=== PATIENT | male | born 1970 | race Caucasian/White ===

== ENCOUNTER 2022-03-16 09:05 | Emergency (ER) | payer SELFPAY ==
--- OUTSIDE RECORDS SUMMARY | 2022-03-16 09:44 | XMS REPORT | Continuity of Care Document ---
:1970 Author Organization [facility] t Address [address] [place] [address] Care Team Providers Name Role Phone Sharpless Primary Care Physician ROYCE GILMORE Attending Clinician Unavailable YOHAN FULLER Attending Clinician Unavailable KEYUR LORENZO Attending Clinician Unavailable JOSEPH LOVELACE Attending Clinician Unavailable Elda Burns DO Attending Clinician 9, [facility] Infusion Chair Attending Clinician Unavailable Joseph Lovelace MD Attending Clinician Bushra Iraheta RN Attending Clinician Rohith Luna LMSW Attending Clinician Unavailable Estefanía Alberts Attending Clinician Doctor Unassigned, [facility] Attending Clinician Unavailable [facility] Attending Clinician Unavailable Gino Garcia Attending Clinician Radha Goldberg Attending Clinician Unavailable Jania Bender LMSW Attending Clinician GINO PENDLETON Attending Clinician Unavailable Aleisha Cook LVN Attending Clinician GAIL HOOKER Attending Clinician Unavailable Janna Cruz DO Attending Clinician Gail Hooker DO Attending Clinician Rick Milton DO Attending Clinician DOMINGO DRISCOLL Attending Clinician Unavailable Morgan GUAMAN, Donna Shrestha Attending Clinician Issac GUAMAN, Hao Attending Clinician Lucia GUAMAN, Kyle Moore Attending Clinician Yamila GUAMAN, Domingo Michel Attending Clinician Steven GUAMAN, Samuel Attending Clinician Odalis GUAMAN, Negin Attending Clinician Alecia GUAMAN, Job Attending Clinician Lanny GUAMAN, Karli Attending Clinician Vish GUAMAN, Keyur Mcnally Attending Clinician Yifan GUAMAN, Nirav Attending Clinician Hannah Manjarrez Attending Clinician LASHAE DURON Attending Clinician Unavailable SAHARA WOOD Attending Clinician Unavailable Ulises Ambrose DO Attending Clinician Rene GUAMAN, Wade Attending Clinician Lul Cisneros DO Attending Clinician Sahara Wood MD Attending Clinician Victor Manuel Hansen MD Attending Clinician Anya GUAMAN, Isma Gunter Attending Clinician RIAN TILLMAN.H. Attending Clinician Unavailable Lashae Holland Attending Clinician Lab, Ang - Db Attending Clinician Unavailable YOHAN BLANCO Attending Clinician Unavailable Kelly Alexander RN Attending Clinician Unavailable KRISTA GARDNER Attending Clinician Unavailable Bonnie GUAMAN, Pavel Baron Attending Clinician Deirdre GUAMAN, Royce Attending Clinician Pavel GUAMAN, Krista Gutierrez Attending Clinician [phone] Chinyere Leon MD Attending Clinician Shreya Aguilar DO Attending Clinician Evonen DO, Lj Attending Clinician Grant GUAMAN, Marge Jones Attending Clinician Luis F GUAMAN, Sathish Attending Clinician Paul GUAMAN, Cheo Jones Attending Clinician Dwayne GUAMAN, Gloria Attending Clinician Cindy Cantu CRNA Attending Clinician [phone] Nino GUAMAN, Patricio Arrington Attending Clinician Naeem Puente Attending Clinician Unavailable Yohan Fuller MD Attending Clinician [phone] Rachel Ji MD Attending Clinician Itzel GUAMAN, Kelsey Attending Clinician Royce Hernández MD Attending Clinician Only, Adc Test Attending Clinician Unavailable ROYCE HERNÁNDEZ Attending Clinician Unavailable Ulices GUAMAN, Niels Lee Attending Clinician Yohan Tee MD Attending Clinician RADHA REEVES Attending Clinician Unavailable Radha Reeves MD Attending Clinician Layne GUAMAN, Rian K.H. Attending Clinician Care, Ang Primary Attending Clinician Unavailable HANNAH ROMERO Attending Clinician Unavailable Anaya Saldivar Attending Clinician Anthony Patel MD Attending Clinician NIRAV GIBSON Attending Clinician Unavailable MARILEE ALLEN Attending Clinician Unavailable DOMINGO RINCON Attending Clinician Unavailable Maral Lopez DO Attending Clinician NAEL MARAL Attending Clinician Unavailable Irasema GUAMAN, Domingo Attending Clinician Shamir Bernal MD Attending Clinician SHAMIR BERNAL Attending Clinician Unavailable Lorenzo LEONARDO, Noe Attending Clinician Unavailable Steph Mancera Attending Clinician Unavailable Visit, Adc Nurse Attending Clinician Unavailable Adilia Chow Attending Clinician RAHUL RODRIGUEZ Attending Clinician Unavailable SHIRA COFFEY Attending Clinician Unavailable CHEO MILLER Admitting Clinician Unavailable YOHAN FULLER Admitting Clinician Unavailable RICK MILTON Admitting Clinician Unavailable Rick Milton DO Admitting Clinician DOMINGO DRISCOLL Admitting Clinician Unavailable Domingo Driscoll MD Admitting Clinician LUL CISNEROS Admitting Clinician Unavailable Victor Manuel Hansen MD Admitting Clinician PAVEL NICOLE Admitting Clinician Unavailable Pavel Nicole MD Admitting Clinician Cheo Miller MD Admitting Clinician Yohan Fuller MD Admitting Clinician [phone] YOHAN TEE Admitting Clinician Unavailable Yohan Tee MD Admitting Clinician Anthony Patel MD Admitting Clinician SHAMIR BERNAL Admitting Clinician Unavailable SHIRA COFEFY Admitting Clinician Unavailable Payers Payer Name Policy Type Policy Number Effective Date Expiration Date Albertina montano [facility] CASEBOOK [id number] 2021 2021 00:00:00 00:00:00 [place] [employer] [id number] 2017 C 00:00:00 [place] PRIMARY [id number] 2018 CARE 00:00:00 MEDICAID SSI PENDING 2021 PENDING 00:00:00 Problems Condition Condition Condition Status Onset Resolution Last Treating Co mments Source Name Details Category Date Date Treatment Clinician Date Overlappin Overlappin Disease Active 2021-03 U nivers g g 2-04 [place] malignant [place] ne[place] Med[place] of colon of colon Branch Hyperkalem Hyperkalem Disease Active 2021-03 U [place] ia ia 0-27 ity of 00:00: [place] 00 Medical Branch E46 E46 Disease Active 2021-03 Univers Unspecifie Unspecifie 0-01 it y of d severe d severe 00:00: [place] protein-ca protein-ca 00 Me dical edwina bland Branch malnutriti malnutriti on on Acute GI Acute GI Disease Active Unive rs bleeding bleeding 9-30 ity of 00:00: [place] 00 Medical Branch Anemia, Anemia, Disease Active Univers unspecifie unspecifie 8-03 it y of d type d type 00:00: [place] 00 Medical Branch Obesity Obesity Disease Active Univers (BMI (BMI 2-28 ity of 30-39.9) 30-39.9) 00:00: [place] 00 Medical Branch GIB GIB Disease Active Univers (gastroint (gastroint 2-28 it y of estinal estinal 00:00: [place] bleeding) bleeding) 00 Medi nani Branch Gastrointe Gastrointe Disease Active Overview : Univers stinal stinal 2-15 Formattin ity of hemorrhage hemorrhage 00:00: g of this [place] , , 00 note Medical unspecifie unspecifie might be Branch d d different gastrointe gastrointe from the stinal stinal original. hemorrhage hemorrhage Added type type automatic ally from request for surgery [id number] Hydronephr Hydronephr Disease Active 2020-03 U [place] osis of osis of 1-07 ity of left left 00:00: [place] kidney kidney 00 Medical Branch Non-functi Non-functi Disease Active Overview : Univers oning oning 11-03 Formattin ity of kidney kidney 00:00: g of this [place] 00 note Medical might be Branch different from the original. Added automatic ally from request for surgery [id number] UPJ UPJ Disease Active Overview: Univer s (ureterope (ureterope 11-03 Formattin ity of lvic lvic 00:00: g of this [place] junction) junction) 00 note Medi nani obstructio obstructio might be Branch n n different from the original. Added automatic ally from request for surgery [id number] Ureteral Ureteral Disease Active Overview: Un cecelia stricture stricture 11-03 Formattin i ty of 00:00: g of this note Medical might be Branch different from the original. Added automatic ally from request for surgery [id number] Renal Renal Disease Active Overview: Univer s stone stone 11-03 Formattin ity of 00:00: g of this note Medical might be Branch different from the original. Added automatic ally from request for surgery [id number] Calculus Calculus Disease Active Overview: Un cecelia of kidney of kidney 4-15 Formattin i ty of 00:00: g of this note Medical might be Branch different from the original. Added automatic ally from request for surgery [id number] Non-STEMI Non-STEMI Disease Active Uni vers (non-ST (non-ST 3-27 ity of elevated elevated 00:00: [place] myocardial myocardial 00 Me dical infarction infarction Br anch ) ) Coronary Coronary Disease Active Unive rs artery artery 3-27 ity of disease disease 00:00: [place] involving involving 00 [facility] [place] Branch coronary coronary artery of artery of [place] heart heart Iron Iron Disease Active Univers deficiency deficiency 3-27 it y of anemia anemia 00:00: [place] 00 Medical Branch SHASHI (acute SHASHI (acute Disease Active U nivers kidney kidney 3-27 ity of injury) injury) 00:00: [place] 00 Medical Branch 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 1-17 [facility] athy athy 00:00: Medical 00 Center Chronic Chronic Disease Active [facility] systolic systolic 00:00: Medica l and and 00 Center diastolic diastolic CHF CHF (congestiv (congestiv e heart e heart failure) failure) DM2 DM2 Disease Active [facility] (diabetes (diabetes 1-16 [facility] mellitus, mellitus, 00:00: [facility] type 2) type 2) 00 Center Anemia Anemia Disease Active [facility] 00:[facility]: Medical 00 Center Hyperlipid Hyperlipid Disease Active [facility] em[facility] emia 1[facility]16 [facility] 00:[facility]: Medical 00 Center Ex-smoker Ex-smoker Disease Active [facility] 00:00: Medical 00 [place] Acute Acute Disease Active 2017- [facility] ischemic ischemic 1-15 [facility] stroke stroke 00:00: Medical [place] Essential Essential Disease Active 2017- [facility] hypertensi hypertensi 1-15 [facility] k[facility] on on 00:00: Medical 00 [place] Allergies, Adverse Reactions, Alerts Allergy Allergy Status Severity Reaction(s) Onset Inactive Treating Comm ents Source Name Type Date Date Clinician NO KNOWN Drug Active Univers ALLERGIE Class ity of S [facility] NO KNOWN Allergy Active [facility] Social History Social Habit Start Date Stop Date Quantity Comments Source History of tobacco Passive smoker Un iversity of use [place] [facility] History SDCA University o f Alcohol Comment [place] Med ical [facility] Exposure to 2022-03-03 2022-03-13 Not sure University SARS-CoV-2 (event) 00:00:00 14:22:00 [facility] Branch Alcohol intake 2022-01-12 2022-01-12 Current University of 00:00:00 00:00:00 non-drinker of [facility] alcohol Branch (finding) History SDOH 2022-01-02 2022-01-02 1 University o f Financial 00:00:00 00:00:00 [place] [facility] History SDOH Food 2022-01-02 2022-01-02 1 Univers ity of Worry 00:00:00 00:00:00 [place] [facility] History SDOH Food 2022-01-02 2022-01-02 1 Univers ity of Scarcity 00:00:00 00:00:00 [place] [facility] History SDOH 2022-01-02 2022-01-02 1 University o f Transport Med 00:00:00 00:00:00 [place] Medic al Branch History SDOH 2022-01-02 2022-01-02 1 University o f Transport Non-Med 00:00:00 00:00:00 [place] M edical Branch History SDOH 2021-10-25 2021-10-25 1 University o f Alcohol Frequency 00:00:00 00:00:00 [place] M edical Branch History SDOH 2021-10-25 2021-10-25 0 University o f Alcohol Std Drinks 00:00:00 00:00:00 [place] [facility] History SDOH 2021-10-25 2021-10-25 1 University o f Alcohol Binge 00:00:00 00:00:00 [place] Medic al Branch Education 2020-11-12 2020-11-12 16 [facility] 00:00:00 00:00:00 [facility] Cigarettes smoked 2017-03-21 2017-03-[address] [facility] current (pack per 00:00:00 00:00:00 [facility] Center day) - Reported Cigarette 2017-03-21 2017-03-[address] [facility] pack-years 00:00:00 00:00:00 [facility] Tobacco use and 2017-03-21 2017-03-[address] [facility] [address] [facility] k[facility] exposure 00:00:00 00:00:00 [facility] Tobacco Comment 2017-03-21 2017-03-21 1 pack per day, [facility] 00:00:00 00:00:00 stopped 1 year Medical Ce nter ago Sex Assigned At [address] [facility] kes 00:00:00 00:00:00 [facility] Smoking Status Start Date Stop Date Source Ex-smoker 2021-12-29 00:00:00 2021-12-29 00:00:00 Universi ty [facility] Medications Ordered Filled Start Stop Current Ordering Indication Dosage Frequency Signature Comments Components Source Medication Medication Date Date Medication? Clinician (SIG) Name Name fluorouraci 2022- Yes [id number] 2400mg/ 4,440 mg Univers L (ADRUCIL) 03-14 m2 (2,400 ity o f 4,440 mg in 22:30: 20:29 mg/m2 [place] NaCl 0.9% 00 :00 ?1.85 m2 Medica l (NS) 241 mL Treatment Bra [facility] infusion Plan BSA pump (for from home use) Recorded weight), Continuous IV Infusion, OVER 46 HOURS, First dose on Sun03/14/22 at 1630, For 1 dose fluorouraci 2022- No [id number] 400mg/m 740 mg Univers L (ADRUCIL) 03-14 2 (400 mg/m2 i ty of 740 mg in 22:15: 21:25 ?1.85 m2 [place] as NaCl 0.9% 00 :00 Treatment Medic al (NS) 100 mL Plan BSA Bran ch infusion from Recorded weight), IV Infusion, ONCE, Administer over 15 Minutes, On Sun03/14/22 at 1615, For 1 dose
Do not refrigerat e.
leucovorin 2022- No [id number] 400mg/m 740 mg Univers 740 mg in 03-14 2 (400 mg/m2 ity of D5W 250 mL 20:15: 21:11 ?1.85 m2 [place] infusion 00 :00 Treatment Medica l Plan BSA Branch from Recorded weight), IV Piggyback, ONCE, 1 dose, On Sun03/14/22 at 1415, Administer over 120 Minutes, 250 mL bevacizumab 2022- No [id number] 5mg/kg 400 mg Univers -bvzr 03-14 (rounded ity of (ZIRABEV) 18:45: 20:32 [place] 364.5 [place] 400 mg in 00 :00 mg = 5 Medical NaCl 0.9% mg/kg Branch (NS) 100 mL ?72.9 kg infusion Treatment plan Recorded weight), IV Infusion, ONCE, Administer over 90 Minutes, On Sun03/14/22 at 1245, For 1 dose
Sh ould be diluted in 0.9% Sodium Chloride, not D5W. May store diluted solution in refrigerat or for up to 8 hours.&nbs p;Infuse 1st infusion for 90 minutes; 2nd infusion for 60 minutes; subsequent infusions for 30 minutes if well tolerated.
palonosetro 2022- No [id number] .25mg 0.25 mg, Univers n (ALOXI) 03-14 Intravenou ity of injection 18:15: 18:17 s, ONCE, 1 [place] 0.25 mg 00 :00 dose, On Medical Tue Branch 03/14/22 at 1215, Routine
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 Restricted medication : [facility] dexamethaso 2022- No [id number] 10mg 10 mg, Univers ne sod phos 03-14 Slow IV ity of PF 18:15: 18:18 Push, [place] injection 00 :00 ONCE, 1 Medical 10 mg dose, On Branch Sun10/23 at 1215, 1 mL NaCl 0.9% 2022- No [id number] 500mL at 250 Univers (NS) IV 03-14-10 mL/hr, IV ity of infusion 18:15: 19:15 Infusion, [place] 500 mL 00 :00 ONCE, 1 Medical dose, On Branch Sun03/14/22 at 1215, Routine HYDROcodone 2022- Yes [id number] 1{tbl} Take 1 U nivers -acetaminop 03-1317 tablet by it y of hen ([place]) 00:00: 05:59 [place] 5-325 mg 00 :00 every 12 Medical tablet (twelve) Branch hours as needed for Pain (scale 7-10) for up to 7 days. Indication s: acute pain HYDROcodone 2022- Yes [id number] 1{tbl} Take 1 U nivers -acetaminop -03-21 tablet by it y of hen ([place]) 00:00: 05:59 [place] 5-325 mg 00 :00 every 12 Medical tablet (twelve) Branch hours as needed for Pain (scale 7-10) for up to 7 days. Indication s: acute pain HYDROcodone 2022- Yes [id number] 1{tbl} Take 1 U nivers -acetaminop 03-13 tablet by it y of hen ([place]) 00:00: 05:59 [place] 5-325 mg 00 :00 every 12 Medical tablet (twelve) Branch hours as needed for Pain (scale 7-10) for up to 7 days. Indication s: acute pain HYDROcodone 2022- Yes [id number] 1{tbl} Take 1 U nivers -acetaminop -17 tablet by it y of hen ([place]) 00:00: 05:59 [place] 5-325 mg 00 :00 every 12 Medical tablet (twelve) Branch hours as needed for Pain (scale 7-10) for up to 7 days. Indication s: acute pain HYDROcodone 2022- Yes [id number] 1{tbl} Take 1 U nivers -acetaminop 03-1317 tablet by it y of hen ([place]) 00:00: 05:59 [place] 5-325 mg 00 :00 every 12 Medical tablet (twelve) Branch hours as needed for Pain (scale 7-10) for up to 7 days. Indication s: acute pain HYDROcodone 2022- Yes [id number] 1{tbl} Take 1 U nivers -acetaminop 03-13 tablet by it y of hen ([place]) 00:00: 05:59 [place] 5-325 mg 00 :00 every 12 Medical tablet (twelve) Branch hours as needed for Pain (scale 7-10) for up to 7 days. Indication s: acute pain HYDROcodone 2022- Yes [id number] 1{tbl} Take 1 U nivers -acetaminop 03-13 tablet by it y of hen ([place]) 00:00: 05:59 [place] 5-325 mg 00 :00 every 12 Medical tablet (twelve) Branch hours as needed for Pain (scale 7-10) for up to 7 days. Indication s: acute pain HYDROcodone 2022- Yes [id number] 1{tbl} Take 1 U nivers -acetaminop 03-13 tablet by it y of hen ([place]) 00:00: 05:59 [place] 5-325 mg 00 :00 every 12 Medical tablet (twelve) Branch hours as needed for Pain (scale 7-10) for up to 7 days. Indication s: acute pain HYDROcodone 2022- Yes [id number] 1{tbl} Take 1 U nivers -acetaminop 03-13 tablet by it y of hen ([place]) 00:00: 05:59 [place] 5-325 mg 00 :00 every 12 Medical tablet (twelve) Branch hours as needed for Pain (scale 7-10) for up to 7 days. Indication s: acute pain proCHLORper 2021-03 Yes [id number] 10mg Take 1 Univers azine 10 mg 2-06 tablet by ity of tablet 00:00: mouth [place] 00 every 6 Medical (six) Branch hours as needed for Nausea and Vomiting (N/V). ondansetron 2021-03 Yes [id number] 4mg Take 1 Univers 4 mg 2-06 tablet by ity of disintegrat 00:00: mouth [place] ing tablet 00 every 8 Medica l (eight) Branch hours as needed for Nausea and Vomiting (N/V). proCHLORper 2021-03 Yes [id number] 10mg Take 1 Univers azine 10 mg 2-06 tablet by ity of tablet 00:00: mouth [place] 00 every 6 Medical (six) Branch hours as needed for Nausea and Vomiting (N/V). ondansetron 2021-03 Yes [id number] 4mg Take 1 Univers 4 mg 2-06 tablet by ity of disintegrat 00:00: mouth [place] ing tablet 00 every 8 Medica l (eight) Branch hours as needed for Nausea and Vomiting (N/V). proCHLORper 2021-03 Yes [id number] 10mg Take 1 Univers azine 10 mg 2-06 tablet by ity of tablet 00:00: mouth [place] 00 every 6 Medical (six) Branch hours as needed for Nausea and Vomiting (N/V). ondansetron 2021-03 Yes [id number] 4mg Take 1 Univers 4 mg 2-06 tablet by ity of disintegrat 00:00: mouth [place] ing tablet 00 every 8 Medica l (eight) Branch hours as needed for Nausea and Vomiting (N/V). proCHLORper 2021-03 Yes [id number] 10mg Take 1 Univers azine 10 mg 2-06 tablet by ity of tablet 00:00: mouth [place] 00 every 6 Medical (six) Branch hours as needed for Nausea and Vomiting (N/V). ondansetron 2021-03 Yes [id number] 4mg Take 1 Univers 4 mg 2-06 tablet by ity of disintegrat 00:00: mouth [place] ing tablet 00 every 8 Medica l (eight) Branch hours as needed for Nausea and Vomiting (N/V). proCHLORper 2021-03 Yes [id number] 10mg Take 1 Univers azine 10 mg 2-06 tablet by ity of tablet 00:00: mouth [place] 00 every 6 Medical (six) Branch hours as needed for Nausea and Vomiting (N/V). ondansetron 2021-03 Yes [id number] 4mg Take 1 Univers 4 mg 2-06 tablet by ity of disintegrat 00:00: mouth [place] ing tablet 00 every 8 Medica l (eight) Branch hours as needed for Nausea and Vomiting (N/V). proCHLORper 2021-03 Yes [id number] 10mg Take 1 Univers azine 10 mg 2-06 tablet by ity of tablet 00:00: mouth [place] 00 every 6 Medical (six) Branch hours as needed for Nausea and Vomiting (N/V). ondansetron 2021-03 Yes [id number] 4mg Take 1 Univers 4 mg 2-06 tablet by ity of disintegrat 00:00: mouth [place] ing tablet 00 every 8 Medica l (eight) Branch hours as needed for Nausea and Vomiting (N/V). proCHLORper 2021-03 Yes [id number] 10mg Take 1 Univers azine 10 mg 2-06 tablet by ity of tablet 00:00: mouth [place] 00 every 6 Medical (six) Branch hours as needed for Nausea and Vomiting (N/V). ondansetron 2021-03 Yes [id number] 4mg Take 1 Univers 4 mg 2-06 tablet by ity of disintegrat 00:00: mouth [place] ing tablet 00 every 8 Medica l (eight) Branch hours as needed for Nausea and Vomiting (N/V). proCHLORper 2021-03 Yes [id number] 10mg Take 1 Univers azine 10 mg 2-06 tablet by ity of tablet 00:00: mouth [place] 00 every 6 Medical (six) Branch hours as needed for Nausea and Vomiting (N/V). ondansetron 2021-03 Yes [id number] 4mg Take 1 Univers 4 mg 2-06 tablet by ity of disintegrat 00:00: mouth [place] ing tablet 00 every 8 Medica l (eight) Branch hours as needed for Nausea and Vomiting (N/V). proCHLORper 2021-03 Yes [id number] 10mg Take 1 Univers azine 10 mg 2-06 tablet by ity of tablet 00:00: mouth [place] 00 every 6 Medical (six) Branch hours as needed for Nausea and Vomiting (N/V). ondansetron 2021-03 Yes [id number] 4mg Take 1 Univers 4 mg 2-06 tablet by ity of disintegrat 00:00: mouth [place] ing tablet 00 every 8 Medica l (eight) Branch hours as needed for Nausea and Vomiting (N/V). proCHLORper 2021-03 Yes [id number] 10mg Take 1 Univers azine 10 mg 2-06 tablet by ity of tablet 00:00: mouth [place] 00 every 6 Medical (six) Branch hours as needed for Nausea and Vomiting (N/V). ondansetron 2021-03 Yes [id number] 4mg Take 1 Univers 4 mg 2-06 tablet by ity of disintegrat 00:00: mouth [place] ing tablet 00 every 8 Medica l (eight) Branch hours as needed for Nausea and Vomiting (N/V). proCHLORper 2021-03 Yes [id number] 10mg Take 1 Univers azine 10 mg 2-06 tablet by ity of tablet 00:00: mouth [place] 00 every 6 Medical (six) Branch hours as needed for Nausea and Vomiting (N/V). ondansetron 2021-03 Yes [id number] 4mg Take 1 Univers 4 mg 2-06 tablet by ity of disintegrat 00:00: mouth [place] ing tablet 00 every 8 Medica l (eight) Branch hours as needed for Nausea and Vomiting (N/V). proCHLORper 2021-03 Yes [id number] 10mg Take 1 Univers azine 10 mg 2-06 tablet by ity of tablet 00:00: mouth [place] 00 every 6 Medical (six) Branch hours as needed for Nausea and Vomiting (N/V). ondansetron 2021-03 Yes [id number] 4mg Take 1 Univers 4 mg 2-06 tablet by ity of disintegrat 00:00: mouth [place] ing tablet 00 every 8 Medica l (eight) Branch hours as needed for Nausea and Vomiting (N/V). proCHLORper 2021-03 Yes [id number] 10mg Take 1 Univers azine 10 mg 2-06 tablet by ity of tablet 00:00: mouth [place] 00 every 6 Medical (six) Branch hours as needed for Nausea and Vomiting (N/V). ondansetron 2021-03 Yes [id number] 4mg Take 1 Univers 4 mg 2-06 tablet by ity of disintegrat 00:00: mouth [place] ing tablet 00 every 8 Medica l (eight) Branch hours as needed for Nausea and Vomiting (N/V). proCHLORper 2021-03 Yes [id number] 10mg Take 1 Univers azine 10 mg 2-06 tablet by ity of tablet 00:00: mouth [place] 00 every 6 Medical (six) Branch hours as needed for Nausea and Vomiting (N/V). ondansetron 2021-03 Yes [id number] 4mg Take 1 Univers 4 mg 2-06 tablet by ity of disintegrat 00:00: mouth [place] ing tablet 00 every 8 Medica l (eight) Branch hours as needed for Nausea and Vomiting (N/V). proCHLORper 2021-03 Yes [id number] 10mg Take 1 Univers azine 10 mg 2-06 tablet by ity of tablet 00:00: mouth [place] 00 every 6 Medical (six) Branch hours as needed for Nausea and Vomiting (N/V). ondansetron 2021-03 Yes [id number] 4mg Take 1 Univers 4 mg 2-06 tablet by ity of disintegrat 00:00: mouth [place] ing tablet 00 every 8 Medica l (eight) Branch hours as needed for Nausea and Vomiting (N/V). proCHLORper 2021-03 Yes [id number] 10mg Take 1 Univers azine 10 mg 2-06 tablet by ity of tablet 00:00: mouth [place] 00 every 6 Medical (six) Branch hours as needed for Nausea and Vomiting (N/V). ondansetron 2021-03 Yes [id number] 4mg Take 1 Univers 4 mg 2-06 tablet by ity of disintegrat 00:00: mouth [place] ing tablet 00 every 8 Medica l (eight) Branch hours as needed for Nausea and Vomiting (N/V). proCHLORper 2021-03 Yes [id number] 10mg Take 1 Univers azine 10 mg 2-06 tablet by ity of tablet 00:00: mouth [place] 00 every 6 Medical (six) Branch hours as needed for Nausea and Vomiting (N/V). ondansetron 2021-03 Yes [id number] 4mg Take 1 Univers 4 mg 2-06 tablet by ity of disintegrat 00:00: mouth [place] ing tablet 00 every 8 Medica l (eight) Branch hours as needed for Nausea and Vomiting (N/V). proCHLORper 2021-03 Yes [id number] 10mg Take 1 Univers azine 10 mg 2-06 tablet by ity of tablet 00:00: mouth [place] 00 every 6 Medical (six) Branch hours as needed for Nausea and Vomiting (N/V). ondansetron 2021-03 Yes [id number] 4mg Take 1 Univers 4 mg 2-06 tablet by ity of disintegrat 00:00: mouth [place] ing tablet 00 every 8 Medica l (eight) Branch hours as needed for Nausea and Vomiting (N/V). proCHLORper 2021-03 Yes [id number] 10mg Take 1 [facility] azine 10 mg 2-06 tablet by [facility] of tablet 00:00: mouth [place] 00 every 6 Medical (six) Branch hours as needed for Nausea and Vomiting (N/V). ondansetron 2021-03 Yes [id number] 4mg Take 1 [facility] 4 mg 2-06 tablet by ity of disintegrat 00:00: mouth [place] ing tablet 00 every 8 Medica l (eight) Branch hours as needed for Nausea and Vomiting (N/V). proCHLORper 2021-03 Yes [id number] 10mg Take 1 [facility] azine 10 mg 2-06 tablet by ity of tablet 00:00: mouth [place] 00 every 6 Medical (six) Branch hours as needed for Nausea and Vomiting (N/V). ondansetron 2021-03 Yes [id number] 4mg Take 1 [facility] 4 mg 2-06 tablet by ity of disintegrat 00:00: mouth [place] ing tablet 00 every 8 Medica l (eight) Branch hours as needed for Nausea and Vomiting (N/V). proCHLORper 2021-03 Yes [id number] 10mg Take 1 [facility] azine 10 mg 2-06 tablet by ity of tablet 00:00: mouth [place] 00 every 6 Medical (six) Branch hours as needed for Nausea and Vomiting (N/V). ondansetron 2021-03 Yes [id number] 4mg Take 1 [facility] 4 mg 2-06 tablet by ity of disintegrat 00:00: mouth [place] ing tablet 00 every 8 Medica l (eight) Branch hours as needed for Nausea and Vomiting (N/V). proCHLORper 2021-03 Yes [id number] 10mg Take 1 [facility] azine 10 mg 2-06 tablet by ity of tablet 00:00: mouth [place] 00 every 6 Medical (six) Branch hours as needed for Nausea and Vomiting (N/V). ondansetron 2021-03 Yes [id number] 4mg Take 1 [facility] 4 mg 2-06 tablet by ity of disintegrat 00:00: mouth [place] ing tablet 00 every 8 Medica l (eight) Branch hours as needed for Nausea and Vomiting (N/V). proCHLORper 2021-03 Yes [id number] 10mg Take 1 [facility] azine 10 mg 2-06 tablet by ity of tablet 00:00: mouth [place] 00 every 6 Medical (six) Branch hours as needed for Nausea and Vomiting (N/V). ondansetron 2021-03 Yes [id number] 4mg Take 1 [facility] 4 mg 2-06 tablet by ity of disintegrat 00:00: mouth [place] ing tablet 00 every 8 Medica l (eight) Branch hours as needed for Nausea and Vomiting (N/V). amLODIPine 2021-03 Yes [id number] 10mg Take 1 [facility] 10 mg 1-23 tablet by ity of tablet 00:00: mouth in [place] 00 the Medical morning. Branch tamsulosin 2021-03 Yes [id number] .4mg Take 1 [facility] (FLOMAX) 1-23 capsule by ity o f 0.4 mg 24 00:00: mouth in [facility] s hr capsule 00 the Medical morning. Branch psyllium 2021-03 Yes [id number] 1{packe Take 1 [facility] husk 3.4 1-23 t} Packet by [facility] gram oral 00:00: mouth [place] powder 00 the Medical packet morning Branch and 1 Packet at noon and 1 Packet in the evening. diphenoxyla 2021-03 Yes [id number] 1{tbl} Take 1 [facility] te-atropine 1-23 tablet by ity of 2.5-0.025 00:00: mouth [place] mg tablet 00 every 6 Medical (six) Branch hours. glipiZIDE 5 2021-03 Yes [id number] TAKE 1 [facility] mg tablet 1-23 TABLET BY ity o f 00:00: MOUTH [place] 00 TWICE Medical DAILY Branch BEFORE BREAKFAST AND BEFORE SUPPER fenofibrate 2021-03 Yes [id number] 134mg Take 1 [facility] micronized 1-23 capsule by ity of 134 mg 00:00: mouth in [place] capsule 00 the Medical morning. Branch sodium 2021-03 Yes [id number] 15mL Take 15 mL [facility] nivers citrate-cit 1-23 by mouth ity of nayan acid 00:00: in the [place] 500-334 00 morning Medical mg/5 mL and 15 mL Branch solution in the evening. loperamide 2021-03 Yes [id number] 2mg Take 1 [facility] nivers 2 mg 1-23 capsule by ity of capsule 00:00: mouth [place] 00 every 4 Medical (four) Branch hours. metoprolol 2021-03 Yes [id number] 25mg Take 1 [facility] nivers tartrate 25 1-23 tablet by [facility] of mg tablet 00:00: [place] 00 the Medical morning Branch and 1 tablet in the evening. furosemide 2021-03 Yes [id number] 40mg Take 1 [facility] nivers 40 mg 1-23 tablet by ity of tablet 00:00: mouth in [place] 00 the Medical morning. Branch ergocalcife 2021-03 Yes [id number] 23752D Take 1 [facility] rol, 1-23 capsule by ity of vitamin d2, 00:00: mouth [place] 1,250 mcg 00 weekly. Medical (50,000 Branch unit) capsule FLUoxetine 2021-03 Yes [id number] 60mg Take 3 [facility] nivers 20 mg 1-23 capsules ity of capsule 00:00: by mouth [place] 00 in the Medical morning. Branch atorvastati 2021-03 Yes [id number] 80mg Take 1 [facility] n 80 mg 1-23 tablet by ity of tablet 00:00: mouth at [place] 00 bedtime. Medical Branch simethicone 2021-03 Yes [id number] 80mg Take 1 [facility] 80 mg 1-23 tablet by ity of chewable 00:00: mouth in [place] tablet 00 the Medical morning Branch and 1 tablet at noon and 1 tablet in the evening. Take with meals. amLODIPine 2021-03 Yes [id number] 10mg Take 1 [facility] 10 mg 1-23 tablet by ity of tablet 00:00: mouth in [place] 00 the Medical morning. Branch tamsulosin 2021-03 Yes [id number] .4mg Take 1 [facility] (FLOMAX) 1-23 capsule by ity o f 0.4 mg 24 00:00: mouth in [facility] s hr capsule 00 the Medical morning. Branch psyllium 2021-03 Yes [id number] 1{packe Take 1 [facility] husk 3.4 1-23 t} Packet by [facility] of gram oral 00:00: mouth [place] powder 00 the Medical packet morning Branch and 1 Packet at noon and 1 Packet in the evening. diphenoxyla 2021-03 Yes [id number] 1{tbl} Take 1 [facility] te-atropine 1-23 tablet by ity of 2.5-0.025 00:00: mouth [place] mg tablet 00 every 6 Medical (six) Branch hours. glipiZIDE 5 2021-03 Yes [id number] TAKE 1 [facility] mg tablet 1-23 TABLET BY ity o f 00:00: MOUTH [place] 00 TWICE Medical DAILY Branch BEFORE BREAKFAST AND BEFORE SUPPER fenofibrate 2021-03 Yes [id number] 134mg Take 1 [facility] micronized 1-23 capsule by ity of 134 mg 00:00: mouth in [place] capsule 00 the Medical morning. Branch sodium 2021-03 Yes [id number] 15mL Take 15 mL U nivers citrate-cit 1-23 by mouth ity of nayan acid 00:00: in the [place] 500-334 00 morning Medical mg/5 mL and 15 mL Branch solution in the evening. loperamide 2021-03 Yes [id number] 2mg Take 1 [facility] nivers 2 mg 1-23 capsule by ity of capsule 00:00: mouth [place] 00 every 4 Medical (four) Branch hours. metoprolol 2021-03 Yes [id number] 25mg Take 1 U nivers tartrate 25 1-23 tablet by ity of mg tablet 00:00: mouth in [facility] s 00 the Medical morning Branch and 1 tablet in the evening. furosemide 2021-03 Yes [id number] 40mg Take 1 [facility] nivers 40 mg 1-23 tablet by ity of tablet 00:00: mouth in [place] 00 the Medical morning. Branch ergocalcife 2021-03 Yes [id number] 88848G Take 1 [facility] rol, 1-23 capsule by ity of vitamin d2, 00:00: mouth [place] 1,250 mcg 00 weekly. Medical (50,000 Branch unit) capsule FLUoxetine 2021-03 Yes [id number] 60mg Take 3 U nivers 20 mg 1-23 capsules ity of capsule 00:00: by mouth [place] 00 in the Medical morning. Branch atorvastati 2021-03 Yes [id number] 80mg Take 1 [facility] n 80 mg 1-23 tablet by ity of tablet 00:00: mouth at [place] 00 bedtime. Medical Branch simethicone 2021-03 Yes [id number] 80mg Take 1 [facility] 80 mg 1-23 tablet by ity of chewable 00:00: mouth in [place] tablet 00 the Medical morning Branch and 1 tablet at noon and 1 tablet in the evening. Take with meals. amLODIPine 2021-03 Yes [id number] 10mg Take 1 [facility] 10 mg 1-23 tablet by ity of tablet 00:00: mouth in [place] 00 the Medical morning. Branch tamsulosin 2021-03 Yes [id number] .4mg Take 1 [facility] (FLOMAX) 1-23 capsule by ity o f 0.4 mg 24 00:00: mouth in [facility] hr capsule 00 the Medical morning. Branch psyllium 2021-03 Yes [id number] 1{packe Take 1 [facility] husk 3.4 1-23 t} Packet by ity of gram oral 00:00: mouth in [facility] powder 00 the Medical packet morning Branch and 1 Packet at noon and 1 Packet in the evening. diphenoxyla 2021-03 Yes [id number] 1{tbl} Take 1 [facility] te-atropine 1-23 tablet by ity of 2.5-0.025 00:00: mouth [place] mg tablet 00 every 6 Medical (six) Branch hours. glipiZIDE 5 2021-03 Yes [id number] TAKE 1 [facility] mg tablet 1-23 TABLET BY ity o f 00:00: MOUTH [place] 00 TWICE Medical DAILY Branch BEFORE BREAKFAST AND BEFORE SUPPER fenofibrate 2021-03 Yes [id number] 134mg Take 1 [facility] micronized 1-23 capsule by ity of 134 mg 00:00: mouth in [place] capsule 00 the Medical morning. Branch sodium 2021-03 Yes [id number] 15mL Take 15 mL U nivers citrate-cit 1-23 by mouth ity of nayan acid 00:00: in the [place] 500-334 morning Medical mg/5 mL and 15 mL Branch solution in the evening. loperamide 2021-03 Yes [id number] 2mg Take 1 [facility] nivers 2 mg 1-23 capsule by ity of capsule 00:00: mouth [place] 00 every 4 Medical (four) Branch hours. metoprolol 2021-03 Yes [id number] 25mg Take 1 U nivers tartrate 25 1-23 tablet by ity of mg tablet 00:00: mouth in [facility] 00 the Medical morning Branch and 1 tablet in the evening. furosemide 2021-03 Yes [id number] 40mg Take 1 [facility] nivers 40 mg 1-23 tablet by ity of tablet 00:00: mouth in [place] 00 the Medical morning. Branch ergocalcife 2021-03 Yes [id number] 42936O Take 1 [facility] rol, 1-23 capsule by ity of vitamin d2, 00:00: mouth [place] 1,250 mcg 00 weekly. Medical (50,000 Branch unit) capsule FLUoxetine 2021-03 Yes [id number] 60mg Take 3 U nivers 20 mg 1-23 capsules ity of capsule 00:00: by mouth [place] 00 in the Medical morning. Branch atorvastati 2021-03 Yes [id number] 80mg Take 1 [facility] n 80 mg 1-23 tablet by ity of tablet 00:00: mouth at [place] 00 bedtime. Medical Branch simethicone 2021-03 Yes [id number] 80mg Take 1 [facility] 80 mg 1-23 tablet by ity of chewable 00:00: mouth in [place] tablet 00 the Medical morning Branch and 1 tablet at noon and 1 tablet in the evening. Take with meals. amLODIPine 2021-03 Yes [id number] 10mg Take 1 [facility] 10 mg 1-23 tablet by ity of tablet 00:00: mouth in [place] 00 the Medical morning. Branch tamsulosin 2021-03 Yes [id number] .4mg Take 1 [facility] (FLOMAX) 1-23 capsule by ity o f 0.4 mg 24 00:00: mouth in [facility] s hr capsule 00 the Medical morning. Branch psyllium 2021-03 Yes [id number] 1{packe Take 1 [facility] husk 3.4 1-23 t} Packet by ity of gram oral 00:00: mouth [place] powder 00 the Medical packet morning Branch and 1 Packet at noon and 1 Packet in the evening. diphenoxyla 2021-03 Yes [id number] 1{tbl} Take 1 [facility] te-atropine 1-23 tablet by ity of 2.5-0.025 00:00: mouth [place] mg tablet 00 every 6 Medical (six) Branch hours. glipiZIDE 5 2021-03 Yes [id number] TAKE 1 [facility] mg tablet 1-23 TABLET BY ity o f 00:00: MOUTH [place] 00 TWICE Medical DAILY Branch BEFORE BREAKFAST AND BEFORE SUPPER fenofibrate 2021-03 Yes [id number] 134mg Take 1 [facility] micronized 1-23 capsule by ity of 134 mg 00:00: mouth in [place] capsule 00 the Medical morning. Branch sodium 2021-03 Yes [id number] 15mL Take 15 mL U nivers citrate-cit 1-23 by mouth ity of nayan acid 00:00: in the [place] 500-334 00 morning Medical mg/5 mL and 15 mL Branch solution in the evening. loperamide 2021-03 Yes [id number] 2mg Take 1 U nivers 2 mg 1-23 capsule by ity of capsule 00:00: mouth [place] 00 every 4 Medical (four) Branch hours. metoprolol 2021-03 Yes [id number] 25mg Take 1 U nivers tartrate 25 1-23 tablet by ity of mg tablet 00:00: mouth in [facility] 00 the Medical morning Branch and 1 tablet in the evening. furosemide 2021-03 Yes [id number] 40mg Take 1 U nivers 40 mg 1-23 tablet by ity of tablet 00:00: mouth in [place] 00 the morning. Branch ergocalcife 2021-03 Yes [id number] Take 1 [facility] rol, 1-23 capsule by ity of vitamin d2, 00:00: mouth [place] 1,250 mcg 00 weekly. Medical (50,000 Branch unit) capsule FLUoxetine 2021-03 Yes [id number] 60mg Take 3 U nivers 20 mg 1-23 capsules ity of capsule 00:00: by mouth [place] 00 in the Medical morning. Branch atorvastati 2021-03 Yes [id number] 80mg Take 1 [facility] n 80 mg 1-23 tablet by ity of tablet 00:00: mouth at [place] 00 bedtime. Medical Branch simethicone 2021-03 Yes [id number] 80mg Take 1 [facility] 80 mg 1-23 tablet by ity of chewable 00:00: mouth in [place] tablet 00 the Medical morning Branch and 1 tablet at noon and 1 tablet in the evening. Take with meals. amLODIPine 2021-03 Yes [id number] 10mg Take 1 [facility] 10 mg 1-23 tablet by ity of tablet 00:00: mouth in [place] 00 the morning. Branch tamsulosin 2021-03 Yes [id number] .4mg Take 1 [facility] (FLOMAX) 1-23 capsule by ity o f 0.4 mg 24 00:00: mouth in [facility] s hr capsule 00 the morning. Branch psyllium 2021-03 Yes [id number] 1{packe Take 1 [facility] husk 3.4 1-23 t} Packet by ity of gram oral 00:00: mouth [place] powder 00 the Medical packet morning Branch and 1 Packet at noon and 1 Packet in the evening. diphenoxyla 2021-03 Yes [id number] 1{tbl} Take 1 [facility] te-atropine 1-23 tablet by ity of 2.5-0.025 00:00: mouth [place] mg tablet 00 every 6 Medical (six) Branch hours. glipiZIDE 5 2021-03 Yes [id number] TAKE 1 [facility] mg tablet 1-23 TABLET BY ity o f 00:00: MOUTH [place] 00 TWICE Medical DAILY Branch BEFORE BREAKFAST AND BEFORE SUPPER fenofibrate 2021-03 Yes [id number] 134mg Take 1 [facility] micronized 1-23 capsule by ity of 134 mg 00:00: mouth in [place] capsule 00 the Medical morning. Branch sodium 2021-03 Yes [id number] 15mL Take 15 mL U nivers citrate-cit 1-23 by mouth ity of nayan acid 00:00: in the [place] 500-334 00 morning Medical mg/5 mL and 15 mL Branch solution in the evening. loperamide 2021-03 Yes [id number] 2mg Take 1 U nivers 2 mg 1-23 capsule by ity of capsule 00:00: mouth [place] 00 every 4 Medical (four) Branch hours. metoprolol 2021-03 Yes [id number] 25mg Take 1 U nivers tartrate 25 1-23 tablet by ity of mg tablet 00:00: [facility] the Medical morning Branch and 1 tablet in the evening. furosemide 2021-03 Yes [id number] 40mg Take 1 U nivers 40 mg 1-23 tablet by ity of tablet 00:00: mouth in [place] 00 the Medical morning. Branch ergocalcife 2021-03 Yes [id number] Take 1 [facility] rol, 1-23 capsule by ity of vitamin d2, 00:00: mouth [place] 1,250 mcg 00 weekly. Medical (50,000 Branch unit) capsule FLUoxetine 2021-03 Yes [id number] 60mg Take 3 U nivers 20 mg 1-23 capsules ity of capsule 00:00: by mouth [place] 00 in the Medical morning. Branch atorvastati 2021-03 Yes [id number] 80mg Take 1 [facility] n 80 mg 1-23 tablet by ity of tablet 00:00: mouth at [place] 00 bedtime. Medical Branch simethicone 2021-03 Yes [id number] 80mg Take 1 [facility] 80 mg 1-23 tablet by ity of chewable 00:00: mouth in [place] tablet 00 the Medical morning Branch and 1 tablet at noon and 1 tablet in the evening. Take with meals. amLODIPine 2021-03 Yes [id number] 10mg Take 1 [facility] 10 mg 1-23 tablet by ity of tablet 00:00: mouth in [place] 00 the Medical morning. Branch tamsulosin 2021-03 Yes [id number] .4mg Take 1 [facility] (FLOMAX) 1-23 capsule by ity o f 0.4 mg 24 00:00: mouth in [facility] s hr capsule 00 the Medical morning. Branch psyllium 2021-03 Yes [id number] 1{packe Take 1 [facility] husk 3.4 1-23 t} Packet by ity of gram oral 00:00: mouth in [facility] s powder 00 the Medical packet morning Branch and 1 Packet at noon and 1 Packet in the evening. diphenoxyla 2021-03 Yes [id number] 1{tbl} Take 1 [facility] te-atropine 1-23 tablet by ity of 2.5-0.025 00:00: mouth [place] mg tablet 00 every 6 Medical (six) Branch hours. glipiZIDE 5 2021-03 Yes [id number] TAKE 1 [facility] mg tablet 1-23 TABLET BY ity o f 00:00: MOUTH [place] 00 TWICE Medical DAILY Branch BEFORE BREAKFAST AND BEFORE SUPPER fenofibrate 2021-03 Yes [id number] 134mg Take 1 [facility] micronized 1-23 capsule by ity of 134 mg 00:00: mouth in [place] capsule 00 the Medical morning. Branch sodium 2021-03 Yes [id number] 15mL Take 15 mL U nivers citrate-cit 1-23 by mouth ity of nayan acid 00:00: in the [place] 500-334 00 morning Medical mg/5 mL and 15 mL Branch solution in the evening. loperamide 2021-03 Yes [id number] 2mg Take 1 U nivers 2 mg 1-23 capsule by ity of capsule 00:00: mouth [place] 00 every 4 Medical (four) Branch hours. metoprolol 2021-03 Yes [id number] 25mg Take 1 U nivers tartrate 25 1-23 tablet by ity of mg tablet 00:00: mouth [place] 00 the Medical morning Branch and 1 tablet in the evening. furosemide 2021-03 Yes [id number] 40mg Take 1 U nivers 40 mg 1-23 tablet by ity of tablet 00:00: mouth in [place] 00 the Medical morning. Branch ergocalcife 2021-03 Yes [id number] Take 1 [facility] rol, 1-23 capsule by ity of vitamin d2, 00:00: mouth [place] 1,250 mcg 00 weekly. Medical (50,000 Branch unit) capsule FLUoxetine 2021-03 Yes [id number] 60mg Take 3 U nivers 20 mg 1-23 capsules ity of capsule 00:00: by mouth [place] 00 in the Medical morning. Branch atorvastati 2021-03 Yes [id number] 80mg Take 1 [facility] n 80 mg 1-23 tablet by ity of tablet 00:00: mouth at [place] 00 bedtime. Medical Branch simethicone 2021-03 Yes [id number] 80mg Take 1 [facility] 80 mg 1-23 tablet by ity of chewable 00:00: mouth in [place] tablet 00 the Medical morning Branch and 1 tablet at noon and 1 tablet in the evening. Take with meals. amLODIPine 2021-03 Yes [id number] 10mg Take 1 [facility] 10 mg 1-23 tablet by ity of tablet 00:00: mouth in [place] 00 the Medical morning. Branch tamsulosin 2021-03 Yes [id number] .4mg Take 1 [facility] (FLOMAX) 1-23 capsule by ity o f 0.4 mg 24 00:00: mouth in [facility] s hr capsule 00 the Medical morning. Branch psyllium 2021-03 Yes [id number] 1{packe Take 1 [facility] husk 3.4 1-23 t} Packet by ity of gram oral 00:00: mouth in [place] powder 00 the Medical packet morning Branch and 1 Packet at noon and 1 Packet in the evening. diphenoxyla 2021-03 Yes [id number] 1{tbl} Take 1 [facility] te-atropine 1-23 tablet by ity of 2.5-0.025 00:00: mouth [place] mg tablet 00 every 6 Medical (six) Branch hours. glipiZIDE 5 2021-03 Yes [id number] TAKE 1 [facility] mg tablet 1-23 TABLET BY ity o f 00:00: MOUTH [place] 00 TWICE Medical DAILY Branch BEFORE BREAKFAST AND BEFORE SUPPER fenofibrate 2021-03 Yes [id number] 134mg Take 1 [facility] micronized 1-23 capsule by ity of 134 mg 00:00: mouth in [place] capsule 00 the Medical morning. Branch sodium 2021-03 Yes [id number] 15mL Take 15 mL U nivers citrate-cit 1-23 by mouth ity of nayan acid 00:00: in the [place] 500-334 00 morning Medical mg/5 mL and 15 mL Branch solution in the evening. loperamide 2021-03 Yes [id number] 2mg Take 1 U nivers 2 mg 1-23 capsule by ity of capsule 00:00: mouth [place] 00 every 4 Medical (four) Branch hours. metoprolol 2021-03 Yes [id number] 25mg Take 1 U nivers tartrate 25 1-23 tablet by ity of mg tablet 00:00: mouth in [facility] 00 the Medical morning Branch and 1 tablet in the evening. furosemide 2021-03 Yes [id number] 40mg Take 1 U nivers 40 mg 1-23 tablet by ity of tablet 00:00: mouth in [place] 00 the Medical morning. Branch ergocalcife 2021-03 Yes [id number] 64471X Take 1 [facility] rol, 1-23 capsule by ity of vitamin d2, 00:00: mouth [place] 1,250 mcg 00 weekly. Medical (50,000 Branch unit) capsule FLUoxetine 2021-03 Yes [id number] 60mg Take 3 U nivers 20 mg 1-23 capsules ity of capsule 00:00: by mouth [place] 00 in the Medical morning. Branch atorvastati 2021-03 Yes [id number] 80mg Take 1 [facility] n 80 mg 1-23 tablet by ity of tablet 00:00: mouth at [place] 00 bedtime. Medical Branch simethicone 2021-03 Yes [id number] 80mg Take 1 [facility] 80 mg 1-23 tablet by ity of chewable 00:00: mouth in [place] tablet 00 the Medical morning Branch and 1 tablet at noon and 1 tablet in the evening. Take with meals. amLODIPine 2021-03 Yes [id number] 10mg Take 1 [facility] 10 mg 1-23 tablet by ity of tablet 00:00: mouth in [place] 00 the Medical morning. Branch tamsulosin 2021-03 Yes [id number] .4mg Take 1 [facility] (FLOMAX) 1-23 capsule by ity o f 0.4 mg 24 00:00: mouth in [place] hr capsule 00 the Medical morning. Branch psyllium 2021-03 Yes [id number] 1{packe Take 1 [facility] husk 3.4 1-23 t} Packet by ity of gram oral 00:00: mouth in [place] powder 00 the Medical packet morning Branch and 1 Packet at noon and 1 Packet in the evening. diphenoxyla 2021-03 Yes [id number] 1{tbl} Take 1 [facility] te-atropine 1-23 tablet by ity of 2.5-0.025 00:00: mouth [place] mg tablet 00 every 6 Medical (six) Branch hours. glipiZIDE 5 2021-03 Yes [id number] TAKE 1 [facility] mg tablet 1-23 TABLET BY ity o f 00:00: MOUTH [place] 00 TWICE Medical DAILY Branch BEFORE BREAKFAST AND BEFORE SUPPER fenofibrate 2021-03 Yes [id number] 134mg Take 1 [facility] micronized 1-23 capsule by ity of 134 mg 00:00: mouth in [place] capsule 00 the Medical morning. Branch sodium 2021-03 Yes [id number] 15mL Take 15 mL U nivers citrate-cit 1-23 by mouth ity of nayan acid 00:00: in the [place] 500-334 00 morning Medical mg/5 mL and 15 mL Branch solution in the evening. loperamide 2021-03 Yes [id number] 2mg Take 1 U nivers 2 mg 1-23 capsule by ity of capsule 00:00: mouth [place] 00 every 4 Medical (four) Branch hours. metoprolol 2021-03 Yes [id number] 25mg Take 1 U nivers tartrate 25 1-23 tablet by ity of mg tablet 00:00: mouth in [place] 00 the Medical morning Branch and 1 tablet in the evening. furosemide 2021-03 Yes [id number] 40mg Take 1 U nivers 40 mg 1-23 tablet by ity of tablet 00:00: mouth in [place] 00 the Medical morning. Branch ergocalcife 2021-03 Yes [id number] 02524O Take 1 [facility] rol, 1-23 capsule by ity of vitamin d2, 00:00: mouth [place] 1,250 mcg 00 weekly. Medical (50,000 Branch unit) capsule FLUoxetine 2021-03 Yes [id number] 60mg Take 3 U nivers 20 mg 1-23 capsules ity of capsule 00:00: by mouth [place] 00 in the Medical morning. Branch atorvastati 2021-03 Yes [id number] 80mg Take 1 [facility] n 80 mg 1-23 tablet by ity of tablet 00:00: mouth at [place] 00 bedtime. Medical Branch simethicone 2021-03 Yes [id number] 80mg Take 1 [facility] 80 mg 1-23 tablet by ity of chewable 00:00: mouth in [place] tablet 00 the Medical morning Branch and 1 tablet at noon and 1 tablet in the evening. Take with meals. amLODIPine 2021-03 Yes [id number] 10mg Take 1 [facility] 10 mg 1-23 tablet by ity of tablet 00:00: mouth in [place] 00 the Medical morning. Branch tamsulosin 2021-03 Yes [id number] .4mg Take 1 [facility] (FLOMAX) 1-23 capsule by ity o f 0.4 mg 24 00:00: mouth in [facility] s hr capsule 00 the Medical morning. Branch psyllium 2021-03 Yes [id number] 1{packe Take 1 [facility] husk 3.4 1-23 t} Packet by ity of gram oral 00:00: mouth in [facility] s powder 00 the Medical packet morning Branch and 1 Packet at noon and 1 Packet in the evening. diphenoxyla 2021-03 Yes [id number] 1{tbl} Take 1 [facility] te-atropine 1-23 tablet by ity of 2.5-0.025 00:00: mouth [place] mg tablet 00 every 6 Medical (six) Branch hours. glipiZIDE 5 2021-03 Yes [id number] TAKE 1 [facility] mg tablet 1-23 TABLET BY ity o f 00:00: MOUTH [place] 00 TWICE Medical DAILY Branch BEFORE BREAKFAST AND BEFORE SUPPER fenofibrate 2021-03 Yes [id number] 134mg Take 1 [facility] micronized 1-23 capsule by ity of 134 mg 00:00: mouth in [place] capsule 00 the Medical morning. Branch sodium 2021-03 Yes [id number] 15mL Take 15 mL U nivers citrate-cit 1-23 by mouth ity of nayan acid 00:00: in the [place] [address] [place] [address] morning Medical mg/5 mL and 15 mL Branch solution in the evening. loperamide 2021-03 Yes [id number] 2mg Take 1 U nivers 2 mg 1-23 capsule by ity of capsule 00:00: mouth [place] 00 every 4 Medical (four) Branch hours. metoprolol 2021-03 Yes [id number] 25mg Take 1 U nivers tartrate 25 1-23 tablet by [facility]y of mg tablet 00:00: mouth [place] 00 the Medical morning Branch and 1 tablet in the evening. furosemide 2021-03 Yes [id number] 40mg Take 1 U nivers 40 mg 1-23 tablet by ity of tablet 00:00: mouth in [place] 00 the Medical morning. Branch ergocalcife 2021-03 Yes [id number] Take 1 [facility] rol, 1-23 capsule by ity of vitamin d2, 00:00: mouth [place] 1,250 mcg 00 weekly. Medical (50,000 Branch unit) capsule FLUoxetine 2021-03 Yes [id number] 60mg Take 3 U nivers 20 mg 1-23 capsules ity of capsule 00:00: by mouth [place] 00 in the Medical morning. Branch atorvastati 2021-03 Yes [id number] 80mg Take 1 [facility] n 80 mg 1-23 tablet by ity of tablet 00:00: mouth at [place] 00 bedtime. Medical Branch simethicone 2021-03 Yes [id number] 80mg Take 1 [facility] 80 mg 1-23 tablet by ity of chewable 00:00: mouth in [place] tablet 00 the Medical morning Branch and 1 tablet at noon and 1 tablet in the evening. Take with meals. amLODIPine 2021-03 Yes [id number] 10mg Take 1 [facility] 10 mg 1-23 tablet by ity of tablet 00:00: mouth in [place] 00 the morning. Branch tamsulosin 2021-03 Yes [id number] .4mg Take 1 [facility] (FLOMAX) 1-23 capsule by ity o f 0.4 mg 24 00:00: mouth in [facility] s hr capsule 00 the Medical morning. Branch psyllium 2021-03 Yes [id number] 1{packe Take 1 [facility] husk 3.4 1-23 t} Packet by [facility] gram oral 00:00: [place] powder 00 the Medical packet morning Branch and 1 Packet at noon and 1 Packet in the evening. diphenoxyla 2021-03 Yes [id number] 1{tbl} Take 1 [facility] te-atropine 1-23 tablet by ity of 2.5-0.025 00:00: mouth [place] mg tablet 00 every 6 Medical (six) Branch hours. glipiZIDE 5 2021-03 Yes [id number] TAKE 1 [facility] mg tablet 1-23 TABLET BY ity o f 00:00: MOUTH [place] 00 TWICE Medical DAILY Branch BEFORE BREAKFAST AND BEFORE SUPPER fenofibrate 2021-03 Yes [id number] 134mg Take 1 [facility] micronized 1-23 capsule by ity of 134 mg 00:00: mouth in [place] capsule 00 the Medical morning. Branch sodium 2021-03 Yes [id number] 15mL Take 15 mL [facility] nivers citrate-cit 1-23 by mouth ity of nayan acid 00:00: in the [place] 500-334 00 morning Medical mg/5 mL and 15 mL Branch solution in the evening. loperamide 2021-03 Yes [id number] 2mg Take 1 [facility] nivers 2 mg 1-23 capsule by ity of capsule 00:00: mouth [place] 00 every 4 Medical (four) Branch hours. metoprolol 2021-03 Yes [id number] 25mg Take 1 [facility] nivers tartrate 25 1-23 tablet by [facility] mg tablet 00:00: [facility] Branch and 1 tablet in the evening. furosemide 2021-03 Yes [id number] 40mg Take 1 [facility] nivers 40 mg 1-23 tablet by ity of tablet 00:00: mouth in [place] 00 the Medical morning. Branch ergocalcife 2021-03 Yes [id number] 41325S Take 1 [facility] rol, 1-23 capsule by ity of vitamin d2, 00:00: mouth [place] 1,250 mcg 00 weekly. Medical (50,000 Branch unit) capsule FLUoxetine 2021-03 Yes [id number] 60mg Take 3 [facility] nivers 20 mg 1-23 capsules ity of capsule 00:00: by mouth [place] 00 in the Medical morning. Branch atorvastati 2021-03 Yes [id number] 80mg Take 1 [facility] n 80 mg 1-23 tablet by ity of tablet 00:00: mouth at [place] 00 bedtime. Medical Branch simethicone 2021-03 Yes [id number] 80mg Take 1 [facility] 80 mg 1-23 tablet by ity of chewable 00:00: mouth in [place] tablet 00 the Medical morning Branch and 1 tablet at noon and 1 tablet in the evening. Take with meals. amLODIPine 2021-03 Yes [id number] 10mg Take 1 [facility] 10 mg 1-23 tablet by ity of tablet 00:00: mouth in [place] 00 the Medical morning. Branch tamsulosin 2021-03 Yes [id number] .4mg Take 1 [facility] (FLOMAX) 1-23 capsule by ity o f 0.4 mg 24 00:00: mouth in [facility] hr capsule 00 the Medical morning. Branch psyllium 2021-03 Yes [id number] 1{packe Take 1 [facility] husk 3.4 1-23 t} Packet by ity of gram oral 00:00: mouth in [facility] powder 00 the Medical packet morning Branch and 1 Packet at noon and 1 Packet in the evening. diphenoxyla 2021-03 Yes [id number] 1{tbl} Take 1 [facility] te-atropine 1-23 tablet by ity of 2.5-0.025 00:00: mouth [place] mg tablet 00 every 6 Medical (six) Branch hours. glipiZIDE 5 2021-03 Yes [id number] TAKE 1 [facility] mg tablet 1-23 TABLET BY ity o f 00:00: MOUTH [place] 00 TWICE Medical DAILY Branch BEFORE BREAKFAST AND BEFORE SUPPER fenofibrate 2021-03 Yes [id number] 134mg Take 1 [facility] micronized 1-23 capsule by ity of 134 mg 00:00: mouth in [place] capsule 00 the Medical morning. Branch sodium 2021-03 Yes [id number] 15mL Take 15 mL [facility] nivers citrate-cit 1-23 by mouth ity of nayan acid 00:00: in the [place] 500-334 morning Medical mg/5 mL and 15 mL Branch solution in the evening. loperamide 2021-03 Yes [id number] 2mg Take 1 [facility] nivers 2 mg 1-23 capsule by ity of capsule 00:00: mouth [place] 00 every 4 Medical (four) Branch hours. metoprolol 2021-03 Yes [id number] 25mg Take 1 [facility] nivers tartrate 25 1-23 tablet by ity of mg tablet 00:00: mouth in [facility] 00 the Medical morning Branch and 1 tablet in the evening. furosemide 2021-03 Yes [id number] 40mg Take 1 [facility] nivers 40 mg 1-23 tablet by ity of tablet 00:00: mouth in [place] 00 the Medical morning. Branch ergocalcife 2021-03 Yes [id number] 09854Z Take 1 [facility] rol, 1-23 capsule by ity of vitamin d2, 00:00: mouth [place] 1,250 mcg 00 weekly. Medical (50,000 Branch unit) capsule FLUoxetine 2021-03 Yes [id number] 60mg Take 3 [facility] nivers 20 mg 1-23 capsules ity of capsule 00:00: by mouth [place] 00 in the Medical morning. Branch atorvastati 2021-03 Yes [id number] 80mg Take 1 [facility] n 80 mg 1-23 tablet by ity of tablet 00:00: mouth at [place] 00 bedtime. Medical Branch simethicone 2021-03 Yes [id number] 80mg Take 1 [facility] 80 mg 1-23 tablet by ity of chewable 00:00: mouth in [place] tablet 00 the Medical morning Branch and 1 tablet at noon and 1 tablet in the evening. Take with meals. amLODIPine 2021-03 Yes [id number] 10mg Take 1 [facility] 10 mg 1-23 tablet by ity of tablet 00:00: mouth in [place] 00 the Medical morning. Branch tamsulosin 2021-03 Yes [id number] .4mg Take 1 [facility] (FLOMAX) 1-23 capsule by ity o f 0.4 mg 24 00:00: mouth [place] hr capsule 00 the Medical morning. Branch psyllium 2021-03 Yes [id number] 1{packe Take 1 [facility] husk 3.4 1-23 t} Packet by it[facility] of gram oral 00:00: mouth [place] powder 00 the Medical packet morning Branch and 1 Packet at noon and 1 Packet in the evening. diphenoxyla 2021-03 Yes [id number] 1{tbl} Take 1 [facility] te-atropine 1-23 tablet by ity of 2.5-0.025 00:00: mouth [place] mg tablet 00 every 6 Medical (six) Branch hours. glipiZIDE 5 2021-03 Yes [id number] TAKE 1 [facility] mg tablet 1-23 TABLET BY ity o f 00:00: MOUTH [place] 00 TWICE Medical DAILY Branch BEFORE BREAKFAST AND BEFORE SUPPER fenofibrate 2021-03 Yes [id number] 134mg Take 1 [facility] micronized 1-23 capsule by ity of 134 mg 00:00: mouth in [place] capsule 00 the Medical morning. Branch sodium 2021-03 Yes [id number] 15mL Take 15 mL U nivers citrate-cit 1-23 by mouth ity of nayan acid 00:00: in the [place] 500-334 00 morning Medical mg/5 mL and 15 mL Branch solution in the evening. loperamide 2021-03 Yes [id number] 2mg Take 1 [facility] nivers 2 mg 1-23 capsule by ity of capsule 00:00: mouth [place] 00 every 4 Medical (four) Branch hours. metoprolol 2021-03 Yes [id number] 25mg Take 1 U nivers tartrate 25 1-23 tablet by ity of mg tablet 00:00: mouth in [facility] 00 the Medical morning Branch and 1 tablet in the evening. furosemide 2021-03 Yes [id number] 40mg Take 1 [facility] nivers 40 mg 1-23 tablet by ity of tablet 00:00: mouth in [place] 00 the Medical morning. Branch ergocalcife 2021-03 Yes [id number] Take 1 [facility] rol, 1-23 capsule by ity of vitamin d2, 00:00: mouth [place] 1,250 mcg 00 weekly. Medical (50,000 Branch unit) capsule FLUoxetine 2021-03 Yes [id number] 60mg Take 3 [facility] nivers 20 mg 1-23 capsules ity of capsule 00:00: by mouth [place] 00 in the Medical morning. Branch atorvastati 2021-03 Yes [id number] 80mg Take 1 [facility] n 80 mg 1-23 tablet by ity of tablet 00:00: mouth at [place] 00 bedtime. Medical Branch simethicone 2021-03 Yes [id number] 80mg Take 1 [facility] 80 mg 1-23 tablet by ity of chewable 00:00: mouth in [place] tablet 00 the Medical morning Branch and 1 tablet at noon and 1 tablet in the evening. Take with meals. amLODIPine 2021-03 Yes [id number] 10mg Take 1 [facility] 10 mg 1-23 tablet by ity of tablet 00:00: mouth in [place] 00 the Medical morning. Branch tamsulosin 2021-03 Yes [id number] .4mg Take 1 [facility] (FLOMAX) 1-23 capsule by ity o f 0.4 mg 24 00:00: mouth in [facility] s hr capsule 00 the Medical morning. Branch psyllium 2021-03 Yes [id number] 1{packe Take 1 [facility] husk 3.4 1-23 t} Packet by ity of gram oral 00:00: mouth [place] powder 00 the Medical packet morning Branch and 1 Packet at noon and 1 Packet in the evening. diphenoxyla 2021-03 Yes [id number] 1{tbl} Take 1 [facility] te-atropine 1-23 tablet by ity of 2.5-0.025 00:00: mouth [place] mg tablet 00 every 6 Medical (six) Branch hours. glipiZIDE 5 2021-03 Yes [id number] TAKE 1 [facility] mg tablet 1-23 TABLET BY ity o f 00:00: MOUTH [place] 00 TWICE Medical DAILY Branch BEFORE BREAKFAST AND BEFORE SUPPER fenofibrate 2021-03 Yes [id number] 134mg Take 1 [facility] micronized 1-23 capsule by ity of 134 mg 00:00: mouth in [place] capsule 00 the Medical morning. Branch sodium 2021-03 Yes [id number] 15mL Take 15 mL U nivers citrate-cit 1-23 by mouth ity of nayan acid 00:00: in the [place] 500-334 00 morning Medical mg/5 mL and 15 mL Branch solution in the evening. loperamide 2021-03 Yes [id number] 2mg Take 1 [facility] nivers 2 mg 1-23 capsule by ity of capsule 00:00: mouth [place] 00 every 4 Medical (four) Branch hours. metoprolol 2021-03 Yes [id number] 25mg Take 1 [facility] nivers tartrate 25 1-23 tablet by ity of mg tablet 00:00: [facility] 00 the Medical morning Branch and 1 tablet in the evening. furosemide 2021-03 Yes [id number] 40mg Take 1 [facility] nivers 40 mg 1-23 tablet by ity of tablet 00:00: mouth in [place] 00 the Medical morning. Branch ergocalcife 2021-03 Yes [id number] Take 1 [facility] rol, 1-23 capsule by ity of vitamin d2, 00:00: mouth [place] 1,250 mcg 00 weekly. Medical (50,000 Branch unit) capsule FLUoxetine 2021-03 Yes [id number] 60mg Take 3 [facility] nivers 20 mg 1-23 capsules ity of capsule 00:00: by mouth [place] 00 in the Medical morning. Branch atorvastati 2021-03 Yes [id number] 80mg Take 1 [facility] n 80 mg 1-23 tablet by ity of tablet 00:00: mouth at [place] 00 bedtime. Medical Branch simethicone 2021-03 Yes [id number] 80mg Take 1 [facility] 80 mg 1-23 tablet by ity of chewable 00:00: mouth in [place] tablet 00 the Medical morning Branch and 1 tablet at noon and 1 tablet in the evening. Take with meals. amLODIPine 2021-03 Yes [id number] 10mg Take 1 [facility] 10 mg 1-23 tablet by ity of tablet 00:00: mouth in [place] 00 the Medical morning. Branch tamsulosin 2021-03 Yes [id number] .4mg Take 1 [facility] (FLOMAX) 1-23 capsule by ity o f 0.4 mg 24 00:00: mouth in [facility] s hr capsule 00 the Medical morning. Branch psyllium 2021-03 Yes [id number] 1{packe Take 1 [facility] husk 3.4 1-23 t} Packet by ity of gram oral 00:00: mouth in [facility] s powder 00 the Medical packet morning Branch and 1 Packet at noon and 1 Packet in the evening. diphenoxyla 2021-03 Yes [id number] 1{tbl} Take 1 [facility] te-atropine 1-23 tablet by ity of 2.5-0.025 00:00: mouth [place] mg tablet 00 every 6 Medical (six) Branch hours. glipiZIDE 5 2021-03 Yes [id number] TAKE 1 [facility] mg tablet 1-23 TABLET BY ity o f 00:00: MOUTH [place] 00 TWICE Medical DAILY Branch BEFORE BREAKFAST AND BEFORE SUPPER fenofibrate 2021-03 Yes [id number] 134mg Take 1 [facility] micronized 1-23 capsule by ity of 134 mg 00:00: mouth in [place] capsule 00 the Medical morning. Branch sodium 2021-03 Yes [id number] 15mL Take 15 mL U nivers citrate-cit 1-23 by mouth ity of nayan acid 00:00: in the [place] 500-334 00 morning Medical mg/5 mL and 15 mL Branch solution in the evening. loperamide 2021-03 Yes [id number] 2mg Take 1 [facility] nivers 2 mg 1-23 capsule by ity of capsule 00:00: mouth [place] 00 every 4 Medical (four) Branch hours. metoprolol 2021-03 Yes [id number] 25mg Take 1 [facility] nivers tartrate 25 1-23 tablet by [facility]y of mg tablet 00:00: mouth [place] 00 the Medical morning Branch and 1 tablet in the evening. furosemide 2021-03 Yes [id number] 40mg Take 1 [facility] nivers 40 mg 1-23 tablet by ity of tablet 00:00: mouth in [place] 00 the Medical morning. Branch ergocalcife 2021-03 Yes [id number] Take 1 [facility] rol, 1-23 capsule by ity of vitamin d2, 00:00: mouth [place] 1,250 mcg 00 weekly. Medical (50,000 Branch unit) capsule FLUoxetine 2021-03 Yes [id number] 60mg Take 3 U nivers 20 mg 1-23 capsules ity of capsule 00:00: by mouth [place] 00 in the Medical morning. Branch atorvastati 2021-03 Yes [id number] 80mg Take 1 [facility] n 80 mg 1-23 tablet by ity of tablet 00:00: mouth at [place] 00 bedtime. Medical Branch simethicone 2021-03 Yes [id number] 80mg Take 1 [facility] 80 mg 1-23 tablet by ity of chewable 00:00: mouth in [place] tablet 00 the Medical morning Branch and 1 tablet at noon and 1 tablet in the evening. Take with meals. amLODIPine 2021-03 Yes [id number] 10mg Take 1 [facility] 10 mg 1-23 tablet by ity of tablet 00:00: mouth in [place] 00 the Medical morning. Branch tamsulosin 2021-03 Yes [id number] .4mg Take 1 [facility] (FLOMAX) 1-23 capsule by ity o f 0.4 mg 24 00:00: mouth in [place] hr capsule 00 the Medical morning. Branch psyllium 2021-03 Yes [id number] 1{packe Take 1 [facility] husk 3.4 1-23 t} Packet by [facility] of gram oral 00:00: mouth [place] powder 00 the Medical packet morning Branch and 1 Packet at noon and 1 Packet in the evening. diphenoxyla 2021-03 Yes [id number] 1{tbl} Take 1 [facility] te-atropine 1-23 tablet by ity of 2.5-0.025 00:00: mouth [place] mg tablet 00 every 6 Medical (six) Branch hours. glipiZIDE 5 2021-03 Yes [id number] TAKE 1 [facility] mg tablet 1-23 TABLET BY ity o f 00:00: MOUTH [place] 00 TWICE Medical DAILY Branch BEFORE BREAKFAST AND BEFORE SUPPER fenofibrate 2021-03 Yes [id number] 134mg Take 1 [facility] micronized 1-23 capsule by ity of 134 mg 00:00: mouth in [place] capsule 00 the Medical morning. Branch sodium 2021-03 Yes [id number] 15mL Take 15 mL U nivers citrate-cit 1-23 by mouth ity of nayan acid 00:00: in the [place] 500-334 00 morning Medical mg/5 mL and 15 mL Branch solution in the evening. loperamide 2021-03 Yes [id number] 2mg Take 1 U nivers 2 mg 1-23 capsule by ity of capsule 00:00: mouth [place] 00 every 4 Medical (four) Branch hours. metoprolol 2021-03 Yes [id number] 25mg Take 1 U nivers tartrate 25 1-23 tablet by ity of mg tablet 00:00: mouth in [facility] 00 the Medical morning Branch and 1 tablet in the evening. furosemide 2021-03 Yes [id number] 40mg Take 1 U nivers 40 mg 1-23 tablet by ity of tablet 00:00: mouth in [place] 00 the Medical morning. Branch ergocalcife 2021-03 Yes [id number] 11886M Take 1 [facility] rol, 1-23 capsule by ity of vitamin d2, 00:00: mouth [place] 1,250 mcg 00 weekly. Medical (50,000 Branch unit) capsule FLUoxetine 2021-03 Yes [id number] 60mg Take 3 U nivers 20 mg 1-23 capsules ity of capsule 00:00: by mouth [place] 00 in the Medical morning. Branch atorvastati 2021-03 Yes [id number] 80mg Take 1 [facility] n 80 mg 1-23 tablet by ity of tablet 00:00: mouth at [place] 00 bedtime. Medical Branch simethicone 2021-03 Yes [id number] 80mg Take 1 [facility] 80 mg 1-23 tablet by ity of chewable 00:00: mouth in [place] tablet 00 the Medical morning Branch and 1 tablet at noon and 1 tablet in the evening. Take with meals. amLODIPine 2021-03 Yes [id number] 10mg Take 1 [facility] 10 mg 1-23 tablet by ity of tablet 00:00: mouth in [place] 00 the Medical morning. Branch tamsulosin 2021-03 Yes [id number] .4mg Take 1 [facility] (FLOMAX) 1-23 capsule by ity o f 0.4 mg 24 00:00: mouth in [place] hr capsule 00 the Medical morning. Branch psyllium 2021-03 Yes [id number] 1{packe Take 1 [facility] husk 3.4 1-23 t} Packet by ity of gram oral 00:00: mouth in [place] powder 00 the Medical packet morning Branch and 1 Packet at noon and 1 Packet in the evening. diphenoxyla 2021-03 Yes [id number] 1{tbl} Take 1 [facility] te-atropine 1-23 tablet by ity of 2.5-0.025 00:00: mouth [place] mg tablet 00 every 6 Medical (six) Branch hours. glipiZIDE 5 2021-03 Yes [id number] TAKE 1 [facility] mg tablet 1-23 TABLET BY ity o f 00:00: MOUTH [place] 00 TWICE Medical DAILY Branch BEFORE BREAKFAST AND BEFORE SUPPER fenofibrate 2021-03 Yes [id number] 134mg Take 1 [facility] micronized 1-23 capsule by ity of 134 mg 00:00: mouth in [place] capsule 00 the Medical morning. Branch sodium 2021-03 Yes [id number] 15mL Take 15 mL U nivers citrate-cit 1-23 by mouth ity of nayan acid 00:00: in the [place] 500-334 00 morning Medical mg/5 mL and 15 mL Branch solution in the evening. loperamide 2021-03 Yes [id number] 2mg Take 1 U nivers 2 mg 1-23 capsule by ity of capsule 00:00: mouth [place] 00 every 4 Medical (four) Branch hours. metoprolol 2021-03 Yes [id number] 25mg Take 1 U nivers tartrate 25 1-23 tablet by ity of mg tablet 00:00: mouth in [place] 00 the Medical morning Branch and 1 tablet in the evening. furosemide 2021-03 Yes [id number] 40mg Take 1 U nivers 40 mg 1-23 tablet by ity of tablet 00:00: mouth in [place] 00 the Medical morning. Branch ergocalcife 2021-03 Yes [id number] Take 1 [facility] rol, 1-23 capsule by ity of vitamin d2, 00:00: mouth [place] 1,250 mcg 00 weekly. Medical (50,000 Branch unit) capsule FLUoxetine 2021-03 Yes [id number] 60mg Take 3 U nivers 20 mg 1-23 capsules ity of capsule 00:00: by mouth [place] 00 in the Medical morning. Branch atorvastati 2021-03 Yes [id number] 80mg Take 1 [facility] n 80 mg 1-23 tablet by ity of tablet 00:00: mouth at [place] [address] bedtime. Medical Branch simethicone 2021-03 Yes [id number] 80mg Take 1 [facility] 80 mg 1-23 tablet by ity of chewable 00:00: mouth in [place] tablet 00 the Medical morning Branch and 1 tablet at noon and 1 tablet in the evening. Take with meals. amLODIPine 2021-03 Yes [id number] 10mg Take 1 [facility] 10 mg 1-23 tablet by ity of tablet 00:00: mouth in [place] 00 the Medical morning. Branch tamsulosin 2021-03 Yes [id number] .4mg Take 1 [facility] (FLOMAX) 1-23 capsule by ity o f 0.4 mg 24 00:00: mouth in [facility] s hr capsule 00 the Medical morning. Branch psyllium 2021-03 Yes [id number] 1{packe Take 1 [facility] husk 3.4 1-23 t} Packet by ity of gram oral 00:00: mouth [facility] powder 00 the Medical packet morning Branch and 1 Packet at noon and 1 Packet in the evening. diphenoxyla 2021-03 Yes [id number] 1{tbl} Take 1 [facility] te-atropine 1-23 tablet by ity of 2.5-0.025 00:00: mouth [place] mg tablet 00 every 6 Medical (six) Branch hours. glipiZIDE 5 2021-03 Yes [id number] TAKE 1 [facility] mg tablet 1-23 TABLET BY ity o f 00:00: MOUTH [place] [address] TWICE Medical DAILY Branch BEFORE BREAKFAST AND BEFORE SUPPER fenofibrate 2021-03 Yes [id number] 134mg Take 1 [facility] micronized 1-23 capsule by ity of 134 mg 00:00: mouth in [place] capsule 00 the Medical morning. Branch sodium 2021-03 Yes [id number] 15mL Take 15 mL U nivers citrate-cit 1-23 by mouth ity of nayan acid 00:00: in the [place] 500-334 00 morning Medical mg/5 mL and 15 mL Branch solution in the evening. loperamide 2021-03 Yes [id number] 2mg Take 1 U nivers 2 mg 1-23 capsule by ity of capsule 00:00: mouth [place] 00 every 4 Medical (four) Branch hours. metoprolol 2021-03 Yes [id number] 25mg Take 1 U nivers tartrate 25 1-23 tablet by [facility]y of mg tablet 00:00: mouth [place] 00 the Medical morning Branch and 1 tablet in the evening. furosemide 2021-03 Yes [id number] 40mg Take 1 U nivers 40 mg 1-23 tablet by ity of tablet 00:00: mouth in [place] 00 the Medical morning. Branch ergocalcife 2021-03 Yes [id number] Take 1 [facility] rol, 1-23 capsule by ity of vitamin d2, 00:00: mouth [place] 1,250 mcg 00 weekly. Medical (50,000 Branch unit) capsule FLUoxetine 2021-03 Yes [id number] 60mg Take 3 U nivers 20 mg 1-23 capsules ity of capsule 00:00: by mouth [place] 00 in the Medical morning. Branch atorvastati 2021-03 Yes [id number] 80mg Take 1 [facility] n 80 mg 1-23 tablet by ity of tablet 00:00: mouth at [place] 00 bedtime. Medical Branch simethicone 2021-03 Yes [id number] 80mg Take 1 [facility] 80 mg 1-23 tablet by ity of chewable 00:00: mouth in [place] tablet 00 the Medical morning Branch and 1 tablet at noon and 1 tablet in the evening. Take with meals. amLODIPine 2021-03 Yes [id number] 10mg Take 1 [facility] 10 mg 1-23 tablet by ity of tablet 00:00: mouth in [place] 00 the Medical morning. Branch tamsulosin 2021-03 Yes [id number] .4mg Take 1 [facility] (FLOMAX) 1-23 capsule by ity o f 0.4 mg 24 00:00: mouth in [facility] s hr capsule 00 the Medical morning. Branch psyllium 2021-03 Yes [id number] 1{packe Take 1 [facility] husk 3.4 1-23 t} Packet by ity of gram oral 00:00: mouth in [place] powder 00 the Medical packet morning Branch and 1 Packet at noon and 1 Packet in the evening. diphenoxyla 2021-03 Yes [id number] 1{tbl} Take 1 [facility] te-atropine 1-23 tablet by ity of 2.5-0.025 00:00: mouth [place] mg tablet 00 every 6 Medical (six) Branch hours. glipiZIDE 5 2021-03 Yes [id number] TAKE 1 [facility] mg tablet 1-23 TABLET BY ity o f 00:00: MOUTH [place] 00 TWICE Medical DAILY Branch BEFORE BREAKFAST AND BEFORE SUPPER fenofibrate 2021-03 Yes [id number] 134mg Take 1 [facility] micronized 1-23 capsule by ity of 134 mg 00:00: mouth in [place] capsule 00 the Medical morning. Branch sodium 2021-03 Yes [id number] 15mL Take 15 mL U nivers citrate-cit 1-23 by mouth ity of nayan acid 00:00: in the [place] 500-334 00 morning Medical mg/5 mL and 15 mL Branch solution in the evening. loperamide 2021-03 Yes [id number] 2mg Take 1 U nivers 2 mg 1-23 capsule by ity of capsule 00:00: mouth [place] 00 every 4 Medical (four) Branch hours. metoprolol 2021-03 Yes [id number] 25mg Take 1 U nivers tartrate 25 1-23 tablet by ity of mg tablet 00:00: mouth [facility] 00 the Medical morning Branch and 1 tablet in the evening. furosemide 2021-03 Yes [id number] 40mg Take 1 U nivers 40 mg 1-23 tablet by ity of tablet 00:00: mouth in [place] 00 the Medical morning. Branch ergocalcife 2021-03 Yes [id number] Take 1 [facility] rol, 1-23 capsule by ity of vitamin d2, 00:00: mouth [place] 1,250 mcg 00 weekly. Medical (50,000 Branch unit) capsule FLUoxetine 2021-03 Yes [id number] 60mg Take 3 U nivers 20 mg 1-23 capsules ity of capsule 00:00: by mouth [place] 00 in the Medical morning. Branch atorvastati 2021-03 Yes [id number] 80mg Take 1 [facility] n 80 mg 1-23 tablet by ity of tablet 00:00: mouth at [place] 00 bedtime. Medical Branch simethicone 2021-03 Yes [id number] 80mg Take 1 [facility] 80 mg 1-23 tablet by ity of chewable 00:00: mouth in [place] tablet 00 the Medical morning Branch and 1 tablet at noon and 1 tablet in the evening. Take with meals. amLODIPine 2021-03 Yes [id number] 10mg Take 1 [facility] 10 mg 1-23 tablet by ity of tablet 00:00: mouth in [place] 00 the Medical morning. Branch tamsulosin 2021-03 Yes [id number] .4mg Take 1 [facility] (FLOMAX) 1-23 capsule by ity o f 0.4 mg 24 00:00: mouth in [facility] hr capsule 00 the Medical morning. Branch psyllium 2021-03 Yes [id number] 1{packe Take 1 [facility] husk 3.4 1-23 t} Packet by ity of gram oral 00:00: mouth in [facility] s powder 00 the Medical packet morning Branch and 1 Packet at noon and 1 Packet in the evening. diphenoxyla 2021-03 Yes [id number] 1{tbl} Take 1 [facility] te-atropine 1-23 tablet by ity of 2.5-0.025 00:00: mouth [place] mg tablet 00 every 6 Medical (six) Branch hours. glipiZIDE 5 2021-03 Yes [id number] TAKE 1 [facility] mg tablet 1-23 TABLET BY ity o f 00:00: MOUTH [place] 00 TWICE Medical DAILY Branch BEFORE BREAKFAST AND BEFORE SUPPER fenofibrate 2021-03 Yes [id number] 134mg Take 1 [facility] micronized 1-23 capsule by ity of 134 mg 00:00: mouth in [place] capsule 00 the Medical morning. Branch sodium 2021-03 Yes [id number] 15mL Take 15 mL U nivers citrate-cit 1-23 by mouth ity of nayan acid 00:00: in the [place] 500-334 morning Medical mg/5 mL and 15 mL Branch solution in the evening. loperamide 2021-03 Yes [id number] 2mg Take 1 U nivers 2 mg 1-23 capsule by ity of capsule 00:00: mouth [place] 00 every 4 Medical (four) Branch hours. metoprolol 2021-03 Yes [id number] 25mg Take 1 U nivers tartrate 25 1-23 tablet by ity of mg tablet 00:00: mouth in [facility] 00 the Medical morning Branch and 1 tablet in the evening. furosemide 2021-03 Yes [id number] 40mg Take 1 U nivers 40 mg 1-23 tablet by ity of tablet 00:00: mouth in [place] 00 the Medical morning. Branch ergocalcife 2021-03 Yes [id number] 24856M Take 1 [facility] rol, 1-23 capsule by ity of vitamin d2, 00:00: mouth [place] 1,250 mcg 00 weekly. Medical (50,000 Branch unit) capsule FLUoxetine 2021-03 Yes [id number] 60mg Take 3 U nivers 20 mg 1-23 capsules ity of capsule 00:00: by mouth [place] 00 in the Medical morning. Branch atorvastati 2021-03 Yes [id number] 80mg Take 1 [facility] n 80 mg 1-23 tablet by ity of tablet 00:00: mouth at [place] 00 bedtime. Medical Branch simethicone 2021-03 Yes [id number] 80mg Take 1 [facility] 80 mg 1-23 tablet by ity of chewable 00:00: mouth in [place] tablet 00 the Medical morning Branch and 1 tablet at noon and 1 tablet in the evening. Take with meals. amLODIPine 2021-03 Yes [id number] 10mg Take 1 [facility] 10 mg 1-23 tablet by ity of tablet 00:00: mouth in [place] 00 the Medical morning. Branch tamsulosin 2021-03 Yes [id number] .4mg Take 1 [facility] (FLOMAX) 1-23 capsule by ity o f 0.4 mg 24 00:00: mouth in [place] hr capsule 00 the Medical morning. Branch psyllium 2021-03 Yes [id number] 1{packe Take 1 [facility] husk 3.4 1-23 t} Packet by [facility] gram oral 00:00: [place] powder 00 the Medical packet morning Branch and 1 Packet at noon and 1 Packet in the evening. diphenoxyla 2021-03 Yes [id number] 1{tbl} Take 1 [facility] te-atropine 1-23 tablet by ity of 2.5-0.025 00:00: mouth [place] mg tablet 00 every 6 Medical (six) Branch hours. glipiZIDE 5 2021-03 Yes [id number] TAKE 1 [facility] mg tablet 1-23 TABLET BY ity o f 00:00: MOUTH [place] 00 TWICE Medical DAILY Branch BEFORE BREAKFAST AND BEFORE SUPPER fenofibrate 2021-03 Yes [id number] 134mg Take 1 [facility] micronized 1-23 capsule by ity of 134 mg 00:00: mouth in [place] capsule 00 the Medical morning. Branch sodium 2021-03 Yes [id number] 15mL Take 15 mL [facility] nivers citrate-cit 1-23 by mouth ity of nayan acid 00:00: in the [place] 500-334 00 morning Medical mg/5 mL and 15 mL Branch solution in the evening. loperamide 2021-03 Yes [id number] 2mg Take 1 U nivers 2 mg 1-23 capsule by ity of capsule 00:00: mouth [place] 00 every 4 Medical (four) Branch hours. metoprolol 2021-03 Yes [id number] 25mg Take 1 U nivers tartrate 25 1-23 tablet by ity of mg tablet 00:00: mouth in [facility] 00 the Medical morning Branch and 1 tablet in the evening. furosemide 2021-03 Yes [id number] 40mg Take 1 [facility] nivers 40 mg 1-23 tablet by ity of tablet 00:00: mouth in [place] 00 the Medical morning. Branch ergocalcife 2021-03 Yes [id number] Take 1 [facility] rol, 1-23 capsule by ity of vitamin d2, 00:00: mouth [place] 1,250 mcg 00 weekly. Medical (50,000 Branch unit) capsule FLUoxetine 2021-03 Yes [id number] 60mg Take 3 [facility] nivers 20 mg 1-23 capsules ity of capsule 00:00: by mouth [place] 00 in the Medical morning. Branch atorvastati 2021-03 Yes [id number] 80mg Take 1 [facility] n 80 mg 1-23 tablet by ity of tablet 00:00: mouth at [place] 00 bedtime. Medical Branch simethicone 2021-03 Yes [id number] 80mg Take 1 [facility] 80 mg 1-23 tablet by ity of chewable 00:00: mouth in [place] tablet 00 the Medical morning Branch and 1 tablet at noon and 1 tablet in the evening. Take with meals. amLODIPine 2021-03 Yes [id number] 10mg Take 1 [facility] 10 mg 1-23 tablet by ity of tablet 00:00: mouth in [place] 00 the Medical morning. Branch tamsulosin 2021-03 Yes [id number] .4mg Take 1 [facility] (FLOMAX) 1-23 capsule by ity o f 0.4 mg 24 00:00: mouth in [facility] s hr capsule 00 the Medical morning. Branch psyllium 2021-03 Yes [id number] 1{packe Take 1 [facility] husk 3.4 1-23 t} Packet by [facility] of gram oral 00:00: mouth [place] powder 00 the Medical packet morning Branch and 1 Packet at noon and 1 Packet in the evening. diphenoxyla 2021-03 Yes [id number] 1{tbl} Take 1 [facility] te-atropine 1-23 tablet by ity of 2.5-0.025 00:00: mouth [place] mg tablet 00 every 6 Medical (six) Branch hours. glipiZIDE 5 2021-03 Yes [id number] TAKE 1 [facility] mg tablet 1-23 TABLET BY ity o f 00:00: MOUTH [place] 00 TWICE Medical DAILY Branch BEFORE BREAKFAST AND BEFORE SUPPER fenofibrate 2021-03 Yes [id number] 134mg Take 1 [facility] micronized 1-23 capsule by ity of 134 mg 00:00: mouth in [place] capsule 00 the Medical morning. Branch sodium 2021-03 Yes [id number] 15mL Take 15 mL U nivers citrate-cit 1-23 by mouth ity of nayan acid 00:00: in the [place] 500-334 00 morning Medical mg/5 mL and 15 mL Branch solution in the evening. loperamide 2021-03 Yes [id number] 2mg Take 1 [facility] nivers 2 mg 1-23 capsule by ity of capsule 00:00: mouth [place] 00 every 4 Medical (four) Branch hours. metoprolol 2021-03 Yes [id number] 25mg Take 1 [facility] nivers tartrate 25 1-23 tablet by ity of mg tablet 00:00: [facility] morning Branch and 1 tablet in the evening. furosemide 2021-03 Yes [id number] 40mg Take 1 [facility] nivers 40 mg 1-23 tablet by ity of tablet 00:00: mouth in [place] 00 the Medical morning. Branch ergocalcife 2021-03 Yes [id number] Take 1 [facility] rol, 1-23 capsule by ity of vitamin d2, 00:00: mouth [place] 1,250 mcg 00 weekly. Medical (50,000 Branch unit) capsule FLUoxetine 2021-03 Yes [id number] 60mg Take 3 [facility] nivers 20 mg 1-23 capsules ity of capsule 00:00: by mouth [place] 00 in the Medical morning. Branch atorvastati 2021-03 Yes [id number] 80mg Take 1 [facility] n 80 mg 1-23 tablet by ity of tablet 00:00: mouth at [place] 00 bedtime. Medical Branch simethicone 2021-03 Yes [id number] 80mg Take 1 [facility] 80 mg 1-23 tablet by ity of chewable 00:00: mouth in [place] tablet 00 the Medical morning Branch and 1 tablet at noon and 1 tablet in the evening. Take with meals. amLODIPine 2021-03 Yes [id number] 10mg Take 1 [facility] 10 mg 1-23 tablet by ity of tablet 00:00: mouth in [place] 00 the Medical morning. Branch tamsulosin 2021-03 Yes [id number] .4mg Take 1 [facility] (FLOMAX) 1-23 capsule by ity o f 0.4 mg 24 00:00: mouth in [facility] s hr capsule 00 the Medical morning. Branch psyllium 2021-03 Yes [id number] 1{packe Take 1 [facility] husk 3.4 1-23 t} Packet by ity of gram oral 00:00: mouth in [facility] s powder 00 the Medical packet morning Branch and 1 Packet at noon and 1 Packet in the evening. diphenoxyla 2021-03 Yes [id number] 1{tbl} Take 1 [facility] te-atropine 1-23 tablet by ity of 2.5-0.025 00:00: mouth [place] mg tablet 00 every 6 Medical (six) Branch hours. glipiZIDE 5 2021-03 Yes [id number] TAKE 1 [facility] mg tablet 1-23 TABLET BY ity o f 00:00: MOUTH [place] 00 TWICE Medical DAILY Branch BEFORE BREAKFAST AND BEFORE SUPPER fenofibrate 2021-03 Yes [id number] 134mg Take 1 [facility] micronized 1-23 capsule by ity of 134 mg 00:00: mouth in [place] capsule 00 the Medical morning. Branch sodium 2021-03 Yes [id number] 15mL Take 15 mL U nivers citrate-cit 1-23 by mouth ity of nayan acid 00:00: in the [place] 500-334 00 morning Medical mg/5 mL and 15 mL Branch solution in the evening. loperamide 2021-03 Yes [id number] 2mg Take 1 [facility] nivers 2 mg 1-23 capsule by ity of capsule 00:00: mouth [place] 00 every 4 Medical (four) Branch hours. metoprolol 2021-03 Yes [id number] 25mg Take 1 U nivers tartrate 25 1-23 tablet by [facility] of mg tablet 00:00: mouth [place] 00 the Medical morning Branch and 1 tablet in the evening. furosemide 2021-03 Yes [id number] 40mg Take 1 [facility] nivers 40 mg 1-23 tablet by ity of tablet 00:00: mouth in [place] 00 the Medical morning. Branch ergocalcife 2021-03 Yes [id number] Take 1 [facility] rol, 1-23 capsule by ity of vitamin d2, 00:00: mouth [place] 1,250 mcg 00 weekly. Medical (50,000 Branch unit) capsule FLUoxetine 2021-03 Yes [id number] 60mg Take 3 U nivers 20 mg 1-23 capsules ity of capsule 00:00: by mouth [place] 00 in the Medical morning. Branch atorvastati 2021-03 Yes [id number] 80mg Take 1 [facility] n 80 mg 1-23 tablet by ity of tablet 00:00: mouth at [place] 00 bedtime. Medical Branch simethicone 2021-03 Yes [id number] 80mg Take 1 [facility] 80 mg 1-23 tablet by ity of chewable 00:00: mouth in [place] tablet 00 the Medical morning Branch and 1 tablet at noon and 1 tablet in the evening. Take with meals. amLODIPine 2021-03 Yes [id number] 10mg Take 1 [facility] 10 mg 1-23 tablet by ity of tablet 00:00: mouth in [place] 00 the Medical morning. Branch tamsulosin 2021-03 Yes [id number] .4mg Take 1 [facility] (FLOMAX) 1-23 capsule by ity o f 0.4 mg 24 00:00: mouth [place] hr capsule 00 the Medical morning. Branch psyllium 2021-03 Yes [id number] 1{packe Take 1 [facility] husk 3.4 1-23 t} Packet by it[facility] of gram oral 00:00: mouth [place] powder 00 the Medical packet morning Branch and 1 Packet at noon and 1 Packet in the evening. diphenoxyla 2021-03 Yes [id number] 1{tbl} Take 1 [facility] te-atropine 1-23 tablet by ity of 2.5-0.025 00:00: mouth [place] mg tablet 00 every 6 Medical (six) Branch hours. glipiZIDE 5 2021-03 Yes [id number] TAKE 1 [facility] mg tablet 1-23 TABLET BY ity o f 00:00: MOUTH [place] 00 TWICE Medical DAILY Branch BEFORE BREAKFAST AND BEFORE SUPPER fenofibrate 2021-03 Yes [id number] 134mg Take 1 [facility] micronized 1-23 capsule by ity of 134 mg 00:00: mouth in [place] capsule 00 the Medical morning. Branch sodium 2021-03 Yes [id number] 15mL Take 15 mL U nivers citrate-cit 1-23 by mouth ity of nayan acid 00:00: in the [place] 500-334 00 morning Medical mg/5 mL and 15 mL Branch solution in the evening. loperamide 2021-03 Yes [id number] 2mg Take 1 U nivers 2 mg 1-23 capsule by ity of capsule 00:00: mouth [place] 00 every 4 Medical (four) Branch hours. metoprolol 2021-03 Yes [id number] 25mg Take 1 U nivers tartrate 25 1-23 tablet by ity of mg tablet 00:00: mouth in [facility] s 00 the Medical morning Branch and 1 tablet in the evening. furosemide 2021-03 Yes [id number] 40mg Take 1 U nivers 40 mg 1-23 tablet by ity of tablet 00:00: mouth in [place] 00 the Medical morning. Branch ergocalcife 2021-03 Yes [id number] Take 1 [facility] rol, 1-23 capsule by ity of vitamin d2, 00:00: mouth [place] 1,250 mcg 00 weekly. Medical (50,000 Branch unit) capsule FLUoxetine 2021-03 Yes [id number] 60mg Take 3 U nivers 20 mg 1-23 capsules ity of capsule 00:00: by mouth [place] 00 in the Medical morning. Branch atorvastati 2021-03 Yes [id number] 80mg Take 1 [facility] n 80 mg 1-23 tablet by ity of tablet 00:00: mouth at [place] 00 bedtime. Medical Branch simethicone 2021-03 Yes [id number] 80mg Take 1 [facility] 80 mg 1-23 tablet by ity of chewable 00:00: mouth in [place] tablet 00 the Medical morning Branch and 1 tablet at noon and 1 tablet in the evening. Take with meals. amLODIPine 2021-03 Yes [id number] 10mg Take 1 [facility] 10 mg 1-23 tablet by ity of tablet 00:00: mouth in [place] 00 the Medical morning. Branch tamsulosin 2021-03 Yes [id number] .4mg Take 1 [facility] (FLOMAX) 1-23 capsule by ity o f 0.4 mg 24 00:00: mouth in [facility] s hr capsule 00 the Medical morning. Branch psyllium 2021-03 Yes [id number] 1{packe Take 1 [facility] husk 3.4 1-23 t} Packet by ity of gram oral 00:00: mouth in [facility] s powder 00 the Medical packet morning Branch and 1 Packet at noon and 1 Packet in the evening. diphenoxyla 2021-03 Yes [id number] 1{tbl} Take 1 [facility] te-atropine 1-23 tablet by ity of 2.5-0.025 00:00: mouth [place] mg tablet 00 every 6 Medical (six) Branch hours. glipiZIDE 5 2021-03 Yes [id number] TAKE 1 [facility] mg tablet 1-23 TABLET BY ity o f 00:00: MOUTH [place] 00 TWICE Medical DAILY Branch BEFORE BREAKFAST AND BEFORE SUPPER fenofibrate 2021-03 Yes [id number] 134mg Take 1 [facility] micronized 1-23 capsule by ity of 134 mg 00:00: mouth in [place] capsule 00 the Medical morning. Branch sodium 2021-03 Yes [id number] 15mL Take 15 mL U nivers citrate-cit 1-23 by mouth ity of nayan acid 00:00: in the [place] 500-334 00 morning Medical mg/5 mL and 15 mL Branch solution in the evening. loperamide 2021-03 Yes [id number] 2mg Take 1 U nivers 2 mg 1-23 capsule by ity of capsule 00:00: mouth [place] 00 every 4 Medical (four) Branch hours. metoprolol 2021-03 Yes [id number] 25mg Take 1 U nivers tartrate 25 1-23 tablet by ity of mg tablet 00:00: mouth in [facility] 00 the Medical morning Branch and 1 tablet in the evening. furosemide 2021-03 Yes [id number] 40mg Take 1 U nivers 40 mg 1-23 tablet by ity of tablet 00:00: mouth in [place] 00 the Medical morning. Branch ergocalcife 2021-03 Yes [id number] Take 1 [facility] rol, 1-23 capsule by ity of vitamin d2, 00:00: mouth [place] 1,250 mcg 00 weekly. Medical (50,000 Branch unit) capsule FLUoxetine 2021-03 Yes [id number] 60mg Take 3 U nivers 20 mg 1-23 capsules ity of capsule 00:00: by mouth [place] 00 in the Medical morning. Branch atorvastati 2021-03 Yes [id number] 80mg Take 1 [facility] n 80 mg 1-23 tablet by ity of tablet 00:00: mouth at [place] 00 bedtime. Medical Branch simethicone 2021-03 Yes [id number] 80mg Take 1 [facility] 80 mg 1-23 tablet by ity of chewable 00:00: mouth in [place] tablet 00 the Medical morning Branch and 1 tablet at noon and 1 tablet in the evening. Take with meals. amLODIPine 2021-03 Yes [id number] 10mg Take 1 [facility] 10 mg 1-23 tablet by ity of tablet 00:00: mouth in [place] 00 the Medical morning. Branch tamsulosin 2021-03 Yes [id number] .4mg Take 1 [facility] (FLOMAX) 1-23 capsule by ity o f 0.4 mg 24 00:00: mouth in [facility] s hr capsule 00 the Medical morning. Branch psyllium 2021-03 Yes [id number] 1{packe Take 1 [facility] husk 3.4 1-23 t} Packet by ity of gram oral 00:00: [facility] powder 00 the Medical packet morning Branch and 1 Packet at noon and 1 Packet in the evening. diphenoxyla 2021-03 Yes [id number] 1{tbl} Take 1 [facility] te-atropine 1-23 tablet by ity of 2.5-0.025 00:00: mouth [place] mg tablet 00 every 6 Medical (six) Branch hours. glipiZIDE 5 2021-03 Yes [id number] TAKE 1 [facility] mg tablet 1-23 TABLET BY ity o f 00:00: MOUTH [place] 00 TWICE Medical DAILY Branch BEFORE BREAKFAST AND BEFORE SUPPER fenofibrate 2021-03 Yes [id number] 134mg Take 1 [facility] micronized 1-23 capsule by ity of 134 mg 00:00: mouth in [place] capsule 00 the Medical morning. Branch sodium 2021-03 Yes [id number] 15mL Take 15 mL U nivers citrate-cit 1-23 by mouth ity of nayan acid 00:00: in the [place] 500-334 00 morning Medical mg/5 mL and 15 mL Branch solution in the evening. loperamide 2021-03 Yes [id number] 2mg Take 1 U nivers 2 mg 1-23 capsule by ity of capsule 00:00: mouth [place] 00 every 4 Medical (four) Branch hours. metoprolol 2021-03 Yes [id number] 25mg Take 1 U nivers tartrate 25 1-23 tablet by [facility]y of mg tablet 00:00: mouth [place] 00 the Medical morning Branch and 1 tablet in the evening. furosemide 2021-03 Yes [id number] 40mg Take 1 U nivers 40 mg 1-23 tablet by ity of tablet 00:00: mouth in [place] 00 the Medical morning. Branch ergocalcife 2021-03 Yes [id number] Take 1 [facility] rol, 1-23 capsule by ity of vitamin d2, 00:00: mouth [place] 1,250 mcg 00 weekly. Medical (50,000 Branch unit) capsule FLUoxetine 2021-03 Yes [id number] 60mg Take 3 U nivers 20 mg 1-23 capsules ity of capsule 00:00: by mouth [place] 00 in the Medical morning. Branch atorvastati 2021-03 Yes [id number] 80mg Take 1 [facility] n 80 mg 1-23 tablet by ity of tablet 00:00: mouth at [place] 00 bedtime. Medical Branch simethicone 2021-03 Yes [id number] 80mg Take 1 [facility] 80 mg 1-23 tablet by ity of chewable 00:00: mouth in [place] tablet 00 the Medical morning Branch and 1 tablet at noon and 1 tablet in the evening. Take with meals. amLODIPine 2021-03 Yes [id number] 10mg Take 1 [facility] 10 mg 1-23 tablet by ity of tablet 00:00: mouth in [place] 00 the Medical morning. Branch tamsulosin 2021-03 Yes [id number] .4mg Take 1 [facility] (FLOMAX) 1-23 capsule by ity o f 0.4 mg 24 00:00: mouth in [facility] hr capsule 00 the Medical morning. Branch psyllium 2021-03 Yes [id number] 1{packe Take 1 [facility] husk 3.4 1-23 t} Packet by ity of gram oral 00:00: mouth in [place] powder 00 the Medical packet morning Branch and 1 Packet at noon and 1 Packet in the evening. diphenoxyla 2021-03 Yes [id number] 1{tbl} Take 1 [facility] te-atropine 1-23 tablet by ity of 2.5-0.025 00:00: mouth [place] mg tablet 00 every 6 Medical (six) Branch hours. glipiZIDE 5 2021-03 Yes [id number] TAKE 1 [facility] mg tablet 1-23 TABLET BY ity o f 00:00: MOUTH [place] 00 TWICE Medical DAILY Branch BEFORE BREAKFAST AND BEFORE SUPPER fenofibrate 2021-03 Yes [id number] 134mg Take 1 [facility] micronized 1-23 capsule by ity of 134 mg 00:00: mouth in [place] capsule 00 the Medical morning. Branch sodium 2021-03 Yes [id number] 15mL Take 15 mL U nivers citrate-cit 1-23 by mouth ity of nayan acid 00:00: in the [place] 500-334 00 morning Medical mg/5 mL and 15 mL Branch solution in the evening. loperamide 2021-03 Yes [id number] 2mg Take 1 U nivers 2 mg 1-23 capsule by ity of capsule 00:00: mouth [place] 00 every 4 Medical (four) Branch hours. metoprolol 2021-03 Yes [id number] 25mg Take 1 U nivers tartrate 25 1-23 tablet by ity of mg tablet 00:00: mouth [facility] 00 the Medical morning Branch and 1 tablet in the evening. furosemide 2021-03 Yes [id number] 40mg Take 1 U nivers 40 mg 1-23 tablet by ity of tablet 00:00: mouth in [place] 00 the Medical morning. Branch ergocalcife 2021-03 Yes [id number] Take 1 [facility] rol, 1-23 capsule by ity of vitamin d2, 00:00: mouth [place] 1,250 mcg 00 weekly. Medical (50,000 Branch unit) capsule FLUoxetine 2021-03 Yes [id number] 60mg Take 3 U nivers 20 mg 1-23 capsules ity of capsule 00:00: by mouth [place] 00 in the Medical morning. Branch atorvastati 2021-03 Yes [id number] 80mg Take 1 [facility] n 80 mg 1-23 tablet by ity of tablet 00:00: mouth at [place] 00 bedtime. Medical Branch simethicone 2021-03 Yes [id number] 80mg Take 1 [facility] 80 mg 1-23 tablet by ity of chewable 00:00: mouth in [place] tablet 00 the Medical morning Branch and 1 tablet at noon and 1 tablet in the evening. Take with meals. ergocalcife 2021-03- Yes [id number] Take 1 [facility] rol, 03-13 capsule by ity of vitamin d2, 00:00: 05:59 mouth [place] 1,250 mcg 00 :00 weekly for Medi nani (50,000 7 doses. Branch unit) capsule ergocalcife 2021-03- Yes [id number] Take 1 [facility] rol, 03-13 capsule by ity of vitamin d2, 00:00: 05:59 mouth [place] 1,250 mcg 00 :00 weekly for Medi nani (50,000 7 doses. Branch unit) capsule ergocalcife 2021-03- Yes [id number] Take 1 [facility] rol, 03-13 capsule by ity of vitamin d2, 00:00: 05:59 mouth [place] 1,250 mcg 00 :00 weekly for Medi nani (50,000 7 doses. Branch unit) capsule ergocalcife 2021-03- Yes [id number] Take 1 [facility] rol, 03-13 capsule by ity of vitamin d2, 00:00: 05:59 mouth [place] 1,250 mcg 00 :00 weekly for Medi nani (50,000 7 doses. Branch unit) capsule ergocalcife 2021-03- Yes [id number] Take 1 [facility] rol, 03-13 capsule by ity of vitamin d2, 00:00: 05:59 mouth [place] 1,250 mcg 00 :00 weekly for Medi nani (50,000 7 doses. Branch unit) capsule ergocalcife 2021-03- Yes [id number] Take 1 [facility] rol, 03-13 capsule by ity of vitamin d2, 00:00: 05:59 mouth [place] 1,250 mcg 00 :00 weekly for Medi nani (50,000 7 doses. Branch unit) capsule ergocalcife 2021-03- Yes [id number] Take 1 [facility] rol, 03-13 capsule by ity of vitamin d2, 00:00: 05:59 mouth [place] 1,250 mcg 00 :00 weekly for Medi nani (50,000 7 doses. Branch unit) capsule ergocalcife 2021-03- Yes [id number] Take 1 [facility] rol, 03-13 capsule by ity of vitamin d2, 00:00: 05:59 mouth [place] 1,250 mcg 00 :00 weekly for Medi nani (50,000 7 doses. Branch unit) capsule ergocalcife 2021-03- Yes [id number] Take 1 [facility] rol, 03-13 capsule by ity of vitamin d2, 00:00: 05:59 mouth [place] 1,250 mcg 00 :00 weekly for Medi nani (50,000 7 doses. Branch unit) capsule ergocalcife 2021-03- Yes [id number] Take 1 [facility] rol, 03-13 capsule by ity of vitamin d2, 00:00: 05:59 mouth [place] 1,250 mcg 00 :00 weekly for Medi nani (50,000 7 doses. Branch unit) capsule ergocalcife 2021-03- No [id number] Take 1 [facility] rol, 03-13 capsule by ity of vitamin d2, 00:00: 00:00 mouth [place] 1,250 mcg 00 :00 weekly for Medi nani (50,000 7 doses. Branch unit) capsule ergocalcife 2021-03- No [id number] Take 1 [facility] rol, 03-13 capsule by ity of vitamin d2, 00:00: 00:00 mouth [place] 1,250 mcg 00 :00 weekly for Medi nani (50,000 7 doses. Branch unit) capsule ergocalcife 2021-03- No [id number] Take 1 [facility] rol, 03-13 capsule by ity of vitamin d2, 00:00: 00:00 mouth [place] 1,250 mcg 00 :00 weekly for Medi nani (50,000 7 doses. Branch unit) capsule ergocalcife 2021-03- No [id number] Take 1 [facility] rol, 03-13 capsule by ity of vitamin d2, 00:00: 00:00 mouth [place] 1,250 mcg 00 :00 weekly for Medi nani (50,000 7 doses. Branch unit) capsule fenofibrate 2021-03 Yes [id number] 134mg Take 1 [facility] micronized 1-03 capsule by ity of 134 mg 00:00: mouth in [place] capsule 00 the Medical morning. Branch furosemide 2021-03 Yes [id number] 40mg Take 1 U nivers 40 mg 1-03 tablet by ity of tablet 00:00: mouth in [place] 00 the Medical morning. Branch FLUoxetine 2021-03 Yes [id number] 60mg Take 3 U nivers 20 mg 1-03 capsules ity of capsule 00:00: by mouth [place] 00 in the Medical morning. Branch fenofibrate 2021-03 Yes [id number] 134mg Take 1 [facility] micronized 1-03 capsule by ity of 134 mg 00:00: mouth in [place] capsule 00 the Medical morning. Branch furosemide 2021-03 Yes [id number] 40mg Take 1 U nivers 40 mg 1-03 tablet by ity of tablet 00:00: mouth in [place] 00 the Medical morning. Branch FLUoxetine 2021-03 Yes [id number] 60mg Take 3 U nivers 20 mg 1-03 capsules ity of capsule 00:00: by mouth [place] 00 in the Medical morning. Branch fenofibrate 2021-03 Yes [id number] 134mg Take 1 [facility] micronized 1-03 capsule by ity of 134 mg 00:00: mouth in [place] capsule 00 the Medical morning. Branch furosemide 2021-03 Yes [id number] 40mg Take 1 U nivers 40 mg 1-03 tablet by ity of tablet 00:00: mouth in [place] 00 the Medical morning. Branch FLUoxetine 2021-03 Yes [id number] 60mg Take 3 U nivers 20 mg 1-03 capsules ity of capsule 00:00: by mouth [place] 00 in the Medical morning. Branch fenofibrate 2021-03 Yes [id number] 134mg Take 1 [facility] micronized 1-03 capsule by ity of 134 mg 00:00: mouth in [place] capsule 00 the Medical morning. Branch furosemide 2021-03 Yes [id number] 40mg Take 1 U nivers 40 mg 1-03 tablet by ity of tablet 00:00: mouth in [place] 00 the Medical morning. Branch FLUoxetine 2021-03 Yes [id number] 60mg Take 3 U nivers 20 mg 1-03 capsules ity of capsule 00:00: by mouth [place] 00 in the Medical morning. Branch fenofibrate 2021-03 Yes [id number] 134mg Take 1 [facility] micronized 1-03 capsule by ity of 134 mg 00:00: mouth in [place] capsule 00 the Medical morning. Branch furosemide 2021-03 Yes [id number] 40mg Take 1 U nivers 40 mg 1-03 tablet by ity of tablet 00:00: mouth in [place] 00 the Medical morning. Branch FLUoxetine 2021-03 Yes [id number] 60mg Take 3 U nivers 20 mg 1-03 capsules ity of capsule 00:00: by mouth [place] 00 in the Medical morning. Branch fenofibrate 2021-03 Yes [id number] 134mg Take 1 [facility] micronized 1-03 capsule by ity of 134 mg 00:00: mouth in [place] capsule 00 the Medical morning. Branch furosemide 2021-03 Yes [id number] 40mg Take 1 U nivers 40 mg 1-03 tablet by ity of tablet 00:00: mouth in [place] 00 the Medical morning. Branch FLUoxetine 2021-03 Yes [id number] 60mg Take 3 U nivers 20 mg 1-03 capsules ity of capsule 00:00: by mouth [place] 00 in the Medical morning. Branch fenofibrate 2021-03 Yes [id number] 134mg Take 1 [facility] micronized 1-03 capsule by ity of 134 mg 00:00: mouth in [place] capsule 00 the Medical morning. Branch furosemide 2021-03 Yes [id number] 40mg Take 1 U nivers 40 mg 1-03 tablet by ity of tablet 00:00: mouth in [place] 00 the Medical morning. Branch FLUoxetine 2021-03 Yes [id number] 60mg Take 3 U nivers 20 mg 1-03 capsules ity of capsule 00:00: by mouth [place] 00 in the Medical morning. Branch fenofibrate 2021-03 Yes [id number] 134mg Take 1 [facility] micronized 1-03 capsule by ity of 134 mg 00:00: mouth in [place] capsule 00 the Medical morning. Branch furosemide 2021-03 Yes [id number] 40mg Take 1 U nivers 40 mg 1-03 tablet by ity of tablet 00:00: mouth in [place] 00 the Medical morning. Branch FLUoxetine 2021-03 Yes [id number] 60mg Take 3 U nivers 20 mg 1-03 capsules ity of capsule 00:00: by mouth [place] 00 in the Medical morning. Branch fenofibrate 2021-03 Yes [id number] 134mg Take 1 [facility] micronized 1-03 capsule by ity of 134 mg 00:00: mouth in [place] capsule 00 the Medical morning. Branch furosemide 2021-03 Yes [id number] 40mg Take 1 U nivers 40 mg 1-03 tablet by ity of tablet 00:00: mouth in [place] 00 the Medical morning. Branch FLUoxetine 2021-03 Yes [id number] 60mg Take 3 U nivers 20 mg 1-03 capsules ity of capsule 00:00: by mouth [place] 00 in the Medical morning. Branch fenofibrate 2021-03 Yes [id number] 134mg Take 1 [facility] micronized 1-03 capsule by ity of 134 mg 00:00: mouth in [facility] 00 the Medical morning. Branch furosemide 2021-03 Yes [id number] 40mg Take 1 U nivers 40 mg 1-03 tablet by ity of tablet 00:00: mouth in [place] 00 the Medical morning. Branch FLUoxetine 2021-03 Yes [id number] 60mg Take 3 U nivers 20 mg 1-03 capsules ity of capsule 00:00: by mouth [place] 00 in the Medical morning. Branch tamsulosin 2021-03- Yes [id number] .4mg Take 1 [facility] (FLOMAX) 03-07 capsule by ity of 0.4 mg 24 00:00: 05:59 mouth in [place] as hr capsule 00 :00 the Medical morning Branch for 30 days. tamsulosin 2021-03- Yes [id number] .4mg Take 1 [facility] (FLOMAX) 03-07- capsule by ity of 0.4 mg 24 00:00: 05:59 mouth in [place] hr capsule 00 :00 the Medical morning Branch for 30 days. tamsulosin 2021-03- Yes [id number] .4mg Take 1 [facility] (FLOMAX) 03-07 capsule by ity of 0.4 mg 24 00:00: 05:59 mouth in [place] hr capsule 00 :00 the Medical morning Branch for 30 days. tamsulosin 2021-03- Yes [id number] .4mg Take 1 [facility] (FLOMAX) -05 14- capsule by ity of 0.4 mg 24 00:00: 05:59 mouth in [place] hr capsule 00 :00 the Medical morning Branch for 30 days. tamsulosin 2021-03- Yes [id number] .4mg Take 1 [facility] (FLOMAX) -05 14-04 capsule by ity of 0.4 mg 24 00:00: 05:59 mouth in [place] hr capsule 00 :00 the Medical morning Branch for 30 days. tamsulosin 2021-03- Yes [id number] .4mg Take 1 [facility] (FLOMAX) 03-07 capsule by ity of 0.4 mg 24 00:00: 05:59 mouth in [place] hr capsule 00 :00 the Medical morning Branch for 30 days. tamsulosin 2021-03- Yes [id number] .4mg Take 1 [facility] (FLOMAX) 03-07 capsule by ity of 0.4 mg 24 00:00: 05:59 mouth in [place] hr capsule 00 :00 the Medical morning Branch for 30 days. tamsulosin 2021-03- Yes [id number] .4mg Take 1 [facility] (FLOMAX) 03-07 capsule by ity of 0.4 mg 24 00:00: 05:59 mouth in [place] hr capsule 00 :00 the Medical morning Branch for 30 days. tamsulosin 2021-03- Yes [id number] .4mg Take 1 [facility] (FLOMAX) 03-07 capsule by ity of 0.4 mg 24 00:00: 05:59 mouth in [place] hr capsule 00 :00 the Medical morning Branch for 30 days. tamsulosin 2021-03- Yes [id number] .4mg Take 1 [facility] (FLOMAX) 03-07 capsule by ity of 0.4 mg 24 00:00: 05:59 mouth in [place] hr capsule 00 :00 the Medical morning Branch for 30 days. tamsulosin 2021-03- Yes [id number] .4mg Take 1 [facility] (FLOMAX) 03-07 capsule by ity of 0.4 mg 24 00:00: 05:59 mouth in [place] hr capsule 00 :00 the Medical morning Branch for 30 days. tamsulosin 2021-03- Yes [id number] .4mg Take 1 [facility] (FLOMAX) 03-07 capsule by ity of 0.4 mg 24 00:00: 05:59 mouth in [place] hr capsule 00 :00 the Medical morning Branch for 30 days. tamsulosin 2021-03- No [id number] .4mg Take 1 [facility] (FLOMAX) 03-07 capsule by ity of 0.4 mg 24 00:00: 05:59 mouth in [place] hr capsule 00 :00 the Medical morning Branch for 30 days. tamsulosin 2021-03- No [id number] .4mg Take 1 [facility] (FLOMAX) 03-07 capsule by ity of 0.4 mg 24 00:00: 05:59 mouth in [place] hr capsule 00 :00 the Medical morning Branch for 30 days. fenofibrate 2021-03- No [id number] 134mg Take 1 [facility] micronized 03-07 capsule by it y of 134 mg 00:00: 00:00 mouth in [place] capsule 00 :00 the Medical morning. Branch furosemide 2021-03- No [id number] 40mg Take 1 [facility] 40 mg 03-07 tablet by ity of tablet 00:00: 00:00 mouth in [place] 00 :00 the Medical morning. Branch FLUoxetine 2021-03- No [id number] 60mg Take 3 [facility] 20 mg 03-07 capsules ity of capsule 00:00: 00:00 by mouth [place] 00 :00 in the Medical morning. Branch fenofibrate 2021-03- No [id number] 134mg Take 1 [facility] micronized 03-07 capsule by it y of 134 mg 00:00: 00:00 mouth in [place] capsule 00 :00 the Medical morning. Branch furosemide 2021-03- No [id number] 40mg Take 1 [facility] 40 mg 03-07 tablet by ity of tablet 00:00: 00:00 mouth in [place] 00 :00 the Medical morning. Branch FLUoxetine 2021-03- No [id number] 60mg Take 3 [facility] 20 mg 03-07 capsules ity of capsule 00:00: 00:00 by mouth [place] 00 :00 in the Medical morning. Branch fenofibrate 2021-03- No [id number] 134mg Take 1 [facility] micronized 03-07 capsule by it y of 134 mg 00:00: 00:00 mouth in [place] capsule 00 :00 the Medical morning. Branch furosemide 2021-03- No [id number] 40mg Take 1 [facility] 40 mg 03-07 tablet by ity of tablet 00:00: 00:00 mouth in [place] 00 :00 the Medical morning. Branch FLUoxetine 2021-03- No [id number] 60mg Take 3 [facility] 20 mg 03-07 capsules ity of capsule 00:00: 00:00 by mouth [place] 00 :00 in the Medical morning. Branch fenofibrate 2021-03- No [id number] 134mg Take 1 [facility] micronized 03-07 capsule by it y of 134 mg 00:00: 00:00 mouth in [place] capsule 00 :00 the Medical morning. Branch furosemide 2021-03- No [id number] 40mg Take 1 [facility] 40 mg 03-07 tablet by ity of tablet 00:00: 00:00 mouth in [place] 00 :00 the Medical morning. Branch FLUoxetine 2021-03- No [id number] 60mg Take 3 [facility] 20 mg 03-07 capsules ity of capsule 00:00: 00:00 by mouth [place] 00 :00 in the Medical morning. Branch ergocalcife 2021-03 Yes [id number] 50,000 Un cecelia rol 1-02 Units, ity of (vitamin 14:00: Oral, [place] d2) 00 QWEEKLY, Medical (CALCIFEROL First dose Br anch ) capsule on Wed 50,000 01/04/22 at Units 0900, Until Discontinu ed, Routine HYDROcodone 2021-03 Yes 1{tbl} 1 tablet, [facility] -acetaminop 1-02 Oral, ity of hen (NORCO 03:07: Q6HPRN, [place] 5) 5-325 mg 43 Starting Medi nani tablet 1 on Sun Branch tablet 01/03/22 at 2207, Until Discontinu ed, Routine, Pain (scale 7-10) atorvastati 2021-03 Yes [id number] 80mg Take 1 [facility] n 80 mg 1-02 tablet by ity of tablet 00:00: mouth at [place] 00 bedtime. Medical Branch sodium 2021-03 Yes [id number] 15mL Take 15 mL U nivers citrate-cit 1-02 by mouth ity of nayan acid 00:00: in the [place] 500-334 00 morning Medical mg/5 mL and 15 mL Branch solution in the evening for 30 days loperamide 2021-03 Yes [id number] 2mg Take 1 U nivers 2 mg 1-02 capsule by ity of capsule 00:00: mouth [place] 00 every 4 Medical (four) Branch hours. atorvastati 2021-03 Yes [id number] 80mg Take 1 [facility] n 80 mg 1-02 tablet by ity of tablet 00:00: mouth at [place] 00 bedtime. Medical Branch sodium 2021-03 Yes [id number] 15mL Take 15 mL U nivers citrate-cit 1-02 by mouth ity of nayan acid 00:00: in the [place] [facility] 00 morning Medical mg/5 mL and 15 mL Branch solution in the evening for 30 days loperamide 2021-03 Yes [id number] 2mg Take 1 U nivers 2 mg 1-02 capsule by ity of capsule 00:00: mouth [place] 00 every 4 Medical (four) Branch hours. atorvastati 2021-03 Yes [id number] 80mg Take 1 [facility] n 80 mg 1-02 tablet by ity of tablet 00:00: mouth at [place] 00 bedtime. Medical Branch sodium 2021-03 Yes [id number] 15mL Take 15 mL U nivers citrate-cit 1-02 by mouth ity of nayan acid 00:00: in the [place] [facility] morning Medical mg/5 mL and 15 mL Branch solution in the evening for 30 days loperamide 2021-03 Yes [id number] 2mg Take 1 U nivers 2 mg 1-02 capsule by ity of capsule 00:00: mouth [place] 00 every 4 Medical (four) Branch hours. atorvastati 2021-03 Yes [id number] 80mg Take 1 [facility] n 80 mg 1-02 tablet by ity of tablet 00:00: mouth at [place] 00 bedtime. Medical Branch sodium 2021-03 Yes [id number] 15mL Take 15 mL U nivers citrate-cit 1-02 by mouth ity of nayan acid 00:00: in the [place] [facility] 00 morning Medical mg/5 mL and 15 mL Branch solution in the evening for 30 days loperamide 2021-03 Yes [id number] 2mg Take 1 U nivers 2 mg 1-02 capsule by ity of capsule 00:00: mouth [place] 00 every 4 Medical (four) Branch hours. atorvastati 2021-03 Yes [id number] 80mg Take 1 [facility] n 80 mg 1-02 tablet by ity of tablet 00:00: mouth at [place] 00 bedtime. Medical Branch sodium 2021-03 Yes [id number] 15mL Take 15 mL U nivers citrate-cit 1-02 by mouth ity of nayan acid 00:00: in the [place] [facility] 00 morning Medical mg/5 mL and 15 mL Branch solution in the evening for 30 days loperamide 2021-03 Yes [id number] 2mg Take 1 U nivers 2 mg 1-02 capsule by ity of capsule 00:00: mouth [place] 00 every 4 Medical (four) Branch hours. atorvastati 2021-03 Yes [id number] 80mg Take 1 [facility] n 80 mg 1-02 tablet by ity of tablet 00:00: mouth at [place] 00 bedtime. Medical Branch sodium 2021-03 Yes [id number] 15mL Take 15 mL U nivers citrate-cit 1-02 by mouth ity of nayan acid 00:00: in the [place] [facility] morning Medical mg/5 mL and 15 mL Branch solution in the evening for 30 days loperamide 2021-03 Yes [id number] 2mg Take 1 U nivers 2 mg 1-02 capsule by ity of capsule 00:00: mouth [place] 00 every 4 Medical (four) Branch hours. atorvastati 2021-03 Yes [id number] 80mg Take 1 [facility] n 80 mg 1-02 tablet by ity of tablet 00:00: mouth at [place] 00 bedtime. Medical Branch sodium 2021-03 Yes [id number] 15mL Take 15 mL U nivers citrate-cit 1-02 by mouth ity of nayan acid 00:00: in the [place] [facility] morning Medical mg/5 mL and 15 mL Branch solution in the evening for 30 days loperamide 2021-03 Yes [id number] 2mg Take 1 U nivers 2 mg 1-02 capsule by ity of capsule 00:00: mouth [place] 00 every 4 Medical (four) Branch hours. atorvastati 2021-03 Yes [id number] 80mg Take 1 [facility] n 80 mg 1-02 tablet by ity of tablet 00:00: mouth at [place] 00 bedtime. Medical Branch sodium 2021-03 Yes [id number] 15mL Take 15 mL U nivers citrate-cit 1-02 by mouth ity of nayan acid 00:00: in the [place] [facility] morning Medical mg/5 mL and 15 mL Branch solution in the evening for 30 days loperamide 2021-03 Yes [id number] 2mg Take 1 U nivers 2 mg 1-02 capsule by ity of capsule 00:00: mouth [place] 00 every 4 Medical (four) Branch hours. atorvastati 2021-03 Yes [id number] 80mg Take 1 [facility] n 80 mg 1-02 tablet by ity of tablet 00:00: mouth at [place] 00 bedtime. Medical Branch sodium 2021-03 Yes [id number] 15mL Take 15 mL U nivers citrate-cit 1-02 by mouth ity of nayan acid 00:00: in the [place] [facility] 00 morning Medical mg/5 mL and 15 mL Branch solution in the evening for 30 days loperamide 2021-03 Yes [id number] 2mg Take 1 U nivers 2 mg 1-02 capsule by ity of capsule 00:00: mouth [place] 00 every 4 Medical (four) Branch hours. atorvastati 2021-03 Yes [id number] 80mg Take 1 [facility] n 80 mg 1-02 tablet by ity of tablet 00:00: mouth at [place] 00 bedtime. Medical Branch sodium 2021-03 Yes [id number] 15mL Take 15 mL U nivers citrate-cit 1-02 by mouth ity of nayan acid 00:00: in the [place] [facility] 00 morning Medical mg/5 mL and 15 mL Branch solution in the evening for 30 days loperamide 2021-03 Yes [id number] 2mg Take 1 U nivers 2 mg 1-02 capsule by ity of capsule 00:00: mouth [place] 00 every 4 Medical (four) Branch hours. diphenoxyla 2021-03- Yes [id number] 1{tbl} Take 1 [facility] te-atropine 03-06 tablet by it y of 2.5-0.025 00:00: 05:59 mouth [place] mg tablet 00 :00 every 6 Medical (six) Branch hours for 30 days. simethicone 2021-03- Yes [id number] 80mg Take 1 [facility] 80 mg 03-06 tablet by ity of chewable 00:00: 05:59 mouth in [place] tablet 00 :00 the Medical morning Branch and 1 tablet at noon and 1 tablet in the evening. Take with meals. Do all this for 30 days. metoprolol 2021-03- Yes [id number] 25mg Take 1 [facility] tartrate 25 03-06 tablet by it y of mg tablet 00:00: 05:59 mouth in [place] as 00 :00 the Medical morning Branch and 1 tablet in the evening. Do all this for 30 days. amLODIPine 2021-03- Yes [id number] 10mg Take 1 [facility] 10 mg 03-06 tablet by ity of tablet 00:00: 05:59 mouth in [place] 00 :00 the Medical morning Branch for 30 days. psyllium 2021-03- Yes [id number] 1{packe Take 1 [facility] husk 3.4 03-06 t} Packet by ity o f gram oral 00:00: 05:59 mouth in [place] as powder 00 :00 the Medical packet morning Branch and 1 Packet at noon and 1 Packet in the evening. Do all this for 30 days. diphenoxyla 2021-03- Yes [id number] 1{tbl} Take 1 [facility] te-atropine 03-06 tablet by it y of 2.5-0.025 00:00: 05:59 mouth [place] mg tablet 00 :00 every 6 Medical (six) Branch hours for 30 days. simethicone 2021-03- Yes [id number] 80mg Take 1 [facility] 80 mg 03-06 tablet by ity of chewable 00:00: 05:59 mouth in [place] tablet 00 :00 the Medical morning Branch and 1 tablet at noon and 1 tablet in the evening. Take with meals. Do all this for 30 days. metoprolol 2021-03- Yes [id number] 25mg Take 1 [facility] tartrate 25 03-06 tablet by it y of mg tablet 00:00: 05:59 mouth in [place] as 00 :00 the Medical morning Branch and 1 tablet in the evening. Do all this for 30 days. amLODIPine 2021-03- Yes [id number] 10mg Take 1 [facility] 10 mg 03-06 tablet by ity of tablet 00:00: 05:59 mouth in [place] 00 :00 the Medical morning Branch for 30 days. psyllium 2021-03- Yes [id number] 1{packe Take 1 [facility] husk 3.4 03-06 t} Packet by ity o f gram oral 00:00: 05:59 mouth in [place] as powder 00 :00 the Medical packet morning Branch and 1 Packet at noon and 1 Packet in the evening. Do all this for 30 days. diphenoxyla 2021-03- Yes [id number] 1{tbl} Take 1 [facility] te-atropine 03-06 tablet by it y of 2.5-0.025 00:00: 05:59 mouth [place] mg tablet 00 :00 every 6 Medical (six) Branch hours for 30 days. simethicone 2021-03- Yes [id number] 80mg Take 1 [facility] 80 mg 03-06 tablet by ity of chewable 00:00: 05:59 mouth in [place] tablet 00 :00 the Medical morning Branch and 1 tablet at noon and 1 tablet in the evening. Take with meals. Do all this for 30 days. metoprolol 2021-03- Yes [id number] 25mg Take 1 [facility] tartrate 25 03-06 tablet by it y of mg tablet 00:00: 05:59 mouth in [place] as 00 :00 the Medical morning Branch and 1 tablet in the evening. Do all this for 30 days. amLODIPine 2021-03- Yes [id number] 10mg Take 1 [facility] 10 mg 03-06 tablet by ity of tablet 00:00: 05:59 mouth in [place] 00 :00 the Medical morning Branch for 30 days. psyllium 2021-03- Yes [id number] 1{packe Take 1 [facility] husk 3.4 03-06 t} Packet by ity o f gram oral 00:00: 05:59 mouth in [place] as powder 00 :00 the Medical packet morning Branch and 1 Packet at noon and 1 Packet in the evening. Do all this for 30 days. diphenoxyla 2021-03- Yes [id number] 1{tbl} Take 1 [facility] te-atropine 03-06 tablet by it y of 2.5-0.025 00:00: 05:59 mouth [place] mg tablet 00 :00 every 6 Medical (six) Branch hours for 30 days. simethicone 2021-03- Yes [id number] 80mg Take 1 [facility] 80 mg 03-06 tablet by ity of chewable 00:00: 05:59 mouth in [place] tablet 00 :00 the Medical morning Branch and 1 tablet at noon and 1 tablet in the evening. Take with meals. Do all this for 30 days. metoprolol 2021-03- Yes [id number] 25mg Take 1 [facility] tartrate 25 03-06 tablet by it y of mg tablet 00:00: 05:59 mouth in [place] as 00 :00 the Medical morning Branch and 1 tablet in the evening. Do all this for 30 days. amLODIPine 2021-03- Yes [id number] 10mg Take 1 [facility] 10 mg 03-06 tablet by ity of tablet 00:00: 05:59 mouth in [place] 00 :00 the Medical morning Branch for 30 days. psyllium 2021-03- Yes [id number] 1{packe Take 1 [facility] husk 3.4 03-06 t} Packet by ity o f gram oral 00:00: 05:59 mouth in [place] as powder 00 :00 the Medical packet morning Branch and 1 Packet at noon and 1 Packet in the evening. Do all this for 30 days. diphenoxyla 2021-03- Yes [id number] 1{tbl} Take 1 [facility] te-atropine 03-06 tablet by it y of 2.5-0.025 00:00: 05:59 mouth [place] mg tablet 00 :00 every 6 Medical (six) Branch hours for 30 days. simethicone 2021-03- Yes [id number] 80mg Take 1 [facility] 80 mg 03-06 tablet by ity of chewable 00:00: 05:59 mouth in [place] tablet 00 :00 the Medical morning Branch and 1 tablet at noon and 1 tablet in the evening. Take with meals. Do all this for 30 days. metoprolol 2021-03- Yes [id number] 25mg Take 1 [facility] tartrate 25 03-06 tablet by it y of mg tablet 00:00: 05:59 mouth in [place] as 00 :00 the Medical morning Branch and 1 tablet in the evening. Do all this for 30 days. amLODIPine 2021-03- Yes [id number] 10mg Take 1 [facility] 10 mg 03-06 tablet by ity of tablet 00:00: 05:59 mouth in [place] 00 :00 the Medical morning Branch for 30 days. psyllium 2021-03- Yes [id number] 1{packe Take 1 [facility] husk 3.4 03-06 t} Packet by ity o f gram oral 00:00: 05:59 mouth in [place] as powder 00 :00 the Medical packet morning Branch and 1 Packet at noon and 1 Packet in the evening. Do all this for 30 days. diphenoxyla 2021-03- Yes [id number] 1{tbl} Take 1 [facility] te-atropine 03-06 tablet by it y of 2.5-0.025 00:00: 05:59 mouth [place] mg tablet 00 :00 every 6 Medical (six) Branch hours for 30 days. simethicone 2021-03- Yes [id number] 80mg Take 1 [facility] 80 mg 03-06 tablet by ity of chewable 00:00: 05:59 mouth in [place] tablet 00 :00 the Medical morning Branch and 1 tablet at noon and 1 tablet in the evening. Take with meals. Do all this for 30 days. metoprolol 2021-03- Yes [id number] 25mg Take 1 [facility] tartrate 25 03-06 tablet by it y of mg tablet 00:00: 05:59 mouth in [place] as 00 :00 the Medical morning Branch and 1 tablet in the evening. Do all this for 30 days. amLODIPine 2021-03- Yes [id number] 10mg Take 1 [facility] 10 mg 03-06 tablet by ity of tablet 00:00: 05:59 mouth in [place] 00 :00 the Medical morning Branch for 30 days. psyllium 2021-03- Yes [id number] 1{packe Take 1 [facility] husk 3.4 03-06 t} Packet by ity o f gram oral 00:00: 05:59 mouth in [place] as powder 00 :00 the Medical packet morning Branch and 1 Packet at noon and 1 Packet in the evening. Do all this for 30 days. diphenoxyla 2021-03- Yes [id number] 1{tbl} Take 1 [facility] te-atropine 03-06 tablet by it y of 2.5-0.025 00:00: 05:59 mouth [place] mg tablet 00 :00 every 6 Medical (six) Branch hours for 30 days. simethicone 2021-03- Yes [id number] 80mg Take 1 [facility] 80 mg 03-06 tablet by ity of chewable 00:00: 05:59 mouth in [place] tablet 00 :00 the Medical morning Branch and 1 tablet at noon and 1 tablet in the evening. Take with meals. Do all this for 30 days. metoprolol 2021-03- Yes [id number] 25mg Take 1 [facility] tartrate 25 03-06 tablet by it y of mg tablet 00:00: 05:59 mouth in [place] as 00 :00 the Medical morning Branch and 1 tablet in the evening. Do all this for 30 days. amLODIPine 2021-03- Yes [id number] 10mg Take 1 [facility] 10 mg 03-06 tablet by ity of tablet 00:00: 05:59 mouth in [place] 00 :00 the Medical morning Branch for 30 days. psyllium 2021-03- Yes [id number] 1{packe Take 1 [facility] husk 3.4 03-06 t} Packet by ity o f gram oral 00:00: 05:59 mouth in [place] as powder 00 :00 the Medical packet morning Branch and 1 Packet at noon and 1 Packet in the evening. Do all this for 30 days. diphenoxyla 2021-03- Yes [id number] 1{tbl} Take 1 [facility] te-atropine 03-06 tablet by it y of 2.5-0.025 00:00: 05:59 mouth [place] mg tablet 00 :00 every 6 Medical (six) Branch hours for 30 days. simethicone 2021-03- Yes [id number] 80mg Take 1 [facility] 80 mg 03-06 tablet by ity of chewable 00:00: 05:59 mouth in [place] tablet 00 :00 the Medical morning Branch and 1 tablet at noon and 1 tablet in the evening. Take with meals. Do all this for 30 days. metoprolol 2021-03- Yes [id number] 25mg Take 1 [facility] tartrate 25 03-06 tablet by it y of mg tablet 00:00: 05:59 mouth in [place] as 00 :00 the Medical morning Branch and 1 tablet in the evening. Do all this for 30 days. amLODIPine 2021-03- Yes [id number] 10mg Take 1 [facility] 10 mg 03-06 tablet by ity of tablet 00:00: 05:59 mouth in [place] 00 :00 the Medical morning Branch for 30 days. psyllium 2021-03- Yes [id number] 1{packe Take 1 [facility] husk 3.4 03-06 t} Packet by ity o f gram oral 00:00: 05:59 mouth in [place] as powder 00 :00 the Medical packet morning Branch and 1 Packet at noon and 1 Packet in the evening. Do all this for 30 days. diphenoxyla 2021-03- Yes [id number] 1{tbl} Take 1 [facility] te-atropine 03-06 tablet by it y of 2.5-0.025 00:00: 05:59 mouth [place] mg tablet 00 :00 every 6 Medical (six) Branch hours for 30 days. simethicone 2021-03- Yes [id number] 80mg Take 1 [facility] 80 mg 03-06 tablet by ity of chewable 00:00: 05:59 mouth in [place] tablet 00 :00 the Medical morning Branch and 1 tablet at noon and 1 tablet in the evening. Take with meals. Do all this for 30 days. metoprolol 2021-03- Yes [id number] 25mg Take 1 [facility] tartrate 25 03-06 tablet by it y of mg tablet 00:00: 05:59 mouth in [place] as 00 :00 the Medical morning Branch and 1 tablet in the evening. Do all this for 30 days. amLODIPine 2021-03- Yes [id number] 10mg Take 1 [facility] 10 mg 03-06 tablet by ity of tablet 00:00: 05:59 mouth in [place] 00 :00 the Medical morning Branch for 30 days. psyllium 2021-03- Yes [id number] 1{packe Take 1 [facility] husk 3.4 03-06 t} Packet by ity o f gram oral 00:00: 05:59 mouth in [place] as powder 00 :00 the Medical packet morning Branch and 1 Packet at noon and 1 Packet in the evening. Do all this for 30 days. diphenoxyla 2021-03- Yes [id number] 1{tbl} Take 1 [facility] te-atropine 03-06 tablet by it y of 2.5-0.025 00:00: 05:59 mouth [place] mg tablet 00 :00 every 6 Medical (six) Branch hours for 30 days. simethicone 2021-03- Yes [id number] 80mg Take 1 [facility] 80 mg 03-06 tablet by ity of chewable 00:00: 05:59 mouth in [place] tablet 00 :00 the Medical morning Branch and 1 tablet at noon and 1 tablet in the evening. Take with meals. Do all this for 30 days. metoprolol 2021-03- Yes [id number] 25mg Take 1 [facility] tartrate 25 03-06 tablet by it y of mg tablet 00:00: 05:59 mouth in [place] as 00 :00 the Medical morning Branch and 1 tablet in the evening. Do all this for 30 days. amLODIPine 2021-03- Yes [id number] 10mg Take 1 [facility] 10 mg 03-06 tablet by ity of tablet 00:00: 05:59 mouth in [place] 00 :00 the Medical morning Branch for 30 days. psyllium 2021-03- Yes [id number] 1{packe Take 1 [facility] husk 3.4 03-06 t} Packet by ity o f gram oral 00:00: 05:59 mouth in [place] as powder 00 :00 the Medical packet morning Branch and 1 Packet at noon and 1 Packet in the evening. Do all this for 30 days. diphenoxyla 2021-03- No [id number] 1{tbl} Take 1 [facility] te-atropine 03-06 tablet by it y of 2.5-0.025 00:00: 00:00 mouth [place] mg tablet 00 :00 every 6 Medical (six) Branch hours for 30 days. simethicone 2021-03- No [id number] 80mg Take 1 [facility] 80 mg 03-06 tablet by ity of chewable 00:00: 00:00 mouth in [place] tablet 00 :00 the Medical morning Branch and 1 tablet at noon and 1 tablet in the evening. Take with meals. Do all this for 30 days. atorvastati 2021-03- No [id number] 80mg Take 1 [facility] n 80 mg 03-06 tablet by ity of tablet 00:00: 00:00 mouth at [place] 00 :00 bedtime. Medical Branch metoprolol 2021-03- No [id number] 25mg Take 1 [facility] tartrate 25 03-06 tablet by it y of mg tablet 00:00: 00:00 mouth in [place] as 00 :00 the Medical morning Branch and 1 tablet in the evening. Do all this for 30 days. amLODIPine 2021-03- No [id number] 10mg Take 1 [facility] 10 mg 03-06 tablet by ity of tablet 00:00: 00:00 mouth in [place] 00 :00 the Medical morning Branch for 30 days. sodium 2021-03- No [id number] 15mL Take 15 mL [facility] citrate-cit 03-06 by mouth ity of nayan acid 00:00: 00:00 in the [place] [facility] 00 :00 morning Medical mg/5 mL and 15 mL Branch solution in the evening for 30 days loperamide 2021-03- No [id number] 2mg Take 1 [facility] 2 mg 03-06 capsule by ity of capsule 00:00: 00:00 mouth [place] 00 :00 every 4 Medical (four) Branch hours. psyllium 2021-03- No [id number] 1{packe Take 1 [facility] husk 3.4 03-06 t} Packet by ity o f gram oral 00:00: 00:00 mouth in [place] as powder 00 :00 the Medical packet morning Branch and 1 Packet at noon and 1 Packet in the evening. Do all this for 30 days. diphenoxyla 2021-03- No [id number] 1{tbl} Take 1 [facility] te-atropine 03-06 tablet by it y of 2.5-0.025 00:00: 00:00 mouth [place] mg tablet 00 :00 every 6 Medical (six) Branch hours for 30 days. simethicone 2021-03- No [id number] 80mg Take 1 [facility] 80 mg 03-06 tablet by ity of chewable 00:00: [facility] the Medical morning Branch and 1 tablet at noon and 1 tablet in the evening. Take with meals. Do all this for 30 days. atorvastati 2021-03- No [id number] 80mg Take 1 [facility] n 80 mg 03-06 tablet by ity of tablet 00:00: 00:00 mouth at [place] 00 :00 bedtime. Medical Branch metoprolol 2021-03- No [id number] 25mg Take 1 [facility] tartrate 25 03-06 tablet by it y of mg tablet 00:00: 00:00 mouth in [place] as 00 :00 the Medical morning Branch and 1 tablet in the evening. Do all this for 30 days. amLODIPine 2021-03- No [id number] 10mg Take 1 [facility] 10 mg 03-06 tablet by ity of tablet 00:00: 00:00 mouth in [place] 00 :00 the Medical morning Branch for 30 days. sodium 2021-03- No [id number] 15mL Take 15 mL [facility] citrate-cit 03-06 by mouth ity of nayan acid 00:00: 00:00 in the [place] [id number] 00 :00 morning Medical mg/5 mL and 15 mL Branch solution in the evening for 30 days loperamide 2021-03- No [id number] 2mg Take 1 [facility] 2 mg 03-06 capsule by ity of capsule 00:00: 00:00 mouth [place] 00 :00 every 4 Medical (four) Branch hours. psyllium 2021-03- No [id number] 1{packe Take 1 [facility] husk 3.4 03-06 t} Packet by ity o f gram oral 00:00: 00:00 mouth in [facility] as powder 00 :00 the Medical packet morning Branch and 1 Packet at noon and 1 Packet in the evening. Do all this for 30 days. diphenoxyla 2021-03- No [id number] 1{tbl} Take 1 [facility] te-atropine 03-06 tablet by it y of 2.5-0.025 00:00: 00:00 mouth [place] mg tablet 00 :00 every 6 Medical (six) Branch hours for 30 days. simethicone 2021-03- No [id number] 80mg Take 1 [facility] 80 mg 03-06 tablet by ity of chewable 00:00: 00:00 [facility]00 the Medical morning Branch and 1 tablet at noon and 1 tablet in the evening. Take with meals. Do all this for 30 days. atorvastati 2021-03- No [id number] 80mg Take 1 [facility] n 80 mg 03-06 tablet by ity of tablet 00:00: 00:00 mouth at [place] 00 :00 bedtime. Medical Branch metoprolol 2021-03- No [id number] 25mg Take 1 [facility] tartrate 25 03-06 tablet by it y of mg tablet 00:00: 00:00 mouth in [facility] as 00 :00 the Medical morning Branch and 1 tablet in the evening. Do all this for 30 days. amLODIPine 2021-03- No [id number] 10mg Take 1 [facility] 10 mg 03-06 tablet by ity of tablet 00:00: 00:00 mouth in [place] 00 :00 the Medical morning Branch for 30 days. sodium 2021-03- No [id number] 15mL Take 15 mL [facility] citrate-cit 03-06 by mouth ity of nayan acid 00:00: 00:00 in the [place] [id number] 00 :00 morning Medical mg/5 mL and 15 mL Branch solution in the evening for 30 days loperamide 2021-03- No [id number] 2mg Take 1 [facility] 2 mg 03-06 capsule by ity of capsule 00:00: 00:00 mouth [place] 00 :00 every 4 Medical (four) Branch hours. psyllium 2021-03- No [id number] 1{packe Take 1 [facility] husk 3.4 03-06 t} Packet by ity o f gram oral 00:00: 00:00 mouth in [facility] as powder 00 :00 the Medical packet morning Branch and 1 Packet at noon and 1 Packet in the evening. Do all this for 30 days. diphenoxyla 2021-03- No [id number] 1{tbl} Take 1 [facility] te-atropine 03-06 tablet by it y of 2.5-0.025 00:00: 00:00 mouth [place] mg tablet 00 :00 every 6 Medical (six) Branch hours for 30 days. simethicone 2021-03- No [id number] 80mg Take 1 [facility] 80 mg 03-06 tablet by ity of chewable 00:00: 00:00 [place] tablet 00 :00 the Medical morning Branch and 1 tablet at noon and 1 tablet in the evening. Take with meals. Do all this for 30 days. atorvastati 2021-03- No [id number] 80mg Take 1 [facility] n 80 mg 03-06 tablet by ity of tablet 00:00: 00:00 mouth at [place] 00 :00 bedtime. Medical Branch metoprolol 2021-03- No [id number] 25mg Take 1 [facility] tartrate 25 03-06 tablet by it y of mg tablet 00:00: 00:00 mouth in [facility] as 00 :00 the Medical morning Branch and 1 tablet in the evening. Do all this for 30 days. amLODIPine 2021-03- No [id number] 10mg Take 1 [facility] 10 mg 03-06 tablet by ity of tablet 00:00: 00:00 mouth in [place] 00 :00 the Medical morning Branch for 30 days. sodium 2021-03- No [id number] 15mL Take 15 mL [facility] citrate-cit 03-06 by mouth ity of nayan acid 00:00: 00:00 in the [place] [facility] 00 :00 morning Medical mg/5 mL and 15 mL Branch solution in the evening for 30 days loperamide 2021-03- No [id number] 2mg Take 1 [facility] 2 mg 03-06 capsule by ity of capsule 00:00: 00:00 mouth [place] 00 :00 every 4 Medical (four) Branch hours. psyllium 2021-03- No [id number] 1{packe Take 1 [facility] husk 3.4 03-06 t} Packet by ity o f gram oral 00:00: 00:00 mouth in [facility] as powder 00 :00 the Medical packet morning Branch and 1 Packet at noon and 1 Packet in the evening. Do all this for 30 days. ondansetron 2021-03- Yes [id number] 4mg Take 1 [facility] 4 mg tablet 03-06 tablet by it y of 00:00: 05:59 mouth [place] 00 :00 every 8 Medical (eight) Branch hours as needed for Nausea and Vomiting (N/V) for up to 14 days. ondansetron 2021-03- Yes [id number] 4mg Take 1 [facility] 4 mg tablet 1-02 11-17 tablet by it y of 00:00: 05:59 mouth [place] 00 :00 every 8 Medical (eight) Branch hours as needed for Nausea and Vomiting (N/V) for up to 14 days. ondansetron 2021-03- Yes [id number] 4mg Take 1 [facility] 4 mg tablet 1- 11-17 tablet by it y of 00:00: 05:59 mouth [place] 00 :00 every 8 Medical (eight) Branch hours as needed for Nausea and Vomiting (N/V) for up to 14 days. ondansetron 2021-03- Yes [id number] 4mg Take 1 Univers 4 mg tablet 1- 11-17 tablet by it y of 00:00: 05:59 mouth [place] 00 :00 every 8 Medical (eight) Branch hours as needed for Nausea and Vomiting (N/V) for up to 14 days. ondansetron 2021-03- Yes [id number] 4mg Take 1 [facility] 4 mg tablet 1- 11-17 tablet by it y of 00:00: 05:59 mouth [place] 00 :00 every 8 Medical (eight) Branch hours as needed for Nausea and Vomiting (N/V) for up to 14 days. ondansetron 2021-03- Yes [id number] 4mg Take 1 [facility] 4 mg tablet 1- 11-17 tablet by it y of 00:00: 05:59 mouth [place] 00 :00 every 8 Medical (eight) Branch hours as needed for Nausea and Vomiting (N/V) for up to 14 days. ondansetron 2021-03- Yes [id number] 4mg Take 1 [facility] 4 mg tablet 1-02 11-17 tablet by it y of 00:00: 05:59 mouth [place] 00 :00 every 8 Medical (eight) Branch hours as needed for Nausea and Vomiting (N/V) for up to 14 days. ondansetron 2021-03- Yes [id number] 4mg Take 1 Univers 4 mg tablet 1-02 11-17 tablet by it y of 00:00: 05:59 mouth [place] 00 :00 every 8 Medical (eight) Branch hours as needed for Nausea and Vomiting (N/V) for up to 14 days. HYDROcodone 2021-03- Yes [id number] 1{tbl} Take 1 U nivers -acetaminop -02 11-10 tablet by it y of hen 5-325 00:00: 05:59 mouth [place] mg tablet 00 :00 every 6 Medical (six) Branch hours as needed for Pain (scale 7-10) for up to 7 days. Indication s: acute pain HYDROcodone 2021-03- Yes [id number] 1{tbl} Take 1 U nivers -acetaminop - 11-10 tablet by it y of hen 5-325 00:00: 05:59 mouth [place] mg tablet 00 :00 every 6 Medical (six) Branch hours as needed for Pain (scale 7-10) for up to 7 days. Indication s: acute pain HYDROcodone 2021-03- Yes [id number] 1{tbl} Take 1 U nivers -acetaminop -02 11-10 tablet by it y of hen 5-325 00:00: 05:59 mouth [place] mg tablet 00 :00 every 6 Medical (six) Branch hours as needed for Pain (scale 7-10) for up to 7 days. Indication s: acute pain loperamide 2021-03- No [id number] 2mg Take 1 Univers 2 mg 03-06 capsule by ity of capsule 00:00: 00:00 mouth [place] 00 :00 every 4 Medical (four) Branch hours for 30 days. diphenoxyla 2021-03 Yes 1{tbl} 1 tablet, Univers te-atropine 03-05 Oral, Q6H, it y of (LOMOTIL) 23:00: First dose [place] 2.5-0.025 00 on e Medical mg tablet 1 01/03/22 at Br anch tablet 1800, Until Discontinu ed, Routine furosemide 2021-03 Yes 40mg 40 mg, Unive rs (LASIX) 03-05 Oral, ity of tablet 40 14:00: DAILY, [place] mg 00 First dose Medical on Sun Branch 01/03/22 at 0900, Until Discontinu ed, Routine NaCl 0.9% 2021-03- No 1000mL at 125 Uni vers (NS) bolus 1-01 11-01 mL/hr, ity of infusion 13:00: 14:22 1,000 mL, [place] 1,000 mL 00 :48 IV Medical Piggyback, Branch ONCE, 1 dose, On Sun01/03/22 at 0800, Routine acetaminoph 2021-03- No 1{tbl} 1 tablet, Univers en-codeine 01-02 Oral, ONCE it y of (TYLENOL 13:45: 13:45 NOW, 1 [place] #3) 300-30 00 :00 dose, On Medic al mg tablet 1 Sun Branch tablet 01/02/22 at 0845, Routine magnesium 2021-03- No 4g 4 g, IV Univ ers sulfate in 01-02 Piggyback, it y of water 4 13:15: 15:45 at 25 [place] gram/50 mL 00 :00 mL/hr Medical (8 %) IV Administer Branc h Piggyback 4 over 120 g Minutes, ONCE, 1 dose, On Sun01/02/22 at 0815, Routine acetaminoph 2021-03- No 1{tbl} 1 tablet, Univers en-codeine 01-02 Oral, ONCE it y of (TYLENOL 02:15: 01:28 NOW, 1 [place] #3) 300-30 00 :00 dose, On Medic al mg tablet 1 Sun Branch tablet 01/01/22 at 2115, Routine sodium 2021-03- Yes 15mL 15 mL, Univers citrate-cit 12-20 Oral, BID, i ty of nayan acid 01:00: 01:59 100 doses, [place] (BICITRA) 00 :00 First dose Medi nani 500-334 (after Branch mg/5 mL last solution 15 reorder) mL on Sun01/01/22 at 2000, Last dose on Sun02/20/22 at 0800, Routine melatonin 2021-03- No 9mg 9 mg, Univer s (MELATIN) 01-02 Oral, ONCE ity of tablet 9 mg 01:00: 01:14 AT 1999, 1 [place] 00 :00 dose, On Medical Sun Branch 01/01/22 at 2000, Routine simethicone 2021-03 Yes 80mg 80 mg, Univ ers (GAS RELIEF 0-30 Oral, TID ity of (SIMETHICON 21:00: MEALS, [place] E)) 00 First dose Medical chewable (after Branch tablet 80 last mg modificati on) on [place] 01/01/22 at 1600, Until Discontinu ed, Routine NaCl 0.9% 2021-03 No at 150 Unive rs (NS) IV 0-30 10-31 mL/hr, IV ity of infusion 19:30: 14:36 Infusion, [place] 00 :20 CONTINUOUS Medical , Starting Branch on [place] 01/01/22 at 1430, Until 01/02/22 at 0936, Routine furosemide 2021-03 40mg 40 mg, Univ ers (LASIX) 0-30 10-30 Slow IV ity of injection 19:15: 19:09 Push, [place] 40 mg 00 :00 ONCE, 1 Medical dose, On [facility] 01/01/22 at 1415, Routine psyllium 2021-03 Yes 1{packe 1 Packet, U nivers husk 0-30 t} Oral, TID, ity of (METAMUCIL 19:00: First dose [place] (SUGAR 00 (after Medical FREE)) 3.4 last Branch gram oral modificati powder on) on [place] packet 1 01/01/22 Packet at 1400, Until Discontinu ed, Routine amLODIPine 2021-03 Yes 10mg 10 mg, Unive rs (NORVASC) 0-30 Oral, ity of tablet 10 14:00: DAILY, [place] mg 00 First dose Medical on On [facility] 01/01/22 at 0900, Until Discontinu ed, Routine FLUoxetine 2021-03 Yes 60mg 60 mg, Unive rs (PROZAC) 0-30 Oral, ity of capsule 60 14:00: DAILY, [place] mg 00 First dose Medical on On [facility] 01/01/22 at 0900, Until Discontinu ed, Routine sodium 2021-03 15mL 15 mL, Univers citrate-cit 0-30 10-30 Oral, BID, i ty of nayan acid 13:00: 12:45 1 dose, [place] (BICITRA) 00 :00 First dose Medi nani 500-334 (after Branch mg/5 mL last solution 15 modificati mL on) on [place] 01/01/22 at 0800, Routine NaCl 0.9% 2021-03 No 1000mL at 150 Uni vers (NS) IV 0-30 10-30 mL/hr, IV ity of infusion 10:45: 10:51 Infusion, [place] 1,000 mL 00 :13 ONCE, 1 Medical dose, On Branch 01/01/22 at 0545, Routine sodium 2021-03 No 15mL 15 mL, Univers citrate-cit 0-30 10-30 Oral, BID, i ty of nayan acid 01:00: 11:37 First [place] (BICITRA) 00 :47 [facility] 500-334 12/31/21 Branch mg/5 mL at 2000, solution 15 Until mL Discontinu ed, Routine NaCl 0.9% 2021-03 No 2000mL at 200 Uni vers (NS) bolus 0-29 10-29 mL/hr, ity of infusion 14:45: 14:45 2,000 mL, [place] 2,000 mL 00 :00 IV Medical Piggyback, Branch ONCE, 1 dose, [facility] 12/31/21 at 0945, STAT psyllium 2021-03- No 1{packe 1 Packet, Univers husk 0-29 10-30 t} Oral, BID, ity of (METAMUCIL 01:00: 13:39 First dose [place] (SUGAR 00 :34 (after Medical FREE)) 3.4 last Branch gram oral modificati powder on) on Sun packet 1 12/30/21 Packet at 2000, Until Discontinu ed, Routine loperamide 2021-03 Yes 2mg 2 mg, Univer s (IMODIUM 0-28 Oral, Q4H, ity o f A-D) 21:00: First dose [place] capsule 2 00 on Sun Medical mg 12/30/21 Branch at 1600, Until Discontinu ed, Routine NaCl 0.9% 2021-03- No 30mL/kg at 125 Un cecelia (NS) bolus 0-28 10-28 mL/hr, ity of infusion 20:00: 21:39 2,115 mL [place] 2,115 mL 00 :17 (30 mL/kg Medica l ?70.5 kg), Branch IV Piggyback, ONCE, 1 dose, On Sun12/30/21 at 1500, Routine simethicone 2022-1 2022- No 80mg 80 mg, Uni vers (GAS RELIEF 0-28 10-30 Oral, ity of (SIMETHICON 18:00: 20:49 PC+HS, [place] E)) 00 :30 First dose Medical chewable (after Branch tablet 80 last mg reorder) on Sun12/30/21 at 1300, Until Discontinu ed, Routine NaCl 0.9% 2021-03- No 1000mL at 200 Uni vers (NS) bolus 0-28 10-28 mL/hr, ity of infusion 15:15: 16:11 1,000 mL, [place] 1,000 mL 00 :00 IV Medical Piggyback, Branch ONCE, 1 dose, On Sun12/30/21 at 1015, STAT tamsulosin 2021-03 Yes .4mg 0.4 mg, Univ ers (FLOMAX) 0-28 Oral, ity of capsule 0.4 14:00: DAILY, [place] mg 00 First dose Medical on Sun Branch 12/30/21 at 0900, Until Discontinu ed, Routine fenofibrate 2021-03 Yes 134mg 134 mg, Un cecelia micronized 0- Oral, ity of (LOFIBRA) 14:00: DAILY, [place] capsule 134 00 First dose Me dical mg on Sun Branch 12/30/21 at 0900, Until Discontinu ed heparin 2021-03- No 5000U 5,000 Univers (porcine) 0- 11-01 Units, ity of injection 13:00: 18:34 Subcutaneo [place] 5,000 Units 00 :59 us, Q12H, Med ical First dose Branch on Sun12/30/21 at 0800, Until Discontinu ed, Routine simethicone 2021-03- No 80mg 80 mg, Uni vers (GAS RELIEF 0-28 10-28 Oral, ONCE i ty of (SIMETHICON 07:00: 07:07 NOW, 1 [place] E)) 00 :00 dose, On Medical chewable Sun Branch tablet 80 12/30/21 mg at 0200, Routine ondansetron 2021-03 Yes 4mg 4 mg, Slow Univers (ZOFRAN 0-28 IV Push, ity of (PF)) 04:48: Q8HPRN, [place] injection 4 15 Nausea and Me dical mg Vomiting Branch (N/V), Starting on [facility] 12/29/21 at 2348
Do ses of ondansetro n 16 mg and above need to be administer ed via IV piggyback. For Dose >=24mg ECG monitoring is advisable.
atorvastati 2021-03 Yes 80mg 80 mg, Univ ers n (LIPITOR) 0-28 Oral, QHS, it y of tablet 80 02:00: First dose [place] mg 00 on [facility] Medical 12/29/21 Branch at 2100, Until Discontinu ed, Routine metoprolol 2021-03 Yes 25mg 25 mg, Unive rs tartrate 0-28 Oral, BID, ity o f (LOPRESSOR) 01:00: First dose [place] tablet 25 00 on [facility] mg 12/29/21 Branch at 2000, Until Discontinu ed, Routine NaCl 0.9% 2021-03- No 1000mL at 200 Uni vers (NS) bolus 0-27 10-27 mL/hr, ity of infusion 22:45: 22:32 1,000 mL, [place] 1,000 mL 00 :33 IV Medical Piggyback, Branch ONCE, 1 dose, On [facility] 12/29/21 at 1745, STAT Sliding 2021-03 Yes Subcutaneo [facility] ers Scale 0-27 us, TID ity of Insulin - 22:00: MEALS+HS, [place] Lispro 00 First dose Medical (HumaLOG) + on [facility] 12/29/21 Testing at 1700, Until Discontinu ed, Routine acetaminoph 2021-03- No 1{tbl} 1 tablet, Univers en-codeine 0-12-31 Oral, ity of (TYLENOL 21:54: 21:53 Q6HPRN, [place] #3) 300-30 19 :19 Starting Medic al mg tablet 1 on [facility] tablet 12/29/21 at 1654, Until 12/31/21 at 1653, Routine, Pain (scale 4-6) acetaminoph 2021-03 Yes 650mg 650 mg, Un cecelia en 0-27 Oral, ity of (TYLENOL) 21:54: Q6HPRN, [place] tablet 650 09 Starting Medic al mg on [facility] Branch 12/29/21 at 1654, Until Discontinu ed, Routine, Pain (scale 1-3) dextrose 2021-03 Yes 250mL 250 mL, IV Un cecelia 10% (D10W) 0-27 Infusion, ity of bolus 21:49: PRN - SEE [place] infusion 34 INSTRUCTIO Medic al 250 mL NS, Branch Administer over 60 Minutes, Other, If blood glucose is < or = 70 mg/dL and patient is unable to swallow or has mental status changes, Starting on Bre 12/29/21 at 1649
If blood glucose is < or = 70 mg/dL and patient is unable to swallow or has mental status changes (Give glucagon order if patient needs fluid restrictio n): IF IV access available: Dextrose 10%. 1. 125 mL (? bag) of D10W IV infusion - equivalent to 12.5 g dextrose 2. Blood glucose - draw blood glucose 15 minutes after D10W Administra tion. 3. If blood glucose is < 80 mg/dL, repeat.
glucagon 2021-03 Yes 1mg 1 mg, Univers (GLUCAGEN 0-27 Intramuscu ity of DIAGNOSTIC 21:49: lar, PRN, [place] KIT) 30 Starting Medical injection 1 on Bre Branch mg 12/29/21 at 1649, Until Discontinu ed, NILESH, Blood Glucose < or = 70 mg/dL and patient is unable to swallow or has mental changes. sodium 2021-03 No 50meq 50 mEq, Univer s bicarbonate 012-29 Slow IV ity of 8.4 % (1 18:30: 18:26 Push, [place] mEq/mL) 00 :00 ONCE, 1 Medical injection dose, On Branch 50 mEq Bre 12/29/21 at 1330, STAT sodium 2021-03 No 15g 15 g, Univers polystyrene 012-29 Oral, ity of sulfonate 18:30: 18:28 ONCE, 1 [place] (KAYEXALATE 00 :00 dose, On Medi nani ) 15 Bre Branch gram/60 mL 12/29/21 suspension at 1330, 15 g Routine calcium 2021-03 No 1g 1 g, IV Univer s gluconate 1 12-29 Infusion, it y of g in NaCl 18:30: 19:08 at 100 [place] 50 mL 00 :00 mL/hr Medical (ISO-OSM) Administer Bran ch RTU IV over 30 infusion 1 Minutes, g ONCE, 1 dose, On Bre 12/29/21 at 1330, Routine metoclopram 2021-03 No 10mg 10 mg, Uni vers rahel HCl 12-29 Slow IV ity of (REGLAN) 17:45: 18:30 Push, [place] injection 00 :00 ONCE, 1 Medical 10 mg dose, On Branch Bre 12/29/21 at 1245, NILESH albuterol 2021-03- No 5mg 5 mg, Univer s (PROVENTIL) 12-29 Inhalation i ty of 2.5 mg /3 17:45: 18:08 , ONCE, 1 [place] mL (0.083 00 :00 dose, On Medica l %) Bre Branch nebulizer 12/29/21 solution 5 at 1245, mg STAT insulin 2021-03 10U 10 Units, Univ ers regular 12-29 Slow IV ity of human 17:45: 18:18 Push, [place] (HUMULIN R) 00 :00 ONCE, 1 Medic al injection dose, On Branch 10 Units Bre 12/29/21 at 1245, NILESH
In dication for insulin: Hyperkalem ia- Please use the Insulin Protocol for Hyperkalem ia order set dextrose 2021-03 No 250mL 250 mL, IV U nivers 10% (D10W) 12-29 Infusion, ity of bolus 17:45: 18:33 ONCE, [place] infusion 00 :00 Administer Medic al 250 mL over 15 Branch Minutes, On Bre 12/29/21 at 1245, For 1 dose
De xtrose 10% 250 mL bag contains:& nbsp;10 gm = 100 mL 20 gm = 200 mL 25 gm = 250 mL (whole bag) The maximum rate at which dextrose can be infused without producing glycosuria is 0.5 g/kg/hour. &nbs p;BUD: If wrapper is open bag is good for 30 days at room temperatur e. <b r> acetaminoph 2021-03- No 650mg 650 mg, U nivers en 012-29 Oral, ity of (TYLENOL) 16:45: 16:45 ONCE, 1 [place] tablet 650 00 :00 dose, On Medic al mg [facility] Branch 12/29/21 at 1145, NILESH heparin 2021-03- No 50U 50 Units, Univ ers lock flush 12-29 IV Push, ity of (HEPARIN 16:45: 16:45 ONCE, 1 [place] LOCKFLUSH(P 00 :00 dose, On Medi nani ORCINE)(PF) [facility] ) 100 12/29/21 unit/mL at 1145, injection NILESH 50 Units amLODIPine 2021-03- Yes [id number] 10mg Take 1 Univers 10 mg 0-21 11-21 tablet by ity of tablet 00:00: 05:59 mouth in [place] 00 :00 [facility] for 30 days. amLODIPine 2021-03- Yes [id number] 10mg Take 1 Univers 10 mg 0-21 11-21 tablet by ity of tablet 00:00: 05:59 mouth in [place] 00 :00 [facility] for 30 days. amLODIPine 2021-03- Yes [id number] 10mg Take 1 Univers 10 mg 0-21 11-21 tablet by ity of tablet 00:00: 05:59 mouth in [place] 00 :00 [facility] for 30 days. amLODIPine 2021-03- Yes [id number] 10mg Take 1 Univers 10 mg 0-21 11-21 tablet by ity of tablet 00:00: 05:59 mouth in [place] 00 :00 [facility] for 30 days. amLODIPine 2021-03- No [id number] 10mg Take 1 Univers 10 mg 0-21 11-02 tablet by ity of tablet 00:00: 00:00 mouth in [place] 00 :00 [facility] for 30 days. tamsulosin 2021-03 Yes [id number] .4mg Take 1 Univers (FLOMAX) 0-20 capsule by ity o f 0.4 mg 24 00:00: mouth [place] hr capsule 00 the [facility]. Branch tamsulosin 2021-03 Yes [id number] .4mg Take 1 Univers (FLOMAX) 0-20 capsule by ity o f 0.4 mg 24 00:00: mouth [place] hr capsule 00 the Medical morning. Branch tamsulosin 2021-03 Yes [id number] .4mg Take 1 Univers (FLOMAX) 0-20 capsule by ity o f 0.4 mg 24 00:00: mouth [place] hr capsule 00 the Medical morning. Branch tamsulosin 2021-03 Yes [id number] .4mg Take 1 Univers (FLOMAX) 0-20 capsule by ity o f 0.4 mg 24 00:00: mouth [place] hr capsule 00 the Medical morning. Branch tamsulosin 2021-03 Yes [id number] .4mg Take 1 Univers (FLOMAX) 0-20 capsule by ity o f 0.4 mg 24 00:00: mouth [place] hr capsule 00 the morning. Branch tamsulosin 2021-03 Yes [id number] .4mg Take 1 Univers (FLOMAX) 0-20 capsule by ity o f 0.4 mg 24 00:00: mouth [place] hr capsule the morning. Branch tamsulosin 2021-03 Yes [id number] .4mg Take 1 Univers (FLOMAX) 0-20 capsule by ity o f 0.4 mg 24 00:00: mouth [place] hr capsule the morning. Branch tamsulosin 2021-03 Yes [id number] .4mg Take 1 Univers (FLOMAX) 0-20 capsule by ity o f 0.4 mg 24 00:00: mouth [place] hr capsule the morning. Branch tamsulosin 2021-03 Yes [id number] .4mg Take 1 Univers (FLOMAX) 0-20 capsule by ity o f 0.4 mg 24 00:00: mouth [place] hr capsule 00 the Medical morning. Branch tamsulosin 2021-03 Yes [id number] .4mg Take 1 Univers (FLOMAX) 0-20 capsule by ity o f 0.4 mg 24 00:00: mouth [place] hr capsule 00 the Medical morning. Branch tamsulosin 2021-03 Yes [id number] .4mg Take 1 Univers (FLOMAX) 0-20 capsule by ity o f 0.4 mg 24 00:00: mouth [place] hr capsule 00 the Medical morning. Branch tamsulosin 2021-03 Yes [id number] .4mg Take 1 Univers (FLOMAX) 0-20 capsule by ity o f 0.4 mg 24 00:00: mouth [place] hr capsule 00 the Medical morning. Branch tamsulosin 2021-03 Yes [id number] .4mg Take 1 Univers (FLOMAX) 0-20 capsule by ity o f 0.4 mg 24 00:00: mouth [place] hr capsule 00 the Medical morning. Branch tamsulosin 2021-03 Yes [id number] .4mg Take 1 Univers (FLOMAX) 0-20 capsule by ity o f 0.4 mg 24 00:00: mouth in [place] hr capsule 00 the Medical morning. Branch tamsulosin 2021-03- No [id number] .4mg Take 1 Univers (FLOMAX) 0-20 11-23 capsule by ity of 0.4 mg 24 00:00: 00:00 mouth in [place] hr capsule 00 :00 the Medical morning. [place] tamsulosin 2021-03- No [id number] .4mg Take 1 Univers (FLOMAX) 0-20 11-23 capsule by ity of 0.4 mg 24 00:00: 00:00 mouth in [place] hr capsule 00 :00 the Medical morning. Branch tamsulosin 2021-03- No [id number] .4mg Take 1 Univers (FLOMAX) 0-20 11-23 capsule by ity of 0.4 mg 24 00:00: 00:00 mouth in [place] hr capsule 00 :00 the Medical morning. Branch tamsulosin 2021-03- No [id number] .4mg Take 1 Univers (FLOMAX) 0-20 11-23 capsule by ity of 0.4 mg 24 00:00: 00:00 mouth in [place] hr capsule 00 :00 the Medical morning. Branch hydrALAZINE 2021-03- Yes [id number] 10mg Take 1 Univers 10 mg 0-20 11-20 tablet by ity of tablet 00:00: 05:59 mouth in [place] 00 :00 the Medical morning Branch and 1 tablet in the evening. Do all this for 30 days. lisinopriL 2021-03- Yes [id number] 5mg Take 2 Univers 2.5 mg 0-20 11-20 tablets by ity of tablet 00:00: 05:59 mouth in [place] 00 :00 the [facility] for 30 days. hydrALAZINE 2021-03- Yes [id number] 10mg Take 1 Univers 10 mg 0-20 11-20 tablet by ity of tablet 00:00: 05:59 mouth in [place] 00 :00 the [facility] and 1 tablet in the evening. Do all this for 30 days. lisinopriL 2021-03- Yes [id number] 5mg Take 2 Univers 2.5 mg 0-20 11-20 tablets by ity of tablet 00:00: 05:59 mouth in [place] 00 :00 the [facility] for 30 days. hydrALAZINE 2021-03- Yes [id number] 10mg Take 1 Univers 10 mg 0-20 11-20 tablet by ity of tablet 00:00: 05:59 mouth in [place] 00 :00 the [facility] and 1 tablet in the evening. Do all this for 30 days. lisinopriL 2021-03- Yes [id number] 5mg Take 2 Univers 2.5 mg 0-20 11-20 tablets by ity of tablet 00:00: 05:59 mouth in [place] 00 :00 the [facility] for 30 days. hydrALAZINE 2021-03- Yes [id number] 10mg Take 1 Univers 10 mg 0-20 11-20 tablet by ity of tablet 00:00: 05:59 mouth in [place] 00 :00 the [facility] and 1 tablet in the evening. Do all this for 30 days. lisinopriL 2021-03- Yes [id number] 5mg Take 2 Univers 2.5 mg 0-20 11-20 tablets by ity of tablet 00:00: 05:59 mouth in [place] 00 :00 the [facility] for 30 days. hydrALAZINE 2021-03- No [id number] 10mg Take 1 Univers 10 mg 0-20 11-02 tablet by ity of tablet 00:00: 00:00 mouth in [place] 00 :00 the [facility] and 1 tablet in the evening. Do all this for 30 days. lisinopriL 2021-03- No [id number] 5mg Take 2 Univers 2.5 mg 0-20 11-02 tablets by ity of tablet 00:00: 00:00 mouth in [place] 00 :00 the Medical morning Branch for 30 days. oxyCODONE 5 2021-03- No [id number] 5mg Take 1 Uni vers mg 0-20 11-02 tablet by ity of immediate 00:00: 00:00 mouth [place] release 00 :00 every 6 Medical tablet (six) Branch hours as needed for Pain (scale 4-6) or Pain (scale 7-10) for up to 7 days. Indication s: acute pain oxyCODONE 5 2021-03- Yes [id number] 5mg Take 1 Uni vers mg 0-20 10-28 tablet by ity of immediate 00:00: 04:59 mouth [place] release 00 :00 every 6 Medical tablet (six) Branch hours as needed for Pain (scale 4-6) or Pain (scale 7-10) for up to 7 days. Indication s: acute pain oxyCODONE 5 2021-03- Yes [id number] 5mg Take 1 Uni vers mg 0-20 10-28 tablet by ity of immediate 00:00: 04:59 mouth [place] release 00 :00 every 6 Medical tablet (six) Branch hours as needed for Pain (scale 4-6) or Pain (scale 7-10) for up to 7 days. Indication s: acute pain oxyCODONE 5 2021-03- Yes [id number] 5mg Take 1 Uni vers mg 0-20 10-28 tablet by ity of immediate 00:00: 04:59 mouth [place] release 00 :00 every 6 Medical tablet (six) Branch hours as needed for Pain (scale 4-6) or Pain (scale 7-10) for up to 7 days. Indication s: acute pain simethicone 2021-03- No [id number] 80mg Take 1 Univers 80 mg 0-20 10-20 tablet by ity of chewable 00:00: 00:00 mouth 2 [place] tablet 00 :00 (two) Medical times Branch daily as needed for Gas for up to 30 days. magnesium 2021-03- No 2g 2 g, IV Univ ers sulfate in 0-19 10-19 Piggyback, it y of water 2 16:15: 18:36 Administer [place] gram/50 mL 00 :00 over 60 Medica l (4 %) Minutes, Branch infusion 2 ONCE, 1 g dose, On Sun12/21/21 at 1115, Routine NaCl 0.9% 2021-03 No 1000mL at 999 Uni vers (NS) bolus 0-21 12-19 mL/hr, ity of infusion 16:00: 17:26 1,000 mL, [place] 1,000 mL 00 :34 IV Medical Piggyback, Branch ONCE, 1 dose, On Sun12/21/21 at 1100, STAT magnesium 2021-03 No 2g 2 g, IV Univ ers sulfate in 012-21 Piggyback, it y of water 2 14:00: 15:05 Administer [place] gram/50 mL 00 :00 over 60 Medica l (4 %) Minutes, Branch infusion 2 ONCE, 1 g dose, On Sun12/21/21 at 0900, Routine insulin 2021-03 No 4U 4 Units, Unive rs glargine 12-21 Subcutaneo ity of (LANTUS 13:45: 13:53 us, ONCE, [place] U-100) 00 :00 1 dose, On Medical injection 4 Sun Branch Units 12/21/21 at 0845, Routine D5W 0.45% 2021-03 No 1000mL at 50 Univ ers NaCl 0-18 10-20 mL/hr, ity of (1/2NS) IV 14:15: 13:38 1,000 mL, [place] infusion 00 :52 IV Medical 1,000 mL Infusion, Branch CONTINUOUS , Starting on Sun12/20/21 at 0915, Until Bre 12/22/21 at 0838, Routine D5W 0.45% 2021-03 No 1000mL at 75 Univ ers NaCl 0-16 10-18 mL/hr, ity of (1/2NS) IV 20:30: 14:09 1,000 mL, [place] infusion 00 :40 IV Medical 1,000 mL Infusion, Branch CONTINUOUS , Starting on Sun12/18/21 at 1530, Until Sun12/20/21 at 0909, Routine lactated 2021-03 No 500mL at 999 Unive rs ringers IV 0-16 10-16 mL/hr, 500 it y of infusion 15:30: 16:46 mL, [place] 500 mL 00 :28 Intravenou Medical s, ONCE, 1 Branch dose, On 12/18/21 at 1030, Routine heparin 2021-03- No 5mL 500 Units Univ ers lock flush 0-15 10-15 (5 mL), IV it y of (HEPARIN 18:30: 17:36 Push, [place] LOCKFLUSH(P 00 :00 ONCE, 1 Medic al ORCINE)(PF) dose, On Bran ch ) 100 Sat unit/mL 12/17/21 injection at 1330, 500 Units Routine morpHINE (2 2021-03 Yes 4mg 4 mg, Slow Univers mg/mL) 0-15 IV Push, ity of injection 4 17:00: Q6HPRN, [place] mg 00 Starting Medical on Sat Branch 12/17/21 at 1200, Until Discontinu ed, Routine, breakthrou gh pain acetaminoph 2021-03 Yes 650mg 650 mg, Un cecelia en 0-15 Oral, Q6H, ity of (TYLENOL) 17:00: First dose [place] tablet 650 00 on Sat Medical mg 12/17/21 Branch at 1200, Until Discontinu ed, Routine oxyCODONE 2021-03 Yes 5mg 5 mg, Univers immediate 0-15 Oral, ity of release 16:51: Q6HPRN, [place] tablet 5 mg 30 Starting Medi nani on Sat Branch 12/17/21 at 1151, Until Discontinu ed, Routine, Pain (scale 4-6), Pain (scale 7-10)
F aculty member approving Restricted medication : SURGENB lisinopriL 2021-03 Yes 10mg 10 mg, Unive rs (PRINIVIL,Z 0-15 Oral, ity of ESTRIL) 14:00: DAILY, [place] tablet 10 00 First dose Medi nani mg (after Branch last modificati on) on 12/17/21 at 0900, Until Discontinu ed, Routine ferrous 2021-03- No 324mg 324 mg, Unive rs gluconate 0-14 10-15 Oral, TID ity of tablet 324 22:00: 22:34 MEALS, [place] mg 00 :05 First dose Medical on Fri Branch 12/16/21 at 1700, Until Discontinu ed, Routine magnesium 2021-03 No 4g 4 g, IV Univ ers sulfate in 0-14 10-14 Piggyback, it y of water 4 20:30: 23:58 at 25 [place] gram/50 mL 00 :00 mL/hr Medical (8 %) IV Administer Branc h Piggyback 4 over 120 g Minutes, ONCE, 1 dose, On Sun12/16/21 at 1530, Routine acetaminoph 2021-03- No 1000mg 1,000 mg, Univers en ADULT 0-14 10-15 IV ity of (OFIRMEV) 19:00: 14:46 Infusion, [place] injection 00 :00 at 400 Medical 1,000 mg mL/hr Branch Administer over 15 Minutes, Q8H, 3 doses, First dose on Sun12/16/21 at 1400, Last dose on Sun12/17/21 at 0600, Routine
Indicatio n: Perioperat safia Patient pantoprazol 2021-03 Yes 40mg 40 mg, Univ ers e 0-14 Slow IV ity of (PROTONIX) 18:00: Push, [place] injection 00 Q24H, Medical 40 mg First dose Branch on Sun12/16/21 at 1300, Until Discontinu ed metoclopram 2021-03 Yes 10mg 10 mg, Univ ers rahel HCl 0-14 Slow IV ity of (REGLAN) 17:00: Push, Q6H, [place] injection 00 First dose Medi nani 10 mg on Sun Branch 12/16/21 at 1200, Until Discontinu ed, Routine NaCl 0.45% 2021-03- No Univer s (1/2NS) 0-14 10-16 ity of 1000 mL + 17:00: 19:16 [place] KCL 20 mEq 00 :20 Medical Branch lisinopriL 2021-03- No 10mg 10 mg, Univ ers (PRINIVIL,Z 0-14 10-14 Oral, ity of ESTRIL) 16:30: 17:10 ONCE, 1 [place] tablet 10 00 :00 dose, On Medica l mg Sun Branch 12/16/21 at 1130, Routine pantoprazol 2021-03- No 40mg 40 mg, Uni vers e 0-14 10-14 Oral, ity of (PROTONIX) 14:00: 16:50 DAILY, [place] EC tablet 00 :57 First dose Medi nani 40 mg on Sun Branch 12/16/21 at 0900, Until Discontinu ed, Routine ferrous 2021-03- No 325mg 325 mg, Unive rs sulfate 0-13 10-14 Oral, TID ity of tablet 325 22:00: 14:29 MEALS, [place] mg 00 :12 First dose Medical on [facility] Branch 12/15/21 at 1700, Until Discontinu ed, Routine furosemide 2021-03 Yes 40mg 40 mg, Unive rs (LASIX) 0-13 Oral, ity of tablet 40 15:00: DAILY, [place] mg 00 First dose Medical on [facility] Branch 12/15/21 at 1000, Until Discontinu ed, Routine tamsulosin 2021-03 Yes .4mg 0.4 mg, Univ ers (FLOMAX) 0-13 Oral, ity of capsule 0.4 14:00: DAILY, [place] mg 00 First dose Medical on [facility] Branch 12/15/21 at 0900, Until Discontinu ed, Routine NaCl 0.45% 2021-03 No Univer s (1/2NS) 0-12 10- ity of 1000 mL + 13:45: 18:10 [place] KCL 20 mEq 00 :52 Medical Branch acetaminoph 2021-03- No 650mg 650 mg, U nivers en 0-12 10-14 Oral, Q6H, ity of (TYLENOL) 05:00: 16:49 First dose [place] tablet 650 00 :15 on Sun Medical mg 12/14/21 Branch at 0000, Until Discontinu ed, Routine heparin 2021-03 Yes 5000U 5,000 Univers (porcine) 0-12 Units, ity of injection 03:00: Subcutaneo [place] 5,000 Units 00 us, Q8H, Medi nani First dose Branch on Sun12/13/21 at 2200, Until Discontinu ed, Routine iron 2021-03- No 1000mg 1,000 mg, Unive rs dextran 0-11 10-11 IV ity of (INFED) 19:30: 23:43 Infusion, [place] 1,000 mg in 00 :00 ONCE, 1 Medic al NaCl 0.9% dose, On Branch (NS) 500 mL e IV infusion 12/13/21 at 1430, Administer over 1.5 Hours, 500 mL NaCl 0.45% 2021-03 Yes Univers (1/2NS) 0-11 ity of 1000 mL + 16:15: [place] KCL 20 mEq 00 [facility] Branch NaCl 0.45% 2021-03 No Univer s (1/2NS) 0-11 10-12 ity of 1000 mL + 16:15: 13:35 [place] KCL 20 mEq 00 :02 [facility] Branch enoxaparin 2021-03 Yes 40mg 40 mg, Unive rs (LOVENOX) 0-11 Subcutaneo ity of injection 14:00: us, DAILY, [place] 40 mg 00 First dose Medical on [facility] 12/13/21 at 0900, Until Discontinu ed, Routine enoxaparin 2021-03 No 40mg 40 mg, Univ ers (LOVENOX) 0-11 10-11 Subcutaneo ity of injection 14:00: 23:51 us, DAILY, [place] 40 mg 00 :07 First dose Medical on [facility] 12/13/21 at 0900, Until Discontinu ed, Routine hydrALAZINE 2021-03 Yes 10mg 10 mg, Univ ers (APRESOLINE 0-11 Oral, BID, it y of ) tablet 10 13:00: First dose [place] mg 00 (after Medical last Branch modificati on) on Sun12/13/21 at 0800, Until Discontinu ed, Routine hydrALAZINE 2021-03 Yes 10mg 10 mg, Univ ers (APRESOLINE 0-11 Oral, BID, it y of ) tablet 10 13:00: First dose [place] mg 00 (after Medical last Branch modificati on) on 12/13/21 at 0800, Until Discontinu ed, Routine alvimopan 2021-03 No 12mg 12 mg, Unive rs (ENTEREG) 0-11 10-18 Oral, BID, ity of capsule 12 13:00: 12:59 14 doses, [place] mg 00 :00 First dose Medical on [facility] 12/13/21 at 0800, Last dose on Sun12/19/21 at 2000, Routine
Restricte d use approved by: DOMINGO DRISCOLL - VALERIO/TAMIKA COOMBS alvimopan 2021-03 No 12mg 12 mg, Unive rs (ENTEREG) 0-11 10-13 Oral, BID, ity of capsule 12 13:00: 11:05 14 doses, [place] mg 00 :34 First dose Medical on [facility] 12/13/21 at 0800, Last dose on Sun12/19/21 at 2000, Routine
Restricte d use approved by: DOMINGO DRISCOLL - SURGERY/ NERAL gabapentin 2021-03 Yes 300mg 300 mg, Uni vers (NEURONTIN) 0-11 Oral, Q8H, it y of capsule 300 03:00: First dose [place] mg 00 on [facility] 12/12/21 Branch at 2200, Until Discontinu ed, Routine methocarbam 2021-03 Yes 500mg 500 mg, Un cecelia oL 0-11 Intravenou ity of (ROBAXIN) 03:00: s, Q8H, [place] injection 00 First dose Medi nani 500 mg on [facility] 12/12/21 at 2200, Until Discontinu ed, Routine gabapentin 2021-03 No 300mg 300 mg, Un cecelia (NEURONTIN) 0-11 10-15 Oral, Q8H, i ty of capsule 300 03:00: 22:34 First dose [place] mg 00 :05 on [facility] 12/12/21 Branch at 2200, Until Discontinu ed, Routine methocarbam 2021-03 No 500mg 500 mg, U nivers oL 0-11 10-15 Intravenou ity of (ROBAXIN) 03:00: 22:34 s, Q8H, [place] injection 00 :05 First dose Medi nani 500 mg on [facility] 12/12/21 at 2200, Until Discontinu ed, Routine acetaminoph 2021-03 No 1000mg 1,000 mg, Univers en ADULT 0-10 10-11 IV ity of (OFIRMEV) 23:00: 19:02 Infusion, [place] injection 00 :[address] [place] [address] 1,000 mg mL/hr Branch Administer over 15 Minutes, Q6H, 4 doses, First dose on Sun12/12/21 at 1800, Last dose on Sun12/13/21 at 1200, Routine
Indicatio n: Perioperat safia Patient ondansetron 2021-03 No 4mg 4 mg, Slow Univers (ZOFRAN 0-10 10-10 IV Push, ity of (PF)) 21:58: 22:37 PRN, 1 [place] injection 4 33 :00 dose, Medical mg Starting Branch on Sun12/12/21 at 1658, Until Sun12/12/21 at 1737, Routine, Nausea and Vomiting (N/V), PACU hydralAZINE 2021-03- No 10mg 10 mg, Uni vers (APRESOLINE 0-10 10-10 Slow IV ity of ) injection 21:11: 23:32 Push, [place] 10 mg 32 :29 Q15MIN Medical PRN, 6 Branch doses, Starting on Sun12/12/21 at 1611, Until Sun12/12/21 at 1832, Routine, DBP=>100; SBP=>160, PACU pantoprazol 2021-03- No 40mg 40 mg, Uni vers e 0-10 10-13 Slow IV ity of (PROTONIX) 20:45: 20:44 Push, [place] injection 00 :00 Q24H, 3 Medical 40 mg doses, Branch First dose on Sun12/12/21 at 1545, Last dose on Sun12/14/21 at 1545, Routine pantoprazol 2021-03- No 40mg 40 mg, Uni vers e 0-10 10-12 Slow IV ity of (PROTONIX) 20:45: 22:46 Push, [place] injection 00 :00 Q24H, 3 Medical 40 mg doses, Branch First dose on Sun12/12/21 at 1545, Last dose on Sun12/14/21 at 1545 ePHEDrine 2021-03- No Slow IV Univ ers 25 mg/5 mL 0-10 10-10 Push, ONCE it y of (5 mg/mL) 20:34: 21:16 INTRA [place] syringe 00 :17 PROCEDURE, Medica l Starting Branch on Sun12/12/21 at 1534, Until Sun12/12/21 at 1616, Routine, Intra-op glucagon 2021-03 Yes 1mg 1 mg, Univers (GLUCAGEN 0-10 Intramuscu ity of DIAGNOSTIC 20:30: lar, PRN, [place] KIT) 42 Starting Medical injection 1 on Sun Branch mg 12/12/21 at 1530, Until Discontinu ed, NILESH, Blood Glucose < or = 70 mg/dL and patient is unable to swallow or has mental changes. dextrose 50 2021-03 Yes 25mL 25 mL, Univ ers % in water 0-10 Slow IV ity of (D50W) 20:30: Push, PRN, [place] injection 42 Starting Medica l 25 mL on [facility] 12/12/21 at 1530, Until Discontinu ed, NILESH, Blood Glucose < or = 70 mg/dL and patient is unable to swallow or has mental status changes. naloxone 2021-03 Yes .1mg 0.1 mg, Univer s (NARCAN) 0-10 Slow IV ity of injection 20:30: Push, PRN [place] 0.1 mg 42 - SEE Medical INSTRUCTIO Branch NS, Starting on Sun12/12/21 at 1530, Until Discontinu ed, Routine, Sedation/R espiratory Depression morpHINE (2 2021-03 Yes 2mg 2 mg, Slow Univers mg/mL) 0-10 IV Push, ity of injection 2 20:30: Q4HPRN, [place] mg 42 Starting Medical on [facility] 12/12/21 at 1530, Until Discontinu ed, Routine, Pain (scale 7-10) glucagon 2021-03 Yes 1mg 1 mg, Univers (GLUCAGEN 0-10 Intramuscu ity of DIAGNOSTIC 20:30: lar, PRN, [place] KIT) 42 Starting Medical injection 1 on [facility] 12/12/21 at 1530, Until Discontinu ed, NILESH, Blood Glucose < or = 70 mg/dL and patient is unable to swallow or has mental changes. dextrose 50 2021-03 Yes 25mL 25 mL, Univ ers % in water 0-10 Slow IV ity of (D50W) 20:30: Push, PRN, [place] injection 42 Starting Medica l 25 mL on [facility] 12/12/21 at 1530, Until Discontinu ed, NILESH, Blood Glucose < or = 70 mg/dL and patient is unable to swallow or has mental status changes. naloxone 2021-03 Yes .1mg 0.1 mg, Univer s (NARCAN) 0-10 Slow IV ity of injection 20:30: Push, PRN [place] 0.1 mg 42 - SEE Medical INSTRUCTIO Branch NS, Starting on Sun12/12/21 at 1530, Until Discontinu ed, Routine, Sedation/R espiratory Depression morpHINE (2 2021-03- No 2mg 2 mg, Slow Univers mg/mL) 0-10 10-15 IV Push, ity of injection 2 20:30: 16:51 Q4HPRN, [place] mg 42 :52 Starting Medical on [facility] Branch 12/12/21 at 1530, Until 12/17/21 at 1151, Routine, Pain (scale 7-10) sugammadex 2021-03- No IV Push, Un cecelia (BRIDION) 0-10 10-10 ONCE INTRA ity of injection 20:23: 21:16 PROCEDURE, [place] 00 :17 Starting Medical on [facility] 12/12/21 at 1523, Until [facility] 12/12/21 at 1616, Routine, Intra-op propofoL IV 2021-03- No IV Unive rs infusion 0-10 10-10 Infusion, ity o f 19:45: 21:16 CONTINUOUS [place] 00 :17 PRN, Medical Starting Branch on Sun12/12/21 at 1445, Until Discontinu ed, Routine, Intra-op sodium 2021-03- No Slow IV Univers bicarbonate 0-10 10-10 Push, ONCE i ty of 8.4 % (1 19:41: 21:16 INTRA [place] mEq/mL) 00 :17 PROCEDURE, Medica l injection Starting Branch on Sun12/12/21 at 1441, Until Discontinu ed, Routine, Intra-op acetaminoph 2021-03- No IV Unive rs en ADULT 0-10 10-10 Infusion, ity o f ([facility]) 18:08: 21:16 Administer [place] injection 00 :17 over 15 Medical Minutes, Branch ONCE INTRA PROCEDURE, Starting on Sun12/12/21 at 1308, Until Discontinu ed, Routine, Intra-op calcium 2021-03- No Intravenou Uni vers chloride 0-10 10-10 s, ONCE ity of 100 mg/mL 17:58: 21:16 INTRA [place] (10 %) 00 :17 PROCEDURE, Medical syringe Starting Branch on Sun12/12/21 at 1258, Until Discontinu ed, Routine, Intra-op Transfuse 2021-03- No NILESH Univers Packed RBC 0-10 10-10 ity of (in mL)~ 17:53: 21:16 [place] 02 :17 Medical Branch albumin 2021-03- No IV Univers (ALBUTEIN 5 0-10 10-10 Infusion, it y of %) 5 % 14:44: 21:16 CONTINUOUS [place] injection 00 :17 PRN, Medical Starting Branch on Sun12/12/21 at 0944, Until Discontinu ed, Intra-op sodium 2021-03- No PRN, Univers chloride 0-10 10-10 Starting ity of 0.9 % 14:34: 20:36 on Sun [place] irrigation 00 :19 12/12/21 Medic al solution at 0934, Branch Until Sun12/12/21 at 1536, Intra-op HYDROmorphO 2021-03- No Slow IV Un cecelia ne 0-10 10-10 Push, ONCE ity of (DILAUDID) 14:00: 21:16 INTRA [place] injection 00 :17 PROCEDURE, [facility] nani Starting Branch on Sun12/12/21 at 0900, Until Discontinu ed, Routine, Intra-op glycopyrrol 2021-03- No Intravenou Univers ate 0-10 10-10 s, ONCE ity of (ROBINUL) 13:37: 21:16 INTRA [place] injection 00 :17 PROCEDURE, [facility] nani Starting Branch on Sun12/12/21 at 0837, Until Discontinu ed, Routine, Intra-op dexamethaso 2021-03- No IV Push, U nivers ne 0-10 10-10 ONCE INTRA ity of (DECADRON 13:15: 21:16 PROCEDURE, [place] PHOSPHATE) 00 :17 Starting Medic al injection on [facility] Branch 12/12/21 at 0815, Until Discontinu ed, Routine, Intra-op lidocaine 2021-03- No Slow IV Univ ers 1% 0-10 10-10 Push, ONCE ity of (XYLOCAINE) 13:14: 21:16 INTRA [place] 100 mg/10 00 :17 PROCEDURE, Medi nani mL (1 %) Starting Branch injection on Sun12/12/21 at 0814, Until Discontinu ed, Routine, Intra-op metroNIDAZO 2021-03- No IV Unive rs LE in NaCl 0-10 10-10 Infusion, ity of (iso-os) 13:08: 21:16 ONCE INTRA [place] (FLAGYL 00 :17 PROCEDURE, Medica l I.V.) RTU Starting Branch IV infusion on Sun12/12/21 at 0808, Until Discontinu ed, Administer over 75 Minutes, Intra-op cefTRIAXone 2021-03- No Slow IV Un cecelia (ROCEPHIN) 0-10 10-10 Push, ONCE it y of injection 13:08: 21:16 INTRA [place] 00 :17 PROCEDURE, Medical Starting Branch on Sun12/12/21 at 0808, Until Discontinu ed, NILESH, Intra-op electrolyte 2021-03- No IV Unive rs -A 0-10 10-10 Infusion, ity of (PLASMALYTE 12:58: 21:16 CONTINUOUS [place] -A) IV 00 :17 PRN, Medical infusion Starting Branch on Sun12/12/21 at 0758, Until Discontinu ed, Routine, Intra-op phenylephri 2021-03- No Slow IV Un cecelia ne 0-10 10-10 Push, ONCE ity of (VAZCULEP) 12:27: 21:16 INTRA [place] injection 00 :17 PROCEDURE, Medi nani Starting Branch on Sun12/12/21 at 0727, Until Discontinu ed, Routine, Intra-op rocuronium 2021-03- No IV Push, Un cecelia (ZEMURON) 0-10 10-10 ONCE INTRA ity of injection 12:27: 21:16 PROCEDURE, [place] 00 :17 Starting Medical on Sun12/12/21 at 0727, Until Discontinu ed, Routine, Intra-op propofoL IV 2021-03- No IV Unive rs infusion 0-10 10-10 Infusion, ity o f 12:27: 21:16 ONCE INTRA [place] 00 :17 PROCEDURE, Medical Starting Branch on Sun12/12/21 at 0727, Until Discontinu ed, Routine, Intra-op FENTanyl PF 2021-03- No Intravenou Univers (SUBLIMAZE 0-10 10-10 s, ONCE ity o f (PF)) 12:27: 21:16 INTRA [place] injection 00 :17 PROCEDURE, Medi nani Starting Branch on Sun12/12/21 at 0727, Until Discontinu ed, Routine, Intra-op lactated 2021-03 No IV Univers ringers IV 0-10 10-10 Infusion, ity of infusion 12:15: 21:16 CONTINUOUS [place] 00 :17 PRN, Medical Starting Branch on [facility] 12/12/21 at 0715, Until Discontinu ed, Routine, Intra-op midazolam 2021-03 No IV Push, Uni vers (VERSED) 0-10 10-10 ONCE INTRA ity of injection 12:15: 21:16 PROCEDURE, [place] 00 :17 Starting Medical on [facility] Branch 12/12/21 at 0715, Until Discontinu ed, Routine, Intra-op bupivacaine 2021-03 No Caudal Uni vers (preserv 0-10 10-10 Block, ity of free) 12:11: 21:16 ONCE INTRA [place] (SENSORCAIN 00 :17 PROCEDURE, Me dical E MPF) 0.25 Starting Bran ch % (2.5 on Sun mg/mL) 12/12/21 injection at 0711, Until Discontinu ed, Routine, Intra-op alvimopan 2021-03 No 12mg 12 mg, Unive rs (ENTEREG) 0-10 10-10 Oral, ity of capsule 12 10:00: 11:07 ONCE, 1 [place] mg 00 :00 dose, On [facility] 12/12/21 at 0500, Routine
Restricte d use approved by: DOMINGO DRISCOLL - SURGERY/ NERAL gabapentin 2021-03 No 300mg 300 mg, Un cecelia (NEURONTIN) 0-10 10-10 Oral, ity of capsule 300 10:00: 11:07 ONCE, 1 [place] mg 00 :00 dose, On [facility] 12/12/21 at 0500, Routine acetaminoph 2021-03 No 650mg 650 mg, U nivers en 0-10 10-10 Oral, ity of (TYLENOL) 10:00: 11:07 ONCE, 1 [place] tablet 650 00 :00 dose, On Medic al mg [facility] 12/12/21 at 0500, Routine peg-electro 2021-03 No 4000mL 4,000 mL, Univers lyte soln 0-09 10-09 Oral, ity of (GOLYTELY) 15:45: 15:46 ONCE, 1 [place] [id number] 00 :00 dose, On [facility] nani .74 -5.86 Sun Branch gram 12/11/21 at solution 1045, 4,000 mL Routine iron 2021-03 No 1000mg 1,000 mg, Unive rs dextran 0-07 10-07 IV ity of (INFED) 14:15: 16:19 Infusion, [place] 1,000 mg in 00 :00 ONCE, 1 Medic al NaCl 0.9% dose, On Branch (NS) 500 mL Fri IV infusion 12/09/21 at 0915, Administer over 1.5 Hours, 500 mL magnesium 2021-03 No 2g 2 g, IV Univ ers sulfate in 0-06 -06 Piggyback, it y of water 2 11:15: 11:45 Administer [place] gram/50 mL 00 :51 over 60 Medica l (4 %) Minutes, Branch infusion 2 ONCE, 1 g dose, On Bre 12/08/21 at 0615, Routine melatonin 2021-03 Yes 3mg 3 mg, Univers (MELATIN) 0-06 Oral, QHS, ity of tablet 3 mg 02:15: First dose [place] 00 (after Medical last Branch modificati on) on Sun12/07/21 at 2115, Until Discontinu ed, Routine melatonin 2021-03 Yes 3mg 3 mg, Univers (MELATIN) 0-06 Oral, QHS, ity of tablet 3 mg 02:15: First dose [place] 00 (after Medical last Branch modificati on) on Sun12/07/21 at 2115, Until Discontinu ed, Routine hydrALAZINE 2021-03 No 10mg 10 mg, Uni vers (APRESOLINE 0-06 10-10 Oral, BID, i ty of ) tablet 10 01:00: 20:33 First dose [place] mg 00 :49 on Sun Medical 12/07/21 at Branch 2000, Until Discontinu ed, Routine NaCl 0.9% 2021-03 No 1000mL at 100 Uni vers (NS) IV 0-06 10-06 mL/hr, IV ity of infusion 00:00: 23:59 Infusion, [place] 1,000 mL 00 :00 CONTINUOUS Medic al , Starting Branch on Sun12/07/21 at 1900, Until Bre 12/08/21 at 1859, Routine NaCl 0.9% 2021-03 No 1000mL at 100 Uni vers (NS) IV 0-04 10-05 mL/hr, IV ity of infusion 22:45: 22:44 Infusion, [place] 1,000 mL 00 :00 CONTINUOUS Medic al , Starting Branch on Sun12/06/21 at 1745, Until Sun12/07/21 at 1744, Routine lisinopriL 2021-03 Yes 5mg 5 mg, Univer s (PRINIVIL,Z 0-04 Oral, ity of ESTRIL) 14:00: DAILY, [place] tablet 5 mg 00 First dose Me dical on [facility] Branch 12/06/21 at 0900, Until Discontinu ed, Routine lisinopriL 2021-03 Yes 5mg 5 mg, Univer s (PRINIVIL,Z 0-04 Oral, ity of ESTRIL) 14:00: DAILY, [place] tablet 5 mg 00 First dose Me dical on [facility] Branch 12/06/21 at 0900, Until Discontinu ed, Routine lisinopriL 2021-03- No 5mg 5 mg, Unive rs (PRINIVIL,Z 0-04 10-14 Oral, ity of ESTRIL) 14:00: 15:44 DAILY, [place] tablet 5 mg 00 :05 First dose Me dical on [facility] 12/06/21 at 0900, Until Discontinu ed, Routine peg-electro 2021-03- No 4000mL 4,000 mL, Univers lyte soln 0-03 10-03 Oral, ity of (GOLYTELY) 12:42: 13:24 TITRATE - [place] [id number] 10 :00 FOR Medical .74 -5.86 PROCEDURE Branc h gram USE, 1 solution dose, 4,000 mL Starting on Sun12/05/21 at 0742, Until Sun12/05/21 at 0824, Routine, Constipati on, stat magnesium 2021-03 No 4g 4 g, IV Univ ers sulfate in 0-03 10- Piggyback, it y of water 4 12:30: 13:24 ONCE, 1 [place] gram/50 mL 00 :00 dose, On Medic al (8 %) IV Sun Branch Piggyback 4 12/05/21 at g 0730, Routine bisacodyL 2021-03- No 10mg 10 mg, Unive rs (DULCOLAX) 0-03 10-03 Oral, ity of tablet 10 11:33: 11:45 PRE-PROCED [place] mg 31 :00 URE ONCE, Medical 1 dose, Branch Starting on 12/05/21 at 0633, Until 12/05/21 at 0645, Routine, Bowel Prep, Colonoscop y bisacodyL 2021-03- No 10mg 10 mg, Unive rs (DULCOLAX) 0- 1002 Oral, ity of tablet 10 21:30: 18:45 PRE-PROCED [place] mg 00 :00 URE ONCE, Medical 1 dose, Branch Starting on 12/04/21 at 1630, Until 12/04/21 at 1345, Routine, Bowel Prep, Colonoscop y bisacodyL 2021-03- No 10mg 10 mg, Unive rs (DULCOLAX) 0-12-04 Oral, ity of tablet 10 18:00: 21:17 PRE-PROCED [place] mg 00 :00 URE ONCE, Medical 1 dose, Branch Starting on 12/04/21 at 1300, Until 12/04/21 at 1617, Routine, Bowel Prep, Colonoscop y ondansetron 2021-03 Yes 4mg 4 mg, Slow Univers (ZOFRAN 0-02 IV Push, ity of (PF)) 17:12: Q8HPRN, [place] injection 4 15 Nausea and Me dical mg Vomiting Branch (N/V), Starting on 12/04/21 at 1212
Do ses of ondansetro n 16 mg and above need to be administer ed via IV piggyback. For Dose >=24mg ECG monitoring is advisable.
ondansetron 2021-03 Yes 4mg 4 mg, Slow Univers (ZOFRAN 0-02 IV Push, ity of (PF)) 17:12: Q8HPRN, [place] injection 4 15 Nausea and Me dical mg Vomiting Branch (N/V), Starting on 12/04/21 at 1212
Do ses of ondansetro n 16 mg and above need to be administer ed via IV piggyback. For Dose >=24mg ECG monitoring is advisable.
ondansetron 2021-03 Yes 4mg 4 mg, Slow [employer] (ZOFRAN 0-02 IV Push, ity of (PF)) 17:12: Q8HPRN, [place] injection 4 15 Nausea and Me dical mg Vomiting Branch (N/V), Starting on 12/04/21 at 1212
Do ses of ondansetro n 16 mg and above need to be administer ed via IV piggyback. For Dose >=24mg ECG monitoring is advisable.
ondansetron 2021-03 Yes 4mg 4 mg, Slow [employer] (ZOFRAN 0-02 IV Push, ity of (PF)) 17:12: Q8HPRN, [place] injection 4 15 Nausea and Me dical mg Vomiting Branch (N/V), Starting on 12/04/21 at 1212
Do ses of ondansetro n 16 mg and above need to be administer ed via IV piggyback. For Dose >=24mg ECG monitoring is advisable.
ondansetron 2021-03 Yes 4mg 4 mg, Slow [employer] (ZOFRAN 0-02 IV Push, ity of (PF)) 17:12: Q8HPRN, [place] injection 4 15 Nausea and Me dical mg Vomiting Branch (N/V), Starting on 12/04/21 at 1212
Do ses of ondansetro n 16 mg and above need to be administer ed via IV piggyback. For Dose >=24mg ECG monitoring is advisable.
lactated 2021-03 No 1000mL at 100 Univ ers ringers IV 0-02 10-03 mL/hr, ity of infusion 15:30: 15:29 1,000 mL, [place] 1,000 mL 00 :00 IV Medical Infusion, Branch CONTINUOUS , Starting on 12/04/21 at 1030, Until 12/05/21 at 1029, Routine simethicone 2021-03 Yes 80mg 80 mg, Univ ers (GAS RELIEF 0-02 Oral, ity of (SIMETHICON 14:18: BIDPRN, [place] E)) 35 Starting Medical chewable on Sun Branch tablet 80 12/04/21 at mg 0918, Until Discontinu ed, Routine, Gas simethicone 2021-03 Yes 80mg 80 mg, Univ ers (GAS RELIEF 0-02 Oral, ity of (SIMETHICON 14:18: BIDPRN, [place] E)) 35 Starting Medical chewable on Sun Branch tablet 80 12/04/21 at mg 0918, Until Discontinu ed, Routine, Gas simethicone 2021-03 Yes 80mg 80 mg, Univ ers (GAS RELIEF 0-02 Oral, ity of (SIMETHICON 14:18: BIDPRN, [place] E)) 35 Starting Medical chewable on Sun Branch tablet 80 12/04/21 at mg 0918, Until Discontinu ed, Routine, Gas simethicone 2021-03 Yes 80mg 80 mg, Univ ers (GAS RELIEF 0-02 Oral, ity of (SIMETHICON 14:18: BIDPRN, [place] E)) 35 Starting Medical chewable on Sun Branch tablet 80 12/04/21 at mg 0918, Until Discontinu ed, Routine, Gas peg-electro 2021-03- No 4000mL 4,000 mL, Univers lyte soln 0-02 1003 Oral, PRN ity of (GOLYTELY) 13:11: 12:42 - SEE [place] [id number] :31 INSTRUCTIO Ga dical .74 -5.86 NS, Branch gram Starting solution on Sun 4,000 mL 12/04/21 at 0811, Until 12/05/21 at 0742, Routine, Bowel Prep, colonoscop y ondansetron 2021-03- No 4mg 4 mg, Slow Univers (ZOFRAN 0-02 10 IV Push, ity of (PF)) 03:15: 03:09 ONCE, On [place] injection 4 00 :00 Sat Medical mg 12/03/21 at [place] 2215, For 1 dose
Do ses of ondansetro n 16 mg and above need to be administer ed via IV piggyback. For Dose >=24mg ECG monitoring is advisable.
insulin 2021-03 Yes 5U 5 Units, Univer s glargine 0-02 Subcutaneo ity o f (LANTUS 02:00: us, QHS, [place] U-100) 00 First dose Medical injection 5 on Sat Branch Units 12/03/21 at 2100, Until Discontinu ed, Routine insulin 2021-03 Yes 5U 5 Units, Univer s glargine 0-02 Subcutaneo ity o f (LANTUS 02:00: us, [facility], [place] U-100) 00 First dose Medical injection 5 on Sat Branch Units 12/03/21 at 2100, Until Discontinu ed, Routine insulin 2021-03 No 5U 5 Units, Unive rs glargine 0-02 1005 Subcutaneo ity of (LANTUS 02:00: 14:24 us, [facility], [place] U-100) 00 :25 First dose Medical injection 5 on Sat Branch Units 12/03/21 at 2100, Until Discontinu ed, Routine simethicone 2021-03 No 80mg 80 mg, Uni vers (GAS RELIEF 0-12-04 Oral, ity of (SIMETHICON 00:15: 02:09 ONCE, 1 [place] E[place] 00 :00 dose, On Medical chewable [facility] tablet 80 12/03/21 at mg 1915, Routine polyethylen 2021-03 Yes 17g 17 g, Unive rs e glycol 0-01 Oral, ity of 3350 powder 15:30: DAILY, [place] 17 g 00 First dose Medical on [facility] 12/03/21 at 1030, Until Discontinu ed, Routine polyethylen 2021-03 Yes 17g 17 g, Unive rs e glycol 0-01 Oral, ity of 3350 powder 15:30: DAILY, [place] 17 g 00 First dose Medical on [facility] 12/03/21 at 1030, Until Discontinu ed, Routine polyethylen 2021-03 No 17g 17 g, Univ ers e glycol 0-01 10-10 Oral, ity of 3350 powder 15:30: 20:36 DAILY, [place] 17 g 00 :19 First dose Medical on [facility] 12/03/21 at 1030, Until Discontinu ed, Routine amLODIPine 2021-03 Yes 10mg 10 mg, Unive rs (NORVASC) 0-01 Oral, ity of tablet 10 14:00: DAILY, [place] mg 00 First dose Medical on [facility] 12/03/21 at 0900, Until Discontinu ed, Routine amLODIPine 2021-03 Yes 10mg 10 mg, Unive rs (NORVASC) 0-01 Oral, ity of tablet 10 14:00: DAILY, [place] mg 00 First dose Medical on [facility] 12/03/21 at 0900, Until Discontinu ed, Routine amLODIPine 2021-03 Yes 10mg 10 mg, Unive rs (NORVASC) 0-01 Oral, ity of tablet 10 14:00: DAILY, [place] mg 00 First dose Medical on [facility] 12/03/21 at 0900, Until Discontinu ed, Routine amLODIPine 2021-03 Yes 10mg 10 mg, Unive rs (NORVASC) 0-01 Oral, ity of tablet 10 14:00: DAILY, [place] mg 00 First dose Medical on [facility] 12/03/21 at 0900, Until Discontinu ed, Routine atorvastati 2021-03 Yes 80mg 80 mg, Univ ers n (LIPITOR) 0-01 Oral, QHS, it y of tablet 80 02:00: First dose [place] mg 00 on Sun [facility] 12/02/21 at Branch 2100, Until Discontinu ed, Routine atorvastati 2021-03 Yes 80mg 80 mg, Univ ers n (LIPITOR) 0-01 Oral, QHS, it y of tablet 80 02:00: First dose [place] mg 00 on Sun [facility] 12/02/21 at Branch 2100, Until Discontinu ed, Routine atorvastati 2021-03 Yes 80mg 80 mg, Univ ers n (LIPITOR) 0-01 Oral, QHS, it y of tablet 80 02:00: First dose [place] mg 00 on Sun [facility] 12/02/21 at Branch 2100, Until Discontinu ed, Routine atorvastati 2021-03 Yes 80mg 80 mg, Univ ers n (LIPITOR) 0-01 Oral, QHS, it y of tablet 80 02:00: First dose [place] mg 00 on Sun [facility] 12/02/21 at Branch 2100, Until Discontinu ed, Routine metoprolol 2021-03 Yes 25mg 25 mg, Unive rs tartrate 0-01 Oral, BID, ity o f (LOPRESSOR) 01:15: First dose [place] tablet 25 00 on [facility] 12/02/21 at Branch 2015, Until Discontinu ed, Routine metoprolol 2021-03 Yes 25mg 25 mg, Unive rs tartrate 0-01 Oral, BID, ity o f (LOPRESSOR) 01:15: First dose [place] tablet 25 00 on Sun Medical mg 12/02/21 at [place] 2014, Until Discontinu ed, Routine metoprolol 2021-03 Yes 25mg 25 mg, Unive rs tartrate 0-01 Oral, BID, ity o f (LOPRESSOR) 01:15: First dose [place] tablet 25 00 on Sun Medical mg 12/02/21 at [place] 2014, Until Discontinu ed, Routine metoprolol 2021-03 Yes 25mg 25 mg, Unive rs tartrate 0-01 Oral, BID, ity o f (LOPRESSOR) 01:15: First dose [place] tablet 25 00 on Sun Medical mg 12/02/21 at [place] 2014, Until Discontinu ed, Routine pantoprazol 2021-03 Yes 40mg 40 mg, Univ ers e 0-01 Oral, BID, ity of (PROTONIX) 01:00: First dose [place] EC tablet 00 on Sun Medical 40 mg 12/02/21 at [place] 1999, Until Discontinu ed, Routine pantoprazol 2021-03 Yes 40mg 40 mg, Univ ers e 0-01 Oral, BID, ity of (PROTONIX) 01:00: First dose [place] EC tablet 00 on Sun Medical 40 mg 12/02/21 at [place] 1999, Until Discontinu ed, Routine pantoprazol 2021-03- No 40mg 40 mg, Uni vers e 0-01 10-10 Oral, BID, ity of (PROTONIX) 01:00: 20:34 First dose [place] EC tablet 00 :02 on Sun Medical 40 mg 12/02/21 at [place] 1999, Until Discontinu ed, Routine FLUoxetine 2021-0 Yes 60mg 60 mg, Unive rs (PROZAC) 9-30 Oral, ity of capsule 60 14:00: DAILY, [place] mg 00 First dose Medical on Sun [place] 12/02/21 at 0900, Until Discontinu ed, Routine FLUoxetine 2021-0 Yes 60mg 60 mg, Unive rs (PROZAC) 9-30 Oral, ity of capsule 60 14:00: DAILY, [place] mg 00 First dose Medical on Sun Branch 12/02/21 at 0900, Until Discontinu ed, Routine FLUoxetine Yes 60mg 60 mg, Unive rs (PROZAC) 930 Oral, ity of capsule 60 14:00: DAILY, [place] mg 00 First dose Medical on Sun Branch 12/02/21 at 0900, Until Discontinu ed, Routine FLUoxetine Yes 60mg 60 mg, Unive rs (PROZAC) 930 Oral, ity of capsule 60 14:00: DAILY, [place] mg 00 First dose Medical on Sun Branch 12/02/21 at 0900, Until Discontinu ed, Routine Sliding Yes Subcutaneo Univ ers Scale 9-30 us, TID ity of Insulin - 13:00: MEALS+HS, [place] Lispro 00 First dose Medical (HumaLOG) + on Sun Branch Fsbg 12/02/21 at Testing 0800, Until Discontinu ed, Routine Sliding Yes Subcutaneo Univ ers Scale 9-30 us, TID ity of Insulin - 13:00: MEALS+HS, [place] Lispro 00 First dose Medical (HumaLOG) + on Sun Branch Fsbg 12/02/21 at Testing 0800, Until Discontinu ed, Routine Sliding Yes Subcutaneo Univ ers Scale 9-30 us, TID ity of Insulin - 13:00: MEALS+HS, [place] Lispro 00 First dose Medical (HumaLOG) + on Sun Branch Fsbg 12/02/21 at Testing 0800, Until Discontinu ed, Routine Sliding Yes Subcutaneo Univ ers Scale 9-30 us, TID ity of Insulin - 13:00: MEALS+HS, [place] Lispro 00 First dose Medical (HumaLOG) + on Sun Branch Fsbg 12/02/21 at Testing 0800, Until Discontinu ed, Routine ondansetron No 4mg 4 mg, Slow Univers (ZOFRAN 12-02 IV Push, ity of (PF)) 12:40: 12:57 ONCE, On [place] injection 4 00 :00 Fri Medical mg 12/02/21 at Branch 0745, For 1 dose
Do ses of ondansetro n 16 mg and above need to be administer ed via IV piggyback. For Dose >=24mg ECG monitoring is advisable.
NaCl 0.9% 2021- No 1000mL at 100 Uni vers (NS) IV 12-02 mL/hr, IV ity of infusion 08:30: 23:19 Infusion, [place] 1,000 mL 00 :25 CONTINUOUS Medic al , Starting Branch on Sun12/02/21 at 0330, Until Sun12/02/21 at 1819, Routine iron No 1000mg 1,000 mg, Unive rs dextran 12-02 IV ity of (INFED) 08:00: 11:29 Infusion, [place] 1,000 mg in 00 :00 ONCE, 1 Medic al NaCl 0.9% dose, On Branch (NS) 500 mL Fri IV infusion 12/02/21 at 0300, Administer over 1.5 Hours, 500 mL iron No 25mg 25 mg, IV Univers dextran 12-02 Piggyback, ity o f (INFED) 25 08:00: 09:12 ONCE, 1 [place] mg in NaCl 00 :00 dose, On Medic al 0.9% (NS) Fri Branch 100 mL IV 12/02/21 at piggyback 0300, Administer over 15 Minutes, 100 mL dextrose Yes 250mL 250 mL, IV Un cecelia 10% (D10W) 12-02 Infusion, ity of bolus 07:23: PRN - SEE [place] infusion 59 INSTRUCTIO Medic al 250 mL NS, Branch Administer over 60 Minutes, Other, If blood glucose is < or = 70 mg/dL and patient is unable to swallow or has mental status changes, Starting on Sun12/02/21 at 0223
If blood glucose is < or = 70 mg/dL and patient is unable to swallow or has mental status changes (Give glucagon order if patient needs fluid restrictio n): IF IV access available: Dextrose 10%. 1. 125 mL (? bag) of D10W IV infusion - equivalent to 12.5 g dextrose 2. Blood glucose - draw blood glucose 15 minutes after D10W Administra tion. 3. If blood glucose is < 80 mg/dL, repeat.
dextrose 2022-0 Yes 250mL 250 mL, IV Un cecelia 10% (D10W) 9-30 Infusion, ity of bolus 07:23: PRN - SEE [place] infusion 59 INSTRUCTIO Medic al 250 mL NS, Branch Administer over 60 Minutes, Other, If blood glucose is < or = 70 mg/dL and patient is unable to swallow or has mental status changes, Starting on Sun12/02/21 at 0223
If blood glucose is < or = 70 mg/dL and patient is unable to swallow or has mental status changes (Give glucagon order if patient needs fluid restrictio n): IF IV access available: Dextrose 10%. 1. 125 mL (? bag) of D10W IV infusion - equivalent to 12.5 g dextrose 2. Blood glucose - draw blood glucose 15 minutes after D10W Administra tion. 3. If blood glucose is < 80 mg/dL, repeat.
dextrose 2021-0 Yes 250mL 250 mL, IV Un cecelia 10% (D10W) 9-30 Infusion, ity of bolus 07:23: PRN - SEE [place] infusion 59 INSTRUCTIO Medic al 250 mL NS, Branch Administer over 60 Minutes, Other, If blood glucose is < or = 70 mg/dL and patient is unable to swallow or has mental status changes, Starting on Sun12/02/21 at 0223
If blood glucose is < or = 70 mg/dL and patient is unable to swallow or has mental status changes (Give glucagon order if patient needs fluid restrictio n): IF IV access available: Dextrose 10%. 1. 125 mL (? bag) of D10W IV infusion - equivalent to 12.5 g dextrose 2. Blood glucose - draw blood glucose 15 minutes after D10W Administra tion. 3. If blood glucose is < 80 mg/dL, repeat.
dextrose 2021-0 Yes 250mL 250 mL, IV Un cecelia 10% (D10W) 9-30 Infusion, ity of bolus 07:23: PRN - SEE [place] infusion 59 INSTRUCTIO Medic al 250 mL NS, Branch Administer over 60 Minutes, Other, If blood glucose is < or = 70 mg/dL and patient is unable to swallow or has mental status changes, Starting on Sun12/02/21 at 0223
If blood glucose is < or = 70 mg/dL and patient is unable to swallow or has mental status changes (Give glucagon order if patient needs fluid restrictio n): IF IV access available: Dextrose 10%. 1. 125 mL (? bag) of D10W IV infusion - equivalent to 12.5 g dextrose 2. Blood glucose - draw blood glucose 15 minutes after D10W Administra tion. 3. If blood glucose is < 80 mg/dL, repeat.
glucagon 2022-0 Yes 1mg 1 mg, Univers (GLUCAGEN 9-30 Intramuscu ity of DIAGNOSTIC 07:23: lar, PRN, [place] KIT) 55 Starting Medical injection 1 on Sun [facility] 12/02/21 at 0223, Until Discontinu ed, NILESH, Blood Glucose < or = 70 mg/dL and patient is unable to swallow or has mental changes. glucagon 2022-0 Yes 1mg 1 mg, Univers (GLUCAGEN 9-30 Intramuscu ity of DIAGNOSTIC 07:23: lar, PRN, [place] KIT) 55 Starting Medical injection 1 on Sun [facility] 12/02/21 at 0223, Until Discontinu ed, NILESH, Blood Glucose < or = 70 mg/dL and patient is unable to swallow or has mental changes. glucagon 2022-0 Yes 1mg 1 mg, Univers (GLUCAGEN 9-30 Intramuscu ity of DIAGNOSTIC 07:23: lar, PRN, [place] KIT) 55 Starting Medical injection 1 on Sun [facility] 12/02/21 at 0223, Until Discontinu ed, NILESH, Blood Glucose < or = 70 mg/dL and patient is unable to swallow or has mental changes. glucagon 2022-0 Yes 1mg 1 mg, Univers (GLUCAGEN 9-30 Intramuscu ity of DIAGNOSTIC 07:23: lar, PRN, [place] KIT) 55 Starting Medical injection 1 on Sun [facility] 12/02/21 at 0223, Until Discontinu ed, NILESH, Blood Glucose < or = 70 mg/dL and patient is unable to swallow or has mental changes. acetaminoph 2021-0 Yes 650mg 650 mg, Un cecelia en 12-02 Oral, ity of (TYLENOL) 06:52: Q6HPRN, [place] tablet 650 27 Starting Medic al mg on Fri Branch 12/02/21 at 0152, Until Discontinu ed, Routine, Pain (scale 4-6) acetaminoph 2021-0 Yes 650mg 650 mg, Un cecelia en 12-02 Oral, ity of (TYLENOL) 06:52: Q6HPRN, [place] tablet 650 27 Starting Medic al mg on Fri Branch 12/02/21 at 0152, Until Discontinu ed, Routine, Pain (scale 4-6) pantoprazol 2021-0 2021- No 8mg/h 8 mg/hr U nivers e 12-02 (50 ity of (PROTONIX) 04:45: 23:05 mL/hr), IV [place] 80 mg in 00 :00 Infusion, Medica l NaCl 0.9% CONTINUOUS Bran ch (NS) 500 mL , Starting infusion on Bre 12/01/21 at 2345 pantoprazol 2021-0 2021- No 80mg 80 mg, IV Univers e 12-02 Push, ity of (PROTONIX) 04:30: 04:52 ONCE, 1 [place] 80 mg in 00 :00 dose, On Medical NaCl 0.9% Bre Branch (NS) 20 mL 12/01/21 at syringe 2330, Administer over 2 Minutes, 20 mL FENOFIBRATE 2021-0 Yes [id number] Take 1 Univers 145 mg 9-27 tablet by ity of tablet 00:00: mouth once [place] daily [facility] Branch FENOFIBRATE 2021-0 Yes [id number] Take 1 Univers 145 mg 9-27 tablet by ity of tablet 00:00: mouth once [place] daily [facility] Branch FENOFIBRATE 2021-0 Yes [id number] Take 1 Univers 145 mg 9-27 tablet by ity of tablet 00:00: mouth once [place] daily Medical Branch FENOFIBRATE 2021-0 Yes [id number] Take 1 Univers 145 mg 9-27 tablet by ity of tablet 00:00: mouth once [place] daily [facility] Branch FENOFIBRATE 2021-0 Yes [id number] Take 1 Univers 145 mg 9-27 tablet by ity of tablet 00:00: mouth once daily Medical Branch FENOFIBRATE 2021-0 Yes [id number] Take 1 Univers 145 mg 9-27 tablet by ity of tablet 00:00: mouth once daily Medical Branch FENOFIBRATE 2021-0 Yes [id number] Take 1 Univers 145 mg 9-27 tablet by ity of tablet 00:00: mouth once daily Medical Branch FENOFIBRATE 2021-0 Yes [id number] Take 1 Univers 145 mg 9-27 tablet by ity of tablet 00:00: mouth once daily Medical Branch FENOFIBRATE 2021-0 Yes [id number] Take 1 Univers 145 mg 9-27 tablet by ity of tablet 00:00: mouth once daily Medical Branch FENOFIBRATE 2021-0 Yes [id number] Take 1 Univers 145 mg 9-27 tablet by ity of tablet 00:00: mouth once daily Medical Branch FENOFIBRATE 2021-0 Yes [id number] Take 1 Univers 145 mg 9-27 tablet by ity of tablet 00:00: mouth once daily Medical Branch FENOFIBRATE 2021-0 Yes [id number] Take 1 Univers 145 mg 9-27 tablet by ity of tablet 00:00: mouth once daily Medical Branch FENOFIBRATE 2021-0 Yes [id number] Take 1 Univers 145 mg 9-27 tablet by ity of tablet 00:00: mouth once Medical Branch FENOFIBRATE 2021-0 2021- No [id number] Take 1 Univers 145 mg 9-27 11-02 tablet by ity of tablet 00:00: 00:00 mouth once [facility] 00 :00 daily Medical Branch glipiZIDE 5 2021-0 Yes [id number] TAKE 1 Univers mg tablet 9-26 TABLET BY ity o f 00:00: MOUTH TWICE Medical DAILY Branch BEFORE BREAKFAST AND BEFORE SUPPER glipiZIDE 5 2021-0 Yes [id number] TAKE 1 Univers mg tablet 9-26 TABLET BY ity o f 00:00: MOUTH TWICE Medical DAILY Branch BEFORE BREAKFAST AND BEFORE SUPPER glipiZIDE 5 2021-0 Yes [id number] TAKE 1 Univers mg tablet 9-26 TABLET BY ity o f 00:00: MOUTH TWICE Medical DAILY Branch BEFORE BREAKFAST AND BEFORE SUPPER glipiZIDE 5 Yes [id number] TAKE 1 Univers mg tablet 9-26 TABLET BY ity o f 00:00: MOUTH [place] 00 TWICE Medical DAILY Branch BEFORE BREAKFAST AND BEFORE SUPPER glipiZIDE 5 Yes [id number] TAKE 1 Univers mg tablet 9-26 TABLET BY ity o f 00:00: MOUTH [place] 00 TWICE Medical DAILY Branch BEFORE BREAKFAST AND BEFORE SUPPER glipiZIDE 5 Yes [id number] TAKE 1 Univers mg tablet 9-26 TABLET BY ity o f 00:00: MOUTH [place] TWICE Medical DAILY Branch BEFORE BREAKFAST AND BEFORE SUPPER glipiZIDE 5 Yes [id number] TAKE 1 Univers mg tablet 9-26 TABLET BY ity o f 00:00: MOUTH [place] TWICE Medical DAILY Branch BEFORE BREAKFAST AND BEFORE SUPPER glipiZIDE 5 Yes [id number] TAKE 1 Univers mg tablet 9-26 TABLET BY ity o f 00:00: MOUTH [place] TWICE Medical DAILY Branch BEFORE BREAKFAST AND BEFORE SUPPER glipiZIDE 5 Yes [id number] TAKE 1 Univers mg tablet 9-26 TABLET BY ity o f 00:00: MOUTH [place] TWICE Medical DAILY Branch BEFORE BREAKFAST AND BEFORE SUPPER glipiZIDE 5 Yes [id number] TAKE 1 Univers mg tablet 9-26 TABLET BY ity o f 00:00: MOUTH [place] TWICE Medical DAILY Branch BEFORE BREAKFAST AND BEFORE SUPPER glipiZIDE 5 Yes [id number] TAKE 1 Univers mg tablet 9-26 TABLET BY ity o f 00:00: MOUTH [place] TWICE Medical DAILY Branch BEFORE BREAKFAST AND BEFORE SUPPER TAMSULOSIN Yes [id number] Take 1 Univers 0.4 mg 24 9-26 9102 capsule by ity of hr capsule 00:00: mouth once [place] daily Medical Branch glipiZIDE 5 Yes [id number] TAKE 1 Univers mg tablet 9-26 TABLET BY ity o f 00:00: MOUTH [place] 00 TWICE Medical DAILY Branch BEFORE BREAKFAST AND BEFORE SUPPER TAMSULOSIN Yes [id number] Take 1 Univers 0.4 mg 24 9-26 9102 capsule by ity of hr capsule 00:00: mouth once [place] 00 daily Medical Branch glipiZIDE 5 Yes [id number] TAKE 1 Univers mg tablet 9-26 TABLET BY ity o f 00:00: MOUTH TWICE Medical DAILY Branch BEFORE BREAKFAST AND BEFORE SUPPER TAMSULOSIN Yes [id number] Take 1 Univers 0.4 mg 24 9-26 9102 capsule by ity of hr capsule 00:00: mouth once [place] daily Medical Branch glipiZIDE 5 0 Yes [id number] TAKE 1 Univers mg tablet 9-26 TABLET BY ity o f 00:00: MOUTH TWICE Medical DAILY Branch BEFORE BREAKFAST AND BEFORE SUPPER TAMSULOSIN Yes [id number] Take 1 Univers 0.4 mg 24 9-26 9102 capsule by ity of hr capsule 00:00: mouth once [place] daily Medical Branch glipiZIDE 5 Yes [id number] TAKE 1 Univers mg tablet 9-26 TABLET BY ity o f 00:00: MOUTH TWICE Medical DAILY Branch BEFORE BREAKFAST AND BEFORE SUPPER TAMSULOSIN Yes [id number] Take 1 Univers 0.4 mg 24 9-26 9102 capsule by ity of hr capsule 00:00: mouth once [place] daily Medical Branch glipiZIDE 5 Yes [id number] TAKE 1 Univers mg tablet 9-26 TABLET BY ity o f 00:00: MOUTH TWICE Medical DAILY Branch BEFORE BREAKFAST AND BEFORE SUPPER TAMSULOSIN Yes [id number] Take 1 Univers 0.4 mg 24 9-26 9102 capsule by ity of hr capsule 00:00: mouth once [place] daily Medical Branch glipiZIDE 5 Yes [id number] TAKE 1 Univers mg tablet 9-26 TABLET BY ity o f 00:00: MOUTH TWICE Medical DAILY Branch BEFORE BREAKFAST AND BEFORE SUPPER TAMSULOSIN Yes [id number] Take 1 Univers 0.4 mg 24 9-26 9102 capsule by ity of hr capsule 00:00: mouth once [place] daily Medical Branch glipiZIDE 5 Yes [id number] TAKE 1 Univers mg tablet 9-26 TABLET BY ity o f 00:00: MOUTH TWICE Medical DAILY Branch BEFORE BREAKFAST AND BEFORE SUPPER TAMSULOSIN Yes [id number] Take 1 Univers 0.4 mg 24 9-26 9102 capsule by ity of hr capsule 00:00: mouth once [place] daily Medical Branch glipiZIDE 5 Yes [id number] TAKE 1 Univers mg tablet 9-26 TABLET BY ity o f 00:00: MOUTH TWICE Medical DAILY Branch BEFORE BREAKFAST AND BEFORE SUPPER TAMSULOSIN Yes [id number] Take 1 Univers 0.4 mg 24 9- 9102 capsule by ity of hr capsule 00:00: mouth once [place] daily Medical Branch glipiZIDE 5 Yes [id number] TAKE 1 Univers mg tablet 9-26 TABLET BY ity o f 00:00: MOUTH TWICE Medical DAILY Branch BEFORE BREAKFAST AND BEFORE SUPPER TAMSULOSIN Yes [id number] Take 1 Univers 0.4 mg 24 - 9102 capsule by ity of hr capsule 00:00: mouth once [place] daily Medical Branch glipiZIDE 5 Yes [id number] TAKE 1 Univers mg tablet 9-26 TABLET BY ity o f 00:00: MOUTH TWICE Medical DAILY Branch BEFORE BREAKFAST AND BEFORE SUPPER TAMSULOSIN Yes [id number] Take 1 Univers 0.4 mg 24 - 9102 capsule by ity of hr capsule 00:00: mouth once [place] daily Medical Branch glipiZIDE 5 Yes [id number] TAKE 1 Univers mg tablet 9-26 TABLET BY ity o f 00:00: MOUTH TWICE Medical DAILY Branch BEFORE BREAKFAST AND BEFORE SUPPER TAMSULOSIN Yes [id number] Take 1 Univers 0.4 mg 24 9- 9102 capsule by ity of hr capsule 00:00: mouth once [place] daily Medical Branch glipiZIDE 5 Yes [id number] TAKE 1 Univers mg tablet 9-26 TABLET BY ity o f 00:00: MOUTH TWICE Medical DAILY Branch BEFORE BREAKFAST AND BEFORE SUPPER TAMSULOSIN Yes [id number] Take 1 Univers 0.4 mg 24 9-26 9102 capsule by ity of hr capsule 00:00: mouth once [place] daily Medical Branch glipiZIDE 5 Yes [id number] TAKE 1 Univers mg tablet 9-26 TABLET BY ity o f 00:00: MOUTH TWICE Medical DAILY Branch BEFORE BREAKFAST AND BEFORE SUPPER TAMSULOSIN Yes [id number] Take 1 Univers 0.4 mg 24 11-28 9102 capsule by ity of hr capsule 00:00: mouth once [place] daily Medical Branch glipiZIDE 5 Yes [id number] TAKE 1 Univers mg tablet 11-28 TABLET BY ity o f 00:00: MOUTH [place] TWICE Medical DAILY Branch BEFORE BREAKFAST AND BEFORE SUPPER glipiZIDE 5 2021- No [id number] TAKE 1 Univers mg tablet 11-28 TABLET BY ity of 00:00: 00:00 MOUTH [place] 00 :00 TWICE Medical DAILY Branch BEFORE BREAKFAST AND BEFORE SUPPER glipiZIDE 5 2021- No [id number] TAKE 1 Univers mg tablet 11-28 TABLET BY ity of 00:00: 00:00 MOUTH [place] 00 :00 TWICE Medical DAILY Branch BEFORE BREAKFAST AND BEFORE SUPPER glipiZIDE 5 2021- No [id number] TAKE 1 Univers mg tablet 11-28 TABLET BY ity of 00:00: 00:00 MOUTH [place] 00 :00 TWICE Medical DAILY Branch BEFORE BREAKFAST AND BEFORE SUPPER glipiZIDE 5 2021- No [id number] TAKE 1 Univers mg tablet 11-28 TABLET BY ity of 00:00: 00:00 MOUTH [place] 00 :00 TWICE Medical DAILY Branch BEFORE BREAKFAST AND BEFORE SUPPER TAMSULOSIN 2021- No [id number] Take 1 Univers 0.4 mg 24 11-28 9102 capsule by ity of hr capsule 00:00: 00:00 mouth once [place] 00 :00 daily Medical Branch ferrous Yes [id number] 325mg Take 1 Un cecelia sulfate 325 8-25 tablet by ity of mg (65 mg 00:00: mouth [place] iron) 00 every Medical tablet other day. Branch ferrous Yes [id number] 325mg Take 1 Un [place] sulfate 325 8-25 tablet by ity of mg (65 mg 00:00: mouth [place] iron) 00 every Medical tablet other day. Branch ferrous Yes [id number] 325mg Take 1 Un [place]ec[place] sulfate 325 8-25 tablet by ity of mg (65 mg 00:00: mouth [place] iron) 00 every Medical tablet other day. Branch ferrous 2021-0 Yes [id number] 325mg Take 1 Un [place]ec[place] sulfate 325 8-25 tablet by ity of mg (65 mg 00:00: mouth [place] iron) 00 every Medical tablet other day. Branch ferrous 2021-0 Yes [id number] 325mg Take 1 Un [place]ec[place] sulfate 325 8-25 tablet by ity of mg (65 mg 00:00: mouth [place] iron) 00 every Medical tablet other day. Branch ferrous 2021-0 Yes [id number] 325mg Take 1 Un [place]ec[place] sulfate 325 8-25 tablet by ity of mg (65 mg 00:00: mouth [place] iron) 00 every Medical tablet other day. Branch ferrous 0 Yes [id number] 325mg Take 1 Un [place]ec[place] sulfate 325 8-25 tablet by ity of mg (65 mg 00:00: mouth [place] iron) 00 every Medical tablet other day. Branch ferrous 2021-0 Yes [id number] 325mg Take 1 Un [place]ec[place] sulfate 325 8-25 tablet by ity of mg (65 mg 00:00: mouth [place] iron) 00 every Medical tablet other day. Branch ferrous 0 Yes [id number] 325mg Take 1 Un cecelia sulfate 325 8-25 tablet by ity of mg (65 mg 00:00: mouth [place] iron) 00 every Medical tablet other day. Branch ferrous 0 Yes [id number] 325mg Take 1 Un cecelia sulfate 325 8-25 tablet by ity of mg (65 mg 00:00: mouth [place] iron) 00 every Medical tablet other day. Branch ferrous 2021-0 Yes [id number] 325mg Take 1 Un cecelia sulfate 325 8-25 tablet by ity of mg (65 mg 00:00: mouth [place] iron) 00 every Medical tablet other day. Branch ferrous 2021-0 Yes [id number] 325mg Take 1 Un cecelia sulfate 325 8-25 tablet by ity of mg (65 mg 00:00: mouth [place] iron) 00 every Medical tablet other day. Branch ferrous 2021-0 Yes [id number] 325mg Take 1 Un cecelia sulfate 325 8-25 tablet by ity of mg (65 mg 00:00: mouth [place] iron) 00 every Medical tablet other day. Branch ferrous 2021-0 Yes [id number] 325mg Take 1 Un cecelia sulfate 325 8-25 tablet by ity of mg (65 mg 00:00: mouth [place] iron) 00 every Medical tablet other day. Branch ferrous 0 Yes [id number] 325mg Take 1 Un cecelia sulfate 325 8-25 tablet by ity of mg (65 mg 00:00: mouth [place] iron) 00 every Medical tablet other day. Branch ferrous 0 Yes [id number] 325mg Take 1 Un cecelia sulfate 325 8-25 tablet by ity of mg (65 mg 00:00: mouth [place] iron) 00 every Medical tablet other day. Branch ferrous 0 Yes [id number] 325mg Take 1 Un cecelia sulfate 325 8-25 tablet by ity of mg (65 mg 00:00: mouth [place] iron) 00 every Medical tablet other day. Branch ferrous 0 Yes [id number] 325mg Take 1 Un cecelia sulfate 325 8-25 tablet by ity of mg (65 mg 00:00: mouth [place] iron) 00 every Medical tablet other day. Branch ferrous 0 Yes [id number] 325mg Take 1 Un cecelia sulfate 325 8-25 tablet by ity of mg (65 mg 00:00: mouth [place] iron) 00 every Medical tablet other day. Branch ferrous 0 Yes [id number] 325mg Take 1 Un cecelia sulfate 325 8-25 tablet by ity of mg (65 mg 00:00: mouth [place] iron) 00 every Medical tablet other day. Branch ferrous 0 Yes [id number] 325mg Take 1 Un cecelia sulfate 325 8-25 tablet by ity of mg (65 mg 00:00: mouth [place] iron) 00 every Medical tablet other day. Branch ferrous 0 Yes [id number] 325mg Take 1 Un cecelia sulfate 325 8-25 tablet by ity of mg (65 mg 00:00: mouth [place] iron) 00 every Medical tablet other day. Branch ferrous 0 Yes [id number] 325mg Take 1 Un cecelia sulfate 325 8-25 tablet by ity of mg (65 mg 00:00: mouth [place] iron) 00 every Medical tablet other day. Branch ferrous 2021-0 Yes [id number] 325mg Take 1 Un cecelia sulfate 325 8-25 tablet by ity of mg (65 mg 00:00: mouth [place] iron) 00 every Medical tablet other day. Branch ferrous 2021-0 Yes [id number] 325mg Take 1 Un cecelia sulfate 325 8-25 tablet by ity of mg (65 mg 00:00: mouth [place] iron) 00 every Medical tablet other day. Branch ferrous 0 Yes [id number] 325mg Take 1 Un cecelia sulfate 325 8-25 tablet by ity of mg (65 mg 00:00: mouth [place] iron) 00 every Medical tablet other day. Branch ferrous 2021-0 Yes [id number] 325mg Take 1 Un cecelia sulfate 325 8-25 tablet by ity of mg (65 mg 00:00: mouth [place] iron) 00 every Medical tablet other day. Branch ferrous 0 Yes [id number] 325mg Take 1 Un cecelia sulfate 325 8-25 tablet by ity of mg (65 mg 00:00: mouth [place] iron) 00 every Medical tablet other day. Branch ferrous 0 Yes [id number] 325mg Take 1 Un cecelia sulfate 325 8-25 tablet by ity of mg (65 mg 00:00: mouth [place] iron) 00 every Medical tablet other day. Branch ferrous 2021-0 Yes [id number] 325mg Take 1 Un cecelia sulfate 325 8-25 tablet by ity of mg (65 mg 00:00: mouth [place] iron) 00 every Medical tablet other day. Branch ferrous 2021-0 Yes [id number] 325mg Take 1 Un cecelia sulfate 325 8-25 tablet by ity of mg (65 mg 00:00: mouth [place] iron) 00 every Medical tablet other day. Branch ferrous 2021-0 Yes [id number] 325mg Take 1 Un cecelia sulfate 325 8-25 tablet by ity of mg (65 mg 00:00: mouth [place] iron) 00 every Medical tablet other day. Branch ferrous 2021-0 Yes [id number] 325mg Take 1 Un cecelia sulfate 325 8-25 tablet by ity of mg (65 mg 00:00: mouth [place] iron) 00 every Medical tablet other day. Branch ferrous 2021-0 Yes [id number] 325mg Take 1 Un cecelia sulfate 325 8-25 tablet by ity of mg (65 mg 00:00: mouth [place] iron) 00 every Medical tablet other day. Branch ferrous 2021-0 Yes [id number] 325mg Take 1 Un cecelia sulfate 325 8-25 tablet by ity of mg (65 mg 00:00: mouth [place] iron) 00 every Medical tablet other day. Branch ferrous 2021-0 Yes [id number] 325mg Take 1 Un cecelia sulfate 325 8-25 tablet by ity of mg (65 mg 00:00: mouth [place] iron) 00 every Medical tablet other day. Branch ferrous 2021-0 Yes [id number] 325mg Take 1 Un cecelia sulfate 325 8-25 tablet by ity of mg (65 mg 00:00: mouth [place] iron) 00 every Medical tablet other day. Branch ferrous 2021-0 Yes [id number] 325mg Take 1 Un cecelia sulfate 325 8-25 tablet by ity of mg (65 mg 00:00: mouth [place] iron) 00 every Medical tablet other day. Branch ferrous 0 Yes [id number] 325mg Take 1 Un cecelia sulfate 325 8-25 tablet by ity of mg (65 mg 00:00: mouth [place] iron) 00 every Medical tablet other day. Branch ferrous 2021-0 Yes [id number] 325mg Take 1 Un cecelia sulfate 325 8-25 tablet by ity of mg (65 mg 00:00: mouth [place] iron) 00 every Medical tablet other day. Branch ferrous 0 Yes [id number] 325mg Take 1 Un cecelia sulfate 325 8-25 tablet by ity of mg (65 mg 00:00: mouth [place] iron) 00 every Medical tablet other day. Branch ferrous 2021-0 Yes [id number] 325mg Take 1 Un cecelia sulfate 325 8-25 tablet by ity of mg (65 mg 00:00: mouth [place] iron) 00 every Medical tablet other day. Branch ferrous 2021-0 Yes [id number] 325mg Take 1 Un cecelia sulfate 325 8-25 tablet by ity of mg (65 mg 00:00: mouth [place] iron) 00 every Medical tablet other day. Branch ferrous 2021-0 Yes [id number] 325mg Take 1 Un cecelia sulfate 325 8-25 tablet by ity of mg (65 mg 00:00: mouth [place] iron) 00 every Medical tablet other day. Branch ferrous 2021-0 Yes [id number] 325mg Take 1 Un cecelia sulfate 325 8-25 tablet by ity of mg (65 mg 00:00: mouth [place] iron) 00 every Medical tablet other day. Branch ferrous 2021-0 Yes [id number] 325mg Take 1 Un cecelia sulfate 325 8-25 tablet by ity of mg (65 mg 00:00: mouth [place] iron) 00 every Medical tablet other day. Branch ferrous 2021-0 Yes [id number] 325mg Take 1 Un cecelia sulfate 325 8-25 tablet by ity of mg (65 mg 00:00: mouth [place] iron) 00 every Medical tablet other day. Branch ferrous 2021-0 Yes [id number] 325mg Take 1 Un cecelia sulfate 325 8-25 tablet by ity of mg (65 mg 00:00: mouth [place] iron) 00 every Medical tablet other day. Branch ferrous 0 Yes [id number] 325mg Take 1 Un cecelia sulfate 325 8-25 tablet by ity of mg (65 mg 00:00: mouth [place] iron) 00 every Medical tablet other day. Branch ferrous 0 Yes [id number] 325mg Take 1 Un cecelia sulfate 325 8-25 tablet by ity of mg (65 mg 00:00: mouth [place] iron) 00 every Medical tablet other day. Branch ferrous 2021-0 Yes [id number] 325mg Take 1 Un cecelia sulfate 325 8-25 tablet by ity of mg (65 mg 00:00: mouth [place] iron) 00 every Medical tablet other day. Branch ferrous 0 Yes [id number] 325mg Take 1 Un cecelia sulfate 325 8-25 tablet by ity of mg (65 mg 00:00: mouth [place] iron) 00 every Medical tablet other day. Branch ferrous 2021-0 Yes [id number] 325mg Take 1 Un cecelia sulfate 325 8-25 tablet by ity of mg (65 mg 00:00: mouth [place] iron) 00 every Medical tablet other day. Branch ferrous 2021-0 Yes [id number] 325mg Take 1 Un cecelia sulfate 325 8-25 tablet by ity of mg (65 mg 00:00: mouth [place] iron) 00 every Medical tablet other day. Branch ferrous 2021-0 Yes [id number] 325mg Take 1 Un cecelia sulfate 325 8-25 tablet by ity of mg (65 mg 00:00: mouth [place] iron) 00 every Medical tablet other day. Branch ferrous 2021-0 Yes [id number] 325mg Take 1 Un cecelia sulfate 325 8-25 tablet by ity of mg (65 mg 00:00: mouth [place] iron) 00 every Medical tablet other day. Branch ferrous 2022-0 Yes [id number] 325mg Take 1 Un cecelia sulfate 325 8-25 tablet by ity of mg (65 mg 00:00: mouth [place] iron) 00 every Medical tablet other day. Branch ferrous 0 Yes [id number] 325mg Take 1 Un cecelia sulfate 325 8-25 tablet by ity of mg (65 mg 00:00: mouth [place] iron) 00 every Medical tablet other day. Branch ferrous 2021- No [id number] 325mg Take 1 U nivers sulfate 325 8-25 08-24 tablet by it y of mg (65 mg 00:00: 00:00 mouth [place] iron) 00 :00 every Medical tablet other day. Branch FLUoxetine Yes [id number] 60mg Take 3 [facility] 20 mg 8-24 capsules ity of capsule 00:00: by mouth in the Medical morning. Branch LORazepam 1 Yes [id number] 1mg Take 1 [facility] mg tablet 8-24 tablet by ity o f 00:00: mouth (two) Medical times Branch daily as needed for Anxiety or Agitation. amLODIPine Yes [id number] 10mg Take 1 U nivers 10 mg 8-24 tablet by ity of tablet 00:00: mouth in 00 the Medical morning. Branch FLUoxetine 0 Yes [id number] 60mg Take 3 [facility] 20 mg 8-24 capsules ity of capsule 00:00: by mouth in the Medical morning. Branch LORazepam 1 Yes [id number] 1mg Take 1 [facility] mg tablet 8-24 tablet by ity o f 00:00: mouth (two) Medical times Branch daily as needed for Anxiety or Agitation. amLODIPine 0 Yes [id number] 10mg Take 1 U nivers 10 mg 8-24 tablet by ity of tablet 00:00: mouth in [place] 00 the Medical morning. Branch FLUoxetine 0 Yes [id number] 60mg Take 3 [facility] 20 mg 8-24 capsules ity of capsule 00:00: by mouth in the Medical morning. Branch LORazepam 1 Yes [id number] 1mg Take 1 [facility] mg tablet 8-24 tablet by ity o f 00:00: mouth 2 (two) Medical times Branch daily as needed for Anxiety or Agitation. amLODIPine 2022-0 Yes [id number] 10mg Take 1 U nivers 10 mg 8-24 tablet by ity of tablet 00:00: mouth in [place] 00 the Medical morning. Branch FLUoxetine 2021-0 Yes [id number] 60mg Take 3 [facility] 20 mg 8-24 capsules ity of capsule 00:00: by mouth in the Medical morning. Branch LORazepam 1 2021-0 Yes [id number] 1mg Take 1 [facility] mg tablet 8-24 tablet by ity o f 00:00: mouth 2 [place] (two) Medical times [place] daily as needed for Anxiety or Agitation. amLODIPine 2021-0 Yes [id number] 10mg Take 1 U nivers 10 mg 8-24 tablet by ity of tablet 00:00: mouth in [place] 00 the Medical morning. Branch FLUoxetine 2021-0 Yes [id number] 60mg Take 3 [facility] 20 mg 8-24 capsules ity of capsule 00:00: by mouth [place] in the Medical morning. Branch LORazepam 1 2021-0 Yes [id number] 1mg Take 1 [facility] mg tablet 8-24 tablet by ity o f 00:00: mouth 2 [place] (two) Medical times [place] daily as needed for Anxiety or Agitation. amLODIPine 2021-0 Yes [id number] 10mg Take 1 U nivers 10 mg 8-24 tablet by ity of tablet 00:00: mouth in [place] the Medical morning. Branch FLUoxetine 2021-0 Yes [id number] 60mg Take 3 [facility] 20 mg 8-24 capsules ity of capsule 00:00: by mouth [place] in the Medical morning. Branch LORazepam 1 2021-0 Yes [id number] 1mg Take 1 [facility] mg tablet 8-24 tablet by ity o f 00:00: mouth 2 [place] (two) Medical times [place] daily as needed for Anxiety or Agitation. amLODIPine 2021-0 Yes [id number] 10mg Take 1 U nivers 10 mg 8-24 tablet by ity of tablet 00:00: mouth in [place] 00 the Medical morning. Branch FLUoxetine 2021-0 Yes [id number] 60mg Take 3 [facility] 20 mg 8-24 capsules ity of capsule 00:00: by mouth [place] in the Medical morning. Branch LORazepam 1 2021-0 Yes [id number] 1mg Take 1 [facility] mg tablet 8-24 tablet by ity o f 00:00: mouth 2 (two) Medical times Branch daily as needed for Anxiety or Agitation. amLODIPine 2021-0 Yes [id number] 10mg Take 1 U nivers 10 mg 8-24 tablet by ity of tablet 00:00: mouth in [place] 00 the Medical morning. Branch FLUoxetine 2021-0 Yes [id number] 60mg Take 3 [facility] 20 mg 8-24 capsules ity of capsule 00:00: by mouth in the Medical morning. Branch LORazepam 1 2021-0 Yes [id number] 1mg Take 1 [facility] mg tablet 8-24 tablet by ity o f 00:00: mouth 2 (two) Medical times Branch daily as needed for Anxiety or Agitation. amLODIPine 2021-0 Yes [id number] 10mg Take 1 U nivers 10 mg 8-24 tablet by ity of tablet 00:00: mouth in [place] the Medical morning. Branch FLUoxetine 2021-0 Yes [id number] 60mg Take 3 [facility] 20 mg 8-24 capsules ity of capsule 00:00: by mouth [place] in the Medical morning. Branch LORazepam 1 2021-0 Yes [id number] 1mg Take 1 [facility] mg tablet 8-24 tablet by ity o f 00:00: mouth (two) Medical times Branch daily as needed for Anxiety or Agitation. amLODIPine 2021-0 Yes [id number] 10mg Take 1 U nivers 10 mg 8-24 tablet by ity of tablet 00:00: mouth in [place] the Medical morning. Branch FLUoxetine 2021-0 Yes [id number] 60mg Take 3 [facility] 20 mg 8-24 capsules ity of capsule 00:00: by mouth [place] in the Medical morning. Branch LORazepam 1 2021-0 Yes [id number] 1mg Take 1 [facility] mg tablet 8-24 tablet by ity o f 00:00: mouth (two) Medical times Branch daily as needed for Anxiety or Agitation. amLODIPine 2021-0 Yes [id number] 10mg Take 1 U nivers 10 mg 8-24 tablet by ity of tablet 00:00: mouth in [place] the Medical morning. Branch FLUoxetine 2021-0 Yes [id number] 60mg Take 3 [facility] 20 mg 8-24 capsules ity of capsule 00:00: by mouth [place] in the Medical morning. Branch LORazepam 1 2021-0 Yes [id number] 1mg Take 1 [facility] mg tablet 8-24 tablet by ity o f 00:00: mouth (two) Medical times [place] daily as needed for Anxiety or Agitation. amLODIPine 2021-0 Yes [id number] 10mg Take 1 U nivers 10 mg 8-24 tablet by ity of tablet 00:00: mouth in 00 the Medical morning. Branch FLUoxetine 2021-0 Yes [id number] 60mg Take 3 [facility] 20 mg 8-24 capsules ity of capsule 00:00: by mouth in the Medical morning. Branch LORazepam 1 2021-0 Yes [id number] 1mg Take 1 [facility] mg tablet 8-24 tablet by ity o f 00:00: mouth (two) Medical times [place] daily as needed for Anxiety or Agitation. FLUoxetine 2021-0 Yes [id number] 60mg Take 3 [facility] 20 mg 8-24 capsules ity of capsule 00:00: by mouth in the Medical morning. Branch LORazepam 1 2021-0 Yes [id number] 1mg Take 1 [facility] mg tablet 8-24 tablet by ity o f 00:00: mouth (two) Medical times [place] daily as needed for Anxiety or Agitation. FLUoxetine 2021-0 Yes [id number] 60mg Take 3 [facility] 20 mg 8-24 capsules ity of capsule 00:00: by mouth in the Medical morning. Branch LORazepam 1 2021-0 Yes [id number] 1mg Take 1 [facility] mg tablet 8-24 tablet by ity o f 00:00: mouth (two) Medical times [place] daily as needed for Anxiety or Agitation. FLUoxetine 2021-0 Yes [id number] 60mg Take 3 [facility] 20 mg 8-24 capsules ity of capsule 00:00: by mouth in the Medical morning. Branch LORazepam 1 2021-0 Yes [id number] 1mg Take 1 [facility] mg tablet 8-24 tablet by ity o f 00:00: mouth (two) Medical times [place] daily as needed for Anxiety or Agitation. FLUoxetine 2021-0 Yes [id number] 60mg Take 3 [facility] 20 mg 8-24 capsules ity of capsule 00:00: by mouth in the Medical morning. Branch LORazepam 1 2021-0 Yes [id number] 1mg Take 1 [facility] mg tablet 8-24 tablet by ity o f 00:00: mouth 2 (two) Medical times Branch daily as needed for Anxiety or Agitation. LORazepam 1 2021-0 Yes [id number] 1mg Take 1 [facility] mg tablet 8-24 tablet by ity o f 00:00: mouth 2 (two) Medical times Branch daily as needed for Anxiety or Agitation. LORazepam 1 2021-0 Yes [id number] 1mg Take 1 [facility] mg tablet 8-24 tablet by ity o f 00:00: mouth 2 [place] (two) Medical times Branch daily as needed for Anxiety or Agitation. LORazepam 1 2021-0 Yes [id number] 1mg Take 1 [facility] mg tablet 8-24 tablet by ity o f 00:00: mouth [place] (two) Medical times Branch daily as needed for Anxiety or Agitation. LORazepam 1 2021-0 Yes [id number] 1mg Take 1 [facility] mg tablet 8-24 tablet by ity o f 00:00: mouth 2 [place] (two) Medical times Branch daily as needed for Anxiety or Agitation. LORazepam 1 2021- No [id number] 1mg Take 1 [facility] mg tablet 8-24 -02 tablet by ity of 00:00: 00:00 mouth 2 [place] 00 :00 (two) Medical times Branch daily as needed for Anxiety or Agitation. FLUoxetine 2021-2021- No [id number] 60mg Take 3 [facility] 20 mg 8-24 10-20 capsules ity of capsule 00:00: 00:00 by mouth [place] 00 :00 in the Medical morning. Branch amLODIPine 2021-0 2021- No [id number] 10mg Take 1 [facility] 10 mg 8-24 09-30 tablet by ity of tablet 00:00: 00:00 mouth in [place] 00 :00 the Medical morning. Branch amLODIPine 2021-0 2- No [id number] 10mg Take 1 [facility] 10 mg 8-24 09-30 tablet by ity of tablet 00:00: 00:00 mouth in [place] 00 :00 the Medical morning. Branch amLODIPine 2021-0 2021- No [id number] 10mg Take 1 [facility] 10 mg 8-24 09-30 tablet by ity of tablet 00:00: 00:00 mouth in [place] 00 :00 the Medical morning. Branch amLODIPine 2021-0 2021- No [id number] 10mg Take 1 [facility] 10 mg 10-26 tablet by ity of tablet 00:00: 00:00 mouth in [place] 00 :00 the Medical morning. Branch amLODIPine 2021- No [id number] 10mg Take 2 [facility] 5 mg tablet 10-26 tablets by i ty of 00:00: 00:00 mouth in [place] 00 :00 the Medical morning. Branch insulin Yes 6U 6 Units, Univer s lispro 10-25 Subcutaneo ity of (human) 12:30: us, TIDAC, [place] (HumaLOG 00 First dose Medic al U-100) (after Branch injection 6 last Units modificati on) on Sun10/25/21 at 0730, Until Discontinu ed, Routine melatonin 2021- No 3mg 3 mg, Univer s (MELATIN) 10-25 Oral, ity of tablet 3 mg 03:45: 03:44 ONCE, 1 [place] 00 :[place] dose, On Medical Sun [place] 10/24/21 at 2245, Routine insulin Yes 13U 13 Units, Unive rs glargine 10-25 Subcutaneo ity o f (LANTUS 02:00: us, QHS, [place] U-100) 00 First dose Medical injection (after Branch 13 Units last modificati on) on Sun10/24/21 at 2100, Until Discontinu ed, Routine amLODIPine 2021- No [id number] 10mg Take 2 [facility] 5 mg tablet 10-25 tablets by i ty of 00:00: 00:00 mouth in [place] 00 :00 the Medical morning. Branch FLUoxetine 2021- No [id number] 60mg Take 3 [facility] 20 mg 10-25 capsules ity of capsule 00:00: 00:00 by mouth [place] 00 :00 in the Medical morning. Branch LORazepam 1 2021- No [id number] 1mg Take 1 [facility] mg tablet 10-25 tablet by ity of 00:00: 00:00 mouth 2 [place] 00 :00 (two) Medical times Branch daily as needed for Anxiety or Agitation. insulin 2021- No 5U 5 Units, Unive rs lispro 10-24 Subcutaneo ity of (human) 16:30: 23:16 us, TIDAC, [place] (HumaLOG 00 :43 First dose Medic al U-100) (after Branch injection 5 last Units modificati on) on Sun10/24/21 at 1130, Until Discontinu ed, Routine lisinopriL 2021- No 5mg 5 mg, Unive rs (PRINIVIL,Z 10-24 Oral, ity of ESTRIL) 14:00: 20:07 DAILY, [place] tablet 5 mg 00 :29 First dose Me dical on [facility] 10/24/21 at 0900, Until Discontinu ed, Routine insulin 2021- No 3U 3 Units, Unive rs lispro 10-23 Subcutaneo ity of (human) 16:30: 12:38 us, TIDAC, [place] (HumaLOG 00 :49 First dose Medic al U-100) on [place] Branch injection 3 10/23/21 at Units 1130, Until Discontinu ed, Routine carvediloL Yes 6.25mg 6.25 mg, U nivers (COREG) 10-23 Oral, BID ity of tablet 6.25 13:00: MEALS, [place] mg 00 First dose Medical on [facility] 10/23/21 at 0800, Until Discontinu ed, Routine hydrALAZINE 2021- No 10mg 10 mg, Uni vers (APRESOLINE 10-23 Oral, ity of ) tablet 10 07:00: 06:24 ONCE, 1 [place] mg 00 :00 dose, On [facility] 10/23/21 at 0200, Routine amLODIPine Yes 10mg 10 mg, Unive rs (NORVASC) 10-23 Oral, QHS, ity of tablet 10 02:00: First dose [place] mg 00 (after Medical last Branch modificati on) on Sun10/22/21 at 2100, Until Discontinu ed, Routine ferrous Yes 325mg 325 mg, Univer s sulfate 10-21 Oral, Q ity of tablet 325 21:28: OTHERDAY, [place] mg 00 First dose Medical (after Branch last modificati on) on Sun10/21/21 at 1630, Until Discontinu ed, Routine ferrous 2021-0 Yes 325mg 325 mg, Univer s sulfate 8-19 Oral, Q ity of tablet 325 21:28: OTHERDAY, [place] mg 00 First dose Medical (after Branch last modificati on) on Sun10/21/21 at 1630, Until Discontinu ed, Routine FLUoxetine 2021-0 Yes 60mg 60 mg, Unive rs (PROZAC) 8-19 Oral, ity of capsule 60 14:00: DAILY, [place] mg 00 First dose Medical (after Branch last modificati on) on Sun10/21/21 at 0900, Until Discontinu ed, Routine FLUoxetine 2021-0 Yes 60mg 60 mg, Unive rs (PROZAC) 8-19 Oral, ity of capsule 60 14:00: DAILY, [place] mg 00 First dose Medical (after Branch last modificati on) on Sun10/21/21 at 0900, Until Discontinu ed, Routine ferrous 2021-0 2021- No 325mg 325 mg, Unive rs sulfate 10-19 08-18 Oral, TID ity of tablet 325 22:00: 04:47 MEALS, [place] mg 00 :44 First dose Medical on Sun10/19/21 at 1700, Until Discontinu ed, Routine simethicone 2021-0 Yes 80mg 80 mg, Univ ers (GAS RELIEF 8-17 Oral, ity of (SIMETHICON 21:32: BIDPRN, [place] E)) 45 Starting Medical chewable on Sun tablet 80 10/19/21 at mg 1632, Until Discontinu ed, Routine, Gas simethicone 2021-0 Yes 80mg 80 mg, Univ ers (GAS RELIEF 8-17 Oral, ity of (SIMETHICON 21:32: BIDPRN, [place] E)) 45 Starting Medical chewable on Sun Branch tablet 80 10/19/21 at mg 1632, Until Discontinu ed, Routine, Gas insulin 2021-0 Yes 10U 10 Units, Unive rs glargine 8-15 Subcutaneo ity o f (LANTUS 02:00: , [facility], [place] U-100) 00 First dose Medical injection on Sun Branch 10 Units 10/16/21 at 2100, Until Discontinu ed, Routine insulin 2022-0 2022- No 10U 10 Units, Univ ers glargine 10-17 Subcutaneo ity of (LANTUS 02:00: 12:38 us, [facility], [place] U-100) 00 :49 First dose Medical injection on Sun Branch 10 Units 10/16/21 at 2100, Until Discontinu ed, Routine epoetin Yes [id number] 10,000 Univer s samanta-epbx 8-13 Units, ity of (RETACRIT) 01:00: [place]cut[place] injection 00 us, Medical 10,000 QMON/WED/F Branch Units RI AT 1999, First dose on Sun10/14/21 at 1999, Until Discontinu ed, Routine
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 Restricted medication : JOHN DIEGO Robert ergocalcife Yes [id number] 50,000 Un cecelia rol 8-11 Units, ity of (vitamin 14:55: Oral, [place] d2) 32 QWEEKLY, Medical (CALCIFEROL First dose Br anch ) capsule (after 50,000 last Units modificati on) on [facility] 10/13/21 at 1000, Until Discontinu ed, Routine ergocalcife 2021-0 Yes [id number] 50,000 Un cecelia rol 8 Units, ity of (vitamin 14:55: Oral, [place] d2) 32 QWEEKLY, Medical (CALCIFEROL First dose Br anch ) capsule (after 50,000 last Units modificati on) on [facility] 10/13/21 at 1000, Until Discontinu ed, Routine amLODIPine 2021-0 Yes 5mg 5 mg, Univer s (NORVASC) 811 Oral, QHS, ity of tablet 5 mg 02:00: First dose [place] 00 on Sun [facility] 10/12/21 at [place] 2100, Until Discontinu ed, Routine amLODIPine 0 2021- No 5mg 5 mg, Unive rs (NORVASC) 10-13 08-20 Oral, QHS, ity of tablet 5 mg 02:00: 20:11 First dose [place] 00 :44 on Sun [facility] 10/12/21 at Branch 2100, Until Discontinu ed, Routine glipiZIDE 0 2021- No 5mg 5 mg, Univer s (GLUCOTROL) 10-12 08-18 Oral, ity of tablet 5 mg 21:30: 04:47 BIDAC, [place] 00 :09 First dose Medical on Sun [place] 10/12/21 at 1630, Until Discontinu ed, Routine docusate 2021-0 Yes 100mg 100 mg, Unive rs (COLACE) 8-10 Oral, ity of capsule 100 17:00: DAILY, [place] mg 00 First dose Medical (after [place] last modificati on) on Sun10/12/21 at 1200, Until Discontinu ed, Routine docusate 2021-0 Yes 100mg 100 mg, Unive rs (COLACE) 8-10 Oral, ity of capsule 100 17:00: DAILY, [place] mg 00 First dose Medical (after [place] last modificati on) on Sun10/12/21 at 1200, Until Discontinu ed, Routine NaCl 0.45% 2021- No 1000mL at 75 Uni vers (1/2NS) IV 10-12 08-14 mL/hr, ity of infusion 15:30: 12:48 1,000 mL, [place] 1,000 mL 00 :47 IV Medical Infusion, Branch CONTINUOUS , Starting on Sun10/12/21 at 1030, Until Sun10/16/21 at 0748, Routine allopurinoL 2021-0 Yes 100mg 100 mg, [facility] (ZYLOPRIM) 8-10 Oral, ity of tablet 100 14:00: DAILY, [place] mg 00 First dose Medical on Sun10/12/21 at 0900, Until Discontinu ed, Routine allopurinoL 2021-0 Yes 100mg 100 mg, [facility] (ZYLOPRIM) 8-10 Oral, ity of tablet 100 14:00: DAILY, [place] mg 00 First dose Medical on Sun10/12/21 at 0900, Until Discontinu ed, Routine sodium 2021-2021- No 75meq IV [facility] bicarbonate 10-10 08-09 Infusion, it y of 75 mEq in 15:00: 13:25 CONTINUOUS [place] NaCl 0.45% 00 :34 , Starting Med ical (1/2NS) IV on Sun Solution 10/10/21 at 1000, Until Sun10/11/21 at 0825, 1,000 mL amLODIPine 2021- No 2.5mg 2.5 mg, [facility] [place] (NORVASC) 10-10- Oral, ity of tablet 2.5 14:00: 13:51 DAILY, [place] 00 :23 First dose Medical (after Branch last modificati on) on Sun10/10/21 at 0900, Until Discontinu ed, Routine tamsulosin 2021-0 Yes .4mg 0.4 mg, Univ ers (FLOMAX) 8 Oral, BID, ity o f capsule 0.4 01:00: First dose [place] mg 00 (after Medical last Branch modificati on) on Sun10/09/21 at 2000, Until Discontinu ed, Routine tamsulosin 2021-0 Yes .4mg 0.4 mg, Univ ers (FLOMAX) 8- Oral, BID, ity o f capsule 0.4 01:00: First dose [place] mg 00 (after Medical last Branch modificati on) on Sun10/09/21 at 2000, Until Discontinu ed, Routine epoetin 2021- No [id number] 10,000 Unive rs samanta-epbx 10-10 Units, ity of (RETACRIT) 01:00: 01:59 Subcutaneo [place] injection 00 :00 us, ONCE Medica l 10,000 AT 2000, 1 Branch Units dose, On 10/09/21 at 2000, Routine
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 Restricted medication : DIEGO GONZALEZ G NaCl 0.9% 2021- No at 75 Univer s (NS) IV 10-10 mL/hr, IV ity of infusion 00:30: 13:51 Infusion, [place] 00 :23 CONTINUOUS Medical , Starting Branch on 10/09/21 at 1930, Until 10/10/21 at 0851, Routine iron No 200mg 200 mg, IV Unive rs sucrose 10-09 Infusion, ity of (VENOFER) 23:45: 16:20 DAILY, [place] 200 mg in 00 :00 Administer Medi nani NaCl 0.9% over 2.5 Branch (NS) 100 mL Hours, infusion First dose on 10/09/21 at 1845, For 5 doses cyanocobala 2021- No 1000ug 1,000 mcg, Univers min 10-09 Subcutaneo ity of (VITAMIN 23:30: 13:45 us, DAILY, [place] B12) 00 :00 7 doses, Medical injection First dose Bran ch 1,000 mcg on 10/09/21 at 1830, Last dose on 10/15/21 at 0900, Routine ergocalcife 2021- No [id number] 50,000 U nivers rol 10-09 Units, ity of (vitamin 23:30: 14:56 Oral, [place] d2) 00 :06 QWEEKLY, Medical (CALCIFEROL First dose Br anch ) capsule on Sun 50,000 10/09/21 at Units 1830, Until Discontinu ed, Routine LORazepam 2021- No 1mg 1 mg, Univer s (ATIVAN) 10-09 Oral, ity of tablet 1 mg 22:00: 21:03 ONCE, 1 [place] 00 :00 dose, On Medical 10/09/21 Branch at 1700, Routine NaCl 0.9% 2021-0 Yes 10mL 10 mL, Univer s (NS) 8 Slow IV ity of injection 12:30: Push, PRN, [place] 10 mL 12 Starting Medical on [facility] 10/08/21 at 0730, Until Discontinu ed, Routine, line maintenanc e lidocaine 2021-0 Yes 5mL 5 mL, Univers 1% (PF) 10-08 Subcutaneo ity of (XYLOCAINE) 12:30: us, PRN, [place] injection 5 12 Starting Medi nani mL on [facility] 10/08/21 at 0730, Until Discontinu ed, Routine, Local anesthesia NaCl 0.9% 2021-0 Yes 10mL 10 mL, Univer s (NS) 10-08 Slow IV ity of injection 12:30: Push, PRN, [place] 10 mL 12 Starting Medical on [facility] 10/08/21 at 0730, Until Discontinu ed, Routine, line maintenanc e lidocaine 2021-0 Yes 5mL 5 mL, Univers 1% (PF) 10-08 Subcutaneo ity of (XYLOCAINE) 12:30: us, PRN, [place] injection 5 12 Starting Medi nani mL on [facility] 10/08/21 at 0730, Until Discontinu ed, Routine, Local anesthesia LORazepam 2021-0 Yes 1mg 1 mg, Univers (ATIVAN) 10-06 Oral, BID, ity o f tablet 1 mg 23:00: First dose 00 on [facility] 10/06/21 at Branch 1800, Until Discontinu ed, Routine LORazepam 2021-0 Yes 1mg 1 mg, Univers (ATIVAN) 10-06 Oral, BID, ity o f tablet 1 mg 23:00: First dose [place] 00 on [facility] 10/06/21 at Branch 1800, Until Discontinu ed, Routine iron 2021-0 2021- No 200mg 200 mg, IV Unive rs sucrose 10-06 0804 Infusion, ity of (VENOFER) 15:15: 17:44 ONCE, [place] 200 mg in 00 :00 Administer Medi nani NaCl 0.9% over 2.5 Branch (NS) 100 mL Hours, On infusion [facility] 10/06/21 at 1015, For 1 dose polyethylen 2021- No 17g 17 g, Univ ers e glycol 10-0610 Oral, ity of 3350 powder 14:00: 15:17 DAILY, [place] 17 g 00 :18 First dose Medical on [facility] 10/06/21 at 0900, Until Discontinu ed, Routine fenofibrate No 134mg 134 mg, U nivers micronized 10-06 Oral, ity of (LOFIBRA) 14:00: 13:51 DAILY, [place] capsule 134 00 :23 First dose Me dical mg on [facility] 10/06/21 at 0900, Until Discontinu ed tamsulosin No .4mg 0.4 mg, Uni vers (FLOMAX) 10-06 Oral, ity of capsule 0.4 14:00: 23:24 DAILY, [place] mg 00 :17 First dose Medical on [facility] 10/06/21 at 0900, Until Discontinu ed, Routine furosemide No 40mg 40 mg, Univ ers (LASIX) 10-06 Oral, ity of tablet 40 14:00: 13:23 DAILY, [place] mg 00 :04 First dose Medical on [facility] 10/06/21 at 0900, Until Discontinu ed, Routine amLODIPine 2021- No 5mg 5 mg, Unive rs (NORVASC) 10-06 Oral, ity of tablet 5 mg 14:00: 23:58 DAILY, [place] 00 :46 First dose Medical on [facility] 10/06/21 at 0900, Until Discontinu ed, Routine atorvastati Yes 80mg 80 mg, Univ ers n (LIPITOR) 10-06 Oral, QHS, it y of tablet 80 02:00: First dose [place] mg 00 on [facility] 10/05/21 at Branch 2100, Until Discontinu ed, Routine atorvastati Yes 80mg 80 mg, Univ ers n (LIPITOR) 10-06 Oral, QHS, it y of tablet 80 02:00: First dose [place] mg 00 on [facility] 10/05/21 at Branch 2100, Until Discontinu ed, Routine pantoprazol 2022-0 Yes 40mg 40 mg, Univ ers e 8- Oral, BID, ity of (PROTONIX) 01:00: First dose [place] EC tablet 00 on Sun Medical 40 mg 10/05/21 at [place] 1999, Until Discontinu ed, Routine metoprolol Yes 25mg 25 mg, Unive rs tartrate 10-06 Oral, BID, ity o f (LOPRESSOR) 01:00: First dose [place] tablet 25 00 on Sun Medical mg 10/05/21 at [place] 1999, Until Discontinu ed, Routine pantoprazol Yes 40mg 40 mg, Univ ers e 8 Oral, BID, ity of (PROTONIX) 01:00: First dose [place] EC tablet 00 on Sun Medical 40 mg 10/05/21 at [place] 1999, Until Discontinu ed, Routine metoprolol 202- No 25mg 25 mg, Univ ers tartrate 10-06 08-21 Oral, BID, ity of (LOPRESSOR) 01:00: 12:49 First dose [place] tablet 25 00 :26 on Sun Medical mg 10/05/21 at [place] 1999, Until Discontinu ed, Routine furosemide 2021- No 20mg 20 mg, IV U nivers (LASIX) 10-06-04 Push, ity of injection 00:15: 01:16 ONCE, 1 [place] 20 mg 00 :00 dose, On Medical Sun10/05/21 Branch at 1915, Routine lisinopriL 2021- No 5mg 5 mg, Unive rs (PRINIVIL,Z 10-05 08-07 Oral, ity of ESTRIL) 23:15: 13:23 DAILY, [place] tablet 5 mg 00 :04 First dose Me dical on Sun Branch 10/05/21 at 1815, Until Discontinu ed, Routine Sliding 0 Yes Subcutaneo Univ ers Scale 8-03 us, TID ity of Insulin - 22:00: MEALS+HS, [place] Lispro 00 First dose Medical (HumaLOG) + on Sun Branch [facility] 10/05/21 at Testing 1700, Until Discontinu ed, Routine Sliding 2021-0 Yes Subcutaneo Univ ers Scale 8-03 us, TID ity of Insulin - 22:00: MEALS+HS, [place] Lispro 00 First dose Medical (HumaLOG) + on Wed Branch [facility] 10/05/21 at Testing 1700, Until Discontinu ed, Routine glucagon 2-0 Yes 1mg 1 mg, Univers (GLUCAGEN 10-05 Intramuscu ity of DIAGNOSTIC 19:58: lar, PRN, [place] KIT) 22 Starting Medical injection 1 on Wed Branch mg 10/05/21 at 1458, Until Discontinu ed, NILESH, Blood Glucose < or = 70 mg/dL and patient is unable to swallow or has mental changes. dextrose 50 2021-0 Yes 25mL 25 mL, Univ ers % in water 8 Slow IV ity of (D50W) 19:58: Push, PRN, [place] injection 22 Starting Medica l 25 mL on Wed Branch 10/05/21 at 1458, Until Discontinu ed, NILESH, Blood Glucose < or = 70 mg/dL and patient is unable to swallow or has mental status changes. glucagon 2-0 Yes 1mg 1 mg, Univers (GLUCAGEN 10-05 Intramuscu ity of DIAGNOSTIC 19:58: lar, PRN, [place] KIT) 22 Starting Medical injection 1 on Wed Branch mg 10/05/21 at 1458, Until Discontinu ed, NILESH, Blood Glucose < or = 70 mg/dL and patient is unable to swallow or has mental changes. dextrose 50 2-0 Yes 25mL 25 mL, Univ ers % in water 803 Slow IV ity of (D50W) 19:58: Push, PRN, [place] injection 22 Starting Medica l 25 mL on Wed Branch 10/05/21 at 1458, Until Discontinu ed, NILESH, Blood Glucose < or = 70 mg/dL and patient is unable to swallow or has mental status changes. ondansetron 2022-0 Yes 4mg 4 mg, Slow Univers (ZOFRAN 8-03 IV Push, ity of (PF)) 19:58: Q6HPRN, [place] injection 4 13 Starting Medi nani mg on Wed Branch 10/05/21 at 1458, Until Discontinu ed, Routine, Nausea and Vomiting (N/V) ondansetron 2022-0 Yes 4mg 4 mg, Slow Univers (ZOFRAN 8-03 IV Push, ity of (PF)) 19:58: Q6HPRN, [place] injection 4 13 Starting Medi nani mg on Sun Branch 10/05/21 at 1458, Until Discontinu ed, Routine, Nausea and Vomiting (N/V) acetaminoph 0 Yes 650mg 650 mg, [facility] en 10-05 Oral, ity of (TYLENOL) 19:58: Q6HPRN, [place] tablet 650 02 Starting Medic al mg on Sun Branch 10/05/21 at 1458, Until Discontinu ed, Routine, Pain (scale 1-3), Temp > 38.5 C acetaminoph 0 Yes 650mg 650 mg, [facility] en 10-05 Oral, ity of (TYLENOL) 19:58: Q6HPRN, [place] tablet 650 02 Starting Medic al mg on Sun Branch 10/05/21 at 1458, Until Discontinu ed, Routine, Pain (scale 1-3), Temp > 38.5 C hydralAZINE 2021- No 20mg 20 mg, Uni vers (APRESOLINE 10-05 Slow IV ity of ) injection 19:15: 19:20 Push, [place] 20 mg 00 :00 ONCE, 1 Medical dose, On Branch Sun10/05/21 at 1415, NILESH NaCl 0.9% 2021- No 250mL 250 mL, IV Univers (NS) IV 10-05 Infusion, ity of Line 14:45: 16:30 ONCE, 1 [place] Priming and 00 :00 dose, On Medi nani [place] Sun10/05/21 Bran h Fluid Only at 0945, 250 mL 250 mL atorvastati Yes [id number] 80mg Take 1 Univers n 80 mg 7-28 tablet by ity of tablet 00:00: mouth at [place] 00 bedtime. Medical Branch metoprolol Yes [id number] 25mg Take 1 U nivers tartrate 25 7-28 tablet by ity of mg tablet 00:00: mouth in [place] 00 the Medical morning Branch and 1 tablet in the evening. atorvastati Yes [id number] 80mg Take 1 Univers n 80 mg 7-28 tablet by ity of tablet 00:00: mouth at [place] 00 bedtime. Medical Branch metoprolol 2022-0 Yes [id number] 25mg Take 1 U nivers tartrate 25 7-28 tablet by ity of mg tablet 00:00: mouth in [place] 00 the Medical morning Branch and 1 tablet in the evening. atorvastati 2021-0 Yes [id number] 80mg Take 1 Univers n 80 mg 7-28 tablet by ity of tablet 00:00: mouth at [place] 00 bedtime. Medical Branch metoprolol 2021-0 Yes [id number] 25mg Take 1 U nivers tartrate 25 7-28 tablet by ity of mg tablet 00:00: mouth in [place] 00 the Medical morning Branch and 1 tablet in the evening. atorvastati 0 Yes [id number] 80mg Take 1 Univers n 80 mg 7-28 tablet by ity of tablet 00:00: mouth at [place] 00 bedtime. Medical Branch metoprolol 0 Yes [id number] 25mg Take 1 U nivers tartrate 25 7-28 tablet by ity of mg tablet 00:00: mouth in [place] 00 the Medical morning Branch and 1 tablet in the evening. atorvastati 0 Yes [id number] 80mg Take 1 Univers n 80 mg 7-28 tablet by ity of tablet 00:00: mouth at [place] 00 bedtime. Medical Branch metoprolol 0 Yes [id number] 25mg Take 1 U nivers tartrate 25 7-28 tablet by ity of mg tablet 00:00: mouth in [place] 00 the Medical morning Branch and 1 tablet in the evening. atorvastati 2021-0 Yes [id number] 80mg Take 1 Univers n 80 mg 7-28 tablet by ity of tablet 00:00: mouth at [place] 00 bedtime. Medical Branch metoprolol 0 Yes [id number] 25mg Take 1 U nivers tartrate 25 7-28 tablet by ity of mg tablet 00:00: mouth in [place] 00 the Medical morning Branch and 1 tablet in the evening. atorvastati 2021-0 Yes [id number] 80mg Take 1 Univers n 80 mg 7-28 tablet by ity of tablet 00:00: mouth at [place] 00 bedtime. Medical Branch metoprolol 2021-0 Yes [id number] 25mg Take 1 U nivers tartrate 25 7-28 tablet by ity of mg tablet 00:00: mouth in [place] 00 the Medical morning Branch and 1 tablet in the evening. atorvastati 2021-0 Yes [id number] 80mg Take 1 Univers n 80 mg 7-28 tablet by ity of tablet 00:00: mouth at [place] 00 bedtime. Medical Branch metoprolol 2021-0 Yes [id number] 25mg Take 1 U nivers tartrate 25 7-28 tablet by ity of mg tablet 00:00: mouth in [place] 00 the Medical morning Branch and 1 tablet in the evening. atorvastati 2021-0 Yes [id number] 80mg Take 1 Univers n 80 mg 7-28 tablet by ity of tablet 00:00: mouth at [place] 00 bedtime. Medical Branch metoprolol 2021-0 Yes [id number] 25mg Take 1 U nivers tartrate 25 7-28 tablet by ity of mg tablet 00:00: mouth in [place] 00 the Medical morning Branch and 1 tablet in the evening. atorvastati 2021-0 Yes [id number] 80mg Take 1 Univers n 80 mg 7-28 tablet by ity of tablet 00:00: mouth at [place] 00 bedtime. Medical Branch metoprolol 2021-0 Yes [id number] 25mg Take 1 U nivers tartrate 25 7-28 tablet by ity of mg tablet 00:00: mouth in [place] 00 the Medical morning Branch and 1 tablet in the evening. atorvastati 2021-0 Yes [id number] 80mg Take 1 Univers n 80 mg 7-28 tablet by ity of tablet 00:00: mouth at [place] 00 bedtime. Medical Branch metoprolol 2021-0 Yes [id number] 25mg Take 1 U nivers tartrate 25 7-28 tablet by ity of mg tablet 00:00: mouth in [place] 00 the Medical morning Branch and 1 tablet in the evening. atorvastati 2021-0 Yes [id number] 80mg Take 1 Univers n 80 mg 7-28 tablet by ity of tablet 00:00: mouth at [place] 00 bedtime. Medical Branch metoprolol 2021-0 Yes [id number] 25mg Take 1 U nivers tartrate 25 7-28 tablet by ity of mg tablet 00:00: mouth in [place] 00 the Medical morning Branch and 1 tablet in the evening. atorvastati 2021-0 Yes [id number] 80mg Take 1 Univers n 80 mg 7-28 tablet by ity of tablet 00:00: mouth at [place] 00 bedtime. Medical Branch metoprolol 0 Yes [id number] 25mg Take 1 U nivers tartrate 25 7-28 tablet by ity of mg tablet 00:00: mouth in [place] 00 the Medical morning Branch and 1 tablet in the evening. atorvastati 2021-0 Yes [id number] 80mg Take 1 Univers n 80 mg 7-28 tablet by ity of tablet 00:00: mouth at [place] 00 bedtime. Medical Branch metoprolol 0 Yes [id number] 25mg Take 1 U nivers tartrate 25 7-28 tablet by ity of mg tablet 00:00: mouth in [place] 00 the Medical morning Branch and 1 tablet in the evening. atorvastati 0 Yes [id number] 80mg Take 1 Univers n 80 mg 7-28 tablet by ity of tablet 00:00: mouth at [place] 00 bedtime. Medical Branch metoprolol 0 Yes [id number] 25mg Take 1 U nivers tartrate 25 7-28 tablet by ity of mg tablet 00:00: mouth in [place] 00 the Medical morning Branch and 1 tablet in the evening. atorvastati 0 Yes [id number] 80mg Take 1 Univers n 80 mg 7-28 tablet by ity of tablet 00:00: mouth at [place] 00 bedtime. Medical Branch metoprolol 2021-0 Yes [id number] 25mg Take 1 U nivers tartrate 25 7-28 tablet by ity of mg tablet 00:00: mouth in [place] 00 the Medical morning Branch and 1 tablet in the evening. atorvastati 2021-0 Yes [id number] 80mg Take 1 Univers n 80 mg 7-28 tablet by ity of tablet 00:00: mouth at [place] 00 bedtime. Medical Branch metoprolol 0 Yes [id number] 25mg Take 1 U nivers tartrate 25 7-28 tablet by ity of mg tablet 00:00: mouth in [place] 00 the Medical morning Branch and 1 tablet in the evening. atorvastati 2021-0 Yes [id number] 80mg Take 1 Univers n 80 mg 7-28 tablet by ity of tablet 00:00: mouth at [place] 00 bedtime. Medical Branch metoprolol 2021-0 Yes [id number] 25mg Take 1 U nivers tartrate 25 7-28 tablet by ity of mg tablet 00:00: mouth in [place] 00 the Medical morning Branch and 1 tablet in the evening. atorvastati 2021-0 Yes [id number] 80mg Take 1 Univers n 80 mg 7-28 tablet by ity of tablet 00:00: mouth at [place] 00 bedtime. Medical Branch metoprolol 2021-0 Yes [id number] 25mg Take 1 U nivers tartrate 25 7-28 tablet by ity of mg tablet 00:00: mouth in [place] 00 the Medical morning Branch and 1 tablet in the evening. atorvastati 2021-0 Yes [id number] 80mg Take 1 Univers n 80 mg 7-28 tablet by ity of tablet 00:00: mouth at [place] 00 bedtime. Medical Branch metoprolol 0 Yes [id number] 25mg Take 1 U nivers tartrate 25 7-28 tablet by ity of mg tablet 00:00: mouth in [place] 00 the Medical morning Branch and 1 tablet in the evening. atorvastati 0 Yes [id number] 80mg Take 1 Univers n 80 mg 7-28 tablet by ity of tablet 00:00: mouth at [place] 00 bedtime. Medical Branch metoprolol 0 Yes [id number] 25mg Take 1 U nivers tartrate 25 7-28 tablet by ity of mg tablet 00:00: mouth in [place] 00 the Medical morning Branch and 1 tablet in the evening. atorvastati 2021-0 Yes [id number] 80mg Take 1 Univers n 80 mg 7-28 tablet by ity of tablet 00:00: mouth at [place] 00 bedtime. Medical Branch metoprolol 2021-0 Yes [id number] 25mg Take 1 U nivers tartrate 25 7-28 tablet by ity of mg tablet 00:00: mouth in [place] 00 the Medical morning Branch and 1 tablet in the evening. atorvastati 2021-0 Yes [id number] 80mg Take 1 Univers n 80 mg 7-28 tablet by ity of tablet 00:00: mouth at [place] 00 bedtime. Medical Branch metoprolol 2022-0 Yes [id number] 25mg Take 1 U nivers tartrate 25 7-28 tablet by ity of mg tablet 00:00: mouth in [place] 00 the Medical morning Branch and 1 tablet in the evening. atorvastati 0 Yes [id number] 80mg Take 1 Univers n 80 mg 7-28 tablet by ity of tablet 00:00: mouth at [place] 00 bedtime. Medical Branch metoprolol 0 Yes [id number] 25mg Take 1 U nivers tartrate 25 7-28 tablet by ity of mg tablet 00:00: mouth in [place] 00 the Medical morning Branch and 1 tablet in the evening. atorvastati 0 Yes [id number] 80mg Take 1 Univers n 80 mg 7-28 tablet by ity of tablet 00:00: mouth at [place] 00 bedtime. Medical Branch metoprolol Yes [id number] 25mg Take 1 U nivers tartrate 25 7-28 tablet by ity of mg tablet 00:00: mouth in [place] 00 the Medical morning Branch and 1 tablet in the evening. atorvastati 0 Yes [id number] 80mg Take 1 Univers n 80 mg 7-28 tablet by ity of tablet 00:00: mouth at [place] 00 bedtime. Medical Branch metoprolol 0 Yes [id number] 25mg Take 1 U nivers tartrate 25 7-28 tablet by ity of mg tablet 00:00: mouth in [place] 00 the Medical morning Branch and 1 tablet in the evening. atorvastati 0 Yes [id number] 80mg Take 1 Univers n 80 mg 7-28 tablet by ity of tablet 00:00: mouth at [place] 00 bedtime. Medical Branch metoprolol 0 Yes [id number] 25mg Take 1 U nivers tartrate 25 7-28 tablet by ity of mg tablet 00:00: mouth in [place] 00 the Medical morning Branch and 1 tablet in the evening. atorvastati 2021- No [id number] 80mg Take 1 Univers n 80 mg 7-28 - tablet by ity of tablet 00:00: 00:00 mouth at [place] 00 :00 bedtime. Medical Branch metoprolol 2021- No [id number] 25mg Take 1 [facility] tartrate 25 7-28 - tablet by it y of mg tablet 00:00: 00:00 mouth in [place] 00 :00 the Medical morning Branch and 1 tablet in the evening. amLODIPine 2021-0 Yes [id number] 5mg Take 1 U nivers 5 mg tablet 3-05 tablet by ity of 00:00: mouth [place] 00 daily. Medical Branch amLODIPine 2021-0 Yes [id number] 5mg Take 1 U nivers 5 mg tablet 3-05 tablet by ity of 00:00: mouth [place] 00 daily. Medical Branch amLODIPine 2021-0 Yes [id number] 5mg Take 1 U nivers 5 mg tablet 3-05 tablet by ity of 00:00: mouth [place] 00 daily. Medical Branch amLODIPine 2021-0 Yes [id number] 5mg Take 1 U nivers 5 mg tablet 3-05 tablet by ity of 00:00: mouth [place] 00 daily. Medical Branch amLODIPine 2021-0 Yes [id number] 5mg Take 1 U nivers 5 mg tablet 3-05 tablet by ity of 00:00: mouth [place] 00 daily. Medical Branch amLODIPine 2021-0 Yes [id number] 5mg Take 1 U nivers 5 mg tablet 3-05 tablet by ity of 00:00: mouth [place] 00 daily. Medical Branch amLODIPine 2021-0 Yes [id number] 5mg Take 1 U nivers 5 mg tablet 3-05 tablet by ity of 00:00: mouth [place] 00 daily. Medical Branch amLODIPine 2- No [id number] 5mg Take 1 Univers 5 mg tablet 3-05 08-23 tablet by it y of 00:00: 00:00 mouth [place] 00 :00 daily. Medical Branch polyethylen 2021-0 Yes [id number] 17g Take 1 Univers e glycol 2-26 Packet by ity of 3350 17 00:00: mouth [place] gram powder 00 daily. Medica l Branch polyethylen 2021-0 Yes [id number] 17g Take 1 Univers e glycol 2-26 Packet by ity of 3350 17 00:00: mouth [place] gram powder 00 daily. Medica l Branch polyethylen 2021-0 Yes [id number] 17g Take 1 Univers e glycol 2-26 Packet by ity of 3350 17 00:00: mouth [place] gram powder 00 daily. Medica l Branch polyethylen 2021-0 Yes [id number] 17g Take 1 Univers e glycol 2-26 Packet by ity of 3350 17 00:00: mouth [place] gram powder 00 daily. Medica l Branch polyethylen 2021-0 Yes [id number] 17g Take 1 Univers e glycol 2-26 Packet by ity of 3350 17 00:00: mouth [place] gram powder 00 daily. Medica l Branch polyethylen 2-0 Yes [id number] 17g Take 1 Univers e glycol 2-26 Packet by ity of 3350 17 00:00: mouth [place] gram powder 00 daily. Medica l Branch polyethylen 2021-0 Yes [id number] 17g Take 1 Univers e glycol 2-26 Packet by ity of 3350 17 00:00: mouth [place] gram powder 00 daily. Medica l Branch polyethylen 2021-0 Yes [id number] 17g Take 1 Univers e glycol 2-26 Packet by ity of 3350 17 00:00: mouth [place] gram powder 00 daily. Medica l Branch polyethylen 2021-0 Yes [id number] 17g Take 1 Univers e glycol 2-26 Packet by ity of 3350 17 00:00: mouth [place] gram powder 00 daily. Medica l Branch polyethylen 2021-0 Yes [id number] 17g Take 1 Univers e glycol 2-26 Packet by ity of 3350 17 00:00: mouth [place] gram powder 00 daily. Medica l Branch polyethylen 2-0 Yes [id number] 17g Take 1 Univers e glycol 2-26 Packet by ity of 3350 17 00:00: mouth [place] gram powder 00 daily. Medica l Branch polyethylen 2-0 Yes [id number] 17g Take 1 Univers e glycol 2-26 Packet by ity of 3350 17 00:00: mouth [place] gram powder 00 daily. Medica l Branch polyethylen 2-0 Yes [id number] 17g Take 1 Univers e glycol 2-26 Packet by ity of 3350 17 00:00: mouth [place] gram powder 00 daily. Medica l Branch polyethylen 2-0 Yes [id number] 17g Take 1 Univers e glycol 2-26 Packet by ity of 3350 17 00:00: mouth [place] gram powder 00 daily. Medica l Branch polyethylen 2-0 Yes [id number] 17g Take 1 Univers e glycol 2-26 Packet by ity of 3350 17 00:00: mouth [place] gram powder 00 daily. Medica l Branch polyethylen 2021-0 Yes [id number] 17g Take 1 Univers e glycol 2-26 Packet by ity of 3350 17 00:00: mouth [place] gram powder 00 daily. Medica l Branch polyethylen 2021-0 Yes [id number] 17g Take 1 Univers e glycol 2-26 Packet by ity of 3350 17 00:00: mouth [place] gram powder 00 daily. Medica l Branch polyethylen 2021-0 Yes [id number] 17g Take 1 Univers e glycol 2-26 Packet by ity of 3350 17 00:00: mouth [place] gram powder 00 daily. Medica l Branch polyethylen 2021-0 2022- No [id number] 17g Take 1 Univers e glycol 2-26 09-30 Packet by ity o f 3350 17 00:00: 00:00 mouth [place] gram powder 00 :00 daily. Medica l Branch polyethylen 2021-0 2022- No [id number] 17g Take 1 Univers e glycol 2-26 09-30 Packet by ity o f 3350 17 00:00: 00:00 mouth [place] gram powder 00 :00 daily. Medica l Branch polyethylen 2021-0 2022- No [id number] 17g Take 1 Univers e glycol 2-26 09-30 Packet by ity o f 3350 17 00:00: 00:00 mouth [place] gram powder 00 :00 daily. Medica l Branch polyethylen 2021-0 2022- No [id number] 17g Take 1 Univers e glycol 2-26 09-30 Packet by ity o f 3350 17 00:00: 00:00 mouth [place] gram powder 00 :00 daily. Medica l Branch pantoprazol 2021-0 Yes [id number] 40mg Take 1 Univers e 40 mg EC 2-25 tablet by ity of tablet 00:00: mouth 2 00 (two) Medical times Branch daily. pantoprazol 2-0 Yes [id number] 40mg Take 1 Univers e 40 mg EC 2-25 tablet by ity of tablet 00:00: mouth 2 00 (two) Medical times Branch daily. pantoprazol 2-0 Yes [id number] 40mg Take 1 Univers e 40 mg EC 2-25 tablet by ity of tablet 00:00: mouth 2 00 (two) Medical times Branch daily. pantoprazol 2022-0 Yes [id number] 40mg Take 1 Univers e 40 mg EC 2-25 tablet by ity of tablet 00:00: mouth (two) Medical times Branch daily. pantoprazol 2022-0 Yes [id number] 40mg Take 1 Univers e 40 mg EC 2-25 tablet by ity of tablet 00:00: mouth (two) Medical times Branch daily. pantoprazol 2022-0 Yes [id number] 40mg Take 1 Univers e 40 mg EC 2-25 tablet by ity of tablet 00:00: mouth (two) Medical times Branch daily. pantoprazol 2022-0 Yes [id number] 40mg Take 1 Univers e 40 mg EC 2-25 tablet by ity of tablet 00:00: mouth (two) Medical times Branch daily. pantoprazol 2022-0 Yes [id number] 40mg Take 1 Univers e 40 mg EC 2-25 tablet by ity of tablet 00:00: mouth (two) Medical times Branch daily. pantoprazol 2022-0 Yes [id number] 40mg Take 1 [facility] 40 mg EC 2-25 tablet by [facility] of tablet 00:00: mouth (two) Medical times Branch daily. pantoprazol 2022-0 Yes [id number] 40mg Take 1 [facility] 40 mg EC 2-25 tablet by [facility] of tablet 00:00: mouth (two) Medical times Branch daily. pantoprazol 2022-0 Yes [id number] 40mg Take 1 [facility] 40 mg EC 2-25 tablet by [facility] of tablet 00:00: mouth (two) Medical times Branch daily. pantoprazol 2022-0 Yes [id number] 40mg Take 1 [facility] 40 mg EC 2-25 tablet by [facility] of tablet 00:00: mouth (two) Medical times Branch daily. pantoprazol 2022-0 Yes [id number] 40mg Take 1 [facility] 40 mg EC 2-25 tablet by [facility] of tablet 00:00: mouth (two) Medical times Branch daily. pantoprazol 2022-0 Yes [id number] 40mg Take 1 [facility] 40 mg EC 2-25 tablet by [facility] of tablet 00:00: mouth (two) Medical times Branch daily. pantoprazol 2021-0 Yes [id number] 40mg Take 1 [facility] 40 mg EC 2-25 tablet by [facility] of tablet 00:00: mouth 2 [place] 00 (two) Medical times Branch daily. pantoprazol 2021-0 Yes [id number] 40mg Take 1 [facility] 40 mg EC 2-25 tablet by [facility] of tablet 00:00: mouth 2 [place] 00 (two) Medical times Branch daily. pantoprazol 2021-0 Yes [id number] 40mg Take 1 [facility] 40 mg EC 2-25 tablet by [facility] of tablet 00:00: mouth 2 [place] 00 (two) Medical times Branch daily. pantoprazol 2021-0 Yes [id number] 40mg Take 1 [facility] 40 mg EC 2-25 tablet by [facility]y of tablet 00:00: mouth 2 [place] (two) Medical times Branch daily. pantoprazol 2021-0 2021- No [id number] 40mg Take 1 [facility] 40 mg EC 2-25 09-30 tablet by ity of tablet 00:00: 00:00 mouth 2 [place] 00 :00 (two) Medical times Branch daily. pantoprazol 2021-0 2021- No [id number] 40mg Take 1 [facility] 40 mg EC 2-25 09-30 tablet by ity of tablet 00:00: 00:00 mouth 2 [place] 00 :00 (two) Medical times Branch daily. pantoprazol 2021-0 2021- No [id number] 40mg Take 1 [facility] 40 mg EC 2-25 09-30 tablet by it[facility] of tablet 00:00: 00:00 mouth 2 [place] 00 :00 (two) Medical times Branch daily. pantoprazol 2021-0 2021- No [id number] 40mg Take 1 [facility] 40 mg EC 2-25 09-30 tablet by ity of tablet 00:00: 00:00 mouth 2 [place] 00 :00 (two) Medical times Branch daily. acetaminoph 2021-0 Yes [id number] 650mg Take 2 [facility] en 2-01 tablets by ity of (TYLENOL) 00:00: mouth [place] 325 mg 00 every 6 Medical tablet (six) Branch hours as needed for Pain (scale 4-6). acetaminoph 2021-0 Yes [id number] 650mg Take 2 [facility] en 2-01 tablets by ity of (TYLENOL) 00:00: mouth [place] 325 mg 00 every 6 Medical tablet (six) Branch hours as needed for Pain (scale 4-6). acetaminoph 2022-0 Yes [id number] 650mg Take 2 [facility] en 2-01 tablets by ity of (TYLENOL) 00:00: mouth [place] 325 mg 00 every 6 Medical tablet (six) Branch hours as needed for Pain (scale 4-6). acetaminoph 2022-0 Yes [id number] 650mg Take 2 [facility] en 2-01 tablets by ity of (TYLENOL) 00:00: mouth [place] 325 mg 00 every 6 Medical tablet (six) Branch hours as needed for Pain (scale 4-6). acetaminoph 2022-0 Yes [id number] 650mg Take 2 [facility] en 2-01 tablets by ity of (TYLENOL) 00:00: mouth [place] 325 mg 00 every 6 Medical tablet (six) Branch hours as needed for Pain (scale 4-6). acetaminoph 2022-0 Yes [id number] 650mg Take 2 [facility] en 2-01 tablets by ity of (TYLENOL) 00:00: mouth [place] 325 mg 00 every 6 Medical tablet (six) Branch hours as needed for Pain (scale 4-6). acetaminoph 2022-0 Yes [id number] 650mg Take 2 [facility] en 2-01 tablets by ity of (TYLENOL) 00:00: mouth [place] 325 mg 00 every 6 Medical tablet (six) Branch hours as needed for Pain (scale 4-6). acetaminoph 2022-0 Yes [id number] 650mg Take 2 [facility] en 2-01 tablets by ity of (TYLENOL) 00:00: mouth [place] 325 mg 00 every 6 Medical tablet (six) Branch hours as needed for Pain (scale 4-6). acetaminoph 2022-0 Yes [id number] 650mg Take 2 [facility] en 2-01 tablets by ity of (TYLENOL) 00:00: mouth [place] 325 mg 00 every 6 Medical tablet (six) Branch hours as needed for Pain (scale 4-6). acetaminoph 2022-0 Yes [id number] 650mg Take 2 [facility] en 2-01 tablets by ity of (TYLENOL) 00:00: mouth [place] 325 mg 00 every 6 Medical tablet (six) Branch hours as needed for Pain (scale 4-6). acetaminoph 2022-0 Yes [id number] 650mg Take 2 [facility] en 2-01 tablets by ity of (TYLENOL) 00:00: mouth [place] 325 mg 00 every 6 Medical tablet (six) Branch hours as needed for Pain (scale 4-6). acetaminoph 2-0 Yes [id number] 650mg Take 2 [facility] en 2-01 tablets by ity of (TYLENOL) 00:00: mouth [place] 325 mg 00 every 6 Medical tablet (six) Branch hours as needed for Pain (scale 4-6). acetaminoph 2-0 Yes [id number] 650mg Take 2 [facility] en 2-01 tablets by ity of (TYLENOL) 00:00: mouth [place] 325 mg 00 every 6 Medical tablet (six) Branch hours as needed for Pain (scale 4-6). acetaminoph 2-0 Yes [id number] 650mg Take 2 [facility] en 2-01 tablets by ity of (TYLENOL) 00:00: mouth [place] 325 mg 00 every 6 Medical tablet (six) Branch hours as needed for Pain (scale 4-6). acetaminoph 2-0 Yes [id number] 650mg Take 2 [facility] en 2-01 tablets by ity of (TYLENOL) 00:00: mouth [place] 325 mg 00 every 6 Medical tablet (six) Branch hours as needed for Pain (scale 4-6). acetaminoph 2-0 Yes [id number] 650mg Take 2 [facility] en 2-01 tablets by ity of (TYLENOL) 00:00: mouth [place] 325 mg 00 every 6 Medical tablet (six) Branch hours as needed for Pain (scale 4-6). acetaminoph 2-0 Yes [id number] 650mg Take 2 [facility] en 2-01 tablets by ity of (TYLENOL) 00:00: mouth [place] 325 mg 00 every 6 Medical tablet (six) Branch hours as needed for Pain (scale 4-6). acetaminoph 2022-0 Yes [id number] 650mg Take 2 [facility] en 2-01 tablets by ity of (TYLENOL) 00:00: mouth [place] 325 mg 00 every 6 Medical tablet (six) Branch hours as needed for Pain (scale 4-6). acetaminoph 2-0 Yes [id number] 650mg Take 2 [facility] en 2-01 tablets by ity of (TYLENOL) 00:00: mouth [place] 325 mg 00 every 6 Medical tablet (six) Branch hours as needed for Pain (scale 4-6). acetaminoph 2022-0 Yes [id number] 650mg Take 2 [facility] en 2-01 tablets by ity of (TYLENOL) 00:00: mouth [place] 325 mg 00 every 6 Medical tablet (six) Branch hours as needed for Pain (scale 4-6). acetaminoph 2022-0 Yes [id number] 650mg Take 2 [facility] en 2-01 tablets by ity of (TYLENOL) 00:00: mouth [place] 325 mg 00 every 6 Medical tablet (six) Branch hours as needed for Pain (scale 4-6). acetaminoph 2022-0 Yes [id number] 650mg Take 2 [facility] en 2-01 tablets by ity of (TYLENOL) 00:00: mouth [place] 325 mg 00 every 6 Medical tablet (six) Branch hours as needed for Pain (scale 4-6). acetaminoph 2-0 Yes [id number] 650mg Take 2 [facility] en 2-01 tablets by ity of (TYLENOL) 00:00: mouth [place] 325 mg 00 every 6 Medical tablet (six) Branch hours as needed for Pain (scale 4-6). acetaminoph 2-0 Yes [id number] 650mg Take 2 [facility] en 2-01 tablets by ity of (TYLENOL) 00:00: mouth [place] 325 mg 00 every 6 Medical tablet (six) Branch hours as needed for Pain (scale 4-6). acetaminoph 2-0 Yes [id number] 650mg Take 2 [facility] en 2-01 tablets by ity of (TYLENOL) 00:00: mouth [place] 325 mg 00 every 6 Medical tablet (six) Branch hours as needed for Pain (scale 4-6). acetaminoph 2-0 Yes [id number] 650mg Take 2 [facility] en 2-01 tablets by ity of (TYLENOL) 00:00: mouth [place] 325 mg 00 every 6 Medical tablet (six) Branch hours as needed for Pain (scale 4-6). acetaminoph 2022-0 Yes [id number] 650mg Take 2 [facility] en 2-01 tablets by ity of (TYLENOL) 00:00: mouth [place] 325 mg 00 every 6 Medical tablet (six) Branch hours as needed for Pain (scale 4-6). acetaminoph 2022-0 Yes [id number] 650mg Take 2 [facility] en 2-01 tablets by ity of (TYLENOL) 00:00: mouth [place] 325 mg 00 every 6 Medical tablet (six) Branch hours as needed for Pain (scale 4-6). acetaminoph 2-0 Yes [id number] 650mg Take 2 [facility] en 2-01 tablets by ity of (TYLENOL) 00:00: mouth [place] 325 mg 00 every 6 Medical tablet (six) Branch hours as needed for Pain (scale 4-6). acetaminoph 2-0 Yes [id number] 650mg Take 2 [facility] en 2-01 tablets by [facility]y of (TYLENOL) 00:00: mouth [place] 325 mg 00 every 6 Medical tablet (six) Branch hours as needed for Pain (scale 4-6). acetaminoph 2-0 Yes [id number] 650mg Take 2 [facility] en 2-01 tablets by ity of (TYLENOL) 00:00: mouth [place] 325 mg 00 every 6 Medical tablet (six) Branch hours as needed for Pain (scale 4-6). acetaminoph 2021-0 Yes [id number] 650mg Take 2 [facility] en 2-01 tablets by ity of (TYLENOL) 00:00: mouth [place] 325 mg 00 every 6 Medical tablet (six) Branch hours as needed for Pain (scale 4-6). acetaminoph 2021-0 Yes [id number] 650mg Take 2 [facility] en 2-01 tablets by ity of (TYLENOL) 00:00: mouth [place] 325 mg 00 every 6 Medical tablet (six) Branch hours as needed for Pain (scale 4-6). acetaminoph 2021-0 Yes [id number] 650mg Take 2 [facility] en 2-01 tablets by ity of (TYLENOL) 00:00: mouth [place] 325 mg 00 every 6 Medical tablet (six) Branch hours as needed for Pain (scale 4-6). acetaminoph 2-0 Yes [id number] 650mg Take 2 [facility] en 2-01 tablets by ity of (TYLENOL) 00:00: mouth [place] 325 mg 00 every 6 Medical tablet (six) Branch hours as needed for Pain (scale 4-6). acetaminoph 2-0 Yes [id number] 650mg Take 2 [facility] en 2-01 tablets by ity of (TYLENOL) 00:00: mouth [place] 325 mg 00 every 6 Medical tablet (six) Branch hours as needed for Pain (scale 4-6). acetaminoph 2022-0 Yes [id number] 650mg Take 2 [facility] en 2-01 tablets by ity of (TYLENOL) 00:00: mouth [place] 325 mg 00 every 6 Medical tablet (six) Branch hours as needed for Pain (scale 4-6). acetaminoph 2021-0 Yes [id number] 650mg Take 2 [facility] en 2-01 tablets by ity of (TYLENOL) 00:00: mouth [place] 325 mg 00 every 6 Medical tablet (six) Branch hours as needed for Pain (scale 4-6). acetaminoph 2021-0 Yes [id number] 650mg Take 2 [facility] en 2-01 tablets by ity of (TYLENOL) 00:00: mouth [place] 325 mg 00 every 6 Medical tablet (six) Branch hours as needed for Pain (scale 4-6). acetaminoph 2021-0 Yes [id number] 650mg Take 2 [facility] en 2-01 tablets by ity of (TYLENOL) 00:00: mouth [place] 325 mg 00 every 6 Medical tablet (six) Branch hours as needed for Pain (scale 4-6). acetaminoph 2021-0 Yes [id number] 650mg Take 2 [facility] en 2-01 tablets by ity of (TYLENOL) 00:00: mouth [place] 325 mg 00 every 6 Medical tablet (six) Branch hours as needed for Pain (scale 4-6). acetaminoph 2021-0 Yes [id number] 650mg Take 2 [facility] en 2-01 tablets by ity of (TYLENOL) 00:00: mouth [place] 325 mg 00 every 6 Medical tablet (six) Branch hours as needed for Pain (scale 4-6). acetaminoph 2021-0 Yes [id number] 650mg Take 2 [facility] en 2-01 tablets by ity of (TYLENOL) 00:00: mouth [place] 325 mg 00 every 6 Medical tablet (six) Branch hours as needed for Pain (scale 4-6). acetaminoph 2-0 Yes [id number] 650mg Take 2 [facility] en 2-01 tablets by ity of (TYLENOL) 00:00: mouth [place] 325 mg 00 every 6 Medical tablet (six) Branch hours as needed for Pain (scale 4-6). acetaminoph 2021-0 Yes [id number] 650mg Take 2 [facility] en 2-01 tablets by ity of (TYLENOL) 00:00: mouth [place] 325 mg 00 every 6 Medical tablet (six) Branch hours as needed for Pain (scale 4-6). acetaminoph 2022-0 Yes [id number] 650mg Take 2 [facility] en 2-01 tablets by ity of (TYLENOL) 00:00: mouth [place] 325 mg 00 every 6 Medical tablet (six) Branch hours as needed for Pain (scale 4-6). acetaminoph 2022-0 Yes [id number] 650mg Take 2 [facility] en 2-01 tablets by ity of (TYLENOL) 00:00: mouth [place] 325 mg 00 every 6 Medical tablet (six) Branch hours as needed for Pain (scale 4-6). acetaminoph 2022-0 Yes [id number] 650mg Take 2 [facility] en 2-01 tablets by ity of (TYLENOL) 00:00: mouth [place] 325 mg 00 every 6 Medical tablet (six) Branch hours as needed for Pain (scale 4-6). acetaminoph 2022-0 Yes [id number] 650mg Take 2 [facility] en 2-01 tablets by ity of (TYLENOL) 00:00: mouth [place] 325 mg 00 every 6 Medical tablet (six) Branch hours as needed for Pain (scale 4-6). acetaminoph 2022-0 Yes [id number] 650mg Take 2 [facility] en 2-01 tablets by ity of (TYLENOL) 00:00: mouth [place] 325 mg 00 every 6 Medical tablet (six) Branch hours as needed for Pain (scale 4-6). acetaminoph 2022-0 Yes [id number] 650mg Take 2 [facility] en 2-01 tablets by ity of (TYLENOL) 00:00: mouth [place] 325 mg 00 every 6 Medical tablet (six) Branch hours as needed for Pain (scale 4-6). acetaminoph 2022-0 Yes [id number] 650mg Take 2 [facility] en 2-01 tablets by ity of (TYLENOL) 00:00: mouth [place] 325 mg 00 every 6 Medical tablet (six) Branch hours as needed for Pain (scale 4-6). acetaminoph 2022-0 Yes [id number] 650mg Take 2 [facility] en 2-01 tablets by ity of (TYLENOL) 00:00: mouth [place] 325 mg 00 every 6 Medical tablet (six) Branch hours as needed for Pain (scale 4-6). acetaminoph 2022-0 Yes [id number] 650mg Take 2 [facility] en 2-01 tablets by ity of (TYLENOL) 00:00: mouth [place] 325 mg 00 every 6 Medical tablet (six) Branch hours as needed for Pain (scale 4-6). acetaminoph 2022-0 Yes [id number] 650mg Take 2 [facility] en 2-01 tablets by ity of (TYLENOL) 00:00: mouth [place] 325 mg 00 every 6 Medical tablet (six) Branch hours as needed for Pain (scale 4-6). acetaminoph 2-0 Yes [id number] 650mg Take 2 [facility] en 2-01 tablets by ity of (TYLENOL) 00:00: mouth [place] 325 mg 00 every 6 Medical tablet (six) Branch hours as needed for Pain (scale 4-6). acetaminoph 2-0 Yes [id number] 650mg Take 2 [facility] en 2-01 tablets by ity of (TYLENOL) 00:00: mouth [place] 325 mg 00 every 6 Medical tablet (six) Branch hours as needed for Pain (scale 4-6). acetaminoph 2021-0 Yes [id number] 650mg Take 2 [facility] en 2-01 tablets by ity of (TYLENOL) 00:00: mouth [place] 325 mg 00 every 6 Medical tablet (six) Branch hours as needed for Pain (scale 4-6). acetaminoph 2021-0 Yes [id number] 650mg Take 2 [facility] en 2-01 tablets by ity of (TYLENOL) 00:00: mouth [place] 325 mg 00 every 6 Medical tablet (six) Branch hours as needed for Pain (scale 4-6). acetaminoph 2021-0 Yes [id number] 650mg Take 2 [facility] en 2-01 tablets by ity of (TYLENOL) 00:00: mouth [place] 325 mg 00 every 6 Medical tablet (six) Branch hours as needed for Pain (scale 4-6). acetaminoph 2022-0 Yes [id number] 650mg Take 2 [facility] en 2-01 tablets by ity of (TYLENOL) 00:00: mouth [place] 325 mg 00 every 6 Medical tablet (six) Branch hours as needed for Pain (scale 4-6). acetaminoph 2022-0 Yes [id number] 650mg Take 2 [facility] en 2-01 tablets by ity of (TYLENOL) 00:00: mouth [place] 325 mg 00 every 6 Medical tablet (six) Branch hours as needed for Pain (scale 4-6). acetaminoph 2021-0 Yes [id number] 650mg Take 2 [facility] en 2-01 tablets by ity of (TYLENOL) 00:00: mouth [place] 325 mg 00 every 6 Medical tablet (six) Branch hours as needed for Pain (scale 4-6). acetaminoph 2021-0 Yes [id number] 650mg Take 2 [facility] en 2-01 tablets by ity of (TYLENOL) 00:00: mouth [place] 325 mg 00 every 6 Medical tablet (six) Branch hours as needed for Pain (scale 4-6). acetaminoph 2021-0 Yes [id number] 650mg Take 2 [facility] en 2-01 tablets by ity of (TYLENOL) 00:00: mouth [place] 325 mg 00 every 6 Medical tablet (six) Branch hours as needed for Pain (scale 4-6). LISINOPRIL 2021-0 2021- No [id number] Take 1 [facility] 5 mg tablet 2-01 10-30 tablet by it y of 00:00: 04:59 mouth once [place] 00 :00 daily Medical Branch LISINOPRIL 2022-0 2021- No [id number] Take 1 [facility] 5 mg tablet 2-01 10-30 tablet by it y of 00:00: 04:59 mouth once [place] 00 :00 daily Medical Branch LISINOPRIL 2022-0 2021- No [id number] Take 1 [facility] 5 mg tablet 2-01 10-30 tablet by it y of 00:00: 04:59 mouth once [place] 00 :00 daily Medical Branch LISINOPRIL 2022-0 2021- No [id number] Take 1 [facility] 5 mg tablet 2-01 10-30 tablet by it y of 00:00: 04:59 mouth once [place] 00 :00 daily Medical Branch LISINOPRIL 2022-0 2021- No [id number] Take 1 [facility] 5 mg tablet 2-01 10-30 tablet by it y of 00:00: 04:59 mouth once [place] 00 :00 daily Medical Branch LISINOPRIL 2022-0 2021- No [id number] Take 1 [facility] 5 mg tablet 2-01 10-30 tablet by it y of 00:00: 04:59 mouth once [place] 00 :00 daily Medical Branch LISINOPRIL 2022-0 2- No [id number] Take 1 [facility] 5 mg tablet 2-01 10-30 tablet by it y of 00:00: 04:59 mouth once [place] 00 :00 daily Medical Branch LISINOPRIL 0 2021- No [id number] Take 1 [facility] 5 mg tablet 04-05 tablet by it y of 00:00: 00:00 mouth once [place] 00 :00 daily Medical Branch insulin 2020-03 Yes [id number] 10U inject 10 U nivers glargine 0-29 Units ity of (LANTUS 00:00: under the [place] U-100 00 skin at Medical INSULIN) bedtime. Branch 100 unit/mL injection glipiZIDE 2020-03 Yes [id number] TAKE 1 [facility] mg tablet 0-29 TABLET BY ity o f 00:00: MOUTH TWICE Medical DAILY Branch BEFORE BREAKFAST AND BEFORE SUPPER insulin 2020-03 Yes [id number] 10U inject 10 U nivers glargine 0-29 Units ity of (LANTUS 00:00: under the [place] U-100 00 skin at Medical INSULIN) bedtime. Branch 100 unit/mL injection glipiZIDE 2020-03 Yes [id number] TAKE 1 [facility] mg tablet 0-29 TABLET BY ity o f 00:00: MOUTH TWICE Medical DAILY Branch BEFORE BREAKFAST AND BEFORE SUPPER insulin 2020-03 Yes [id number] 10U inject 10 U nivers glargine 0-29 Units ity of (LANTUS 00:00: under the [place] U-100 00 skin at Medical INSULIN) bedtime. Branch 100 unit/mL injection glipiZIDE 2020-03 Yes [id number] TAKE 1 [facility] mg tablet 0-29 TABLET BY ity o f 00:00: MOUTH TWICE Medical DAILY Branch BEFORE BREAKFAST AND BEFORE SUPPER insulin 2020-03 Yes [id number] 10U inject 10 U nivers glargine 0-29 Units ity of (LANTUS 00:00: under the [place] U-100 00 skin at Medical INSULIN) bedtime. Branch 100 unit/mL injection glipiZIDE 2020-03 Yes [id number] TAKE 1 [facility] mg tablet 0-29 TABLET BY ity o f 00:00: MOUTH TWICE Medical DAILY Branch BEFORE BREAKFAST AND BEFORE SUPPER insulin 2020-03 Yes [id number] 10U inject 10 U nivers glargine 0-29 Units ity of (LANTUS 00:00: under the [place] U-100 00 skin at Medical INSULIN) bedtime. Branch 100 unit/mL injection glipiZIDE 2020-03 Yes [id number] TAKE 1 [facility] mg tablet 0-29 TABLET BY ity o f 00:00: MOUTH [place] 00 TWICE Medical DAILY Branch BEFORE BREAKFAST AND BEFORE SUPPER insulin 2020-03 Yes [id number] 10U inject 10 U nivers glargine 0-29 Units ity of (LANTUS 00:00: under the [place] U-100 00 skin at Medical INSULIN) bedtime. Branch 100 unit/mL injection glipiZIDE 2020-03 Yes [id number] TAKE 1 [facility] mg tablet 0-29 TABLET BY ity o f 00:00: MOUTH [place] 00 TWICE Medical DAILY Branch BEFORE BREAKFAST AND BEFORE SUPPER insulin 2020-03 Yes [id number] 10U inject 10 U nivers glargine 0-29 Units ity of (LANTUS 00:00: under the [place] U-100 00 skin at Medical INSULIN) bedtime. Branch 100 unit/mL injection glipiZIDE 2020-03 Yes [id number] TAKE 1 [facility] mg tablet 0-29 TABLET BY ity o f 00:00: MOUTH [place] 00 TWICE Medical DAILY Branch BEFORE BREAKFAST AND BEFORE SUPPER insulin 2020-03 Yes [id number] 10U inject 10 U nivers glargine 0-29 Units ity of (LANTUS 00:00: under the [place] U-100 00 skin at Medical INSULIN) bedtime. Branch 100 unit/mL injection glipiZIDE 2020-03 Yes [id number] TAKE 1 [facility] mg tablet 0-29 TABLET BY ity o f 00:00: MOUTH [place] 00 TWICE Medical DAILY Branch BEFORE BREAKFAST AND BEFORE SUPPER insulin 2020-03 Yes [id number] 10U inject 10 U nivers glargine 0-29 Units ity of (LANTUS 00:00: under the [place] U-100 00 skin at Medical INSULIN) bedtime. Branch 100 unit/mL injection glipiZIDE 2020-03 Yes [id number] TAKE 1 [facility] mg tablet 0-29 TABLET BY ity o f 00:00: MOUTH [place] 00 TWICE Medical DAILY Branch BEFORE BREAKFAST AND BEFORE SUPPER insulin 2020-03 Yes [id number] 10U inject 10 U nivers glargine 0-29 Units ity of (LANTUS 00:00: under the [place] U-100 00 skin at Medical INSULIN) bedtime. Branch 100 unit/mL injection glipiZIDE 2020-03 Yes [id number] TAKE 1 [facility] mg tablet 0-29 TABLET BY ity o f 00:00: MOUTH [place] 00 TWICE Medical DAILY Branch BEFORE BREAKFAST AND BEFORE SUPPER insulin 2020-03 Yes [id number] 10U inject 10 U nivers glargine 0-29 Units ity of (LANTUS 00:00: under the [place] U-100 00 skin at Medical INSULIN) bedtime. Branch 100 unit/mL injection glipiZIDE 2020-03 Yes [id number] TAKE 1 [facility] mg tablet 0-29 TABLET BY ity o f 00:00: MOUTH [place] 00 TWICE Medical DAILY Branch BEFORE BREAKFAST AND BEFORE SUPPER insulin 2020-03 Yes [id number] 10U inject 10 U nivers glargine 0-29 Units ity of (LANTUS 00:00: under the [place] U-100 00 skin at Medical INSULIN) bedtime. Branch 100 unit/mL injection insulin 2020-03 Yes [id number] 10U inject 10 U nivers glargine 0-29 Units ity of (LANTUS 00:00: under the [place] U-100 00 skin at Medical INSULIN) bedtime. Branch 100 unit/mL injection insulin 2020-03 Yes [id number] 10U inject 10 U nivers glargine 0-29 Units ity of (LANTUS 00:00: under the [place] U-100 00 skin at Medical INSULIN) bedtime. Branch 100 unit/mL injection insulin 2020-03 Yes [id number] 10U inject 10 U nivers glargine 0-29 Units ity of (LANTUS 00:00: under the [place] U-100 00 skin at Medical INSULIN) bedtime. Branch 100 unit/mL injection insulin 2020-03 Yes [id number] 10U inject 10 U nivers glargine 0-29 Units ity of (LANTUS 00:00: under the [place] U-100 00 skin at Medical INSULIN) bedtime. Branch 100 unit/mL injection insulin 2020-03 Yes [id number] 10U inject 10 U nivers glargine 0-29 Units ity of (LANTUS 00:00: under the [place] U-100 00 skin at Medical INSULIN) bedtime. Branch 100 unit/mL injection insulin 2020-03 Yes [id number] 10U inject 10 U nivers glargine 0-29 Units ity of (LANTUS 00:00: under the [place] U-100 00 skin at Medical INSULIN) bedtime. Branch 100 unit/mL injection insulin 2020-03 Yes [id number] 10U inject 10 U nivers glargine 0-29 Units ity of (LANTUS 00:00: under the [place] U-100 00 skin at Medical INSULIN) bedtime. Branch 100 unit/mL injection insulin 2020-03 Yes [id number] 10U inject 10 U nivers glargine 0-29 Units ity of (LANTUS 00:00: under the [place] U-100 00 skin at Medical INSULIN) bedtime. Branch 100 unit/mL injection insulin 2020-03 Yes [id number] 10U inject 10 U nivers glargine 0-29 Units ity of (LANTUS 00:00: under the [place] U-100 00 skin at Medical INSULIN) bedtime. Branch 100 unit/mL injection insulin 2020-03 Yes [id number] 10U inject 10 U nivers glargine 0-29 Units ity of (LANTUS 00:00: under the [place] U-100 00 skin at Medical INSULIN) bedtime. Branch 100 unit/mL injection insulin 2020-03 Yes [id number] 10U inject 10 U nivers glargine 0-29 Units ity of (LANTUS 00:00: under the [place] U-100 00 skin at Medical INSULIN) bedtime. Branch 100 unit/mL injection insulin 2020-03 Yes [id number] 10U inject 10 U nivers glargine 0-29 Units ity of (LANTUS 00:00: under the [place] U-100 00 skin at Medical INSULIN) bedtime. Branch 100 unit/mL injection insulin 2020-03 Yes [id number] 10U inject 10 U nivers glargine 0-29 Units ity of (LANTUS 00:00: under the [place] U-100 00 skin at Medical INSULIN) bedtime. Branch 100 unit/mL injection insulin 2020-03 Yes [id number] 10U inject 10 U nivers glargine 0-29 Units ity of (LANTUS 00:00: under the [place] U-100 00 skin at Medical INSULIN) bedtime. Branch 100 unit/mL injection insulin 2020-03 Yes [id number] 10U inject 10 U nivers glargine 0-29 Units ity of (LANTUS 00:00: under the [place] U-100 00 skin at Medical INSULIN) bedtime. Branch 100 unit/mL injection insulin 2020-03- No [id number] 10U inject 10 [facility] glargine 0-29 11-02 Units ity of (LANTUS 00:00: 00:00 under the [facility] U-100 00 :00 skin at Medical INSULIN) bedtime. Branch 100 unit/mL injection glipiZIDE 5 2020-03- No [id number] TAKE 1 [facility] mg tablet - TABLET BY ity of 00:00: 00:00 MOUTH [place] 00 :00 TWICE Medical DAILY Branch BEFORE BREAKFAST AND BEFORE SUPPER FUROSEMIDE 2020-0 Yes [id number] Take 1 U nivers 40 mg 9-21 tablet by ity of tablet 00:00: mouth once [place] daily Medical Branch FENOFIBRATE 2020-0 Yes [id number] Take 1 [facility] 145 mg 9-21 tablet by ity of tablet 00:00: mouth once [place] daily Medical Branch FUROSEMIDE 2020-0 Yes [id number] Take 1 U nivers 40 mg 9-21 tablet by ity of tablet 00:00: mouth once [place] daily Medical Branch FENOFIBRATE 2020-0 Yes [id number] Take 1 [facility] 145 mg 9-21 tablet by ity of tablet 00:00: mouth once [place] daily Medical Branch FUROSEMIDE 2020-0 Yes [id number] Take 1 U nivers 40 mg 9-21 tablet by ity of tablet 00:00: mouth once [place] daily Medical Branch FENOFIBRATE 2020-0 Yes [id number] Take 1 [facility] 145 mg 9-21 tablet by ity of tablet 00:00: mouth once [place] daily Medical Branch FUROSEMIDE 2020-0 Yes [id number] Take 1 U nivers 40 mg 9-21 tablet by ity of tablet 00:00: mouth once [place] daily Medical Branch FENOFIBRATE 2020-0 Yes [id number] Take 1 [facility] 145 mg 9-21 tablet by ity of tablet 00:00: mouth once [place] daily Medical Branch FUROSEMIDE 2020-0 Yes [id number] Take 1 U nivers 40 mg 9-21 tablet by [facility] tablet 00:00: mouth once daily [facility] FENOFIBRATE 2021-0 Yes [id number] Take 1 [facility] 145 mg 9-21 tablet by [facility] tablet 00:00: mouth once daily [facility] FUROSEMIDE 2021-0 Yes [id number] Take 1 [facility] 40 mg 9-21 tablet by [facility] tablet 00:00: mouth once daily [facility] FENOFIBRATE 2021-0 Yes [id number] Take 1 [facility] 145 mg 9-21 tablet by [facility] tablet 00:00: mouth once daily [facility] FUROSEMIDE 2021-0 Yes [id number] Take 1 [facility] 40 mg 9-21 tablet by [facility] tablet 00:00: mouth once daily [facility] FENOFIBRATE 2021-0 Yes [id number] Take 1 [facility] 145 mg 9-21 tablet by [facility] tablet 00:00: mouth once daily [facility] FUROSEMIDE 2021-0 Yes [id number] Take 1 [facility] 40 mg 9-21 tablet by [facility] tablet 00:00: mouth once daily [facility] FENOFIBRATE 2021-0 Yes [id number] Take 1 [facility] 145 mg 9-21 tablet by [facility] tablet 00:00: mouth once daily [facility] FUROSEMIDE 2021-0 Yes [id number] Take 1 [facility] 40 mg 9-21 tablet by [facility] tablet 00:00: mouth once daily [facility] FENOFIBRATE 2021-0 Yes [id number] Take 1 [facility] 145 mg 9-21 tablet by [facility] tablet 00:00: mouth once daily [facility] FUROSEMIDE 2021-0 Yes [id number] Take 1 [facility] 40 mg 9-21 tablet by [facility] tablet 00:00: mouth once daily [facility] FENOFIBRATE 2021-0 Yes [id number] Take 1 [facility] 145 mg 9-21 tablet by [facility] tablet 00:00: mouth once daily [facility] FUROSEMIDE 2021-0 Yes [id number] Take 1 [facility] 40 mg 9-21 tablet by [facility] tablet 00:00: mouth once daily [facility] FENOFIBRATE 2021-0 Yes [id number] Take 1 [facility] 145 mg 9-21 tablet by [facility] tablet 00:00: mouth once daily [facility] FUROSEMIDE 2021-0 Yes [id number] Take 1 [facility] 40 mg 9-21 tablet by [facility] tablet 00:00: mouth once daily [facility] FENOFIBRATE 2021-0 Yes [id number] Take 1 [facility] 145 mg 9-21 tablet by [facility] tablet 00:00: mouth once daily [facility] FUROSEMIDE 2021-0 Yes [id number] Take 1 [facility] 40 mg 9-21 tablet by [facility] tablet 00:00: mouth once daily [facility] FENOFIBRATE 2021-0 Yes [id number] Take 1 [facility] 145 mg 9-21 tablet by [facility] tablet 00:00: mouth once daily [facility] FUROSEMIDE 2021-0 Yes [id number] Take 1 [facility] 40 mg 9-21 tablet by [facility] tablet 00:00: mouth once daily [facility] FUROSEMIDE 2021-0 Yes [id number] Take 1 [facility] 40 mg 9-21 tablet by [facility] tablet 00:00: mouth once daily [facility] FUROSEMIDE 2021-0 Yes [id number] Take 1 [facility] 40 mg 9-21 tablet by [facility] tablet 00:00: mouth once daily [facility] FUROSEMIDE 2021-0 Yes [id number] Take 1 [facility] 40 mg 9-21 tablet by [facility] tablet 00:00: mouth once daily [facility] FUROSEMIDE 2021-0 Yes [id number] Take 1 [facility] 40 mg 9-21 tablet by [facility] tablet 00:00: mouth once daily [facility] FUROSEMIDE 2021-0 Yes [id number] Take 1 [facility] 40 mg 9-21 tablet by [facility] tablet 00:00: mouth once daily [facility] FUROSEMIDE 2021-0 Yes [id number] Take 1 [facility] 40 mg 9-21 tablet by [facility] tablet 00:00: mouth once daily [facility] FUROSEMIDE 2021-0 Yes [id number] Take 1 [facility] 40 mg 9-21 tablet by [facility] tablet 00:00: mouth once daily [facility] FUROSEMIDE 2021-0 Yes [id number] Take 1 [facility] 40 mg 9-21 tablet by [facility] tablet 00:00: mouth once daily [facility] FUROSEMIDE 2021-0 Yes [id number] Take 1 [facility] 40 mg 9-21 tablet by [facility] tablet 00:00: mouth once [place] 00 daily [facility] FUROSEMIDE 2021-0 Yes [id number] Take 1 [facility] 40 mg 9-21 tablet by [facility] tablet 00:00: mouth once [place] 00 daily [facility] FUROSEMIDE 2021-0 Yes [id number] Take 1 [facility] 40 mg 9-21 tablet by [facility] tablet 00:00: mouth once [place] 00 daily [facility] FUROSEMIDE 2021-0 Yes [id number] Take 1 [facility] 40 mg 9-21 tablet by [facility] tablet 00:00: mouth once 00 daily [facility] FUROSEMIDE 2021-0 Yes [id number] Take 1 [facility] 40 mg 9-21 tablet by [facility] tablet 00:00: mouth once 00 daily [facility] FUROSEMIDE 2021-0 2022- No [id number] Take 1 [facility] 40 mg 9-21 11-02 tablet by [facility] tablet 00:00: 00:[place] mouth [place] 00 :00 daily [facility] FENOFIBRATE 2021-0 2022- No [id number] Take 1 [facility] 145 mg 9-21 09-27 tablet by [facility] tablet 00:00: 00:[place] mouth [place] 00 :00 daily [facility] FENOFIBRATE 2021-0 2022- No [id number] Take 1 [facility] 145 mg 9-21 09-27 tablet by [facility] tablet 00:00: 00:[place] mouth [place] 00 :00 daily [facility] vitamin 2021-0 Yes [id number] 500ug Take 1 [facility] vers B-12 500 9-11 tablet by [facility] of mcg tablet 00:00: mouth [place] 00 daily. [facility] vitamin 2021-0 Yes [id number] 500ug Take 1 [facility] vers B-12 500 9-11 tablet by [facility] of mcg tablet 00:00: mouth [place] 00 daily. [facility] vitamin 2021-0 Yes [id number] 500ug Take 1 [facility] vers B-12 500 9-11 tablet by [facility] of mcg tablet 00:00: mouth [place] 00 daily. [facility] vitamin 2021-0 Yes [id number] 500ug Take 1 [facility] vers B-12 500 9-11 tablet by [facility] of mcg tablet 00:00: mouth [place] 00 daily. [facility] vitamin 2021-0 Yes [id number] 500ug Take 1 [facility] vers B-12 500 9-11 tablet by [facility] of mcg tablet 00:00: mouth [place] 00 daily. [facility] vitamin 2021-0 Yes [id number] 500ug Take 1 [facility] vers B-12 500 9-11 tablet by [facility] of mcg tablet 00:00: mouth [place] 00 daily. [facility] vitamin 2021-0 Yes [id number] 500ug Take 1 [facility] vers B-12 500 9-11 tablet by [facility] of mcg tablet 00:00: mouth [place] 00 daily. [facility] vitamin 2021-0 Yes [id number] 500ug Take 1 [facility] vers B-12 500 9-11 tablet by [facility] of mcg tablet 00:00: mouth [place] 00 daily. [facility] vitamin 2021-0 Yes [id number] 500ug Take 1 [facility] vers B-12 500 9-11 tablet by [facility] of mcg tablet 00:00: mouth [place] 00 daily. [facility] vitamin 2021-0 Yes [id number] 500ug Take 1 [facility] vers B-12 500 9-11 tablet by [facility] of mcg tablet 00:00: mouth [place] 00 daily. [facility] vitamin 2021-0 Yes [id number] 500ug Take 1 [facility] vers B-12 500 9-11 tablet by [facility] of mcg tablet 00:00: mouth [place] 00 daily. [facility] vitamin 2021-0 Yes [id number] 500ug Take 1 [facility] vers B-12 500 9-11 tablet by [facility] of mcg tablet 00:00: mouth [place] 00 daily. [facility] vitamin 2021-0 Yes [id number] 500ug Take 1 [facility] vers B-12 500 9-11 tablet by [facility] of mcg tablet 00:00: mouth [place] 00 daily. [facility] vitamin 2021-0 Yes [id number] 500ug Take 1 [facility] vers B-12 500 9-11 tablet by [facility] of mcg tablet 00:00: mouth [place] 00 daily. [facility] vitamin 2021-0 Yes [id number] 500ug Take 1 [facility] vers B-12 500 9-11 tablet by [facility] of mcg tablet 00:00: mouth [place] 00 daily. [facility] vitamin 2021-0 Yes [id number] 500ug Take 1 [facility] vers B-12 500 9-11 tablet by [facility]y of mcg tablet 00:00: mouth [place] 00 daily. [facility] vitamin 2021-0 Yes [id number] 500ug Take 1 [facility] vers B-12 500 9-11 tablet by ity of mcg tablet 00:00: mouth [place] 00 daily. [facility] Branch vitamin 2021-0 Yes [id number] 500ug Take 1 [facility] vers B-12 500 9-11 tablet by [facility]y of mcg tablet 00:00: mouth [place] 00 daily. [facility] vitamin 2021- No [id number] 500ug Take 1 [facility] B-12 500 11-13 tablet by ity o f mcg tablet 00:00: 00:00 mouth [place] 00 :00 daily. [facility] vitamin 2021- No [id number] 500ug Take 1 [facility] [place] B-12 500 11-13 tablet by ity o f mcg tablet 00:00: 00:00 mouth [place] 00 :00 daily. [facility] vitamin 2021- No [id number] 500ug Take 1 [facility] [place] B-12 500 11-13 tablet by ity o f mcg tablet 00:00: 00:00 mouth [place] 00 :00 daily. [facility] vitamin 2021- No [id number] 500ug Take 1 [facility] [place] B-12 500 11-13 tablet by ity o f mcg tablet 00:00: 00:00 mouth [place] 00 :00 daily. [facility] tamsulosin Yes [id number] .4mg Take 1 [facility] (FLOMAX) 6-17 9102 capsule by ity o f 0.4 mg 24 00:00: mouth [place] hr capsule 00 daily. [facility] tamsulosin Yes [id number] .4mg Take 1 [facility] (FLOMAX) 6-17 9102 capsule by ity o f 0.4 mg 24 00:00: mouth [place] hr capsule 00 daily. [facility] tamsulosin Yes [id number] .4mg Take 1 [facility] (FLOMAX) 6-17 9102 capsule by ity o f 0.4 mg 24 00:00: mouth [place] hr capsule 00 daily. [facility] tamsulosin Yes [id number] .4mg Take 1 [facility] (FLOMAX) 6-17 9102 capsule by ity o f 0.4 mg 24 00:00: mouth [place] hr capsule 00 daily. [facility] tamsulosin Yes [id number] .4mg Take 1 [facility] (FLOMAX) 6-17 9102 capsule by ity o f 0.4 mg 24 00:00: mouth [place] hr capsule 00 daily. [facility] tamsulosin Yes [id number] .4mg Take 1 [facility] (FLOMAX) 6-17 9102 capsule by ity o f 0.4 mg 24 00:00: mouth [place] hr capsule 00 daily. [facility] tamsulosin Yes [id number] .4mg Take 1 [facility] (FLOMAX) 6-17 9102 capsule by ity o f 0.4 mg 24 00:00: mouth [place] hr capsule 00 daily. [facility] tamsulosin Yes [id number] .4mg Take 1 [facility] (FLOMAX) 6-17 9102 capsule by ity o f 0.4 mg 24 00:00: mouth [place] hr capsule 00 daily. [facility] tamsulosin Yes [id number] .4mg Take 1 [facility] (FLOMAX) 6-17 9102 capsule by ity o f 0.4 mg 24 00:00: mouth [place] hr capsule 00 daily. [facility] tamsulosin Yes [id number] .4mg Take 1 [facility] (FLOMAX) 6-17 9102 capsule by ity o f 0.4 mg 24 00:00: mouth [place] hr capsule 00 daily. [facility] tamsulosin Yes [id number] .4mg Take 1 [facility] (FLOMAX) 6-17 9102 capsule by ity o f 0.4 mg 24 00:00: mouth [place] hr capsule 00 daily. [facility] tamsulosin Yes [id number] .4mg Take 1 [facility] (FLOMAX) 6-17 9102 capsule by ity o f 0.4 mg 24 00:00: mouth [place] hr capsule 00 daily. [facility] Branch tamsulosin 2021- No [id number] .4mg Take 1 [facility] (FLOMAX) 6-17 -26 9102 capsule by ity of 0.4 mg 24 00:00: 00:00 mouth [place] hr capsule 00 :00 daily. [facility] Branch FLUoxetine 0 Yes 50mg Take 50 mg U nivers 20 mg 2-28 by mouth ity of capsule 00:00: daily. [facility] FLUoxetine 2020-0 Yes 50mg Take 50 mg U nivers 20 mg 2-28 by mouth ity of capsule 00:00: daily. [facility] FLUoxetine 2020-0 Yes 50mg Take 50 mg U nivers 20 mg 2-28 by mouth ity of capsule 00:00: daily. [facility] FLUoxetine 2020-0 Yes 50mg Take 50 mg [facility] nivers 20 mg 2-28 by mouth ity of capsule 00:00: daily. [place] [address] Medical Branch FLUoxetine 2020-0 Yes 50mg Take 50 mg U nivers 20 mg 2-28 by mouth ity of capsule 00:00: daily. [place] [facility] FLUoxetine 2020-0 Yes 50mg Take 50 mg U nivers 20 mg 2-28 by mouth ity of capsule 00:00: daily. [place] [facility] Branch FLUoxetine 2020-0 Yes 50mg Take 50 mg U nivers 20 mg 2-28 by mouth ity of capsule 00:00: daily. [address] Branch FLUoxetine 2020-0 2022- No 50mg Take 50 mg [facility] 20 mg 2-28 - by mouth ity of capsule 00:00: 00:00 daily. [place] 00 :00 Medical Branch nitroglycer 2018-[id number] 1 [facility] in 0.4 mg 5-22 tablet ity of sublingual 00:00: under the [place] tablet 00 tongue Medical every 5 Branch (five) minutes as needed for Chest pain. nitroglycer 2018-[id number] 1 [facility] in 0.4 mg 5-22 tablet ity of sublingual 00:00: under the [place] tablet 00 tongue Medical every 5 Branch (five) minutes as needed for Chest pain. nitroglycer 2018-[id number] 1 [facility] in 0.4 mg 5-22 tablet ity of sublingual 00:00: under the [place] tablet 00 tongue Medical every 5 Branch (five) minutes as needed for Chest pain. nitroglycer 2018-[id number] 1 [facility] in 0.4 mg 5-22 tablet ity of sublingual 00:00: under the [place] tablet 00 tongue Medical every 5 Branch (five) minutes as needed for Chest pain. nitroglycer 2018-[id number] 1 [facility] in 0.4 mg 5-22 tablet ity of sublingual 00:00: under the [place] tablet 00 tongue Medical every 5 Branch (five) minutes as needed for Chest pain. nitroglycer 2018-[id number] 1 [facility] in 0.4 mg 5-22 tablet ity of sublingual 00:00: under the [place] tablet 00 tongue Medical every 5 Branch (five) minutes as needed for Chest pain. nitroglycer 2018-[id number] 1 [facility] in 0.4 mg 5-22 tablet ity of sublingual 00:00: under the [place] tablet 00 tongue Medical every 5 Branch (five) minutes as needed for Chest pain. nitroglycer 2018-[id number] 1 [facility] in 0.4 mg 5-22 tablet ity of sublingual 00:00: under the [place] tablet 00 tongue Medical every 5 Branch (five) minutes as needed for Chest pain. nitroglycer 2018-[id number] 1 [facility] in 0.4 mg 5-22 tablet ity of sublingual 00:00: under the [place] tablet 00 tongue Medical every 5 Branch (five) minutes as needed for Chest pain. nitroglycer 2018-[id number] 1 [facility] in 0.4 mg 5-22 tablet ity of sublingual 00:00: under the [place] tablet 00 tongue Medical every 5 Branch (five) minutes as needed for Chest pain. nitroglycer 2018-[id number] 1 [facility] in 0.4 mg 5-22 tablet ity of sublingual 00:00: under the [place] tablet 00 tongue Medical every 5 Branch (five) minutes as needed for Chest pain. nitroglycer 2018-[id number] 1 [facility] in 0.4 mg 5-22 tablet ity of sublingual 00:00: under the [place] tablet 00 tongue Medical every 5 Branch (five) minutes as needed for Chest pain. nitroglycer 2018-[id number] 1 [facility] in 0.4 mg 5-22 tablet ity of sublingual 00:00: under the [place] tablet 00 tongue Medical every 5 Branch (five) minutes as needed for Chest pain. nitroglycer 2018-[id number] 1 [facility] in 0.4 mg 5-22 tablet ity of sublingual 00:00: under the [place] tablet 00 tongue Medical every 5 Branch (five) minutes as needed for Chest pain. nitroglycer 2018-[id number] 1 [facility] in 0.4 mg 5-22 tablet ity of sublingual 00:00: under the [place] tablet 00 tongue Medical every 5 Branch (five) minutes as needed for Chest pain. nitroglycer Yes [id number] .4mg Place 1 [facility] in 0.4 mg 5-22 tablet ity of sublingual 00:00: under the [place] tablet 00 tongue Medical every 5 Branch (five) minutes as needed for Chest pain. nitroglycer Yes [id number] .4mg Place 1 [facility] in 0.4 mg 5-22 tablet ity of sublingual 00:00: under the [place] tablet 00 tongue Medical every 5 Branch (five) minutes as needed for Chest pain. nitroglycer Yes [id number] .4mg Place 1 [facility] in 0.4 mg 5-22 tablet ity of sublingual 00:00: under the [place] tablet 00 tongue Medical every 5 Branch (five) minutes as needed for Chest pain. nitroglycer 2021- No [id number] .4mg Place 1 [facility] in 0.4 mg 5-22 09-30 tablet ity of sublingual 00:00: 00:00 under the [place] tablet 00 :00 tongue Medical every 5 Branch (five) minutes as needed for Chest pain. nitroglycer 2021- No [id number] .4mg Place 1 [facility] in 0.4 mg 5-22 09-30 tablet ity of sublingual 00:00: 00:00 under the [place] tablet 00 :00 tongue Medical every 5 Branch (five) minutes as needed for Chest pain. nitroglycer 2021- No [id number] .4mg Place 1 [facility] in 0.4 mg 5-22 09-30 tablet ity of sublingual 00:00: 00:00 under the [place] tablet 00 :00 tongue Medical every 5 Branch (five) minutes as needed for Chest pain. nitroglycer 2021- No [id number] .4mg Place 1 [facility] in 0.4 mg 5-22 09-30 tablet ity of sublingual 00:00: 00:00 under the [place] tablet 00 :00 tongue Medical every 5 Branch (five) minutes as needed for Chest pain. multivitami Yes 1{tbl} QD Take [address] [facility] per 2-09 tablet by [facility] tablet 11:48: mouth Medical 19 daily. [place] multivitami 2018-0 Yes 1{tbl} QD Take [address] [facility] per 04-13 tablet by [facility] tablet 11:48: mouth Medical 19 daily. Center Immunizations Ordered Immunization Filled Immunization Date Status Commen ts Source Name Name Influenza Virus 2020-12-02 Completed [facility] Vacc[facility] .5 mL IM 00:00:00 [place] [facility] Influenza Virus 2020-12-02 Completed [facility] of Vaccine [facility] .5 mL IM 00:00:00 [facility] Influenza Virus 2020-12-02 Completed [facility] of Vaccine [facility] .5 mL IM 00:00:00 [facility] Influenza Virus 2020-12-02 Completed [facility] Vaccine [facility] .5 mL IM 00:00:00 [facility] Influenza Virus 2020-12-02 Completed [facility] of Vaccine [facility] .5 mL IM 00:00:00 [facility] Influenza Virus 2020-12-02 Completed [facility] of Vaccine [facility] .5 mL IM 00:00:00 [facility] Influenza Virus 2020-12-02 Completed [facility] of Vaccine [facility] .5 mL IM 00:00:00 [facility] Influenza Virus 2020-12-02 Completed [facility] of Vaccine [facility] .5 mL IM 00:00:00 [facility] Influenza Virus 2020-12-02 Completed [facility] of Vaccine Quad .5 mL IM 00:00:00 [facility] Influenza Virus 2020-12-02 Completed [facility] y of Vaccine [facility] .5 mL IM 00:00:00 [facility] Influenza Virus 2020-12-02 Completed [facility] of Vaccine [facility] .5 mL IM 00:00:00 [facility] Influenza Virus 2020-12-02 Completed [facility] of Vaccine [facility] .5 mL IM 00:00:00 [facility] Influenza Virus 2020-12-02 Completed [facility] of Vaccine [facility] .5 mL IM 00:00:00 [facility] Influenza Virus 2020-12-02 Completed [facility] y of Vaccine Quad .5 mL IM 00:00:00 [facility] Influenza Virus 2020-12-02 Completed [facility] y of Vaccine Quad .5 mL IM 00:00:00 [facility] Influenza Virus 2020-12-02 Completed [facility] of Vaccine Quad .5 mL IM 00:00:00 [facility] Influenza Virus 2020-12-02 Completed [facility] Vaccine [facility] .5 mL IM 00:00:00 [facility] Influenza Virus 2020-12-02 Completed [facility] of Vaccine [facility] .5 mL IM 00:00:00 [facility] Influenza Virus 2020-12-02 Completed [facility] of Vaccine [facility] .5 mL IM 00:00:00 [facility] Influenza Virus 2020-12-02 Completed [facility] y of Vaccine [facility] .5 mL IM 00:00:00 [facility] Influenza Virus 2020-12-02 Completed [facility] y of Vaccine [facility] .5 mL IM 00:00:00 [facility] Influenza Virus 2020-12-02 Completed [facility] Vaccine [facility] .5 mL IM 00:00:00 [facility] Influenza Virus 2020-12-02 Completed [facility] y of Vaccine [facility] .5 mL IM 00:00:00 [facility] Influenza Virus 2020-12-02 Completed [facility] y of Vaccine [facility] .5 mL IM 00:00:00 [facility] Influenza Virus 2020-12-02 Completed [facility] y of Vaccine [facility] .5 mL IM 00:00:00 [facility] Influenza Virus 2020-12-02 Completed [facility] y of Vaccine [facility] .5 mL IM 00:00:00 [facility] Influenza Virus 2020-12-02 Completed [facility] y of Vaccine [facility] .5 mL IM 00:00:00 [facility] Influenza Virus 2020-12-02 Completed [facility] y of Vaccine [facility] .5 mL IM 00:00:00 [facility] Influenza Virus 2020-12-02 Completed [facility] y of Vaccine [facility] .5 mL IM 00:00:00 [facility] Influenza Virus 2020-12-02 Completed [facility] y of Vaccine [facility] .5 mL IM 00:00:00 [facility] Influenza Virus 2020-12-02 Completed [facility] y of Vaccine [facility] .5 mL IM 00:00:00 [facility] Influenza Virus 2020-12-02 Completed [facility] y of Vaccine Quad .5 mL IM 00:00:00 [facility] Influenza Virus 2020-12-02 Completed [facility] y of Vaccine [facility] .5 mL IM 00:00:00 [facility] Influenza Virus 2020-12-02 Completed [facility] y of Vaccine [facility] .5 mL IM 00:00:00 [facility] Influenza Virus 2020-12-02 Completed [facility] y of Vaccine [facility] .5 mL IM 00:00:00 [facility] Influenza Virus 2020-12-02 Completed [facility] y of Vaccine [facility] .5 mL IM 00:00:00 [facility] Influenza Virus 2020-12-02 Completed [facility] y of Vaccine [facility] .5 mL IM 00:00:00 [facility] Influenza Virus 2020-12-02 Completed [facility] y of Vaccine [facility] .5 mL IM 00:00:00 [facility] Influenza Virus 2020-12-02 Completed [facility] y of Vaccine [facility] .5 mL IM 00:00:00 [facility] Influenza Virus 2020-12-02 Completed [facility] y of Vaccine [facility] .5 mL IM 00:00:00 [facility] Influenza Virus 2020-12-02 Completed [facility] y of Vaccine [facility] .5 mL IM 00:00:00 [facility] Influenza Virus 2020-12-02 Completed [facility] y of Vaccine [facility] .5 mL IM 00:00:00 [facility] Influenza Virus 2020-12-02 Completed [facility] y of Vaccine [facility] .5 mL IM 00:00:00 [facility] Influenza Virus 2020-12-02 Completed [facility] y of Vaccine Quad .5 mL IM 00:00:00 [facility] Influenza Virus 2020-12-02 Completed [facility] y of Vaccine [facility] .5 mL IM 00:00:00 [facility] Influenza Virus 2020-12-02 Completed [facility] y of Vaccine [facility] .5 mL IM 00:00:00 [facility] Influenza Virus 2020-12-02 Completed [facility] y of Vaccine Quad .5 mL IM 00:00:00 [facility] Influenza Virus 2020-12-02 Completed [facility] y of Vaccine Quad .5 mL IM 00:00:00 [facility] Influenza Virus 2020-12-02 Completed [facility] y of Vaccine [facility] .5 mL IM 00:00:00 [facility] Influenza Virus 2020-12-02 Completed [facility] y of Vaccine [facility] .5 mL IM 00:00:00 [facility] Influenza Virus 2020-12-02 Completed [facility] y of Vaccine [facility] .5 mL IM 00:00:00 [facility] Influenza Virus 2020-12-02 Completed [facility] y of Vaccine [facility] .5 mL IM 00:00:00 [facility] Influenza Virus 2020-12-02 Completed [facility] y of Vaccine [facility] .5 mL IM 00:00:00 [facility] Influenza Virus 2020-12-02 Completed [facility] y of Vaccine [facility] .5 mL IM 00:00:00 [facility] Influenza Virus 2020-12-02 Completed [facility] y of Vaccine [facility] .5 mL IM 00:00:00 [facility] Influenza Virus 2020-12-02 Completed [facility] y of Vaccine [facility] .5 mL IM 00:00:00 [facility] Influenza Virus 2020-12-02 Completed [facility] y of Vaccine [facility] .5 mL IM 00:00:00 [facility] Influenza Virus 2020-12-02 Completed [facility] y of Vaccine [facility] .5 mL IM 00:00:00 [facility] Influenza Virus 2020-12-02 Completed [facility] y of Vaccine [facility] .5 mL IM 00:00:00 [facility] Influenza Virus 2020-12-02 Completed [facility] y of Vaccine [facility] .5 mL IM 00:00:00 [facility] Influenza Virus 2020-12-02 Completed [facility] y of Vaccine [facility] .5 mL IM 00:00:00 [facility] Influenza Virus 2020-12-02 Completed [facility] y of Vaccine Quad .5 mL IM 00:00:00 [facility] Influenza Virus 2020-12-02 Completed [facility] y of Vaccine [facility] .5 mL IM 00:00:00 [facility] Influenza Virus 2020-12-02 Completed [facility] y of Vaccine [facility] .5 mL IM 00:00:00 [facility] Influenza Virus 2020-12-02 Completed [facility] y of Vaccine Quad .5 mL IM 00:00:00 [facility] Influenza Virus 2019-12-18 Completed [facility] y of Vaccine [facility] .5 mL IM 00:00:00 [facility] Influenza Virus 2019-12-18 Completed [facility] y of Vaccine Quad .5 mL IM 00:00:00 [facility] Influenza Virus 2019-12-18 Completed [facility] y of Vaccine [facility] .5 mL IM 00:00:00 [facility] Influenza Virus 2019-12-18 Completed [facility] y of Vaccine [facility] .5 mL IM 00:00:00 [facility] Influenza Virus 2019-12-18 Completed [facility] y of Vaccine [facility] .5 mL IM 00:00:00 [facility] Influenza Virus 2019-12-18 Completed [facility] y of Vaccine [facility] .5 mL IM 00:00:00 [facility] Influenza Virus 2019-12-18 Completed [facility] y of Vaccine [facility] .5 mL IM 00:00:00 [facility] Influenza Virus 2019-12-18 Completed [facility] y of Vaccine [facility] .5 mL IM 00:00:00 [facility] Influenza Virus 2019-12-18 Completed [facility] y of Vaccine [facility] .5 mL IM 00:00:00 [facility] Influenza Virus 2019-12-18 Completed [facility] y of Vaccine [facility] .5 mL IM 00:00:00 [facility] Influenza Virus 2019-12-18 Completed [facility] y of Vaccine Quad .5 mL IM 00:00:00 [facility] Influenza Virus 2019-12-18 Completed [facility] y of Vaccine [facility] .5 mL IM 00:00:00 [facility] Influenza Virus 2019-12-18 [facility]pleted [facility] Influenza Virus 2019-12-18 Completed [facility] 00:00:[facility] Influenza Virus 2019-12-18 Completed [facility] 00:00:00 [facility] Influenza Virus 2019-12-18 Completed [facility] 00:00:00 [facility] Influenza Virus 2019-12-18 Completed [facility] 00:00:00 [facility] Influenza Virus 2019-12-18 Completed [facility] 00:00:00 [facility] Influenza Virus 2019-12-18 Completed [facility] 00:00:00 [facility] Influenza Virus 2019-12-18 Completed [facility] 00:00:00 [facility] Influenza Virus 2019-12-18 Completed [facility] 00:00:00 [facility] Influenza Virus 2019-12-18 Completed [facility] 00:00:00 [facility] Influenza Virus 2019-12-18 Completed [facility] 00:00:00 [facility] Influenza Virus 2019-12-18 Completed [facility] 00:00:00 [facility] Influenza Virus 2019-12-18 Completed [facility] 00:00:00 [facility] Influenza Virus 2019-12-18 Completed [facility] 00:00:00 [facility] Influenza Virus 2019-12-18 Completed [facility] 00:00:00 [facility] Influenza Virus 2019-12-18 Completed [facility] 00:00:00 [facility] Influenza Virus 2019-12-18 Completed [facility] 00:00:00 [facility] Influenza Virus 2019-12-18 Completed [facility] 00:00:00 [facility] Influenza Virus 2019-12-18 Completed [facility] 00:00:00 [facility] Influenza Virus 2019-12-18 Completed [facility] 00:00:00 [facility] Influenza Virus 2019-12-18 Completed [facility] 00:00:00 [facility] Influenza Virus 2019-12-18 Completed [facility] 00:00:00 [facility] Influenza Virus 2019-12-18 Completed [facility] 00:00:00 [facility] Influenza Virus 2019-12-18 Completed [facility] 00:00:00 [facility] Influenza Virus 2019-12-18 Completed [facility] 00:00:00 [facility] Influenza Virus 2019-12-18 Completed [facility] 00:00:00 [facility] Influenza Virus 2019-12-18 Completed [facility] 00:00:00 [facility] Influenza Virus 2019-12-18 Completed [facility] IM 00:00:00 [facility] Influenza Virus 2019-12-18 Completed [facility] IM 00:00:00 [facility] Influenza Virus 2019-12-18 Completed [facility] 00:00:00 [facility] Influenza Virus 2019-12-18 Completed [facility] .[facility] mL IM 00:00:00 [facility] Influenza Virus 2019-12-18 Completed [facility] .[facility] mL IM 00:00:00 [facility] Influenza Virus 2019-12-18 Completed [facility] mL IM 00:00:00 [facility] Influenza Virus 2019-12-18 Completed [facility] 00:00:00 [facility] Influenza Virus 2019-12-18 Completed [facility] 00:00:00 [facility] Influenza Virus 2019-12-18 Completed [facility] mL IM 00:00:00 [facility] Influenza Virus 2019-12-18 Completed [facility] mL IM 00:00:00 [facility] Influenza Virus 2019-12-18 Completed [facility] 00:00:00 [facility] Influenza Virus 2019-12-18 Completed [facility] 00:00:00 [facility] Influenza Virus 2019-12-18 Completed [facility] mL IM 00:00:00 [facility] Influenza Virus 2019-12-18 Completed [facility] mL IM 00:00:00 [facility] Influenza Virus 2019-12-18 Completed [facility] mL IM 00:00:00 [facility] Influenza Virus 2019-12-18 Completed [facility] mL IM 00:00:00 [facility] Influenza Virus 2019-12-18 Completed [facility] .[facility] mL IM 00:00:00 [facility] Influenza Virus 2019-12-18 Completed [facility] mL IM 00:00:00 [facility] Influenza Virus 2019-12-18 Completed [facility] mL IM 00:00:00 [facility] Influenza Virus 2019-12-18 Completed [facility] mL IM 00:00:00 [facility] Influenza Virus 2019-12-18 Completed [facility] .[facility] mL IM 00:00:00 [facility] Influenza Virus 2019-12-18 Completed [facility] .[facility] mL IM 00:00:00 [facility] Influenza Virus 2019-12-18 Completed [facility] mL IM 00:00:00 [facility] Influenza Virus 2019-12-18 Completed [facility] mL IM 00:00:00 [facility] Influenza Virus 2019-12-18 Completed [facility] mL IM 00:00:00 [facility] Influenza Virus 2019-12-18 Completed [facility] mL IM 00:00:00 [facility] Influenza Virus 2018-11-21 Completed [facility] 00:00:00 [facility] Pneumococcal 2018-11-21 Completed [facility] Polysaccharide, 00:00:00 [place] [facility] PPSV23 (PNEUMOVAX) [facility] TDAP 2018-11-21 Completed [facility] 00:00:00 [facility] Influenza Virus 2018-11-21 Completed [facility] IM 00:00:00 [facility] Pneumococcal 2018-11-21 Completed [facility] Polysaccharide, 00:00:00 [place] [facility] PPSV23 (PNEUMOVAX) [facility] TDAP 2018-11-21 Completed [facility] 00:00:00 [facility] Influenza Virus 2018-11-21 Completed [facility] mL IM 00:00:00 [facility] Pneumococcal 2018-11-21 Completed [facility] Polysaccharide, 00:00:00 [place] [facility] PPSV23 (PNEUMOVAX) [facility] TDAP 2018-11-21 Completed [facility] 00:00:00 [facility] Influenza Virus 2018-11-21 Completed [facility] .[facility] mL IM 00:00:00 [facility] Pneumococcal 2018-11-21 Completed [facility] Polysaccharide, 00:00:00 [place] [facility] PPSV23 (PNEUMOVAX) [facility] TDAP 2018-11-21 Completed [facility] 00:00:00 [facility] Influenza Virus 2018-11-21 Completed [facility] .[facility] mL IM 00:00:00 [facility] Pneumococcal 2018-11-21 Completed [facility] Polysaccharide, 00:00:00 [place] [facility] PPSV23 (PNEUMOVAX) [facility] TDAP 2018-11-21 Completed [facility] 00:00:00 [facility] Influenza Virus 2018-11-21 Completed [facility] .5 mL IM 00:00:00 [facility] Pneumococcal 2018-11-21 Completed [facility] Polysaccharide, 00:00:00 [place] [facility] PPSV23 (PNEUMOVAX) [facility] TDAP 2018-11-21 Completed [facility] 00:00:00 [facility] Influenza Virus 2018-11-21 Completed [facility] .5 mL IM 00:00:00 [facility] Pneumococcal 2018-11-21 Completed [facility] Polysaccharide, 00:00:00 [place] [facility] PPSV23 (PNEUMOVAX) [facility] TDAP 2018-11-21 Completed [facility] 00:00:00 [facility] Influenza Virus 2018-11-21 Completed [facility] .5 mL IM 00:00:00 [facility] Pneumococcal 2018-11-21 Completed [facility] Polysaccharide, 00:00:00 [place] [facility] PPSV23 (PNEUMOVAX) [facility] TDAP 2018-11-21 Completed [facility] 00:00:00 [facility] Influenza Virus 2018-11-21 Completed [facility] .5 mL IM 00:00:00 [facility] Pneumococcal 2018-11-21 Completed [facility] Polysaccharide, 00:00:00 [place] [facility] PPSV23 (PNEUMOVAX) [facility] TDAP 2018-11-21 Completed [facility] 00:00:00 [facility] Influenza Virus 2018-11-21 Completed [facility] .5 mL IM 00:00:00 [facility] Pneumococcal 2018-11-21 Completed [facility] Polysaccharide, 00:00:00 [place] [facility] PPSV23 (PNEUMOVAX) [facility] TDAP 2018-11-21 Completed [facility] 00:00:00 [facility] Influenza Virus 2018-11-21 Completed [facility] .5 mL IM 00:00:00 [facility] Pneumococcal 2018-11-21 Completed [facility] Polysaccharide, 00:00:00 [place] [facility] PPSV23 (PNEUMOVAX) [facility] TDAP 2018-11-21 Completed [facility] 00:00:00 [facility] Influenza Virus 2018-11-21 Completed [facility] .5 mL IM 00:00:00 [facility] Pneumococcal 2018-11-21 Completed [facility] Polysaccharide, 00:00:00 [place] [facility] PPSV23 (PNEUMOVAX) [facility] TDAP 2018-11-21 Completed [facility] 00:00:00 [facility] Influenza Virus 2018-11-21 Completed [facility] .5 mL IM 00:00:00 [facility] Pneumococcal 2018-11-21 Completed [facility] Polysaccharide, 00:00:00 [place] [facility] PPSV23 (PNEUMOVAX) [facility] 2018-11-21 Completed [facility] 00[facility]00:00 [facility] Influenza Virus 2018-11-21 Completed [facility] .5 mL IM 00:00:00 [facility] Pneumococcal 2018-11-21 Completed [facility] Polysaccharide, 00:00:00 [place] [facility] PPSV23 (PNEUMOVAX) [facility] TDAP 2018-11-21 Completed [facility] 00:00:00 [facility] Influenza Virus 2018-11-21 Completed [facility] .5 mL IM 00:00:00 [facility] Pneumococcal 2018-11-21 Completed [facility] Polysaccharide, 00:00:00 [place] [facility] PPSV23 (PNEUMOVAX) [facility] TDAP 2018-11-21 Completed [facility] 00:00:00 [facility] Influenza Virus 2018-11-21 Completed [facility] .5 mL IM 00:00:00 [facility] Pneumococcal 2018-11-21 Completed [facility] Polysaccharide, 00:00:00 [place] [facility] PPSV23 (PNEUMOVAX) [facility] TDAP 2018-11-21 Completed [facility] 00:00:00 [facility] Influenza Virus 2018-11-21 Completed [facility] .5 mL IM 00:00:00 [facility] Pneumococcal 2018-11-21 Completed [facility] Polysaccharide, 00:00:00 [place] [facility] PPSV23 (PNEUMOVAX) [facility] AP 2018-11-21 Completed [facility] 00:00:00 [facility] Influenza Virus 2018-11-21 Completed [facility] .5 mL IM 00:00:00 [facility] Pneumococcal 2018-11-21 Completed [facility] Polysaccharide, 00:00:00 [place] [facility] PPSV23 (PNEUMOVAX) [facility] TDAP 2018-11-21 Completed [facility] 00:00:00 [facility] Influenza Virus 2018-11-21 Completed [facility] .5 mL IM 00:00:00 [facility] Pneumococcal 2018-11-21 Completed [facility] Polysaccharide, 00:00:00 [place] [facility] PPSV23 (PNEUMOVAX) [facility] TDAP 2018-11-21 Completed [facility] 00:00:00 [facility] Influenza Virus 2018-11-21 Completed [facility] .5 mL IM 00:00:00 [facility] Pneumococcal 2018-11-21 Completed [facility] Polysaccharide, 00:00:00 [place] [facility] PPSV23 (PNEUMOVAX) [facility] TDAP 2018-11-21 Completed [facility] 00[facility]00:00 [facility] Influenza Virus 2018-11-21 Completed [facility] .5 mL IM 00:00:00 [facility] Pneumococcal 2018-11-21 Completed [facility] Polysaccharide, 00:00:00 [place] [facility] PPSV23 (PNEUMOVAX) [facility] TDAP 2018-11-21 Completed [facility] 00[facility]00:00 [facility] Influenza Virus 2018-11-21 Completed [facility] .5 mL IM 00:00:00 [facility] Pneumococcal 2018-11-21 Completed [facility] Polysaccharide, 00:00:00 [place] [facility] PPSV23 (PNEUMOVAX) [facility] TDAP 2018-11-21 Completed [facility] 00:00:00 [facility] Influenza Virus 2018-11-21 Completed [facility] .5 mL IM 00:00:00 [facility] Pneumococcal 2018-11-21 Completed [facility] Polysaccharide, 00:00:00 [place] [facility] PPSV23 (PNEUMOVAX) [facility] TDAP 2018-11-21 Completed [facility] 00[facility]00:00 [facility] Influenza Virus 2018-11-21 Completed [facility] .5 mL IM 00:00:00 [facility] Pneumococcal 2018-11-21 Completed [facility] Polysaccharide, 00:00:00 [place] [facility] PPSV23 (PNEUMOVAX) [facility] TDAP 2018-11-21 Completed [facility] 00[facility]00:00 [facility] Influenza Virus 2018-11-21 Completed [facility] .5 mL IM 00:00:00 [facility] Pneumococcal 2018-11-21 Completed [facility] Polysaccharide, 00:00:00 [place] [facility] PPSV23 (PNEUMOVAX) [facility] TDAP 2018-11-21 Completed [facility] 00[facility]00:00 [facility] Influenza Virus 2018-11-21 Completed [facility] .5 mL IM 00:00:00 [facility] Pneumococcal 2018-11-21 Completed [facility] Polysaccharide, 00:00:00 [place] [facility] PPSV23 (PNEUMOVAX) Branch TDAP 2018-11-21 Completed [facility] 00:00:00 [facility] Influenza Virus 2018-11-21 Completed [facility] .5 mL IM 00:00:00 [facility] Pneumococcal 2018-11-21 Completed [facility] Polysaccharide, 00:00:00 [place] [facility] PPSV23 (PNEUMOVAX) [facility] TDAP 2018-11-21 Completed [facility] 00[facility]00:00 [facility] Influenza Virus 2018-11-21 Completed [facility] .5 mL IM 00:00:00 [facility] Pneumococcal 2018-11-21 Completed [facility] Polysaccharide, 00:00:00 [place] [facility] PPSV23 (PNEUMOVAX) Branch TDAP 2018-11-21 Completed [facility] 00:00:00 [facility] Influenza Virus 2018-11-21 Completed [facility] .5 mL IM 00:00:00 [facility] Pneumococcal 2018-11-21 Completed [facility] Polysaccharide, 00:00:00 [place] [facility] PPSV23 (PNEUMOVAX) Branch TDAP 2018-11-21 Completed [facility] 00:00:00 [facility] Influenza Virus 2018-11-21 Completed [facility] .5 mL IM 00:00:00 [facility] Pneumococcal 2018-11-21 Completed [facility] Polysaccharide, 00:00:00 [place] [facility] PPSV23 (PNEUMOVAX) Branch TDAP 2018-11-21 Completed [facility] 00:00:00 [facility] Influenza Virus 2018-11-21 Completed [facility] .5 mL IM 00:00:00 [facility] Pneumococcal 2018-11-21 Completed [facility] Polysaccharide, 00:00:00 [place] [facility] PPSV23 (PNEUMOVAX) Branch TDAP 2018-11-21 Completed [facility] 00:00:00 [facility] Influenza Virus 2018-11-21 Completed [facility] .5 mL IM 00:00:00 [facility] Pneumococcal 2018-11-21 Completed [facility] Polysaccharide, 00:00:00 [place] [facility] PPSV23 (PNEUMOVAX) Branch TDAP 2018-11-21 Completed [facility] 00:00:00 [facility] Influenza Virus 2018-11-21 Completed [facility] .5 mL IM 00:00:00 [facility] Pneumococcal 2018-11-21 Completed [facility] f Polysaccharide, 00:00:00 [place] [facility] PPSV23 (PNEUMOVAX) Branch TDAP 2018-11-21 Completed [facility] 00:00:00 [facility] Influenza Virus 2018-11-21 Completed [facility] .5 mL IM 00:00:00 [facility] Pneumococcal 2018-11-21 Completed [facility] Polysaccharide, 00:00:00 [place] [facility] PPSV23 (PNEUMOVAX) Branch TDAP 2018-11-21 Completed [facility] 00:00:00 [facility] Influenza Virus 2018-11-21 Completed [facility] .5 mL IM 00:00:00 [facility] Pneumococcal 2018-11-21 Completed [facility] Polysaccharide, 00:00:00 [place] [facility] PPSV23 (PNEUMOVAX) Branch TDAP 2018-11-21 Completed [facility] 00:00:00 [facility] Influenza Virus 2018-11-21 Completed [facility] .5 mL IM 00:00:00 [facility] Pneumococcal 2018-11-21 Completed [facility] Polysaccharide, 00:00:00 [place] [facility] PPSV23 (PNEUMOVAX) Branch TDAP 2018-11-21 Completed [facility] 00:00:00 [facility] Influenza Virus 2018-11-21 Completed [facility] .5 mL IM 00:00:00 [facility] Pneumococcal 2018-11-21 Completed [facility] Polysaccharide, 00:00:00 [place] [facility] PPSV23 (PNEUMOVAX) Branch TDAP 2018-11-21 Completed [facility] 00:00:00 [facility] Influenza Virus 2018-11-21 Completed [facility] .5 mL IM 00:00:00 [facility] Pneumococcal 2018-11-21 Completed [facility] Polysaccharide, 00:00:00 [place] [facility] PPSV23 (PNEUMOVAX) Branch TDAP 2018-11-21 Completed [facility] 00:00:00 [facility] Influenza Virus 2018-11-21 Completed [facility] .5 mL IM 00:00:00 [facility] Pneumococcal 2018-11-21 Completed [facility] Polysaccharide, 00:00:00 [place] [facility] PPSV23 (PNEUMOVAX) Branch TDAP 2018-11-21 Completed [facility] 00:00:00 [facility] Influenza Virus 2018-11-21 Completed [facility] .5 mL IM 00:00:00 [facility] Pneumococcal 2018-11-21 Completed [facility] Polysaccharide, 00:00:00 [place] [facility] PPSV23 (PNEUMOVAX) Branch TDAP 2018-11-21 Completed [facility] 00:00:00 [facility] Influenza Virus 2018-11-21 Completed [facility] .5 mL IM 00:00:00 [facility] Pneumococcal 2018-11-21 Completed [facility] f Polysaccharide, 00:00:00 [place] [facility] PPSV23 (PNEUMOVAX) Branch TDAP 2018-11-21 Completed [facility] 00:00:00 [facility] Influenza Virus 2018-11-21 Completed [facility] .5 mL IM 00:00:00 [facility] Pneumococcal 2018-11-21 Completed [facility] f Polysaccharide, 00:00:00 [place] [facility] PPSV23 (PNEUMOVAX) Branch TDAP 2018-11-21 Completed [facility] 00:00:00 [facility] Influenza Virus 2018-11-21 Completed [facility] .5 mL IM 00:00:00 [facility] Pneumococcal 2018-11-21 Completed [facility] f Polysaccharide, 00:00:00 [place] [facility] PPSV23 (PNEUMOVAX) Branch TDAP 2018-11-21 Completed [facility] 00:00:00 [facility] Influenza Virus 2018-11-21 Completed [facility] .5 mL IM 00:00:00 [facility] Pneumococcal 2018-11-21 Completed [facility] f Polysaccharide, 00:00:00 [place] [facility] PPSV23 (PNEUMOVAX) Branch TDAP 2018-11-21 Completed [facility] 00:00:00 [facility] Influenza Virus 2018-11-21 Completed [facility] .5 mL IM 00:00:00 [facility] Pneumococcal 2018-11-21 Completed [facility] f Polysaccharide, 00:00:00 [place] [facility] PPSV23 (PNEUMOVAX) Branch TDAP 2018-11-21 Completed [facility] 00:00:00 [facility] Influenza Virus 2018-11-21 Completed [facility] .5 mL IM 00:00:00 [facility] Pneumococcal 2018-11-21 Completed [facility] f Polysaccharide, 00:00:00 [place] [facility] PPSV23 (PNEUMOVAX) Branch TDAP 2018-11-21 Completed [facility] 00:00:00 [facility] Influenza Virus 2018-11-21 Completed [facility] .5 mL IM 00:00:00 [facility] Pneumococcal 2018-11-21 Completed [facility] f Polysaccharide, 00:00:00 [place] [facility] PPSV23 (PNEUMOVAX) Branch AP 2018-11-21 Completed [facility] 00:00:00 [facility] Influenza Virus 2018-11-21 Completed [facility] .5 mL IM 00:00:00 [facility] Pneumococcal 2018-11-21 Completed [facility] f Polysaccharide, 00:00:00 [place] [facility] PPSV23 (PNEUMOVAX) Branch TDAP 2018-11-21 Completed [facility] 00:00:00 [facility] Influenza Virus 2018-11-21 Completed [facility] .5 mL IM 00:00:00 [facility] Pneumococcal 2018-11-21 Completed [facility] f Polysaccharide, 00:00:00 [place] [facility] PPSV23 (PNEUMOVAX) Branch AP 2018-11-21 Completed [facility] 00:00:00 [facility] Influenza Virus 2018-11-21 Completed [facility] .5 mL IM 00:00:00 [facility] Pneumococcal 2018-11-21 Completed [facility] f Polysaccharide, 00:00:00 [place] [facility] PPSV23 (PNEUMOVAX) Branch AP 2018-11-21 Completed [facility] 00:00:00 [facility] Influenza Virus 2018-11-21 Completed [facility] .5 mL IM 00:00:00 [facility] Pneumococcal 2018-11-21 Completed [facility] f Polysaccharide, 00:00:00 [place] [facility] PPSV23 (PNEUMOVAX) Branch AP 2018-11-21 Completed [facility] 00:00:00 [facility] Influenza Virus 2018-11-21 Completed [facility] .5 mL IM 00:00:00 [facility] Pneumococcal 2018-11-21 Completed [facility] f Polysaccharide, 00:00:00 [place] [facility] PPSV23 (PNEUMOVAX) Branch TDAP 2018-11-21 Completed [facility] 00:00:00 [facility] Influenza Virus 2018-11-21 Completed [facility] .5 mL IM 00:00:00 [facility] Pneumococcal 2018-11-21 Completed [facility] f Polysaccharide, 00:00:00 [place] [facility] PPSV23 (PNEUMOVAX) Branch TDAP 2018-11-21 Completed [facility] 00:00:00 [facility] Influenza Virus 2018-11-21 Completed [facility] .5 mL IM 00:00:00 [facility] Pneumococcal 2018-11-21 Completed [facility] f Polysaccharide, 00:00:00 [place] [facility] PPSV23 (PNEUMOVAX) Branch TDAP 2018-11-21 Completed [facility] 00:00:00 [facility] Influenza Virus 2018-11-21 Completed [facility] .5 mL IM 00:00:00 [facility] Pneumococcal 2018-11-21 Completed [facility] f Polysaccharide, 00:00:00 [place] [facility] PPSV23 (PNEUMOVAX) Branch TDAP 2018-11-21 Completed [facility] 00:00:00 [facility] Influenza Virus 2018-11-21 Completed [facility] .5 mL IM 00:00:00 [facility] Pneumococcal 2018-11-21 Completed [facility] f Polysaccharide, 00:00:00 [place] [facility] PPSV23 (PNEUMOVAX) Branch TDAP 2018-11-21 Completed [facility] 00:00:00 [facility] Influenza Virus 2018-11-21 Completed Universit y of Vaccine Quad .5 mL IM 00:00:00 [facility] Pneumococcal 2018-11-21 Completed University o f Polysaccharide, 00:00:00 [place] [facility] PPSV23 (PNEUMOVAX) Branch TDAP 2018-11-21 Completed [facility] 00:00:00 [facility] Influenza Virus 2018-11-21 Completed [facility]it [facility] of Vaccine Quad .5 mL IM 00:00:00 [facility] Pneumococcal 2018-11-21 Completed University o f Polysaccharide, 00:00:00 [place] [facility] PPSV23 (PNEUMOVAX) Branch TDAP 2018-11-21 Completed [facility] 00:00:00 [facility] Influenza Virus 2018-11-21 Completed [facility]it [facility] of Vaccine Quad .5 mL IM 00:00:00 [facility] Pneumococcal 2018-11-21 Completed University o f Polysaccharide, 00:00:00 [place] [facility] PPSV23 (PNEUMOVAX) Branch TDAP 2018-11-21 Completed [facility] 00:00:00 [facility] Influenza Virus 2018-11-21 Completed [facility]it [facility] of Vaccine Quad .5 mL IM 00:00:00 [facility] Pneumococcal 2018-11-21 Completed University o f Polysaccharide, 00:00:00 [place] [facility] PPSV23 (PNEUMOVAX) Branch TDAP 2018-11-21 Completed [facility] 00:00:00 [facility] Influenza Virus 2018-11-21 Completed [facility]it [facility] of Vaccine Quad .5 mL IM 00:00:00 [facility] Pneumococcal 2018-11-21 Completed University o f Polysaccharide, 00:00:00 [place] [facility] PPSV23 (PNEUMOVAX) Branch TDAP 2018-11-21 Completed [facility] 00:00:00 [facility] Influenza Virus 2018-11-21 Completed [facility]it [facility] of Vaccine Quad .5 mL IM 00:00:00 [facility] Pneumococcal 2018-11-21 Completed University o f Polysaccharide, 00:00:00 [place] [facility] PPSV23 (PNEUMOVAX) Branch TDAP 2018-11-21 Completed [facility] 00:00:00 [facility] Influenza Virus 2018-11-21 Completed [facility]it [facility] of Vaccine Quad .5 mL IM 00:00:00 [facility] Pneumococcal 2018-11-21 Completed University o f Polysaccharide, 00:00:00 [place] [facility] PPSV23 (PNEUMOVAX) Branch TDAP 2018-11-21 Completed [facility] 00:00:00 [facility] Influenza Virus 2018-11-21 Completed [facility]it [facility] of Vaccine Quad .5 mL IM 00:00:00 [facility] Pneumococcal 2018-11-21 Completed University o f Polysaccharide, 00:00:00 [place] [facility] PPSV23 (PNEUMOVAX) Branch TDAP 2018-11-21 Completed [facility] 00:00:00 [place] [facility] Influenza Virus 2018-11-21 Completed [facility]it [facility] of Vaccine Quad .5 mL IM 00:00:00 [facility] Pneumococcal 2018-11-21 Completed University o f Polysaccharide, 00:00:00 [facility] ical PPSV23 (PNEUMOVAX) Branch TDAP 2018-11-21 Completed [facility] of 00:00:00 [facility] Influenza Virus 2017-12-27 Completed [facility]it [facility] of Vaccine Quad .5 mL IM 00:00:00 [facility] Influenza Virus 2017-12-27 Completed [facility] of Vaccine Quad .5 mL IM 00:00:00 [facility] Influenza Virus 2017-12-27 Completed [facility] of Vaccine Quad .5 mL IM 00:00:00 [facility] Influenza Virus 2017-12-27 Completed [facility] of Vaccine Quad .5 mL IM 00:00:00 [facility] Influenza Virus 2017-12-27 Completed [facility] of Vaccine Quad .5 mL IM 00:00:00 [facility] Influenza Virus 2017-12-27 Completed [facility] of Vaccine Quad .5 mL IM 00:00:00 [facility] Influenza Virus 2017-12-27 Completed [facility] of Vaccine Quad .5 mL IM 00:00:00 [facility] Influenza Virus 2017-12-27 Completed [facility] of Vaccine Quad .5 mL IM 00:00:00 [facility] Influenza Virus 2017-12-27 Completed [facility] of Vaccine Quad .5 mL IM 00:00:00 [facility] Influenza Virus 2017-12-27 Completed [facility] of Vaccine Quad .5 mL IM 00:00:00 [facility] Influenza Virus 2017-12-27 Completed [facility] of Vaccine Quad .5 mL IM 00:00:00 [facility] Influenza Virus 2017-12-27 Completed [facility] of Vaccine Quad .5 mL IM 00:00:00 [facility] Influenza Virus 2017-12-27 Completed [facility] of Vaccine Quad .5 mL IM 00:00:00 [facility] Influenza Virus 2017-12-27 Completed [facility] of Vaccine Quad .5 mL IM 00:00:00 [facility] Influenza Virus 2017-12-27 Completed [facility] of Vaccine Quad .5 mL IM 00:00:00 [facility] Influenza Virus 2017-12-27 Completed [facility] of Vaccine Quad .5 mL IM 00:00:00 [facility] Influenza Virus 2017-12-27 Completed [facility] of Vaccine Quad .5 mL IM 00:00:00 [facility] Influenza Virus 2017-12-27 Completed [facility] of Vaccine Quad .5 mL IM 00:00:00 [facility] Influenza Virus 2017-12-27 Completed [facility] of Vaccine Quad .5 mL IM 00:00:00 [facility] Influenza Virus 2017-12-27 Completed [facility] of Vaccine Quad .5 mL IM 00:00:00 [facility] Influenza Virus 2017-12-27 Completed [facility] of Vaccine Quad .5 mL IM 00:00:00 [facility] Influenza Virus 2017-12-27 Completed [facility] of Vaccine Quad .5 mL IM 00:00:00 [facility] Influenza Virus 2017-12-27 Completed [facility] of Vaccine Quad .5 mL IM 00:00:00 [facility] Influenza Virus 2017-12-27 Completed [facility] of Vaccine Quad .5 mL IM 00:00:00 [facility] Influenza Virus 2017-12-27 Completed [facility] of Vaccine Quad .5 mL IM 00:00:00 [facility] Influenza Virus 2017-12-27 Completed [facility] of Vaccine Quad .5 mL IM 00:00:00 [facility] Influenza Virus 2017-12-27 Completed [facility] of Vaccine Quad .5 mL IM 00:00:00 [facility] Influenza Virus 2017-12-27 Completed [facility] of Vaccine Quad .5 mL IM 00:00:00 [facility] Influenza Virus 2017-12-27 Completed [facility] of Vaccine Quad .5 mL IM 00:00:00 [facility] Influenza Virus 2017-12-27 Completed [facility] of Vaccine Quad .5 mL IM 00:00:00 [facility] Influenza Virus 2017-12-27 Completed [facility] of Vaccine Quad .5 mL IM 00:00:00 [facility] Influenza Virus 2017-12-27 Completed [facility] of Vaccine Quad .5 mL IM 00:00:00 [facility] Influenza Virus 2017-12-27 Completed [facility] of Vaccine Quad .5 mL IM 00:00:00 [facility] Influenza Virus 2017-12-27 Completed [facility] of Vaccine Quad .5 mL IM 00:00:00 [facility] Influenza Virus 2017-12-27 Completed [facility] of Vaccine Quad .5 mL IM 00:00:00 [facility] Influenza Virus 2017-12-27 Completed [facility] of Vaccine Quad .5 mL IM 00:00:00 [facility] Influenza Virus 2017-12-27 Completed [facility] of Vaccine Quad .5 mL IM 00:00:00 [facility] Influenza Virus 2017-12-27 Completed [facility] of Vaccine Quad .5 mL IM 00:00:00 [facility] Influenza Virus 2017-12-27 Completed [facility] of Vaccine Quad .5 mL IM 00:00:00 [facility] Influenza Virus 2017-12-27 Completed [facility] of Vaccine Quad .5 mL IM 00:00:00 [facility] Influenza Virus 2017-12-27 Completed [facility] of Vaccine Quad .5 mL IM 00:00:00 [facility] Influenza Virus 2017-12-27 Completed [facility] of Vaccine Quad .5 mL IM 00:00:00 [facility] Influenza Virus 2017-12-27 Completed [facility] of Vaccine Quad .5 mL IM 00:00:00 [facility] Influenza Virus 2017-12-27 Completed [facility] of Vaccine Quad .5 mL IM 00:00:00 [facility] Influenza Virus 2017-12-27 Completed [facility] of Vaccine Quad .5 mL IM 00:00:00 [facility] Influenza Virus 2017-12-27 Completed [facility] of Vaccine Quad .5 mL IM 00:00:00 [facility] Influenza Virus 2017-12-27 Completed [facility] of Vaccine Quad .5 mL IM 00:00:00 [facility] Influenza Virus 2017-12-27 Completed [facility] of Vaccine Quad .5 mL IM 00:00:00 [facility] Influenza Virus 2017-12-27 Completed [facility] of Vaccine Quad .5 mL IM 00:00:00 [facility] Influenza Virus 2017-12-27 Completed [facility] of Vaccine Quad .5 mL IM 00:00:00 [facility] Influenza Virus 2017-12-27 Completed [facility] of Vaccine Quad .5 mL IM 00:00:00 [facility] Influenza Virus 2017-12-27 Completed [facility] of Vaccine Quad .5 mL IM 00:00:00 [facility] Influenza Virus 2017-12-27 Completed [facility] of Vaccine Quad .5 mL IM 00:00:00 [facility] Influenza Virus 2017-12-27 Completed [facility] of Vaccine Quad .5 mL IM 00:00:00 [facility] Influenza Virus 2017-12-27 Completed [facility] of Vaccine Quad .5 mL IM 00:00:00 [facility] Influenza Virus 2017-12-27 Completed [facility] of Vaccine Quad .5 mL IM 00:00:00 [facility] Influenza Virus 2017-12-27 Completed [facility] of Vaccine Quad .5 mL IM 00:00:00 [facility] Influenza Virus 2017-12-27 Completed [facility] of Vaccine Quad .5 mL IM 00:00:00 [facility] Influenza Virus 2017-12-27 Completed [facility] of Vaccine Quad .5 mL IM 00:00:00 [facility] Influenza Virus 2017-12-27 Completed [facility] of Vaccine Quad .5 mL IM 00:00:00 [facility] Influenza Virus 2017-12-27 Completed [facility] of Vaccine Quad .5 mL IM 00:00:00 [facility] Influenza Virus 2017-12-27 Completed [facility] of Vaccine Quad .5 mL IM 00:00:00 [facility] Influenza Virus 2017-12-27 Completed [facility] of Vaccine Quad .5 mL IM 00:00:00 [facility] Influenza Virus 2017-12-27 Completed [facility] of Vaccine Quad .5 mL IM 00:00:00 [facility] Influenza Virus 2017-12-27 Completed [facility] of Vaccine Quad .5 mL IM 00:00:00 [facility] Td 2017-08-03 Completed [facility] 00:00:00 [place] [facility] Td 2017-08-03 Completed [facility] 00:00:00 [facility] Td 2017-08-03 Completed [facility] 00:00:00 [facility] Td 2017-08-03 Completed [facility] 00:00:00 [facility] Td 2017-08-03 Completed [facility] 00:00:00 [facility] Td 2017-08-03 Completed [facility] 00:00:00 [facility] Td 2017-08-03 Completed [facility] 00:00:00 [facility] Td 2017-08-03 Completed [facility] 00:00:00 [facility] Td 2017-08-03 Completed [facility] 00:00:00 [facility] Td 2017-08-03 Completed [facility] 00:00:00 [facility] Td 2017-08-03 Completed [facility] 00:00:00 [facility] Td 2017-08-03 Completed [facility] 00:00:00 [facility] Td 2017-08-03 Completed [facility] 00:00:00 [facility] Td 2017-08-03 Completed [facility] 00:00:00 [facility] Td 2017-08-03 Completed [facility] 00:00:00 [facility] Td 2017-08-03 Completed [facility] 00:00:00 [facility] Td 2017-08-03 Completed [facility] 00:00:00 [facility] Td 2017-08-03 Completed [facility] 00:00:00 [facility] Td 2017-08-03 Completed [facility] 00:00:00 [facility] Td 2017-08-03 Completed [facility] 00:00:00 [facility] Td 2017-08-03 Completed [facility] 00:00:00 [facility] Branch TD, NOS 2017-08-03 Completed [facility] of 00:00:00 [facility] Branch TD, NOS 2017-08-03 Completed [facility] 00:00:00 [facility] Branch TD, NOS 2017-08-03 Completed [facility] of 00:00:00 [facility] Branch TD, NOS 2017-08-03 Completed [facility] 00:00:00 [facility] Branch TD, NOS 2017-08-03 Completed [facility] 00:00:00 [facility] Branch TD, NOS 2017-08-03 Completed [facility] 00:00:00 [place] [facility] TD, NOS 2017-08-03 Completed [facility] 00:00:00 [place] [facility] TD, NOS 2017-08-03 Completed [facility] 00:00:00 [place] [facility] TD, NOS 2017-08-03 Completed [facility] 00:00:00 [place] [facility] TD, NOS 2017-08-03 Completed [facility] 00:00:00 [place] [facility] TD, NOS 2017-08-03 Completed [facility] 00:00:00 [place] [facility] TD, NOS 2017-08-03 Completed [facility] 00:00:00 [place] [facility] TD, NOS 2017-08-03 Completed [facility] 00:00:00 [place] [facility] TD, NOS 2017-08-03 Completed [facility] 00:00:00 [place] [facility] TD, NOS 2017-08-03 Completed [facility] 00:00:00 [place] [facility] TD, NOS 2017-08-03 Completed [facility] 00:00:00 [place] [facility] TD, NOS 2017-08-03 Completed [facility] 00:00:00 [facility] Td 2017-08-03 Completed [facility] 00:00:00 [facility] Td 2017-08-03 Completed [facility] 00:00:00 [facility] Td 2017-08-03 Completed [facility] 00:00:00 [facility] Td 2017-08-03 Completed [facility] 00:00:00 [facility] Td 2017-08-03 Completed [facility] 00:00:00 [facility] Td 2017-08-03 Completed [facility] 00:00:00 [facility] Td 2017-08-03 Completed [facility] 00:00:00 [facility] Td 2017-08-03 Completed [facility] 00:00:00 [facility] Td 2017-08-03 Completed [facility] 00:00:00 [facility] Td 2017-08-03 Completed [facility] 00:00:00 [place] [facility] Td 2017-08-03 Completed [facility] 00:00:00 [facility] Td 2017-08-03 Completed [facility] 00:00:00 [place] [facility] Td 2017-08-03 Completed [facility] 00:00:00 [place] [facility] Td 2017-08-03 Completed [facility] 00:00:00 [place] [facility] Td 2017-08-03 Completed [facility] 00:00:00 [facility] Td 2017-08-03 Completed [facility] 00:00:00 [place] [facility] Td 2017-08-03 Completed [facility] 00:00:00 [place] [facility] Td 2017-08-03 Completed [facility] 00:00:00 [facility] Branch Td 2017-08-03 Completed [facility] 00:00:00 [facility] Branch Td 2017-08-03 Completed [facility] of 00:00:00 [facility] Branch Td 2017-08-03 Completed [facility] 00:00:00 [facility] Branch Td 2017-08-03 Completed [facility] 00:00:00 [facility] Branch Td 2017-08-03 Completed [facility] of 00:00:00 [facility] Branch Td 2017-08-03 Completed [facility] 00:00:00 [facility] Branch Td 2017-08-03 Completed [facility] 00:00:00 [facility] Branch Td 2017-08-03 Completed [facility] of 00:00:00 [facility] Branch Td 2017-08-03 Completed [facility] of 00:00:00 [facility] Branch Pneumococcal 2017-03-[address] [facility] Polysaccharide 00:00:00 [facility] (Pneumovax) Pneumococcal 2017-03-[address] [facility] Polysaccharide 00:00:00 [facility] (Pneumovax) Vital Signs Vital Name Observation Time Observation Value Comments Source Systolic blood 2022-03-14 101 mm[Hg] University of pressure 17:46:00 [facility] Diastolic blood 2022-03-14 58 mm[Hg] University o f pressure 17:46:00 [facility] Heart rate 2022-03-14 96 /min University of 17:43:00 [facility] Body temperature 2022-03-14 36.06 [place] University of 17:43:00 [facility] Respiratory rate 2022-03-14 20 /min [facility] of 17:43:00 [facility] Body weight 2022-03-14 72.9 kg University of 17:43:00 [facility] BMI 2022-03-14 25.62 kg/m2 University of 17:43:00 [facility] Oxygen saturation 2022-03-14 99 /min [facility] in Arterial blood 17:43:00 [facility] Pulse oximetry [place] Systolic blood 2022-03-13 103 mm[Hg] University of pressure 21:42:00 [facility] Diastolic blood 2022-03-13 65 mm[Hg] University o f pressure 21:42:00 [facility] Heart rate 2022-03-13 71 /min University of 21:42:00 [facility] Body temperature 2022-03-13 35.61 [place] University of 21:42:00 [facility] Respiratory rate 2022-03-13 18 /min University of 21:42:00 [facility] Body weight 2022-03-13 74.662 kg University of 21:42:00 [facility] BMI 2022-03-13 26.23 kg/m2 University of 21:42:00 [facility] Oxygen saturation 2022-03-13 97 /min University of in Arterial blood 21:42:00 [facility] nani by Pulse oximetry Branch Systolic blood 2022-02-06 104 mm[Hg] University of pressure 20:34:00 [facility] Diastolic blood 2022-02-06 63 mm[Hg] University o f pressure 20:34:00 [facility] Heart rate 2022-02-06 97 /min University of 20:34:00 [facility] Body temperature 2022-02-06 36.17 [place] University of 20:34:00 [facility] Respiratory rate 2022-02-06 19 /min University of 20:34:00 [facility] Body height 2022-02-06 168.7 cm University of 20:34:00 [facility] Body weight 2022-02-06 72.938 kg Verified ht and University o f 20:34:00 wt with Rhina [facility] MA and [place] Branch RN BMI 2022-02-06 25.63 kg/m2 University of 20:34:00 [facility] Oxygen saturation 2022-02-06 96 /min University of in Arterial blood 20:34:00 [facility] by Pulse oximetry Branch Systolic blood 2022-01-12 126 mm[Hg] University of pressure 20:25:00 [facility] Diastolic blood 2022-01-12 75 mm[Hg] University o f pressure 20:25:00 [facility] Heart rate 2022-01-12 88 /min University of 20:25:00 [facility] Body temperature 2022-01-12 36.72 [place] University of 20:25:00 [facility] Respiratory rate 2022-01-12 18 /min University of 20:25:00 [facility] Body height 2022-01-12 175.3 cm University of 20:25:00 [facility] Body weight 2022-01-12 72.077 kg University of 20:25:00 [facility] BMI 2022-01-12 23.47 kg/m2 University of 20:25:00 [facility] Oxygen saturation 2022-01-12 98 /min University of in Arterial blood 20:25:00 [facility] nani by Pulse oximetry Branch Systolic blood 2022-01-04 147 mm[Hg] University of pressure 20:35:00 [facility] Diastolic blood 2022-01-04 75 mm[Hg] University o f pressure 20:35:00 [facility] Heart rate 2022-01-04 64 /min University of 20:35:00 [facility] Body temperature 2022-01-04 36.67 [place] University of 20:35:00 [facility] Respiratory rate 2022-01-04 12 /min University of 20:35:00 [facility] Oxygen saturation 2022-01-04 96 /min University of in Arterial blood 20:35:00 [facility] by Pulse oximetry Branch Body height 2021-12-29 175.3 cm University of 21:55:00 [facility] Body weight 2021-12-29 70.5 kg University of 21:55:00 [facility] BMI 2021-12-29 22.95 kg/m2 University of 21:55:00 [facility] Systolic blood 2021-12-22 149 mm[Hg] University of pressure 17:07:00 [facility] Diastolic blood 2021-12-22 73 mm[Hg] University o f pressure 17:07:00 [facility] Heart rate 2021-12-22 75 /min University of 17:07:00 [facility] Body temperature 2021-12-22 35.89 [place] University of 17:07:00 [facility] Respiratory rate 2021-12-22 16 /min University of 17:07:00 [facility] Oxygen saturation 2021-12-22 96 /min University of in Arterial blood 17:07:00 [facility] by Pulse oximetry Branch Body weight 2021-12-08 85.5 kg per bed University of 01:44:00 [facility] BMI 2021-12-08 27.84 kg/m2 University of 01:44:00 [facility] Body height 2021-12-05 175.3 cm University of 20:18:00 [facility] Systolic blood 2021-12-12 146 mm[Hg] University of pressure 08:20:00 [facility] Diastolic blood 2021-12-12 71 mm[Hg] University o f pressure 08:20:00 [facility] Heart rate 2021-12-12 59 /min University of 08:20:00 [facility] Body temperature 2021-12-12 36.39 [place] University of 08:20:00 [facility] Respiratory rate 2021-12-12 16 /min University of 08:20:00 [facility] Oxygen saturation 2021-12-12 98 /min University of in Arterial blood 08:20:00 [facility] nani by Pulse oximetry Branch Body weight 2021-12-08 85.5 kg per bed University of 01:44:00 [facility] BMI 2021-12-08 27.84 kg/m2 University of 01:44:00 [facility] Body height 2021-12-05 175.3 cm University of 20:18:00 [facility] Systolic blood 2021-12-05 150 mm[Hg] University of pressure 16:30:00 [facility] Diastolic blood 2021-12-05 79 mm[Hg] University o f pressure 16:30:00 [facility] Heart rate 2021-12-05 60 /min University of 16:30:00 [facility] Body temperature 2021-12-05 36.78 [place] University of 16:29:00 [facility] Respiratory rate 2021-12-05 18 /min University of 16:29:00 [facility] Oxygen saturation 2021-12-05 97 /min University of in Arterial blood 16:29:00 [facility] by Pulse oximetry Branch Body height 2021-12-02 175.3 cm University of 06:29:00 [facility] Body weight 2021-12-02 82.464 kg University of 06:29:00 [facility] BMI 2021-12-02 26.73 kg/m2 University of 06:29:00 [facility] Systolic blood 2021-12-02 174 mm[Hg] University of pressure 21:00:00 [facility] Branch Diastolic blood 2021-12-02 80 mm[Hg] University o f pressure 21:00:00 [facility] Heart rate 2021-12-02 79 /min University of 21:00:00 [facility] Oxygen saturation 2021-12-02 98 /min University of in Arterial blood 21:00:00 [facility] nani by Pulse oximetry Branch Body temperature 2021-12-02 35.94 [place] University of 20:00:00 [facility] Respiratory rate 2021-12-02 15 /min University of 20:00:00 [facility] Body height 2021-12-02 175.3 cm University of 06:29:00 [facility] Body weight 2021-12-02 82.464 kg University of 06:29:00 [facility] BMI 2021-12-02 26.85 kg/m2 University of 06:29:00 [facility] Systolic blood 2021-10-26 156 mm[Hg] University of pressure 16:48:00 [facility] Diastolic blood 2021-10-26 81 mm[Hg] University o f pressure 16:48:00 [facility] Heart rate 2021-10-26 69 /min University of 16:48:00 [facility] Body temperature 2021-10-26 36.56 Odilia University of 16:48:00 [facility] Respiratory rate 2021-10-26 19 /min University of 16:48:00 [facility] Oxygen saturation 2021-10-26 99 /min University of in Arterial blood 16:48:00 [facility] by Pulse oximetry Branch Body height 2021-10-20 175.3 cm University of 19:41:00 [facility] Body weight 2021-10-20 86.183 kg University of 19:41:00 [facility] BMI 2021-10-20 28.06 kg/m2 University of 19:41:00 [facility] Systolic blood 2021-10-20 140 mm[Hg] University of pressure 20:45:00 [facility] Diastolic blood 2021-10-20 76 mm[Hg] University o f pressure 20:45:00 [facility] Heart rate 2021-10-20 62 /min University of 20:45:00 [facility] Respiratory rate 2021-10-20 15 /min University of 20:45:00 [facility] Oxygen saturation 2021-10-20 99 /min University of in Arterial blood 20:45:00 [facility] nani by Pulse oximetry [place] Body temperature 2021-10-20 35.89 Odilia University of 20:30:00 [facility] Body height 2021-10-20 175.3 cm University of 19:41:00 [facility] Body weight 2021-10-20 86.183 kg University of 19:41:00 [facility] BMI 2021-10-20 28.06 kg/m2 University of 19:41:00 [facility] Systolic blood 2021-10-04 121 mm[Hg] University of pressure 18:55:00 [facility] Diastolic blood 2021-10-04 77 mm[Hg] University o f pressure 18:55:00 [facility] Heart rate 2021-10-04 77 /min [facility] 18:55:00 [facility] Body temperature 2021-10-04 37.06 Odilia [facility] 18:53:00 [facility] Respiratory rate 2021-10-04 16 /min [facility] 18:53:00 [facility] Body height 2021-10-04 175.3 cm [facility] 18:53:00 [facility] Body weight 2021-10-04 90.084 kg [facility] 18:53:00 [facility] BMI 2021-10-04 29.33 kg/m2 [facility] 18:53:00 [facility] Oxygen saturation 2021-10-04 99 /min [facility] Arterial blood 18:53:00 [facility] by Pulse oximetry [place] Procedures Procedure Date / Time Performing Source Performed Clinician AUTHORIZATION FOR RELEASE OF PHI 2022-02-20 [facility] of 06:01:00 Unassigned, No [facility] Name Branch DISCLOSURE AND CONSENT, MEDICAL 2022-02-08 [facility] AND SURGICAL PROCEDURES 06:01:00 Unassigned, No [facility] Name Branch REFERRAL- REQUEST/RESPONSE 2022-01-16 Doctor [facility] rsity of 06:01:00 Unassigned, No [facility] CREATININE U 24 HR 2022-01-04 [facility] of 20:09:00 [facility] POCT GLUCOSE (AUTOMATED) 2022-01-04 Gail Hooker [facility] of 17:12:00 [facility] POCT GLUCOSE (AUTOMATED) 2022-01-04 Gail Hooker Univers ity of 13:27:00 [facility] MAGNESIUM 2022-01-04 [facility] of 09:25:00 [facility] COMP. METABOLIC PANEL ([id number]) 2022-01-04 [facility] Un iversity of 09:25:00 [facility] CBC WITH DIFF 2022-01-04 [facility] of 09:25:00 [facility] POCT GLUCOSE (AUTOMATED) 2022-01-04 Gail Hooker ity of 01:17:00 [facility] POCT GLUCOSE (AUTOMATED) 2022-01-03 Gail Hooker Univers ity of 22:23:00 [facility] LACTATE DEHYDROGENASE 2022-01-03 [facility] of 20:33:00 [facility] BASIC METABOLIC PANEL (NA, K, CL, 2022-01-03 [facility] of CO2, GLUCOSE, BUN, CREATININE, CA) 20:33:00 [facility] POCT GLUCOSE (AUTOMATED) 2022-01-03 Gail Hooker [facility] ity of 17:50:00 [facility] POCT GLUCOSE (AUTOMATED) 2022-01-03 Gail Hooker Univers ity of 13:18:00 [facility] MAGNESIUM 2022-01-03 [facility] of 09:15:00 [facility] COMP. METABOLIC PANEL ([id number]) 2022-01-03 [facility] iversity of 09:15:00 [facility] CBC WITH DIFF 2022-01-03 [facility] of 09:15:00 [facility] POCT GLUCOSE (AUTOMATED) 2022-01-03 Gail Hooker [facility] ity of 01:21:00 [facility] BASIC METABOLIC PANEL (NA, K, CL, 2022-01-02 [facility] of CO2, GLUCOSE, BUN, CREATININE, CA) 22:07:00 [facility] POCT GLUCOSE (AUTOMATED) 2022-01-02 Gail Hooker Univers ity of 21:36:00 [facility] TRANSTHORACIC ECHO (TTE) COMPLETE 2022-01-02 [facility] of 19:59:45 [facility] POCT GLUCOSE (AUTOMATED) 2022-01-02 Gail Hooker [facility] ity of 16:08:00 [facility] POCT GLUCOSE (AUTOMATED) 2022-01-02 Gail Hooker Univers ity of 12:49:00 [facility] PHOSPHORUS 2022-01-02 [facility] of 10:48:00 [facility] MAGNESIUM 2022-01-02 [facility] of 10:48:00 [facility] OSMOLALITY, SERUM OR PLASMA 2022-01-02 Jeri Lemon Univ ersity of 10:48:00 [facility] BASIC METABOLIC PANEL (NA, K, CL, 2022-01-02 [facility] of CO2, GLUCOSE, BUN, CREATININE, CA) 10:48:00 [facility] CBC WITH DIFF 2022-01-02 [facility] of 10:48:00 [facility] EXTERNAL PROVIDER RECORDS 2022-01-02 Doctor Aubrey gauthier of 05:01:00 Unassigned, No [facility] BASIC METABOLIC PANEL (NA, K, CL, 2022-01-02 [facility] of CO2, GLUCOSE, BUN, CREATININE, CA) 02:32:00 [facility] POCT GLUCOSE (AUTOMATED) 2022-01-02 Gail Hooker [facility] of 01:11:00 [facility] POCT GLUCOSE (AUTOMATED) 2022-01-01 Gail Hooker [facility] ity of 17:54:00 [facility] BASIC METABOLIC PANEL (NA, K, CL, 2022-01-01 [facility] of CO2, GLUCOSE, BUN, CREATININE, CA) 17:32:00 [facility] POCT GLUCOSE (AUTOMATED) 2022-01-01 Gail Hooker [facility] ity of 13:37:00 [facility] HB ECG ROUTINE & RHYTHM STRIP 2022-01-01 Enzo Chavira Un iversity of 11:03:12 [facility] MAGNESIUM 2022-01-01 [facility] of 09:15:00 [facility] BASIC METABOLIC PANEL (NA, K, CL, 2022-01-01 [facility] of CO2, GLUCOSE, BUN, CREATININE, CA) 09:15:00 [facility] POCT GLUCOSE (AUTOMATED) 2022-01-01 Gail Hooker [facility] it[facility] of 01:40:00 [facility] POCT GLUCOSE (AUTOMATED) 2021-12-31 Gail Hooker Univers ity of 23:01:00 [facility] POCT GLUCOSE (AUTOMATED) 2021-12-31 Gail Hooker [facility] ity of 18:17:00 [facility] POCT GLUCOSE (AUTOMATED) 2021-12-31 Gail Hooker [facility] ity of 14:36:00 [facility] PHOSPHORUS 2021-12-31 [facility] of 07:32:00 [facility] MAGNESIUM 2021-12-31 [facility] of 07:32:00 [facility] COMP. METABOLIC PANEL ([id number]) 2021-12-31 Tori Hendrix Un iversity of 07:32:00 [facility] CBC WITH DIFF 2021-12-31 [facility] of 07:32:00 [facility] POCT GLUCOSE (AUTOMATED) 2021-12-31 Gail Hooker [facility] of 01:31:00 [facility] BASIC METABOLIC PANEL (NA, K, CL, 2021-12-30 [facility] of CO2, GLUCOSE, BUN, CREATININE, CA) 23:44:00 [facility] POCT GLUCOSE (AUTOMATED) 2021-12-30 Gail Hooker [facility] it[facility] of 23:05:00 [facility] POCT GLUCOSE (AUTOMATED) 2021-12-30 Gail Hooker [facility] it[facility] of 17:02:00 [facility] POCT GLUCOSE (AUTOMATED) 2021-12-30 Gail Hooker [facility] ity of 13:31:00 [facility] OSMOLALITY URINE 2021-12-30 [facility] of 13:13:00 [facility] BASIC METABOLIC PANEL (NA, K, CL, 2021-12-30 [facility] of CO2, GLUCOSE, BUN, CREATININE, CA) 13:13:00 [facility] URINALYSIS 2021-12-30 [facility] of 13:13:00 [facility] CREATININE, URINE RANDOM 2021-12-30 [facility] ity of 13:13:00 [facility] UREA NITROGEN, URINE RANDOM 2021-12-30 [facility] ersity of 13:13:00 [facility] POTASSIUM, URINE RANDOM 2021-12-30 [place] [facility] 13:13:00 [facility] US RETROPERITONEAL COMPLETE 2021-12-30 [facility] ersity of 11:29:58 [facility] COMP. METABOLIC PANEL ([id number]) 2021-12-30 Tori Hendrix Un iversity of 06:04:00 [facility] INTACT PTH CALCIUM GROUP 2021-12-30 [facility] ity of 06:04:00 [facility] VITAMIN D, 25-OH 2021-12-30 [facility] of 06:04:00 [facility] ACUTE CARE VENOUS BLOOD GAS 2021-12-30 [facility] ersity of 02:28:00 [facility] POCT GLUCOSE (AUTOMATED) 2021-12-30 Gail Hooker [facility] ity of 01:27:00 [facility] POCT GLUCOSE (AUTOMATED) 2021-12-29 Gail Hooker [facility] ity of 23:35:00 [facility] MRSA / MSSA SCREEN BY PCR, NARES 2021-12-29 [facility] of 22:34:00 [facility] PHOSPHORUS 2021-12-29 [facility] of 22:16:00 [facility] MAGNESIUM 2021-12-29 [facility] of 22:16:00 [facility] HEPATIC FUNCTION PANEL ([id number]) 2021-12-29 [facility] niversity of (ALB,T.PRO,BILI 22:16:00 [facility],BU/BC,ALT,AST,ALK PHOS) [place] BASIC METABOLIC PANEL (NA, K, CL, 2021-12-29 [facility] of CO2, GLUCOSE, BUN, CREATININE, CA) 22:16:00 [facility] CBC WITH DIFF 2021-12-29 [facility] of 22:16:00 [facility] LACTIC ACID WHOLE BLOOD 2021-12-29 [facility] 22:16:00 [facility] HB ECG ROUTINE & RHYTHM STRIP 2021-12-29 [facility] iversity of 21:51:29 [facility] XR CHEST 1 VW 2021-12-29 Janna Cruz of 18:27:12 [facility] CREATINE KINASE 2021-12-29 [facility] of 16:22:00 [facility] LIPASE 2021-12-29 Anthony [facility] of 16:22:00 [facility] TROPONIN I 2021-12-29 Anthony [facility] of 16:22:00 [facility] COMP. METABOLIC PANEL ([id number]) 2021-12-29 Janna Cruz Un iversity of 16:22:00 [facility] CBC WITH DIFF 2021-12-29 Janna Cruz of 16:22:00 [facility] HB ABO GROUPING 2021-12-29 Janna Cruz [place] of 16:19:00 [facility] HB ECG ROUTINE & RHYTHM STRIP 2021-12-29 Janna Cruz Un iversity of 15:29:14 [facility] HOSPITAL ADMISSION 2021-12-29 [facility] of 05:01:00 Unassigned, No [facility] AUTHORIZATION FOR RELEASE OF PHI 2021-12-27 [facility] of 05:01:00 Unassigned, No [facility] POCT GLUCOSE (AUTOMATED) 2021-12-22 Domingo Driscoll [facility] ity of 18:55:00 [facility] POCT GLUCOSE (AUTOMATED) 2021-12-22 Domingo Driscoll [facility] ity of 14:29:00 [facility] PHOSPHORUS 2021-12-22 [facility] of 11:46:00 [facility] MAGNESIUM 2021-12-22 [facility] 11:46:00 [facility] BASIC METABOLIC PANEL (NA, K, CL, 2021-12-22 [facility] of CO2, GLUCOSE, BUN, CREATININE, CA) 11:46:00 [facility] CBC WITH DIFF 2021-12-22 Rylan [facility] of 11:46:00 [facility] POCT GLUCOSE (AUTOMATED) 2021-12-22 Domingo Driscoll [facility] ity of 02:16:00 [facility] POCT GLUCOSE (AUTOMATED) 2021-12-21 Domingo Driscoll [facility] ity of 21:48:00 [facility] POCT GLUCOSE (AUTOMATED) 2021-12-21 Domingo Driscoll [facility] ity of 16:44:00 [facility] XR CHEST 1 VW 2021-12-21 [facility] of 16:11:00 [facility] POCT GLUCOSE (AUTOMATED) 2021-12-21 Domingo Driscoll [facility] ity of 13:41:00 [facility] PHOSPHORUS 2021-12-21 [facility] of 11:11:00 [facility] MAGNESIUM 2021-12-21 [facility] of 11:11:00 [facility] BASIC METABOLIC PANEL (NA, K, CL, 2021-12-21 [facility] creekJamila [facility] of CO2, GLUCOSE, BUN, CREATININE, CA) 11:11:00 [facility] CBC WITH DIFF 2021-12-21 [facility] of 11:11:00 [facility] POCT GLUCOSE (AUTOMATED) 2021-12-21 Domingo Driscoll [facility] ity of 02:39:00 [facility]SE (AUTOMATED) 2021-12-20 Domingo Driscoll Univers ity of 20:59:00 Gail [facility] POCT GLUCOSE (AUTOMATED) 2021-12-20 Domingo Driscoll [facility] ity of 17:38:00 [facility] ([facility]OMATED) 2021-12-20 Domingo Driscoll Univers ity of 14:07:00 [facility] PHOSPHORUS 2021-12-20 [facility] of 11:13:00 [facility] MAGNESIUM 2021-12-20 [facility] of 11:13:00 [facility] BASIC METABOLIC PANEL (NA, K, CL, 2021-12-20 [facility] of CO2, GLUCOSE, BUN, CREATININE, CA) 11:13:00 [facility] CBC WITH DIFF 2021-12-20 [facility] of 11:13:00 [facility] POCT GLUCOSE (AUTOMATED) 2021-12-20 Domingo Driscoll [facility] ity of 04:34:00 [facility] POCT GLUCOSE (AUTOMATED) 2021-12-20 Domingo Driscoll Univers ity of 02:13:00 [facility] POCT GLUCOSE (AUTOMATED) 2021-12-19 Domingo Driscoll Univers ity of 22:32:00 [facility] POCT GLUCOSE (AUTOMATED) 2021-12-19 Domingo Driscoll [facility] ity of 17:04:00 [facility] POCT GLUCOSE (AUTOMATED) 2021-12-19 Domingo Driscoll Univers ity of 12:12:00 [facility] CBC WITH DIFF 2021-12-19 [facility] of 11:41:00 [facility] PHOSPHORUS 2021-12-19 [facility] of 11:40:00 [facility] MAGNESIUM 2021-12-19 [facility] of 11:40:00 [facility] BASIC METABOLIC PANEL (NA, K, CL, 2021-12-19 [facility] of CO2, GLUCOSE, BUN, CREATININE, CA) 11:40:00 [facility] POCT GLUCOSE (AUTOMATED) 2021-12-19 Domingo Driscoll ity of 02:37:00 [facility] POCT GLUCOSE (AUTOMATED) 2021-12-18 Domingo Driscoll ity of 21:51:[address] [facility] [address] ABDOMEN PELVIS WO CONTRAST 2021-12-18 [facility] of 19:17:38 [facility] XR CHEST 1 VW 2021-12-18 [facility] of 18:19:00 [facility] POCT GLUCOSE (AUTOMATED) 2021-12-18 Domingo Driscoll [facility] ity of 16:38:00 [facility] URINALYSIS 2021-12-18 [facility] of 16:22:00 [facility] URINE CULTURE 2021-12-18 [facility] of 16:22:00 [facility] BLOOD CULTURE SCREEN 2021-12-18 [facility] 15:33[facility]00 [facility] POCT GLUCOSE (AUTOMATED) 2021-12-18 Domingo Driscoll Univers ity of 13:22:00 [facility] PHOSPHORUS 2021-12-18 [facility] of 09:57:00 [facility] MAGNESIUM 2021-12-18 [facility] of 09:57:00 [facility] BASIC METABOLIC PANEL (NA, K, CL, 2021-12-18 [facility] of CO2, GLUCOSE, BUN, CREATININE, CA) 09:57:00 [facility] CBC WITH DIFF 2021-12-18 [facility] of 09:57:00 [facility] POCT GLUCOSE (AUTOMATED) 2021-12-18 Domingo Driscoll Univers ity of 02:15:00 [facility] POCT GLUCOSE (AUTOMATED) 2021-12-17 Domingo Driscoll ity of 21:44:00 [facility] POCT GLUCOSE (AUTOMATED) 2021-12-17 Domingo Driscoll ity of 16:34:00 [facility] POCT GLUCOSE (AUTOMATED) 2021-12-17 Domingo Driscoll Univers ity of 13:35:00 [facility] PHOSPHORUS 2021-12-17 [facility] of 11:02:00 [facility] MAGNESIUM 2021-12-17 [facility] of 11:02:00 [facility] BASIC METABOLIC PANEL (NA, K, CL, 2021-12-17 Jamila Mckeon [place] of CO2, GLUCOSE, BUN, CREATININE, CA) 11:02:00 [facility] CBC WITH DIFF 2021-12-17 esther [facility] of 11:02:00 [facility] POCT GLUCOSE (AUTOMATED) 2021-12-17 Domingo Driscoll Univers ity of 02:11:00 [facility] POCT GLUCOSE (AUTOMATED) 2021-12-16 Domingo Driscoll ity of 22:25:00 [facility] PHOSPHORUS 2021-12-16 [facility] of 17:30:00 [facility] MAGNESIUM 2021-12-16 [facility] of 17:30:00 [facility] BASIC METABOLIC PANEL (NA, K, CL, 2021-12-16 Gisselle [facility] fatou [facility] of CO2, GLUCOSE, BUN, CREATININE, CA) 17:30:00 [facility] CBC WITH DIFF 2021-12-16 [facility] of 17:30:00 [facility] POCT GLUCOSE (AUTOMATED) 2021-12-16 Domingo Driscoll ity of 16:48:00 [facility] XR KUB 2021-12-16 [facility] of 14:08:00 [facility] POCT GLUCOSE (AUTOMATED) 2021-12-16 Domingo Driscoll Univers ity of 13:20:00 [facility] POCT GLUCOSE (AUTOMATED) 2021-12-16 Domingo Driscoll ity of 02:18:00 [facility] POCT GLUCOSE (AUTOMATED) 2021-12-15 Domingo Driscoll Univers ity of 22:09:00 [facility] POCT GLUCOSE (AUTOMATED) 2021-12-15 Domingo Driscoll Univers ity of 17:04:00 [facility] POCT GLUCOSE (AUTOMATED) 2021-12-15 YamilaDomingo Univers ity of 13:34:00 Gail [facility] POCT GLUCOSE (AUTOMATED) 2021-12-15 Yamila Domingo Univers ity of 01:34:00 Gail [facility] POCT GLUCOSE (AUTOMATED) 2021-12-14 Doimngo Driscoll Univers ity of 22:36:00 Gail [facility] POCT GLUCOSE (AUTOMATED) 2021-12-14 Yamila Domingo Univers ity of 16:21:00 Gail [facility] POCT GLUCOSE (AUTOMATED) 2021-12-14 Yamila Domingo [facility] ity of 13:42:00 [facility] PO[facility]SE (AUTOMATED) 2021-12-14 Domingo Driscoll Univers ity of 02:03:00 [facility] PO[facility] GLUCOSE (AUTOMATED) 2021-12-13 Yamila Domingo Univers ity of 21:43:00 [facility] POCT GLUCOSE (AUTOMATED) 2021-12-13 Domingo Driscoll Univers ity of 21:43:00 Gail [facility] POCT GLUCOSE (AUTOMATED) 2021-12-13 Yamila Domingo [facility] ity of 17:20:00 [facility] POCT GLUCOSE (AUTOMATED) 2021-12-13 Yamila Domingo [facility] ity of 17:20:00 [facility] POCT GLUCOSE (AUTOMATED) 2021-12-13 Domingo Driscoll Univers ity of 14:12:00 [facility] PO[facility] GLUCOSE (AUTOMATED) 2021-12-13 Domingo Driscoll Univers ity of 14:12:00 [facility] BASIC METABOLIC PANEL (NA, K, CL, 2021-12-13 Gisselle melvin [place] of CO2, GLUCOSE, BUN, CREATININE, CA) 10:09:00 [facility]FF 2021-12-13 Gisselle Briceno [facility] of 10:09:00 [facility] BASIC METABOLIC PANEL (NA, K, CL, 2021-12-13 Gisselle melvin [place] of CO2, GLUCOSE, BUN, CREATININE, CA) 10:09:00 [facility] CBC WITH DIFF 2021-12-13 Gisselle Briceno [facility] of 10:09[facility]00 [facility] 2021-12-13 [facility] of 05:15:07 [facility] RBC 2021-12-13 Gisselleanay Briceno [facility] of 05:15:07 [facility] POCT GLUCOSE (AUTOMATED) 2021-12-13 Domingo Driscoll [facility] ity of 01:27:00 Gail [facility] POCT GLUCOSE (AUTOMATED) 2021-12-13 Yamila [facility] ity of 01:27:00 [facility] XR CHEST 1 VW 2021-12-12 [facility] of 22:38:00 [place] [facility] XR CHEST 1 VW 2021-12-12 Gisselle Poli [facility] of 22:38:00 [facility] PO[facility]SE (AUTOMATED) 2021-12-12 Yamila [facility] ity of 21:33:00 [facility] POCT GLUCOSE (AUTOMATED) 2021-12-12 Yamila [facility] ity of 21:33:00 [facility] PHOSPHORUS 2021-12-12 [facility] 21:30:00 [facility] MAGNESIUM 2021-12-12 [facility] of 21:30:00 [facility] BASIC METABOLIC PANEL (NA, K, CL, 2021-12-12 Gisselleanay maya [facility] CO2, GLUCOSE, BUN, CREATININE, CA) 21:30:00 [facility] CBC WITH DIFF 2021-12-12 [facility]:30[facility]12 [facility] 21:30:00 [facility] 2021-12-12 [facility] 21:30:00 [facility] BASIC METABOLIC PANEL (NA, K, CL, 2021-12-12 Gisselleanay Briceno [facility] CO2, GLUCOSE, BUN, CREATININE, CA) 21:30:00 [facility] CBC WITH DIFF 2021-12-12 [facility] of 21:30:00 [facility] ABG+COOX+NA+K+GLU+CA2+ 2021-12-12 Domingo Driscoll [facility] y of 20:59:00 [facility] ABG+COOX+NA+K+GLU+CA2+ 2021-12-12 Domingo Driscoll [facility] y of 20:59:00 [facility] FL TIME OR (NON-REPORTABLE) 2021-12-12 [facility] ersity of 20:55:39 [facility] FL TIME OR (NON-REPORTABLE) 2021-12-12 [facility] ersity of 20:55:39 [facility] ABG+COOX+NA+K+GLU+CA2+ 2021-12-12 Domingo Driscoll [facility] y of 20:46:00 [facility] ABG+COOX+NA+K+GLU+CA2+ 2021-12-12 Domingo Driscoll [facility] y of 20:46:00 [facility] ABG+COOX+NA+K+GLU+CA2+ 2021-12-12 [facility] of 19:26:00 [facility] ABG+COOX+NA+K+GLU+CA2+ 2021-12-12 Annika, [facility] y of 19:26:00 [facility] ABG+COOX+NA+K+GLU+CA2+ 2021-12-12 [facility] of 17:47:00 [facility] ABG+COOX+NA+K+GLU+CA2+ 2021-12-12 [facility] y of 17:47:00 [facility] TRANSFUSE PACKED RBC (IN ML) 2021-12-12 [facility] of 17:46:00 [facility] TRANSFUSE PACKED RBC (IN ML) 2021-12-12 [facility] of 17:46:00 [facility] NERVE BLOCK 2021-12-12 [facility] of 16:03:18 [facility] SURGICAL PATHOLOGY EXAM 2021-12-12 [facility] ty of 15:42:00 [facility] ABG+COOX+NA+K+GLU+CA2+ 2021-12-12 [facility] y of 15:27:00 [facility] ABG+COOX+NA+K+GLU+CA2+ 2021-12-12 [facility] 15:27:00 [facility] ABG+COOX+NA+K+GLU+CA2+ 2021-12-12 [facility] of 14:24:00 [facility] ABG+COOX+NA+K+GLU+CA2+ 2021-12-12 [facility] y of 14:24:00 [facility] INTUBATION 2021-12-12 [facility] [place] of 12:23:00 [facility] COLECTOMY 2021-12-12 Yamila [facility] of 12:05:00 [facility] HEMAPORT PLACEMENT 2021-12-12 Yamila [facility] of 12:05:00 [facility] CYSTOSCOPY 2021-12-12 Yamila [facility] of 12:05:00 [facility] URETERAL CATHETER PLACEMENT 2021-12-12 Yamila [facility] ersity of 12:05:00 [facility] EXPLORATORY LAPAROTOMY 2021-12-12 Domingo Driscoll [facility] y of 12:05:00 [facility] COLECTOMY 2021-12-12 Domingo Driscoll [place] of 12:05:00 [facility] HEMAPORT PLACEMENT 2021-12-12 Yamila [facility] of 12:05:00 [facility] CYSTOSCOPY 2021-12-12 Yamila [facility] of 12:05:00 [facility] URETERAL CATHETER PLACEMENT 2021-12-12 Yamila [facility] ersity of 12:05:00 [facility] EXPLORATORY LAPAROTOMY 2021-12-12 Domingo Driscoll [facility] y of 12:05:00 [facility] POCT GLUCOSE (AUTOMATED) 2021-12-12 [facility] ity of 11:21:00 [facility] POCT GLUCOSE (AUTOMATED) 2021-12-12 Lucia, Univers ity of 11:21:00 [facility] BASIC METABOLIC PANEL (NA, K, CL, 2021-12-12 [facility] CO2, GLUCOSE, BUN, CREATININE, CA) 10:18:00 [facility] CBC WITH DIFF 2021-12-12 [facility] of 10:18:00 [facility] PROTHROMBIN TIME / INR 2021-12-12 [place] y of 10:18:00 [facility] ACTIVATED PARTIAL THRMPLAS VEL 2021-12-12 [place] [facility] niversity of 10:18:00 [facility] BASIC METABOLIC PANEL (NA, K, CL, 2021-12-12 [facility] CO2, GLUCOSE, BUN, CREATININE, CA) 10:18:00 [facility] WITH DIFF 2021-12-12 [facility] of 10:18:00 [facility] PROTHROMBIN TIME / INR 2021-12-12 Marnie, [facility] y of 10:18:00 [facility] ACTIVATED PARTIAL THRMPLAS VEL 2021-12-12 Marnie, [facility] n[facility] of 10:18:00 [facility] POCT GLUCOSE (AUTOMATED) 2021-12-12 Lucia, Univers ity of 02:07:00 [facility] POCT GLUCOSE (AUTOMATED) 2021-12-12 Lucia, Univers ity of 02:07:00 [facility] PREPARE PACKED RBC 2021-12-11 [place] [facility] of 23:14:05 [facility] PREPARE PACKED RBC 2021-12-11 Marnie, [facility] of 23:14:05 [facility] POCT GLUCOSE (AUTOMATED) 2021-12-11 Lucia, Univers ity of 23:12:00 [facility] POCT GLUCOSE (AUTOMATED) 2021-12-11 [facility] it[facility] of 23:12:00 [facility] COVID-19 (ID NOW RAPID TESTING) 2021-12-11 Jon Fonseca, [place] of 23:03:00 [facility] LAB ONLY COVID INTERPRETATION 2021-12-11 Jon Fonseca, U niversity of 23:03:00 [facility] COVID-19 (ID NOW RAPID TESTING) 2021-12-11 Jon Fonseca, [place] of 23:03:00 [facility] LAB ONLY COVID INTERPRETATION 2021-12-11 Jon Fonseca, U niversity of 23:03:00 [facility] POCT GLUCOSE (AUTOMATED) 2021-12-11 Reinertson, Univers ity of 17:06:00 [facility] POCT GLUCOSE (AUTOMATED) 2021-12-11 Reinertson, Univers ity of 17:06:00 [facility] POCT GLUCOSE (AUTOMATED) 2021-12-11 Reinertson, Univers ity of 13:17:00 [facility] POCT GLUCOSE (AUTOMATED) 2021-12-11 Reinertson, Univers ity of 13:17:00 [facility] COMP. METABOLIC PANEL ([id number]) 2021-12-11 Gisselle Janak de Un iversity of 10:40:00 [facility] [place] CBC WITH DIFF 2021-12-11 Gisselle Janak de [place] of 10:40:00 [facility] [place] PROTHROMBIN TIME / INR 2021-12-11 Gisselle Janak de Universit y of 10:40:00 [facility] [place] COMP. METABOLIC PANEL ([id number]) 2021-12-11 Gisselle Janak de Un iversity of 10:40:00 [facility] [place] CBC WITH DIFF 2021-12-11 Gisselle Janak de [place] of 10:40:00 [facility] PROTHROMBIN TIME / INR 2021-12-11 Gisselle Janak de Universit y of 10:40:00 [facility] POCT GLUCOSE (AUTOMATED) 2021-12-11 Reinertson, Univers ity of 01:28:00 [facility] POCT GLUCOSE (AUTOMATED) 2021-12-11 Reinertson, Univers ity of 01:28:00 [facility] POCT GLUCOSE (AUTOMATED) 2021-12-10 Reinertson, Univers ity of 22:00:00 [facility] POCT GLUCOSE (AUTOMATED) 2021-12-10 Reinertson, Univers ity of 22:00:00 [facility] POCT GLUCOSE (AUTOMATED) 2021-12-10 Reinertson, Univers ity of 17:22:00 [facility] POCT GLUCOSE (AUTOMATED) 2021-12-10 Reinertson, Univers ity of 17:22:00 [facility] POCT GLUCOSE (AUTOMATED) 2021-12-10 Reinertson, Univers ity of 13:16:00 [facility] POCT GLUCOSE (AUTOMATED) 2021-12-10 Reinbritton, Univers ity of 13:16:00 [facility] MAGNESIUM 2021-12-10 [facility] of 11:49:00 [facility] BASIC METABOLIC PANEL (NA, K, CL, 2021-12-10 [facility] of CO2, GLUCOSE, BUN, CREATININE, CA) 11:49:00 [facility] MAGNESIUM 2021-12-10 [facility] of 11:49:00 [facility] BASIC METABOLIC PANEL (NA, K, CL, 2021-12-10 [facility] of CO2, GLUCOSE, BUN, CREATININE, CA) 11:49:00 [facility] CBC WITHOUT DIFF 2021-12-10 [facility] of 11:48:00 [facility] CBC WITHOUT DIFF 2021-12-10 [facility] of 11:48:00 [facility] POCT GLUCOSE (AUTOMATED) 2021-12-10 [facility] ity of 01:33:00 [facility] POCT GLUCOSE (AUTOMATED) 2021-12-[address] [facility] ity of 01:33:00 [facility] HB ABO GROUPING 2021-12-09 [facility] of 21:46:00 [facility] HB ABO GROUPING 2021-12-09 [facility] 21:46:00 [facility] POCT GLUCOSE (AUTOMATED) 2021-12-09 Reinertson, Univers ity of 21:17:00 [facility] POCT GLUCOSE (AUTOMATED) 2021-12-09 Reinertson, Univers ity of 21:17:00 [facility] POCT GLUCOSE (AUTOMATED) 2021-12-09 Reinertson, Univers ity of 16:27:00 [facility] POCT GLUCOSE (AUTOMATED) 2021-12-09 Reinertson, Univers ity of 16:27:00 [facility] POCT GLUCOSE (AUTOMATED) 2021-12-09 Reinertson, Univers ity of 14:36:00 [facility] POCT GLUCOSE (AUTOMATED) 2021-12-09 Reinerts, Univers ity of 14:36:00 [facility] MAGNESIUM 2021-12-09 [facility] of 10:21:00 [facility] HEPATIC FUNCTION PANEL ([id number]) 2021-12-09 Marnie, [facility] niversity of (ALB,T.PRO,BILI 10:21:00 [facility] T,BU/BC,ALT,AST,ALK PHOS) [place] BASIC METABOLIC PANEL (NA, K, CL, 2021-12-09 [facility] of CO2, GLUCOSE, BUN, CREATININE, CA) 10:21:00 [facility] CBC WITHOUT DIFF 2021-12-09 [facility] of 10:21:00 [facility] MAGNESIUM 2021-12-09 [facility] 10:21:00 [facility] HEPATIC FUNCTION PANEL ([id number]) 2021-12-09 [place], [facility] niversity of (ALB,T.PRO,BILI 10:21:00 [facility] T,BU/BC,ALT,AST,ALK PHOS) [place] BASIC METABOLIC PANEL (NA, K, CL, 2021-12-09 [facility] of CO2, GLUCOSE, BUN, CREATININE, CA) 10:21:00 [facility] CBC WITHOUT DIFF 2021-12-09 [facility] of 10:21:00 [facility] POCT GLUCOSE (AUTOMATED) 2021-12-09 [facility] ity of 02:22:00 [facility] POCT GLUCOSE (AUTOMATED) 2021-12-09 Reinertskathy, [facility] ity of 02:22:00 [facility] POCT GLUCOSE (AUTOMATED) 2021-12-08 Reinelias, [facility] ity of 21:42:00 [facility] POCT GLUCOSE (AUTOMATED) 2021-12-08 Reinertskathy, Univers ity of 21:42:00 [facility] POCT GLUCOSE (AUTOMATED) 2021-12-08 [facility], [facility] ity of 17:38:00 [facility] POCT GLUCOSE (AUTOMATED) 2021-12-08 [facility], [facility] ity of 17:38:00 [facility] MAGNESIUM 2021-12-08 [facility] of 09:24:00 [facility] HEPATIC FUNCTION PANEL ([id number]) 2021-12-08 Marnie, [facility] of (ALB,T.PRO,BILI 09:24:00 [facility] T,BU/BC,ALT,AST,ALK PHOS) [place] BASIC METABOLIC PANEL (NA, K, CL, 2021-12-08 [facility] of CO2, GLUCOSE, BUN, CREATININE, CA) 09:24:00 [facility] CBC WITHOUT DIFF 2021-12-08 [facility] of 09:24:00 [facility] MAGNESIUM 2021-12-08 [facility] of 09:24:00 [facility] HEPATIC FUNCTION PANEL ([id number]) 2021-12-[address] [place] [facility] of (ALB,T.PRO,BILI 09:24:00 [facility] T,BU/BC,ALT,AST,ALK PHOS) [place] BASIC METABOLIC PANEL (NA, K, CL, 2021-12-08 [facility] of CO2, GLUCOSE, BUN, CREATININE, CA) 09:24:00 [facility] CBC WITHOUT DIFF 2021-12-08 [facility] [place] [facility] of 09:24:00 [facility] POCT GLUCOSE (AUTOMATED) 2021-12-08 [facility] ity of 01:44:00 [facility] POCT GLUCOSE (AUTOMATED) 2021-12-08 Reinertson, Univers ity of 01:44:00 [facility] POCT GLUCOSE (AUTOMATED) 2021-12-07 Reinertson, Univers ity of 22:20:00 [facility] POCT GLUCOSE (AUTOMATED) 2021-12-07 Reinertson, Univers ity of 22:20:00 [facility] POCT GLUCOSE (AUTOMATED) 2021-12-07 Reinertson, Univers ity of 16:44:00 [facility] POCT GLUCOSE (AUTOMATED) 2021-12-07 Reinertson, Univers ity of 16:44:00 [facility] CBC WITHOUT DIFF 2021-12-07 Marnie, [facility] of 15:26:00 [facility] CBC WITHOUT DIFF 2021-12-07 [place] of 15:26:00 [facility] HB ABO GROUPING 2021-12-07 [place], [facility] of 15:24:00 [facility] HB ABO GROUPING 2021-12-07 Marnie, [facility] of 15:24:00 [facility] POCT GLUCOSE (AUTOMATED) 2021-12-07 Reinertson, Univers ity of 13:11:00 [facility] POCT GLUCOSE (AUTOMATED) 2021-12-07 Reinertson, Univers ity of 13:11:00 [facility] MAGNESIUM 2021-12-07 Marnie, [facility] of 10:50:00 [facility] CARCINOEMBRYONIC ANTIGEN 2021-12-07 Marnie, [facility] ity of 10:50:00 [facility] BASIC METABOLIC PANEL (NA, K, CL, 2021-12-07 [place] of CO2, GLUCOSE, BUN, CREATININE, CA) 10:50:00 [facility] CBC WITHOUT DIFF 2021-12-07 Marnie, [facility] of 10:50:00 [facility] MAGNESIUM 2021-12-07 [place] of 10:50:00 [facility] CARCINOEMBRYONIC ANTIGEN 2021-12-07 Marnie, [facility] ity of 10:50:00 [facility] BASIC METABOLIC PANEL (NA, K, CL, 2021-12-07 [facility] of CO2, GLUCOSE, BUN, CREATININE, CA) 10:50:00 [facility] CBC WITHOUT DIFF 2021-12-07 [facility] of 10:50:00 [facility] HB ECG ROUTINE & RHYTHM STRIP 2021-12-07 Webb Fonseca, U niversity of 02:04:36 [facility] HB ECG ROUTINE & RHYTHM STRIP 2021-12-07 Webb Fonseca, U niversity of 02:04:36 [facility] POCT GLUCOSE (AUTOMATED) 2021-12-07 Reinertson, Univers ity of 01:56:00 [facility] POCT GLUCOSE (AUTOMATED) 2021-12-07 Reinertson, Univers ity of 01:56:00 [facility] CT ABDOMEN PELVIS WO CONTRAST 2021-12-07 Webb Fonseca, U niversity of 00:06:50 [facility] CT THORAX WO CONTRAST 2021-12-07 Webb Fonseca, Universit y of 00:06:50 [facility] CT ABDOMEN PELVIS WO CONTRAST 2021-12-07 Webb Fonseca, U niversity of 00:06:50 [facility] CT THORAX WO CONTRAST 2021-12-07 Webb Fonseca, Universit y of 00:06:50 [facility] POCT GLUCOSE (AUTOMATED) 2021-12-06 Reinertson, Univers ity of 20:35:00 [facility] POCT GLUCOSE (AUTOMATED) 2021-12-06 Reinertson, Univers ity of 20:35:00 [facility] TRANSTHORACIC ECHO (TTE) COMPLETE 2021-12-06 [facility] of 19:12:30 [facility] TRANSTHORACIC ECHO (TTE) COMPLETE 2021-12-06 [facility] of 19:12:30 [facility] POCT GLUCOSE (AUTOMATED) 2021-12-06 Reinertson, Univers ity of 17:18:00 [facility] POCT GLUCOSE (AUTOMATED) 2021-12-06 Reinertson, Univers ity of 17:18:00 [facility] POCT GLUCOSE (AUTOMATED) 2021-12-06 Reinertson, Univers ity of 17:18:00 [facility] MAGNESIUM 2021-12-06 [place] of 14:02:00 [facility] CARCINOEMBRYONIC ANTIGEN 2021-12-06 Bilal, Ali Univers ity of 14:02:00 [facility] BASIC METABOLIC PANEL (NA, K, CL, 2021-12-06 Marnie, [facility] of CO2, GLUCOSE, BUN, CREATININE, CA) 14:02:00 [facility] CBC WITHOUT DIFF 2021-12-06 Marnie, Daly [place] of 14:02:00 [facility] PREALBUMIN, SERUM 2021-12-06 Marnie, Daly [place] of 14:02:00 [facility] MAGNESIUM 2021-12-06 Marnie, [facility] of 14:02:00 [facility] CARCINOEMBRYONIC ANTIGEN 2021-12-06 Bilal, Ali Univers ity of 14:02:00 [facility] BASIC METABOLIC PANEL (NA, K, CL, 2021-12-06 [place] CO2, GLUCOSE, BUN, CREATININE, CA) 14:02:00 [facility] CBC WITHOUT DIFF 2021-12-06 [place] 14:02:00 [facility] PREALBUMIN, SERUM 2021-12-06 [place], [facility] of 14:02:00 [facility] MAGNESIUM 2021-12-06 Marnie, [facility] of 14:02:00 [facility] CARCINOEMBRYONIC ANTIGEN 2021-12-06 Bilal, Ali Univers ity of 14:02:00 [facility] BASIC METABOLIC PANEL (NA, K, CL, 2021-12-06 [place], [facility] of CO2, GLUCOSE, BUN, CREATININE, CA) 14:02:00 [facility] CBC WITHOUT DIFF 2021-12-06 Marnie, [facility] of 14:02:00 [facility] POCT GLUCOSE (AUTOMATED) 2021-12-06 Reinertson, Univers ity of 13:22:00 [facility] POCT GLUCOSE (AUTOMATED) 2021-12-06 Reinertson, Univers ity of 13:22:00 [facility] POCT GLUCOSE (AUTOMATED) 2021-12-06 Reinertson, Univers ity of 13:22:00 [facility] POCT GLUCOSE (AUTOMATED) 2021-12-06 Reinertson, Univers ity of 02:27:00 [facility] POCT GLUCOSE (AUTOMATED) 2021-12-06 Reinertson, Univers ity of 02:27:00 [facility] POCT GLUCOSE (AUTOMATED) 2021-12-06 Reinertson, Univers ity of 02:27:00 [facility] POCT GLUCOSE (AUTOMATED) 2021-12-05 Reinertson, Univers ity of 23:46:00 [facility] POCT GLUCOSE (AUTOMATED) 2021-12-05 Reinertson, Univers ity of 23:46:00 [facility] POCT GLUCOSE (AUTOMATED) 2021-12-05 Reinertskathy, Univers ity of 23:46:00 [facility] BRAF 2021-12-05 [facility] 21:55:00 [facility] KRAS MUTATION 2021-12-05 [facility] of :55:00 [facility] NRAS MUTATION 2021-12-05 [facility]cia [facility] of 21:55:00 [facility] BRAF 2021-12-05 Alecia [facility] of 21:55:00 [facility] KRAS MUTATION 2021-12-05 Alecia [facility] of 21:55:00 [facility] NRAS MUTATION 2021-12-05 Alecia [facility] of 21:55:00 [facility] BRAF 2021-12-05 Alecia [facility] of 21:23:00 [facility] KRAS MUTATION 2021-12-05 Alecia [facility] of 21:23:00 [facility] SURGICAL PATHOLOGY EXAM 2021-12-05 [facility] 21:23[facility]00 [facility] NRAS MUTATION 2021-12-05 Alecia [facility] of 21:23:00 [facility] BRAF 2021-12-05 Alecia [facility] of 21:23:00 [facility] KRAS MUTATION 2021-12-05 Alecia [facility] of 21:23:00 [facility] SURGICAL PATHOLOGY EXAM 2021-12-05 [facility] 21:23:00 [facility] NRAS MUTATION 2021-12-05 Alecia [facility] of 21:23:00 [facility] COLONOSCOPY 2021-12-05 [place], [facility] of 20:40:00 [facility] COLONOSCOPY 2021-12-05 Alecia [facility] of 20:40:00 [facility] COLONOSCOPY (ENDO) 2021-12-05 [facility] of 20:28:23 [facility] COLONOSCOPY (ENDO) 2021-12-05 [facility] of 20:28:23 [facility] COLONOSCOPY (ENDO) 2021-12-05 [facility] of 20:28:23 [facility] POCT GLUCOSE (AUTOMATED) 2021-12-05 Hao [facility] Univers ity of 17:12:00 [facility] POCT GLUCOSE (AUTOMATED) 2021-12-05 Loren Davenporthan Univers ity of 17:12:00 [facility] POCT GLUCOSE (AUTOMATED) 2021-12-05 Zackary [facility]portl[facility]an [facility] ity of 17:12:00 [facility] POCT GLUCOSE (AUTOMATED) 2021-12-05 Zackary [facility]portl[facility]an [facility] ity of 17:12:00 [facility] POCT GLUCOSE (AUTOMATED) 2021-12-05 Zackary [facility]enportlshan [facility] ity of 13:33:00 [facility] POCT GLUCOSE (AUTOMATED) 2021-12-05 Loren Davenporthan Univers ity of 13:33:00 [facility] POCT GLUCOSE (AUTOMATED) 2021-12-05 Zackary [facility]enportlshan [facility] ity of 13:33:00 [facility] [place] POCT GLUCOSE (AUTOMATED) 2021-12-05 Zackary Davenportlshan [facility] ity of 13:33:00 [facility] MAGNESIUM 2021-12-05 [facility] of 07:14:00 [facility] [place] BASIC METABOLIC PANEL (NA, K, CL, 2021-12-05 [facility] of CO2, GLUCOSE, BUN, CREATININE, CA) 07:14:00 [facility] [place] CBC WITH DIFF 2021-12-05 Marnie, [facility] of 07:14:00 [facility] PROTHROMBIN TIME / INR 2021-12-05 [place] [facility] of 07:14:00 [facility] ACTIVATED PARTIAL THRMPLAS VEL 2021-12-05 [place], [facility] [facility] of 07:14:00 [facility] [place] MAGNESIUM 2021-12-05 [place] [facility] of 07:14:00 [facility] [place] BASIC METABOLIC PANEL (NA, K, CL, 2021-12-05 [place] [facility] of CO2, GLUCOSE, BUN, CREATININE, CA) 07:14:00 [facility] [place] CBC WITH DIFF 2021-12-05 [place] [facility] of 07:14:00 [facility] [place] PROTHROMBIN TIME / INR 2021-12-05 [place] [facility] y of 07:14:00 [facility] [place] ACTIVATED PARTIAL THRMPLAS VEL 2021-12-05 [place] [facility] [facility] of 07:14:00 [facility] [place] MAGNESIUM 2021-12-05 Marnie, Daly [place] of 07:14:00 [facility] [place] BASIC METABOLIC PANEL (NA, K, CL, 2021-12-05 [place] CO2, GLUCOSE, BUN, CREATININE, CA) 07:14:00 [facility] [place] CBC WITH DIFF 2021-12-05 [place] [facility] of 07:14:00 [facility] [place] PROTHROMBIN TIME / INR 2021-12-05 [place] [facility] [facility] of 07:14:00 [facility] [place] ACTIVATED PARTIAL THRMPLAS VEL 2021-12-05 [place], [place] [facility] of 07:14:00 [facility] [place] MAGNESIUM 2021-12-05 [place] [facility] of 07:14:00 [facility] [place] BASIC METABOLIC PANEL (NA, K, CL, 2021-12-05 Marnie, [facility] of CO2, GLUCOSE, BUN, CREATININE, CA) 07:14:00 [facility] [place] CBC WITH DIFF 2021-12-05 [place], [facility] [facility] of 07:14:00 [facility] PROTHROMBIN TIME / INR 2021-12-05 [place], [facility] [facility] of 07:14:00 [facility] ACTIVATED PARTIAL THRMPLAS VEL 2021-12-05 Marnie, [facility] of 07:14:00 [facility] [place] POCT GLUCOSE (AUTOMATED) 2021-12-05 Hao Davenport [facility] it[facility] of 02:21:00 [facility] [place] POCT GLUCOSE (AUTOMATED) 2021-12-05 Hao Davenport [facility] it[facility] of 02:21:00 [facility] POCT GLUCOSE (AUTOMATED) 2021-12-05 Loren Davenporthan Univers ity of 02:21:00 [facility] POCT GLUCOSE (AUTOMATED) 2021-12-05 Zackary Davenportlshan [facility] it[facility] of 02:21:00 [facility] [place] POCT GLUCOSE (AUTOMATED) 2021-12-04 Hao Davenport [facility] it[facility] of 21:48:00 [facility] [place] POCT GLUCOSE (AUTOMATED) 2021-12-04 Hao Davenport [facility] it[facility] of 21:48:00 [facility] [place] POCT GLUCOSE (AUTOMATED) 2021-12-04 Hao Davenport [facility] of 21:48:00 [facility] [place] POCT GLUCOSE (AUTOMATED) 2021-12-04 Hao Davenport [facility] of 21:48:00 [facility] [place] CBC WITH DIFF 2021-12-04 [place] [facility] of 17:09:00 [facility] [place] CBC WITH DIFF 2021-12-04 [place] [facility] of 17:09:00 [facility] [place] CBC WITH DIFF 2021-12-04 [place] [facility] of 17:09:00 [facility] [place] CBC WITH DIFF 2021-12-04 [place] [facility] of 17:09:00 [facility] [place] POCT GLUCOSE (AUTOMATED) 2021-12-04 Hao Davenport [facility] it[facility] of 16:50:00 [facility] [place] POCT GLUCOSE (AUTOMATED) 2021-12-04 Hao Davenport [facility] of 16:50:00 [facility] [place] POCT GLUCOSE (AUTOMATED) 2021-12-04 Zackary Davenportlshan [facility] it[facility] of 16:50:00 [facility] [place] POCT GLUCOSE (AUTOMATED) 2021-12-04 Hao Davenport [facility] it[facility] of 16:50:00 [facility] [place] POCT GLUCOSE (AUTOMATED) 2021-12-04 Hao Davenport [facility] it[facility] of 12:41:00 [facility] [place] POCT GLUCOSE (AUTOMATED) 2021-12-04 Hao Davenport [facility] of 12:41:00 [facility] [place] POCT GLUCOSE (AUTOMATED) 2021-12-04 Hao Davenport [facility] of 12:41:00 [facility] [place] POCT GLUCOSE (AUTOMATED) 2021-12-04 Hao Davenport [facility] it[facility] of 12:41:00 [facility] [place] CBC WITH DIFF 2021-12-04 [place], [place] of 10:46:00 [facility] CBC WITH DIFF 2021-12-04 Jancovic, [place] of 10:46:00 [facility] CBC WITH DIFF 2021-12-04 Jancovich, [place] of 10:46:00 [facility] CBC WITH DIFF 2021-12-04 Jancovic, [place] of 10:46:00 [facility] POCT GLUCOSE (AUTOMATED) 2021-12-04 Hao Davenport [facility] it[facility] of 01:46:00 [facility] [place] POCT GLUCOSE (AUTOMATED) 2021-12-04 Hao Davenport [facility] it[facility] of 01:46:00 [facility] [place] POCT GLUCOSE (AUTOMATED) 2021-12-04 Hao Davenport [facility] it[facility] of 01:46:00 [facility] [place] POCT GLUCOSE (AUTOMATED) 2021-12-04 Hao Davenport [facility] it[facility] of 01:46:00 [facility] [place] CBC WITH DIFF 2021-12-03 [facility] 22:44:00 [facility] GIOVANI AURIS CULTURE 2021-12-03 [facility] 22:44:00 [facility] [place] CBC WITH DIFF 2021-12-03 [facility] [place] of 22:44:00 [facility] GIOVANI AURIS CULTURE 2021-12-03 Wilber [facility] of 22:44:00 [facility] [place] CBC WITH DIFF 2021-12-03 [facility] [place] of 22:44:00 [facility] GIOVANI AURIS CULTURE 2021-12-03 [facility] of 22:44:00 [facility] [place] CBC WITH DIFF 2021-12-03 [facility] [place] of 22:44:00 [facility] GIOVANI AURIS CULTURE 2021-12-03 [facility] of 22:44:00 [facility] [place] POCT GLUCOSE (AUTOMATED) 2021-12-03 Hao Davenport [facility] ity of 21:02:00 [facility] [place] POCT GLUCOSE (AUTOMATED) 2021-12-03 Zackary Davenportlshan [facility] it[facility] of 21:02:00 [facility] [place] POCT GLUCOSE (AUTOMATED) 2021-12-03 Zackary Davenportlshan [facility] of 21:02:00 [facility] [place] POCT GLUCOSE (AUTOMATED) 2021-12-03 Zackary Davenportlshan [facility] of 21:02:00 [facility] [place] POCT GLUCOSE (AUTOMATED) 2021-12-03 Zackary Davenportlshan [facility] of 16:55:00 [facility] [place] POCT GLUCOSE (AUTOMATED) 2021-12-03 Zackary Davenportlshan [facility] of 16:55:00 [facility] [place] POCT GLUCOSE (AUTOMATED) 2021-12-03 Zackary Davenportlshan [facility] it[facility] of 16:55:00 [facility] [place] POCT GLUCOSE (AUTOMATED) 2021-12-03 Zackary Davenportlshan [facility] of 16:55:00 [facility] [place] POCT GLUCOSE (AUTOMATED) 2021-12-03 Zackary Davenportlshan [facility] of 13:12:00 [facility] [place] POCT GLUCOSE (AUTOMATED) 2021-12-03 Zackary Davenportlshan [facility] of 13:12:00 [facility] [place] POCT GLUCOSE (AUTOMATED) 2021-12-03 Loren Davenporthan Univers ity of 13:12:00 [facility] [place] POCT GLUCOSE (AUTOMATED) 2021-12-03 Zackary Davenportlshan [facility] it[facility] of 13:12:00 [facility] [place] BASIC METABOLIC PANEL (NA, K, CL, 2021-12-03 [facility] CO2, GLUCOSE, BUN, CREATININE, CA) 09:07:00 [facility] [place] CBC WITHOUT DIFF 2021-12-03 [facility] of 09:07:00 [facility] [place] BASIC METABOLIC PANEL (NA, K, CL, 2021-12-03 [facility] CO2, GLUCOSE, BUN, CREATININE, CA) 09:07:00 [facility] [place] CBC WITHOUT DIFF 2021-12-03 [facility] of 09:07:00 [facility] [place] BASIC METABOLIC PANEL (NA, K, CL, 2021-12-03 [facility] of CO2, GLUCOSE, BUN, CREATININE, CA) 09:07:00 [facility] [place] CBC WITHOUT DIFF 2021-12-03 [facility] of 09:07:00 [facility] [place] BASIC METABOLIC PANEL (NA, K, CL, 2021-12-03 [facility] of CO2, GLUCOSE, BUN, CREATININE, CA) 09:07:00 [facility] [place] CBC WITHOUT DIFF 2021-12-03 [facility] of 09:07:00 [facility] [place] POCT GLUCOSE (AUTOMATED) 2021-12-03 [facility] 01:30:00 [facility] [place] POCT GLUCOSE (AUTOMATED) 2021-12-03 Issac [facility] Univers ity of 01:30:00 [facility] [place] POCT GLUCOSE (AUTOMATED) 2021-12-03 [facility] ity of 01:30:00 [facility] [place] POCT GLUCOSE (AUTOMATED) 2021-12-03 Davenport [facility] ity of 01:30:00 [facility] [place] ESOPHAGOGASTRODUODENOSCOPY 2021-12-02 KodyRobi [facility] rsity of 21:49:00 [facility] [place] ESOPHAGOGASTRODUODENOSCOPY 2021-12-02 KodyRobi [facility] rsity of 21:49:00 [facility] [place] EGD (ENDO) 2021-12-02 [facility] of 21:48:19 [facility] [place] EGD (ENDO) 2021-12-02 [facility] of 21:48:19 [facility] [place] EGD (ENDO) 2021-12-02 [facility] of 21:48:19 [facility] [place] EGD (ENDO) 2021-12-02 [facility] of 21:48:19 [facility] [place] PREPARE PACKED RBC 2021-12-02 [facility] of 21:36:39 Jose [facility] [place] PREPARE PACKED RBC 2021-12-02 Kenny Bañuelos of 21:36:39 [facility] PREPARE PACKED RBC 2021-12-02 [facility] of 21:36:39 [facility] PREPARE PACKED RBC 2021-12-02 [facility] of 21:36:39 [facility] CBC WITHOUT DIFF 2021-12-02 Talon, [facility] of 20:30:00 [facility] [place] CBC WITHOUT DIFF 2021-12-02 Talon, [facility] of 20:30:00 [facility] [place] CBC WITHOUT DIFF 2021-12-02 Talon, [facility] of 20:30:00 [facility] [place] CBC WITHOUT DIFF 2021-12-02 Talon, [facility] of 20:30:00 [facility] [place] TRANSFUSE PACKED RBC 2021-12-02 [facility] of 18:05:00 [facility] TRANSFUSE PACKED RBC 2021-12-02 [facility] of 18:05:00 [facility] TRANSFUSE PACKED RBC 2021-12-02 [facility] of 18:05:00 [facility] TRANSFUSE PACKED RBC 2021-12-02 [facility] of 18:05:00 [facility] POCT GLUCOSE (AUTOMATED) 2021-12-02 Zackary Davenportlshan Univers ity of 17:59:00 [facility] [place] POCT GLUCOSE (AUTOMATED) 2021-12-02 Loren aDvenporthan Univers ity of 17:59:00 [facility] [place] POCT GLUCOSE (AUTOMATED) 2021-12-02 Davenport, Hao Univers ity of 17:59:00 [facility] [place] POCT GLUCOSE (AUTOMATED) 2021-12-02 Loren Davenporthan Univers ity of 17:59:00 [facility] [place] TRANSFUSE PACKED RBC 2021-12-02 Wilber [facility] of 13:05:00 [facility] [place] TRANSFUSE PACKED RBC 2021-12-02 Wilber [facility] of 13:05:00 [facility] [place] TRANSFUSE PACKED RBC 2021-12-02 Wilber [facility] of 13:05:00 [facility] [place] TRANSFUSE PACKED RBC 2021-12-02 [facility] of 13:05:00 [facility] [place] PREPARE PACKED RBC 2021-12-02 [facility] of 12:57:47 [facility] [place] PREPARE PACKED RBC 2021-12-02 Merino [facility] of 12:57:47 [facility] [place] PREPARE PACKED RBC 2021-12-02 Merino [facility] of 12:57:47 [facility] [place] PREPARE PACKED RBC 2021-12-02 [place] [facility] of 12:57:47 [facility] [place] POCT GLUCOSE (AUTOMATED) 2021-12-02 Davenport, Hao Univers ity of 12:50:00 [facility] [place] POCT GLUCOSE (AUTOMATED) 2021-12-02 Davenport, Hao Univers ity of 12:50:00 [facility] [place] POCT GLUCOSE (AUTOMATED) 2021-12-02 Davenport, Hao Univers ity of 12:50:00 [facility] [place] POCT GLUCOSE (AUTOMATED) 2021-12-02 Davenport, Hao Univers ity of 12:50:00 [facility] [place] BASIC METABOLIC PANEL (NA, K, CL, 2021-12-02 Ion [facility] August[facility] University of CO2, GLUCOSE, BUN, CREATININE, CA) 11:33:00 [facility] [place] [facility] CBC WITH DIFF 2021-12-02 Ion [facility] Augustin [place] of 11:33:00 [facility] [place] [facility] BASIC METABOLIC PANEL (NA, K, CL, 2021-12-02 Ion [facility] August[place] University of CO2, GLUCOSE, BUN, CREATININE, CA) 11:33:00 [facility] [place] [facility] CBC WITH DIFF 2021-12-02 Ion [facility] August[facility] University of 11:33:00 [facility] [place] BASIC METABOLIC PANEL (NA, K, CL, 2021-12-02 Ion [facility] University of CO2, GLUCOSE, BUN, CREATININE, CA) 11:33:00 [facility] [place] [facility] CBC WITH DIFF 2021-12-02 Ion [facility] Won University of 11:33:00 [facility] [place] BASIC METABOLIC PANEL (NA, K, CL, 2021-12-02 Ion [facility] [place] University of CO2, GLUCOSE, BUN, CREATININE, CA) 11:33:00 [facility] [place] [facility] CBC WITH DIFF 2021-12-02 Ion [facility] University of 11:33:00 [facility] [place] [facility] TRANSFUSE PACKED RBC 2021-12-02 Donna Mora of 07:57:00 [facility] [place] TRANSFUSE PACKED RBC 2021-12-02 Donna Mora [facility] 07:57:00 [facility] TRANSFUSE PACKED RBC 2021-12-02 Donna Mora [facility] 07:57:00 [facility] TRANSFUSE PACKED RBC 2021-12-02 Donna Mora [facility] 07:57:00 [facility] PREPARE PACKED RBC 2021-12-02 Donna Mora [place] f 07:44:04 [facility] [place] [facility] PREPARE PACKED RBC 2021-12-[address] [facility] [place] [place] o f 07:44:04 [facility] [place] [facility] PREPARE PACKED RBC 2021-12-[address] [facility] [place] [place] o f 07:44:04 [facility] [place] [facility] PREPARE PACKED RBC 2021-12-[address] [facility] [place] [place] o f 07:44:04 [facility] [place] [facility] TRANSFUSE PACKED RBC 2021-12-02 Donna Mora [facility] 05:05:00 [facility] [place] TRANSFUSE PACKED RBC 2021-12-02 Donna Mora [facility] 05:05:00 [facility] [place] [facility] TRANSFUSE PACKED RBC 2021-12-02 Donna Mora [facility] 05:05:00 [facility] [place] TRANSFUSE PACKED RBC 2021-12-02 Donna Mora [place] of 05:05:00 [facility] [place] CRITICAL CARE 2021-12-02 Donna Mora [facility] 04:47:06 [facility] [place] CRITICAL CARE 2021-12-02 Donna Mora [place] of 04:47:06 [facility] [place] CRITICAL CARE 2021-12-02 Donna Mora [facility] 04:47:06 [facility] [place] CRITICAL CARE 2021-12-02 Donna Mora [facility] 04:47:06 [facility] [place] XR CHEST 1 VW 2021-12-02 Donna Mora [facility] 04:18:26 [facility] XR CHEST 1 VW 2021-12-02 Donna Mora [place] of 04:18:26 [facility] [place] [facility] XR CHEST 1 VW 2021-12-02 Donna Mora of 04:18:26 [facility] XR CHEST 1 VW 2021-12-02 Donna Mora of 04:18:26 [facility] [place] COVID-19 (ID NOW RAPID TESTING) 2021-12-02 Donna Mora 04:03:00 [facility] [place] LAB ONLY COVID INTERPRETATION 2021-12-02 Donna Mora niversity of 04:03:00 [facility] [place] [facility] COVID-19 (ID NOW RAPID TESTING) 2021-12-02 Donna Mora of 04:03:00 [facility] [place] LAB ONLY COVID INTERPRETATION 2021-12-02 Donna Mora niversity of 04:03:00 [facility] [place] COVID-19 (ID NOW RAPID TESTING) 2021-12-02 Donna Mora of 04:03:00 [facility] [place] LAB ONLY COVID INTERPRETATION 2021-12-02 Donna Mora niversity of 04:03:00 [facility] [place] [facility] COVID-19 (ID NOW RAPID TESTING) 2021-12-02 Donna Mora of 04:03:00 [facility] [place] LAB ONLY COVID INTERPRETATION 2021-12-02 Donna Mora niversity of 04:03:00 [facility] [place] HB ECG ROUTINE & RHYTHM STRIP 2021-12-02 Donna Mora niversity of 03:54:24 [facility] [place] HB ECG ROUTINE & RHYTHM STRIP 2021-12-02 Donna Mora niversity of 03:54:24 [facility] [place] HB ECG ROUTINE & RHYTHM STRIP 2021-12-02 Donna Mora niversity of 03:54:24 [facility] [place] HB ECG ROUTINE & RHYTHM STRIP 2021-12-02 Donna Mora niversity of 03:54:24 [facility] [place] [facility] HB ABO GROUPING 2021-12-02 Donna Mora of 03:47:00 [facility] [place] HB ABO GROUPING 2021-12-02 Donna Mora [place] of 03:47:00 [facility] [place] [facility] HB ABO GROUPING 2021-12-02 Donna Mora [place] of 03:47:00 [facility] [place] [facility] HB ABO GROUPING 2021-12-02 Donna Mora of 03:47:00 [facility] [place] FERRITIN SERUM 2021-12-02 Felix Lemon [place] of 03:45:00 [facility] [place] [facility] TROPONIN I 2021-12-02 Donna Mora of 03:45:00 [facility] [place] COMP. METABOLIC PANEL ([id number]) 2021-12-02 Donna Mora niversity of 03:45:00 [facility] [place] [facility] IRON PANEL 2021-12-02 Felix Lemon [facility] of 03:45:00 [facility] [place] [facility] CBC WITH DIFF 2021-12-02 Donna Mora University of 03:45:00 [facility] PROTHROMBIN TIME / INR 2021-12-02 Donna Mora Universi ty of 03:45:00 [facility] FIBRINOGEN 2021-12-02 Felix Lemon University of 03:45:00 [facility] N-TERMINAL PRO-BNP 2021-12-02 Donna Mora University o f 03:45:00 [facility] FERRITIN SERUM 2021-12-02 Ion [facility] University of 03:45:00 [facility] TROPONIN I 2021-12-[address] [facility] University of 03:45:00 [facility] [place] [facility] COMP. METABOLIC PANEL ([id number]) 2021-12-02 Donna Mora niversity of 03:45:00 [facility] [place] [facility] IRON PANEL 2021-12-02 Felix Lemon University of 03:45:00 [facility] [place] [facility] CBC WITH DIFF 2021-12-02 Donna Mora [place] of 03:45:00 [facility] [place] PROTHROMBIN TIME / INR 2021-12-02 Donna Mora Universi ty of 03:45:00 [facility] FIBRINOGEN 2021-12-02 Ion [facility] University of 03:45:00 [facility] N-TERMINAL PRO-BNP 2021-12-02 Donna Mora [place] [facility] f 03:45:00 [facility] FERRITIN SERUM 2021-12-02 Felix Lemon [place] of 03:45:00 [facility] [place] [facility] TROPONIN I 2021-12-02 Donna Mora University of 03:45:00 [facility] [place] [facility] COMP. METABOLIC PANEL ([id number]) 2021-12-02 Donna Mora niversity of 03:45:00 [facility] IRON PANEL 2021-12-02 Ion [facility] University of 03:45:00 [facility] CBC WITH DIFF 2021-12-02 Donna Mora University of 03:45:00 [facility] PROTHROMBIN TIME / INR 2021-12-02 Donna Mora Universi ty of 03:45:00 [facility] FIBRINOGEN 2021-12-02 Ion [facility] University of 03:45:00 [facility] N-TERMINAL PRO-BNP 2021-12-02 Donna Mora University o f 03:45:00 [facility] FERRITIN SERUM 2021-12-02 Ion [facility] University of 03:45:00 [facility] TROPONIN I 2021-12-02 Donna Mora [place] of 03:45:00 [facility] COMP. METABOLIC PANEL ([id number]) 2021-12-02 Donna Mora U niversity of 03:45:00 [facility] IRON PANEL 2021-12-02 Felix Lemon [place] of 03:45:00 [facility] CBC WITH DIFF 2021-12-02 Donna Mroa [place] of 03:45:00 [facility] PROTHROMBIN TIME / INR 2021-12-02 [facility] 03:45:00 [facility] FIBRINOGEN 2021-12-02 Felix Lemon [facility] of 03:45:00 [facility] N-TERMINAL PRO-BNP 2021-12-02 Donna Mora [place] f 03:45:00 [facility] CONSENT/REFUSAL FOR DIAGNOSIS AND 2021-12-02 [facility] 03:18:31 Unassigned, No [facility] CONSENT/REFUSAL FOR DIAGNOSIS AND 2021-12-02 [facility] 03:18:31 Unassigned, No [facility] CONSENT/REFUSAL FOR DIAGNOSIS AND 2021-12-02 [facility] 03:18:31 Unassigned, No [facility] CONSENT/REFUSAL FOR DIAGNOSIS AND 2021-12-02 [facility] 03:18:31 Unassigned, No [facility] AUTHORIZATION FOR RELEASE OF PHI 2021-11-21 [facility] of 05:01:00 Unassigned, No [facility] POCT GLUCOSE (AUTOMATED) 2021-10-26 Gail Hooker Univers ity of 17:34:00 [facility] POCT GLUCOSE (AUTOMATED) 2021-10-26 Ashley Hookerrick Univers ity of 15:19:00 [facility] POCT GLUCOSE (AUTOMATED) 2021-10-26 Nhung Gail Univers ity of 02:09:00 [facility] POCT GLUCOSE (AUTOMATED) 2021-10-25 Gail Hooker Univers ity of 21:37:00 [facility] POCT GLUCOSE (AUTOMATED) 2021-10-25 Gail Hooker Univers ity of 18:09:00 [facility] POCT GLUCOSE (AUTOMATED) 2021-10-25 Gail Hooker Univers ity of 14:14:00 [facility] MAGNESIUM 2021-10-25 [facility] 10:39:00 [facility] BASIC METABOLIC PANEL (NA, K, CL, 2021-10-25 [facility] CO2, GLUCOSE, BUN, CREATININE, CA) 10:39:00 [facility] CBC WITHOUT DIFF 2021-10-25 [facility] of 10:39:00 [facility] COVID-19 (ID NOW RAPID TESTING) 2021-10-25 Jeffry Murry [place] of 03:51:00 [facility] LAB ONLY COVID INTERPRETATION 2021-10-25 JeanmarieJeffry dorman iversity of 03:51:00 [facility] POCT GLUCOSE (AUTOMATED) 2021-10-25 Nhung, Gail [facility] ity of 01:26:00 [facility] POCT GLUCOSE (AUTOMATED) 2021-10-24 Nhung, Gail [facility] ity of 22:45:00 [facility] POCT GLUCOSE (AUTOMATED) 2021-10-24 Nhung, Gail [facility] ity of 16:48:00 [facility] POCT GLUCOSE (AUTOMATED) 2021-10-24 Nhung, Gail [facility] ity of 13:17:00 [facility] BASIC METABOLIC PANEL (NA, K, CL, 2021-10-24 Charles Jane [place] of CO2, GLUCOSE, BUN, CREATININE, CA) 09:56:00 [facility] CBC WITH DIFF 2021-10-24 Buck, [facility] of 09:56:00 [facility] POCT GLUCOSE (AUTOMATED) 2021-10-24 Nhung, Gail [facility] it[facility] of 02:00:00 [facility] POCT GLUCOSE (AUTOMATED) 2021-10-23 Nhung, Gail [facility] it[facility] of 22:59:00 [facility] POCT GLUCOSE (AUTOMATED) 2021-10-23 Nhung, Gail [facility] it[facility] of 17:03:00 [facility] POCT GLUCOSE (AUTOMATED) 2021-10-23 Nhung, Gail [facility] it[facility] of 13:37:00 [facility] MAGNESIUM 2021-10-23 Jarod mendenhall [place] of 10:11:00 [facility] BASIC METABOLIC PANEL (NA, K, CL, 2021-10-23 [facility] [place] of CO2, GLUCOSE, BUN, CREATININE, CA) 10:11:00 [facility] CBC WITH DIFF 2021-10-23 [facility] 10:11:00 [facility] POCT GLUCOSE (AUTOMATED) 2021-10-23 Sweet, Gail [facility] ity of 01:09:00 [facility] POCT GLUCOSE (AUTOMATED) 2021-10-22 Sweet, Gail [facility] ity of 23:33:00 [facility] POCT GLUCOSE (AUTOMATED) 2021-10-22 Sweet, Gail [facility] it[facility] of 22:22:00 [facility] POCT GLUCOSE (AUTOMATED) 2021-10-22 Sweet, Gail [facility] it[facility] of 18:03:00 [facility] POCT GLUCOSE (AUTOMATED) 2021-10-22 Sweet, Gail [facility] it[facility] of 14:22:00 [facility] BASIC METABOLIC PANEL (NA, K, CL, 2021-10-22 Domingo [facility] of CO2, GLUCOSE, BUN, CREATININE, CA) 10:11:00 [facility] CBC WITHOUT DIFF 2021-10-22 [facility] of 10:11:00 [facility] POCT GLUCOSE (AUTOMATED) 2021-10-22 Sweet, Gail [facility] of 01:10:00 [facility] POCT GLUCOSE (AUTOMATED) 2021-10-21 Sweet, Gail [facility] it[facility] of 21:59:00 [facility] POCT GLUCOSE (AUTOMATED) 2021-10-21 Sweet, Gail [facility] it[facility] of 16:51:00 [facility] POCT GLUCOSE (AUTOMATED) 2021-10-21 Sweet, Gail [facility] it[facility] of 16:51:00 [facility] POCT GLUCOSE (AUTOMATED) 2021-10-21 Sweet, Gail [facility] it[facility] of 14:46:00 [facility] POCT GLUCOSE (AUTOMATED) 2021-10-21 Sweet, Gail [facility] it[facility] of 14:46:00 [facility] THYROID STIMULATING HORMONE 2021-10-21 Buck [facility] ersity of 08:43:00 [facility] BASIC METABOLIC PANEL (NA, K, CL, 2021-10-21 Charles Jane [place] of CO2, GLUCOSE, BUN, CREATININE, CA) 08:43:00 [facility] CBC WITHOUT DIFF 2021-10-21 Buck [facility] of 08:43:00 [facility] THYROID STIMULATING HORMONE 2021-10-21 Buck [facility] ersity of 08:43:00 [facility] BASIC METABOLIC PANEL (NA, K, CL, 2021-10-21 Charles Jane [facility] of [facility], GLUCOSE, BUN, CREATININE, CA) 08:43:00 [facility] CBC WITHOUT DIFF 2021-10-21 Royce Jane [place] of 08:43:00 [facility] POCT GLUCOSE (AUTOMATED) 2021-10-21 Sweet, Gail [facility] it[facility] of 02:11:00 [facility] POCT GLUCOSE (AUTOMATED) 2021-10-21 Sweet, Gail [facility] it[facility] of 02:11:00 [facility] POCT GLUCOSE (AUTOMATED) 2021-10-21 Sweet, Gail [facility] it[facility] of 01:24:00 [facility] POCT GLUCOSE (AUTOMATED) 2021-10-21 Sweet, Gail [facility] it[facility] of 01:24:00 [facility] POCT GLUCOSE (AUTOMATED) 2021-10-20 Sweet, Gail [facility] it[facility] of 22:02:00 [facility] POCT GLUCOSE (AUTOMATED) 2021-10-20 Sweet, Gail [facility] it[facility] of 22:02:00 [facility] EGD (ENDO) 2021-10-20 [facility] of 20:05:03 [facility] EGD (ENDO) 2021-10-20 [facility] of 20:05:03 [facility] ESOPHAGOGASTRODUODENOSCOPY 2021-10-20 Isma Joyner Uni versity of 19:59:00 [facility] ESOPHAGOGASTRODUODENOSCOPY 2021-10-20 Isma Joyner Uni versity of 19:59:00 [facility] POCT GLUCOSE (AUTOMATED) 2021-10-20 Sweet, Gail [facility] it[facility] of 17:35:00 [facility] POCT GLUCOSE (AUTOMATED) 2021-10-20 Sweet, Gail [facility] it[facility] of 17:35:00 [facility] POCT GLUCOSE (AUTOMATED) 2021-10-20 Sweet, Gail [facility] it[facility] of 13:34:00 [facility] POCT GLUCOSE (AUTOMATED) 2021-10-20 Sweet, Gail [facility] it[facility] of 13:34:00 [facility] CBC WITH DIFF 2021-10-20 Lorenzo [facility] of 08:37:00 Nydia [facility] FIBRINOGEN 2021-10-20 Shaim, [facility] of 08:37:00 [facility] CBC WITH DIFF 2021-10-20 Lorenzo [facility] of 08:37:00 [facility] FIBRINOGEN 2021-10-20 Sarah [facility] of 08:37:00 [facility] POCT GLUCOSE (AUTOMATED) 2021-10-20 Lul Cisneros Univers ity of 01:09:00 [facility] POCT GLUCOSE (AUTOMATED) 2021-10-20 Lul Cisneros [facility] ity of 01:09:00 [facility] PROTHROMBIN TIME / INR 2021-10-19 [place], Wade [facility] of 23:46:00 [facility] ACTIVATED PARTIAL THRMPLAS VEL 2021-10-19 [place], Wade U niversity of 23:46:00 [facility] PROTHROMBIN TIME / INR 2021-10-19 [place], Wade [facility] of 23:46:00 [facility] ACTIVATED PARTIAL THRMPLAS VEL 2021-10-19 [place], Wade [facility] of 23:46:00 [facility] POCT GLUCOSE (AUTOMATED) 2021-10-19 Lul Cisneros Univers ity of 22:00:00 [facility] POCT GLUCOSE (AUTOMATED) 2021-10-19 Lul Cisneros Univers ity of 22:00:00 [facility] PREPARE PACKED RBC 2021-10-19 Lorenzo [facility] of 19:42:15 [facility] PREPARE PACKED RBC 2021-10-19 Lorenzo [facility] of 19:42:15 [facility] COMP. METABOLIC PANEL (05806) 2021-10-19 Harman Stein Un iversity of 18:24:00 [facility] HIV 1/2 AG-AB WITH REFLEX 2021-10-19 Duran [facility] Univ sity of 18:24:00 [facility] COMP. METABOLIC PANEL (51025) 2021-10-19 Harman Stein Un iversity of 18:24:00 [facility] HIV 1/2 AG-AB WITH REFLEX 2021-10-19 Aga Smith Univ sity of 18:24:00 [facility] HB ABO GROUPING 2021-10-19 Lorenzo [facility] of 18:20:00 [facility] HB ABO GROUPING 2021-10-19 [facility] 18:20:00 Nydia [facility] HB ECG ROUTINE & RHYTHM STRIP 2021-10-19 Wade López Un iversity of 16:56:31 [facility] HB ECG ROUTINE & RHYTHM STRIP 2021-10-19 Wade López Un iversity of 16:56:31 [facility] POCT GLUCOSE (AUTOMATED) 2021-10-19 Lul Cisneros Univers ity of 16:50:00 [facility] POCT GLUCOSE (AUTOMATED) 2021-10-19 Lul Cisneros Univers ity of 16:50:00 [facility] CBC WITHOUT DIFF 2021-10-19 [facility] 14:11[facility]00 [facility] CBC WITHOUT DIFF 2021-10-19 Emil, [facility] of 14:11:00 [facility] POCT GLUCOSE (AUTOMATED) 2021-10-19 Lul Cisneros Univers ity of 12:54:00 [facility] POCT GLUCOSE (AUTOMATED) 2021-10-19 Lul Cisneros Univers ity of 12:54:00 [facility] POCT GLUCOSE (AUTOMATED) 2021-10-19 Lul Cisneros [facility] ity of 03:11:00 [facility] POCT GLUCOSE (AUTOMATED) 2021-10-19 Lul Cisneros [facility] ity of 03:11:00 [facility] POCT GLUCOSE (AUTOMATED) 2021-10-19 Lul Cisneros Univers ity of 01:43:00 [facility] POCT GLUCOSE (AUTOMATED) 2021-10-19 Lul Cisneros Univers ity of 01:43:00 [facility] POCT GLUCOSE (AUTOMATED) 2021-10-18 Lul Cisneros Univers ity of 21:47:00 [facility] POCT GLUCOSE (AUTOMATED) 2021-10-18 Lul Cisneros Univers ity of 21:47:00 [facility] COVID-19 (ID NOW RAPID TESTING) 2021-10-18 Luz Davila [place] of 16:43:00 [facility] LAB ONLY COVID INTERPRETATION 2021-10-18 Luz Davila Un iversity of 16:43:00 [facility] COVID-19 (ID NOW RAPID TESTING) 2021-10-18 Luz Davila of 16:43:00 [facility] LAB ONLY COVID INTERPRETATION 2021-10-18 Luz Davila Un iversity of 16:43:00 [facility] PHOSPHORUS 2021-10-18 Lola, Adnan [facility] of 16:41:00 [facility] MAGNESIUM 2021-10-18 Lola, Adnan [facility] of 16:41:00 [facility] COMP. METABOLIC PANEL ([id number]) 2021-10-18 Luz Davila Un iversity of 16:41:00 [facility] CBC WITH DIFF 2021-10-18 Lola, Adnan [facility] of 16:41:00 [facility] N-TERMINAL PRO-BNP 2021-10-18 Lola, Adnan [facility] of 16:41:00 [facility] PHOSPHORUS 2021-10-18 Lola, Adnan [facility] of 16:41:00 [facility] MAGNESIUM 2021-10-18 Lola, Adnan [facility] of 16:41:00 [facility] COMP. METABOLIC PANEL ([id number]) 2021-10-18 Luz Davila Un iversity of 16:41:00 [facility] CBC WITH DIFF 2021-10-18 Lola, Brendannan University of 16:41:00 [facility] N-TERMINAL PRO-BNP 2021-10-18 Lola, Adnan [facility] of 16:41:00 [facility] POCT GLUCOSE (AUTOMATED) 2021-10-18 Lul Cisneros Univers ity of 16:40:00 [facility] POCT GLUCOSE (AUTOMATED) 2021-10-18 Lul Cisneros Univers ity of 16:40:00 [facility] URINE DRUG (IMMUNOASSAY) - 2021-10-18 Luz Davila Unive rsity of COMPREHENSIVE DRUG SCREEN 16:35:00 [facility] URINE DRUG (IMMUNOASSAY) - 2021-10-18 Luz Davila Unive rsity of COMPREHENSIVE DRUG SCREEN 16:35:00 [facility] POCT GLUCOSE (AUTOMATED) 2021-10-18 Lul Cisneros Univers ity of 13:20:00 [facility] POCT GLUCOSE (AUTOMATED) 2021-10-18 Lul Cisneros Univers ity of 13:20:00 [facility] POCT GLUCOSE (AUTOMATED) 2021-10-18 Lul Cisneros Univers ity of 01:18:00 [facility] POCT GLUCOSE (AUTOMATED) 2021-10-18 Lul Cisneros Univers ity of 01:18:00 [facility] POCT GLUCOSE (AUTOMATED) 2021-10-17 Lul Cisneros Univers ity of 21:53:00 [facility] POCT GLUCOSE (AUTOMATED) 2021-10-17 Lul Cisneros Univers ity of 21:53:00 [facility] POCT GLUCOSE (AUTOMATED) 2021-10-17 Lul Cisneros Univers ity of 16:31:00 [facility] POCT GLUCOSE (AUTOMATED) 2021-10-17 Lul Cisneros Univers ity of 16:31:00 [facility] POCT GLUCOSE (AUTOMATED) 2021-10-17 Lul Cisneros Univers ity of 12:12:00 [facility] POCT GLUCOSE (AUTOMATED) 2021-10-17 Lul Cisneros Univers ity of 12:12:00 [facility] POCT GLUCOSE (AUTOMATED) 2021-10-17 Lul Cisneros Univers ity of 01:27:00 [facility] POCT GLUCOSE (AUTOMATED) 2021-10-17 Lul Cisneros Univers ity of 01:27:00 [facility] POCT GLUCOSE (AUTOMATED) 2021-10-16 Lul Cisneros Univers ity of 21:41:00 [facility] POCT GLUCOSE (AUTOMATED) 2021-10-16 Lul Cisneros Univers ity of 21:41:00 [facility] POCT GLUCOSE (AUTOMATED) 2021-10-16 Lul Cisneros Univers ity of 16:30:00 [facility] POCT GLUCOSE (AUTOMATED) 2021-10-16 Lul Cisneros Univers ity of 16:30:00 [facility] POCT GLUCOSE (AUTOMATED) 2021-10-16 Lul Cisneros Univers ity of 12:28:00 [facility] POCT GLUCOSE (AUTOMATED) 2021-10-16 Lul Cisneros Univers ity of 12:28:00 [facility] BASIC METABOLIC PANEL (NA, K, CL, 2021-10-16 Alexander Patel [place] of CO2, GLUCOSE, BUN, CREATININE, CA) 09:01:00 [facility] CBC WITH DIFF 2021-10-16 Anthony Patel [place] of 09:01:00 [facility] BASIC METABOLIC PANEL (NA, K, CL, 2021-10-16 Alexander Patel [place] of CO2, GLUCOSE, BUN, CREATININE, CA) 09:01:00 [facility] CBC WITH DIFF 2021-10-16 Anthony Patel [place] of 09:01:00 [facility] POCT GLUCOSE (AUTOMATED) 2021-10-16 Lul Cisneros Univers ity of 01:14:00 [facility] POCT GLUCOSE (AUTOMATED) 2021-10-16 Lul Cisneros Univers ity of 01:14:00 [facility] POCT GLUCOSE (AUTOMATED) 2021-10-15 Lul Cisneros Univers ity of 21:27:00 [facility] POCT GLUCOSE (AUTOMATED) 2021-10-15 Lul Cisneros Univers ity of 21:27:00 [facility] POCT GLUCOSE (AUTOMATED) 2021-10-15 Lul Cisneros Univers ity of 16:42:00 [facility] POCT GLUCOSE (AUTOMATED) 2021-10-15 Lul Cisneros Univers ity of 16:42:00 [facility] POCT GLUCOSE (AUTOMATED) 2021-10-15 Lul Cisneros Univers ity of 12:42:00 [facility] POCT GLUCOSE (AUTOMATED) 2021-10-15 Lul Cisneros Univers ity of 12:42:00 [facility] BASIC METABOLIC PANEL (NA, K, CL, 2021-10-15 [facility] of CO2, GLUCOSE, BUN, CREATININE, CA) 08:51:00 [facility] CBC WITH DIFF 2021-10-15 Lorenzo [facility] of 08:51:00 [facility] BASIC METABOLIC PANEL (NA, K, CL, 2021-10-15 [place] [facility] of CO2, GLUCOSE, BUN, CREATININE, CA) 08:51:00 [facility] CBC WITH DIFF 2021-10-15 Lorenzo [facility] of 08:51:00 [facility] POCT GLUCOSE (AUTOMATED) 2021-10-15 Lul Cisneros Univers ity of 01:35:00 [facility] POCT GLUCOSE (AUTOMATED) 2021-10-15 Lul Cisneros Univers ity of 01:35:00 [facility] CBC WITH DIFF 2021-10-15 [facility] of 00:42:00 [facility] CBC WITH DIFF 2021-10-15 [facility] of 00:42:00 [facility] POCT GLUCOSE (AUTOMATED) 2021-10-14 Lul Cisneros ity of 21:29:00 [facility] POCT GLUCOSE (AUTOMATED) 2021-10-14 Lul Cisneros [facility] ity of 21:29:00 [facility] PREPARE PACKED RBC 2021-10-14 codey, [facility] of 19:47:59 [facility] PREPARE PACKED RBC 2021-10-14 [facility] of 19:47:59 [facility] POCT GLUCOSE (AUTOMATED) 2021-10-14 Lul Cisneros [facility] ity of 16:24:00 [facility] POCT GLUCOSE (AUTOMATED) 2021-10-14 Lul Cisneros [facility] ity of 16:24:00 [facility] OSMOLALITY, SERUM OR PLASMA 2021-10-14 Diego Gonzalez Uni versity of 15:24:00 [facility] VITAMIN B12, LEVEL 2021-10-14 [facility] of 15:24:00 [facility] FOLATE 2021-10-14 [facility] of 15:24:00 [facility] OSMOLALITY, SERUM OR PLASMA 2021-10-14 Diego Gonzalez Uni versity of 15:24:00 [facility] VITAMIN B12, LEVEL 2021-10-14 [facility] of 15:24:00 [facility] FOLATE 2021-10-14 [facility] of 15:24:00 [facility] CBC WITH DIFF 2021-10-14 [facility] of 15:22:00 [facility] HB ABO GROUPING 2021-10-14 [facility] of 15:22:00 [facility] CBC WITH DIFF 2021-10-14 [facility] of 15:22:00 [facility] HB ABO GROUPING 2021-10-14 [facility] of 15:22:00 [facility] OSMOLALITY URINE 2021-10-14 Diego Gonzalez [place] of 13:30:00 [facility] OSMOLALITY URINE 2021-10-14 Diego Gonzalez [facility] 13:30:00 [facility] URINALYSIS 2021-10-14 Diego Gonzalez [facility] 13:29:00 [facility] URINALYSIS 2021-10-14 Diego Gonzalez [place] of 13:29:00 [facility] POCT GLUCOSE (AUTOMATED) 2021-10-14 Lul Cisneros Univers ity of 12:40:00 [facility] POCT GLUCOSE (AUTOMATED) 2021-10-14 Lul Cisneros Univers ity of 12:40:00 [facility] PHOSPHORUS 2021-10-14 Diego Gonzalez [facility] of 09:29:00 [facility] URIC ACID 2021-10-14 Diego Gonzalez [facility] of 09:29:00 [facility] MAGNESIUM 2021-10-14 Diego Gonzalez [facility] of 09:29:00 [facility] COMP. METABOLIC PANEL ([id number]) 2021-10-14 Diego Gonzalez [facility] of 09:29:00 [facility] CBC WITH DIFF 2021-10-14 Diego Gonzalez [facility] of 09:29:00 [facility] PHOSPHORUS 2021-10-14 Diego Gonzalez [facility] of 09:29:00 [facility] URIC ACID 2021-10-14 Diego Gonzalez [facility] of 09:29:00 [facility] MAGNESIUM 2021-10-14 Diego Gonzalez [facility] of 09:29:00 [facility] COMP. METABOLIC PANEL ([id number]) 2021-10-14 Diego Gonzalez [facility] of 09:29:00 [facility] CBC WITH DIFF 2021-10-14 Diego Gonzalez [facility] of 09:29:00 [facility] POCT GLUCOSE (AUTOMATED) 2021-10-14 Lul Cisneros Univers ity of 01:35:00 [facility] POCT GLUCOSE (AUTOMATED) 2021-10-14 Lul Cisneros Univers ity of 01:35:00 [facility] POCT GLUCOSE (AUTOMATED) 2021-10-13 Lul Cisneros Univers ity of 22:46:00 [facility] POCT GLUCOSE (AUTOMATED) 2021-10-13 Lul Cisneros Univers ity of 22:46:00 [facility] POCT GLUCOSE (AUTOMATED) 2021-10-13 Lul Cisneros Univers ity of 21:46:00 [facility] POCT GLUCOSE (AUTOMATED) 2021-10-13 Lul Cisneros Univers ity of 21:46:00 [facility] POCT GLUCOSE (AUTOMATED) 2021-10-13 Lul Cisneros Univers ity of 17:05:00 [facility] POCT GLUCOSE (AUTOMATED) 2021-10-13 Lul Cisneros Univers ity of 17:05:00 [facility] POCT GLUCOSE (AUTOMATED) 2021-10-13 Lul Cisneros Univers ity of 12:56:00 [facility] POCT GLUCOSE (AUTOMATED) 2021-10-13 Lul Cisneros Univers ity of 12:56:00 [facility] CBC WITH DIFF 2021-10-13 [facility] of 10:23:00 [facility] GLYCOSYLATED HEMOGLOBIN (A1C) 2021-10-13 Anaya Ventura Un iversity of 10:23:00 [facility] CBC WITH DIFF 2021-10-13 [facility] of 10:23:00 [facility] GLYCOSYLATED HEMOGLOBIN (A1C) 2021-10-13 Anaya Ventura iversity of 10:23:00 [facility] EXTERNAL PROVIDER RECORDS 2021-10-13 Doctor Univer sity of 05:01:00 Unassigned, No [facility] EXTERNAL PROVIDER RECORDS 2021-10-13 Doctor Univer sity of 05:01:00 Unassigned, No [facility] POCT GLUCOSE (AUTOMATED) 2021-10-13 Lul Cisneros Univers ity of 02:30:00 [facility] POCT GLUCOSE (AUTOMATED) 2021-10-13 Lul Cisneros Univers ity of 02:30:00 [facility] POCT GLUCOSE (AUTOMATED) 2021-10-12 Lul Cisneros Univers ity of 22:04:00 [facility] POCT GLUCOSE (AUTOMATED) 2021-10-12 Lul Cisneros Univers ity of 22:04:00 [facility] COVID-19 (MOLECULAR TESTING 2021-10-12 Lorenzo [facility] of NUCLEIC ACID AMPLIFICATION) 21:02:00 Nydia Kamron as [facility] LAB ONLY COVID INTERPRETATION 2021-10-12 Anaya Ventura Un iversity of 21:02:00 [facility] COVID-19 (MOLECULAR TESTING 2021-10-12 Lorenzo [facility] of NUCLEIC ACID AMPLIFICATION) 21:02:00 Nydia Kamron as [facility] LAB ONLY COVID INTERPRETATION 2021-10-12 Anaya Ventura Un iversity of 21:02:00 [facility] POCT GLUCOSE (AUTOMATED) 2021-10-12 Lul Cisneros Univers ity of 16:58:00 [facility] POCT GLUCOSE (AUTOMATED) 2021-10-12 Lul Cisneros Univers ity of 16:58:00 [facility] POCT GLUCOSE (AUTOMATED) 2021-10-12 Lul Cisneros Univers ity of 12:54:00 [facility] POCT GLUCOSE (AUTOMATED) 2021-10-12 Lul Cisneros Univers ity of 12:54:00 [facility] BASIC METABOLIC PANEL (NA, K, CL, 2021-10-12 [facility] of CO2, GLUCOSE, BUN, CREATININE, CA) 08:55:00 [facility] N-TERMINAL PRO-BNP 2021-10-12 [facility] of 08:55:00 [facility] BASIC METABOLIC PANEL (NA, K, CL, 2021-10-12 Beverly, [facility] of CO2, GLUCOSE, BUN, CREATININE, CA) 08:55:00 [facility] N-TERMINAL PRO-BNP 2021-10-12 [facility] of 08:55:00 Medical [facility] POCT GLUCOSE (AUTOMATED) 2021-10-12 Lul Cisneros [facility] it[facility] of 01:52:00 [facility] POCT GLUCOSE (AUTOMATED) 2021-10-12 Lul Cisneros [facility] of 01:52:00 [facility] POCT GLUCOSE (AUTOMATED) 2021-10-11 Lul Cisneros [facility] it[facility] of 21:53:00 [facility] POCT GLUCOSE (AUTOMATED) 2021-10-11 Lul Cisneros [facility] it[facility] of 21:53:00 [facility] POCT GLUCOSE (AUTOMATED) 2021-10-11 Lul Cisneros [facility] ity of 16:37:00 [facility] POCT GLUCOSE (AUTOMATED) 2021-10-11 Lul Cisneros [facility] ity of 16:37:00 [facility] POCT GLUCOSE (AUTOMATED) 2021-10-11 Lul Cisneros [facility] ity of 12:34:00 [facility] POCT GLUCOSE (AUTOMATED) 2021-10-11 Lul Cisneros [facility] ity of 12:34:00 [facility] BASIC METABOLIC PANEL (NA, K, CL, 2021-10-11 [facility] of CO2, GLUCOSE, BUN, CREATININE, CA) 09:05:00 [facility] BASIC METABOLIC PANEL (NA, K, CL, 2021-10-11 [facility] of CO2, GLUCOSE, BUN, CREATININE, CA) 09:05:00 [facility] POCT GLUCOSE (AUTOMATED) 2021-10-11 Rene, Wade Univers ity of 01:05:00 [facility] POCT GLUCOSE (AUTOMATED) 2021-10-11 [place], Wade Univers ity of 01:05:00 [facility] POCT GLUCOSE (AUTOMATED) 2021-10-10 [place], Wade Univers ity of 21:43:00 [facility] POCT GLUCOSE (AUTOMATED) 2021-10-10 [place], Wade Univers ity of 21:43:00 [facility] UREA NITROGEN, URINE RANDOM 2021-10-10 [facility] ersity of 17:38:00 [facility] UREA NITROGEN, URINE RANDOM 2021-10-10 [facility] ersity of 17:38:00 [facility] POCT GLUCOSE (AUTOMATED) 2021-10-10 eRne, Wade Univers ity of 16:47:00 [facility] POCT GLUCOSE (AUTOMATED) 2021-10-10 Rene, Wade Univers ity of 16:47:00 [facility] US RETROPERITONEAL COMPLETE 2021-10-10 Diego Gonzalez Uni versity of 15:00:00 [facility] US RETROPERITONEAL COMPLETE 2021-10-10 Diego Gonzalez Uni versity of 15:00:00 [facility] OSMOLALITY URINE 2021-10-10 Diego Gonzalez [facility] 13:39:00 [facility] URINALYSIS 2021-10-10 Diego Gonzalez [facility] 13:39:00 [facility] PROTEIN CREAT RATIO URINE RANDOM 2021-10-10 Diego Gonzalez [facility] 13:39:00 [facility] SODIUM, URINE RANDOM 2021-10-10 Diego Gonzalez [facility] 13:39:00 [facility] OSMOLALITY URINE 2021-10-10 Diego Gonzalez [facility] 13:39:00 [facility] URINALYSIS 2021-10-10 Diego Gonzalez [place] [address]:39:00 [facility] PROTEIN CREAT RATIO URINE RANDOM 2021-10-10 Diego Gonzalez [facility] 13:39:00 [facility] SODIUM, URINE RANDOM 2021-10-10 Diego Gonzalez [place] of 13:39:00 [facility] POCT GLUCOSE (AUTOMATED) 2021-10-10 [facility] it[facility] of 12:52:00 [facility] POCT GLUCOSE (AUTOMATED) 2021-10-10 [facility] it[facility] of 12:52:00 [facility] PHOSPHORUS 2021-10-10 Diego Gonzalez [facility] 08:16:00 [facility] URIC ACID 2021-10-10 Diego Gonzalez [facility] 08:16:00 [facility] MAGNESIUM 2021-10-10 Diego Gonzalez [facility] 08:16:00 [facility] OSMOLALITY, SERUM OR PLASMA 2021-10-10 Diego Gonzalez Uni versity of 08:16:00 [facility] COMP. METABOLIC PANEL ([id number]) 2021-10-10 Diego Gonzalez U niversity of 08:16:00 [facility] CBC WITH DIFF 2021-10-10 Diego Gonzalez [facility] 08:16:00 [facility] PHOSPHORUS 2021-10-10 Diego Gonzalez [facility] 08:16:00 [facility] URIC ACID 2021-10-10 Diego Gonzalez [facility] 08:16:00 [facility] MAGNESIUM 2021-10-10 Diego Gonzalez [facility] 08:16:00 [facility] OSMOLALITY, SERUM OR PLASMA 2021-10-10 Diego Gonzalez Uni versity of 08:16:00 [facility] COMP. METABOLIC PANEL ([id number]) 2021-10-10 Diego Gonzalez U niversity of 08:16:00 [facility] CBC WITH DIFF 2021-10-10 Diego Gonzalez [place] of 08:16:00 [facility] POCT GLUCOSE (AUTOMATED) 2021-10-10 Wade López [facility] ity of 01:36:00 [facility] POCT GLUCOSE (AUTOMATED) 2021-10-10 [place], Wade Univers ity of 01:36:00 [facility] POCT GLUCOSE (AUTOMATED) 2021-10-09 [place], Wade Univers ity of 21:26:00 [facility] POCT GLUCOSE (AUTOMATED) 2021-10-09 [place], Wade Univers ity of 21:26:00 [facility] POCT GLUCOSE (AUTOMATED) 2021-10-09 [place], Wade Univers ity of 16:26:00 [facility] POCT GLUCOSE (AUTOMATED) 2021-10-09 [place], Wade Univers ity of 16:26:00 [facility] POCT GLUCOSE (AUTOMATED) 2021-10-09 [place], Wade [facility] ity of 12:34:00 [facility] POCT GLUCOSE (AUTOMATED) 2021-10-09 [place], Wade Univers ity of 12:34:00 [facility] BASIC METABOLIC PANEL (NA, K, CL, 2021-10-09 [facility] of CO2, GLUCOSE, BUN, CREATININE, CA) 10:33:00 [facility] CBC WITH DIFF 2021-10-09 [facility] of 10:33:00 [facility] BASIC METABOLIC PANEL (NA, K, CL, 2021-10-09 [facility] of CO2, GLUCOSE, BUN, CREATININE, CA) 10:33:00 [facility] CBC WITH DIFF 2021-10-09 [facility] of 10:33:00 [facility] POCT GLUCOSE (AUTOMATED) 2021-10-09 Ovcodey, Wade Univers ity of 01:46:00 [facility] POCT GLUCOSE (AUTOMATED) 2021-10-09 [place], Wade Univers ity of 01:46:00 [facility] POCT GLUCOSE (AUTOMATED) 2021-10-08 [place], Wade Univers ity of 21:38:00 [facility] POCT GLUCOSE (AUTOMATED) 2021-10-08 [place], Wade Univers ity of 21:38:00 [facility] POCT GLUCOSE (AUTOMATED) 2021-10-08 Oville, Wdae Univers ity of 16:37:00 [facility] POCT GLUCOSE (AUTOMATED) 2021-10-08 Rene, Wade Univers ity of 16:37:00 [facility] POCT GLUCOSE (AUTOMATED) 2021-10-08 [place], Wade Univers ity of 12:43:00 [facility] POCT GLUCOSE (AUTOMATED) 2021-10-08 Ovcodey, Wade Univers ity of 12:43:00 [facility] CBC WITH DIFF 2021-10-[address] [facility] of 09:03:00 [facility] CBC WITH DIFF 2021-10-08 [facility] of 09:03:00 [facility] OCCULT (GUAIAC) BLOOD 2021-10-08 [facility] of 03:21:00 [facility] OCCULT (GUAIAC) BLOOD 2021-10-08 Alvin [facility] of 03:21:00 [facility] POCT GLUCOSE (AUTOMATED) 2021-10-08 Rene Wade [facility] ity of 02:19:00 [facility] POCT GLUCOSE (AUTOMATED) 2021-10-08 Rene, Wade Univers ity of 02:19:00 [facility] POCT GLUCOSE (AUTOMATED) 2021-10-07 [place], Wade Univers ity of 21:48:00 [facility] POCT GLUCOSE (AUTOMATED) 2021-10-07 [place], Wade Univers ity of 21:48:00 [facility] POCT GLUCOSE (AUTOMATED) 2021-10-07 [place], Wade Univers ity of 16:44:00 [facility] POCT GLUCOSE (AUTOMATED) 2021-10-07 [place], Wade Univers ity of 16:44:00 [facility] POCT GLUCOSE (AUTOMATED) 2021-10-07 [place], Wade [facility] ity of 12:42:00 [facility] POCT GLUCOSE (AUTOMATED) 2021-10-07 [place], Wade [facility] ity of 12:42:00 [facility] BASIC METABOLIC PANEL (NA, K, CL, 2021-10-07 Anatoly [facility] [employer] of CO2, GLUCOSE, BUN, CREATININE, CA) 09:02:00 [facility] CBC WITH DIFF 2021-10-[address] [facility] HospitalFam[facility]andezUP[facility] of 09:02:00 [facility] BASIC METABOLIC PANEL (NA, K, CL, 2021-10-07 Anatoly Temple harika [place] of CO2, GLUCOSE, BUN, CREATININE, CA) 09:02:00 [facility] CBC WITH DIFF 2021-10-07 Henrique Temple [place] of 09:02:00 [facility] POCT GLUCOSE (AUTOMATED) 2021-10-07 [place], Wade Univers ity of 01:25:00 [facility] POCT GLUCOSE (AUTOMATED) 2021-10-07 [place], Wade [facility] ity of 01:25:00 [facility] POCT GLUCOSE (AUTOMATED) 2021-10-06 [place], Wade Univers ity of 21:54:00 [facility] POCT GLUCOSE (AUTOMATED) 2021-10-06 Ovcodey, Wade Univers ity of 21:54:00 [facility] TRANSFUSE PACKED RBC 2021-10-06 Lul Cisneros [place] of 18:32:00 [facility] TRANSFUSE PACKED RBC 2021-10-06 GilbertLul [place] of 18:32:00 [facility] PREPARE PACKED RBC 2021-10-06 Alvin [facility] of 18:19:33 [facility] PREPARE PACKED RBC 2021-10-06 AlvinLul [place] of 18:19:33 [facility] POCT GLUCOSE (AUTOMATED) 2021-10-06 Rene, Wade Univers ity of 16:36:00 [facility] POCT GLUCOSE (AUTOMATED) 2021-10-06 Ovcodey, Wade Univers ity of 16:36:00 [facility] POCT GLUCOSE (AUTOMATED) 2021-10-06 Ovcodey, Wade Univers ity of 12:35:00 [facility] POCT GLUCOSE (AUTOMATED) 2021-10-06 [place], Wade Univers ity of 12:35:00 [facility] BASIC METABOLIC PANEL (NA, K, CL, 2021-10-06 Wade López of CO2, GLUCOSE, BUN, CREATININE, CA) 08:46:00 [facility] CBC WITHOUT DIFF 2021-10-06 Wade López of 08:46:00 [facility] GLYCOSYLATED HEMOGLOBIN (A1C) 2021-10-06 Henrique Tmeple [place] of 08:46:00 [facility] BASIC METABOLIC PANEL (NA, K, CL, 2021-10-06 [facility] of CO2, GLUCOSE, BUN, CREATININE, CA) 08:46:00 [facility] CBC WITHOUT DIFF 2021-10-06 [facility] of 08:46:00 [facility] GLYCOSYLATED HEMOGLOBIN (A1C) 2021-10-06 [facility] of 08:46:00 [facility] POCT GLUCOSE (AUTOMATED) 2021-10-06 [facility] ity of 01:31:00 [facility] POCT GLUCOSE (AUTOMATED) 2021-10-06 [facility] ity of 01:31:00 [facility] POCT GLUCOSE (AUTOMATED) 2021-10-05 [facility], [facility] ity of 21:50:00 [facility] POCT GLUCOSE (AUTOMATED) 2021-10-05 [facility], [facility] ity of 21:50:00 [facility] COMP. METABOLIC PANEL ([id number]) 2021-10-05 Ulises Ambrose iversity of 17:21:00 [facility] COMP. METABOLIC PANEL ([id number]) 2021-10-05 Ulises Ambrose iversity of 17:21:00 [facility] COVID-19 (ID NOW RAPID TESTING) 2021-10-05 [facility] of 16:36:00 [facility] LAB ONLY COVID INTERPRETATION 2021-10-05 Ulises Ambrose iversity of 16:36:00 [facility] COVID-19 (ID NOW RAPID TESTING) 2021-10-05 [facility] of 16:36:00 [facility] LAB ONLY COVID INTERPRETATION 2021-10-05 Ulises Ambrose iversity of 16:36:00 [facility] TRANSFUSE PACKED RBC 2021-10-05 [facility] of 16:30:00 [facility] TRANSFUSE PACKED RBC 2021-10-05 [facility] of 16:30:00 [facility] PREPARE PACKED RBC 2021-10-05 [facility] of 16:16:38 [facility] PREPARE PACKED RBC 2021-10-05 [facility] of 16:16:38 [facility] CBC WITHOUT DIFF 2021-10-05 [facility] of 15:08:00 [facility] CBC WITHOUT DIFF 2021-10-05 [facility] of 15:08:00 [facility] HB ABO GROUPING 2021-10-05 [facility] of 15:00:00 [facility] HB ABO GROUPING 2021-10-05 [facility] of 15:00:00 [facility] CONSENT/REFUSAL FOR DIAGNOSIS AND 2021-10-05 [facility] TREATMENT 14:18:46 Unassigned, No [facility] CONSENT/REFUSAL FOR DIAGNOSIS AND 2021-10-05 [facility] 14:18:46 Unassigned, No [facility] EXTERNAL PROVIDER RECORDS 2021-10-05 [facility] sity of 05:01:00 Unassigned, No [facility] HOSPITAL ADMISSION 2021-10-05 [facility] of 05:01:00 Unassigned, No [facility] EXTERNAL PROVIDER RECORDS 2021-10-05 [facility] sity of 05:01:00 Unassigned, No [facility] HOSPITAL ADMISSION 2021-10-05 [facility] of 05:01:00 Unassigned, No [facility] Encounters Start End Encounter Admission Attending Care Care Encounter Source Date/Time Date/Time Type Type Clinicians Facility Department ID 2021-04-19 [id number] Univers 09:25:00 ROYCE [facility] 2021-01-17 [facility] [id number] Univers 07:35:14 YOHAN [facility] 2021-01-[address] [facility] [id number] Univers 21:45:10 ity [facility] 2021-01-[address] [facility] [id number] Univers 21:[facility]12[facility] In[address] [facility] [id number] Univers 15:11:46 YOHAN [facility] 2022-04-10 2022-04-10 Outpatient R [facility] [id number] Univers 13:00:00 13:00:00 ity [facility] 2022-03-16 2022-03-16 Outpatient R RADU [facility] [id number] Univers 13:00:00 13:00:00 JOSEPH ity of [facility] 2022-03-16 2022-03-16 Telephone BurnsEVETTE delgado 1.2.840.114 [id number] Univers 00:00:00 00:00:00 Nekita H [id number] it y of BUILDING 4.2.7.2.686 [place] as [id number] [facility] [address] [place] 2022-03-16 2022-03-16 Telephone Burns EVETTE 1.2.840.114 [id number] Univers 00:00:00 00:00:00 Nekita H [id number] it y of [place] 4.2.7.2.686 [place] [phone] [address] 2022-03-14 2022-03-14 Outpatient R RADU [facility] [id number] Univers 10:00:00 15:56:50 JOSEPH ity [facility] 2022-03-14 2022-03-14 Nurse 9, [facility] Infusion Chair UNIVERSIT 1. 2.840.114 [id number] Univers 10:00:00 15:00:00 Visit Joseph Lovelace [facility] [id number] ity of [place] [id number] [facility] [address] 2022-03-14 2022-03-14 Patient Bushra Iraheta 1.2.840.114 [id number] Univers 00:00:00 00:00:00 Outreach E HILL 350.1.13.10 i ty [place] [id number] [facility] [address] 2022-03-14 2022-03-14 Case EVETTE Burns [id number] Univers 00:00:00 00:00:00 Management Nekita H 350.1.13.10 ity of BUILDING 4.2.7.2.686 [place] [id number] [facility] [address] [place] 2022-03-14 2022-03-14 Case EVETTE Lovelace 1.2.840.114 [id number] Univers 00:00:00 00:00:00 Management Joseph H 350.1.13.10 ity of [place] 4.2.7.2.686 [place] [id number] [address] 2022-03-13 2022-03-13 Outpatient R RADU [facility] [id number] Univers 15:00:00 16:51:06 JOSEPH ity of [facility] 2022-03-13 2022-03-13 Office Elda Burns 1.2.840.11 [id number] Univers 15:00:00 16:51:06 Visit Joseph Lovelace H 350.1.13.10 ity of [place] 4.2.7.2.686 [place] [phone] [address] 2022-03-13 2022-03-13 Patient Bushra Iraheta SONYA 1.2.840.114 [id number] Univers 00:00:00 00:00:00 Outreach E [place] 350.1.13.10 i [place] [id number] [facility] [address] 2022-03-13 2022-03-13 Patient EVETTE Luna 1.2.840.114 [id number] Univers 00:00:00 00:00:00 Outreach Cherkathy Elizondo H 350.1.13.10 ity of [place] 4.2.7.2.686 [place] [id number] [address] 2022-03-10 2022-03-10 Case EVETTE Burns [id number] Univers 00:00:00 00:00:00 Management Elda H 350.1.13.10 ity of [place] 4.2.7.2.686 [place] [id number] [address] 2022-03-09 2022-03-09 Patient Bushra Iraheta 1.2.840.114 [id number] Univers 00:00:00 00:00:00 Outreach E [place] 350.1.13.10 i [place] [id number] [place] [address] [address] 2022-03-07 2022-03-07 Patient Bushra Iraheta 1.2.840.114 [id number] Univers 00:00:00 00:00:00 Outreach E [place] 350.1.13.10 i [place] [id number] [facility] [address] 2022-02-20 2022-02-20 Patient SONYA Alberts 1.2.840.114 [id number] Univers 00:00:00 00:00:00 Outreach Estefanía E [place] 350.1.13.10 i [place] [id number] [facility] [address] 2022-02-20 2022-02-20 Orders Doctor DOMINGO 1.2.840.114 [id number] Univers 00:00:00 00:00:00 Only Unassigned, ELIAS 350.1.13.10 ity of [place] [facility] 4.2.7.2.686 [place] as [id number] [facility] [address] 2022-02-14 2022-02-14 Telephone EVETTE Burns 1.2.840.114 [id number] Univers 00:00:00 00:00:00 Elda Mcnally 350.1.13.10 it y of [place] 4.2.7.2.686 [place] [id number] [facility] [address] 2022-02-08 2022-02-08 Orders Doctor DOMINGO 1.2.840.114 [id number] Univers 00:00:00 00:00:00 Only Unassigned, ELIAS 350.1.13.10 ity of [place] [facility] 4.2.7.2.686 [place] as [phone] [facility] [address] 2022-02-06 2022-02-06 Police Detective [facility] UNIVERSIT 1.2.840.114 [id number] Univers 16:45:00 17:00:00 Visit Joseph Lovelace [facility] 350.1.13.10 ity [place] [id number] [facility] [address] 2022-02-06 2022-02-06 [facility] [id number] Univers 16:45:00 16:45:00 JOSEPH king [facility] 2022-02-06 2022-02-06 Outpatient R RADU [facility] [id number] Univers 14:00:00 16:16:22 JOSEPH king [facility] 2022-02-06 2022-02-06 Office Elda BurnsBRIGETTEANATOLYI 1.2.840.11 [id number] Univers 14:00:00 16:16:22 Visit Joseph Lovelace 350.1.13.10 ity of BUILDING 4.2.7.2.686 [place] [id number] [place] [address] [place] 2022-01-25 2022-01-25 [facility] [id number] Univers 00:00:00 00:00:00 Gino HEALTH 350.1.13.10 it y of [place] 4.2.7.2.686 [place] as YA?BLEA [id number] [address] MEDICAL OFFICE [facility] 2022-01-25 2022-01-25 Refill [facility] 1.2.840.114 [id number] Univers 00:00:00 00:00:00 Gino HEALTH 350.1.13.10 it y of [place] 4.2.7.2.686 [place] YA?BLEA [id number] [address] MEDICAL OFFICE [facility] 2022-01-20 2022-01-20 Patient Bushra Iraheta 1.2.840.114 [id number] Univers 00:00:00 00:00:00 Outreach E [place] 350.1.13.10 [place] [id number] [address] 2022-01-16 2022-01-16 Patient Bushra Iraheta 1.2.840.114 [id number] Univers 12:00:00 13:00:00 Outreach E [place] 350.1.13.10 i [place] [id number] [address] 2022-01-16 2022-01-16 Orders Doctor DOMINGO 1.2.840.114 [id number] Univers 00:00:00 00:00:00 Only Unassigned, ELIAS 350.1.13.10 ity of [place] [facility] 4.2.7.2.686 [place] [id number] [facility] [address] 2022-01-16 2022-01-16 Case SONYA Goldberg 1.2.840.114 [id number] Univers 00:00:00 00:00:00 Management Radha GAYY 350.1.13.10 [place] [id number] [facility] [address] [place] 2022-01-13 2022-01-13 Patient Yulia [facility] 1.2.840.114 [id number] Univers 00:00:00 00:00:00 Outreach Jania Maya HEALTH 350.1.13.10 ity of [place] 4.2.7.2.686 [place] YA?BLEA [id number] [address] MEDICAL OFFICE [facility] 2022-01-12 2022-01-12 [facility] [id number] Univers 14:30:00 15:17:57 GINO ity of [facility] 2022-01-12 2022-01-12 Office Keerthi [facility] 1.2.840.114 [id number] Univers 14:30:00 15:17:57 Visit Gino [facility] 350.1.13.10 it y of [place] 4.2.7.2.686 [place] YA?BLEA [id number] [address] MEDICAL OFFICE BUILDING 2022-01-05 2022-01-05 Transition SONYA Cook 1.2.840.114 [id number] Univers 00:00:00 00:00:00 of Care Aleisha GAYY 350.1.13.10 [place] [id number] [facility] [address] [place] 2022-01-05 2022-01-05 Transition SONYA Cook 1.2.840.114 [id number] Univers 00:00:00 00:00:00 of Care Aleisha [place] 350.1.13.10 [place] [id number] [facility] [address] 2021-12-29 2022-01-04 Inpatient U NHUNG [facility] MELO [id number] Univers 10:28:00 17:52:00 GAIL king of [facility] 2021-12-29 2022-01-04 Hospital Janna Cruz 1.2.840.11 [id number] Univers 10:28:00 17:52:00 Encounter NhungGail ELIAS 350.1.13.10 ity of [place] [facility] 4.2.7.2.68 [place] [id number] [facility] [address] 2021-12-27 2021-12-27 Orders Doctor DOMINGO 1.2.840.114 [id number] Univers 00:00:00 00:00:00 Only Unassigned, ELIAS 350.1.13.10 ity of [place] [facility] 4.2.7.2.686 [place] [id number] [facility] [address] 2021-12-23 2021-12-23 Transition SONYA Cook 1.2.840.114 [id number] Univers 00:00:00 00:00:00 of Care Aleisha [place] 350.1.13.10 [place] [id number] [facility] [address] 2021-12-01 2021-12-22 Inpatient X YAMILA [facility] SANTANA [id number] Univers 22:18:00 17:15:00 DOMINGO king of [facility] 2021-12-01 2021-12-22 Hospital Donna Mora 1.2.840. 114 [id number] Univers 22:18:00 17:15:00 Encounter Hao Davenport 350.1.13.10 ity of [place] [facility] 4.2.7.2.68 6 [place] Domingo Driscoll [phone] [facility] [address] 2021-12-22 2021-12-22 Telephone SONYA Goldberg 1.2.840.114 [id number] Univers 00:00:00 00:00:00 Radha HILL 350.1.13.10 i [place] [phone] [facility] 086 Branch 2021-12-12 2021-12-12 Anesthesia GutierrezSamuel garciaNIE 1.2.840 .114 [id number] Univers 07:20:00 16:14:00 Event Negin JacoboY 350.1.13.10 ity [facility] 4.2.7.2.686 Kam[place] as [phone] [facility] 103 Branch 2021-12-12 2021-12-12 Surgery EDENILSON Driscoll 1.2.840.114 [id number] Univers 07:00:00 11:48:00 Domingo OCONNORY 350.1.13.10 it y of [facility] 4.2.7.2.686 [place] as [phone] [facility] 103 Branch 2021-12-07 2021-12-07 Multidisci ANJELICA Driscoll 1.2.840.114 9 [id number] Univers 00:00:00 00:00:00 plinary Critical access hospital 350.1.13.10 i ty of [facility] 4.2.7.2.686 [place] [phone] [facility] 188 Branch 2021-12-05 2021-12-05 Surgery Alecia [facility] 1.2.884.046 4137 0544 Univers 13:59:00 15:00:00 Job ICAL 350.1.13.10 it y of [place]ENC[place] 4.2.7.2.686 [place] as BLDG [phone] [facility] 020 Branch 2021-12-02 2021-12-02 Surgery Kody-Robi [facility] 1.2.840.114 97 [id number] Univers 16:21:00 17:00:00 Yamam ICAL 350.1.13.10 it y of [place] 4.2.7.2.686 [place] as BLDG [phone] [facility] 020 Branch 2021-12-01 2021-12-01 Telephone Keerthi [facility] 1.2.989.368 5964 6705 Univers 00:00:00 00:00:00 Gino HEALTH 350.1.13.10 it y of [place] 4.2.7.2.686 Kamron as YA?BLEA [phone] Ga dical GISEL [address] [place] MEDICAL OFFICE BUILDING 2021-12-01 2021-12-01 Brendan Pendleton [facility] 1.2.251.742 7944 7838 Univers 00:00:00 00:00:00 Gino HEALTH 350.1.13.10 it y of [facility] 4.2.7.2.686 [place] as YA?BLEA [phone] Ga dical GISEL 044 [facility] OFFICE [facility] 2021-11-28 2021-11-28 Refill Vish [facility] 1.2.525.646 5005 6212 Univers 00:00:00 00:00:00 Keyur Mcnally HEALTH 350.1.13.10 it y of [facility] 4.2.7.2.686 [place] YA?BLEA [phone] Ga dickody BATRES [address] [place] MEDICAL OFFICE [facility] 2021-11-28 2021-11-28 Refill Yifan [facility] 1.2.840.114 [id number] Univers 00:00:00 00:00:00 Nirav VILLALBA 350.1.13.10 i ty of [place] PROF[place] [phone] Ga dickody [facility] 204 [facility] 2021-11-28 2021-11-28 Refill Hannah Romero [facility] 1.2.840.114 96 [id number] Univers 00:00:00 00:00:00 SPECIALTY 350.1.13.10 ity of [place] 4.2.7.2.[place] [phone] [facility] [address] [place] 2021-11-21 2021-11-21 Orders Doctor DOMINGO 1.2.840.114 [id number] Univers 00:00:00 00:00:00 Only Unassigned, ELIAS 350.1.13.10 ity of [facility] 4.2.7.2.686 [place] as [phone] [facility] 009 Branch 2021-11-17 2021-11-17 [facility] [id number] Univers 14:30:00 14:30:00 GINO king [facility] 2021-11-09 2021-11-09 Patient Bushra Iraheta SONYA 1.2.840.114 [id number] Univers 00:00:00 00:00:00 Outreach E HILL 350.1.13.10 [place] [phone] [address] 2021-11-08 2021-11-08 [facility] [id number] Univers 09:00:00 09:00:00 LASHAE king [facility] 2021-11-01 2021-11-01 Patient Bushra Iraheta SONYA 1.2.840.114 96 [id number] Univers 00:00:00 00:00:00 Outreach E HILL 350.1.13.10 [place] [phone] [address] 2021-10-27 2021-10-27 Transition SONYA Cook 1.2.840.114 961 [id number] Univers 00:00:00 00:00:00 of Care Aleisha HILL 350.1.13.10 [place] [phone] [address] 2021-10-05 2021-10-26 Inpatient U [facility] [id number] Univers 09:39:00 17:18:00 SAHARA king [facility] 2021-10-05 2021-10-26 Hospital Ulises Ambrose 1.2.840.1 14 [id number] Univers 09:39:00 17:18:00 Encounter Wade López 350.1.13.10 ity of [facility] 4.2.7.2.686 Gail Thompson [phone] [facility] Sahara Wood [address] [place] Victor Manuel Hansen 2021-10-21 2021-10-21 Patient Bushra Iraheta SONYA 1.2.840.114 95 [id number] Univers 00:00:00 00:00:00 Outreach E HILL 350.1.13.10 [place] [phone] [facility] 403 [address] 2021-10-20 2021-10-20 Surgery Isma Joyner [facility] 1.2.840.114 95 [id number] Univers 15:07:00 15:50:00 Jani ICAL 350.1.13.10 it y of [place] 4.2.7.2.686 [place] as BLDG [phone] [facility] 020 Branch 2021-10-18 2021-10-18 Outpatient R LAYNE [facility] [id number] Univers 15:00:00 15:00:00 SENDIL itstuart [facility] 2021-10-13 2021-10-13 Patient Bushra IrahetaLizandro 1.2.840.114 95 [id number] Univers 00:00:00 00:00:00 Outreach E HILL 350.1.13.10 [place] [phone] [address] 2021-10-12 2021-10-12 Transition Cook SONYA 1.2.840.114 957 [id number] Univers 00:00:00 00:00:00 of Care Aleisha HILL 350.1.13.10 [place] [phone] [facility] [address] [place] 2021-10-11 2021-10-11 Patient Bushra Iraheta SONYA 1.2.840.114 95 [id number] Univers 00:00:00 00:00:00 Outreach E HILL 350.1.13.10 [place] [phone] [address] 2021-10-04 2021-10-04 Outpatient R PAL [facility] [id number] Univers 14:00:00 14:36:55 LASHAE king [facility] 2021-10-04 2021-10-04 Office Pal [facility] 1.2.692.352 1228 [id number] Univers 14:00:00 14:36:55 Visit Lashae MULTISPEC 350.1.13.10 ity of [place] [phone] [address] [facility] 2021-10-04 2021-10-04 Outpatient R PAL [facility] [id number] Univers 14:00:00 14:36:55 LASHAE ity [facility] 2021-10-04 2021-10-04 Outpatient R PAL [facility] [id number] Univers 14:00:00 14:00:00 LASHAE ity [facility] 2021-09-30 2021-09-30 Outpatient R KEERTHI [facility] [id number] Univers 08:30:00 09:03:17 GINO yeyostuart [facility] 2021-09-30 2021-09-30 Police Detective Lab, Ang - Harsh [facility] 1.2.840.1 14 [id number] Univers 08:30:00 08:45:00 Visit Gino Pendleton HEALTH 350.1.13.10 ity of [place] 4.2.7.2.686 Kamron as YA?BLEA [phone] Ga william BATRES [address] [place] MEDICAL OFFICE BUILDING 2021-09-30 2021-09-30 Telephone Pal [facility] 1.2.840.114 [id number] Univers 00:00:00 00:00:00 Lashaedelia RUBYPEC 350.1.13.10 ity [place] C[place] [phone] [address] [facility]ES [facility]INIC 2021-09-28 2021-09-28 Telephone Keerthi WVANAIS 1.2.269.453 1270 6303 Univers 00:00:00 00:00:00 Gino HEALTH 350.1.13.10 it y of [place] 4.2.7.2.686 Kamron as YA?BLEA [phone] Ga william SOLO [address] [place] MEDICAL OFFICE BUILDING 2021-09-28 2021-09-28 Refill Keerthi [facility] 1.2.840.114 [id number] Univers 00:00:00 00:00:00 Gino HEALTH 350.1.13.10 it y of [place] 4.2.7.2.686 Kamron as YA?BLEA [phone] [address] MEDICAL OFFICE BUILDING 2021-09-27 2021-09-27 Outpatient R FRANCIS [facility] [id number] Univers 09:00:00 09:00:00 YOHAN king [facility] 2021-09-27 2021-09-27 Telephone Pal [facility] 1.2.840.114 [id number] Univers 00:00:00 00:00:00 Lashae MULTISPEC 350.1.13.10 ity of [place] [id number] [facility] AND [address] [facility] 2021-09-09 2021-09-09 Outpatient R VISH [facility] [id number] Univers 10:00:00 10:00:00 KEYUR king [facility] 2021-07-28 2021-07-28 Orders Doctor DOMINGO 1..840.114 [id number] Univers 00:00:00 00:00:00 Only Unassigned, ELIAS 350.1.13.10 ity of [facility] 4.2.7.2.686 [place] as [phone] [address] 2021-07-21 2021-07-21 Telephone Keerthi [facility] 1.2.745.104 [id number] 5820 Univers 00:00:00 00:00:00 Gino HEALTH 350.1.13.10 it y of [place] 4.2.7.2.686 Kamron as YA?BLEA [phone] Ga william [address] MEDICAL OFFICE [facility] 2021-07-14 2021-07-14 Outpatient R KEERTHI [facility] [id number] Univers 14:30:00 15:48:32 GINO king [facility] 2021-07-14 2021-07-14 Office [facility] 1.2.840.114 [id number] Univers 14:30:00 15:48:32 Visit Gino HEALTH 350.1.13.10 it y [facility] 4.2.7.2.686 [place] as YA?BLEA [phone] [address] MEDICAL OFFICE BUILDING 2021-07-14 2021-07-14 Outpatient R KEERTHI, [facility] [id number] Univers 14:30:00 15:48:32 GINO king [facility] 2021-07-13 2021-07-13 Orders Doctor DOMINGO 1.2.840.114 [id number] Univers 00:00:00 00:00:00 Only Unassigned, ELIAS 350.1.13.10 ity of [facility] H[facility] 4.2.7.2.686 [place] as [phone] [address] 2021-06-01 2021-06-01 Orders Doctor DOMINGO 1.2.840.114 [id number] Univers 00:00:00 00:00:00 Only Unassigned, ELIAS 350.1.13.10 ity of [facility] [facility] 4.2.7.2.686 [place] as [phone] [address] 2021-05-09 2021-05-09 Transition SONYA Alexander 1.2.840.114 [id number] [id number] Univers 00:00:00 00:00:00 of Care Kelly HILL 350.1.13.10 [place] [phone] [facility] [address] [place] 2021-05-02 2021-05-07 Inpatient [facility] [id number] Univers 09:03:00 19:10:00 KRISTA king [facility] 2021-05-02 2021-05-07 Hospital Donna Mora 1.2.840. 114 [id number] Univers 09:03:00 19:10:00 Encounter Pavel Nicole 350.1.13.10 ity of [facility] 4.2.7.2.686 [facility] pitt [phone] [place] [address] 2021-05-02 2021-05-02 Surgery [facility] 1.2.840.114 [id number] [id number] Univers 14:20:00 14:58:00 Chinyere ICAL 350.1.13.10 it y of [place] 4.2.7.2.686 [place] as BLDG [phone] [facility] 020 Branch 2021-05-02 2021-05-02 Transition CookTERESA velascoLizandro 1.2.840.114 [id number] [id number] Univers 00:00:00 00:00:00 of Care Aleisha HILL 350.1.13.10 [place] [phone] [facility] 403 Branch 2021-04-19 2021-04-30 Hospital Shreya Aguilar 1.2.84 0.114 [id number] Univers 09:25:00 16:30:00 Encounter Cristiane Douglasslizandro ELIAS 350.1.13.10 ity of [facility] 4.2.7.2.686 [place] Sathish Kerns [phone] 1 [facility] [address] [place] Royce Gilmore 2021-04-19 2021-04-30 Inpatient DE[facility]REMCLAREN [facility] [id number] Univers 09:25:00 16:30:00 ROYCE ity of [facility] 2021-04-25 2021-04-25 Anesthesia Gloria Rice 1.2.840.1 [id number] Univers 15:10:00 16:18:00 Event Cindy Cantu 74341.1.1 ity of 3.104.2.7 [place] .3.463183 Medica l .8 Branch 2021-04-25 2021-04-25 Surgery Merarnoldo, 1.2.840.7 [id number] 093 Univers 14:35:00 15:11:00 Patricio 28543.1.1 ity of [place] 3.104.2.7 [place] .3.248843 Medica l .8 Branch 2021-04-25 2021-04-25 Orders Kwame, 1.2.840.1 [id number] Univers 00:00:00 00:00:00 Only Naeem Badillo 23784.1.1 ity of 3.104.2.7 [place] .3.587536 Medica l .8 Branch 2021-04-19 2021-04-19 [facility] [id number] Univers 09:25:00 09:25:00 ROYCE ity of [facility] 2021-04-19 2021-04-19 Travel 1.2.840.1 1.2.647.145 0212 4334 Univers 00:00:00 00:00:00 65077.1.1 350.1.13.10 ity of 3.104.2.7 4.2.7.3.698 [place] .3.734279 084.8 Medica l .8 Branch 2021-04-06 2021-04-06 Transition Cook, 1.2.840.7 [id number] Univers 00:00:00 00:00:00 of Care Aleisha 70658.1.1 i ty of 3.104.2.7 [place] .3.110648 Medica l .[address] [place] 2021-04-04 2021-04-05 [facility] [id number] Univers 09:28:00 18:42:00 YOHAN itstuart of [facility] 2021-04-04 2021-04-05 Hospital [facility], 1.2.840.2 [id number] 895 [id number] Univers 09:28:00 18:42:00 Encounter Yohan 63279.1.1 it y of [place] 3.104.2.7 [place] .3.403103 Medica l .8 [place] 2021-04-04 2021-04-04 Surgery [facility], 1.2.840.5 [id number] 8462 Univers 11:21:00 16:17:00 Yohan 21346.1.1 ity of [place] 3.104.2.7 [place] .3.879688 Medica l .8 Branch 2021-04-04 2021-04-04 Anesthesia Rachel Ji 1.2.840.1 1007 [id number] Univers 10:51:00 16:10:00 Event Kelsey Robbins 39776.1.1 ity of 3.104.2.7 [place] .3.826938 Medica l .8 Branch 2021-04-01 2021-04-01 Laboratory Royce Hernández 1.2.840.6 [id number] Univers 12:00:00 12:15:00 Only Only, Adc Test 54292.1.1 ity of 3.104.2.7 [place] .3.060062 Medica l .8 [place] 2021-04-01 2021-04-01 Outpatient Dakotah HERNÁNDEZ, [facility] [id number] Univers 12:00:00 12:00:00 ROYCE ity of [facility] 2021-04-01 2021-04-01 Orders Doctor 1.2.840.0 [id number] Univers 00:00:00 00:00:00 Only Unassigned, 02020.1.1 ity of [facility] 3.104.2.7 [place] .3.181747 Medica l .8 [place] 2021-04-01 2021-04-01 Travel 1.2.840.1 1.2.822.712 8673 9521 Univers 00:00:00 00:00:00 38042.1.1 350.1.13.10 ity of 3.104.2.7 4.2.7.3.698 [place] .3.187645 084.8 Medica l .8 [place] 2021-03-30 2021-03-30 Travel 1.2.840.1 1.2.055.235 9801 4932 Univers 00:00:00 00:00:00 95429.1.1 350.1.13.10 ity of 3.104.2.7 4.2.7.3.698 [place] .3.553589 084.8 Medica l .8 [place] 2021-03-25 2021-03-25 RefHannah Nielsen 1.2.840.4 [id number] Univers 00:00:00 00:00:00 18720.1.1 ity of 3.104.2.7 [place] .3.439232 Medica l .8 [place] 2021-03-17 2021-03-17 Outpatient Dakotah FULLER [facility] [id number] Univers 00:00:00 00:00:00 YOHAN ity of [facility] 2021-02-09 2021-02-09 Prep For Ulices, 1.2.840.2 [id number] [id number] Univers 00:00:00 00:00:00 Surgery Tamer Jesus 86338.1.1 ity of 3.104.2.7 [place] .3.081997 Medica l .8 Branch 2021-02-08 2021-02-08 Telephone Keerthi, 1.2.840.0 [id number] [id number] Univers 00:00:00 00:00:00 Gino 59344.1.1 ity of 3.104.2.7 [place] .3.849728 Medica l .8 [place] 2021-01-26 2021-01-26 Outpatient R PAL [facility] [id number] Univers 14:00:00 14:00:00 LASHAE ity [facility] 2021-01-26 2021-01-26 [facility] [id number] Univers 14:00:00 14:00:00 LASHAE ity [facility] 2021-01-26 2021-01-26 Outpatient R [facility] [id number] Univers 14:00:00 14:00:00 AUSTIN ity [facility] 2021-01-20 2021-01-20 Hannah Chaney [facility] 1.2.840.114 [id number] Univers 00:00:00 00:00:00 SPECIALTY 350.1.13.10 ity of [place] 4.2.7.2.686 [place] [phone] [address] 2021-01-09 2021-01-10 Outpatient X ALINA [facility] SUU [id number] Univers 12:13:00 19:30:00 YOHAN king [facility] 2021-01-09 2021-01-10 Emergency Yohan Tee 1.2.840.1 [id number] Univers 12:13:00 19:30:00 Yohan Fuller 42351.1.1 ity of 3.104.2.7 [place] .3.200162 Medica l .8 [place] 2021-01-09 2021-01-09 Emergency X LEANDRO [facility] ERT [id number] Univers 08:31:00 11:06:00 RADHA ity of [facility] 2021-01-09 2021-01-09 Emergency [facility] ERT [id number] Univers 08:31:00 11:06:00 RADHA ity of [facility] 2021-01-09 2021-01-09 Emergency [facility] 1.2.580.805 [id number] 9832 Univers 08:31:00 11:06:00 Radha VILLALBA 350.1.13.10 i ty of [place] 4.2.7.2.686 [facility] [phone] [facility] nani [address] [place] 2021-01-09 2021-01-09 Emergency Leandro, 1.2.840.1 [id number] 06038 Univers 08:31:00 11:06:00 Radha 53286.1.1 ity of 3.104.2.7 [place] .3.207771 Medica l .8 [place] 2021-01-09 2021-01-09 Travel 1.2.840.1 1.2.295.060 8906 9879 Univers 00:00:00 00:00:00 31744.1.1 350.1.13.10 ity of 3.104.2.7 4.2.7.3.698 [place] .3.958064 084.8 Medica l .8 [place] 2021-01-07 2021-01-07 Telephone Tillman, 1.2.840.1 [id number] 887 [id number] Univers 00:00:00 00:00:00 Rian Garland 55353.1.1 ity of 3.104.2.7 [place] .3.605074 Medica l .8 [place] 2020-12-31 2020-12-31 Outpatient R VISH [facility] [id number] Univers 15:30:00 15:56:11 KEYUR ity of [facility] 2020-12-31 2020-12-31 Office Vish 1.2.840.2 [id number] 853 [id number] Univers 14:50:06 15:56:11 Visit Keyur Mcnally 46747.1.1 ity of 3.104.2.7 [place] .3.055158 Medica l .8 Branch 2020-12-31 2020-12-31 Travel 1.2.840.1 1.2.409.641 3529 3492 Univers 00:00:00 00:00:00 89172.1.1 350.1.13.10 ity of 3.104.2.7 4.2.7.3.698 [place] .3.975411 084.8 Medica l .8 Branch 2020-12-29 2020-12-29 Telephone Pal [facility] 1.2.840.114 [id number] Univers 00:00:00 00:00:00 Lashae MULTISPEC 350.1.13.10 ity of IAL[place] 4.2.7.2.686 [facility] s [place] [phone] [facility] AND [place] [address] [facility]ES CLIN[facility] 2020-12-29 2020-12-29 Telephone Pal 1.2.840.0 [id number] Univers 00:00:00 00:00:00 Lashea 69364.1.1 ity of 3.104.2.7 [place] .3.346184 Medica l .8 Branch 2020-12-16 2020-12-16 Office Care, Ang Primary BRAZORIA 1.2.840 .114 [id number] Univers 10:11:14 10:33:19 Visit Hannah Romero [facility] 350.1.13.10 ity of HEALTH 4.2.7.2.686 [facility] s [facility] [phone] [facility] [address] 2020-12-16 2020-12-16 Office Hannah Romero 1.2.840.3 [id number] Univers 10:11:14 10:33:19 Visit Care, Ang Primary 80078.1.1 ity of 3.104.2.7 [place] .3.549170 Medica l .8 Branch 2020-12-16 2020-12-16 Outpatient HANNAH CORTEZ [facility] [id number] Univers 10:00:00 10:00:00 ity of [facility] 2020-12-16 2020-12-16 Outpatient HANNAH CORTEZ [facility] [id number] Univers 10:00:00 10:00:00 ity of [facility] 2020-12-16 2020-12-16 Travel 1.2.840.1 1.2.846.883 9186 3723 Univers 00:00:00 00:00:00 64914.1.1 350.1.13.10 ity of 3.104.2.7 4.2.7.3.698 [place] .3.649323 084.8 Medica l .8 Branch 2020-12-09 2020-12-09 Office Srenaima, SHAIT 1.2.840.114 855 [id number] Univers 13:55:36 14:10:36 Visit [facility] 350.1.13.10 i ty of [facility] 4.2.7.2.686 [place] as [phone] [facility] [address] 2020-12-09 2020-12-09 Office Srechristianneta, 1.2.840.7 [id number] 8550 3112 Univers 13:55:36 14:10:36 Visit Yohan 83936.1.1 ity of [place] 3.104.2.7 [place] .3.756473 Medica l .8 [place] 2020-12-09 2020-12-09 Outpatient R ALINA [facility] [id number] Univers 14:00:00 14:00:00 YOHAN ity of [facility] 2020-12-09 2020-12-09 Travel 1.2.840.1 1.2.694.608 1173 6501 Univers 00:00:00 00:00:00 20727.1.1 350.1.13.10 ity of 3.104.2.7 4.2.7.3.698 [place] .3.077005 084.8 Medica l .8 Branch 2020-12-02 2020-12-02 Office Care, Naveed Montes [place] 1.2.840 .114 [id number] Univers 10:48:05 12:13:46 Visit Heather [facility] 350.1.13.10 ity of [place].2.[place] [phone] [facility] [address] 2020-12-022020-12-02 Office Hannah Romero 1.2.840.1 [id number] Univers 10:48:05 12:13:46 Visit Care, Ang Primary 74836.1.1 ity of 3.104.2.7 [place] .3.495268 Medica l .8 [place] 2020-12-02 2020-12-02 Outpatient R HANNAH ROMERO [facility] [id number] [id number] Univers 10:30:00 10:30:00 ity of [facility] 2020-12-02 2020-12-02 Orders Doctor DOMINGO 1.2.840.114 [id number] Univers 00:00:00 00:00:00 Only Unassigned, ELIAS 350.1.13.10 ity of [facility] 4.2.7.2.686 [place] [phone] [address] 2020-12-02 2020-12-02 Orders Doctor 1.2.840.8 [id number] Univers 00:00:00 00:00:00 Only Unassigned, 83224.1.1 ity of [place] 3.104.2.7 [place] .3.972552 Medica l .8 [place] 2020-12-02 2020-12-02 Travel 1.2.840.1 1.2.663.083 3692 7975 Univers 00:00:00 00:00:00 87633.1.1 350.1.13.10 ity of 3.104.2.7 4.2.7.3.698 [place] .3.927480 084.8 Medica l .8 [place] 2020-11-22 2020-11-22 Refill Hannah Romero 1.2.840.1 [id number] Univers 00:00:00 00:00:00 52847.1.1 ity of 3.104.2.7 [place] .3.403099 Medica l .8 [place] 2020-11-22 2020-11-22 Refill Hannah Romero [facility] 1.2.840.114 [id number] Univers 00:00:00 00:00:00 SPECIALTY 350.1.13.10 ity of [place] 4.2.7.2.686 [facility] [id number] [facility] [address] 2020-11-12 2020-11-13 Emergency Anaya Kumari [facility] 1.2.840.1 14 [id number] Univers 09:52:00 14:40:00 Anthony Patel 350.1.13.10 ity of [place] 4.2.7.2.686 [facility] [id number] [facility] [address] 2020-11-12 2020-11-13 Emergency Anaya Kumari S 1.2.840.1 [id number] Univers 09:52:00 14:40:00 Anthony Patel 68688.1.1 ity of 3.104.2.7 [place] .3.672224 Medica l .8 [place] 2020-11-12 2020-11-13 Emergency Anaya Kumari [place] 1.2.840.1 14 [id number] Univers 09:52:00 14:40:00 Anthony Patel 350.1.13.10 ity of [place] 4.2.7.2.686 [facility] [id number] [facility] [address] 2020-11-12 2020-11-12 Telephone Hannah Romero 1.2.840.114 [id number] [facility] 00:00:00 00:00:00 [facility] 350.1.13.10 [place] [id number] [facility] [address] 2020-11-12 2020-11-12 Telephone Hannah Romero 1.2.840.114 [id number] [facility] 00:00:00 00:00:00 [place] 350.1.13.10 [place] [id number] [facility] [address] 2020-11-12 2020-11-12 Telephone Hannah Romero 1.2.840.9 [id number] [facility] 00:00:00 00:00:00 16903.1.1 ity of 3.104.2.7 [place] .3.079237 Medica l .8 [place] 2020-11-12 2020-11-12 Travel 1.2.840.1 1.2.922.213 0101 [id number] [facility] 00:00:00 00:00:00 18276.1.1 350.1.13.10 ity of 3.104.2.[place]3.698 [place] .3.677958 084.8 [place] l .8 [place] 2020-11-11 2020-11-11 Telephone Hannah Romero 1.2.840.114 [id number] [facility] 00:00:00 00:00:00 [facility] 350.1.13.10 [id number] [address] 2020-11-11 2020-11-11 Telephone Hannah Romero 1.2.840.114 [id number] [facility] 00:00:00 00:00:00 [facility] 350.1.13.10 [place] [id number] [address] 2020-11-11 2020-11-11 Telephone Hannah Romero 1.2.840.3 [id number] [facility] 00:00:00 00:00:00 99225.1.1 ity of 3.104.2.7 [place] .3.485427 Medica l .8 [place] 2020-11-09 2020-11-09 Telephone Hannah Romero 1.2.840.114 [id number] [facility] 00:00:00 00:00:00 [facility] 350.1.13.10 [place] [id number] [address] 2020-11-09 2020-11-09 Telephone Hannah Romero 1.2.840.114 [id number] [facility] 00:00:00 00:00:00 [facility] 350.1.13.10 [place] [id number] [address] 2020-11-09 2020-11-09 Telephone Hannah Romero 1.2.840.0 [id number] [facility] 00:00:00 00:00:00 13433.1.1 ity of 3.104.2.7 [place] .3.759658 Medica l .8 [place] 2020-11-05 2020-11-05 Orders Doctor DOMINGO 1.2.840.114 [id number] [facility] 00:00:00 00:00:00 Only Unassigned, ELIAS 350.1.13.10 ity of [place] [facility] 4.2.7.2.686 [place] as [phone] [facility] 009 [place] 2020-11-05 2020-11-05 Orders Doctor 1.2.840.2 [id number] [facility] 00:00:00 00:00:00 Only Unassigned, 57332.1.1 ity of [place] 3.104.2.7 [place] .3.179460 Medica l .8 [place] 2020-11-05 2020-11-05 Orders Doctor DOMINGO 1.2.840.114 [id number] Univers 00:00:00 00:00:00 Only Unassigned, ELIAS 350.1.13.10 ity of [place] [facility] 4.2.7.2.686 Kamron as [phone] [address] 2020-11-04 2020-11-04 [facility] 1.2.840.114 [id number] Univers 09:00:13 23:59:00 Encounter Rian Villalba 350.1.13.10 ity of [place] 4.2.7.[address] [place] [address] [phone] [facility] [address] [place] 2020-11-04 2020-11-04 [facility] 1.2.840.114 [id number] 140 Univers 09:00:13 23:59:00 Encounter Rian Villalba 350.1.13.10 ity of [place] 4.2.7.2.[address] [place] [address] [phone] [facility] [address] [place] 2020-11-04 2020-11-04 [place] [address].2.840.1 [id number] 8140 Univers 09:00:13 23:59:00 Encounter Sendil Sixto. 35279.1.1 ity of 3.104.2.7 [place] .3.596308 Medica l .8 [address] 2020-11-04 2020-11-04 [facility] 1.2.840.114 [id number] 141 Univers 09:00:00 09:00:00 Encounter Senddionisio Villalba 350.1.13.10 ity of [place] 4.2.7.2.686 [facility] [phone] [facility] [address] 2020-11-04 2020-11-04 [facility] 1.2.840.114 [id number] 141 Univers 09:00:00 09:00:00 Encounter Senddionisio Villalba 350.1.13.10 ity of [place] 4.2.7.2.686 [facility] [phone] [facility] [address] 2020-11-04 2020-11-04 [place] [address].2.840.7 [id number] 8141 Univers 09:00:00 09:00:00 Encounter Sendil Dada 88411.1.1 ity of 3.104.2.7 [place] .3.718604 Medica l .8 [address] 2020-11-04 2020-11-04 [facility] 1.2.840.114 [id number] 142 Univers 08:59:47 08:59:47 Encounter Rian Villalba 350.1.13.10 ity of [place] 4.2.7.2.686 [facility] [phone] [facility] [address] 2020-11-04 2020-11-04 [facility] 1.2.840.114 [id number] 142 Univers 08:59:47 08:59:47 Encounter Senddionisio Villalba 350.1.13.10 ity of [place] 4.2.7.2.686 [facility] [phone] [facility] [address] 2020-11-04 2020-11-04 [facility], .2.840.5 [id number] Univers 08:59:47 08:59:47 Encounter Sendil Dada 64741.1.1 ity of 3.104.2.7 [place] .3.700669 Medica l .8 [address] 2020-11-04 2020-11-04 [facility] 1.2.840.114 [id number] 139 Univers 08:59:34 08:59:34 Encounter Sendil Dada [place] 350.1.13.10 ity of [place] 4.2.7.2.686 [facility] [phone] [facility] [address] 2020-11-04 2020-11-04 [facility] 1.2.840.114 [id number] 139 Univers 08:59:34 08:59:34 Encounter Sendil Dada Villalba 350.1.13.10 ity of [place] 4.2.7.2.686 [facility] [phone] [facility] [address] [place] 2020-11-04 2020-11-04 [place] [address].2.840.6 [id number] 8139 Univers 08:59:34 08:59:34 Encounter Sendil Dada 02621.1.1 ity of 3.104.2.7 [place] .3.978373 Medica l .[address] [place] 2020-11-04 2020-11-04 [facility] [id number] Univers 00:00:00 00:00:00 SENDIL ity of [facility] 2020-11-02 2020-11-02 Telephone Hannah Romero 1.2.840.114 [id number] Univers 00:00:00 00:00:00 [facility] 350.1.13.10 it y [place] [id number] [address] 2020-11-02 2020-11-02 Telephone Hannah Romero 1.2.840.114 [id number] Univers 00:00:00 00:00:00 [facility] 350.1.13.10 it y [place] [id number] [address] 2020-11-02 2020-11-02 Telephone Hannah Romero 1.2.840.9 [id number] Univers 00:00:00 00:00:00 96705.1.1 ity of 3.104.2.7 [place] .3.666775 Medica l .[address] [place] 2020-10-28 2020-10-28 Outpatient R PAL [facility] [id number] Univers 14:00:00 14:00:00 LASHAE ity of [facility] 2020-10-28 2020-10-28 [facility] 1.2.815.218 [id number] 3261 Univers 13:34:19 13:58:27 Visit Lashae TUNGPEC 350.1.13.10 it[place] [id number] [address] [facility] 2020-10-28 2020-10-28 [facility] 1.2.779.699 [id number] 3261 Univers 13:34:19 13:58:27 Visit Lashae TUNGPEC 350.1.13.10 it[place] [id number] [address] [facility] 2020-10-28 2020-10-28 Office Pal 1.2.840.5 [id number] Univers 13:34:19 13:58:27 Visit Lashae 48799.1.1 ity of 3.104.2.7 [place] .3.494175 Medica l .[address] [place] 2020-10-28 2020-10-28 Orders Doctor DOMINGO 1.2.840.114 [id number] Univers 00:00:00 00:00:00 Only Unassigned, ELIAS 350.1.13.10 ity of [place] [facility] 4.2.7.2.686 [place] as [phone] [address] 2020-10-28 2020-10-28 [facility] 1.2.840.114 86 [id number] Univers 00:00:00 00:00:00 Lashae MULTISPEC 350.1.13.10 it[place] [id number] [address] [facility] 2020-10-28 2020-10-28 Orders Doctor DOMINGO 1.2.840.114 [id number] Univers 00:00:00 00:00:00 Only Unassigned, ELIAS 350.1.13.10 ity of [place] [facility] 4.2.7.2.686 [place] as [phone] [facility] [address] [place] 2020-10-28 2020-10-28 [facility] 1.2.840.114 86 [id number] Univers 00:00:00 00:00:00 Lashae MULTISPEC 350.1.13.10 ity of IALTY 4.2.7.2.686 [facility] [phone] [address] [facility] 2020-10-28 2020-10-28 Telephone Pal 1.2.840.7 [id number] Univers 00:00:00 00:00:00 Lashae 36684.1.1 ity of 3.104.2.7 [place] .3.843182 Medica l .[address] [place] 2020-10-28 2020-10-28 Orders Doctor 1.2.840.2 [id number] Univers 00:00:00 00:00:00 Only Unassigned, 48644.1.1 ity of [place] 3.104.2.7 [place] .3.131531 Medica l .[address] [place] 2020-10-28 2020-10-28 Travel 1.2.840.1 1.2.471.068 9133 [id number] Univers 00:00:00 00:00:00 72290.1.1 350.1.13.10 ity of 3.104.2.7 [place].3.698 [place] .3.641763 084.8 Medica l .8 [place] 2020-10-22 2020-10-22 [facility] 1.2.840.114 86 [id number] Univers 00:00:00 00:00:00 Lashae MULTISPEC 350.1.13.10 ity of IALTY 4.2.7.2.686 [facility] [id number] [facility] [address] [facility] 2020-10-22 2020-10-22 Telephone Pal, 1.2.840.4 [id number] Univers 00:00:00 00:00:00 Lashae 77316.1.1 ity of 3.104.2.7 [place] .3.863609 Medica l .[address] [place] 2020-10-14 2020-10-14 [facility] 1.2.840.114 [id number] Univers 10:47:33 11:53:21 Visit Senddionisio Villalba 350.1.13.10 [place] [phone] Ga dical nal 059 [facility] 2020-10-14 2020-10-14 Office [facility] 1.2.840.114 [id number] Univers 10:47:33 11:53:21 Visit Rian Villalba 350.1.13.10 [place] [phone] Ga dical nal 059 [facility] 2020-10-14 2020-10-14 Office Layne, 1.2.840.0 [id number] 035 Univers 10:47:33 11:53:21 Visit Rian Garland 88703.1.1 ity of 3.104.2.7 [place] .3.983827 Medica l .[address] [place] 2020-10-14 2020-10-14 Outpatient R LAYNE [facility] [id number] Univers 11:00:00 11:00:00 SENDIL ity of [facility] 2020-10-14 2020-10-14 Travel 1.2.840.1 1.2.991.876 3273 [id number] Univers 00:00:00 00:00:00 89645.1.1 350.1.13.10 ity of 3.104.2.7 [place].3.698 [place] .3.3801[place] 084.8 Medica l .[address] [place] 2020-10-04 2020-10-04 Outpatient R PAL [facility] [id number] Univers 14:00:00 14:00:00 LASHAE ity [facility] 2020-10-04 2020-10-04 Outpatient Dakotah PAL [facility] [id number] Univers 14:00:00 14:00:00 LASHAE ity [facility] 2020-09-24 2020-09-24 Orders Doctor DOMINGO 1.2.840.114 [id number] Univers 00:00:00 00:00:00 Only Unassigned, ELIAS 350.1.13.10 ity of [place] [facility] 4.2.7.2.686 [place] [phone] [facility] [address] 2020-09-24 2020-09-24 Telephone Hannah Romero 1.2.840.114 [id number] Univers 00:00:00 00:00:00 [facility] 350.1.13.10 it [place] [id number] [facility] [address] [place] 2020-09-23 2020-09-23 Refill Hannah Romero [facility] 1.2.840.114 [id number] Univers 00:00:00 00:00:00 SPECIALTY 350.1.13.10 ity of [place]2.[place] [id number] [facility] [address] 2020-09-21 2020-09-21 Refill Hannah Romero [facility] 1.2.840.114 85 [id number] Univers 00:00:00 00:00:00 SPECIALTY 350.1.13.10 ity of [place] 4[place]7.2.[place] [id number] [facility] [address] 2020-09-15 2020-09-15 Telephone Hannah Romero 1.2.840.114 [id number] Univers 00:00:00 00:00:00 [facility] 350.1.13.10 it [place] [phone] [facility] [address] 2020-09-01 2020-09-01 Office ANJELICA Fuller 1.2.840.114 [id number] Univers 14:30:13 15:09:55 Visit [facility] 350.1.13.10 i ty of [facility] 4.2.7.2.686 [place] [phone] [facility] [address] [place] 2020-09-01 2020-09-01 Outpatient R ALINA [facility] [id number] Univers 14:30:00 14:30:00 YOHAN [facility] 2020-08-27 2020-08-27 Office [facility] 1.2.120.639 [id number] 3995 Univers 13:55:47 15:31:59 Visit Keyur Villalba 350.1.13.10 i [place] [phone] [facility] 220 [facility] 2020-08-27 2020-08-27 [facility] [id number] Univers 14:00:00 14:00:00 KEYUR [facility] 2020-08-26 2020-08-26 Refill Hannah Romero [facility] 1.2.840.114 [id number] Univers 00:00:00 00:00:00 SPECIALTY 350.1.13.10 ity [facility] [place].2.[place] [phone] [facility] [address] [place] 2020-08-20 2020-08-20 Telephone HeatherHannah 1.2.840.114 [id number] Univers 00:00:00 00:00:00 [facility] 350.1.13.10 it of [facility] [place].2.7.2.[place] [id number] [facility] [address] [place] 2020-08-19 2020-08-19 Office [facility] 1.2.840.114 [id number] Univers 08:56:39 10:09:07 Visit Nirav Michael 350.1.13.10 i [place] [phone] [facility] 204 [facility] 2020-08-19 2020-08-19 [facility] [id number] Univers 09:00:00 09:00:00 NIRAV ity [facility] 2020-08-19 2020-08-19 Orders Doctor DOMINGO 1.2.840.114 [id number] Univers 00:00:00 00:00:00 Only Unassigned, ELIAS 350.1.13.10 ity of [place] [facility] 4.2.7.2.686 [place] [phone] [address] 2020-08-17 2020-08-17 Orders Doctor DOMINGO 1.2.840.114 [id number] Univers 00:00:00 00:00:00 Only Unassigned, ELIAS 350.1.13.10 ity of [place] [facility] 4.2.7.2.686 [place] [phone] [address] 2020-08-17 2020-08-17 Telephone Hannah Romero 1.2.840.114 [id number] Univers 00:00:00 00:00:00 [facility] 350.1.13.10 it [place] [id number] [address] 2020-08-16 2020-08-16 Telephone Hannah Romero 1.2.840.114 [id number] Univers 00:00:00 00:00:00 [facility] 350.1.13.10 it [place] [id number] [address] 2020-08-12 2020-08-12 Office Care, Naveed GEORGE 1.2.840 .114 [id number] Univers 10:28:51 11:43:44 Visit Hannah Romero [facility] 350.1.13.10 it[place] [id number] [address] 2020-08-12 2020-08-12 Outpatient R HANNAH ROMERO [facility] [id number] Univers 10:30:00 10:30:00 ity of [facility] 2020-08-12 2020-08-12 Orders Doctor MEDINA 1.2.840.114 [id number] Univers 00:00:00 00:00:00 Only Unassigned, ELIAS 350.1.13.10 ity of [place] [facility] 4.2.7.2.686 [place] [phone] [facility] [address] 2020-08-11 2020-08-11 Telephone Pal [facility] 1.2.840.114 [id number] Univers 00:00:00 00:00:00 Lashae RUBYPEC 350.1.13.10 it[place] [id number] [address] [facility] 2020-08-05 2020-08-05 Outpatient R LAYNE [facility] [id number] Univers 10:57:21 10:57:21 SENDIL ity [facility] 2020-07-29 2020-07-29 Emergency Singer [facility] 1.2.716.515 [id number] Univers 12:31:00 19:10:00 Ulises Michael 350.1.13.10 i [place]7.2.[place] [phone] [facility] [address] 2020-07-29 2020-07-29 Office Pal [facility] 1.2.442.204 [id number] Univers 09:59:01 11:07:13 [facility] 350.1.13.10 [facility] 4.2.7.2.686 [facility] [place] [id number] [address] [facility] 2020-07-29 2020-07-29 Outpatient R PAL [facility] [id number] Univers 10:30:00 10:30:00 LASHAE ity [facility] 2020-07-28 2020-07-28 Telephone Hannah Romero 1.2.840.114 [id number] Univers 00:00:00 00:00:00 [facility] 350.1.13.10 it y [place] [id number] [facility] [address] 2020-07-28 2020-07-28 Refill Hannah Romero [facility] 1.2.840.114 [id number] Univers 00:00:00 00:00:00 SPECIALTY 350.1.13.10 ity of [place] 4[place]7.2.[place] [id number] [facility] [address] 2020-07-15 2020-07-15 Orders Doctor DOMINGO 1.2.840.114 [id number] Univers 00:00:00 00:00:00 Only Unassigned, ELIAS 350.1.13.10 ity of [place] [facility] 4.2.7.2.686 [place] [phone] [facility] [address] 2020-07-14 2020-07-14 Office Layne [facility] 1.2.840.114 [id number] Univers 09:06:19 09:42:58 Visit Rian Villalba 350.1.13.10 [place] 4[place].2.[place] [phone] [facility] 059 [facility] 2020-07-14 2020-07-14 Outpatient R LAYNE [facility] [id number] Univers 09:00:00 09:00:00 SENDIL ity of [facility] 2020-06-28 2020-06-28 Refill Hannah Romero [facility] 1.2.840.114 [id number] Univers 00:00:00 00:00:00 SPECIALTY 350.1.13.10 it[place] 4[place].2.[place] [id number] [facility] [address] 2020-06-16 2020-06-16 Orders Doctor DOMINGO 1.2.840.114 [id number] Univers 00:00:00 00:00:00 Only Unassigned, ELIAS 350.1.13.10 ity of [place] [facility] 4.2.7.2.686 [place] [phone] [facility] [address] 2020-06-09 2020-06-09 Telephone Pal [facility] 1.2.840.114 [id number] Univers 00:00:00 00:00:00 Lashae MULTISPEC 350.1.13.10 it[place] [id number] [facility] [place] [address] [facility] 2020-06-08 2020-06-08 Telephone Hannah Romero 1.2.840.114 [id number] Univers 00:00:00 00:00:00 [facility] 350.1.13.10 it y [place] [phone] [facility] [address] [place] 2020-06-03 2020-06-03 Office Care, Naveed GEORGE 1.2.840 .114 [id number] Univers 10:32:52 12:27:22 Visit Hannah Romero [facility] 350.1.13.10 it[place] [id number] [facility] [address] [place] 2020-06-03 2020-06-03 Outpatient R HANNAH ROMERO [facility] [id number] Univers 10:30:00 10:30:00 ity [facility] 2020-06-03 2020-06-03 Orders Doctor DOMINGO 1.2.840.114 [id number] Univers 00:00:00 00:00:00 Only Unassigned, ELIAS 350.1.13.10 ity of [place] [facility] 4.2.7.2.686 [place] [phone] [facility] [address] 2020-05-25 2020-05-25 Refill Hannah Romero [facility] 1.2.840.114 [id number] Univers 00:00:00 00:00:00 SPECIALTY 350.1.13.10 ity [place] 4[place]7.2.[place] [id number] [facility] [address] 2020-05-24 2020-05-24 Refill Hannah Romero ARIEL 1.2.840.114 [id number] Univers 00:00:00 00:00:00 [facility] 350.1.13.10 it y [place] [id number] [facility] [address] [place] 2020-04-19 2020-04-19 Outpatient Dakotah ALLEN [facility] [id number] Univers 00:00:00 00:00:00 [facility] 2020-04-12 2020-04-12 Outpatient Dakotah TILLMAN [facility] [id number] Univers 14:00:00 14:00:00 [facility] 2020-04-12 2020-04-12 Outpatient R PAL [facility] [id number] Univers 10:00:00 10:00:00 LASHAE ity [facility] 2020-04-05 2020-04-05 Telephone Pal [facility] 1.2.840.114 [id number] Univers 00:00:00 00:00:00 Lashae MULTISPEC 350.1.13.10 ity of IALTY 4.2.7.2.686 [facility] [place] [phone] [address] [facility] 2020-03-29 2020-03-29 Outpatient [facility] [id number] Univers 10:00:00 10:00:00 SENDIL ity [facility] 2020-03-12 2020-03-12 Telephone Hannah Romero 1.2.840.114 [id number] Univers 00:00:00 00:00:00 [facility] 350.1.13.10 it y of HEALTH 4.2.7.2.686 [facility] [id number] [facility] [address] 2020-03-09 2020-03-09 Outpatient Dakotah TILLMAN [facility] [id number] Univers 10:00:00 10:00:00 SENDIL ity of [facility] 2020-02-29 2020-02-29 Refill Hannah Romero [facility] 1.2.840.114 [id number] Univers 00:00:00 00:00:00 SPECIALTY 350.1.13.10 ity of [place] 4.2.7.2.686 [facility] [place] [id number] [facility] [address] 2020-02-11 2020-02-11 Telephone Hannah Romero 1.2.840.114 [id number] Univers 00:00:00 00:00:00 [facility] 350.1.13.10 it [place] [id number] [address] 2020-02-11 2020-02-11 Orders Doctor MEDINA 1.2.840.114 [id number] Univers 00:00:00 00:00:00 Only Unassigned, ELIAS 350.1.13.10 ity of [place] [facility] 4.2.7.2.686 [place] [id number] [address] 2020-01-21 2020-01-21 Outpatient R [facility] [id number] Univers 10:15:00 10:15:00 ity of [facility] 2020-01-21 2020-01-21 Orders Doctor DOMINGO 1.2.840.114 [id number] Univers 00:00:00 00:00:00 Only Unassigned, ELIAS 350.1.13.10 ity of [place] [facility] 4.2.7.2.686 [place] [phone] [address] 2020-01-13 2020-01-13 Telephone Hannah Romero 1.2.840.114 [id number] Univers 00:00:00 00:00:00 [facility] 350.1.13.10 it [place] [id number] [address] 2020-01-05 2020-01-05 Refill Hannah Romero 1.2.840.114 [id number] Univers 00:00:00 00:00:00 [facility] 350.1.13.10 it y [place] [id number] [address] 2019-12-29 2019-12-29 Refill Hannah Romero [facility] 1.2.840.114 [id number] Univers 00:00:00 00:00:00 SPECIALTY 350.1.13.10 it[place]2.[place] [id number] [facility] [address] [place] 2019-12-26 2019-12-26 Orders Doctor DOMINGO 1.2.840.114 [id number] Univers 00:00:00 00:00:00 Only Unassigned, ELIAS 350.1.13.10 ity of [place] [facility] 4.2.7.2.686 [place] [phone] [address] 2019-12-24 2019-12-24 Outpatient R IRASEMA [facility] [id number] Univers 13:00:00 13:00:00 DOMINGOy of [facility] 2019-12-18 2019-12-18 Office Care, Naveed GEORGE 1.2.840 .114 [id number] Univers 11:15:31 11:16:27 Visit Heather [facility] 350.1.13.10 it[place] [id number] [address] 2019-12-18 2019-12-18 Outpatient [facility] [id number] Univers 08:00:00 08:00:00 ity [facility] 2019-12-16 2019-12-16 Outpatient R [facility] [id number] Univers 09:30:00 09:30:00 ity [facility] 2019-12-15 2019-12-15 [facility] 1.2.840.114 [id number] Univers 10:37:16 23:59:00 Encounter Maral SPECIALTY 350.1.13.10 [place] AT [phone] Ga william MISTRY 3 [facility] 2019-12-15 2019-12-15 Outpatient [id number] Univers 00:00:00 00:00:00 MARAL ity [facility] 2019-12-11 2019-12-11 Outpatient R HEATHER [facility] [id number] Univers 13:30:00 13:30:00 ity [facility] 2019-12-11 2019-12-11 Telemedici Care, Ang Primary [place] 1.2. 840.114 [id number] Univers 11:37:39 12:31:07 ne Visit Hannah Romero [facility] 350.1.13.10 it[place] [id number] [address] 2019-12-03 2019-12-03 [facility] [id number] Univers 09:00:00 09:00:00 SENDIL ity [facility] 2019-12-03 2019-12-03 Outpatient R [facility] [id number] Univers 00:00:00 00:00:00 MARAL ity [facility] 2019-12-02 2019-12-02 [facility] 1.2.822.733 [id number] Univers 00:00:00 00:00:00 Sendil Dada Villalba 350.1.13.10 it[id number] [phone] [place]ical n[place] 059 [facility] 2019-12-01 2019-12-01 RefHannah Nielsen [facility] [id number] [id number] Univers 00:00:00 00:00:00 SPECIALTY [id number] [id number] [phone] [facility] [address] 2019-12-01 2019-12-01 Telephone ANJELICA Fuller [id number] Univers 00:00:00 00:00:00 [facility] [id number] i ty of [facility] [id number] [place] [phone] [facility] [address] 2019-11-27 2019-11-27 Office Layne [facility] 1.2.840.114 [id number] Univers 09:27:40 09:51:45 Visit Sendil Dada Villalba [id number] [id number] [phone] [place]ical nal 059 [facility] 2019-11-27 2019-11-27 Outpatient R LAYNE [facility] [id number] Univers 09:30:00 09:30:00 SENDIL ity of [facility] 2019-11-25 2019-11-25 Telephone Irasema [facility] [id number] Univers 00:00:00 00:00:00 , Domingo GROSS [id number] ity of [facility] [id number] [phone] [facility] [place] [address] [facility] 2019-11-20 2019-11-20 Outpatient R LAYNE [facility] [id number] Univers 08:00:00 08:00:00 SENDIL ity [facility] 2019-11-04 2019-11-11 Office Alina [facility] 1.2.840.114 [id number] Univers 08:09:17 11:11:34 Visit [facility] [id number] it y of [facility] [id number] [place] Center - [phone] [facility] [address] 2019-11-09 2019-11-09 Telephone [facility] [id number] Univers 00:00:00 00:00:00 Sendil Dada Villalba [id number] ity [facility] [id number] [phone] [place] dical nal 059 [facility] 2019-11-04 2019-11-04 Outpatient R ALINA [facility] [id number] Univers 08:30:00 08:30:00 [facility] 2019-11-04 2019-11-04 Letter [facility] [id number] [id number] Univers 00:00:00 00:00:00 (Out) [facility] [id number] it y of [facility] [id number] [place] Center - [phone] [address] 2019-10-31 2019-10-31 Outpatient R LAYNE [facility] [id number] Univers 09:00:00 09:00:00 [facility]-07 2019-10-14 Office [facility] 1.2.840.114 [id number] Univers 08:57:24 15:15:16 Visit [facility] [id number] [id number] [facility] [phone] [facility] [facility]ty Care 2019-10-13 2019-10-13 Telephone Hannah Romero 1.2.840.114 [id number] Univers 00:00:00 00:00:00 [facility] 350.1.13.10 [place] [phone] [facility] [address] 2019-10-09 2019-10-09 Office CareNaveed 1.2.840 .114 [id number] Univers 10:18:04 12:10:55 Visit Hannah Romero [facility] 350.1.13.10 [place] [id number] [address] 2019-10-09 2019-10-09 Outpatient R HEATHER HANNAH [facility] [id number] Univers 10:30:00 10:30:00 ity [facility] 2019-10-07 2019-10-07 Outpatient R GABE [facility] [id number] Univers 09:15:00 09:15:00 BILAL ity [facility] 2019-10-01 2019-10-01 Telephone Hannah RomeroILIANA 1.2.840.114 [id number] Univers 00:00:00 00:00:00 [facility] 350.1.13.10 [place] [id number] [address] 2019-09-30 2019-09-30 Outpatient R NAEL [facility] [id number] Univers 00:00:00 00:00:00 MARAL ity [facility] 2019-09-29 2019-09-29 Refill Hannah Romero ARIEL 1.2.840.114 [id number] Univers 00:00:00 00:00:00 [facility] 350.1.13.10 [place] [id number] [address] 2019-09-03 2019-09-03 Telephone Sofia Romerokirstie GEORGE 1.2.840.114 [id number] Univers 00:00:00 00:00:00 [facility] 350.1.13.10 [place] [id number] [address] 2019-09-01 2019-09-01 Telephone Gabe [facility] 1.2.487.145 [id number] Univers 00:00:00 00:00:00 [facility] HEALTH 350.1.13.10 [place] [id number] [facility] Branch Specialty Care 2019-08-21 2019-08-21 Refill Hannah Romero 1.2.840.114 [id number] Univers 00:00:00 00:00:00 [facility] 350.1.13.10 [place] [id number] [facility] [address] 2019-08-19 2019-08-19 Telephone [facility] 1.2.781.016 [id number] Univers 00:00:00 00:00:00 [facility] 350.1.13.10 [place] [facility] [phone] [facility]ty [facility] 2019-08-15 2019-08-15 Outpatient R [facility] [id number] Univers 12:23:45 23:59:00 BILAL ity of [facility] 2019-08-15 2019-08-15 [facility] 1.2.840.114 [id number] Univers 12:23:00 23:59:00 Encounter [facility] 350.1.13.10 [place] [phone] [facility] 8[address] Branch (CLC) 2019-08-08 2019-08-08 Orders Doctor DOMINGO 1.2.840.114 [id number] Univers 00:00:00 00:00:00 Only Unassigned, ELIAS 350.1.13.10 ity of [place] HOSPITAL 4.2.7.2.686 [place] as [phone] [facility] 009 Branch 2019-08-07 2019-08-07 Telephone [facility] 1.2.840.114 [id number] Univers 00:00:00 00:00:00 , Domingo RUBYPEC 350.1.13.10 it[place] of [place] [id number] [facility] [place] 312 [address] [facility] 2019-08-07 2019-08-07 Telephone [facility] [place] UNIVERSIT 1.2.840.11 [id number] Univers 00:00:00 00:00:00 , Domingo Y HEALTH 350.1.13.10 i ty of CL[place]ICS [place] [id number] [facility] [address] Branch 2019-08-04 2019-08-04 Office [facility] 1.2.840.114 [id number] Univers 08:12:19 08:43:59 Visit , Domingo GROSS 350.1.13.10 ity of IALTY 4.2.7.2.686 [facility] [id number] [facility] [place] [address] [place] DIAB[facility] 2019-08-04 2019-08-04 Outpatient R [facility] [id number] Univers 08:30:00 08:30:00 , DOMINGO ity of [facility] 2019-07-30 2019-07-30 Orders Doctor DOMINGO 1.2.840.114 [id number] Univers 00:00:00 00:00:00 Only Unassigned, ELIAS 350.1.13.10 ity of [place] [facility] 4.2.7.2.686 [facility] [id number] [facility] [address] Branch 2019-07-21 2019-07-21 Telephone [facility] 1.2.840.114 [id number] Univers 00:00:00 00:00:00 , Domingo GROSS 350.1.13.10 ity of IALTY 4.2.7.2.686 [facility] [id number] [address] DIABETES CLINIC 2019-07-02 2019-07-02 Telephone [facility] 1.2.644.497 [id number] Univers 00:00:00 00:00:00 [facility] 350.1.13.10 it y of Cancer 4.2.7.2.686 [facility] - [phone] Med ical MDA [address] Branch 2019-07-01 2019-07-01 [facility] UNIVERSIT 1.2.840.1 [id number] Univers 09:11:00 23:59:00 Encounter Noe [place] HEALTH 350.1.13.10 ity of [place]ph [place] CLINICS 4.2.7.2.686 [place] [id number] [facility] 803 Branch 2019-07-01 2019-07-01 Outpatient R [facility] [id number] Univers 00:00:00 00:00:00 BILAL ity of [facility] 2019-06-30 2019-06-30 Refill Soifa Romerokirstie GEORGE 1.2.840.114 [id number] Univers 00:00:00 00:00:00 [facility] 350.1.13.10 [place] [id number] [address] 2019-06-26 2019-06-26 Refill Sofia Romerokirstie GEORGE 1.2.840.114 [id number] Univers 00:00:00 00:00:00 [facility] 350.1.13.10 [place] [id number] [address] 2019-06-26 2019-06-26 Refill Hannah Romero ARIEL 1.2.840.114 [id number] Univers 00:00:00 00:00:00 [facility] 350.1.13.10 it [place] [id number] [address] 2019-06-16 2019-06-16 Telephone Sofia Romerokirstie GEORGE 1.2.840.114 [id number] Univers 00:00:00 00:00:00 [facility] 350.1.13.10 it [place] [id number] [address] 2019-06-10 2019-06-10 Outpatient Dakotah BERNAL [facility] [id number] [id number] Univers 10:30:00 10:30:00 BILAL ity of [facility] 2019-06-10 2019-06-10 TelemedicANJELICA Moon 1.2.840.114 [id number] Univers 07:45:03 08:00:03 ne Visit Bilal Y HEALTH 350.1.13.10 it[place] of [place] [id number] [address] 2019-05-27 2019-05-27 Refill Hannah Romero ARIEL 1.2.840.114 7 [id number] Univers 00:00:00 00:00:00 [facility] 350.1.13.10 it [place] [id number] [address] 2019-05-27 2019-05-27 Refill Sofia Romerokirstie GEORGE 1..840.114 7 [id number] Univers 00:00:00 00:00:00 [facility] 350.1.13.10 it [place] [id number] [address] 2019-05-27 2019-05-27 Refill Hannah Romero ARIEL 1.2.840.114 [id number] Univers 00:00:00 00:00:00 [facility] 350.1.13.10 it [place] [id number] [address] 2019-05-23 2019-05-23 Telempaul Tillman [facility] 1.2.840.114 [id number] Univers 08:10:44 21:22:44 ne Visit Rian [place] 350.1.13.10 ity of [place] [phone] [place] [id number] [facility] 2019-05-23 2019-05-23 Outpatient R LAYNE [facility] [id number] Univers 09:30:00 09:30:00 SENDIL ity [facility] 2019-05-23 2019-05-23 Telephone Hannah Romero 1.2.840.114 [id number] Univers 00:00:00 00:00:00 [facility] 350.1.13.10 it [place] [id number] [address] 2019-01-27 2019-05-15 [facility] 1.2.840.114 [id number] Univers 08:16:39 11:43:24 Visit , Domingo GROSS 350.1.13.10 ity [place]2.[place] C[place] [id number] [address] DIABETES CLINIC 2019-05-15 2019-05-15 Telephone HeatherHannah 1.2.840.114 [id number] Univers 00:00:00 00:00:00 [facility] 350.1.13.10 it [place] [id number] [address] 2019-05-01 2019-05-01 Refill Hannah Romero ARIEL 1.2.840.114 [id number] Univers 00:00:00 00:00:00 [facility] 350.1.13.10 it [place] [id number] [address] 2019-05-01 2019-05-01 Refill Hannah Romero ARIEL 1.2.840.114 [id number] Univers 00:00:00 00:00:00 [facility] 350.1.13.10 it [place] [id number] [address] 2019-05-01 2019-05-01 Refill Hannah Romero ARIEL 1.2.840.114 7 [id number] Univers 00:00:00 00:00:00 [facility] 350.1.13.10 it [place] [id number] [address] 2019-05-01 2019-05-01 Orders Doctor DOMINGO 1.2.840.114 [id number] Univers 00:00:00 00:00:00 Only Unassigned, ELIAS 350.1.13.10 ity of [place] HOSPITAL 4.2.7.2.686 [place] [phone] [address] 2019-04-10 2019-04-10 Office Care, Naveed GEORGE 1.2.840 .114 [id number] Univers 11:25:26 13:50:28 Visit Hannah Romero [facility] 350.1.13.10 it[place] [id number] [address] 2019-04-10 2019-04-10 Outpatient R HANNAH ROMERO [facility] [id number] Univers 11:30:00 12:10:00 ity of [facility] 2019-03-17 2019-03-17 Orders Doctor DOMINGO 1.2.840.114 [id number] Univers 00:00:00 00:00:00 Only Unassigned, ELIAS 350.1.13.10 ity of [place] HOSPITAL 4.2.7.2.686 [place] [phone] [facility] 009 Branch 2019-02-13 2019-02-13 Outpatient R HANNAH ROMERO [facility] [id number] Univers 09:30:00 09:55:00 ity [facility] 2019-01-27 2019-01-27 Outpatient R IRASEMA [facility] [id number] Univers 08:30:00 09:33:43 , DOMINGO ity [facility] 2018-11-21 2018-11-22 Office Care, Naveed GEORGE 1.2.840 .114 [id number] Univers 08:24:12 14:12:41 Visit Hannah Romero [facility] 350.1.13.10 it[place] [id number] [address] 2018-11-15 2018-11-15 Refill Hannah Romero ARIEL 1.2.840.114 7 [id number] Univers 00:00:00 00:00:00 [facility] 350.1.13.10 it [place] [id number] [address] 2018-10-25 2018-11-14 Nurse Visit, [facility] Nurse [facility] 1.2.840.1 [id number] Univers 09:30:25 13:34:19 Visit Rian Tillman 350.1.13. 10 it[place] of [place] [phone] [facility] nal 059 [facility] 2018-11-05 2018-11-05 Office [facility] 1.2.840.114 [id number] Univers 08:21:54 09:20:14 Visit Adilia Villalba 350.1.13.10 it[place] of [place] [phone] Ga dical nal 204 [facility] 2018-10-25 2018-10-25 Office [facility] 1.2.840.114 [id number] Univers 09:31:04 15:21:39 Visit Rian Villalba 350.1.13.10 ity of [place] [phone] Ga dical nal [address] Building 2018-10-25 2018-10-25 Orders Doctor DOMINGO 1.2.840.114 [id number] Univers 00:00:00 00:00:00 Only Unassigned, ELIAS 350.1.13.10 ity of [place] HOSPITAL 4.2.7.2.686 [place] [id number] [facility] [address] Branch 2018-10-21 2018-10-21 Telephone Irasema [facility] 1.2.840.114 [id number] Univers 00:00:00 00:00:00 , Domingo GROSS 350.1.13.10 it[place] of [place].2.[place] [phone] [facility] AND [place] [address] Branch DIABETES CLINIC Results Test Description Test Time Test Comments Results Result Comments Source POCT GLUCOSE (AUTOMATED) 2022-01-04 17:13:35 Test Item Value Reference Range Interpretation Comme nts POCT GLU (test code = 3898232842) 181 mg/dL 70-110 H Lab Interpretation (test code = 59943-7) Abnormal [facility] GLUCOSE (AUTOMATED)2022-01-04 13:28:38 Test Item Value Reference Range Interpretation Comments POCT GLU (test code = 5470477313) 188 mg/dL 70-110 H Lab Interpretation (test code = Abnormal 97650-5) [facility] GLUCOSE (AUTOMATED)2022-01-04 01:19:44 Test Item Value Reference Range Interpretation Comments POCT GLU (test code = 8018276842) 158 mg/dL 70-110 H Lab Interpretation (test code = Abnormal 65845-6) [facility] GLUCOSE (AUTOMATED)2022-01-03 22:24:45 Test Item Value Reference Range Interpretation Comments POCT GLU (test code = 3076274068) 182 mg/dL 70-110 H Lab Interpretation (test code = Abnormal 91364-2) [id number] 20:59:04 Test Item Value Reference Range Interpretation Comments LDH (test code = 2552392030) 151 U/L 120-246 Lab Interpretation (test code = Normal 86662-3) [facility] METABOLIC PANEL (NA, K, CL, CO2, GLUCOSE, BUN, CREATININE, CA)2022-01-03 20:59:04 Test Item Value Reference Range Interpretation Comments NA (test code = 134 mmol/L 135-145 L 0099260248) K (test code = 5.3 mmol/L 3.5-5.0 H 8612657553) CL (test code = 108 mmol/L 98-108 8194593753) CO2 TOTAL (test code = 20 mmol/L 23-31 L 7266397547) AGAP (test code = 2-16 9193980424) BUN (test code = 25 mg/dL 7-23 H 2230027729) GLUCOSE (test code = 150 mg/dL 70-110 H 0463450496) CREATININE (test code = 2.42 mg/dL 0.60-1.25 H 0678011794) CALCIUM (test code = 8.7 mg/dL 8.6-10.6 1206093701) eGFR (test code = mL/min/1.73m2 7601964274) JULEE (test code = JULEE) Association of Glomerular Filtration Rate (GFR) and Staging of Kidney Disease* + --+ --+ ------+| GFR (mL/min/1.73 m2) ?| With Kidney Damage ?| ?Without Kidney Damage+ --------+ --------+ +| ?>90 ?| ?Stage one ?| ? Normal ?+ ---+ ---+ -------+| ?60-89 ?| ?Stage two ?| ? Decreased GFR ? + --+ --+ ------+| ?30-59 ?| ?Stage three ?| ? Stage three ? + --+ --+ ------+| ?15-29 ?| ?Stage four ? | ? Stage four ?+ ---+ ---+ -------+| ?<15 (or dialysis) ? ?| ?Stage five ? | ? Stage five ?+ ---+ ---+ -------+ *Each stage assumes the associated GFR level has been in effect for at least three months. ?Stages 1 to 5, with or without kidney disease, indicate chronic kidney disease. Notes: Determination of stages one and two (with eGFR >59mL/min/1.73 m2) requires estimation of kidney damage for at least three months as defined by structural or functional abnormalities of the kidney, manifested by either:Pathological abnormalities or Markers of kidney damage (including abnormalities in the composition of the blood or urine or abnormalities in imaging tests). Lab Interpretation Abnormal (test code = 79587-4) [facility] GLUCOSE (AUTOMATED)2022-01-03 17:52:20 Test Item Value Reference Range Interpretation Comments POCT GLU (test code = 2336146011) 180 mg/dL 70-110 H Lab Interpretation (test code = Abnormal 57637-0) [facility] GLUCOSE (AUTOMATED)2022-01-03 13:19:43 Test Item Value Reference Range Interpretation Comments POCT GLU (test code = 1318875265) 169 mg/dL 70-110 H Lab Interpretation (test code = Abnormal 89020-2) [facility]. METABOLIC PANEL (80322)2022-01-03 09:59:15 Test Item Value Reference Range Interpretation Comments NA (test code = 136 mmol/L 135-145 1846902046) K (test code = 5.7 mmol/L 3.5-5.0 H 1305467597) CL (test code = 105 mmol/L 98-108 6950199982) CO2 TOTAL (test code = 24 mmol/L 23-31 2879248465) AGAP (test code = 2-16 2543997801) BUN (test code = 27 mg/dL 7-23 H 8684553093) GLUCOSE (test code = 176 mg/dL 70-110 H 0158461412) CREATININE (test code = 2.46 mg/dL 0.60-1.25 H 1981100117) TOTAL BILI (test code = 0.2 mg/dL 0.1-1.5 3637560814) CALCIUM (test code = 8.3 mg/dL 8.6-10.6 L 4400415680) T PROTEIN (test code = 7.0 g/dL 6.3-8.2 1230371893) ALBUMIN (test code = 2.9 g/dL 3.5-5.0 L 7958528356) ALK PHOS (test code = 130 U/L 34-122 H 3063545423) ALTv (test code = 29 U/L 5-50 1742-6) AST(SGOT) (test code = 26 U/L 13-40 0707253963) eGFR (test code = mL/min/1.73m2 9389696036) JULEE (test code = JULEE) Association of Glomerular Filtration Rate (GFR) and Staging of Kidney Disease* + --+ --+ ------+| GFR (mL/min/1.73 m2) ?| With Kidney Damage ?| ?Without Kidney Damage+ --------+ --------+ +| ?>90 ?| ?Stage one ?| ? Normal ?+ ---+ ---+ -------+| ?60-89 ?| ?Stage two ?| ? Decreased GFR ? + --+ --+ ------+| ?30-59 ?| ?Stage three ?| ? Stage three ? + --+ --+ ------+| ?15-29 ?| ?Stage four ? | ? Stage four ?+ ---+ ---+ -------+| ?<15 (or dialysis) ? ?| ?Stage five ? | ? Stage five ?+ ---+ ---+ -------+ *Each stage assumes the associated GFR level has been in effect for at least three months. ?Stages 1 to 5, with or without kidney disease, indicate chronic kidney disease. Notes: Determination of stages one and two (with eGFR >59mL/min/1.73 m2) requires estimation of kidney damage for at least three months as defined by structural or functional abnormalities of the kidney, manifested by either:Pathological abnormalities or Markers of kidney damage (including abnormalities in the composition of the blood or urine or abnormalities in imaging tests). Lab Interpretation Abnormal (test code = 45888-7) [facility] 09[facility]59[facility]15 Test Item Value Reference Range Interpretation Comments MAGNESIUM (test code = 5411642510) 2.3 mg/dL 1.7-2.4 Lab Interpretation (test code = Normal 12635-8) [facility] WITH [id number] 09:38:09 Test Item Value Reference Range Interpretation Comments WBC (test code = See_Comment H [Automated 6690-2) message] The sy stem which generated this result transmitted reference range : 4.20 - 10.70 10*3/?L. The reference range was not used to interpret this result as normal/abnormal . RBC (test code = See_Comment L [Automated 789-8) message] The sy stem which generated this result transmitted reference range : 4.26 - 5.52 10*6/?L. The reference range was not used to interpret this result as normal/abnormal . HGB (test code = 8.0 g/dL 12.2-16.4 L 718-7) HCT (test code = 24.1 % 38.4-49.3 L 4544-3) MCV (test code = 86.1 fL 81.7-95.6 787-2) MCH (test code = 28.6 pg 26.1-32.7 785-6) MCHC (test code = 33.2 g/dL 31.2-35.0 786-4) RDW-SD (test code = 48.5 fL 38.5-51.6 66797-3) RDW-CV (test code = 15.5 % 12.1-15.4 H 788-0) PLT (test code = See_Comment H [Automated 777-3) message] The sy stem which generated this result transmitted reference range : 150 - 328 10*3/ ?L. The reference r blade was not used to interpret this result as normal/abnormal . MPV (test code = 9.3 fL 9.8-13.0 L 12960-4) NRBC/100 WBC (test See_Comment [Automat ed code = 0717743345) message] The system which generated this result transmitted reference range : 0.0 - 10.0 /100 WBCs. The refer ence range was not u sed to interpret th is result as normal/abnormal . NRBC x10^3 (test code See_Comment [Auto mated = 1993251113) message] The s ystem which generated this result transmitted reference range : 10*3/?L. The reference range was not used to interpret this result as normal/abnormal . GRAN MAT (NEUT) % 78.8 % (test code = 770-8) IMM GRAN % (test code 2.00 % = 9005821793) LYMPH % (test code = 7.4 % 736-9) MONO % (test code = 8.1 % 5905-5) EOS % (test code = 3.0 % 713-8) BASO % (test code = 0.7 % 706-2) GRAN MAT x10^3(ANC) 9.24 10*3/uL 1.99-6.95 H (test code = 3834126297) IMM GRAN x10^3 (test 0.24 10*3/uL 0.00-0.06 H code = 4254660056) LYMPH x10^3 (test code 0.87 10*3/uL 1.09-3.23 L = 731-0) MONO x10^3 (test code 0.95 10*3/uL 0.36-1.02 = 742-7) EOS x10^3 (test code = 0.35 10*3/uL 0.06-0.53 711-2) BASO x10^3 (test code 0.08 10*3/uL 0.01-0.09 = 704-7) Lab Interpretation Abnormal (test code = 18520-9) [facility] 01:21:54 Test Item Value Reference Range Interpretation Comments POCT GLU (test code = 0665425366) 164 mg/dL 70-110 H Lab Interpretation (test code = Abnormal 44279-8) [facility] ([facility]E)2022-01-02 21:52:04 Test Item Value Reference Range Interpretation Comments Height (test code = in 8070957746) Weight (test code = lbs 9670772640) Systolic BP (test code = mmHg 8869463250) Diastolic BP (test code mmHg = 2866685611) Heart Rate (test code = bpm 7555754140) LVOT stroke volume (test 87.70 cm3 code = 7487357570) EF(Teich) (test code = 49.70 % 5993018720) LVIDD (test code = 4.50 cm 7927821519) LVIDS (test code = 3.40 cm 0002097328) Left Ventricular End 47.2 mL Systolic Volume by Teichholz Method (test code = 1440673) Left Ventricular End 93.8 mL Diastolic Volume by Teichholz Method (test code = 8531841) IVS (test code = 1.22 cm 7995934822) LVPWD (test code = 1.05 cm 0627651264) LVOT diameter (test code 2.17 cm = 1578568044) LVOT area (test code = 3.70 cm2 9183490698) FS (test code = 25 % 6041406909) MV Peak E Marlin (test code 109.6 cm/s = 2974798307) MV Peak A Marlin (test code 69.0 cm/s = 0719791440) E/A ratio (test code = ratio 3928170323) E wave decelartion time 0.17 s (test code = 2035415116) LA Volume Index (BP) 33.0 mL/m2 (test code = 9566653445) LA volume (BP) (test 62.0 mL code = 3244794832) LVOT peak marlin (test code 102.8 cm/s = 2437294818) LVOT mn grad (test code mmHg = 3838053673) BSA (test code = 1.85 m2 8543022958) LA size (test code = 4.1 cm 8698661650) LAV(MOD-sp2) (test code 64.10 mL = 7032419238) LAV(MOD-sp4) (test code 50.40 mL = 9683301176) TASV (test code = 13.6 cm/s 5110001733) Tapse (test code = 2.23 cm 6613072131) AV LVOT peak gradient mmHg (test code = 8836192124) LVOT peak VTI (test code 23.8 cm = 9208477966) LV V1 mean (test code = 68.20 cm/s 5454413497) Ao root diam (test code 3.50 cm = 3989446122) Aortic root (test code = 3.5 cm 7277912991) Ao root annulus (test 3.5 cm code = 5430533175) PW (test code = 1.05 cm 0.6-1.8 8466414122) EF - 2D (test code = 49.70 % 98627051) Interventricular Septum 1.22 cm Diastolic Thickness by 2D (test code = 2991056) Radiology Study observation (narrative) (test code = 12273-1) JULEE (test code = JULEE) ?Left?Ventricle: Left ventricle size is normal. Normal wall thickness. There is concentric remodeling. Normal wall motion. Normal systolic function with a visually estimated EF of 55 - 60%. Normal diastolic function. ?Right?Ventricle: Right ventricle size is normal. Normal systolic function. ?Left?Atrium: Left atrium size is normal. Left atrium volume index is 33.0 mL/m2. ?Tricuspid?Valve: Insufficient tricuspid regurgitation jet to estimate RVSP.Trace transvalvular regurgitation. ?Pericardium: No pericardial effusion. Nehemias Jordan MD Left VentricleLeft ventricle size is normal. Normal wall thickness. There is concentric remodeling. Normal wall motion. Normal systolic function with a visually estimated EF of 55 - 60%. Normal diastolic function.Right VentricleRight ventricle size is normal. Normal systolic function.Left AtriumLeft atrium size is normal. Left atrium volume index is 33.0 mL/m2.Right AtriumRight atrium size is normal.IVC/SVCIVC diameter is less than or equal to 21 mm and decreases greater than 50% during inspiration; therefore the estimated right atrial pressure is normal (~0-5 mmHg).Mitral ValveMitral valve structure is normal. Trace transvalvular regurgitation. No stenosis.Tricuspid ValveTricuspid valve structure is normal. Insufficient tricuspid regurgitation jet to estimate RVSP.Trace transvalvular regurgitation.Aortic ValveAortic valve structure is normal. Nodular thickening of the non-coronary cusp. No evidence of aortic stenosis.Pulmonic ValveNot well visualized. Trace transvalvular regurgitation. No stenosis.Ascending AortaNormal sized annulus and sinus of Valsalva.PericardiumT he pericardium is normal. No pericardial effusion.Study DetailsStudy quality was adequate. A complete echocardiogram was performed using 2D, color flow Doppler and spectral Doppler. Patient exhibited sinus rhythm. [facility] GLUCOSE (AUTOMATED)2022-01-02 21:37:26 Test Item Value Reference Range Interpretation Comments POCT GLU (test code = [id number]) 205 mg/dL 70-110 H Lab Interpretation (test code = Abnormal 74236-4) [facility] GLUCOSE (AUTOMATED)2022-01-02 16:09:08 Test Item Value Reference Range Interpretation Comments POCT GLU (test code = [id number]) 135 mg/dL 70-110 H Lab Interpretation (test code = Abnormal 59435-8) [facility] GLUCOSE (AUTOMATED)2022-01-02 12:50:29 Test Item Value Reference Range Interpretation Comments POCT GLU (test code = [id number]) 142 mg/dL 70-110 H Lab Interpretation (test code = Abnormal 96780-4) [facility] GLUCOSE (AUTOMATED)2022-01-02 01:13:09 Test Item Value Reference Range Interpretation Comments POCT GLU (test code = 1657304595) 158 mg/dL 70-110 H Lab Interpretation (test code = Abnormal 23973-5) [facility] GLUCOSE (AUTOMATED)2022-01-01 17:56:07 Test Item Value Reference Range Interpretation Comments POCT GLU (test code = 1021569566) 235 mg/dL 70-110 H Lab Interpretation (test code = Abnormal 22538-0) [facility] GLUCOSE (AUTOMATED)2022-01-01 13:38:57 Test Item Value Reference Range Interpretation Comments POCT GLU (test code = 9747573862) 207 mg/dL 70-110 H Lab Interpretation (test code = Abnormal 26171-4) [facility] GLUCOSE (AUTOMATED)2022-01-01 01:41:53 Test Item Value Reference Range Interpretation Comments POCT GLU (test code = 5058629640) 121 mg/dL 70-110 H Lab Interpretation (test code = Abnormal 73351-6) [facility] GLUCOSE (AUTOMATED)2021-12-31 23:01:57 Test Item Value Reference Range Interpretation Comments POCT GLU (test code = 7450666284) 183 mg/dL 70-110 H Lab Interpretation (test code = Abnormal 52019-5) [facility] GLUCOSE (AUTOMATED)2021-12-31 18:18:26 Test Item Value Reference Range Interpretation Comments POCT GLU (test code = 0894479664) 204 mg/dL 70-110 H Lab Interpretation (test code = Abnormal 60887-7) [facility] GLUCOSE (AUTOMATED)2021-12-31 14:37:15 Test Item Value Reference Range Interpretation Comments POCT GLU (test code = 8559947757) 180 mg/dL 70-110 H Lab Interpretation (test code = Abnormal 44978-8) [facility] GLUCOSE (AUTOMATED)2021-12-31 01:42:24 Test Item Value Reference Range Interpretation Comments POCT GLU (test code = 4668785347) 200 mg/dL 70-110 H Lab Interpretation (test code = Abnormal 65386-7) [facility] (NA, K, CL, CO2, GLUCOSE, BUN, CREATININE, CA)2021-12-31 00:47:25 Test Item Value Reference Range Interpretation Comments NA (test code = 131 mmol/L 135-145 L 1857250978) K (test code = 5.0 mmol/L 3.5-5.0 6924244367) CL (test code = 105 mmol/L 98-108 8563875765) CO2 TOTAL (test code = 15 mmol/L 23-31 L 2884970085) AGAP (test code = 2-16 6246749713) BUN (test code = 39 mg/dL 7-23 H 7589780988) GLUCOSE (test code = 159 mg/dL 70-110 H 4660111905) CREATININE (test code = 4.54 mg/dL 0.60-1.25 H 8488251193) CALCIUM (test code = 7.3 mg/dL 8.6-10.6 L 3817742309) eGFR (test code = mL/min/1.73m2 8722536492) JULEE (test code = JULEE) Association of Glomerular Filtration Rate (GFR) and Staging of Kidney Disease* + --+ --+ ------+| GFR (mL/min/1.73 m2) ?| With Kidney Damage ?| ?Without Kidney Damage+ --------+ --------+ +| ?>90 ?| ?Stage one ?| ? Normal ?+ ---+ ---+ -------+| ?60-89 ?| ?Stage two ?| ? Decreased GFR ? + --+ --+ ------+| ?30-59 ?| ?Stage three ?| ? Stage three ? + --+ --+ ------+| ?15-29 ?| ?Stage four ? | ? Stage four ?+ ---+ ---+ -------+| ?<15 (or dialysis) ? ?| ?Stage five ? | ? Stage five ?+ ---+ ---+ -------+ *Each stage assumes the associated GFR level has been in effect for at least three months. ?Stages 1 to 5, with or without kidney disease, indicate chronic kidney disease. Notes: Determination of stages one and two (with eGFR >59mL/min/1.73 m2) requires estimation of kidney damage for at least three months as defined by structural or functional abnormalities of the kidney, manifested by either:Pathological abnormalities or Markers of kidney damage (including abnormalities in the composition of the blood or urine or abnormalities in imaging tests). Lab Interpretation Abnormal (test code = 56818-0) [facility] GLUCOSE (AUTOMATED)2021-12-30 23:06:29 Test Item Value Reference Range Interpretation Comments POCT GLU (test code = 1098252699) 167 mg/dL 70-110 H Lab Interpretation (test code = Abnormal 26973-9) [facility] GLUCOSE (AUTOMATED)2021-12-30 17:02:55 Test Item Value Reference Range Interpretation Comments POCT GLU (test code = 1720134797) 197 mg/dL 70-110 H Lab Interpretation (test code = Abnormal 43459-1) [facility] METABOLIC PANEL (NA, K, CL, CO2, GLUCOSE, BUN, CREATININE, CA)2021-12-30 13:39:20 Test Item Value Reference Range Interpretation Comments NA (test code = 135 mmol/L 135-145 7424317757) K (test code = 5.4 mmol/L 3.5-5.0 H 7533986998) CL (test code = 102 mmol/L 98-108 3679766997) CO2 TOTAL (test code = 16 mmol/L 23-31 L 0129736730) AGAP (test code = 2-16 H 6143546397) BUN (test code = 41 mg/dL 7-23 H 6191661636) GLUCOSE (test code = 188 mg/dL 70-110 H 7985533018) CREATININE (test code = 4.98 mg/dL 0.60-1.25 H 0271676782) CALCIUM (test code = 8.3 mg/dL 8.6-10.6 L 2818900518) eGFR (test code = mL/min/1.73m2 2801333422) JULEE (test code = JULEE) Association of Glomerular Filtration Rate (GFR) and Staging of Kidney Disease* + --+ --+ ------+| GFR (mL/min/1.73 m2) ?| With Kidney Damage ?| ?Without Kidney Damage+ --------+ --------+ +| ?>90 ?| ?Stage one ?| ? Normal ?+ ---+ ---+ -------+| ?60-89 ?| ?Stage two ?| ? Decreased GFR ? + --+ --+ ------+| ?30-59 ?| ?Stage three ?| ? Stage three ? + --+ --+ ------+| ?15-29 ?| ?Stage four ? | ? Stage four ?+ ---+ ---+ -------+| ?<15 (or dialysis) ? ?| ?Stage five ? | ? Stage five ?+ ---+ ---+ -------+ *Each stage assumes the associated GFR level has been in effect for at least three months. ?Stages 1 to 5, with or without kidney disease, indicate chronic kidney disease. Notes: Determination of stages one and two (with eGFR >59mL/min/1.73 m2) requires estimation of kidney damage for at least three months as defined by structural or functional abnormalities of the kidney, manifested by either:Pathological abnormalities or Markers of kidney damage (including abnormalities in the composition of the blood or urine or abnormalities in imaging tests). Lab Interpretation Abnormal (test code = 35878-6) [facility] 13:32:41 Test Item Value Reference Range Interpretation Comments POCT GLU (test code = 8812239587) 212 mg/dL 70-110 H Lab Interpretation (test code = Abnormal 73627-5) [facility] VENOUS BLOOD [id number] 02:31:48 Test Item Value Reference Range Interpretation Comments PH (test code = 7.32-7.42 8231729871) PCO2 OSIEL (test code = See_Comment L [Auto mated message] 6746670078) The system [employer] generated this result transmitted ref erence range: 41 - 51 mmHg. The reference r blade was not used to interpret this result as normal/abnor mal. PO2 OSIEL (test code = See_Comment [Autom ated message] 9285415524) The system [employer] generated this result transmitted ref erence range: 25 - 40 mmHg. The reference r blade was not used to interpret this result as normal/abnor mal. HCO3 OSIEL (test code = See_Comment L [Auto mated message] 9401260564) The system whic h generated this result transmitted ref erence range: 24 - 28 mEq/L. The reference r blade was not used to interpret this result as normal/abnor mal. AC VBE(BEAKER) (test mEq/L code = 6174708075) Lab Interpretation (test Abnormal code = 77013-8) [facility] GLUCOSE (AUTOMATED)2021-12-30 01:29:20 Test Item Value Reference Range Interpretation Comments POCT GLU (test code = 7372414640) 151 mg/dL 70-110 H Lab Interpretation (test code = Abnormal 62422-0) [facility] [id number] 00:11:19 Test Item Value Reference Range Interpretation Comments CK (test code = 4434390126) 32 U/L 33-194 L Lab Interpretation (test code = Abnormal 35102-1) [facility] GLUCOSE (AUTOMATED)2021-12-29 23:36:58 Test Item Value Reference Range Interpretation Comments POCT GLU (test code = 8022508802) 188 mg/dL 70-110 H Lab Interpretation (test code = Abnormal 28255-9) [facility] WITH [id number] 23:14:59 Test Item Value Reference Range Interpretation Comments WBC (test code = See_Comment H [Automated 6690-2) message] The system which generated this result transmit escobar reference range : 4.20 - 10.70 10*3/?L. The reference range was not used to interpret this result as normal/abnormal . RBC (test code = See_Comment L [Automated 769-8) message] The system which generated this result transmit escobar reference range : 4.26 - 5.52 10*6/?L. The reference range was not used to interpret this result as normal/abnormal . HGB (test code = 8.8 g/dL 12.2-16.4 L 718-7) HCT (test code = 27.1 % 38.4-49.3 L 4544-3) MCV (test code = 83.9 fL 81.7-95.6 787-2) MCH (test code = 27.2 pg 26.1-32.7 785-6) MCHC (test code = 32.5 g/dL 31.2-35.0 786-4) RDW-SD (test code = 48.6 fL 38.5-51.6 56984-2) RDW-CV (test code = 15.9 % 12.1-15.4 H 788-0) PLT (test code = See_Comment H [Automated 777-3) message] The system which generated this result transmit escobar reference range : 150 - 328 10*3/ ?L. The reference range was not u sed to interpret th is result as normal/abnormal . MPV (test code = 9.0 fL 9.8-13.0 L 93370-9) NRBC/100 WBC (test See_Comment [Automat ed code = 3553449548) message] The system which generated this result transmit escobar reference range : 0.0 - 10.0 /100 WBCs. The reference range was not used to interpret this result as normal/abnormal . NRBC x10^3 (test code See_Comment [Auto mated = 0662297620) message] The system which generated this result transmit escobar reference range : 10*3/?L. The reference range was not used to interpret this result as normal/abnormal . GRAN MAT (NEUT) % 84.3 % (test code = 770-8) IMM GRAN % (test code 2.70 % = 1698440122) LYMPH % (test code = 4.0 % 736-9) MONO % (test code = 7.4 % 5905-5) EOS % (test code = 1.0 % 713-8) BASO % (test code = 0.6 % 706-2) GRAN MAT x10^3(ANC) 13.87 10*3/uL 1.99-6.95 H (test code = 5447110279) IMM GRAN x10^3 (test 0.45 10*3/uL 0.00-0.06 H code = 3757302159) LYMPH x10^3 (test code 0.66 10*3/uL 1.09-3.23 L = 731-0) MONO x10^3 (test code 1.22 10*3/uL 0.36-1.02 H = 742-7) EOS x10^3 (test code = 0.16 10*3/uL 0.06-0.53 711-2) BASO x10^3 (test code 0.10 10*3/uL 0.01-0.09 H = 704-7) SCHISTOCYTES (test 1+ A code = 800-3) Lab Interpretation Abnormal (test code = 21901-6) [facility] METABOLIC PANEL (NA, K, CL, CO2, GLUCOSE, BUN, CREATININE, CA)2021-12-29 22:42:51 Test Item Value Reference Range Interpretation Comments NA (test code = 133 mmol/L 135-145 L 0345354917) K (test code = 5.4 mmol/L 3.5-5.0 H 1554536998) CL (test code = 102 mmol/L 98-108 1042447871) CO2 TOTAL (test code = 20 mmol/L 23-31 L 1560989965) AGAP (test code = 2-16 4024568310) BUN (test code = 40 mg/dL 7-23 H 1447905992) GLUCOSE (test code = 190 mg/dL 70-110 H 9550089650) CREATININE (test code = 4.67 mg/dL 0.60-1.25 H 8068242505) CALCIUM (test code = 8.8 mg/dL 8.6-10.6 3036704219) eGFR (test code = mL/min/1.73m2 9608449160) JULEE (test code = JULEE) Association of Glomerular Filtration Rate (GFR) and Staging of Kidney Disease* + --+ --+ ------+| GFR (mL/min/1.73 m2) ?| With Kidney Damage ?| ?Without Kidney Damage+ --------+ --------+ +| ?>90 ?| ?Stage one ?| ? Normal ?+ ---+ ---+ -------+| ?60-89 ?| ?Stage two ?| ? Decreased GFR ? + --+ --+ ------+| ?30-59 ?| ?Stage three ?| ? Stage three ? + --+ --+ ------+| ?15-29 ?| ?Stage four ? | ? Stage four ?+ ---+ ---+ -------+| ?<15 (or dialysis) ? ?| ?Stage five ? | ? Stage five ?+ ---+ ---+ -------+ *Each stage assumes the associated GFR level has been in effect for at least three months. ?Stages 1 to 5, with or without kidney disease, indicate chronic kidney disease. Notes: Determination of stages one and two (with eGFR >59mL/min/1.73 m2) requires estimation of kidney damage for at least three months as defined by structural or functional abnormalities of the kidney, manifested by either:Pathological abnormalities or Markers of kidney damage (including abnormalities in the composition of the blood or urine or abnormalities in imaging tests). Lab Interpretation Abnormal (test code = 32868-6) [facility]09277[facility] (ALB,T.PRO,BILI T,BU/BC,ALT,AST,ALK PHOS)2021-12-29 22:42:51 Test Item Value Reference Range Interpretation Comments TOTAL BILI (test code = 8656828127) 0.2 mg/dL 0.1-1.1 BILI UNCON (test code = 5506011062) 0.0 mg/dL 0.1-1.1 L BILI CONJ (test code = 2256026678) 0.0 mg/dL 0.0-0.3 T PROTEIN (test code = 9415947619) 7.8 g/dL 6.3-8.2 ALBUMIN (test code = 9704111282) 3.2 g/dL 3.5-5.0 L ALK PHOS (test code = 6404069628) 191 U/L 34-122 H ALTv (test code = 1742-6) 37 U/L 5-50 AST(SGOT) (test code = 7158054242) 36 U/L 13-40 Lab Interpretation (test code = Abnormal 10768-1) [facility] 22:42:51 Test Item Value Reference Range Interpretation Comments MAGNESIUM (test code = 7493074582) 1.9 mg/dL 1.7-2.4 Lab Interpretation (test code = Normal 17114-1) [facility]2022-[facility]-27 22:42:51 Test Item Value Reference Range Interpretation Comments PHOSPHORUS (test code = 5885150303) 8.5 mg/dL 2.5-5.0 H Lab Interpretation (test code = Abnormal 73543-4) [facility] CampusLactic Acid Whole [id number] 22:34:59 Test Item Value Reference Range Interpretation Comments LACTIC ACID (test code = 1.73 mmol/L 0.50-2.20 8771383607) Lab Interpretation (test code = Normal 69692-8) [facility]12 Lead ROUTINE [id number] 20:01:45 Test Item Value Reference Range Interpretation Comments Lab Interpretation (test code = Abnormal 51479-9) [facility] WITH [id number] 17:28:40 Test Item Value Reference Range Interpretation Comments WBC (test code = See_Comment H [Automated 6690-2) message] The system which generated this result transmit escobar reference range : 4.20 - 10.70 10*3/?L. The reference range was not used to interpret this result as normal/abnormal . RBC (test code = See_Comment L [Automated 789-8) message] The system which generated this result transmit escobar reference range : 4.26 - 5.52 10*6/?L. The reference range was not used to interpret this result as normal/abnormal . HGB (test code = 9.6 g/dL 12.2-16.4 L 718-7) HCT (test code = 29.1 % 38.4-49.3 L 4544-3) MCV (test code = 85.6 fL 81.7-95.6 787-2) MCH (test code = 28.2 pg 26.1-32.7 785-6) MCHC (test code = 33.0 g/dL 31.2-35.0 786-4) RDW-SD (test code = 51.2 fL 38.5-51.6 46687-0) RDW-CV (test code = 16.2 % 12.1-15.4 H 788-0) PLT (test code = See_Comment H [Automated 777-3) message] The system which generated this result transmit escobar reference range : 150 - 328 10*3/ ?L. The reference range was not u sed to interpret th is result as normal/abnormal . MPV (test code = 9.2 fL 9.8-13.0 L 90102-0) NRBC/100 WBC (test See_Comment [Automat ed code = 9742107818) message] The system which generated this result transmit escobar reference range : 0.0 - 10.0 /100 WBCs. The reference range was not used to interpret this result as normal/abnormal . NRBC x10^3 (test code See_Comment [Auto mated = 8617367373) message] The system which generated this result transmit escobar reference range : 10*3/?L. The reference range was not used to interpret this result as normal/abnormal . GRAN MAT (NEUT) % 81.7 % (test code = 770-8) IMM GRAN % (test code 3.30 % = 0813124251) LYMPH % (test code = 6.4 % 736-9) MONO % (test code = 6.7 % 5905-5) EOS % (test code = 1.3 % 713-8) BASO % (test code = 0.6 % 706-2) GRAN MAT x10^3(ANC) 12.16 10*3/uL 1.99-6.95 H (test code = 0500779546) IMM GRAN x10^3 (test 0.49 10*3/uL 0.00-0.06 H code = 2892495382) LYMPH x10^3 (test code 0.95 10*3/uL 1.09-3.23 L = 731-0) MONO x10^3 (test code 1.00 10*3/uL 0.36-1.02 = 742-7) EOS x10^3 (test code = 0.19 10*3/uL 0.06-0.53 711-2) BASO x10^3 (test code 0.09 10*3/uL 0.01-0.09 = 704-7) POLYCHROMASIA (test 2+ See_Comment [Automa escobar code = 34585-6) message] The system which generated this result transmit escobar reference range : 2+. The referen ce range was not u sed to interpret th is result as normal/abnormal . Lab Interpretation Abnormal (test code = 08343-5) [facility] [id number] 17:10:39 Test Item Value Reference Interpretation Comments Range TROPONIN I (test 0.004 ng/mL See_Comment [Automated code = 6527029306) message] The system which generated this result transmitted reference range : <=0.034. The reference range was not used to interpret this result as normal/abnormal . JULEE (test code = Reference (Normal) JULEE) Range (defined by the 99th percentile reference limit): <= 0.034 ng/mL Note: Cardiac troponin begins to rise 3-4 hours after the onset of ischemia. Repeat in 4-6 hours if the sample was drawn within 3-4 hours of the onset of the symptom and found normal. Diagnosis of myocardial injury is made with acute changes in cTn concentrations with at least one serial sample above the 99th percentile upper reference limit (URL), taken together with the patient's clinical presentation. Biotin has been reported to cause a negative bias, interpret results relative to patient's use of biotin. Lab Interpretation Normal (test code = 40438-0) [facility] CampusType and Screen - ONCE [id number] 17:07:02 Test Item Value Reference Range Interpretation Comments ABO & RH (test code B Positive Performe d at [facility] = 20) Laboratory Serv [facility] [address] [place], [place] [address]Toll Free: [phone] A No. [id number] IAT (test code = Negative Performed a t [facility] 1185) Laboratory Serv [facility] [address] [place], [place] [id number] Free: [phone] A No. [id number] [facility] CampusCOMP. METABOLIC PANEL (43909)2021-12-29 17:04:53 Test Item Value Reference Range Interpretation Comments NA (test code = 132 mmol/L 135-145 L 2347611832) K (test code = 6.6 mmol/L 3.5-5.0 HH 7104345430) CL (test code = 102 mmol/L 98-108 6424868747) CO2 TOTAL (test code = 15 mmol/L 23-31 L 8584364509) AGAP (test code = 2-16 4805698507) BUN (test code = 36 mg/dL 7-23 H 2601470578) GLUCOSE (test code = 221 mg/dL 70-110 H 3418577340) CREATININE (test code = 4.07 mg/dL 0.60-1.25 H 3447414204) TOTAL BILI (test code = 0.3 mg/dL 0.1-1.8 6785562072) CALCIUM (test code = 8.8 mg/dL 8.6-10.6 8469140205) T PROTEIN (test code = 7.1 g/dL 6.3-8.2 7506048343) ALBUMIN (test code = 3.3 g/dL 3.5-5.0 L 3514509752) ALK PHOS (test code = 188 U/L 34-122 H 7918024331) ALTv (test code = 34 U/L 5-50 1742-6) AST(SGOT) (test code = 27 U/L 13-40 5995069581) eGFR (test code = mL/min/1.73m2 5796570990) JULEE (test code = JULEE) Association of Glomerular Filtration Rate (GFR) and Staging of Kidney Disease* + --+ --+ ------+| GFR (mL/min/1.73 m2) ?| With Kidney Damage ?| ?Without Kidney Damage+ --------+ --------+ +| ?>90 ?| ?Stage one ?| ? Normal ?+ ---+ ---+ -------+| ?60-89 ?| ?Stage two ?| ? Decreased GFR ? + --+ --+ ------+| ?30-59 ?| ?Stage three ?| ? Stage three ? + --+ --+ ------+| ?15-29 ?| ?Stage four ? | ? Stage four ?+ ---+ ---+ -------+| ?<15 (or dialysis) ? ?| ?Stage five ? | ? Stage five ?+ ---+ ---+ -------+ *Each stage assumes the associated GFR level has been in effect for at least three months. ?Stages 1 to 5, with or without kidney disease, indicate chronic kidney disease. Notes: Determination of stages one and two (with eGFR >59mL/min/1.73 m2) requires estimation of kidney damage for at least three months as defined by structural or functional abnormalities of the kidney, manifested by either:Pathological abnormalities or Markers of kidney damage (including abnormalities in the composition of the blood or urine or abnormalities in imaging tests). Lab Interpretation Abnormal (test code = 76137-5) [facility] CampusLIPASE, [id number] 16:58:35 Test Item Value Reference Range Interpretation Comments LIPASE (test code = 6635477350) 729 U/L 0-220 H Lab Interpretation (test code = Abnormal 21853-0) [facility] GLUCOSE (AUTOMATED)2021-12-22 18:55:56 Test Item Value Reference Range Interpretation Comments POCT GLU (test code = 5747170974) 165 mg/dL 70-110 H Lab Interpretation (test code = Abnormal 17253-5) [facility] GLUCOSE (AUTOMATED)2021-12-22 14:30:10 Test Item Value Reference Range Interpretation Comments POCT GLU (test code = 8962585319) 202 mg/dL 70-110 H Lab Interpretation (test code = Abnormal 40853-3) [facility] GLUCOSE (AUTOMATED)2021-12-22 02:17:49 Test Item Value Reference Range Interpretation Comments POCT GLU (test code = 0307362168) 192 mg/dL 70-110 H Lab Interpretation (test code = Abnormal 06604-0) [facility] GLUCOSE (AUTOMATED)2021-12-21 21:50:16 Test Item Value Reference Range Interpretation Comments POCT GLU (test code = 3408843139) 191 mg/dL 70-110 H Lab Interpretation (test code = Abnormal 72822-9) [facility] GLUCOSE (AUTOMATED)2021-12-21 16:46:49 Test Item Value Reference Range Interpretation Comments POCT GLU (test code = 0493588684) 160 mg/dL 70-110 H Lab Interpretation (test code = Abnormal 78857-4) [facility] GLUCOSE (AUTOMATED)2021-12-21 13:42:34 Test Item Value Reference Range Interpretation Comments POCT GLU (test code = 0512198318) 187 mg/dL 70-110 H Lab Interpretation (test code = Abnormal 62738-5) [facility] GLUCOSE (AUTOMATED)2021-12-21 02:40:22 Test Item Value Reference Range Interpretation Comments POCT GLU (test code = 0920241984) 235 mg/dL 70-110 H Lab Interpretation (test code = Abnormal 75109-4) [facility] PATH[facility] [id number] 21:21:33 Test Item Value Reference Range Interpretation Comments Case Report (test Surgical Pathology ? ? ? code = 3457212545) ?Case: [id number] ? Authorizing Provider: ?Domingo Driscoll MD ? Collected: ? 12/12/2021 1042 ?Ordering Location: ? ? [facility] OR ? Received: ?12/12/2021 1327 ? Department ? Pathologist: ? Em Moran MD ? Specimens: ? A) - PERITONEUM, peritoneum mass ? B) - COLON, SUBTOTAL COLECTOMY ? Final Diagnosis (test q9ihjSHnYCNkx8uaBMVmkCZj code = 4148877883) ZzEwMzNcZnRuYmpcdWMxIHtc yyMiUNbaeOldFNRuCORxEN5u jMzewXy4aVnaHXXwdwA9mWTo NQmnr7mbXWY0u1lgipduAJEd MKqeGx6ykYAlmNyoOdAkABAc OFa3yS30ZXHdcW4etKPoLUxv rmLoIOrcjrDztdOcEvn4ABU7 sOeyCGNaxltbWkR8IFmnMPIo xjkqTNl0BEsnYZBfiGB9LJIn oMBsG5QuLWCtSJ4rcno0NPJ0 HPghGSJxNoB5LQPykUNeXBVu rKudXFeue524PMM2EeMwBMGw ymEzqEburP7kMgTsKEurACKv KK7oGYEGYDMWEgVPURxhLEON VcbyBJqKLNAQZ423VJPjepTx CUFnLB5pOZ9TIHWVWtXlSUCC Dm6XQDWFMH2YLTCbJRAYGuMM T4TNTxUgQ4fDHOMNC9uWNljT OR5QRLeUHoyiAVCikVVyOFXk LGDRTO9LIVZWKTSAC7UVEJCR F0yFT3DQRDz9DHEwdsLhYYLv IP4zDL3CVWWKGrNwWNPGYe8B DKNFST2GZCDkJK5XSTLERLKK HIdmNAuEPwYOOS8BFJPHHUUp WYdHFm3BYkgBWbMCMWLKKO6V E7KVCbZSDpnlRTFazwDtDPTp FAPcLPWPUA4SVYTJPQISXXuH H1wJAKHZJY4IMVeuYAPtOOSp ICAgICBccGFyICAgICAgICBc GvVeQZ3POFUDBiZiNOZUPv5P LLWJLL7YRMLrTS0dQ7JOXF8i AAICJO9RBE9XLMBEMM9GDuev YXJcYjAgICAgICAgICAgLSBU JT0WNpYDTUWWUSVJTkVxXBGE TYIPYqPWHdMZFWYAFPPEDO3S MqYLH98lqRLhIPOgGBPbHWPd ST7fYVUJM8GcZW9ZVWNEDmQK ZWKPKRsEXY9SA8ZFDXKFYSHn UFJPUFJJQSBJTlRPIFBFUkkt O80CO31HYlOOTLqSL8UYMCVI T2YOVYfgYNGmJAWtBALmOFAd BRQJANHBS1WJE57bTIPSF9iG UsSBUDvYWRgSGXRXX8TzR5BU D4zJB92UFCYpirwpBEHzXDBa MTYzCXivLCQARqICK7kYHWNP HUCVZ3ARHsKIBy0MUMPSCvDW ZZtKP2xHZZLQZY9TItkiBCCm ImLfDEHrOHLtOLSrPBLRJT0L KlBLCRHRJYXTUtG2VyVvS01y NP9kE1QURMMNP2NdKLfCDI3B QO1AVGHtumUaIYMvKBKdQAMe ZGXCMX2CZIxUFbEHAPJaNBgU P2YPLQKWFGHFJOGRXB4IMYUp TIFILV1FMSXGCANVHHQxXP8M YHfVXmAIABOiKajRN9FNVOjm XHBhciAgICAgICAgICAgICBQ GXEAVH5PBKJDEKmRWLaKEOJT MjEpXHBhciAgICAgICAgICAt GLFQM4HVAWbFShMZZGFFNW8L PA2UD6IZAPEBLEORZwDXOWMZ DZ9EQABvxALsEQLhehHuNZAb QY4xAXyURIqGJyLHN6WUGGSf FN1VAMFMW41aEG7BUOMCL50q SURFTlRJRklFRFxwYXIgICAg WMZsCS3MQISRMmjZQWXQHHit QO9WCEMNW87aTRILHvFCOcxF RFxwYXIgICAgICAtIEZPVVIg N0TRFU5LYOTPSjBDPQGSEgCA YM3MUDDHB5JFEyXKM4TGDMlE HZNIF9XvFSXKSFIKGMVDGsUE GLBJM9NHPbFFSk0UMSUlRG8z NylccGFyICAgICAgLSBUSFJF CQLPODSYOZNVVXFNJK5YLNAH EKIeaqSpEUUtPC6yKcFGNQsI IEFQUEVORElYIEFORCBJTEVB TCBUSVNTVUVccGFyXHBhcmQg DAXzRPRpKWECPA1KGCHPUArL OW0IYTIuA3OWK9jQLkMfNSyP NyO6AWjlKTLlZnBsnYenCRXt DFUZXnHzkX1wQyXxmKRcGUYs GPIaTCNBILFhR0wAC0BRIPJd OyXVC6ZKCUJoixygWbCadKYq XGNmMCBGYXJlZWQgUmFqYWNr FLNCPYXjFO1kEw0xZdnkEYb4 XCSTWY5aqHTgJFPxBCiuRGK1 l1npxRVeDUPavZWwBrHsCIPo UFExe3atZMNpfFNvEgNuYgGv CbLnRiuzoNUvSIImNgLea5zg v507sPVjh7feZVSyAwD2hBDe VPDxlXdvgdb0vRqbMlYlRPFu i7cvohHlSnYjESUiEXFbFNSz yHTyT316OHHlXXnao4yra4Tt SRVhbLNhb0R8APIOPLhnQpEo D990x7wuw6lcxlMpzJN1PWBj AJM0VGzkioQwnpQ5IZrdtQGf GtA5ZLsbbqZwBNlongNejcVd Lmh8KYQnM838NRL7dXrmd7vk KJW2DKWvALTcRlgjFj9shBRs T879TMBnXIEAOTUfiOk4QAIi axCjedMpoXXOx979D621s4rb TYGxtpQgbNlXmelwc3gbR957 XHBhcGVydzEyMjQwXHBhcGVy tDK6YTYoLK1mcrctLZlhIFra PRXeacL6LHUkoHTtI2RvZLLf BQ6ooqexJLM6XCfoUAEyPZW2 AwQsRLKdn6Avoqg0UbUhob3e tf26XKB8d6BlrAnhUPS9XPH2 IpMxEk1fsEIoMYCrVE0uZgGe zCVzNWDulq86oTeyJQmdqpOf tX2nNyBcCPSjjSZnLSXfYZ2u xCDvWFOnlK2migqsMZKfHvHk otzcJBQhoQgjxcAgFy6bgRim XNO1RPjfD5yroU9sRjH4HAoq N0dpuG6pVSf1AWbhhNE3ECQo fU3zUO2uzzgdv0quPVdjDOvp DNHoecY9owL3GDHpqJSqS2An qH8oHNOvVK8oreyhw7gpRTX7 KRuqFOEhAID4BzAyOZVyb2Cv arx8OvKjo0QroQFuFTfpK08e y754KMXutlDgK1xhhFDxmxhw dHBpfpteFPtbivW5YITyCWYl YWluXGYxXGZzMjBcbGFuZzEw MzNcaGljaFxmMVxkYmNoXGYx IXtbZ2jtWnEiD8GmIRLuIbCz mOQxXXiwtFN2BLTmZUQqd89t qQx0EJRoqqfkn1MrDQExdEOo qLNukM1diyGkh0gaJOSrXSRl KUHiA5PoNSY3hIAfEXUnlUFa jVA0CT0nkgHgKK4qKCDuOqvb sfHbqOInsjQzIAIkVMukx3am YD8fCHBynCkerO3exYG7ECZw f5wkcFFlbGGcu4jxd4NznoEl SQmeKKLtKZypDFGsGNUqXD8k POAdqOCxpoUfg6M7CmwzcIWj zgaoMyxbobY2DAlnfsdgRMYf IDenC0fyQhXiZCWmpQcxNbov q2RsWJKbCVJcPiaamLRtyD6= Clinical Information H/O Stage IV Colon (test code = cancer with GI bleed [id number]) Gross Description o3eiiCIlZJOwwWXqPLImR7br (test code = fwFmFCXjiKZtE6JcaztxPNoj [id number]) KY2fAT0meDgfoOQaaZKoLSYu AlOzd7men901gKYgt2qtHNCO jgsjpTk6yBrzT96wk9V6Qjld C22ryKYmMVZ6XUSuPZPenWBl EJWxKJN2JCBnmGLbZ6azHLKy HF5iplskXAqcKYmgPPHjwTE3 JTYcrABaX2SlSNLoICcqKWRm hgz8EpOvHk6eiJZbcCbqHNfs LtogfWgwc7QxqUOzRWgfUYPc IIJhIJkroxkqTRy0PIKeNZsq wZRzCG4ogRaeIzekyHhix4Iz dCBcXGlkIDUxMDAwIFxcbmgg AWu3QJBvLOihyPSxVH2tiKsx RahfkZyai9HrcYGbOBcqGHKi IPQcVAqrMOJaI8GUTOEzKiv1 HvY6QFDhVJr0RLzsM3PNJDQe WCBzNoQ6MUt1GrY3FLp2ZGSI En8jZHY3ZQzbOrj4RQF8VOLn OCBcXHQgMiBcXGZsIFxcZiBB cmlhbCBcXGZzIDEwIFxcbmN9 TKPhyuNuhFckaL7lCgBtSXMI ZCAGFO7MCsJCPLNsvdytxvXy IFNwZWNpbWVuIEEgaXMgcmVj OSf4SVJyYcYdq5rjvAGkMGms YVO1lQDsMUWvLBGiQERkVL60 ADQ4ZyR0BMovIKPrMA2srTSp RZXJLB73eDOparcgXVJ4ZrIy TOhjHWTaQCYfkV8oPXLmOX7s u6WwlUmkJqCzOMx7ERZxqfCz H60ij5pkzRJlt5RdKOTzsEEh RSSwGdXxHMAqvN7eMXFhOWsz pRedHWRrYFIzREy7BvSiI59j hZ5aiRVkX8YhWWvcRi62YUAv TXchSAntGACxNP6kSKzqHX0l a6GosAzcbqTabfGfz5vmcgce jGGdZVc5uAZeXPN5jbDsY5Rn MRSvXPS8DZWaWABxIwzyG69u WvOITMChPLjkv5OwlZoftbqk FfQowQ40fK1sPSaezSweyaUg n0C8pYA1TUKmlRSjxDJgbjI5 wTRqjjMwDsyboZX9tZx1DIWy KXVfPLO3yFCppAIeIJKfwf0z cGFyICBSZXByZXNlbnRhdGl2 PHTvERF7hG5adhJtglYvl1Wk dTt0wWDgZYziIKAil7laeLmj z2EeeHJzEMvnOEJrmDSoUNrr fQ8yLdJad0cdqPv0HKmmwqK6 WKAmdo78ZYbwCXJrF7TxW6Bq GWyaPAR8IHOtTpFiIXYfVZ7O QiBiKAW8KGKsWRzaWFl1HBa2 EN4ZTdOwGCWqKEXmAAmoTGBw QJy9OBlmUA6FQSO6DZG5UKe6 JspgCERfRaokQZg0EZWiWWvc bCBcXGYgQXJpYWwgXFxmcyAx NJVrBL0llQrdorArHBQBNGIG DFAYBOZgvWFmNEUrJrSmR7Mh M6tfLR4sPmQphwLaQISgfVEt ZCBmcmVzaCBsYWJlbGVkIHdp dGggdGhlIHBhdGllbnRcdTgy HAaoIAx4QaOtnxOaYVscMUkt bnVtYmVyLCBcdTgyMjAgXCc5 P7T0IjNznBPyLLVecMWquR1v uRd7WHZlFVIePsd6DPTbMEIi k42qjMW7qlZdZfLkMTR1OwWp vYEeXQJipAWfyH5xfIHrv75u pUF2cA4hRL1fHHZgbd0virZe AAagNZZyIPz8UnCxB17iqJ3i uEFcR0AhWLyoTU45QUVqIDmp WXDyII1reJWnVTrrR28ji18r ULk1HdAkR77plF5bdBPiX6Yu YHglGX3hJIXiRDntRIWgPP4u eMKaLWDzduOqUKVdKM0pqYdp WNpoBDA5BRZhVQA5NDLgBjOm kYamQAMjFBOyEQWgf7FwYID2 raEzS4QygMMajKLwOTGatqnw HQ4wBDKzf188qKYojxKbWc6i DEwxzZJsQHq5iYQeGVXxifUe erPbH9wet8MdyM5dxGumWUzf v4lfbmMnAKFeYYUpoJTerX0q siJvzqMgxFJySFLyzX8doeY7 FUAjWGFeahEjXlXzt26sSDKk Z0SpIEZtxbFucFXojD4jDOko lHrprgJyx0DjLSYnifHiroUs WPFzMlKiqJK1QwYrB78fBHhh dGGzKEonEMaqR3E1YCTuw3c0 bOmhYSInFBAmUMD3pTadXAD6 eZZluwalnZegTLnzWO5bSYEd vWU1CEn6HD9lZEhyGLfnf7zs mrGgd93seyX5bILvuN3lBh9l NZRyJO3vFWOgLMZwot85aX9m nQU4GBXuiB9zgZRhiFE1kVYb POJlN7Poj72pbGMmU0soOLHl BYM6Da2bUXVuZM6xXFTqGDMd wDW3YZdiqpWsJVV8oS5yDC4w kwmsrz7eGHhmHIWogf0cCMEn roQeVCHzrB2jRBZ6rDVrkBEq rR3kWFAuvXhnIlL3kSBnnISj eC7hCAdiNDtgt9IkWNBoCIPw BPTnVQB1uYUrfNHtmS0zSDbk OYIdsqclmRs5UQVwL1Zfa60h ZOM9reHmUDDxMFmwTZOcoeTd mTXmmIQ1kNvlo99jx5Edk5Uz Es2gDOXkTXggrGIuARkzq8Ai uTkvsA66NPVigzEcirRgYAYk OKO7lpYaysw5gA7vXVLjfFTi k3MubOznc6KvGNIwoAolSnI9 pKEjaZ3uYU5gWGAfBT5hWLRh NWRrdyjwPAYpPTDko0OcHCY0 dmEqK9XnYVhoIBEmzIQoJLFe PNOlJVoeSNGcm3JwYMXiaZpa hggiwVapOOMggYy5YMIfDCEh h58ae9b9xVNtDHuwSMEoPy3a IZAbijUgVh18UHjkHe8eXDPp VQE2hTtdgQEabaCch8RyyYEg FRlcuWiamrE3kXSqf3odrS5d KXWzm6iint6uOSusVMoao7ky ssVkc80mpaM0nVLekJ4cCs06 OWScCU4qCCVjFFCrcRI5WKvh ltMuDMP7nY9wQB1wehdnnqVu bmQgOTEuMCBjbSBvZiAgdGhl MBShk3vziBKnWSSqmf4mwyTi AFacOSSrAQLby8ObtUkjorSn FNYilA5cUTDhJITuCSMzw4Cy TC5gTQJsnTXse8QpuYkfd7Jx IHVuZGVybHlpbmcgdGhlIGxl k8ladaXoelNucuseVCDfsFIb pdYmbrUtqLlmGFwoi0uyffSn shMjXTThRHwqxKYgAZV1bW0c BDBvlB5howV9VQTrDQVaS5Li TTLsv8UopFgmP4fwKEGsPH7d YXHvNZWnhIT2xMljeXCrhh0o q7b0OImokwQaKMSvxF59qxC4 jUFxaT9pHJVxtYvjOlGlNDhh k7WhIHYjl2B6ERRhe55cpzxe v8t7gAyaGGXuSuTtiATyJwV2 eBHxeP9rJRPev7Llv6MpgUDr dXJmYWNlLiBccGFyXHBhciBU aGVyZSBhcmUgdGhyZWUgKDMp FHHjJORsC1JzJDWsESTrl9k9 bMTauJ1abS16TApdBQNxrlV5 WMdwSQSxI0PaLDvaVxZsw7lh gqCyHS01NUwzAO75PDYkAEhe GL4frAqrkwMxBIB9uhO5lNR2 NUEwdM2dnZLhwQ9hbDJaddE2 ZHTmRJJtp5pucaUsWA00KDjk FG74UZBhVNkhj32aSH3laaCy aOPnuK2unPnvwDTmBOAcvOfc OKxbKWXxq5GkzkSurrcfF31a j93wHIIzLtB2RFWxNDZngVqp KFCsWNMuPY0rfC1xzxshpADt k1DdJRogAAMxg4vskyahwQRn NGQlaajwQU1iJAjey4EwoFpd sX4sQS3ntydsYoqmBhFQmGKq YUQrDN3dzKjzhIVdl4TvcAPh fFiqd6WcwYecqwPsNVGxUAIi rqGbyIS2QN5fyDncnaQapi1q b6r1LFXtjeBlQYXpZDPpIECd hWDrk9AkPiOiICQoSLtfWRYr sRVyLSHbCOTtkNHaaZ0yytSc gdRqMWbpUBCxRDRoc8DcQbEo zFfefHjxzr9fFVGxFE4dlVTc dGVzIHJhbmdpbmcgZnJvbSAw WpUhBZ3hMCYdHWjdWCybQYT1 TAR1ATUxcSUsa8agak9tBSVp rrwvUCKvXdXgnfUaDB96LMSa ifQib3TwiIdpquBdFTYgWGC4 Xi3qwTQjTYVutlGORU2LWjAj NNveHEMapUNuEOZuM2Bau70x O71oPBgdpOUjTJDrYdLPv8Hd hoVwoyqqK39kl94reX0hjPZu XCIil7QjqECxPGDjyfYyfnLe mXvtBXOuMxT0XEBtHG1vinUa p8VkO09yb42znI0zvSIoJJYs x2IhfZZcGUDzgjDkfySvsZtx NCQaOjT3ATWvk5TrvjVvrrvl G50ot73wzZ1muVJyLADzj3Nd dGVkLCBlbnRpcmVseVxwYXIg MdY2MUBxo9xcjUIzXJLhjy4h kpEqAMqpWQWnGASse7TiwBnr soItKOGxcK2uEXWbLWUyC3Bi sEYiPFM6FyENnUK4OAgmM75v m20mvmKfLCC4fZ9aSE6ofdpn puaqKN8bJsNgAYsrDBGlGeV8 GU0aw8RhxDBfcLIbpTQtJ0xq LCBlbiBmYWNlXHBhciBCNzog QxNnuPU1pWeab45rg4Aba3La gMiwmeTdZuLwGICyp38uZZYp Y1ZhNMAdusMESBceIsDdbAK2 jXlcq34sn2Peq5AgnNmoycPh VqJkBFOal47xESXvQ8KfYHXy uzMRHJdtCeKqsRT1wMzvj21k g3Ogh8KtxEaftxUvTqLiDHZd r87dVGFaD8OiPONwdiCRYGW0 MFY5kSlnxGeeD5toUXTfDMAz F8Shs05gc3CzqSSlnH1iZVXi XFN6mLlhVMJiHsShJwRLvYfa VIBeeFDxrmOoahPcLHZ0mL3t EQ6iZJuis2zcqppgE7RscO4y bPYfKRFbRnhuFkEoeJL8sTjt w34ls5Mlo8VdtMplnhXbEgMo RKQju49zHRLuJ9RfXANcmnLE JQN8NFxyb5qlnsK7yhLcbFT0 GZsyuCIoy3KjNZZzWGL6kUzc lgQnrdIcMC86YFRfnmFgjGWu TXRnOS7JGJU7NLViOQg4qB2b FAmoNaKnrYF8qSlrt45pm8Fu k8AghXrffeBvWzFdSCJtw85j TLFeK5QjRAZbzoOZBRG6HNgc j1WpmQwfoK7yUL4lctsxGffp UMYzhu1wilKyIDzcVHCoKOHg ZDFpWWHcmkObjNg9YCCazPDr GOCmVhmlC9Mym2KekSF0dqGk dNRvh4UvvMOtL52ft93vISJg iCHma3OlhRM2tKIcDRqdAFFk VhV6KhYEwGGmnpRpiQalmsIr ysOvNX87TBHajbMexIYsFQAz PWhtFUPtNN9sxBkoZXPomXGo f2XypFH9sGRlWCVfztPHVjM1 EUOgX3Kgt36wk1LqsQUomT4p MKLevDfpb4zuXESngU2oMXcl xCAciRDaaL1yPQFuSUPngP4n dLRdsDSbi7UxOUpdEUMvViVo PpTYIZW7mO2sKI7pZVlis9vv jtepz5bcwY3oKXDzb0revjZe qIuoLAdtg8ohfcQ5wbBqBGSo q2JfSACrotJEWgK7XKFhX9Ig a50rw7AgdXFfzY7gTQRtmYtp a2kkFNPanL6nWSFlklTPYtD9 AKRsH9Jwr15ug6MakSIixX7q BIWbhSxvv6qlYGVyqK7dOHUe kaLOZlP9SPTbP2Tzg50eo0Iq bBAefW5hTREpiPdip9qdHCEz yG2lKOqncTVepCQqzR7bOJJg QSTuog1iFK5bbQJjASOaLQbc R6AsbRfubiGhTsUcBJImw70s RAHgQ29tyRAsT63ex97pN13z FZ2nPEZiv05sxZ0brCFfQG5n EAOxxuUWZhL9UZDkxDntjMjk xs7cWIKnDT6syKLbbJQuYEX0 jX9aQMqoDHQzUhZ1SqG9SOa3 hZItDV4aBIPfH8LxVKycKBUg qhgfd6ecjSEisYXqEPKaMKng ZmNhaF4ydBObb2EbVZJemlTf JMI1GHMjMThee9wzDWByljUG Zuc9AMZxaJrmyCesrk4tJWJl LL7isLWshWKhFXpfz0kkAOLz ndKEVyG0DLVfhNqhyUoeeo1j ZYCqBI6ziPHgbJRuNQcne4tx YIUrifPTSmY8EKXkaUdojYnt iz8mFAFuCO4qdAQknXVrICjo e7ioTFQxfiECSlU4MMMrbLtk zXttkq5cNYCfBA5qcQCsvPBx KZijw8nmQYBnnmINXrM7WNWg aSbwaRuqvq0rJLBrNG8wwDRj eIQlJJzvc7onXUEvcjmsJAXt VAJfvPzxZU8tK2zfcduvIP3Q IDEwLzExLzIwMjIgNjowOSBQ TVxwYXJccGFyIEIzNDogMyBs tZ3tnSTjc7OeBIUwfnTlGMK1 XXXgYQupg1owMKSbhqRSUuU1 TYKjoFppvTxvuh3lBRGsQE2c aXVhwWBxERR5lX1iLCrdSRDh VyK7ZhWiHFi9tEEhCT4bMMGn L1LcSNbkPTEsvqnnr9dpcCYy cGFyXHBhciBIYWZpeiBBLiBH aGFuaSwgTUQgMTAvMTQvMjAy ScHbStJ5SOGFGSMjytrjDYUt Y8BjL9YhjdS8x7yzbUfbu6Sd mMCcHE61NCUweNFaCRR9FZ2b fVxwYXJ9 Synoptic Checklist COLON AND RECTUM: (test code = Resection, Including [id number]) Transanal Disk Excision of Rectal NeoplasmsCOLON AND RECTUM: RESECTION - All [id number] Edition - Protocol posted: 02/18/2021 SPECIMEN ? Procedure: ? ?Subtotal colectomy TUMOR ? Tumor Site: ? ?Cecum ? Histologic Type: ? ?Adenocarcinoma ? Histologic Grade: ? ?G2, moderately differentiated ? Tumor Size: ? ?Greatest dimension (Centimeters): 10 cm ? Multiple Primary Sites: ? ?Present: Cecum and Sigmoid ? Tumor Extent: ? ?Invades through muscularis propria into pericolorectal tissue ? Macroscopic Tumor Perforation: ? ?Not identified ? Lymphovascular Invasion: ? ?Small vessel ? Perineural Invasion: ? ?Not identified ? Type of Polyp in which Invasive Carcinoma Arose: ? ?None identified ? Treatment Effect: ? ?No known presurgical therapy MARGINS ? Margin Status for Invasive Carcinoma: ? ?All margins negative for invasive carcinoma ? ? Closest Margin(s) to Invasive Carcinoma: ? ?Proximal ? ? Distance from Invasive Carcinoma to Closest Margin: ? ?2.0 cm ? ? Distance from Invasive Carcinoma to Distal Margin: ? ?Not applicable ? Margin Status for Non-Invasive Tumor: ? ?All margins negative for high-grade dysplasia / intramucosal carcinoma and low-grade dysplasia REGIONAL LYMPH NODES ? Regional Lymph Node Status: ? : ? ?Tumor present in regional lymph node(s) ? ? ? Number of Lymph Nodes with Tumor: ? ?4 ? ? Number of Lymph Nodes Examined: ? ?17 ? Tumor Deposits: ? ?Present ? ? Number of Tumor Deposits: ? ?7 DISTANT METASTASIS ? Distant Site(s) Involved: ? ?Peritoneum PATHOLOGIC STAGE CLASSIFICATION (pTNM, AJCC 8th Edition) ? Reporting of pT, pN, and (when applicable) pM categories is based on information available to the pathologist at the time the report is issued. As per the AJCC (Chapter 1, 8th Ed.) it is the managing physician s responsibility to establish the final pathologic stage based upon all pertinent information, including but potentially not limited to this pathology report. ? TNM Descriptors: ? ?m (multiple primary tumors) ? pT Category: ? ?pT3 ? pN Category: ? ?pN2a ? pM Category: ? ?pM1c ADDITIONAL FINDINGS ? Additional Findings: ? ?Adenoma(s) COLON AND RECTUM: Resection, Including Transanal Disk Excision of Rectal NeoplasmsCOLON AND RECTUM: RESECTION - All Civgjyjaf1cg Edition - Protocol posted: 02/18/2021 SPECIMEN ? Procedure: ? ?Subtotal colectomy TUMOR ? Tumor Site: ? ?Sigmoid colon ? Histologic Type: ? ?Adenocarcinoma ? Histologic Grade: ? ?G2, moderately differentiated ? Tumor Size: ? ?Greatest dimension (Centimeters): 6.5 cm ? Multiple Primary Sites: ? ?Present: Cecum and Sigmoid ? Tumor Extent: ? ?Invades visceral peritoneum ? Macroscopic Tumor Perforation: ? ?Not identified ? Lymphovascular Invasion: ? ?Small vessel ? Perineural Invasion: ? ?Not identified ? Type of Polyp in which Invasive Carcinoma Arose: ? ?None identified ? Treatment Effect: ? ?No known presurgical therapy MARGINS ? Margin Status for Invasive Carcinoma: ? ?All margins negative for invasive carcinoma ? ? Closest Margin(s) to Invasive Carcinoma: ? ?Radial (circumferential) or mesenteric ? ? Distance from Invasive Carcinoma to Closest Margin: ? ?0.2 cm ? ? Distance from Invasive Carcinoma to Distal Margin: ? ?Not applicable ? Margin Status for Non-Invasive Tumor: ? ?All margins negative for high-grade dysplasia / intramucosal carcinoma and low-grade dysplasia REGIONAL LYMPH NODES ? Regional Lymph Node Status: ? : ? ?Tumor present in regional lymph node(s) ? ? ? Number of Lymph Nodes with Tumor: ? ?4 ? ? Number of Lymph Nodes Examined: ? ?17 ? Tumor Deposits: ? ?Present ? ? Number of Tumor Deposits: ? ?7 DISTANT METASTASIS ? Distant Site(s) Involved: ? ?peritoneum PATHOLOGIC STAGE CLASSIFICATION (pTNM, AJCC 8th Edition) ? Reporting of pT, pN, and (when applicable) pM categories is based on information available to the pathologist at the time the report is issued. As per the AJCC (Chapter 1, 8th Ed.) it is the managing physician s responsibility to establish the final pathologic stage based upon all pertinent information, including but potentially not limited to this pathology report. ? TNM Descriptors: ? ?m (multiple primary tumors) ? pT Category: ? ?pT4a ? pN Category: ? ?pN2a ? pM Category: ? ?pM1c ADDITIONAL FINDINGS ? Additional Findings: ? ?Adenoma(s) Disclaimer (test code [id number] = [id number]) ZzEwMzNcZnRuYmpcdWMxIHtc biWyRSpbf2HnV7LnScCnDYgr bnNpXGRlZmxhbmcxMDMzXGZ0 czGnTAFvJBseAHBsCFpuTu3i oMBwuFlhGmGkGUUwq0godiGC YSmtFxHnS609LVGzVVuye4yf z4QwHJHpsKBne2I2YPOLnemx aXq5kAmiA07bp0H5GmypH0vi IVAqAUDvJ3VoVY1qIFAoTti4 ITH3EGM1KFAqPTCtQ8EhZY7m UCArmOTkHIe7d2lxdCduJMGe SAU3l5taUTuesmOdSH6cuh1h lGm7z0cpmhRtOGTpSFDtcPWE KEKmX1JfxUlpWe0qgDl4xIha HfbbRTJ1Vei5IB2atp43vyf2 wFglFRRczboqNlO2XIhxSBXc fndnEOf2XVxpBEElnTS8NQRj uZFxR5LdDEKeKJ9icuj4IGE5 VRsrXZWtExE4LFNbrFHzOTMk hFjmTYaon926UAB6MmCbWP6m X7Lwv7X3uD7qlISkDGUkgMUj ZxTlLZXwjx4uwZBzZXoep4Bo NNP3zvP3uREsnWYiGYHoEP04 Tuqun2KzQmkby9TiS48nyJG9 NBsyx3osHZ8gFhS8tfQnWUap o5nloA9oNeF6VCzoNQ3gRK2l RPKigC1szzwhLGVgKbDkphiq NVHleSlxbaJuOa7anZblNDU6 YZvvK9wvuO3eHjZ5UWprU3nz eE1pNEr2EHdchCK4RRMaqY9d FH5mfmpsh0blLLgkOJrgUTPr ciA4exA9ZQJziMUiV8ZizV1l EOJmOE9nuctlp0vfFZM7UKre QCSrVDS9LaQuSSIvs7Ihxdk8 GsHip3TvxTOkNRahW63fh417 PBKvieQtS6jklIMdclkevQHn jhelIHgbwwT4APQaqoRbk0Ew FPRgGUY5NGqcOQvazMVuBIIh hPsto9yjS2YmhXOsIMKwROox XGYxXGZzMjBcbGFuZzEwMzNc aGljaFxmMVxkYmNoXGYxXGxv D9jyObNrH6InHQNiIsSmqFPb G5reMBrwxbLhVQOkfmPcuNG5 JLakU0y2LHRmenWqbYw0ycCv JtDmQUVgUIG4GZpgxKDaHYUr l9FmhdxylDCrAq7beWNfTFLi gT7aVUIuPXFtLVasEK6ipAu9 AQUXoVTtmYDrHsISSGJnAC90 ewPwSOWVmhceb1P6XYhbUQQs z1QewCZlC5vjd4QbYBCkf46k LJ8he6A0j8wpKLF1ZR0cr2Dn LHLfcYAsiXYeRXUlc8Nyxaei i7YoNUSeldQyu5YbCYFwqiGb gOVxFYXvrdSvlc0kjnJxWRFw FIXbL6AspavbuKacemBmAFYh gv1odhWiUCD7FWUWLEPxMLLd t7OntV2oyBGLHYR6tGZina2t xmCRvGUpEPBnkk47HMQlJA1i G6rmNTRzVRPyjoEeeACpr1Xa BVFfjKS7sLLxND2VGeNEy36p IGFuZCBEcnVnIEFkbWluaXN0 lqT4cG0pVRgJTLDhArc+IFRo ETBJTGJxYO7qloJvg6NbftGd wFivIAFzhQTdx4ZziHXiq2Rd gEgfo9GlzPHdkIQsGV2hHOMo clxwYXIgVVRNQiBMYWJvcmF0 d1OmTOLiERStLCC5bApoqbs1 CEXtdA3dHSXaY0ltrxrjGNwj ZFPpe6QdqC2nkCMCyKWun7Dg jNIitLYYkDHrQS1vbjDiEPaY LRhUYAJ4yvEwARPyu6ZpCGvx V4ohU08kwUcezAp5nRN6IZS1 jB9dGpb+IFxwYXJccGFyIEFw bXDofTKhYSNemCkqpjXeL5Gp gnApnL1ipCAxdsMeXA4oFA7w R8A2uFLgTMRpudTcp4khPLqa dmUgYmVlbiByZXZpZXdlZCBm g3SmYHtmZWQ1ABysliMoktFk dWRpbmcgSCZFLCBTcGVjaWFs CYS7OVoshrUcnnMnWN7vnY2w lYxtaF6vpBZclKG9ghbjDPYe URStnTciZGBdQG6jyNVoNMSe gjOVqShgsSIrxX3rJ9WdWISg XCUifa8zWIDcrT4lEOevm2Gp pszmJHIiZCFfYWWbcbEhrk0z UHKvrHYDHS8WDDzwrCHwu1Dn olPfC6oYVLI5JBTfXmEyQfcz LQYkzCCugKEdKAYdph59NOFf xE3poAdhQEZxiL2yaH2nsDxn zU1fYoZkZjLoVBtvTX7qWEQo N8piyJFaSWTvPQJkJ9cuQhTj kH6mxSraFTmkKjIxZwFuCAmu YXJ9fQ== Embedded Images (test code = 9327708997) [facility] GLUCOSE (AUTOMATED)2021-12-20 21:01:08 Test Item Value Reference Range Interpretation Comments POCT GLU (test code = 3597079750) 187 mg/dL 70-110 H Lab Interpretation (test code = Abnormal 31310-7) [facility] GLUCOSE (AUTOMATED)2021-12-20 17:41:51 Test Item Value Reference Range Interpretation Comments POCT GLU (test code = 7430938263) 176 mg/dL 70-110 H Lab Interpretation (test code = Abnormal 61584-3) [facility] GLUCOSE (AUTOMATED)2021-12-20 14:07:55 Test Item Value Reference Range Interpretation Comments POCT GLU (test code = 5507695244) 182 mg/dL 70-110 H Lab Interpretation (test code = Abnormal 37206-7) [facility] GLUCOSE (AUTOMATED)2021-12-20 04:36:35 Test Item Value Reference Range Interpretation Comments POCT GLU (test code = 1210799616) 193 mg/dL 70-110 H Lab Interpretation (test code = Abnormal 95041-1) [facility] GLUCOSE (AUTOMATED)2021-12-20 02:16:44 Test Item Value Reference Range Interpretation Comments POCT GLU (test code = 5066873733) 198 mg/dL 70-110 H Lab Interpretation (test code = Abnormal 12753-4) [facility] GLUCOSE (AUTOMATED)2021-12-19 22:34:11 Test Item Value Reference Range Interpretation Comments POCT GLU (test code = 1833133172) 180 mg/dL 70-110 H Lab Interpretation (test code = Abnormal 21544-9) [facility] GLUCOSE (AUTOMATED)2021-12-19 17:06:14 Test Item Value Reference Range Interpretation Comments POCT GLU (test code = 0974878526) 263 mg/dL 70-110 H Lab Interpretation (test code = Abnormal 11023-8) [facility] GLUCOSE (AUTOMATED)2021-12-19 12:13:42 Test Item Value Reference Range Interpretation Comments POCT GLU (test code = 6840209008) 203 mg/dL 70-110 H Lab Interpretation (test code = Abnormal 38363-6) [facility] GLUCOSE (AUTOMATED)2021-12-19 02:39:13 Test Item Value Reference Range Interpretation Comments POCT GLU (test code = 1669486376) 177 mg/dL 70-110 H Lab Interpretation (test code = Abnormal 86997-2) [facility] GLUCOSE (AUTOMATED)2021-12-18 21:53:14 Test Item Value Reference Range Interpretation Comments POCT GLU (test code = 1168200225) 144 mg/dL 70-110 H Lab Interpretation (test code = Abnormal 08606-5) [facility] GLUCOSE (AUTOMATED)2021-12-18 16:39:48 Test Item Value Reference Range Interpretation Comments POCT GLU (test code = 1185049888) 154 mg/dL 70-110 H Lab Interpretation (test code = Abnormal 73920-3) [facility] GLUCOSE (AUTOMATED)2021-12-18 13:24:24 Test Item Value Reference Range Interpretation Comments POCT GLU (test code = 0163259783) 135 mg/dL 70-110 H Lab Interpretation (test code = Abnormal 98332-8) [facility] GLUCOSE (AUTOMATED)2021-12-18 02:16:37 Test Item Value Reference Range Interpretation Comments POCT GLU (test code = 7591899682) 122 mg/dL 70-110 H Lab Interpretation (test code = Abnormal 61168-6) [facility] GLUCOSE (AUTOMATED)2021-12-17 21:47:26 Test Item Value Reference Range Interpretation Comments POCT GLU (test code = 6524723687) 91 mg/dL 70-110 Lab Interpretation (test code = Normal 58674-7) [facility] GLUCOSE (AUTOMATED)2021-12-17 16:36:11 Test Item Value Reference Range Interpretation Comments POCT GLU (test code = 8981635866) 120 mg/dL 70-110 H Lab Interpretation (test code = Abnormal 18831-9) [facility] GLUCOSE (AUTOMATED)2021-12-17 13:38:07 Test Item Value Reference Range Interpretation Comments POCT GLU (test code = 2049252850) 94 mg/dL 70-110 Lab Interpretation (test code = Normal 03088-0) [facility] GLUCOSE (AUTOMATED)2021-12-17 02:12:37 Test Item Value Reference Range Interpretation Comments POCT GLU (test code = 2483797750) 139 mg/dL 70-110 H Lab Interpretation (test code = Abnormal 69011-7) [facility] GLUCOSE (AUTOMATED)2021-12-16 22:26:40 Test Item Value Reference Range Interpretation Comments POCT GLU (test code = 5195416310) 151 mg/dL 70-110 H Lab Interpretation (test code = Abnormal 55511-0) [facility] METABOLIC PANEL (NA, K, CL, CO2, GLUCOSE, BUN, CREATININE, CA)2021-12-16 17:50:56 Test Item Value Reference Range Interpretation Comments NA (test code = 131 mmol/L 135-145 L 1896488143) K (test code = 4.8 mmol/L 3.5-5 9981810197) CL (test code = 105 mmol/L 98-108 5921479476) CO2 TOTAL (test code = 19 mmol/L 23-31 L 8632996663) AGAP (test code = 2-16 6527815307) BUN (test code = 18 mg/dL 7-23 1646532605) GLUCOSE (test code = 178 mg/dL 70-110 H 5514824858) CREATININE (test code = 2.04 mg/dL 0.6-1.25 H 2724805328) CALCIUM (test code = 8.1 mg/dL 8.6-10.6 L 9846828114) eGFR (test code = mL/min/1.73m2 5046944306) JULEE (test code = JULEE) Association of Glomerular Filtration Rate (GFR) and Staging of Kidney Disease* + --+ --+ ------+| GFR (mL/min/1.73 m2) ?| With Kidney Damage ?| ?Without Kidney Damage+ --------+ --------+ +| ?>90 ?| ?Stage one ?| ? Normal ?+ ---+ ---+ -------+| ?60-89 ?| ?Stage two ?| ? Decreased GFR ? + --+ --+ ------+| ?30-59 ?| ?Stage three ?| ? Stage three ? + --+ --+ ------+| ?15-29 ?| ?Stage four ? | ? Stage four ?+ ---+ ---+ -------+| ?<15 (or dialysis) ? ?| ?Stage five ? | ? Stage five ?+ ---+ ---+ -------+ *Each stage assumes the associated GFR level has been in effect for at least three months. ?Stages 1 to 5, with or without kidney disease, indicate chronic kidney disease. Notes: Determination of stages one and two (with eGFR >59mL/min/1.73 m2) requires estimation of kidney damage for at least three months as defined by structural or functional abnormalities of the kidney, manifested by either:Pathological abnormalities or Markers of kidney damage (including abnormalities in the composition of the blood or urine or abnormalities in imaging tests). Lab Interpretation Abnormal (test code = 54825-4) [facility]56 Test Item Value Reference Range Interpretation Comments MAGNESIUM (test code = 2473875272) 1.6 mg/dL 1.7-2.4 L Lab Interpretation (test code = Abnormal 82163-4) [facility] 17:50:56 Test Item Value Reference Range Interpretation Comments PHOSPHORUS (test code = 8383539105) 3.2 mg/dL 2.5-5 Lab Interpretation (test code = Normal 63215-7) [facility] UJYH9730-54-18 17:39:55 Test Item Value Reference Range Interpretation Comments WBC (test code = See_Comment [Automated 6690-2) message] The sy stem which generated this result transmitted reference range : 4.20 - 10.70 10*3/?L. The reference range was not used to interpret this result as normal/abnormal . RBC (test code = See_Comment L [Automated 789-8) message] The sy stem which generated this result transmitted reference range : 4.26 - 5.52 10*6/?L. The reference range was not used to interpret this result as normal/abnormal . HGB (test code = 8.9 g/dL 12.2-16.4 L 718-7) HCT (test code = 27.3 % 38.4-49.3 L 4544-3) MCV (test code = 85.6 fL 81.7-95.6 787-2) MCH (test code = 27.9 pg 26.1-32.7 785-6) MCHC (test code = 32.6 g/dL 31.2-35 786-4) RDW-SD (test code = 47.8 fL 38.5-51.6 39673-2) RDW-CV (test code = 15.5 % 12.1-15.4 H 788-0) PLT (test code = See_Comment H [Automated 777-3) message] The sy stem which generated this result transmitted reference range : 150 - 328 10*3/ ?L. The reference r blade was not used to interpret this result as normal/abnormal . MPV (test code = 9.9 fL 9.8-13 08899-8) NRBC/100 WBC (test See_Comment [Automat ed code = 1823767164) message] The system which generated this result transmitted reference range : 0.0 - 10.0 /100 WBCs. The refer ence range was not u sed to interpret th is result as normal/abnormal . NRBC x10^3 (test code See_Comment [Auto mated = 8740544522) message] The s ystem which generated this result transmitted reference range : 10*3/?L. The reference range was not used to interpret this result as normal/abnormal . GRAN MAT (NEUT) % 80.3 % (test code = 770-8) IMM GRAN % (test code 1.60 % = 0903000811) LYMPH % (test code = 6.6 % 736-9) MONO % (test code = 8.0 % 5905-5) EOS % (test code = 3.1 % 713-8) BASO % (test code = 0.4 % 706-2) GRAN MAT x10^3(ANC) 7.67 10*3/uL 1.99-6.95 H (test code = 4366232166) IMM GRAN x10^3 (test 0.15 10*3/uL 0-0.06 H code = 7581852728) LYMPH x10^3 (test code 0.63 10*3/uL 1.09-3.23 L = 731-0) MONO x10^3 (test code 0.76 10*3/uL 0.36-1.02 = 742-7) EOS x10^3 (test code = 0.30 10*3/uL 0.06-0.53 711-2) BASO x10^3 (test code 0.04 10*3/uL 0.01-0.09 = 704-7) Lab Interpretation Abnormal (test code = 91946-7) [facility] 16:51:39 Test Item Value Reference Range Interpretation Comments POCT GLU (test code = 6318122415) 202 mg/dL 70-110 H Lab Interpretation (test code = Abnormal 96459-7) [facility] GLUCOSE (AUTOMATED)2021-12-16 13:22:04 Test Item Value Reference Range Interpretation Comments POCT GLU (test code = 3757398226) 119 mg/dL 70-110 H Lab Interpretation (test code = Abnormal 53365-7) [facility] GLUCOSE (AUTOMATED)2021-12-16 02:19:57 Test Item Value Reference Range Interpretation Comments POCT GLU (test code = 3876787736) 150 mg/dL 70-110 H Lab Interpretation (test code = Abnormal 85832-2) [facility] GLUCOSE (AUTOMATED)2021-12-15 22:11:04 Test Item Value Reference Range Interpretation Comments POCT GLU (test code = 3400659267) 133 mg/dL 70-110 H Lab Interpretation (test code = Abnormal 08152-3) [facility] GLUCOSE (AUTOMATED)2021-12-15 17:24:00 Test Item Value Reference Range Interpretation Comments POCT GLU (test code = 5097492622) 126 mg/dL 70-110 H Lab Interpretation (test code = Abnormal 80296-6) [facility] GLUCOSE (AUTOMATED)2021-12-15 13:35:43 Test Item Value Reference Range Interpretation Comments POCT GLU (test code = 2383768647) 118 mg/dL 70-110 H Lab Interpretation (test code = Abnormal 40495-7) [facility] GLUCOSE (AUTOMATED)2021-12-15 01:35:03 Test Item Value Reference Range Interpretation Comments POCT GLU (test code = 7525159488) 187 mg/dL 70-110 H Lab Interpretation (test code = Abnormal 53093-0) [facility] GLUCOSE (AUTOMATED)2021-12-14 22:38:31 Test Item Value Reference Range Interpretation Comments POCT GLU (test code = 0475620215) 126 mg/dL 70-110 H Lab Interpretation (test code = Abnormal 70444-7) [facility] GLUCOSE (AUTOMATED)2021-12-14 16:25:21 Test Item Value Reference Range Interpretation Comments POCT GLU (test code = 9759469774) 114 mg/dL 70-110 H Lab Interpretation (test code = Abnormal 42173-7) [facility] GLUCOSE (AUTOMATED)2021-12-14 13:43:44 Test Item Value Reference Range Interpretation Comments POCT GLU (test code = 9780380627) 138 mg/dL 70-110 H Lab Interpretation (test code = Abnormal 63439-6) [facility] GLUCOSE (AUTOMATED)2021-12-14 02:04:59 Test Item Value Reference Range Interpretation Comments POCT GLU (test code = 0253992464) 145 mg/dL 70-110 H Lab Interpretation (test code = Abnormal 50157-8) [facility] 22:44:09 Test Item Value Reference Range Interpretation Comments PH (test code = 2) 7.35-7.45 PCO2 (test code = See_Comment [Automate d message] 7192720965) The system [employer] generated this result transmit escobar reference range : 35 - 45 mmHg. The reference range was not used to interpret this result as normal/abnormal . PO2 (test code = See_Comment H [Automated message] 6587844522) The system [employer] generated this result transmit escobar reference range : 80 - 100 mmHg. The reference range was not used to interpret this result as normal/abnormal . HCO3 (test code = See_Comment L [Automate d message] 9384530750) The system [employer] generated this result transmit escobar reference range : 22 - 26 mEq/L. The reference range was not used to interpret this result as normal/abnormal . BE (test code = See_Comment L [Automated message] 7525981240) The system [employer] generated this result transmit escobar reference range : -3.0 - 3.0 mEq/ L. The reference r blade was not used to interpret this result as normal/abnormal . THB (test code = 8.6 g/dL 13.5-18 L 1032556648) %O2HB (test code = 98.0 % 94-99 7751257670) %COHB ART (test code = 0.9 % 0-1.5 0379900022) %METHB ART (test code = 0.3 % 0.4-1.5 L 0654337880) VOL%O2 ART (test code = 12.4 % 15-23 L QUES 5430325563) NA (test code = 133 mmol/L 135-145 L 7667622408) K+ (test code = 4.4 mmol/L 3.5-5 2768340565) AC CA IONZ (test code = 4.60 mg/dL 4.5-5.3 9347278924) GLUCOSE (test code = 139 mg/dL 70-110 H 6356292480) Lab Interpretation Abnormal (test code = 41066-5) [facility] 22:44:09 Test Item Value Reference Range Interpretation Comments PH (test code = 2) 7.35-7.45 PCO2 (test code = See_Comment [Automate d message] 3537509472) The system [employer] generated this result transmit escobar reference range : 35 - 45 mmHg. The reference range was not used to interpret this result as normal/abnormal . PO2 (test code = See_Comment H [Automated message] 8024524610) The system [employer] generated this result transmit escobar reference range : 80 - 100 mmHg. The reference range was not used to interpret this result as normal/abnormal . HCO3 (test code = See_Comment L [Automate d message] 4018435787) The system [employer] generated this result transmit escobar reference range : 22 - 26 mEq/L. The reference range was not used to interpret this result as normal/abnormal . BE (test code = See_Comment L [Automated message] 2951467518) The system [employer] generated this result transmit escobar reference range : -3.0 - 3.0 mEq/ L. The reference r blade was not used to interpret this result as normal/abnormal . THB (test code = 8.6 g/dL 13.5-18 L 5580556771) %O2HB (test code = 98.0 % 94-99 8767897083) %COHB ART (test code = 0.9 % 0-1.5 1404218494) %METHB ART (test code = 0.3 % 0.4-1.5 L 6660783280) VOL%O2 ART (test code = 12.4 % 15-23 L QUES 1773927139) NA (test code = 133 mmol/L 135-145 L 1063688831) K+ (test code = 4.4 mmol/L 3.5-5 0680997146) AC CA IONZ (test code = 4.60 mg/dL 4.5-5.3 7226552897) GLUCOSE (test code = 139 mg/dL 70-110 H 8657607724) Lab Interpretation Abnormal (test code = 11176-4) [facility] 22:43:43 Test Item Value Reference Range Interpretation Comments PH (test code = 2) 7.35-7.45 L PCO2 (test code = See_Comment [Automate d message] 8093809979) The system [employer] generated this result transmit escobar reference range : 35 - 45 mmHg. The reference range was not used to interpret this result as normal/abnormal . PO2 (test code = See_Comment H [Automated message] 7134076112) The system [employer] generated this result transmit escobar reference range : 80 - 100 mmHg. The reference range was not used to interpret this result as normal/abnormal . HCO3 (test code = See_Comment L [Automate d message] 2238656957) The system [employer] generated this result transmit escobar reference range : 22 - 26 mEq/L. The reference range was not used to interpret this result as normal/abnormal . BE (test code = See_Comment L [Automated message] 6857435918) The system [employer] generated this result transmit escobar reference range : -3.0 - 3.0 mEq/ L. The reference r blade was not used to interpret this result as normal/abnormal . THB (test code = 9.7 g/dL 13.5-18 L 9955832989) %O2HB (test code = 98.8 % 94-99 4780128186) %COHB ART (test code = 0.3 % 0-1.5 3411018753) %METHB ART (test code = 0.2 % 0.4-1.5 L 2738497594) VOL%O2 ART (test code = 14.1 % 15-23 L QUES 1092850266) NA (test code = 132 mmol/L 135-145 L 8132496016) K+ (test code = 4.5 mmol/L 3.5-5 6312244876) AC CA IONZ (test code = 4.50 mg/dL 4.5-5.3 4388574491) GLUCOSE (test code = 196 mg/dL 70-110 H 8958373220) Lab Interpretation Abnormal (test code = 18165-6) [facility] 22:43:43 Test Item Value Reference Range Interpretation Comments PH (test code = 2) 7.35-7.45 L PCO2 (test code = See_Comment [Automate d message] 4990149951) The system [employer] generated this result transmit escobar reference range : 35 - 45 mmHg. The reference range was not used to interpret this result as normal/abnormal . PO2 (test code = See_Comment H [Automated message] 1056771695) The system [employer] generated this result transmit escobar reference range : 80 - 100 mmHg. The reference range was not used to interpret this result as normal/abnormal . HCO3 (test code = See_Comment L [Automate d message] 3350548237) The system [employer] generated this result transmit escobar reference range : 22 - 26 mEq/L. The reference range was not used to interpret this result as normal/abnormal . BE (test code = See_Comment L [Automated message] 4175747336) The system [employer] generated this result transmit escobar reference range : -3.0 - 3.0 mEq/ L. The reference r blade was not used to interpret this result as normal/abnormal . THB (test code = 9.7 g/dL 13.5-18 L 8755124748) %O2HB (test code = 98.8 % 94-99 3592850856) %COHB ART (test code = 0.3 % 0-1.5 3801854689) %METHB ART (test code = 0.2 % 0.4-1.5 L 5058889001) VOL%O2 ART (test code = 14.1 % 15-23 L QUES 9522686915) NA (test code = 132 mmol/L 135-145 L 8635672111) K+ (test code = 4.5 mmol/L 3.5-5 5853883663) AC CA IONZ (test code = 4.50 mg/dL 4.5-5.3 1045186001) GLUCOSE (test code = 196 mg/dL 70-110 H 1734331500) Lab Interpretation Abnormal (test code = 92768-9) [facility] 22:42:48 Test Item Value Reference Range Interpretation Comments PH (test code = 2) 7.35-7.45 L PCO2 (test code = See_Comment [Automate d message] 2264471038) The system [employer] generated this result transmit escobar reference range : 35 - 45 mmHg. The reference range was not used to interpret this result as normal/abnormal . PO2 (test code = See_Comment H [Automated message] 9451875493) The system [employer] generated this result transmit escobar reference range : 80 - 100 mmHg. The reference range was not used to interpret this result as normal/abnormal . HCO3 (test code = See_Comment L [Automate d message] 9782256112) The system [employer] generated this result transmit escobar reference range : 22 - 26 mEq/L. The reference range was not used to interpret this result as normal/abnormal . BE (test code = See_Comment L [Automated message] 5714861515) The system [employer] generated this result transmit escobar reference range : -3.0 - 3.0 mEq/ L. The reference r blade was not used to interpret this result as normal/abnormal . THB (test code = 7.8 g/dL 13.5-18 LL 8226073185) %O2HB (test code = 97.7 % 94-99 9985978130) %COHB ART (test code = 1.2 % 0-1.5 3943629722) %METHB ART (test code = 0.5 % 0.4-1.5 2373301729) VOL%O2 ART (test code = 11.3 % 15-23 L QUES 7668264515) NA (test code = 132 mmol/L 135-145 L 2457608145) K+ (test code = 4.9 mmol/L 3.5-5 0557460221) AC CA IONZ (test code = 4.40 mg/dL 4.5-5.3 L 8061425879) GLUCOSE (test code = 226 mg/dL 70-110 H 5734773238) Lab Interpretation Abnormal (test code = 46692-6) [facility] 22:42:48 Test Item Value Reference Range Interpretation Comments PH (test code = 2) 7.35-7.45 L PCO2 (test code = See_Comment [Automate d message] 8993161496) The system [employer] generated this result transmit escobar reference range : 35 - 45 mmHg. The reference range was not used to interpret this result as normal/abnormal . PO2 (test code = See_Comment H [Automated message] 9863335949) The system [employer] generated this result transmit escobar reference range : 80 - 100 mmHg. The reference range was not used to interpret this result as normal/abnormal . HCO3 (test code = See_Comment L [Automate d message] 6556763947) The system [employer] generated this result transmit escobar reference range : 22 - 26 mEq/L. The reference range was not used to interpret this result as normal/abnormal . BE (test code = See_Comment L [Automated message] 2951865259) The system [employer] generated this result transmit escobar reference range : -3.0 - 3.0 mEq/ L. The reference r blade was not used to interpret this result as normal/abnormal . THB (test code = 7.8 g/dL 13.5-18 LL 9221051329) %O2HB (test code = 97.7 % 94-99 3528310576) %COHB ART (test code = 1.2 % 0-1.5 6921033835) %METHB ART (test code = 0.5 % 0.4-1.5 5422075700) VOL%O2 ART (test code = 11.3 % 15-23 L QUES 3184027347) NA (test code = 132 mmol/L 135-145 L 0422901070) K+ (test code = 4.9 mmol/L 3.5-5 4676534615) AC CA IONZ (test code = 4.40 mg/dL 4.5-5.3 L 0900950132) GLUCOSE (test code = 226 mg/dL 70-110 H 8265261573) Lab Interpretation Abnormal (test code = 74909-8) [facility] 22:41:57 Test Item Value Reference Range Interpretation Comments PH (test code = 2) 7.35-7.45 L PCO2 (test code = See_Comment [Automate d message] 4868224069) The system Answer[employer] h generated this result transmit escobar reference range : 35 - 45 mmHg. The reference range was not used to interpret this result as normal/abnormal . PO2 (test code = See_Comment H [Automated message] 3348272263) The system [employer] h generated this result transmit escobar reference range : 80 - 100 mmHg. The reference range was not used to interpret this result as normal/abnormal . HCO3 (test code = See_Comment L [Automate d message] 8992751100) The system [employer] h generated this result transmit escobar reference range : 22 - 26 mEq/L. The reference range was not used to interpret this result as normal/abnormal . BE (test code = See_Comment L [Automated message] 1026149622) The system [employer] generated this result transmit escobar reference range : -3.0 - 3.0 mEq/ L. The reference r blade was not used to interpret this result as normal/abnormal . THB (test code = 9.2 g/dL 13.5-18 L 1048742347) %O2HB (test code = 98.5 % 94-99 3171421258) %COHB ART (test code = 0.6 % 0-1.5 9595063099) %METHB ART (test code = 0.4 % 0.4-1.5 1358210628) VOL%O2 ART (test code = 14.0 % 15-23 L QUES 9512712112) NA (test code = 131 mmol/L 135-145 L 5477311972) K+ (test code = 4.9 mmol/L 3.5-5 9784191962) AC CA IONZ (test code = 4.70 mg/dL 4.5-5.3 8234629853) GLUCOSE (test code = 181 mg/dL 70-110 H 0634230147) Lab Interpretation Abnormal (test code = 87577-5) [facility] 22:41:57 Test Item Value Reference Range Interpretation Comments PH (test code = 2) 7.35-7.45 L PCO2 (test code = See_Comment [Automate d message] 8260555829) The system [employer] generated this result transmit escobar reference range : 35 - 45 mmHg. The reference range was not used to interpret this result as normal/abnormal . PO2 (test code = See_Comment H [Automated message] 1823420237) The system [employer] generated this result transmit escobar reference range : 80 - 100 mmHg. The reference range was not used to interpret this result as normal/abnormal . HCO3 (test code = See_Comment L [Automate d message] 0166581043) The system [employer] generated this result transmit escobar reference range : 22 - 26 mEq/L. The reference range was not used to interpret this result as normal/abnormal . BE (test code = See_Comment L [Automated message] 0271358495) The system [employer] generated this result transmit escobar reference range : -3.0 - 3.0 mEq/ L. The reference r blade was not used to interpret this result as normal/abnormal . THB (test code = 9.2 g/dL 13.5-18 L 7149879147) %O2HB (test code = 98.5 % 94-99 8003147468) %COHB ART (test code = 0.6 % 0-1.5 4775765389) %METHB ART (test code = 0.4 % 0.4-1.5 3546871944) VOL%O2 ART (test code = 14.0 % 15-23 L QUES 4284222848) NA (test code = 131 mmol/L 135-145 L 5152132972) K+ (test code = 4.9 mmol/L 3.5-5 9067668837) AC CA IONZ (test code = 4.70 mg/dL 4.5-5.3 8639597816) GLUCOSE (test code = 181 mg/dL 70-110 H 8704287700) Lab Interpretation Abnormal (test code = 54401-3) [facility] 22:41:37 Test Item Value Reference Range Interpretation Comments PH (test code = 2) 7.35-7.45 LL PCO2 (test code = See_Comment H [Automate d message] 4867592641) The system [employer] generated this result transmit escobar reference range : 35 - 45 mmHg. The reference range was not used to interpret this result as normal/abnormal . PO2 (test code = See_Comment H [Automated message] 2376667426) The system [employer] generated this result transmit escobar reference range : 80 - 100 mmHg. The reference range was not used to interpret this result as normal/abnormal . HCO3 (test code = See_Comment L [Automate d message] 3319175010) The system [employer] generated this result transmit escobar reference range : 22 - 26 mEq/L. The reference range was not used to interpret this result as normal/abnormal . BE (test code = See_Comment L [Automated message] 9407783329) The system [employer] generated this result transmit escobar reference range : -3.0 - 3.0 mEq/ L. The reference r blade was not used to interpret this result as normal/abnormal . THB (test code = 8.7 g/dL 13.5-18 L 6157948333) %O2HB (test code = 98.4 % 94-99 4906813458) %COHB ART (test code = 0.9 % 0-1.5 5313108662) %METHB ART (test code = 0.4 % 0.4-1.5 8068463538) VOL%O2 ART (test code = 13.4 % 15-23 L QUES 1805907021) NA (test code = 132 mmol/L 135-145 L 4919476853) K+ (test code = 5.2 mmol/L 3.5-5 H 1333475909) AC CA IONZ (test code = 4.70 mg/dL 4.5-5.3 4516163194) GLUCOSE (test code = 195 mg/dL 70-110 H 9384866356) Lab Interpretation Abnormal (test code = 92067-3) [facility] 22:41:37 Test Item Value Reference Range Interpretation Comments PH (test code = 2) 7.35-7.45 LL PCO2 (test code = See_Comment H [Automate d message] 5101654401) The system [employer] generated this result transmit escobar reference range : 35 - 45 mmHg. The reference range was not used to interpret this result as normal/abnormal . PO2 (test code = See_Comment H [Automated message] 3456184045) The system [employer] generated this result transmit escobar reference range : 80 - 100 mmHg. The reference range was not used to interpret this result as normal/abnormal . HCO3 (test code = See_Comment L [Automate d message] 5983354600) The system [employer] generated this result transmit escobar reference range : 22 - 26 mEq/L. The reference range was not used to interpret this result as normal/abnormal . BE (test code = See_Comment L [Automated message] 6359188858) The system [employer] generated this result transmit escobar reference range : -3.0 - 3.0 mEq/ L. The reference r blade was not used to interpret this result as normal/abnormal . THB (test code = 8.7 g/dL 13.5-18 L 6014082288) %O2HB (test code = 98.4 % 94-99 7635983616) %COHB ART (test code = 0.9 % 0-1.5 6301544521) %METHB ART (test code = 0.4 % 0.4-1.5 1847151812) VOL%O2 ART (test code = 13.4 % 15-23 L QUES 3726674408) NA (test code = 132 mmol/L 135-145 L 1160840146) K+ (test code = 5.2 mmol/L 3.5-5 H 1371883794) AC CA IONZ (test code = 4.70 mg/dL 4.5-5.3 3923801267) GLUCOSE (test code = 195 mg/dL 70-110 H 0374135248) Lab Interpretation Abnormal (test code = 12484-9) [facility] 22:40:56 Test Item Value Reference Range Interpretation Comments PH (test code = 2) 7.35-7.45 L PCO2 (test code = See_Comment [Automate d message] 2928948497) The system [employer] generated this result transmit escobar reference range : 35 - 45 mmHg. The reference range was not used to interpret this result as normal/abnormal . PO2 (test code = See_Comment H [Automated message] 0384439447) The system [employer] generated this result transmit escobar reference range : 80 - 100 mmHg. The reference range was not used to interpret this result as normal/abnormal . HCO3 (test code = See_Comment L [Automate d message] 2952784771) The system [employer] generated this result transmit escobar reference range : 22 - 26 mEq/L. The reference range was not used to interpret this result as normal/abnormal . BE (test code = See_Comment L [Automated message] 9752388108) The system [employer] generated this result transmit escobar reference range : -3.0 - 3.0 mEq/ L. The reference r blade was not used to interpret this result as normal/abnormal . THB (test code = 8.7 g/dL 13.5-18 L 2056058460) %O2HB (test code = 99.2 % 94-99 H 2873215252) %COHB ART (test code = 0.3 % 0-1.5 7164445337) %METHB ART (test code = 0.0 % 0.4-1.5 L 3994643656) VOL%O2 ART (test code = 13.6 % 15-23 L QUES 2243441400) NA (test code = 132 mmol/L 135-145 L 8973546740) K+ (test code = 5.3 mmol/L 3.5-5 H 8118810347) AC CA IONZ (test code = 4.60 mg/dL 4.5-5.3 2928896673) GLUCOSE (test code = 203 mg/dL 70-110 H 4396737931) Lab Interpretation Abnormal (test code = 26340-4) [facility] 22:40:56 Test Item Value Reference Range Interpretation Comments PH (test code = 2) 7.35-7.45 L PCO2 (test code = See_Comment [Automate d message] 5490163980) The system [employer] generated this result transmit escobar reference range : 35 - 45 mmHg. The reference range was not used to interpret this result as normal/abnormal . PO2 (test code = See_Comment H [Automated message] 3569797288) The system [employer] generated this result transmit escobar reference range : 80 - 100 mmHg. The reference range was not used to interpret this result as normal/abnormal . HCO3 (test code = See_Comment L [Automate d message] 4279314923) The system [employer] generated this result transmit escobar reference range : 22 - 26 mEq/L. The reference range was not used to interpret this result as normal/abnormal . BE (test code = See_Comment L [Automated message] 0568462422) The system [employer] generated this result transmit escobar reference range : -3.0 - 3.0 mEq/ L. The reference r blade was not used to interpret this result as normal/abnormal . THB (test code = 8.7 g/dL 13.5-18 L 8133677184) %O2HB (test code = 99.2 % 94-99 H 8454407155) %COHB ART (test code = 0.3 % 0-1.5 6545197199) %METHB ART (test code = 0.0 % 0.4-1.5 L 3908034164) VOL%O2 ART (test code = 13.6 % 15-23 L QUES 9074593240) NA (test code = 132 mmol/L 135-145 L 0769982281) K+ (test code = 5.3 mmol/L 3.5-5 H 9940554269) AC CA IONZ (test code = 4.60 mg/dL 4.5-5.3 7067814344) GLUCOSE (test code = 203 mg/dL 70-110 H 4759851986) Lab Interpretation Abnormal (test code = 05518-4) [facility] GLUCOSE (AUTOMATED)2021-12-13 21:46:19 Test Item Value Reference Range Interpretation Comments POCT GLU (test code = 9226611222) 179 mg/dL 70-110 H Lab Interpretation (test code = Abnormal 31634-9) [facility] GLUCOSE (AUTOMATED)2021-12-13 21:46:19 Test Item Value Reference Range Interpretation Comments POCT GLU (test code = 8653719592) 179 mg/dL 70-110 H Lab Interpretation (test code = Abnormal 30828-3) [id number] 20:35:32 Test Item Value Reference Range Interpretation Comments KRAS Mutation (test Positive Negative code = 6904064686) JULEE (test code = Sample tested: [id number] JULEE) 03-12-11(Tissue, LARGE INTESTINE,SIGMOID COLON)Marked % tumor cells in the requested area: 80% 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 Determination of KRAS mutation status is useful in determining patient eligibility for such treatment. KRAS specific variants (eg, G12C) are predictive to FDA approved or experimental KRAS mutation-specific blocking drugs. Limit of detection: 10% mutant alleles (20% tumor cells). Genomic DNA is isolated from dissected tumor tissue and amplified for segments of the KRAS gene covering codons 12, 13, and 61. Mutation status for these three codons is determined by pyrosequencing. The results are not intended to be used as the sole means for clinical diagnosis or patient management decisions. This test was developed and its performance characteristics were determined by [facility]. It has not been cleared or approved by the U. S. Food and Drug Administration (FDA). The FDA has determined that such clearance or approval is not necessary. This test is used for clinical purposes. It should not be regarded as investigational or for research. This laboratory is certified under the Clinical Laboratory Improvement Amendments of 1988 (CLIA-88) as qualified to perform high complexity clinical laboratory testing. 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 Determination of KRAS mutation status is useful in determining patient eligibility for such treatment. KRAS specific variants (eg, G12C) are predictive to FDA approved or experimental KRAS mutation-specific blocking drugs. Limit of detection: 10% mutant alleles (20% tumor cells). Genomic DNA is isolated from dissected tumor tissue and amplified for segments of the KRAS gene covering codons 12, 13, and 61. Mutation status for these three codons is determined by pyrosequencing. The results are not intended to be used as the sole means for clinical diagnosis or patient management decisions. This test was developed and its performance characteristics were determined by [facility]. It has not been cleared or approved by the U. S. Food and Drug Administration (FDA). The FDA has determined that such clearance or approval is not necessary. This test is used for clinical purposes. It should not be regarded as investigational or for research. This laboratory is certified under the Clinical Laboratory Improvement Amendments of 1988 (CLIA-88) as qualified to perform high complexity clinical laboratory testing. References: http://omim.org/entry/1900 70 Http://[employer] WineMeNow.org/Genes/GNHFOC76.html http://cancer.jun.ac.uk /cosmic/search?q=KRAS This result has been reviewed and approved by Vic Pelayo MD, PhD, [facility] [id number] 20:35:01 Test Item Value Reference Range Interpretation Comments NRAS Mutation (test Negative Negative code = [id number]) JULEE (test code = Sample Tested: [id number] JULEE) B1-8-12(Tissue, LARGE INTESTINE,SIGMOID COLON)Marked % Tumor Cells in the Requested Area: 80% Test Information:Oncogenic NRAS mutations have been linked to resistance to anti-EGFR therapies. Test results can predict response to anti-EGFR and MAPK pathway therapies in a variety of malignancies including colorectal cancer and melanoma. Limit of detection: 10% mutant alleles (20% tumor cells). Genomic DNA is isolated from macro-dissected tumor tissue and amplified for segments of the NRAS gene covering codons 12, 13, and 61. Mutation status for these three codons is determined by pyrosequencing. The results are not intended to be used as the sole means for clinical diagnosis or patient management decisions. This test was developed and its performance characteristics were determined by [facility]. It has not been cleared or approved by the U. S. Food and Drug Administration (FDA). The FDA has determined that such clearance or approval is not necessary. This test is used for clinical purposes. It should not be regarded as investigational or for research. This laboratory is certified under the Clinical Laboratory Improvement Amendments of 1988 (CLIA-88) as qualified to perform high complexity clinical laboratory testing. References: https://omim.org/entry/164 790 http://Libratone.org//Genes/QLTETY01.htm l http://cancer.jun.ac.uk /cosmic/gene/analysis?ln=N JOSÉ LUIS This result has been reviewed and approved by Vic Pelayo MD, PhD, [facility] [id number] 20:35:01 Test Item Value Reference Range Interpretation Comments NRAS Mutation (test Negative Negative code = [id number]) JULEE (test code = Sample Tested: [id number] JULEE) B1-8-12(Tissue, LARGE INTESTINE,SIGMOID COLON)Marked % Tumor Cells in the Requested Area: 80% Test Information:Oncogenic NRAS mutations have been linked to resistance to anti-EGFR therapies. Test results can predict response to anti-EGFR and MAPK pathway therapies in a variety of malignancies including colorectal cancer and melanoma. Limit of detection: 10% mutant alleles (20% tumor cells). Genomic DNA is isolated from macro-dissected tumor tissue and amplified for segments of the NRAS gene covering codons 12, 13, and 61. Mutation status for these three codons is determined by pyrosequencing. The results are not intended to be used as the sole means for clinical diagnosis or patient management decisions. This test was developed and its performance characteristics were determined by [facility]. It has not been cleared or approved by the U. S. Food and Drug Administration (FDA). The FDA has determined that such clearance or approval is not necessary. This test is used for clinical purposes. It should not be regarded as investigational or for research. This laboratory is certified under the Clinical Laboratory Improvement Amendments of 1988 (CLIA-88) as qualified to perform high complexity clinical laboratory testing. References: https://omim.org/entry/164 790 http://[employer] WineMeNow.org//Genes/EQHJPX46.htm l http://cancer.jun.ac.uk /cosmic/gene/analysis?ln=N JOSÉ LUIS This result has been reviewed and approved by Vic Pelayo MD, PhD, [facility] GLUCOSE (AUTOMATED)2021-12-13 20:34:35 Test Item Value Reference Range Interpretation Comments POCT GLU (test code = 2121354971) 127 mg/dL 70-110 H Lab Interpretation (test code = Abnormal 91240-1) [facility] GLUCOSE (AUTOMATED)2021-12-13 20:34:35 Test Item Value Reference Range Interpretation Comments POCT GLU (test code = 1432260949) 127 mg/dL 70-110 H Lab Interpretation (test code = Abnormal 71178-3) [facility]:25 Test Item Value Reference Range Interpretation Comments BRAF Mutation (test Negative Negative code = [id number]) JLUEE (test code = Sample tested: [id number] JULEE) B1-8-12(Tissue, LARGE INTESTINE,SIGMOID COLON)Marked % tumor cells in the requested area: 80% Test Information: Detection of BRAF codon 600 (Selina 600, V600) mutation may be used to 1. Predict response for anti-EGFR therapy in colorectal and other cancers, 2. Predict response for anti-mutant BRAF, anti-MEK therapy in melanoma, papillary thyroid carcinoma, and other cancers, 3. Determine disease prognosis of colorectal cancer, low grade glioma, papillary thyroid carcinoma, and other cancers, 4. Determine sporadic origin of MSI-H colorectal cancer. Limit of detection: 10% mutant alleles (20% tumor cells). Genomic DNA is isolated from dissected tumor tissue and amplified for exon 15 of the BRAF gene. Mutation status is determined by pyrosequencing. The results are not intended to be used as the sole means for clinical diagnosis or patient management decisions. This test was developed and its performance characteristics were determined by [facility]. It has not been cleared or approved by the U.S. Food and Drug Administration (FDA). The FDA has determined that such clearance or approval is not necessary. This test is used for clinical purposes. It should not be regarded as investigational or for research. This laboratory is certified under the Clinical Laboratory Improvement Amendments of 1988 (CLIA-88) as qualified to perform high complexity clinical laboratory testing. References: http://omim.org/entry/1647 57?search=BRAF&highlight=b pamela Http://[employer] WineMeNow.org/Genes/LLZCWT570.htm l http://cancer.jun.ac.uk /cosmic/search?q=BRAF This result has been reviewed and approved by Vic Pelayo MD, PhD, [facility] 20:34:25 Test Item Value Reference Range Interpretation Comments BRAF Mutation (test Negative Negative code = [id number]) JULEE (test code = Sample tested: [id number] JULEE) B1-8-12(Tissue, LARGE INTESTINE,SIGMOID COLON)Marked % tumor cells in the requested area: 80% Test Information: Detection of BRAF codon 600 (Selina 600, V600) mutation may be used to 1. Predict response for anti-EGFR therapy in colorectal and other cancers, 2. Predict response for anti-mutant BRAF, anti-MEK therapy in melanoma, papillary thyroid carcinoma, and other cancers, 3. Determine disease prognosis of colorectal cancer, low grade glioma, papillary thyroid carcinoma, and other cancers, 4. Determine sporadic origin of MSI-H colorectal cancer. Limit of detection: 10% mutant alleles (20% tumor cells). Genomic DNA is isolated from dissected tumor tissue and amplified for exon 15 of the BRAF gene. Mutation status is determined by pyrosequencing. The results are not intended to be used as the sole means for clinical diagnosis or patient management decisions. This test was developed and its performance characteristics were determined by [facility]. It has not been cleared or approved by the U.S. Food and Drug Administration (FDA). The FDA has determined that such clearance or approval is not necessary. This test is used for clinical purposes. It should not be regarded as investigational or for research. This laboratory is certified under the Clinical Laboratory Improvement Amendments of 1988 (CLIA-88) as qualified to perform high complexity clinical laboratory testing. 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 Determination of KRAS mutation status is useful in determining patient eligibility for such treatment. KRAS specific variants (eg, G12C) are predictive to FDA approved or experimental KRAS mutation-specific blocking drugs. Limit of detection: 10% mutant alleles (20% tumor cells). Genomic DNA is isolated from dissected tumor tissue and amplified for segments of the KRAS gene covering codons 12, 13, and 61. Mutation status for these three codons is determined by pyrosequencing. The results are not intended to be used as the sole means for clinical diagnosis or patient management decisions. This test was developed and its performance characteristics were determined by [facility]. It has not been cleared or approved by the U. S. Food and Drug Administration (FDA). The FDA has determined that such clearance or approval is not necessary. This test is used for clinical purposes. It should not be regarded as investigational or for research. This laboratory is certified under the Clinical Laboratory Improvement Amendments of 1988 (CLIA-88) as qualified to perform high complexity clinical laboratory testing. 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 Determination of KRAS mutation status is useful in determining patient eligibility for such treatment. KRAS specific variants (eg, G12C) are predictive to FDA approved or experimental KRAS mutation-specific blocking drugs. Limit of detection: 10% mutant alleles (20% tumor cells). Genomic DNA is isolated from dissected tumor tissue and amplified for segments of the KRAS gene covering codons 12, 13, and 61. Mutation status for these three codons is determined by pyrosequencing. The results are not intended to be used as the sole means for clinical diagnosis or patient management decisions. This test was developed and its performance characteristics were determined by [facility]. It has not been cleared or approved by the U. S. Food and Drug Administration (FDA). The FDA has determined that such clearance or approval is not necessary. This test is used for clinical purposes. It should not be regarded as investigational or for research. This laboratory is certified under the Clinical Laboratory Improvement Amendments of 1988 (CLIA-88) as qualified to perform high complexity clinical laboratory testing. References: http://omim.org/entry/1900 70 Http://[employer] WineMeNow.org/Genes/KIZOEN33.html http://cancer.jun.ac.uk /cosmic/search?q=KRAS This result has been reviewed and approved by Vic Pelayo MD, PhD, [facility] [id number] 20:33:17 Test Item Value Reference Range Interpretation Comments NRAS Mutation (test Negative Negative code = [id number]) JULEE (test code = Sample Tested: [id number] JULEE) A1-8-12(Tissue, LARGE INTESTINE,RIGHT ASCENDING COLON)Marked % Tumor Cells in the Requested Area: 70% Test Information:Oncogenic NRAS mutations have been linked to resistance to anti-EGFR therapies. Test results can predict response to anti-EGFR and MAPK pathway therapies in a variety of malignancies including colorectal cancer and melanoma. Limit of detection: 10% mutant alleles (20% tumor cells). Genomic DNA is isolated from macro-dissected tumor tissue and amplified for segments of the NRAS gene covering codons 12, 13, and 61. Mutation status for these three codons is determined by pyrosequencing. The results are not intended to be used as the sole means for clinical diagnosis or patient management decisions. This test was developed and its performance characteristics were determined by [facility]. It has not been cleared or approved by the U. S. Food and Drug Administration (FDA). The FDA has determined that such clearance or approval is not necessary. This test is used for clinical purposes. It should not be regarded as investigational or for research. This laboratory is certified under the Clinical Laboratory Improvement Amendments of 1988 (CLIA-88) as qualified to perform high complexity clinical laboratory testing. References: https://omim.org/entry/164 790 http://Libratone.org//Genes/EQIUYX13.htm l http://cancer.jun.ac.uk /cosmic/gene/analysis?ln=N JOSÉ LUIS This result has been reviewed and approved by Vic Pelayo MD, PhD, [facility] [id number] 20:33:17 Test Item Value Reference Range Interpretation Comments NRAS Mutation (test Negative Negative code = [id number]) JULEE (test code = Sample Tested: [id number] JULEE) A1-8-12(Tissue, LARGE INTESTINE,RIGHT ASCENDING COLON)Marked % Tumor Cells in the Requested Area: 70% Test Information:Oncogenic NRAS mutations have been linked to resistance to anti-EGFR therapies. Test results can predict response to anti-EGFR and MAPK pathway therapies in a variety of malignancies including colorectal cancer and melanoma. Limit of detection: 10% mutant alleles (20% tumor cells). Genomic DNA is isolated from macro-dissected tumor tissue and amplified for segments of the NRAS gene covering codons 12, 13, and 61. Mutation status for these three codons is determined by pyrosequencing. The results are not intended to be used as the sole means for clinical diagnosis or patient management decisions. This test was developed and its performance characteristics were determined by [facility]. It has not been cleared or approved by the U. S. Food and Drug Administration (FDA). The FDA has determined that such clearance or approval is not necessary. This test is used for clinical purposes. It should not be regarded as investigational or for research. This laboratory is certified under the Clinical Laboratory Improvement Amendments of 1988 (CLIA-88) as qualified to perform high complexity clinical laboratory testing. References: https://omim.org/entry/164 790 http://Libratone.org//Genes/DWKJDP43.htm l http://cancer.jun.ac.uk /cosmic/gene/analysis?ln=N JOSÉ LUIS This result has been reviewed and approved by Vic Pelayo MD, PhD, [facility] GLUCOSE (AUTOMATED)2021-12-13 20:33:06 Test Item Value Reference Range Interpretation Comments POCT GLU (test code = 8619206393) 202 mg/dL 70-110 H Lab Interpretation (test code = Abnormal 93614-0) [facility] GLUCOSE (AUTOMATED)2021-12-13 20:33:06 Test Item Value Reference Range Interpretation Comments POCT GLU (test code = 6361364342) 202 mg/dL 70-110 H Lab Interpretation (test code = Abnormal 28066-9) [facility] 20:32:51 Test Item Value Reference Range Interpretation Comments BRAF Mutation (test Negative Negative code = 1283978155) JULEE (test code = Sample tested: [id number] JULEE) A1-8-12(Tissue, LARGE INTESTINE,RIGHT ASCENDING COLON)Marked % tumor cells in the requested area: 70% Test Information: Detection of BRAF codon 600 (Selina 600, V600) mutation may be used to 1. Predict response for anti-EGFR therapy in colorectal and other cancers, 2. Predict response for anti-mutant BRAF, anti-MEK therapy in melanoma, papillary thyroid carcinoma, and other cancers, 3. Determine disease prognosis of colorectal cancer, low grade glioma, papillary thyroid carcinoma, and other cancers, 4. Determine sporadic origin of MSI-H colorectal cancer. Limit of detection: 10% mutant alleles (20% tumor cells). Genomic DNA is isolated from dissected tumor tissue and amplified for exon 15 of the BRAF gene. Mutation status is determined by pyrosequencing. The results are not intended to be used as the sole means for clinical diagnosis or patient management decisions. This test was developed and its performance characteristics were determined by [facility]. It has not been cleared or approved by the U.S. Food and Drug Administration (FDA). The FDA has determined that such clearance or approval is not necessary. This test is used for clinical purposes. It should not be regarded as investigational or for research. This laboratory is certified under the Clinical Laboratory Improvement Amendments of 1988 (CLIA-88) as qualified to perform high complexity clinical laboratory testing. References: http://omim.org/entry/1647 57?search=BRAF&highlight=b pamela Http://atlasFrontera Filmsticsoncolo gy.org/Genes/CMHDXY429.htm l http://cancer.jun.ac.uk /cosmic/search?q=BRAF This result has been reviewed and approved by Vic Pelayo MD, PhD, [facility] 20:32:51 Test Item Value Reference Range Interpretation Comments BRAF Mutation (test Negative Negative code = [id number]) JULEE (test code = Sample tested: [id number] JULEE) A1-8-12(Tissue, LARGE INTESTINE,RIGHT ASCENDING COLON)Marked % tumor cells in the requested area: 70% Test Information: Detection of BRAF codon 600 (Selina 600, V600) mutation may be used to 1. Predict response for anti-EGFR therapy in colorectal and other cancers, 2. Predict response for anti-mutant BRAF, anti-MEK therapy in melanoma, papillary thyroid carcinoma, and other cancers, 3. Determine disease prognosis of colorectal cancer, low grade glioma, papillary thyroid carcinoma, and other cancers, 4. Determine sporadic origin of MSI-H colorectal cancer. Limit of detection: 10% mutant alleles (20% tumor cells). Genomic DNA is isolated from dissected tumor tissue and amplified for exon 15 of the BRAF gene. Mutation status is determined by pyrosequencing. The results are not intended to be used as the sole means for clinical diagnosis or patient management decisions. This test was developed and its performance characteristics were determined by [facility]. It has not been cleared or approved by the U.S. Food and Drug Administration (FDA). The FDA has determined that such clearance or approval is not necessary. This test is used for clinical purposes. It should not be regarded as investigational or for research. This laboratory is certified under the Clinical Laboratory Improvement Amendments of 1988 (CLIA-88) as qualified to perform high complexity clinical laboratory testing. References: http://omim.org/entry/1647 57?search=BRAF&highlight=b pamela Http://[employer] WineMeNow.org/Genes/KRXHUI948.htm l http://cancer.jun.ac.uk /cosmic/search?q=BRAF This result has been reviewed and approved by Vic Pelayo MD, PhD, [facility] P[facility] RBC (in units), 4 Units 2021-12-13 05:15:07 Test Item Value Reference Range Interpretation Comments Cross Match Result Compatible (test code = 4409) ISBT Blood Type Code (test code = 590250) Unit Blood Type (test B Pos code = 4410) Unit Number (test [id number] code = 4411) Blood Expiration Date & Time (test code = 252115) Status Information Released (test code = 4412) Product Red Blood Cells Identification (test code = 4413) Product Code (test [id number] Performed at [facility] code = 4414) Laboratory Services [facility] Blood [address] [place] [address]Tanf Free: [phone] A No. [id number] [facility] P[facility] RBC (in units), 4 Units 2021-12-13 05:15:07 Test Item Value Reference Range Interpretation Comments Cross Match Result Compatible (test code = 4409) ISBT Blood Type Code (test code = 956279) Unit Blood Type (test B Pos code = 4410) Unit Number (test [id number] code = 4411) Blood Expiration Date & Time (test code = 411632) Status Information Released (test code = 4412) Product Red Blood Cells Identification (test code = 4413) Product Code (test [id number] Performed at [facility] code = 4414) Laboratory Services [facility] Blood [address] [place] [address]Sdzx Free: [phone] A No. [id number] [facility] GLUCOSE (AUTOMATED)2021-12-13 01:38:43 Test Item Value Reference Range Interpretation Comments POCT GLU (test code = 9503962440) 238 mg/dL 70-110 H Lab Interpretation (test code = Abnormal 33328-0) [facility] GLUCOSE (AUTOMATED)2021-12-13 01:38:43 Test Item Value Reference Range Interpretation Comments POCT GLU (test code = 1659071981) 238 mg/dL 70-110 H Lab Interpretation (test code = Abnormal 19787-4) [facility]20[facility] 22:07:37 Test Item Value Reference Range Interpretation Comments PHOSPHORUS (test code = 6819698320) 4.1 mg/dL 2.5-5 Lab Interpretation (test code = Normal 46501-4) [facility]10 22:07:37 Test Item Value Reference Range Interpretation Comments PHOSPHORUS (test code = 2619645559) 4.1 mg/dL 2.5-5 Lab Interpretation (test code = Normal 22382-9) [facility]OL[facility] (NA, K, CL, CO2, GLUCOSE, BUN, CREATININE, CA)2021-12-12 22:07:36 Test Item Value Reference Range Interpretation Comments NA (test code = 132 mmol/L 135-145 L 5742787462) K (test code = 5.1 mmol/L 3.5-5 H 7535141714) CL (test code = 104 mmol/L 98-108 5502985569) CO2 TOTAL (test code = 17 mmol/L 23-31 L 8250173229) AGAP (test code = 2-16 9271438360) BUN (test code = 16 mg/dL 7-23 2038848434) GLUCOSE (test code = 209 mg/dL 70-110 H 7354402661) CREATININE (test code = 2.09 mg/dL 0.6-1.25 H 3669055807) CALCIUM (test code = 7.7 mg/dL 8.6-10.6 L 9022999089) eGFR (test code = mL/min/1.73m2 2806026238) JULEE (test code = JULEE) Association of Glomerular Filtration Rate (GFR) and Staging of Kidney Disease* + --+ --+ ------+| GFR (mL/min/1.73 m2) ?| With Kidney Damage ?| ?Without Kidney Damage+ --------+ --------+ +| ?>90 ?| ?Stage one ?| ? Normal ?+ ---+ ---+ -------+| ?60-89 ?| ?Stage two ?| ? Decreased GFR ? + --+ --+ ------+| ?30-59 ?| ?Stage three ?| ? Stage three ? + --+ --+ ------+| ?15-29 ?| ?Stage four ? | ? Stage four ?+ ---+ ---+ -------+| ?<15 (or dialysis) ? ?| ?Stage five ? | ? Stage five ?+ ---+ ---+ -------+ *Each stage assumes the associated GFR level has been in effect for at least three months. ?Stages 1 to 5, with or without kidney disease, indicate chronic kidney disease. Notes: Determination of stages one and two (with eGFR >59mL/min/1.73 m2) requires estimation of kidney damage for at least three months as defined by structural or functional abnormalities of the kidney, manifested by either:Pathological abnormalities or Markers of kidney damage (including abnormalities in the composition of the blood or urine or abnormalities in imaging tests). Lab Interpretation Abnormal (test code = 01089-7) [facility]36 Test Item Value Reference Range Interpretation Comments MAGNESIUM (test code = 2067862593) 1.6 mg/dL 1.7-2.4 L Lab Interpretation (test code = Abnormal 10149-9) [facility] (NA, K, CL, CO2, GLUCOSE, BUN, CREATININE, CA)2021-12-12 22:07:36 Test Item Value Reference Range Interpretation Comments NA (test code = 132 mmol/L 135-145 L 2151153774) K (test code = 5.1 mmol/L 3.5-5 H 4778761202) CL (test code = 104 mmol/L 98-108 1016380959) CO2 TOTAL (test code = 17 mmol/L 23-31 L 9804329118) AGAP (test code = 2-16 2989042373) BUN (test code = 16 mg/dL 7-23 7050247828) GLUCOSE (test code = 209 mg/dL 70-110 H 0252300925) CREATININE (test code = 2.09 mg/dL 0.6-1.25 H 3784675936) CALCIUM (test code = 7.7 mg/dL 8.6-10.6 L 7412601819) eGFR (test code = mL/min/1.73m2 2007991040) JULEE (test code = JULEE) Association of Glomerular Filtration Rate (GFR) and Staging of Kidney Disease* + --+ --+ ------+| GFR (mL/min/1.73 m2) ?| With Kidney Damage ?| ?Without Kidney Damage+ --------+ --------+ +| ?>90 ?| ?Stage one ?| ? Normal ?+ ---+ ---+ -------+| ?60-89 ?| ?Stage two ?| ? Decreased GFR ? + --+ --+ ------+| ?30-59 ?| ?Stage three ?| ? Stage three ? + --+ --+ ------+| ?15-29 ?| ?Stage four ? | ? Stage four ?+ ---+ ---+ -------+| ?<15 (or dialysis) ? ?| ?Stage five ? | ? Stage five ?+ ---+ ---+ -------+ *Each stage assumes the associated GFR level has been in effect for at least three months. ?Stages 1 to 5, with or without kidney disease, indicate chronic kidney disease. Notes: Determination of stages one and two (with eGFR >59mL/min/1.73 m2) requires estimation of kidney damage for at least three months as defined by structural or functional abnormalities of the kidney, manifested by either:Pathological abnormalities or Markers of kidney damage (including abnormalities in the composition of the blood or urine or abnormalities in imaging tests). Lab Interpretation Abnormal (test code = 56511-1) [facility]:07[facility]36 Test Item Value Reference Range Interpretation Comments MAGNESIUM (test code = 8105932874) 1.6 mg/dL 1.7-2.4 L Lab Interpretation (test code = Abnormal 41236-4) [facility] WITH [id number] 21:56:18 Test Item Value Reference Range Interpretation Comments WBC (test code = See_Comment H [Automated 7401-2) message] The system which generated this result transmit escobar reference range : 4.20 - 10.70 10*3/?L. The reference range was not used to interpret this result as normal/abnormal . RBC (test code = See_Comment L [Automated 046-8) message] The system which generated this result transmit escobar reference range : 4.26 - 5.52 10*6/?L. The reference range was not used to interpret this result as normal/abnormal . HGB (test code = 8.2 g/dL 12.2-16.4 L 718-7) HCT (test code = 24.4 % 38.4-49.3 L 4544-3) MCV (test code = 83.8 fL 81.7-95.6 787-2) MCH (test code = 28.2 pg 26.1-32.7 785-6) MCHC (test code = 33.6 g/dL 31.2-35 786-4) RDW-SD (test code = 48.0 fL 38.5-51.6 53501-9) RDW-CV (test code = 15.7 % 12.1-15.4 H 788-0) PLT (test code = See_Comment H [Automated 777-3) message] The system which generated this result transmit escobar reference range : 150 - 328 10*3/ ?L. The reference range was not u sed to interpret th is result as normal/abnormal . MPV (test code = 10.1 fL 9.8-13 80952-9) NRBC/100 WBC (test See_Comment [Automat ed code = 2880736441) message] The system which generated this result transmit escobar reference range : 0.0 - 10.0 /100 WBCs. The reference range was not used to interpret this result as normal/abnormal . NRBC x10^3 (test code See_Comment [Auto mated = 3578785013) message] The system which generated this result transmit escobar reference range : 10*3/?L. The reference range was not used to interpret this result as normal/abnormal . GRAN MAT (NEUT) % 91.5 % (test code = 770-8) IMM GRAN % (test code 0.50 % = 3798744365) LYMPH % (test code = 1.9 % 736-9) MONO % (test code = 6.0 % 5905-5) EOS % (test code = 0.0 % 713-8) BASO % (test code = 0.1 % 706-2) GRAN MAT x10^3(ANC) 13.97 10*3/uL 1.99-6.95 H (test code = 1219009017) IMM GRAN x10^3 (test 0.08 10*3/uL 0-0.06 H code = 5497152477) LYMPH x10^3 (test code 0.29 10*3/uL 1.09-3.23 L = 731-0) MONO x10^3 (test code 0.91 10*3/uL 0.36-1.02 = 742-7) EOS x10^3 (test code = 0.06-0.53 L 711-2) BASO x10^3 (test code 0.01-0.09 = 704-7) Lab Interpretation Abnormal (test code = 12590-2) [facility] WITH [id number] 21:56:18 Test Item Value Reference Range Interpretation Comments WBC (test code = See_Comment H [Automated 6690-2) message] The system which generated this result transmit escobar reference range : 4.20 - 10.70 10*3/?L. The reference range was not used to interpret this result as normal/abnormal . RBC (test code = See_Comment L [Automated 789-8) message] The system which generated this result transmit escobar reference range : 4.26 - 5.52 10*6/?L. The reference range was not used to interpret this result as normal/abnormal . HGB (test code = 8.2 g/dL 12.2-16.4 L 718-7) HCT (test code = 24.4 % 38.4-49.3 L 4544-3) MCV (test code = 83.8 fL 81.7-95.6 787-2) MCH (test code = 28.2 pg 26.1-32.7 785-6) MCHC (test code = 33.6 g/dL 31.2-35 786-4) RDW-SD (test code = 48.0 fL 38.5-51.6 81245-1) RDW-CV (test code = 15.7 % 12.1-15.4 H 788-0) PLT (test code = See_Comment H [Automated 777-3) message] The system which generated this result transmit escobar reference range : 150 - 328 10*3/ ?L. The reference range was not u sed to interpret th is result as normal/abnormal . MPV (test code = 10.1 fL 9.8-13 66566-5) NRBC/100 WBC (test See_Comment [Automat ed code = 3143809283) message] The system which generated this result transmit escobar reference range : 0.0 - 10.0 /100 WBCs. The reference range was not used to interpret this result as normal/abnormal . NRBC x10^3 (test code See_Comment [Auto mated = 1217643879) message] The system which generated this result transmit escobar reference range : 10*3/?L. The reference range was not used to interpret this result as normal/abnormal . GRAN MAT (NEUT) % 91.5 % (test code = 770-8) IMM GRAN % (test code 0.50 % = 0553279487) LYMPH % (test code = 1.9 % 736-9) MONO % (test code = 6.0 % 5905-5) EOS % (test code = 0.0 % 713-8) BASO % (test code = 0.1 % 706-2) GRAN MAT x10^3(ANC) 13.97 10*3/uL 1.99-6.95 H (test code = 9126032129) IMM GRAN x10^3 (test 0.08 10*3/uL 0-0.06 H code = 6391087412) LYMPH x10^3 (test code 0.29 10*3/uL 1.09-3.23 L = 731-0) MONO x10^3 (test code 0.91 10*3/uL 0.36-1.02 = 742-7) EOS x10^3 (test code = 0.06-0.53 L 711-2) BASO x10^3 (test code 0.01-0.09 = 704-7) Lab Interpretation Abnormal (test code = 14263-2) [facility] GLUCOSE (AUTOMATED)2021-12-12 21:42:31 Test Item Value Reference Range Interpretation Comments POCT GLU (test code = 2678661890) 227 mg/dL 70-110 H Lab Interpretation (test code = Abnormal 71589-0) [facility] GLUCOSE (AUTOMATED)2021-12-12 21:42:31 Test Item Value Reference Range Interpretation Comments POCT GLU (test code = 5846090215) 227 mg/dL 70-110 H Lab Interpretation (test code = Abnormal 36426-1) [facility] GLUCOSE (AUTOMATED)2021-12-12 11:23:50 Test Item Value Reference Range Interpretation Comments POCT GLU (test code = 6638037251) 117 mg/dL 70-110 H Lab Interpretation (test code = Abnormal 96802-2) [facility] GLUCOSE (AUTOMATED)2021-12-12 11:23:50 Test Item Value Reference Range Interpretation Comments POCT GLU (test code = 9284408228) 117 mg/dL 70-110 H Lab Interpretation (test code = Abnormal 48866-7) [facility] GLUCOSE (AUTOMATED)2021-12-12 02:08:28 Test Item Value Reference Range Interpretation Comments POCT GLU (test code = 3187191021) 126 mg/dL 70-110 H Lab Interpretation (test code = Abnormal 78745-8) [facility] GLUCOSE (AUTOMATED)2021-12-12 02:08:28 Test Item Value Reference Range Interpretation Comments POCT GLU (test code = 3935006079) 126 mg/dL 70-110 H Lab Interpretation (test code = Abnormal 88855-4) [facility] Packed RBC (in units), 1 Units 2021-12-11 23:14:05 Test Item Value Reference Range Interpretation Comments Cross Match Result Compatible (test code = 4409) ISBT Blood Type Code (test code = 165562) Unit Blood Type (test B Pos code = 4410) Unit Number (test [id number] code = 4411) Blood Expiration Date & Time (test code = 014496) Status Information Issued (test code = 4412) Product Red Blood Cells Identification (test code = 4413) Product Code (test [id number] Performed at [facility] code = 4414) Laboratory Services - [facility] Blood [address] [place] [address]Mkup Free: [phone] A No. [id number] [facility] Packed RBC (in units), 1 Units 2021-12-11 23:14:05 Test Item Value Reference Range Interpretation Comments Cross Match Result Compatible (test code = 4409) ISBT Blood Type Code (test code = 235343) Unit Blood Type (test B Pos code = 4410) Unit Number (test [id number] code = 4411) Blood Expiration Date & Time (test code = 542165) Status Information Issued (test code = 4412) Product Red Blood Cells Identification (test code = 4413) Product Code (test [id number] Performed at [facility] code = 4414) Laboratory Services - [facility] Blood [address] [address]Cysa Free: [phone] A No. [id number] [facility] GLUCOSE (AUTOMATED)2021-12-11 23:13:30 Test Item Value Reference Range Interpretation Comments POCT GLU (test code = 0527250178) 248 mg/dL 70-110 H Lab Interpretation (test code = Abnormal 10363-5) [facility] GLUCOSE (AUTOMATED)2021-12-11 23:13:30 Test Item Value Reference Range Interpretation Comments POCT GLU (test code = 0613721351) 248 mg/dL 70-110 H Lab Interpretation (test code = Abnormal 13883-0) [facility] GLUCOSE (AUTOMATED)2021-12-11 17:09:53 Test Item Value Reference Range Interpretation Comments POCT GLU (test code = 2763895422) 260 mg/dL 70-110 H Lab Interpretation (test code = Abnormal 31072-0) [facility] GLUCOSE (AUTOMATED)2021-12-11 17:09:53 Test Item Value Reference Range Interpretation Comments POCT GLU (test code = 0498480134) 260 mg/dL 70-110 H Lab Interpretation (test code = Abnormal 60311-4) [facility] GLUCOSE (AUTOMATED)2021-12-11 13:20:03 Test Item Value Reference Range Interpretation Comments POCT GLU (test code = 1369918780) 156 mg/dL 70-110 H Lab Interpretation (test code = Abnormal 76152-7) [facility] GLUCOSE (AUTOMATED)2021-12-11 13:20:03 Test Item Value Reference Range Interpretation Comments POCT GLU (test code = 2429740700) 156 mg/dL 70-110 H Lab Interpretation (test code = Abnormal 20836-6) [facility] GLUCOSE (AUTOMATED)2021-12-11 01:29:19 Test Item Value Reference Range Interpretation Comments POCT GLU (test code = 4242757683) 299 mg/dL 70-110 H Lab Interpretation (test code = Abnormal 63996-9) [facility] GLUCOSE (AUTOMATED)2021-12-11 01:29:19 Test Item Value Reference Range Interpretation Comments POCT GLU (test code = 6535497085) 299 mg/dL 70-110 H Lab Interpretation (test code = Abnormal 45541-4) [facility] GLUCOSE (AUTOMATED)2021-12-10 22:02:08 Test Item Value Reference Range Interpretation Comments POCT GLU (test code = 1240085113) 116 mg/dL 70-110 H Lab Interpretation (test code = Abnormal 29440-2) [facility] GLUCOSE (AUTOMATED)2021-12-10 22:02:08 Test Item Value Reference Range Interpretation Comments POCT GLU (test code = 7962582129) 116 mg/dL 70-110 H Lab Interpretation (test code = Abnormal 43204-9) [facility] GLUCOSE (AUTOMATED)2021-12-10 17:24:07 Test Item Value Reference Range Interpretation Comments POCT GLU (test code = 8724683011) 273 mg/dL 70-110 H Lab Interpretation (test code = Abnormal 72259-0) [facility] GLUCOSE (AUTOMATED)2021-12-10 17:24:07 Test Item Value Reference Range Interpretation Comments POCT GLU (test code = 6449405507) 273 mg/dL 70-110 H Lab Interpretation (test code = Abnormal 30381-4) [facility] GLUCOSE (AUTOMATED)2021-12-10 13:17:50 Test Item Value Reference Range Interpretation Comments POCT GLU (test code = 1351035248) 139 mg/dL 70-110 H Lab Interpretation (test code = Abnormal 63911-1) [facility] GLUCOSE (AUTOMATED)2021-12-10 13:17:50 Test Item Value Reference Range Interpretation Comments POCT GLU (test code = 5641571568) 139 mg/dL 70-110 H Lab Interpretation (test code = Abnormal 86583-0) [facility] GLUCOSE (AUTOMATED)2021-12-10 01:35:40 Test Item Value Reference Range Interpretation Comments POCT GLU (test code = 9002653796) 186 mg/dL 70-110 H Lab Interpretation (test code = Abnormal 42991-8) [facility] GLUCOSE (AUTOMATED)2021-12-10 01:35:40 Test Item Value Reference Range Interpretation Comments POCT GLU (test code = 4498606873) 186 mg/dL 70-110 H Lab Interpretation (test code = Abnormal 82247-8) [facility] and Screen - ONCE [id number] 22:28:58 Test Item Value Reference Range Interpretation Comments ABO & RH (test code B POSITIVE Performe d at [facility] = 20) Laboratory [facility] [place] [address]Sdkv Free: [phone] A No. [id number] IAT (test code = Negative Performed a t [facility] 1185) Laboratory [facility] [address] [place] [address]Rapg Free: [phone] A No. [id number] [facility] and Screen - ONCE [id number] 22:28:58 Test Item Value Reference Range Interpretation Comments ABO & RH (test code B POSITIVE Performe d at [facility] = 20) Laboratory [facility] [address] [place] [address] s [address]Srry Free: [phone] A No. [id number] IAT (test code = Negative Performed a t [facility] 1185) Laboratory [facility] [address] [place] [address] s [address]Ktei Free: [phone] A No. [id number] [facility] GLUCOSE (AUTOMATED)2021-12-09 21:19:40 Test Item Value Reference Range Interpretation Comments POCT GLU (test code = 5426816057) 253 mg/dL 70-110 H Lab Interpretation (test code = Abnormal 15582-3) [facility] GLUCOSE (AUTOMATED)2021-12-09 21:19:40 Test Item Value Reference Range Interpretation Comments POCT GLU (test code = 4145323530) 253 mg/dL 70-110 H Lab Interpretation (test code = Abnormal 31008-0) [facility] GLUCOSE (AUTOMATED)2021-12-09 16:28:31 Test Item Value Reference Range Interpretation Comments POCT GLU (test code = 1551865194) 156 mg/dL 70-110 H Lab Interpretation (test code = Abnormal 89374-4) [facility] 16:28:31 Test Item Value Reference Range Interpretation Comments POCT GLU (test code = 5451852832) 156 mg/dL 70-110 H Lab Interpretation (test code = Abnormal 04258-6) [facility] 14:37:34 Test Item Value Reference Range Interpretation Comments POCT GLU (test code = 2925454580) 227 mg/dL 70-110 H Lab Interpretation (test code = Abnormal 63611-8) [facility] GLUCOSE (AUTOMATED)2021-12-09 14:37:34 Test Item Value Reference Range Interpretation Comments POCT GLU (test code = 5939716264) 227 mg/dL 70-110 H Lab Interpretation (test code = Abnormal 37236-0) [facility] GLUCOSE (AUTOMATED)2021-12-09 02:23:09 Test Item Value Reference Range Interpretation Comments POCT GLU (test code = 4897072898) 174 mg/dL 70-110 H Lab Interpretation (test code = Abnormal 42005-8) [facility] GLUCOSE (AUTOMATED)2021-12-09 02:23:09 Test Item Value Reference Range Interpretation Comments POCT GLU (test code = 1317540410) 174 mg/dL 70-110 H Lab Interpretation (test code = Abnormal 56672-4) [facility] GLUCOSE (AUTOMATED)2021-12-08 21:45:50 Test Item Value Reference Range Interpretation Comments POCT GLU (test code = 6230639985) 158 mg/dL 70-110 H Lab Interpretation (test code = Abnormal 48742-5) [facility] GLUCOSE (AUTOMATED)2021-12-08 21:45:50 Test Item Value Reference Range Interpretation Comments POCT GLU (test code = 4353071115) 158 mg/dL 70-110 H Lab Interpretation (test code = Abnormal 16623-2) [facility] GLUCOSE (AUTOMATED)2021-12-08 17:41:02 Test Item Value Reference Range Interpretation Comments POCT GLU (test code = 5883355821) 163 mg/dL 70-110 H Lab Interpretation (test code = Abnormal 68165-2) [facility] GLUCOSE (AUTOMATED)2021-12-08 17:41:02 Test Item Value Reference Range Interpretation Comments POCT GLU (test code = 5615171770) 163 mg/dL 70-110 H Lab Interpretation (test code = Abnormal 19044-3) [facility] GLUCOSE (AUTOMATED)2021-12-08 01:51:03 Test Item Value Reference Range Interpretation Comments POCT GLU (test code = 2038837071) 148 mg/dL 70-110 H Lab Interpretation (test code = Abnormal 90389-1) [facility] GLUCOSE (AUTOMATED)2021-12-08 01:51:03 Test Item Value Reference Range Interpretation Comments POCT GLU (test code = 2837478391) 148 mg/dL 70-110 H Lab Interpretation (test code = Abnormal 33096-6) [facility] [id number] 23:44:35 Test Item Value Reference Range Interpretation Comments Case Report (test code Surgical Pathology ? ? = [id number]) ?Case: [id number] ? Authorizing Provider: ?Job Alston MD ? Collected: ? 12/05/2021 1623 ?Ordering Location: ? ? GI Endoscopy OR Department Received: ?12/05/2021 1905 ?Pathologist: ? Johana Wang MD ? Specimens: ? A) - LARGE INTESTINE, RIGHT-ASCENDING COLON, Cold biopsy ascending colon mass eval ? malignancy ? B) - LARGE INTESTINE, SIGMOID COLON, Cold biopsy sigmoid colon polyp rule out ? malignancy ? Final Diagnosis (test z2cbkVDyRCIzw6seUQAwfZ code = 5591589345) FuZzEwMzNcZnRuYmpcdWMx IHtccnRmMVxlcGljMTAxMD GuGO9xgGhsgBw1iNhaETFd qzP8vSDzUBikf3lhXKL6q2 cslyxpTLSiDRapZy4vaQSo wJerRtFgXLOkYHy3oZ31DE YmvJ4xiESfYXl8XXDrdQSl kmMuNhGoVEFrqJAntID2DX LpNM0nvshcOJtgVIijRTPc yrY8RZAqwRVhD0HxPZUrXK 0jegypRRS4CTilTDKpFAR5 CnBtCUWjc5Gkabo5MlLmtJ FyZFxwbGFpblxmczIwIEEu YJMGI8RWVEeQDxQRY8vQXa vbN64LRVSXCH6VY0qxL5Mv LACTJyitjYMdUHEeQD8tUT 9ERVJBVEVMWSBESUZGRVJF HcAMODKRHBYZBSESP5DXVy VUXd8OWIllCAEsYKAcYOGO SSLHU9WnJ9KHENQFMJ4PGn RccGFyXHBhciBCLiBTSUdN S0dUARLSPQ1XAKUXX0hOCF EBB7GPRXAZJsQQW1uAEOdg uFOoIYQpDL0cDO1VORAEGK VMWSBESUZGRVJFTlRJQVRF YJONXEUSL4UNOaBYGe8XSF viDKBaMKIpBQDEYLCGP0Dn V9SKPXYEFL2WAkPjoFOoMS YvgwROPLIybNjomrQnZF8a MLqwo0IjTLYCSLWvWIEpBQ 4nXRGfWXW8PvYbWGUTVXEz be52TGS3SxCka4S4FZKbEj DzVXIeND9vaIjwVSXnKK7b VYEcT1htuR6hkky7JrMdKC XhXrJ2BUDichX0Dma6DXJq TCfcf4pgj2ZqQ7RhrVAssE s6r1cpTBCiIyR0rSJeKFsf C5tuxmSqgNYyLKTqSGt1vX wcQxFlTITiy1psuaVwIpIg LCSjVAToVLPioYlvoqb3zL 18SKJdjW6weBDzTAxlijVt EbK3ULypQBDjXkV6PTLcfV CeRDTgN9nmGZUxUXgiORWj YUxzmJDwMYF8fDyco4S2pM VzaGVldHtcZjBcZnMyOCBO s8GjZLz8sTinX6LvWTJkNk L9dSVqRRWzPTugRIHyDUMx uhQ9yS73WIyrrdV2dURqa0 Fwn82uj531fD6beEMhANV4 MQXdUDNxyZZuLAUrVEC3ZL XnwWGfQ3keDTVlYF8qwszz SLowRWspTQTzaUZ4EFDocX QaC5ToTVCzSKvoAVZaotl5 EjKlUd5ylMYieLszKPrus1 nfk3djrNVzWvg1JOSgQwCo NxqhDCfyx1Obt0eeJGRaer 2lQDV3ySQmmCtti1A5cRWm AKDejJAdlgMwIWBbFfT7IF meWV9mxv71NFYxASB9ep3x bGNccGdicmRyaGVhZFxwZ2 KgRIGgw100IGLhC1DsNCZm f4F2noDfKlTlIDUjdWY9ie R6WEFbDAp8tNMachB5vvCd nOTaD2lbdT1rARGxPB3ubn shp7mwZBqnHGrwKFHbcIX9 irM4YWSyiUOyV4SjdP5hCH BjAUxzIVYiixg7UlVkBs1d dGVyeTcyMFxzYmtwYWdlXH BnbmNvbnRccGduZGVjXHBs YWluXHBsYWluXGYwXGZzMj ErnUaftOntkB8mEiSySmQe VImkUW2gBKJtR1tuwGIzGG SlHBFtB6akJkOmpI0bjVnk MVxjZjJcZnMyMFxwYXIgSS BoYXZlIHBlcnNvbmFsbHkg ewB2jCB6GVAtKWbcHOHjSB UzcDItww6exKjvCSBxLT4r IGFncmVlIHdpdGggYWxsIH Y9SIRkvLHiuSRryKQlDKOu eSByZXNpZGVudHMsIGZlbG kpd1Kit6WudRA5aW3hu5af i9MnUEJljUX5SS67wdN9uY 4jTQDeOR6sEUNpRX8viRBo uMAbUVEcg07mxAnghlWjEH BvcnQuXHBsYWluXGYyXGZz MjhcbGFuZzEwMzNcaGljaF xvHbcmAgOjUEMvFKcaX7gt FwLnQyCjCNleAVK0oE== Final Diagnosis Comment m8ffnRMsDXCrkNEtXBZxY3 (test code = nsczBpEEGmlBZoB0Ksnxhc 1029158326) BYgyGQ7bYT8hdTgtfKYgpX CxOVCcOkLab2wyd507qWPn p4juBUJGlqdhnWy0eZcgM8 9tn0U0RciiZ5xpOLAjNWMz G3CrSA8xDVNjObg6ZJV7ND tccmVkMFxncmVlbjBcYmx1 VQV2mPwdNjvrkRR3oAZdcU B6WHgih5BdmAqtrKwsNVfo xAC3oMMfbBdrgOGtPR7bo9 ysaQA8tgJyQLX9iDprzYJ8 iZblslloi0ebtYH6tSL4OT wwqAX4OYikBlHrTRyqgoYh enVwfiXatTL0OAowFmUmmS X1GOgkeCWjiNU8PVxwrXM8 TSa9OHa8JHdvWoomSWMsO6 88QTfhzpOjylFgCnKzt3ss FFY1bQpovcAgHFrrCH77IW lei9TgMYRmmUuiAOOijR8a SdZugDH6ZJtuBgItMHjqUY TwwTjgRIndYGKhiDH8KJZ0 BOCgl3ocZCGuyLZrdMVgXa XnCHywKG11pAjobJC5AShl vR9gZNBzEPwyCJd4GFHtId D8p7arnQG4hGP7LEojfDF4 ZWxuZmMwXGxldmVsbmZjbj JceIS0QBgfHnLcsMX6EGsv xDXasQE9QOwnzMJ7XFr6OI b1UMxhTkawGOVwH101ZAgh dmEeccUfJvIip8ctFOG7jT xmczIwfXtcbGlzdGxldmVs XGxldmVsbmZjMFxsZXZlbG 0oU60bBYtbnlZavbHwCXum ycIxo7AyhnYciSK3DVwfde YhrVS3iUvhFYJhUsYwIlj7 k7gxIFUkiC03xGMotqHnWc EiW03aOkHtGP58HMonc3Qd DLQlcDjzTNMdpZ0qFjPncL Z5FZifUeRqAIfhPFKsaAqt VNvkCBXnmJD5TLS9NXDnm0 xsZXZlbHRleHRcJzAyXCcw UQ14cDvlbNZ1ITfxoZ3iIG HgBWjgVIr8WDJqXgX2h4wy jUQ1tYH4YAkldUX1TOdfNr MwXGxldmVsbmZjbjBcbGV2 OErgQsDtwJV0HNjixZHhrM P2RMzzpEI7AVi8HXv5ZKld LaywHAMmF611EYbmuyIbex HeMrNpf7zvZUD4wGvtelNg fXtcbGlzdGxldmVsXGxldm ZggnPiIOtqECWouI6dQ49f XGxldmVsamMwXGxldmVsc3 PwzgOroSH9FFcmjmUkkRI0 yFtaHMZoUvQ8Bly3r0bcFE WmaU58tBVqsfUyYcWhM10g BsVxML27JKjlr7JpPXSmtN xnNUYknT9uIsHfpXB6RLdt ZmNuMFxsZXZlbGpjMFxsZX NhzTH8RSL3QNHhw0vbOCRf jFUviSCnGrWpWMnrSm10lO tbdXS7DFfqoH6pPWQdAQzc BQy6QNJtNgT1z9zcbFZ3vB E9YDgkiPB3FWszWtJwJKtk ivMpxoMpceFzeZC7KLmpTp KnhEV1DEhcyYRrqBS4BAvi mOD9KDu0EBt2WDxjTzdoDJ ciD522ZDzbswUdkuNqLiCq b5loRWZ8nZrdjfUsnM55p4 jtRYwfk3IbvsDankieBOGs Mhrtq1mnHMjzv3FziuUfvp aeFYcuvTL9qEBwIGqof6Aa slNzeudiNRKgsC92MTwxob C1aTocBHFhkonuUcX5NOeu JCFvjupkIYo0OFpiKFZpoI X9QKWkmONkO7CxJOAeHM3n ljz7CVA4WWaiEAPhQtP1FC YwkHClIANkzEwgBKhkj360 TAT7XuGoBKFawgVzbQbhjA 4ySqBxPBhabBMocIQ8ZHAO k4FfZnKdYt1QQAX4zH7nhm VkUFTbRDG6BxgqG3OeeX8c WA5ZCGICEjQKRxJhJTUlSK VqeXYopZIfn5MsJIJZPNPv YDKMt4paY3HaNCFfQM5osX lbjUMfGFXlmmvmZGZyAY8w OAW2dULhBYJ2gYM7QAWxto SZKxLUZ5LGYUXnApLZGuRa YXMgYmVlbiBvcmRlcmVkIG WoNCR5fAcrCOZhKDWkvM5j zYUoKTqnPMXBFHYzp9VvDT HkvKNmiT4ySXQgqssvkKHo fVQ5XQrsYPSoRQphd6NnQM GoYJ7kXDN9hUMzZB9kSF0u W7Xxo2X6EXyyrMLqPKhml6 LwAbircTS3NHhIB4iwRQQ5 SWqnkKKsi5drl2OmZ8pytO gujPO9WVyBXVLpGhnsXSPd hFJtAKEyZRG5gFGhmKToe5 NaiGizgyQcJxSrRCJul6Hs elJbku9xKPv+NYUsp4RiSH BfBBOuJFGUUYtnm9LjHKN5 y2YbPZTirjAhxoPvqLQ6qC 9uLlxwYXJccGFyXGIgQVND JF7WVP9KHVHLDG0MNJXKIT 7WVGqFNXm5LHSipqktLXrq YXIgTUxIIDFcflx+XH5cfl x+HK8tkpa+QT3vlyt+XH5c flx+BU0pezx+FE5ignAfb5 p3dQRtVX15H8mpUPKmh5Ha sN4ojxltANUbyvKUDHUyVH 5cflx+LH6yrga+RZ6xvyh+ JN8otie+UJ3djce+XH5cfl x+CF8itlm+GD8bqIGawjWq bnVjbGVhciBzdGFpbmluZy YpdWYxEE2IRTNcymd+XH5c flx+NY2gilw+RF0pqqi+XH 5cflx+WN4axnj+OJ0bqwo+ YO9gqONzjxGdwhGawNCaog OykWXkrviuZwEnkPErMT5W SDZcflx+ZN3ghfo+XH5cfl x+CT9pyfd+FQ3twez+XH5c flx+JY8cyrc+GU6rkGFpeg UgbnVjbGVhciBzdGFpbmlu X4uuXPSieTSnAPehsCKobL JiiLQ8uW9jTM8vDC4AWXGw oNLzg8A6xTJnZdcnECmUIN Gvi2KucDybUKRiJOzcpr8r ODUnwOhpbBNcb5BjMsubTA xwYXJcYjBccGFyXHBhciBD bGluaWNhbCBTaWduaWZpY2 FgK0Myl0PeR7UskN3ekwlp HJQ5hXApfwL8PDQoxzj8ua 97TJm4ooIkRCQhaYBecHPf OZVbVkljJZRyeODuKAe5OC u2hqUtVQLzlaVcxHBsETWx bxdtSTBizLKtVIMnJ9dkrS FwtQZ4EYviuYHuORY4OJDy TXYfIAVcGVX0VREuTbYhov NmMlxjbGJyZHJsXGJyZHJz LPQjNEG5HSJlOkVawpFyFc xjbGJyZHJyXGJyZHJzXGJy FDT4MOVtQpCaymDyIxiyiF JyZHJiXGJyZHJzXGJyZHJ3 MTBcYnJkcmNmMlxjbHZlcn YsgPKeTUFyU3TfQTyZnTK7 qV6nLNpxsJV4g7rrGKUxO5 kkwKgZmAY0nREkTmTiB2Yt nFcgRZJxUCZxK0KeGOVlAC NsYnJkcnRcYnJkcnNcYnJk papfRLnhhqXkF3VbOKDaHh JkcmxcYnJkcnNcYnJkcncx GDdjbzAkQ4EpLLDiTmNrlh JcYnJkcnNcYnJkcncxMFxi gnUbE8PcLZStKvLujtFeIh JkcnNcYnJkcncxMFxicmRy J9WwZYGvetMtsSSnrBvpcA dmY5wzrTjbGBPjRAO7GGLw UkKnN1lqaJbvHFFgy1tfVH PiHTIeXNEhrHf4VZo1HWaj zPTxnQV4YOikmOZzVAM1CS HdVWKuDVUrUSB7UKPeFkFy cmNmMlxjbGJyZHJsXGJyZH UkPBVjLJI3NJNbXqYnobYf MlxjbGJyZHJyXGJyZHJzXG QuDBZ9JFRkMnTyxcEbZqqb bGJyZHJiXGJyZHJzXGJyZH G5LGFwGcJknwAvVjcvuNWg xsAqsEXsRZRaN7MtZUcBmR A2jR5nWAfqbUU4b9bjMFIc A7ygkZeRgOQ4pIypXekdJB aufED9DBgvC9qiFvAvxFVw U6yrsdKzjWsfjkWgh7xyto VemhPtCWVdUQGmVvKaO4ow obIbaGbqjbLim4vgxrPvhd IiHFHyMGNoOmXdJ0aanwTz tabrlyQev3kzitDlzyDwEO TmYFBiFlOtC9ghuwVkEpdi poLgz2ebgsCqkfShYHDnLB YrAdGgV3x8QEH6JUw1HMRw aDEgxEE0F4xeeHxfZoncY9 ckeOTXxQN9xZLcD7c2W7qe xEc4SpTpU1KdpEalUNC5IT SxM8IyMZOfNYOsHcTgfpGo YnJkcnNcYnJkcncxMFxicm BhC5MaGLIbZnMuwmwbCnHn cnNcYnJkcncxMFxicmRyY2 YyXGNsYnJkcnJcYnJkcnNc DzErfzslUZdxpfKqE3IqII NsYnJkcmJcYnJkcnNcYnJk egtbVYkncaTzJ4TzSNIzpv NhsFFjnZotlRkcD3pjpZur PUXpPZWkTGOvRlWnL1nsuI ioSIFcr2xzKUNxKUQ8OBLw rRk3MNmpTOvalDYjuTE2OH pzbZUmQVM2ZCJwJGUrKWVb IQK2WBAaKaBureHjYtavhG JyZHJsXGJyZHJzXGJyZHJ3 MTBcYnJkcmNmMlxjbGJyZH OcGIFjETSkODRqUQF0DRSq YnJkcmNmMlxjbGJyZHJiXG UeCXNjIFPcLGL4VZRhDeZx cmNmMlxjbHZlcnRhbHRcZX FrO3GnTPgIfXS5mF1dBOox aBT0b4wtFEYrT2cwyZyBzU T2xBD9FJyxAOrgoTZ7Siuo M5xsFmYqtWBtI6flnhJttK qhiyWpm9znmhEakmGrOPNb BJPeLxVfB3epejAiwHpdoc Mcm9ruvbKlccVwVNJwJNHe NeLkJ5tqsnEdidxkcuTci3 xicmRydzEwXGJyZHJjZjJc A8nxxiJwOigqhwFld0pzpr FsnwNgQQAmYUHeZcTcV1x9 TXA4TUu9ULYymEYjmGD3J5 hojStdLuzwA0mvrANLnZD6 pCWnM5s4P0bqhPiaXuB0ZN QwpFv9NaQ7NXnpzVMsuAZ1 JEgjwXTfXYU7IRGnVCVyLF OsLLW4ADIxQbIsfzAyQpir bGJyZHJsXGJyZHJzXGJyZH D6AXFkQeMqjjUeNbrkdTSb JBKxESZsIZMwLZHxRFM6FH BcYnJkcmNmMlxjbGJyZHJi GWXcOKScCFEzFYU8IOHzHx JkcmNmMlxjbHZlcnRhbHRc VQIgE1HlOYwMcIE7oN37J5 yguKN0m5rsRRHpE1tayCuH nOB8sSK7JLXkL2GsiHx8UI y0VSSwdwAcmT10VnmzNPE0 dGVybjpcflxjZWxsXHBhcm TpkB85OyhdHEdKSKbwqnmc RGzmPVMiydZzwR42FuikNB 1TMjpcflxjZWxsXHBhcmRc eE59LrgsQNETJqvqgsyaVA heDGWizjWcgE51CotwCDJN NjpcflxjZWxsXHBhcmRcaW 23NwzfOILRFF3jO6FgxEcw TSEvYTfldFBlYOAfbS3fW2 LqNZ2qE5YztBysOCCpMEyg tUGdQNC4pZ3sq2z7CS3vL3 KcpZmexyVudZqft6xpqMDv m8SuwXDujZDny5k4yuCdLA RmdDNcdHJwYWRkZmwzXHRy dDNvTPo0UWv2ldQvIXYdci NcdHJwYWRkcjkwXHRycGFk WYKaI7lfdKZbpOB2WAeadR NmIYW6PGIiDWOnUOWsEWO0 MTBcYnJkcmNmMlxjbGJyZH CyROQsAZQlCMXgGGF8SHRd YnJkcmNmMlxjbGJyZHJyXG UfDNLhPAAbHWZ6HBMdDgNv cmNmMlxjbGJyZHJiXGJyZH YhZICrBCF7VFMxEbObqyFu MlxjbHZlcnRhbHRcZXBpY2 MaWStRiQN3qW8mTTvxyFY6 v5ooOEDfD7llnXbIrTU6bR CiNiYvH7IpeCihPDYwUBVu N7YjIEZjHAUjFrVhzfNhJa JkcnNcYnJkcncxMFxicmRy A4YmPGYlLtFnppizQhFula VlHjWregizPXxsmgErO0Ic XGNsYnJkcnJcYnJkcnNcYn XbjppvKZuxzxLmW1JmMTUy YnJkcmJcYnJkcnNcYnJkcn bnBVujuqHlQ1HcPMJboxYz uCBxmFejfUwrY8fxmXifOJ ZiAPX8XSUpLnWuN9yqjXva TEVhj6qcUNJxVLRnQKAocO h1LTl6HSxceCWntUT0YIgu jMWtYIK2FCCgKBAhFLOyJL C2VMEzTkIwdwUqCligwTPm GZIpLAKrUAAjISTkSFJ3QD BcYnJkcmNmMlxjbGJyZHJy BRSwFPIyUDGcWAL0HSUbHi JkcmNmMlxjbGJyZHJiXGJy QJHfFSYpERI2POVvQpJtbi NmMlxjbHZlcnRhbHRcZXBp R6QmOHfFyOG7iN7zRCzjfP Z5c5uhJJQcK6cdzWpEmSY5 oFqzLpjrGNhzyED1KRahU4 dpNcEmfDAtN1ifyhJgwVlt jlScf2ccyjZffnIsNBBlZM NqRvIwA9anhoNcyZafmjDa t1drxbIccjHvTICgGFUeJa TzO1yyppPaysnmgtRdq6qi cmRydzEwXGJyZHJjZjJcY2 aezjUoXmytyfDwi5gllhEa vjKtHDKePLJxIsMuU7o6OW G2OKf8QTCpwNQayLR1M6hr hJsjQvlaJ8mnjYOSeZX4uW XgQ2n3M2nuvFz8WeXgY6Nt yQcfUCN2JYDmP3JvJEGtJW NsYnJkcnRcYnJkcnNcYnJk hsaoLPcijjWoX6NkDULgWr JkcmxcYnJkcnNcYnJkcncx UGlxctSyL8DjLMCxYpCixi JcYnJkcnNcYnJkcncxMFxi ueEhB4MlDGZjXrDimbCeRf JkcnNcYnJkcncxMFxicmRy W6EjZXKqufGdzCGcgUbqtN aoU1pdtTnyGYIdYNMiXCMl MfGxB1umyPpxJUKbg5moQV WsDWJ5LFMnhEm1ZQysPMjr rKJbbLO5PLnvmFDyMJO7RL UgABWmAOPyXSA7VZHrTgTv cmNmMlxjbGJyZHJsXGJyZH XbQAJfSPL4MXFlRaGauoAv MlxjbGJyZHJyXGJyZHJzXG SoWXX7MTSdJcCrvfNyIgfa bGJyZHJiXGJyZHJzXGJyZH P3FWAfPkGckbHgNpgcsESl xyWzsVXcPCBlU8AuHYhDrX F4bG1bSXdrpRN1c4goDUFe Q3fbtRqUcTU3pZF6HApzOQ ydjPM6YfahX9qcGrEoyWIm P1beagJkeBfmerTic2tyle ZuqtYqPHMrVMRyOhQcL5zc qjAveNihdnSbp3tcniDshp PmESKaLTOtVwFkJ2nrofNo suzrigAyy1qdixEheiRcRA SjEPRzKlFrV7joqkHbEffe slAdm0vhhnXiimNgTGDvCR CrYdEaF2r3QKE5HWo3EJEo nHVeuVZ1B8hacFyaAkucL6 mknCZWmMG4gWBiC6n1R9dp wUafXoS1KAGkqYg5YeD5FB dfnNGzfMR3XCjbzBIiTYS6 LGPaKAErFAQsZNB5CQTpAc JkcmNmMlxjbGJyZHJsXGJy KXUlYXHdKQV2JFVvSbOlgn NmMlxjbGJyZHJyXGJyZHJz EMMoBPK5YVAaIbGuydZrTl xjbGJyZHJiXGJyZHJzXGJy EYK5IMVcBjJcrlBfLyosuA NmqvEnbURePBJrD0SaZWbY qSQ9iN99A2lbwPU4q6viMR XjZ0gvtKvRjLG7qAA3ZUSo P4RopVr7EEv6HUHjhlKqtE 50YmwgMVx+XGNlbGxccGFy YZqqmkFvnZNiMV4sC9XhvR xwYXJkXGludGJsICtcflxj GMowOYItmqXvsO09CkhwK0 x+XGNlbGxccGFyZFxpbnRi rXEmHW8nJ8PhqSuvGCQxPM rdkKUaZX4CMkPandEDW3tf TFx+XGNlbGxccGFyZFxpbn RibFx+F3MoopTaxJZkqjBn pveqUPvdVWHturLxdK25Bn xcflxjZWxsXGludGJsXHJv i6ygYVWmFCRrvsHWB9YiaH eqxd9sKLErbJyxsTZpu3Ez ZbbyNOYTL1byQOfcuD23ZC Ogr7ZnQnjfnKI7TP5xBR7o J2Wml8Y6KNzeeMLyIBmfq0 RhYmxlXHBhclxwYXJccGFy VWBdU8rZAY2BQJHDW0lAXo TUUR6JKmQjKsWhWuyeMUKt GvCceSLoFF4DUOBzXR4vxe x+ZX6iomj+RX6aprc+XH5c flx+SC3hypo+RB0krid+XH 0Iv8OpaWk8VNEezAGxSBAq PQO5CMpbzL4fLFhzJUDaLI 1TMlx+LK3yecs+CE7ymez+ JG5zazr+SM1asqz+XH5cfl x+ZP6uzqm+OL2cmmLkd4d2 vPPnFN83B7viZGFgl9ZkyA 2wygdsTAMbbrRQX5irTE0y flx+KF2lhrp+NZ1bfob+XH 5cflx+XE8qpad+EY7voio+ CT9bpxKrc2c5pCBdJE51X9 nfZLSnz4BthC0kmrdpKLDe puBGM9z8YR7wuud+XH5cfl x+ML3vrwb+DU5qchh+XH5c flx+IM1huyt+AF4rsxEor9 i8wKAiFL16F3gaXFWbi7Ps lO8ksrgowCQoVSPahhZOlc RlcnByZXRhdGlvbiBvZiBN R7bneDcljr73iMDkGXJ0FT vGXzQuIAT2rOU1AIbbUB8s R8Cmv6D4MLprmJFtUXJ9GD JsZSxccGFyXGIwXHBhclxw GADsC9hxswnaJWbhD4brin sjaAAiruSxCG8dDOO0SQyz eD1uNIEkuAPwjq1dBtcnEK BcgOMbb3ShW8fzVcHnwWCl B8shmgXsoVqhijHdo1myjo OpdqOoYJDpYOWwUpFbU2ky saVzdTmllkCtm2zruwWyyo VlACNzLVDkOzSlA7lprtSz ghxtmsIop2vrskRzjjSeSZ KtPPSeWeRnW2zewzGwNmyq nmBds9myehQesvJjNWEfUM MjAaPiY0m4IRE3MDc9PGUs XuJtX3xcsSqzEVOmj7hqUT HbYJM6LGusPJzhsJOgYxZf S3akFxKywDNjS2mmpcGnhV lpfyYtk9rdknOqgnZhXFSm NRQxVaVcL7bhamQsdGmkof Wbc0betpGolcLoUVMtZYBt QbKkG2cfjsWzddyipxZhu5 xicmRydzEwXGJyZHJjZjJc H9bygsEyHygyqeIuu5nhvt YjtrTsOHSaMNXpEnFaE5u9 ZCT7OWf8RNFoWkJqS0fmxR zrCJDqz6xtFTEwAICyAJIi aNt2LQr4PKjdnSBaoUA4SG ggvATyPQI8SCDwFFRcFEJw ACK8TGFtPxZncfHwDjkpuD JyZHJsXGJyZHJzXGJyZHJ3 MTBcYnJkcmNmMlxjbGJyZH GiCLPgXGCgBBZsXPO8SGVj YnJkcmNmMlxjbGJyZHJiXG UqASMmQYJeKPG2HHPjZzWh cmNmMlxjbHZlcnRhbHRcY2 nsrEDJyAR3uHXiS5d1O8mo cZv5RBKiK1AcbQwxAXz7XT UgF7TtVZAhNKDwExYjzyEw YnJkcnNcYnJkcncxMFxicm GqI4OzESInUhWuvbaeXdEg cnNcYnJkcncxMFxicmRyY2 YyXGNsYnJkcnJcYnJkcnNc WzYovshpVAzqdbDgW9WmJO NsYnJkcmJcYnJkcnNcYnJk ozuwQMpgxxTsN7HyAEFkkd CqmQChyKqsgSW2e8fsSPRd D1ouaTgRcBD9nUhdDTcpUA gfsHC7FRsvR2lhRxHhwSPk Z7vpziDpiEvnmkWoo8rshy QabrLbVDYiFMLiReBxB1fn ptCpwOwiibTbn9ntatGxlv TdTUGsAPKsUzXfU3tmtyNy llropjMwg8soytEazcKmDA QuNINmVhLfJ3idkqEgQldg nlPoe1ucipHyjtRpMDZqBX MfOcBtV7t3OFT3EVs0GYEn YlPmM2dnwFiuHGLav5qxEO RwJPX8ICRnnMu7DDjlSUqa uJRsdNU0KJtpqEGoNRL3BY MnOIYmCASsPII3FEBgQvPw cmNmMlxjbGJyZHJsXGJyZH DuJEFuPEY4LOMcGkSqyaSy MlxjbGJyZHJyXGJyZHJzXG PxLOW9ERKmXlEeiwLtSqhs bGJyZHJiXGJyZHJzXGJyZH S6QFLfBfQehvJkAhwawZNi okHoaLWyX2qghQPFjDZ4qW EkH1n3H2jeyTb2KNGhX1Hn xPg0VYB6WTGtI7FcBOVsXX NsYnJkcnRcYnJkcnNcYnJk qhjjAUtfmfQpL2RfHCFoSr JkcmxcYnJkcnNcYnJkcncx IDmhpxVwP7TyGNLwKaXpio JcYnJkcnNcYnJkcncxMFxi zgWiP6IpBGUxGeRdcgEyZf JkcnNcYnJkcncxMFxicmRy O7EuCABkyhQhkCJeuAblyU U6d3qsXHCgS7imnMeQfWN3 lWEfKSTtL7EvaBt0Iyi5SY DhG6UbQADnRFRgHzDgzpNp YnJkcnNcYnJkcncxMFxicm OzY1PdMHGwZhZxlvgjStQn cnNcYnJkcncxMFxicmRyY2 YyXGNsYnJkcnJcYnJkcnNc KoVvohhqPXvhfePrB1PzVK NsYnJkcmJcYnJkcnNcYnJk ssimHRnfhfKpI3ItWFDdor KhgSBkkXtrsOK6b4tyCKDj L2kgtCrQoLM3uUC1HOIcV9 BfsAb4QId7OEYbliZmuS52 UtkyZQV4oRZtnvfvnukdUR zdNMIzuwXwaJ90OoahYEmL MTpcflxjZWxsXHBhcmRcaW 38NxvwVZ2SSitsvcwhGVad XADkgmVooG70LdjlCQXGPh hzuwbkQFfsIISoxyFrmU09 YmwgTVNINjpcflxjZWxsXH ManjDfwY36ZaxqZEXUMC9d H0RblGvxZKNmOErdcCUvPR TtjV0tT2BmQG1oI8QzzVxc UBUcWLrxwBGmJJQ3zU3nt0 f8UY8lQ4WnqXmchpXmeSya s8ugrBLte6MgiKXucCPsl0 ekwPYvaWQ4OAxqlLXuQWM7 ZQUeYVVrLJHwPCB6FDWmRv JkcmNmMlxjbGJyZHJsXGJy ZGGcRRJlDIZ1AGTbLeXryg NmMlxjbGJyZHJyXGJyZHJz OOPkHYD3JQCkHwHpftIjXi xjbGJyZHJiXGJyZHJzXGJy KKB2OJMdMuHlynOvVsrlcT PprgEeaBRxZ4mytZLZaVE2 nOPyV6n5M4obvSaiXZUzUN AacCd6EWZ0JRnwqEHcuQD5 DUrfvDOgNCQ1DSIsQRIoJA EiSXD4DBVfCzLqinHlWhzn bGJyZHJsXGJyZHJzXGJyZH P8HUSsEeJjseQaYskdyWMm SYHxHUHwMPLrZSAbTRF5TI BcYnJkcmNmMlxjbGJyZHJi NWBqWXExBRAuJDY1WBMyMj JkcmNmMlxjbHZlcnRhbHRc L1uynWMXbKD5hWWuN0u9N0 ieiYn7QiHmS8DfsIncXYlz FTZiZ6GxGJKtGKOzJtZsfs RcYnJkcnNcYnJkcncxMFxi nyAhT8NpJTBkOpHzuadaQh JkcnNcYnJkcncxMFxicmRy D8VnKXDsSjWtngMtDuQnnu ZbDsEddsviMHeobcViX7Vy XGNsYnJkcmJcYnJkcnNcYn ZcxhelBVsngwQjR7XbRNCu fnIjmXUjyOijaMW4s6gdSJ RqG1sinSwIcBH0kFklHoaq SXzflME0CIzaT5hlIfSffU TeI0sphrAtjFccusLqi4mf cmRydzEwXGJyZHJjZjJcY2 qqdeCxxJwmofYib6dyreCj ypYsJUVeHVVmCoErA1linh NzvklnyeRad0swxcBkjsFv SBUqXRVkWhMpA5akwmEqCj daktFru4hhoeZhlqFaGNFe OEQnWmEeP3x7EJI2KOp1NE KcGuIwB5ovbUjqCLBdz7rs LHIeMHQjWALivKe7JggeDY mxzLDthRI9CGeacDVyMDH9 WJRrWJJjBXLbZXR4HUPpYr JkcmNmMlxjbGJyZHJsXGJy VLMvHJJtWTV6ZQXxCsBpgr NmMlxjbGJyZHJyXGJyZHJz TQVwBYV8HPJnPeZjuxJjFo xjbGJyZHJiXGJyZHJzXGJy JFP2PIInKvAstqFlHxqcaK RwhbPhdGGnM2pubTYSfTI6 dVTfL9f2G1xqpAw7MMMhY8 HrvWf8SpC7GGHdE3SaWMId XGNsYnJkcnRcYnJkcnNcYn HbwxssLFpzsuExR5WmCWMp YnJkcmxcYnJkcnNcYnJkcn pvWBtxivIzD0AeRSSfWfUu cnJcYnJkcnNcYnJkcncxMF lwtfHvV4JuEOCuUpShlaMs YnJkcnNcYnJkcncxMFxicm QaB5MvAYSvowNllCSwiBoa nBX3o3pzOUFhM6qrxBiSlE R3nRQ1TLmhELqooRU3Xpre L5gtOaIfwPIaM6tvshMytD cdixAll2hrmrZszrWwHZOw QPAhIsLgE9ykvkEvpMsfvo Xcw9xlajVogcJpUEAnMWJn HjLeD4vpwjChgkkdqzNyu7 xicmRydzEwXGJyZHJjZjJc J9pzoyAqIrwrgzLhd9uvep NkytJyCRPjFHHpDoAfO8p6 QFR1OBu5UFEcKtYyJ5zhrB zdHFLtt6ubCFCjZKI7Umrx UXgewJP5YUXaP1ggMeKcpL XqV3jqhrBvsRuaiiRto7ru cmRydzEwXGJyZHJjZjJcY2 yacrMtaIizpbKty4ejizCb gfCaHSUlOMRsMeYsQ6xfaz GvscvkvpUxz1wcazPemkPs ZPPdEXAjUkCdU0qwahQpSe hbvcUfp6njkoTrylOyOMIs XKLeYhQiC9j3ZQF0HRm3TS NiJuWwO8wcbLicUDCpk4hc TOPfWVd1CwsoXVyqrEc0Tu WjeVTzUIkfndWcxPIdDV6r P1NbsNeyVXJkPEtwiPRbHL hdjbvzAOqwGDVegkDhoZ16 LtnlW0g+XGNlbGxccGFyZF xvlzQxxAMrUO1gF4DezIrd YXJkXGludGJsICtcflxjZW owDKRjrmIxxC59XvxmPQTU DP9qKH1SAN5TFB5qN0FbpL yeUTJxTSmrrGDaCM3ZvL9p ZWUoZ7p+IFx+XGNlbGxccG FyZFxpbnRibFx+XGNlbGxc lK20Aqxwhx72AVWqlcMdoH ZsPD6XRpFmxQCql4YaxQSo sFu7FKGhsUQaqNImUC0EVY FDVkZwj0kunUOgFzRcrSsu lLyuc4RgiLmwuf3vUQHwuI pqqKPufQ9uuKTrhYAicFBb JMUkhvKPMZWwhtVvT3IcEt xwYXJcbHMxXGlsdmwwXHBs OTphXXTuSsHpN29bf2HtF3 ZumBFoBT9wRAXsFCYpQRWv HLVbKdyaqWFiH9xuzS7xFM 4JQN4ee18ioLLgCBHuoBKz plAzyK8niEsbes6qWFA7NG ReUHGzDNF4wW1xLGC2HGMw RpU0HMLbVTU5MKObLKQ0Tb bzGOGsIT8MDS8oj43haOId FVUqkAZuhqCtKDOmD4yjge Z9YWfyLNJko6DrGLwgZSCe oW2sCGH7IQapR5QmD5JfSY CcLDBJsR5bnOAjqV4ldd8r EK3kRScunW6bOKVpz5mhQ4 kkALZ0IGN2Ps8cVdlgKQBa MTAuXHBhclxsczBccGFyIF DjUFQKXzZYz89aPVBjEXPA orNpYDJmpUecnKJ2gxQ4oE 7wVKnujtUyp2IvENYxde25 WTUmm9DmX5csVVGdXWZ5yS nkPVYch8VhSHdes3H3GTUu HCZNGTCuoOUneqNoH7EnwM Jwbh51ZLC1fzTbuvBcxBLg HCX4vQPoBETzy6ZvF3uhkz ljYWwgdXNlLiBUaGUgcmVz pQo0dsOdeyYtry24HTgbxZ VuZGVkIHRvIGJlIHVzZWQg YXMgdGhlIHNvbGUgbWVhbn XbGk2lHPKklQ0sG1JsSWQy YOwzf6LvnbSazsTbGMBjWV 26FE5gtzSuWX0sbkHqSBKi bKMct00wTxhpEYL6 Clinical Information 1. Cold biopsy (test code = ascending colon mass [id number]) eval malignancy2. Cold biopsy sigmoid colon polyp rule out malignancy Gross Description (test o0ziiSYdVQSbmCLQJKEbRU code = [id number]) NtID2szLyajPd4wWnrPRPx kdO2wWXuPEczj9hwFUZ6l2 llbiANClxkZWZmMVxwYXBl abveDcS1YRalQJBdabgmBK r1CFfrYELjxAB8JOOqhOMv B2ItSEXaYN1fdva2IKI6YN boKFVeWbT7RFCuMxVvIxtj TNb6PGPdaqR0Xtb1VVDvBA MpeBArs0I5UVlxevfpQRKj oSIvD959KWbue6UouNRhDN pccGFyZCANCntcKlxlcGlj y8FhcSHeCGfnMFKxSMIbRQ tcygqrWHa0MJAkTYhmgORw LL9inBneFlmyiVrte2DqjJ BcXGlkIDUxMDAyIFxcZGIg EB4ZPfXzIZD0NLU1DoyvBQ x1WLn7PY5PRbZfGNMkTCS7 OQZcNMBnXWu0EKdlHG6ZDO P6Ihk7WOm8DqFxIALjSXPb NJm2LUDuXOmdJYOvjPClFE evXdTaQXWgNPcssZSsXO0j fVxwbGFpblxmczIwIFNQRU ZPRGIEXZBqsBQbMP1VUAHw TSqeQGBpeUYVATB1PN1bST ANClxsdHJwYXJcbGluMFxy zQ1xXR2NOHw6zcYzGARmDf AmE8ChW7bzTP4dJXZykmWz YCUlnATcSKXhwaOda0BpVI xpbiBsYWJlbGVkIHdpdGgg dGhlIHBhdGllbnQncyBuYW 2uRNGIETZdpM4vMUScCzmc cmdlIGludGVzdGluZSwgcm xcqUEwDZIjRD4yeJ7gJULi lM2lQILkn5yfJXDag3AjgJ Nmq4RtxxQpmzsjX59mo73r zCRyheKawePcTO0trSbzun DtJ1hwBXZrNFFwo78mbXD4 daBxAxXhywXyO3qgIGcubY Jzz2MmiOAhyU89SYOllgVd l9H3NESvl9N6VUGvqeGowE AltUWzNVXxDFX5QMGqMSQ6 IIXdQFRlgSsomzGjZ6nbFv Kjnu9mBYWrLI6eYfXpF73w vS6bP0GwBTZmk8UrUXugRO 5uuN0fBN9uCQGwEDViwSNj bA3xqeOqbhFrcBp1WYEaZQ H9aPPwtAlcPSZbUpwghIL3 UNAgJbOtvaMil5XflJf9yJ SpQPkjQUPkkW9seW9eFXEj JLbvPMMiZ12oy2MTv2GzNU Qpr7oryYwwi8MugFNhCSsr FDJkxHZlBOshuR3fLpSgh2 cmkAa6UHmzlnM0NVOpbv2i qKikqU4tINb0MVpiZQMaM5 EhX6IrMYtcFMD9HBFmEeSi XGRiICBPVlIgIiAzNzUxND r4MtH0PLa1MGGQNwIpFuCt BpOsDlp4ZDIsKPe2OLl1VN cNQyJpUjT3NLPiZNL8BSO9 PGT3XYpyuHNfJQpcWwUKyv lhbCBcXGZzIDEwIFxcZmwg MCfxH01dgKtifP2yKoCiQV ZWWPDPNR0YVkDWPHBvfhJY ClxwbGFpblxlcGljTmVzdE RvYzEgDQpcbHRycGFyXGxp bjBccmluMCANClxsdHJjaF xmczIyIFNwZWNpbWVuIEIg uKFmnfShFRs0XCPqgT3oVo 1ctYYpnX0bgTAeNRthQHK8 dSBpPBNnWMXwNCBqDW41F8 MgbmFtZSwgVUggbnVtYmVy SZPrYITeODXpvnEtu4Rspk KaXMHcU54ziFXnK98oy44x BMYefDYuNlvtaJA8HSEvS3 9xhJDeU85mr21miT5gzSHl cnVsZSBvdXQgbWFsaWduYW 2dfSJaWC9fGYIijgMgr1Ht VO7jAQDtZOQgZ9OdG3I7FV OeYuV7NG1uxGxfmmNfb8D1 JWKza5E4TDMotwEbaBQybP WiPFMgLRG0CJYpOuQ1BYOl RHLtsTrfdiZgQ9jhJdCwwf 3fNZZbKP5dFuLyY31cvW4n V3PzSLQnh8UqPZyvPH9qrA 9vCF9xRQMdCKOesTKihQ8p nsZbwsKdwPk3QDWvQEM1mP XtvOrnDPKjNuumeAX0MGQw XvZzcuDwj1NygMm3xOWsUI wtIQAtmA0aqB6xUlIhBIto fyHsPTfjzsKlHKexNG7zJV 6ksasnYYWPBF7WLPMemVRT KMM9DB7bCJb4NGdhCVXuA5 VsT0JnmuRfbJTeSSMkghAz d0rsQKW8SUCfzFBksXTbQv VnSxjmETO5QCJiZSaeBL4I ALBzJLL5XIpldP22iLVdCS 5PDNUqQMagHLOlTAYfmbK5 EEHyeMLgVWK2AU1zjIasoX JjenzopxT8RB6UiH== Disclaimer (test code = g3dsaWYlNAMng2fqJUJvkT [id number]) FuZzEwMzNcZnRuYmpcdWMx UUorzcQeWCfjo5BbD4VpPl AwMFxhbnNpXGRlZmxhbmcx YJYoZYX7zkDyRAMwPGzbFK WqJFfcPf3vqEJhwOpfQvSv BKLtt4tvrsFLLZwqXkUpE0 46LDWqIJadu6vne0CtRURc kLSji2Q1HOVDdthraIz5qP hoN00fo5J0FayrE0ueNOOv XRWdC4ByBW4xMQLuIzq1UO H8EDA7NRCwWXVlY7GpUT3e MLUtbUKhDQx0l6hxuQqvXM ZgKAA2i1beEPqsslVkYY4s sg7ynId2o6dnhzVlDIKmQD DssKXFZCVjZ9GbgGutGn3p dKw4pDpeQyryEYG8Aal8GK 5riq61kel9lKwhVYLodbge UkV8RTazBBEsjkiqVUu9FK opRNXlcRV9DMPfsHZlV0Sd MRHnOC3llow7JSW4UMesTJ ZnHmA6QYDcyZTpYDInzNdx DCziv210EUO8MdYxQT5uA5 Xqk1N2fF2piQAcCBFpzVUe FkCaLTUlni1szXZgSOuxo4 KdRYJ5ljO1uQUroAXcHTKn AB31Ztnbm2ZzPilwr6DkW5 5sgKZ4VIjkm5fwXI4pLaR7 vaCtQBgct1obwL8kShA3TM ciNI2xDY2kMDDjiM4jhici XHBnYnJkcmhlYWRccGdicm BpQy0znXbpGMX9EVgmW8xv rS3bMgX3JRmbA3ylpS8fXA f8LFpwyDZ7JLQqmJ7uEO1v pnhmc1vxLFeiEHinETRhaa V2caT3ZODypWIrZ2JlgC9y TPDrWB7rktoae8ifSUC1RZ kbDXTlRIJ1AwBeNDOgs8Ql irv3QsNcb2JigPDhPSvyD6 2nb371HIDgepJcU9yjyTYv qflhdMAbgcrjODzpooS4DI MnczZxh6MoYOYlGPC1TPgr NKjnwGZyWBLpjHqqh4ugD8 RscGFyXHBsYWluXGYxXGZz MjBcbGFuZzEwMzNcaGljaF ugGSnwDyVdBQUqKWpdF5gy ElKdH9BtGTCbXlAsxSYaK1 ggVGhpcyByZXBvcnQgbWF5 AYcgC5e9VLMqkpKqmAg4di RhMoLtLWHlOMY9YQbgxKSb PXAhp9OrmgvldKFgAs4xrM ZiTACuoZ5nMJJvPPSoXBtm XS5kdEc4KSZCbPTisWObGl NEJTMgDW46whWkWSCKzuuk c3K6LFieBGJae2OgbPOuV0 rqn8UtDUEqy38xAT5fi5X3 r2plVYN7JG6gq3BlCSNeoF LysYPaLGWgv4Tyjgqgl7Ro VWMhkpFry6AsTMZsqbVliZ MjEMFdauByfm7mppHoKROk BMFfL0CzholcwRcjcrXcJC Jkmw7vcoHzMSU4MTJXEDQh PQXoo4IdpH3mdAQDAQF3iI Lgln1hqdFYkEQfIMCkvf42 HEXbCG0vI3fcPFShQOFxrr SwmSOvi9AtMPFdtYJ6jDRx SY7EImXPc95mGUGrQJYTxj YbDAZliHarfPH9ugC3oS7b IChGREEpLlx+IFRoZSBGRE GzRE6lscCyu2ErfaOuuCas MGHtcJGhd4JrnRMus1FzqC hux7XvtLJnzGVkPJ7gYTDt clxwYXIgVVRNQiBMYWJvcm N0x8QrARRuNVPeMTV6qVuz ijq1MJMfiE8lECUgG8shih xlSStlGFRbn6YroT1azYSZ iZUqr8SwkKRpeMWRkSVtXS 1ddcHpRLeUMByLZJW8guUm YWLyx3UvKDpcM7tdQ26glO wtmAn6dCA1XYX8aS1zFue+ IFxwYXJccGFyIEFwcHJvcH CcLVIvrGxxbdGsP3TlrlQi uI9mcBZlcuUrIO3yKT2bU9 M4zTCvZQTwjkFwg8hdDVkn dmUgYmVlbiByZXZpZXdlZC Qkf1HrKYawONI4RPaijbLp bmNsdWRpbmcgSCZFLCBTcG DnpPZvFQM5IDwhcdSqtxVw JU4hjG2poIwvqS7vrFAdpA H7qhjcYEArMXIgvLwzPWCt VU0wgQVdATPqpgEHxZoqvC EuvS5wF4HyRGJfCBNdav9e SMWhnD5aKYosc0FonkiaBW ErDNCnVEMezzGbya5mBZIn kBIBQD6QFMcaqREbd3Mpop ArU3rYGXM3WRNuMoRpMvsr NYRpuLVvjQNoUKNcnv60NK AsgU3xsUbkVROneT9wpU4g qOskkP0qPhRtRxRcDLqqUM 0rOUSeF7bzeIGrEJLxYWWr Q3yyLsBrlX5irJimAPpnDc VcWzMvAVkuGJI6oE== Embedded Images (test code = [id number]) [facility] [id number] 23:44:35 Test Item Value Reference Range Interpretation Comments Case Report (test code Surgical Pathology ? ? = [id number]) ?Case: [id number] ? Authorizing Provider: ?Job Alston MD ? Collected: ? 12/05/2021 1623 ?Ordering Location: ? ? GI Endoscopy OR Department Received: ?12/05/2021 1905 ?Pathologist: ? Johana Wang MD ? Specimens: ? A) - LARGE INTESTINE, RIGHT-ASCENDING COLON, Cold biopsy ascending colon mass eval ? malignancy ? B) - LARGE INTESTINE, SIGMOID COLON, Cold biopsy sigmoid colon polyp rule out ? malignancy ? Final Diagnosis (test g8tonIFjCREmz7tkLEQbyR code = [id number]) FuZzEwMzNcZnRuYmpcdWMx IHtccnRmMVxlcGljMTAxMD GlAH6ojAlrgIr3kIifKSWj wjV9oUXtANoxh8wiUME8z8 qybfuaYPRkWJumRw0saWJr yMqsLxEgCWJaKGm7aT93KV TetX5cdLPsKXk2ESCnzDQi ghKqUbBmRLPeqYHxpPJ9GJ GhCW8rlomoDLhhWRyiWRVk rbY5RCYrdMMdP3UtVMGvYT 1vlxxnXVY1CIuvHNIfLVT6 WeExQKZjd6Guarw1NaNgdG FyZFxwbGFpblxmczIwIEEu ARGVE3JCYTyKZhSXS5sXLo iuO43OQFNNPS4ST6ioN6Ef NGYLMcrgeXMiXVMuYW0pZF 9ERVJBVEVMWSBESUZGRVJF NrTMZYBWDDTOVCUGE1JAGv NKBx3CXDeeJEBoWQLmGCNU WBKWE0PmF0VQSURJGG9CEc RccGFyXHBhciBCLiBTSUdN H4wSNXKEHS1WUTIKG9xDWF UOX8UFUNWROxLYG0aGFFqj nXXcHZPxWM8gVY6AKSYYLA VMWSBESUZGRVJFTlRJQVRF FRQLGAGHR9SJPtJQMk4TCF mmXIHnUFLiSEQAQRLOW1Dc E5AMLDJVSV4ROdZreJJtZF ShfpMLDQJgvHlahaDwEJ4i YLotl8HsECSEODWvADJmZU 6lMNCmBQS1YrMoENMBREPx gh36YEE5RzRpl4E8YDYeXt TvMDZoCV0ejFapQYDvQJ7a XJYjD0hbeG1swvi3BxRzDH ZpXjJ6RMIcspC6Ikm7BQGh CPfil0lia5QmI6NcyNFzeV z2l3hvJBAyXlW2tXXpNGmi D8stlfAbhJUsQGHiIWh6eK dbHaBtCYTir4vgtvJxGdAr INIxIXJlKRGnoGgvrdn3aV 42SBMpuV2cuMHxTDiqnlXu DvK4NVwyJZXrTqZ1OSApsR IoKTPhH0spCHHoJWdcXCAn SQvzySTmILM3xRhfa6Z5uN VzaGVldHtcZjBcZnMyOCBO c7OdKFb7vWoqN4TsCDTqTo Q3xBHrESBtKPdzPINiLONa slO4hB16EWaaliM9xJRxf8 Mee29zf084sS7ukEBkVSK6 KADgELWbxKGwKSWaJOQ9GM TcaYXtU4lzOMZtAN6joamt EWotZQtrCJFaiPQ7EAXsqG DvT5SbDXOxAOhoKAGwjsk9 BxUsCm9tnRZxaXywZHxrq1 htp2hwvKShGcr9XTEaHkZe LkvaSYdcj7Qld5ipFRNrsc 1tMQJ8wLMbnYevv6V0tNHe MXKrsEQvyfQcQLWtUaE3WF jsZY8dsv62VNDgQTY0oy2n bGNccGdicmRyaGVhZFxwZ2 FeMGFiy670PQFgJ8TjUQAn f2Q9thXfQeUmZCUdxDR6uv O4HYPdGYu7dXWqtqB3ptDn kEWzC0rogF6nWFBiEH0aqm jim4hpWZkcYTqyHBBwuDR5 mmT3OFDpfSJxA1HlwI3lUL VqOPnqRUWoqae2WkUqAa3z dGVyeTcyMFxzYmtwYWdlXH BnbmNvbnRccGduZGVjXHBs YWluXHBsYWluXGYwXGZzMj FtpRmhuMgmdB3nRyJxQyEj GLgwVI3pGQQpG3iunFJeZP NtYZCoY2wzYjMsvE2drDya MVxjZjJcZnMyMFxwYXIgSS BoYXZlIHBlcnNvbmFsbHkg rqF5nKT5WPEnLApjOFSpZV DphXLxmp2hsNzpUEKkCC0e IGFncmVlIHdpdGggYWxsIH A3VYInrVMieGOdxRPcUMYx eSByZXNpZGVudHMsIGZlbG txl1Wgh1PfkBI6qT3wt2wg o2HbIYLopMJ6BG83vwX1vA 1fWATtCC4vSEOeKU9tnPPr gVNkMWKin27hbJlugqTxKQ BvcnQuXHBsYWluXGYyXGZz MjhcbGFuZzEwMzNcaGljaF kpAdnbPhXaMMAjFJgeD7ad IbNhWxJnZWryRSE1yD== Final Diagnosis Comment t7nuiVUuTCCvtXWdDNPfC8 (test code = yzkaSjRNKpxCFoO8Cahoex [id number]) XVgsNE0qSO2raNyaaMFwoR VzIVKcUvUfa3cye730dHKh d2ntQKAUsnfjvQh7oTbkY7 1hk4I6LqzwH3vrWEAnYPFt Y2MjPW0uPZShRiv8XMX2PS tccmVkMFxncmVlbjBcYmx1 SHX6yMylNexedZG3gQLnxU H6YOnss8JukZflmHoyNXcp bGI6vFNpjXzizMKdRJ1yv5 habJM9uyUpBYG4yHihpEM0 uYcpedpic9haqBW1mVE8FG datFM3VPtmWnWvHAwegeEg oiXqmmBryLR0QIqvZtBldD O6KXajaAInpMX2IXferEL6 ANg4PCa3GAhdRlumBYNyE5 46LSzwawHplnCfXqJch8zq IFV4hCecuwLeKHxrGI64KF djp1RnHFYaxSpuYAYajA1z VxEebFL5ZSqcMwBbKWxeRM JzrZlbDJqgQRUsjNK0YUN1 JTIab3zbJEPlpFSuxDNwQu ZcDZaiGV74kUrwsXW4BOxp iQ9gCGGcLGxzPDp7QHHeJs X0k3uqeWJ0jGE4FCsmfRO1 ZWxuZmMwXGxldmVsbmZjbj RqlKC7QAcnSkYhhTI6JJuh tKVdxSI0ARrikZE7MNg3KH n1RQraFotoMQKaB339AMix wnFkslLkOfEnu5cyJWO0wX xmczIwfXtcbGlzdGxldmVs XGxldmVsbmZjMFxsZXZlbG 1dA14fSYkeltHmpfDxOAjs exBlm4TmxiOypQJ6GLzfyh HuaTM0kYpuMBMqKmYxRbf7 f7twPSIfeO58pSDdbcDkFc XjR43oEqLzVU78CBoay4Ck JISxdArjZKVkwT5nXhVrvC R1CGhdAgMyRJyoJAUjoQto UAceRKHefTB6MTE5KZSzv8 xsZXZlbHRleHRcJzAyXCcw KM09vKufzWC4EKkinJ9xNL YaPZzkRWw8KRHyIjU2o5fw lAX7uGP0YGcykGD1ORqhBi MwXGxldmVsbmZjbjBcbGV2 PYkyXdVcyMZ8NIcadOJbeM K9KBwslNT4EBf5GGy5WXbm GqrlFUXcZ507BVzdskOtbg KzBqJhj7ucMFJ9vUqamaLp fXtcbGlzdGxldmVsXGxldm NixoQlXRcbWQStfV4dD84t XGxldmVsamMwXGxldmVsc3 NxewLvnXF0UYgrdkCywXH6 wSqmQLYnPoN4Cyn7v6hjJE SreK76zPWzupLoTvFkH75r VeJiZJ93KCvow4WaSZTcrD yxLXVwjJ9oGgJxoSG0AUqh ZmNuMFxsZXZlbGpjMFxsZX OgjHS6OZR9WAGib0zoKBOq zQCcrVMjQjZyWCxvZw44hJ uehKI7TJmnzK7tCKZbMKox BBl3VUDuYzG8d4ipfFT8dH E0UViijMS0MNneTsHiCItn msHfcrCfqgNcdBC3XZjkLk RopEK8DMbxbPOtvVS4NGgp dER1OEv3KVt5IKygAalnUT ueE904BHxeatKrksVcRoHc u7pzZQJ2vAigmeEqqW67k1 ydRUpac7RnooAcnnhsVOAb Zkrjk4jlSLdzs6ZuzaQmtg unAYwvhLY6rPVaPHqyy1Xo dnVvtiwiAUVvcY39ISmufd Q6aOabWFMlfvdyBjO5LZqq KGWzphtfYMn6XJsgELZasN E1HNXfwYFfT2OsIVXiVG2a jcf1INT1ZBrgGRJrBiL0JG YylSObOPOhfJmePZofs843 ZSG7UhEpZCXpomUliTvqlA 3uHeScAJbjdVHquFA4LNKJ b7IdYfAfHe8LWUK8hX9ejg CbRARmIJL0VxkeL6WcqG5i TP3VMQXGSnPGOsGxPDCxFN OlmARtkAWkz5LeXJPXTPWy GEEVv6meN2IzHYWoHZ2ntK pexVNoEEJlcvgnYJZnKQ3q HSB7wZWoPLP0jXO8DNUqjo CEMeSOL6SXHSZnOoXSFzXx YXMgYmVlbiBvcmRlcmVkIG XmJZH2lYylAANlILTbpE6p uBDuNIssJMKXIDNfa0QiWA JzwJDhxE6tKPXujmhmuDSy uBR8UUohCZPpNZhov9GyNZ GvNA6xLRJ1zRYqRH1eMA7b H9Vbs6S6RLefjKUjQOvop4 ZaAxcijKY8COdLQ4xgQNA9 ARcgqGCvm2ixn5EwB0vyoA napQT9GFvXALSzGfotAWAx fZHgKCVzISE7iERkpDYev2 XkuMwhxoArWmOrNIQlo2Rm lnCttb5iONn+KHEsv4XgNP ArJXJhRTWWRHcay2SuGNB6 w1OmVOFghkUzhzIbdRN3tZ 9uLlxwYXJccGFyXGIgQVND SQ3YOD2LZQSPQY5RNBJTHZ 3XBJcTCJo2PAWragjfJPwj YXIgTUxIIDFcflx+XH5cfl x+FE5krjy+EF8nbri+XH5c flx+AB3xxfi+ZG5cfyCfw3 f0fVWkWD66A9aaKTCky7Ws iF8vdxtmUJWqtqVKAMAmJJ 5cflx+MQ9zcxk+NP0igtc+ YU4ggfu+RO9rddt+XH5cfl x+GY2lvxn+HE4clKRkpnEl bnVjbGVhciBzdGFpbmluZy RwvNUoQI7QBSRbtzt+XH5c flx+FI3dvkq+CI4jise+XH 5cflx+YE7bubn+IG8mspk+ OB0lgFXxkmMgepZflSZjdc HmhBNiggvyAuZumGMyFS9Z SDZcflx+JW1vzbj+XH5cfl x+UL6wbgq+RD4gqyl+XH5c flx+WZ2smgf+VZ9ouBFnml UgbnVjbGVhciBzdGFpbmlu A7goDIMgkDBhJXrpyBXkhH NfnQL6qY0bJV9bCI8ZLHVr iKNmz4Y9dBKhJxqpOMrAQY Zfl5QodBwzOUDiHSanza3u AUTbtQynjFIxf1OdFrvvVT xwYXJcYjBccGFyXHBhciBD bGluaWNhbCBTaWduaWZpY2 KoP4Lsq4ZoJ8EwgE7hngwe XSG0gCFwsmC2UCYxwdf9kh 86UAq2xdIrYUNxuOKcqQOh VCZuBwlxIYJaxYUoAFk9OK b6cgWgYAVywyXekXOnNVEo xijgICTbsHUdDYItS1ubbL KziXY8IRdkiKArFCG2RBDu VZCsNTEuBHI6IRNmXbHlms NmMlxjbGJyZHJsXGJyZHJz GDCoRWB2RGZsUoBitvLjFl xjbGJyZHJyXGJyZHJzXGJy GJI3PPXdQtOsurCzXjpztA JyZHJiXGJyZHJzXGJyZHJ3 MTBcYnJkcmNmMlxjbHZlcn KbcUOqBKQyD3WuBKkLeRU5 jU5pEOyqhLP6v1vuXDGuX2 qjiKvQsKI5iZJbZuOnC7Jp mLmnTAHpOJVfS5RkXIWfEU NsYnJkcnRcYnJkcnNcYnJk gjkoTWwbswHmD0NkBYYtMl JkcmxcYnJkcnNcYnJkcncx BYpchsAdR0CwVGBqXoHxru JcYnJkcnNcYnJkcncxMFxi pfWxT5JnOUUgAkYzeuYnAt JkcnNcYnJkcncxMFxicmRy X4SnUPYffuNxpHAxiKocoK xcW5glgNofFXPhKEP9LAAl XoTnI7clbZkdENAvu5egEV JdGQJvVXUdkUh7HAv7VZld bDDjbSW2VUzzvCQeUTF9LU RqFBAnIYOqKLF8SQDjSlJt cmNmMlxjbGJyZHJsXGJyZH GvQMAlLKV1RAGpUaFxrtBi MlxjbGJyZHJyXGJyZHJzXG NfMYY5JOMrEoFfuaRbQwol bGJyZHJiXGJyZHJzXGJyZH E2RSVdPnGwlvHkLqarbXVv cyZhjWUxONJpD9MtDKaEcT Q1yL6eZNoshUL8u2obMRZv J2dlmRcFnXL3hJynGyanRV euwTG0PNglV0vjScQysCVk K5zegbVwoKrdmuMuz8lzsf EycvLqMLZlGCHcDzPiF6nv nnJmiWuhldPhj7rldnLoyr ExDYPyQSRoVoUfI6rxdbPz olnkkoDlh6jesjOyxdNzWG JkGQWuDbQqL6mrfdMiBrul qgZve2srjdAwrqOsHDYhVG QtKxNoJ3j9PQD0TJd7JMTi wQLbaGU7C8vqhIqzMbcnR6 ebhLGJfKP9vSLzH5w3F5rh vPp4YgMwZ9LvxNjvBET6XG AtV0FqVTNuGUWiBsDshoVk YnJkcnNcYnJkcncxMFxicm ExU2KiYWSrOiRjoyhiHoLs cnNcYnJkcncxMFxicmRyY2 YyXGNsYnJkcnJcYnJkcnNc FwYhvebgCNoshjHfH7RaJJ NsYnJkcmJcYnJkcnNcYnJk ctdcYHmmphDnB7KcZPAhwx YiaCBstRrjfSkmD4bnuMpj OQYzZVZyCOQtFvUbC6mdgA ubDEDcf9kkVLHtWHW9QYGc lSd2XGabFUakbNGblME0HT dpmSXqIIS9VEVlLSInJFVt PUR0DWTvMjRyosGgEhcgeZ JyZHJsXGJyZHJzXGJyZHJ3 MTBcYnJkcmNmMlxjbGJyZH ZnDEKzDOAmELDqPLW3VEBo YnJkcmNmMlxjbGJyZHJiXG JpAHVqFIReRYV1BVWxStNs cmNmMlxjbHZlcnRhbHRcZX MxR8LjUYeMyYH6qD6pMMbg fKP9z2euPMUeY9wmbHyEoT O4rNM9BNanCRjhuMH5Peuf L6ksLjAhzMEsH7wklbWsgB rbqfGos8jexdBeurXuHPGq QFHbUvXkO3lbzbOeqZcyex Dgq4kbayIxksDrLNQeEFGy IcXpF0byceQbmwhtsaXql8 xicmRydzEwXGJyZHJjZjJc V1aodoYyJhnhjiBdw9bngu OsfuRzMPYmBATrWiVzF2h3 YZB4TEz4ABNvgIMryML0I2 jqvDtyRbrmF8ltmORThMN0 qIWjY0j5Z7vopKklUdM1MU HnzKo4KkD9QUgbjRKggFG8 DLegsKDoEKS2JYOaDSDaDM CvKAZ1PEDcQhAujxWkZlbt bGJyZHJsXGJyZHJzXGJyZH M5DGUjZoIhasIuLbxggIOh LFKoYTKpPYZrFZDwRHB4WK BcYnJkcmNmMlxjbGJyZHJi NNZlGWYbHJAsKAP3CPWqNb JkcmNmMlxjbHZlcnRhbHRc SQDvY8DnJCyNkBQ4yV67M8 likPX4n4qhYMPhW5yixGbB hEX2pWG3MOYeY9HbsEd6NW j0QVYwxrTsrV39IyvsSLO2 dGVybjpcflxjZWxsXHBhcm XydG99HxgsTQiVROgnsvpb RVhsIHDksuTngU86CcvvBJ 1TMjpcflxjZWxsXHBhcmRc sU27VrriCCWZKtuvkxnaIE yzVSWyyoPmlG50GrpkEAYY NjpcflxjZWxsXHBhcmRcaW 82ZzqrSSZMGY3fB0YrxZzv FNZtVTqdqUToMTAjpB1bY5 KaJZ5dU8DeaDrcVQNfTDpy bVBeBZH7rS7bs2e8XR1lW9 EbnOhbcaCciKysd2yapWEm g0WavTIlxBKzq4t6qxOeLW RmdDNcdHJwYWRkZmwzXHRy bACaJGt4EQx5cnJqSNUmbs NcdHJwYWRkcjkwXHRycGFk HVGyM7vycJHtvCB7YYknzV YjWWC2MVJaAPUnFSAuLJF8 MTBcYnJkcmNmMlxjbGJyZH SaQPDsOPLoZYMqKYV6XGUa YnJkcmNmMlxjbGJyZHJyXG SwVLShXVLqTIQ9YAVcTaSe cmNmMlxjbGJyZHJiXGJyZH QsZOIyTEQ1YBPeDyTisuDo MlxjbHZlcnRhbHRcZXBpY2 FaWOePvOE5nN3iWMbwtIL4 m2xmDQStG8djrXzOgLS3iP IlUjJaG0ElwFjnUWRnHPEd E1InBIWnHKHbQeImyiEeOf JkcnNcYnJkcncxMFxicmRy M1RjKIKyIeTrjxgcDdNidy SaToLlsgvlQYwzrkKzG4Pz XGNsYnJkcnJcYnJkcnNcYn UybxqkUAsirkWqD3RnPKDu YnJkcmJcYnJkcnNcYnJkcn vlXSapjdOuT1FxKZZwetIm qFVjdWldnElaL0uhcChaJT FvPUR8ZRLkYwIeQ3rzfMxt CYWkl5ykDAJtMHFmZPCerV x5HTi4VHqldSCpxOP5EJrn eKKhKFC3JKTuUUAwABWrRP W2SIJgUwZhgwAmMudzzWEm OWAtEGUpEGIvKOFkEOK0SR BcYnJkcmNmMlxjbGJyZHJy ZHSpGIUeZYZnHFW8CZLqOb JkcmNmMlxjbGJyZHJiXGJy WICsGMXrIDE4ILKeTwQfpr NmMlxjbHZlcnRhbHRcZXBp T6RvPQgVxLW4dE0wBFshvE T4q2enKZVqH5ejvKjFgSS4 aQqjSxosULpmrAB7EEbfW3 yqExRmdROgH2xqnxVjdYgs eaPhd4qavjShoeMvTDBjSG XbJcBfF0lejsNziNkplqJu i9ufceQduwQkONFtKSSwSy QpW9longBxgwsxkqPfm1xu cmRydzEwXGJyZHJjZjJcY2 yamvPcFoturaLmq9lruwTx reQdQMOiZZQcXnTbB7w5SL R4FYy2ZPIeoQYqaEH0D7sf aYgaIspgK9fuwERVuFD5cF HoD3o1K0mnaBq9BxJzL1Ry hIlyJQT4URLwT4PcDGIlXJ NsYnJkcnRcYnJkcnNcYnJk nnauPFtnmwFmL7OcUPDdYs JkcmxcYnJkcnNcYnJkcncx ITjsljFaY5WfJGBhRyUysm JcYnJkcnNcYnJkcncxMFxi urNgC4WnRASoEpUxepMfBa JkcnNcYnJkcncxMFxicmRy H3KmWZCudsOzxIYttYgkxE hhC4vjtMiiHLNcVZQtFRIe YxKrT1kvhJbiVCJjn7xaJH JeGFH0TUFctVq5GDfeABtx dIMghPH9MJmkpGFpVMR5YR ZnBHUfFOPcUUX5IKGeHoPi cmNmMlxjbGJyZHJsXGJyZH JlXKPmXKX6YGLtTyLpesJk MlxjbGJyZHJyXGJyZHJzXG BtGVW1LFIcEyCgjdQdNwyg bGJyZHJiXGJyZHJzXGJyZH Y3RUXvZiRiyrNdErcgxWAy teXvyZUyHTIuS2DwRNvAkX J7oB4fVNlatXQ4c9hhCWPn P6cszHmBwMR8cBE1DBorJI perGC9FcymQ1xaCeSobDXm P0ysiiKsiYvikxRtj3lwfw AuefYyNEZwMZZcYlPiC1pp ukCfxGlrbxIod3apalAbhl WmXIYbCDEqMuZyD9gaknLf mxroxmTsn0gsjpFwzgMaZI LzEVWkXePzB3iwibZgAwko lvKam8mffdYrqiJaVXInIU DfFyFzW6w0YYE9VMk3NUQk yDTnqSP5I8jpqOifTokvF0 grdSAXaHG0iWYvR0k3P3xt vMyvNiM9FDNetNm2GhZ2AX ivdNNgoWG7PXiyiPWsOCE5 DEFcCHTiIFBvKFI3HGVlPw JkcmNmMlxjbGJyZHJsXGJy GACzHSUbOOP6NMXyZhDmwr NmMlxjbGJyZHJyXGJyZHJz EPApPEL9MMEdQmEbtbZqMz xjbGJyZHJiXGJyZHJzXGJy YXK7BTZkLwMrwjSyKqheoR WuolGupLDcIGJvK1OdHUcK yNP1vZ38J4kijYV3t3tgME RvH7gncSuJlHL3uTD9JYCm O3YouNy6QZo6WWFsweIzcS 50YmwgMVx+XGNlbGxccGFy RUokeiLxaBBwMW5hS4LrkS xwYXJkXGludGJsICtcflxj PLsbQMHaqlJiwU28TopdB5 x+XGNlbGxccGFyZFxpbnRi sKRrJQ4xP3SnrMbrUKBiRM mvvZPkXT5VJmPptwUDP3bh TFx+XGNlbGxccGFyZFxpbn RibFx+V2RrnpTpdJOriqJl iujyGFjgTOTysdJgpB90Jj xcflxjZWxsXGludGJsXHJv n2ytTPBcYHFcoiSDI2OibS wvii0wNSTilDmfhRLau2Ts PidxSYUEM1yyVCdhnV38KL Ozk7DqIvncxDT7ID0kWZ2p L7Aov5I9PEdyvCAkVXrmj7 RhYmxlXHBhclxwYXJccGFy SCVaK6pNKH1LFXERY5yNQo RJLD9YJrCoDyCnGkrkJTJu WxDjxIXmUB8IHYMxVV7gpm x+SG7mndu+UR9fazi+XH5c flx+XP8lych+PA6fdbz+XH 4Af5CceOb9KXGcwCIrIFFa FNV6IDreaC0lGPvhIPUyLO 1TMlx+TO4qmwf+ZZ8fgml+ EA2dkhc+DH2xsuy+XH5cfl x+BZ7qhim+NK3osnKln2g7 xICqQW53L4reTTZfr6NycH 7cflbtMTNbjyTWN6dwPA0a flx+JM9tjxd+KG6kvql+XH 5cflx+FJ5cbuh+AB6abvc+ AQ6ipzCmi5k0qFWjBA03F2 eqQIKxr9EnfD9gfupsCADh yzOJK6t0SC5tibd+XH5cfl x+GT5zrvn+XY2zhpu+XH5c flx+KY1egok+ZK8xpqJxv0 h2kQViTR97D1miLTTnm6Ru vF2metnnrQGfVXMyhkSArd RlcnByZXRhdGlvbiBvZiBN D3ddyCfdgb77xTUkWXS3KK ePLoFlCJY5oCE0LTgrVN3q L7Csb5J7JMmgvGInHMV3TZ JsZSxccGFyXGIwXHBhclxw DSFlX5ohtwbySLpeK2vipe cwuQWrlgSjQW2pWIJ4XJif hK5wQOHfqDFquf2xBarbZO AlpTZzs7AeN8nyVsPyoTLp X3mbjaKzaCadcvEdk7fore EtvyExTCHtKYIqNyHxP7iz hvLbiIqyxmIxv4rhdaNdbl DtGFBuBLEeJgFgL5ojnhSr payrmvPow2zcthLbedSyUH OdSTWzBdPvG8nnqxIsSiij ysCle4fhbeTfmeAyYSQiBP AeJhEsD6v4AZJ7MNe9VXBr BvEnN8tpgFjxVKJov4frSC EkGFY9WGfyNIyocBFuEfZp X7ugUwJmhRQrH7gpqiUwtW pyvmGac2hcvhUrluFqWAVk AYFsVaTkD6viqbBcjXkhho Ccb4zvbbItjfAfJWWaAKOq DaFuD8uxxdEwfwtxecSjd5 xicmRydzEwXGJyZHJjZjJc W6pmleIvIlfiqmOne6taci IrprOeJYMsTMWnQsMcK5o3 PNS4HIj1WYRmZbXuC5tvyC asPHJlq4rvCDOlZGEcUEZs iGu3MLo8CXljbAHvdIK6US kslGJaFBF3XBFmXMRvZVYv NRK8WVFvLeByllMxVcnozG JyZHJsXGJyZHJzXGJyZHJ3 MTBcYnJkcmNmMlxjbGJyZH QfNRRaQOSoYBRoEAM2UEKo YnJkcmNmMlxjbGJyZHJiXG MdHCRgYLHpNXR6WDNyWlLz cmNmMlxjbHZlcnRhbHRcY2 egxSSUhHP6wDQaE0n6O4za bWk0JRZmR7XsaNjePZd7SF NdA1EnBIApHZKwFaYhguLi YnJkcnNcYnJkcncxMFxicm SlE3CtFEPpFpKiyejeFfSn cnNcYnJkcncxMFxicmRyY2 YyXGNsYnJkcnJcYnJkcnNc OoYwdmnsHEsemyRdD9DfJG NsYnJkcmJcYnJkcnNcYnJk lkmnKLmyjeViW7PgQRWmqc BubKXgsTzgjSG2p8jmRCRi Q8ypmGgGlDM5nDczZCvuLY rthIF1FIrhK0avMiIaaEUq P9tqtgLxwLbejbYpf6gbvk VnapKzHPKoVSRnClVjF6ir jmKxpEhlynHrw3zasqNbuy RbKKWvMBDyKlJfM9bmsvJr nkhrioQsl4hfelRglfWgNZ KfEHDcYvFcP8ywxuFcUpdk hjUbb1nqyxHrxkPgYVRfLG UdBjLnS2r8NLS2SJo7JWLw QiWiZ3griFevWUTie9yzZL WjFWD7MXCnwEk4XNmyJLub aSGdyJR2JEshmDKkHHP6PA PiOFLyMLMcIMV6XUBlHeYo cmNmMlxjbGJyZHJsXGJyZH HhBXKiFTV3GVCrTqFcpeVp MlxjbGJyZHJyXGJyZHJzXG HrPAC2XHOmVqDjrtGaBjjm bGJyZHJiXGJyZHJzXGJyZH K2DBNtIcOolkWdImyzhUZr yzYerTLeQ1ouhVGXwBS6lF CbR6l4X1pywKc0JABjR5Tl kAj4CAN2MHTqJ0AwTASgKO NsYnJkcnRcYnJkcnNcYnJk qnrrFKuqhwUyA7AmCQSpAk JkcmxcYnJkcnNcYnJkcncx PZaheyQmZ6YeXRRbIxFiev JcYnJkcnNcYnJkcncxMFxi lhAlP5EnLEMhSzTxfdRzVc JkcnNcYnJkcncxMFxicmRy C6WqCKZzhtQxsHXssGnqzU Y9t0ixFKWyL0kptIzOjWW0 oNOoIWCrQ8HflNg0Amr1KS BkM0QoSSVrBAVxWoAkksRz YnJkcnNcYnJkcncxMFxicm YoX7IrZXWfKmBulriyZtWp cnNcYnJkcncxMFxicmRyY2 YyXGNsYnJkcnJcYnJkcnNc DvPqxgxfPKycweWwT0YeXB NsYnJkcmJcYnJkcnNcYnJk ywvwZJxnpyXkU1GgJHNbpn RagDQtrBucqZT7h1lxHVLx R3ptvWlGfEL1rBV2DMTyG2 EvhOw1GQg7LLMrdtQylW25 AztuRDV1mNOsouuwichoWA wnVZMcpdZrxR33GzpuDOxX MTpcflxjZWxsXHBhcmRcaW 21CdpzXF5OZtoynfxgTMnt LFSmceTvaY51YydtSMAPFd ajfdglWGvlWRKnimCrjF62 YmwgTVNINjpcflxjZWxsXH NiarJxeS44AweyMFRNWS6n U7MwvVibLMWiYGmgoVTuBK QgkG9xD9UcZH0kM8QuuNrt VASsVJstsZErVMP9oZ5bp5 k2RL7aY2CxvYccfhMxhYiw x5ttjKRbz9QygABpuNUcl5 qkkRBtaWW1VFdtdPRvPOQ8 NWMzEZDlPKVsDBM6BJReVl JkcmNmMlxjbGJyZHJsXGJy TRUyJAXwCMA8QYCdGhSyxt NmMlxjbGJyZHJyXGJyZHJz ZGOtBJJ5OWIaXlWssyEgWh xjbGJyZHJiXGJyZHJzXGJy IYO9HSFiSkPzexPmDgzapM FfkpQrvZTmN6bfmTYIoTZ6 fUNoE1i6Z5dsmSrcDSXmPR TazYc7DUZ2NVhubYOkuTH3 XDgefVFbVLL1EIUyAYVoZH ZlRYJ8NZJiHbMfckMxFlzc bGJyZHJsXGJyZHJzXGJyZH O4CVSoWrFwlkHnCnzxiFNc UCGbRVEgNSXzSZYoRYM0CS BcYnJkcmNmMlxjbGJyZHJi XXRiIDDuNMDmKTU4GXQzLq JkcmNmMlxjbHZlcnRhbHRc Y4yvrKMSwLC9gDWrM2w1V0 isxMj8AyYbW2ApuGidWWmm HVNmZ6QcDLJyXKOaGxZhhn RcYnJkcnNcYnJkcncxMFxi hsZtQ5QtANLtFkIvqecnCp JkcnNcYnJkcncxMFxicmRy L4FsWNKsSzIgifYqOsKjow XkEhVaiaieSNukaqThE7Sb XGNsYnJkcmJcYnJkcnNcYn FikvvcUGbekgEsG4MpAIUy pyVmyDHpqKpuwDH4t2pyWU HpQ6ybeSnXfMN2wRscJnzi GOaxzUD0HLbaJ1qdUbQetC JlD0rmycXzpPccojRkq1ll cmRydzEwXGJyZHJjZjJcY2 uhcvXliQajmzBho6lmipMh krBkPBDoGSSwEyHhQ7dxfw MbdrztbmJdn2ugpxDcnlPp FSOkFECzCaHjN7hjrcLxZh ckylYoh4bdwgQbzuGxCHSv CMPbFmNuC0f3IFU6YEo9JZ GuVdPjJ8ajyCsjSWYun5nz TAAyIAAwLPQpaLc9WndgMR aiyNOlqOB6TWkliDHgNME3 UESePFTxSRYeHFR8NLJaMo JkcmNmMlxjbGJyZHJsXGJy SFXwVCHsNTO3EYKmMmAsgn NmMlxjbGJyZHJyXGJyZHJz BZXbWWD3BCOtAdXxyuJnKz xjbGJyZHJiXGJyZHJzXGJy NKK3OCTnGhOzveQePsspfO NifcTjqSEqU2dxmMTMpED6 iBCgH5i7I6zzoSp1VAGhA5 SpsQy2IsH0DSYjA7QyOREg XGNsYnJkcnRcYnJkcnNcYn JbnirfKQgkgsGaV7FhJSJl YnJkcmxcYnJkcnNcYnJkcn aoYTneajIrG5HxCSXcEzFf cnJcYnJkcnNcYnJkcncxMF xriyBtA9HqFERtDpZiddWm YnJkcnNcYnJkcncxMFxicm TcQ3OhTIZtqlOkzTFuhMej yGK7u3rtMNHbL3huhCsUrC A8uCI4CDbjRTjmmEQ8Ynsg L2iaVyGxxGApN0hwcxQoiP bmmdLhg6aermZmjfLnYCQn GXKkDvWbV7ypbpTvzShpiz Rzg8oczsUwtmJzLMSeTRQa RlWeY5krihJesmalahAor7 xicmRydzEwXGJyZHJjZjJc J5cwkzJhVigxoxYwd6chgm HifzUtOCJpCHViSsTmM9r5 WZA0YYi0YQTlGmZmO9zgfG kgQTHtm4jcNQBnJLA1Iafc ZWvomDE7BOFhE9zcGlCvmB NlB2jyyrTsiGimzwIlk9ei cmRydzEwXGJyZHJjZjJcY2 nrrhFatQuycdIuj1ammbYt abHrLSZkOEKtEuDfO2npld ZixqngwcBvj8jfwnLkicQu YCGuASSwBiFhC5mzeeKpRq qtgmQyh9jcmiSfyhTvNCBr ZYGaYvDwV6v3UUQ6MZa3VQ VcLwAzW2lnpSwnQDQjm1zw NGScKHp3NmapEKthsKq0Yz WzmUQhXRepfdAcrWUbQG1g E4PpzKgwFHXhIOgqhPBfBS kxvhanTTomNFDyviNglN54 SgxzK5m+XGNlbGxccGFyZF rahiIcwGLdBO2cN9GryQsd YXJkXGludGJsICtcflxjZW esZDOfweCfnV75ClntCLWK HR2zQZ6MMD8BLF0kW6DybQ brETRrSOufsGXzEM7VlT4o TICoB4o+IFx+XGNlbGxccG FyZFxpbnRibFx+XGNlbGxc gZ29Rytmwc88EQDluyOhmT FbDP4PSnLgpGAde6IrhDDb dUi4EWTakTGiyDVgSA2LPW IYCvZro8yseRGbVuMbqOoj dKzhd3OzeXdgny3tWROjrD pegEDgzZ9ycFPtsHHzhWMu TRZdrfPMEXHtzuDpC7SvJf xwYXJcbHMxXGlsdmwwXHBs CGwbYTGlUuDmW27ru2XsH2 OgnFWzDV4lMORvHQLzHGCp BUOlRddbhFMkF4xeaV9hDP 0AMZ2ow28gmMKvZHInfWEj rcOhzM6kiYwdmu2hHFJ4FJ NiZOIiCXQ8nJ0jYOY3TYRm DkB4RKEoYVU0LYLgWSZ2Lb qyCZRlZI7IHG7zd98qjFOs XZFhvCJbabMpKTEhV9uobf Z4DTjfZHUmk8CzUGybLUXa xQ6nOKQ9QCjwN8VqK8IrIU YbUHODoK8ckIMsrE1bmu6m YX2qBQgenM6bLFKdd7csC4 jmAOG8FWK7Ta3dAqccAMMn MTAuXHBhclxsczBccGFyIF UjMKGOUvGBz59sWTZjKFIK btQeHYIblFqbaXK2omM8jM 5vMSruduCjs8FdYYUwjp67 BEFii1OfU2tsCGHlUYK0gX pzAAUbq3DiDGyqs1J4PUOe QXCPDEFmxLCqoqLnO4DcmF Ssnu39JIE7lyWkhhSdtSKy ZEK0cFMbXTTda1RuX4yurh ljYWwgdXNlLiBUaGUgcmVz sGi6xoPrxzUuih48ZUyyvP VuZGVkIHRvIGJlIHVzZWQg YXMgdGhlIHNvbGUgbWVhbn WtOe7xUHZjsG0mU1CxWENn POnjy1NymfTmvwMyPQKyMG 79VY8wlaUjMA6lcwEcZTAb bFZqm26qKqwtLXT5 Clinical Information 1. Cold biopsy (test code = ascending colon mass [id number]) eval malignancy2. Cold biopsy sigmoid colon polyp rule out malignancy Gross Description (test z5hbkORbZIWxwRKISKOdOL code = [id number]) CoWZ5mvPsymEz9nHpcGMFt cmA6pIRqRCubr5ebVRA8d3 llbiANClxkZWZmMVxwYXBl vedcBqI2JRmkFNRlkzwePF g5IIbcBOXitRE2MZObzLSu B5NkOHErBK0nlrd0WHT0YP dpIEBdYbH9FUWcZrNyJocl MMj0QTHsouJ5Ysi0ZJNaOE TwcUPvb7F5EWnvxjasGAJv kKCqE102BDkhp6VgxDIsGV pccGFyZCANCntcKlxlcGlj m8JonQOcOPgzSSMiDVGoUS hbxthfIMi3LCLdKDxjiZGf RC7jfNviYwwvsAoex5LiyO BcXGlkIDUxMDAyIFxcZGIg FT9RLsXvMFR1IFB9DwrrZF j2RTc5LX0HCcEwMNEwCSD7 IAGuRGLsFFs4JVprBH9FEX A9Mjn3KSd4JyKfHJOpXWOj YKm9NYImOWlxCCAxxPGiIB yhWoZwBCTwITxmaRLhOZ1a fVxwbGFpblxmczIwIFNQRU ABRWHJRQFssSAiVJ6HJDAi ZXlsOQGegREKEJN2NL0tUU ANClxsdHJwYXJcbGluMFxy nZ1jPN4HDEu0osIiGISjVr JrL9RyS7zeHA6jYJKejqFm RDNqfACiBSOhgrYvk3PvMK xpbiBsYWJlbGVkIHdpdGgg dGhlIHBhdGllbnQncyBuYW 0oYSWRGJXwuV9sRKPtWurg cmdlIGludGVzdGluZSwgcm gxpZInPJVyHN5mwY3wOSEk lY4dNJYwe7rcUZKvt5ZccL Uin9CywePstictT14bs54c tDAzzvZpnbGfCT7bkCgcrd RwZ6hoJWSpXFIeh56ykKN9 xmSuPwZptaWuX9nyUXgdvM Diq2WfmBFmfI24TKKmhbVc g5W7UXWtt0W6WEOjcrIxtY XcmQJgTCXyCKE3AAUeKWZ3 SAYbJUHbwWpxgfWcL3fcDt Mloj3iGSMsHH6mAzImF16b xI0oV7HhYRPej7IdTHxmUQ 7mvW5eOB1oNBHxUHXbxOZq cT2szhFjuoYhfDq8YZKgQJ L5rAJcoBktXMJsAppbqNI8 BOSdVeFfviLhp0YdaQn0eW QtHAdvFYQeqV3prJ6vCWNa INvcZJDlC67ep4QCk7GeIE Ejn9tkkWbnq0YbbULtWNnw GITexIBlXUrcuC7wYdEal3 ggmRl9CJfnzvC4RJDtdg5o iBpaeQ3sQNa7BLjwKOKeZ5 BmQ1PoPHdiGRU3OGMhVoQs XGRiICBPVlIgIiAzNzUxND e3CzE7TYq2VTVBYhJhErGm ScVaGhb2CHOkMDa9NKc9LT dIXqObMmZ3DKLmRKS3VPB6 LQD3EXingMHaBEkoUuHMzx lhbCBcXGZzIDEwIFxcZmwg QLmxF36otMljaR3xPyEaFX NWZSKQFL2TFoRNPMZgkrQB ClxwbGFpblxlcGljTmVzdE RvYzEgDQpcbHRycGFyXGxp bjBccmluMCANClxsdHJjaF xmczIyIFNwZWNpbWVuIEIg wTVzasJqOCj0WYDdzV8vAx 2ubFJfnX9ugWVpSAqkWUH3 wTRrRXJwPQYaMTEqST34H8 MgbmFtZSwgVUggbnVtYmVy JBUkAHGeRAOnvmVfe5Opot XjTTWnA73iuXOzS03ie16n WDEiqMGlTsbscXA8FGOvW4 8cqSLzT01kf99yxQ0ejZRq cnVsZSBvdXQgbWFsaWduYW 1tbBTqMO5kGMJrthFju5Dq JL4aTNNcIIQfG1CvZ9U9AG EvZzG4QP7onYiahoTzq0U0 AGNpe8K4AYIlyhZlzDHpnB CmKEUeCLA1USRtAeJ7KKFb MGHlhLksboGsY4mjEoJdzk 1sPQAxMV5aBmUdH30qzM0l M2PiSIVjc4NeVMriCF5fiF 3gNB9qSTSxXYUpaQBjuZ5s rsEgooQrgRc3SNTmVJB5dJ GorFryFRTbEiovwKH7JFSp ChLjsgOke4ElcQq3qXKoMV zuLCJiiX1atW5bWcIjQMnv qfUnNCgaqmXePMhsRK6tZX 6nywdaUIVQCY6NTKCciZFS WTE9SG9iMKp2NXgcMIKbP6 RrJ3NvqpGmuNGoVGBrhaRu d8mnNNW9YXBqoIZscHRtYi EnLxteQIT2BWCmXCkkIT7H VOKaPNI9EWxffQ11eCCtZF 0USZRnBWphKFLtUVGvsrG8 CYBweKHtIVM6QL9pwCauiC NdmdhycwU1KL7YmG== Disclaimer (test code = w2bxcWUfQCTkc3qnPKBllC [id number]) FuZzEwMzNcZnRuYmpcdWMx HYmnnhNwIEewi0VoW8LeRi AwMFxhbnNpXGRlZmxhbmcx ACAtEJB8fdVdFROfWQbpDU ZyXCyvAm8zrIUszTohAmPu LEJna1mihxGYHBldWbSwV4 68HCLiXEzwt3xnb8AvYMYj hLRas4I8FARTlpyzfWd5aU rpF68iz9H0KzeoK1kxGHSa VVIcO7WqIJ2rQPPsOcb8GF N1AWY7VLTjYVSsJ3FhCG6o DDPwhWCfRJu2v1pwoOwwVC EiXVC0i8tsXZuizjPtKC0r mp7adEr7y0wudhDkFZPkKJ SvgFHPYUEnC1JypFfuZo5g qYb3zJktTcypPUA7Qqk5HJ 2ses20jcf3uIobIATwtlgo HlZ3XZdlMLCsgkilAZf3YB enVDJbeTJ9HLSsvUXyK0Wb VAZuDC0ldhi8PFL2BWioXU HdVuX0TDPdlMPuBAPcaPkw FMyxw495BTX6KsDjGP9hS7 Ulf2D6bQ7uaDXySYToyIFe ZrPgMOFfxq8qrSKcGJqqi3 YeOKV8lwU2zGWzzCXhSYYi HU09Aflxp1SoTqxkn2KdV6 5tzSU2DZuwm6pjKW1mFfC6 kxWnRUepw6qgnR2bXuH4YY khYM8yIH2rAMNkpM4ipzqg XHBnYnJkcmhlYWRccGdicm ZeYd7bgUxdYBL3CEwdF6up wB3gEaL7SAkjI2taoN0eKT c0ELqcpHN7WTIeuD9nJX9d mfonn9ovNKlhHQfhKDAkoa L7nzC2XGRnjRPnI8NwrK0s TKOuQC9fyyxob0dsGAF7RG ifOJNoQVN3BvGfLPGhd6Uh mfg1QzQzt1QvoWVlMLtdA2 2sd642TDBihqScA4zfiHRv tlupfCSwhzggUMlapeL1AI GaaeMrk4WbOIYyGKT6GQdw HBtjhPKgFLXhkKcdq1lnM5 RscGFyXHBsYWluXGYxXGZz MjBcbGFuZzEwMzNcaGljaF ziBQtxEiCgBQOjDHeeX4ab DrSrA8AvKZKtQoAcfDHrP4 ggVGhpcyByZXBvcnQgbWF5 EIevK2r6GCRxdyYzjKj1au UxUnQwXSTjZPN0KDgqoAEf ARSby4VcahvvoFQwEa6lfL UqSQOmeZ3xWLKpPPUxDLaz XT7tuHp2IIBXeTNqpODoGl FWTCFoOK58fzQaRAIXpdya h5L0MRylHBYxs1WmpTSuO4 rgw0WfVATfw17oGW6mq8I5 f7xhLOD1VR5kp0HqLUFrmD HawIZyPCPqk4Puujckz3Sb VHSjdgGzn3WxHBJblhMyjX EkFRFmzwMsal5ydpEqKNWn UTSnJ7HsfmsldOjabhPiLN Iqmv2yikVgMPQ4PVTUEWTo LWOqf8MdkD9qtDIQAGN2pX Ihmi3blyXFrSMsTOZeiz48 KTMdAD8iQ2alMANmRVCqkg VohGNpc5RbVLWtrPZ3oKSi MX3JJxOJp87kBGIkFOLDxn RtUSXraSqzvYM0zxC7uW7k IChGREEpLlx+IFRoZSBGRE MhJZ0mfxAwn8TvwpRbwGyt LGFdmOBpe8YccVNlp5FvcM ekf9HxaUFwvEKzJN6bBGXr clxwYXIgVVRNQiBMYWJvcm C9n6UoYXGiTOFjNXT7sItu npn3BVObiX6oSZHsG7jnzp dbWBagLELsw8RmeE4rzMUP zYEge6LchFVseXEDrVRzOI 1kkePvYThHJEbBUGI5hyIs EZVvu5DwZUipC5orJ28yxH pviPf9jDD7UYG8lE1dLtb+ IFxwYXJccGFyIEFwcHJvcH KvVKBltQbpvrYwY2OnmdLt xV8zeWTodaMvHF0nAT8eC5 Q9hZFvQBWylqQpt7gcVSeg dmUgYmVlbiByZXZpZXdlZC Jbo5JhKHwkVAP2RWgprpNm bmNsdWRpbmcgSCZFLCBTcG CjlWBtEMC6DYqbvuOckqVw MH5vcG3bsLygoJ9tjOWypP H5ympzLXJaOSUxhWgiQGKh QE5pbZZnKZMhmfNTyFocgQ ZrfI2jW2PaAYEwEAJwyz7w IHDsaJ1nCGqhr2ZiepeqEZ SiCAOrRFPmbjJzht8lVLNr dMAVNN0LXJkibIXvr5Owal QtM9cZZLH0YNEqFlCbDkep RMZzaJRerUKgZJCipl15GV RytH0rzSbqYSWoyY7xnO2w gJigyO3uElYmArQrQUmrDW 5wUKXdO3yhmTZnAYYvAKCs F0uzIdTyoD7bwBqjLTkyXu OvHrSaKHmwTSJ1zO== Embedded Images (test code = 3527037198) [facility] GLUCOSE (AUTOMATED)2021-12-07 22:21:29 Test Item Value Reference Range Interpretation Comments POCT GLU (test code = 5063138712) 222 mg/dL 70-110 H Lab Interpretation (test code = Abnormal 58282-6) [facility] GLUCOSE (AUTOMATED)2021-12-07 22:21:29 Test Item Value Reference Range Interpretation Comments POCT GLU (test code = 1613613050) 222 mg/dL 70-110 H Lab Interpretation (test code = Abnormal 36909-0) [facility] GLUCOSE (AUTOMATED)2021-12-07 16:45:40 Test Item Value Reference Range Interpretation Comments POCT GLU (test code = 5214833420) 106 mg/dL 70-110 Lab Interpretation (test code = Normal 94349-7) [facility] 16:45:40 Test Item Value Reference Range Interpretation Comments POCT GLU (test code = 1725246051) 106 mg/dL 70-110 Lab Interpretation (test code = Normal 00765-2) [facility] and Screen - ONCE [id number] 16:06:41 Test Item Value Reference Range Interpretation Comments ABO & RH (test code B POSITIVE Performe d at [facility] = 20) Laboratory Serv [facility] [place] [address] s [address]Pgzz Free: [phone] A No. [id number] IAT (test code = Negative Performed a t [facility] 1185) Laboratory [facility] [address] s [address]Gnlt Free: [phone] A No. [id number] [facility] and Screen - ONCE [id number] 16:06:41 Test Item Value Reference Range Interpretation Comments ABO & RH (test code B POSITIVE Performe d at [facility] = 20) Laboratory [facility] [address] [place] [address] s [address]Krui Free: [phone] A No. [id number] IAT (test code = Negative Performed a t [facility] 1185) Laboratory [facility] [address] [place] [address] s [address]Aahz Free: [phone] A No. [id number] [facility] [id number] 15:37:39 Test Item Value Reference Range Interpretation Comments CEA (test code = 10.4 ng/mL 0-10 H 3146433444) JULEE (test code = JULEE) CEA Ranges: Non-Smokers ?0-5.0 ng/mLSmokers ? ? ?0-10.0 ng/mL Lab Interpretation (test Abnormal code = 60495-3) [facility] [id number] 15:37:39 Test Item Value Reference Range Interpretation Comments CEA (test code = 10.4 ng/mL 0-10 H 6078817915) JULEE (test code = JULEE) CEA Ranges: Non-Smokers ?0-5.0 ng/mLSmokers ? ? ?0-10.0 ng/mL Lab Interpretation (test Abnormal code = 08096-2) [facility] GLUCOSE (AUTOMATED)2021-12-07 13:11:53 Test Item Value Reference Range Interpretation Comments POCT GLU (test code = 0490898040) 214 mg/dL 70-110 H Lab Interpretation (test code = Abnormal 58574-4) [facility] GLUCOSE (AUTOMATED)2021-12-07 13:11:53 Test Item Value Reference Range Interpretation Comments POCT GLU (test code = 8460086819) 214 mg/dL 70-110 H Lab Interpretation (test code = Abnormal 41066-6) [facility] METABOLIC PANEL (NA, K, CL, CO2, GLUCOSE, BUN, CREATININE, CA)2021-12-07 11:44:19 Test Item Value Reference Range Interpretation Comments NA (test code = 136 mmol/L 135-145 6394649157) K (test code = 4.2 mmol/L 3.5-5 Slight 3326948648) hemolysis CL (test code = 116 mmol/L 98-108 H 2050950978) CO2 TOTAL (test code 17 mmol/L 23-31 L = 7172574612) AGAP (test code = 2-16 0013859554) BUN (test code = 16 mg/dL 7-23 Slight 5521570727) hemolysis GLUCOSE (test code = 138 mg/dL 70-110 H 5722550321) CREATININE (test code 1.92 mg/dL 0.6-1.25 H = 1616764537) CALCIUM (test code = 6.3 mg/dL 8.6-10.6 L 9524093475) eGFR (test code = mL/min/1.73m2 1250294876) JULEE (test code = JULEE) Association of Glomerular Filtration Rate (GFR) and Staging of Kidney Disease* + -----+ --------+ +| GFR (mL/min/1.73 m2) ?| With Kidney Damage ?| ?Without Kidney Damage+ +------- +---- --+| ?>90 ?| ?Stage one ?| ? Normal ?+ ------+ ---------+--------- +| ?60-89 ?| ?Stage two ?| ? Decreased GFR ? + -----+ --------+ +| ?30-59 ?| ?Stage three ?| ? Stage three ? + -----+ --------+ +| ?15-29 ?| ?Stage four ? | ? Stage four ?+ ------+ ---------+--------- +| ?<15 (or dialysis) ? ?| ?Stage five ? | ? Stage five ?+ ------+ ---------+--------- + *Each stage assumes the associated GFR level has been in effect for at least three months. ?Stages 1 to 5, with or without kidney disease, indicate chronic kidney disease. Notes: Determination of stages one and two (with eGFR >59mL/min/1.73 m2) requires estimation of kidney damage for at least three months as defined by structural or functional abnormalities of the kidney, manifested by either:Pathological abnormalities or Markers of kidney damage (including abnormalities in the composition of the blood or urine or abnormalities in imaging tests). Lab Interpretation Abnormal (test code = 64478-5) [facility] 11[facility]44:19 Test Item Value Reference Range Interpretation Comments MAGNESIUM (test code = 6274374732) 1.6 mg/dL 1.7-2.4 L Lab Interpretation (test code = Abnormal 81608-2) [facility] (NA, K, CL, CO2, GLUCOSE, BUN, CREATININE, CA)2021-12-07 11:44:19 Test Item Value Reference Range Interpretation Comments NA (test code = 136 mmol/L 135-145 0563515115) K (test code = 4.2 mmol/L 3.5-5 Slight 4211938414) hemolysis CL (test code = 116 mmol/L 98-108 H 0652693391) CO2 TOTAL (test code 17 mmol/L 23-31 L = 9132082881) AGAP (test code = 2-16 0843186820) BUN (test code = 16 mg/dL 7-23 Slight 3329971863) hemolysis GLUCOSE (test code = 138 mg/dL 70-110 H 7776947165) CREATININE (test code 1.92 mg/dL 0.6-1.25 H = 0250058267) CALCIUM (test code = 6.3 mg/dL 8.6-10.6 L 6822373356) eGFR (test code = mL/min/1.73m2 9271610210) JULEE (test code = JULEE) Association of Glomerular Filtration Rate (GFR) and Staging of Kidney Disease* + -----+ --------+ +| GFR (mL/min/1.73 m2) ?| With Kidney Damage ?| ?Without Kidney Damage+ +------- +---- --+| ?>90 ?| ?Stage one ?| ? Normal ?+ ------+ ---------+--------- +| ?60-89 ?| ?Stage two ?| ? Decreased GFR ? + -----+ --------+ +| ?30-59 ?| ?Stage three ?| ? Stage three ? + -----+ --------+ +| ?15-29 ?| ?Stage four ? | ? Stage four ?+ ------+ ---------+--------- +| ?<15 (or dialysis) ? ?| ?Stage five ? | ? Stage five ?+ ------+ ---------+--------- + *Each stage assumes the associated GFR level has been in effect for at least three months. ?Stages 1 to 5, with or without kidney disease, indicate chronic kidney disease. Notes: Determination of stages one and two (with eGFR >59mL/min/1.73 m2) requires estimation of kidney damage for at least three months as defined by structural or functional abnormalities of the kidney, manifested by either:Pathological abnormalities or Markers of kidney damage (including abnormalities in the composition of the blood or urine or abnormalities in imaging tests). Lab Interpretation Abnormal (test code = 10818-2) [facility] 11:44:19 Test Item Value Reference Range Interpretation Comments MAGNESIUM (test code = 6284721003) 1.6 mg/dL 1.7-2.4 L Lab Interpretation (test code = Abnormal 98154-6) [facility] WITHOUT [id number] 11:05:57 Test Item Value Reference Range Interpretation Comments WBC (test code = 6690-2) See_Comment [A utomated message] The system [employer] generated this result transmit escobar reference range : 4.20 - 10.70 10*3/?L. The reference range was not used to interpret this result as normal/abnormal . RBC (test code = 789-8) See_Comment L [Au tomated message] The system [facility] generated this result transmit escobar reference range : 4.26 - 5.52 10* 6/?L. The reference r blade was not used to interpret this result as normal/abnormal . HGB (test code = 718-7) 6.9 g/dL 12.2-16.4 L HCT (test code = 4544-3) 21.6 % 38.4-49.3 L MCH (test code = 785-6) 26.4 pg 26.1-32.7 MCV (test code = 787-2) 82.8 fL 81.7-95.6 MCHC (test code = 786-4) 31.9 g/dL 31.2-35 PLT (test code = 777-3) See_Comment H [Au tomated message] The system [facility] generated this result transmit escobar reference range : 150 - 328 10*3/?L. The reference range was not used to interpret this result as normal/abnormal . MPV (test code = 9.7 fL 9.8-13 L 77225-5) RDW-CV (test code = 16.7 % 12.1-15.4 H 788-0) RDW-SD (test code = 50.3 fL 38.5-51.6 76004-1) NRBC x10^3 (test code = See_Comment [Au tomated message] 0904765316) The system [facility] generated this result transmit escobar reference range : 10*3/?L. The reference range was not used to interpret this result as normal/abnormal . NRBC/100 WBC (test code See_Comment [Au tomated message] = 4254782992) The system [facility] generated this result transmit escobar reference range : 0.0 - 10.0 /100 WBC s. The reference r blade was not used to interpret this result as normal/abnormal . IPF % (test code = 5987544417) Lab Interpretation (test Abnormal code = 31074-2) [facility] WITHOUT [id number] 11:05:57 Test Item Value Reference Range Interpretation Comments WBC (test code = 6690-2) See_Comment [A utomated message] The system [employer] generated this result transmit escobar reference range : 4.20 - 10.70 10*3/?L. The reference range was not used to interpret this result as normal/abnormal . RBC (test code = 789-8) See_Comment L [Au tomated message] The system [employer] generated this result transmit escobar reference range : 4.26 - 5.52 10* 6/?L. The reference r blade was not used to interpret this result as normal/abnormal . HGB (test code = 718-7) 6.9 g/dL 12.2-16.4 L HCT (test code = 4544-3) 21.6 % 38.4-49.3 L MCH (test code = 785-6) 26.4 pg 26.1-32.7 MCV (test code = 787-2) 82.8 fL 81.7-95.6 MCHC (test code = 786-4) 31.9 g/dL 31.2-35 PLT (test code = 777-3) See_Comment H [Au tomated message] The system [employer] generated this result transmit escobar reference range : 150 - 328 10*3/?L. The reference range was not used to interpret this result as normal/abnormal . MPV (test code = 9.7 fL 9.8-13 L 81988-6) RDW-CV (test code = 16.7 % 12.1-15.4 H 788-0) RDW-SD (test code = 50.3 fL 38.5-51.6 35711-3) NRBC x10^3 (test code = See_Comment [Au tomated message] 7273980393) The system [employer] generated this result transmit escobar reference range : 10*3/?L. The reference range was not used to interpret this result as normal/abnormal . NRBC/100 WBC (test code See_Comment [Au tomated message] = 5660872351) The system [facility] generated this result transmit escobar reference range : 0.0 - 10.0 /100 WBC s. The reference r blade was not used to interpret this result as normal/abnormal . IPF % (test code = 6774942882) Lab Interpretation (test Abnormal code = 14124-0) [facility] GLUCOSE (AUTOMATED)2021-12-07 02:01:30 Test Item Value Reference Range Interpretation Comments POCT GLU (test code = 2570192790) 142 mg/dL 70-110 H Lab Interpretation (test code = Abnormal 06087-3) [facility] GLUCOSE (AUTOMATED)2021-12-07 02:01:30 Test Item Value Reference Range Interpretation Comments POCT GLU (test code = 4755981756) 142 mg/dL 70-110 H Lab Interpretation (test code = Abnormal 15362-1) [facility] GLUCOSE (AUTOMATED)2021-12-06 20:37:04 Test Item Value Reference Range Interpretation Comments POCT GLU (test code = 1368164807) 238 mg/dL 70-110 H Lab Interpretation (test code = Abnormal 57319-9) [facility] GLUCOSE (AUTOMATED)2021-12-06 20:37:04 Test Item Value Reference Range Interpretation Comments POCT GLU (test code = 4639995073) 238 mg/dL 70-110 H Lab Interpretation (test code = Abnormal 82761-6) [facility] 20:13:55 Test Item Value Reference Range Interpretation Comments Height (test code = in 8374875043) Weight (test code = lbs 2103305564) Systolic BP (test code mmHg = 7193936660) Diastolic BP (test code mmHg = 9633860962) Heart Rate (test code = bpm 1797976767) LVOT stroke volume 93.10 cm3 (test code = 3461349913) EF(Teich) (test code = 55.90 % 6478420684) LVIDD (test code = 4.60 cm 3748005271) LVIDS (test code = 3.30 cm 1404955385) Left Ventricular End 43.0 mL Systolic Volume by Teichholz Method (test code = 3324490) Left Ventricular End 97.3 mL Diastolic Volume by Teichholz Method (test code = 0128740) IVS (test code = 1.05 cm 1806363720) LVPWD (test code = 1.09 cm 0582319836) LVOT diameter (test 2.36 cm code = 8558609802) LVOT area (test code = 4.40 cm2 9571395599) FS (test code = 29 % 5169956949) MV Peak E Marlin (test 98.5 cm/s code = 0842681258) MV Peak A Marlin (test 75.4 cm/s code = 0424668952) E/A ratio (test code = ratio 3719990075) E wave decelartion time 0.21 s (test code = 0529808598) LA Volume Index (BP) 21.9 mL/m2 (test code = 5145078994) LA volume (BP) (test 43.4 mL code = 5960289563) LVOT peak marlin (test 105.8 cm/s code = 4651907101) LVOT mn grad (test code mmHg = 4612773688) BSA (test code = 1.98 m2 6426404114) LA size (test code = 3.5 cm 5034453668) LAV(MOD-sp2) (test code 46.40 mL = 3906642256) LAV(MOD-sp4) (test code 39.60 mL = 1733133832) Ao peak marlin (test code 124.2 cm/s = 6101606114) AV LVOT peak gradient mmHg (test code = 0211598976) LVOT peak VTI (test 21.3 cm code = 2242691203) AV area peak marlin (test 3.7 cm2 code = 5545727379) LV V1 mean (test code = 74.80 cm/s 1266294766) Ao max PG (test code = 6.20 mm[Hg] 6253809981) MV Prop V (test code = 54.40 cm/s 8311444631) Ao root diam (test code 3.40 cm = 8820573426) AV peak gradient (test mmHg code = 5074192648) Aortic root (test code 3.4 cm = 4198681332) Ao root annulus (test 3.4 cm code = 0586895554) PW (test code = 1.09 cm 0.6-1.1 3444098453) EF - 2D (test code = 55.90 % 36522938) Interventricular Septum 1.05 cm Diastolic Thickness by 2D (test code = 7069958) Aortic valve mean 83.8 cm/s velocity (test code = 8970932548) Ao VTI (test code = 25.4 cm 3331740001) AV area by cont VTI 3.7 cm2 (test code = 0630353042) AV valve area (test 3.70 cm2 code = 1920141841) AV mean gradient (test mmHg code = 5393140762) Radiology Study observation (narrative) (test code = 74564-3) JULEE (test code = JULEE) ?Left?Ventricle: Left ventricle size is normal. Normal wall thickness. There is concentric remodeling (LVMI 94 g/m2 with RWT 0.48) . Normal wall motion. Normal systolic function with a visually estimated EF of 55 - 60%. Normal diastolic function. ?Right?Ventricle: Normal systolic function. ?Tricuspid?Valve: Insufficient tricuspid regurgitation jet to estimate RVSP.Trace transvalvular regurgitation. ?Aortic?Valve: No hemodynamically significant . ?IVC/SVC: IVC diameter is less than or equal to 21 mm and decreases greater than 50% during inspiration; therefore the estimated right atrial pressure is normal (~0-5 mmHg). ?Pericardium: No pericardial effusion. Left VentricleLeft ventricle size is normal. Normal wall thickness. There is concentric remodeling (LVMI 94 g/m2 with RWT 0.48) . Normal wall motion. Normal systolic function with a visually estimated EF of 55 - 60%. Normal diastolic function.Right VentricleRight ventricle size is normal. Normal systolic function.Left AtriumLeft atrium size is normal. Left atrium volume index is 21.9 mL/m2.Right AtriumRight atrium size is normal.IVC/SVCIVC diameter is less than or equal to 21 mm and decreases greater than 50% during inspiration; therefore the estimated right atrial pressure is normal (~0-5 mmHg).Mitral ValveMitral valve structure is normal. Trace transvalvular regurgitation. No stenosis.Tricuspid ValveTricuspid valve structure is normal. Insufficient tricuspid regurgitation jet to estimate RVSP.Trace transvalvular regurgitation. No stenosis.Aortic ValveAortic valve structure is normal. No transvalvular regurgitation. No hemodynamically significant .Pulmonic ValveNot well visualized. Trace transvalvular regurgitation. No stenosis.Ascending AortaNormal sized annulus and sinus of Valsalva.PericardiumTh e pericardium is normal. No pericardial effusion.Study DetailsStudy quality was adequate. A complete echocardiogram was performed using 2D, color flow Doppler and spectral Doppler. Patient exhibited sinus rhythm. [facility] 20:13:55 Test Item Value Reference Range Interpretation Comments Height (test code = in 7608228625) Weight (test code = lbs 9611844509) Systolic BP (test code mmHg = 9963957708) Diastolic BP (test code mmHg = 0361282747) Heart Rate (test code = bpm 9995127971) LVOT stroke volume 93.10 cm3 (test code = 0864093679) EF(Teich) (test code = 55.90 % 7824467123) LVIDD (test code = 4.60 cm 2730768535) LVIDS (test code = 3.30 cm 4676478152) Left Ventricular End 43.0 mL Systolic Volume by Teichholz Method (test code = 8261854) Left Ventricular End 97.3 mL Diastolic Volume by Teichholz Method (test code = 0770692) IVS (test code = 1.05 cm 8980839826) LVPWD (test code = 1.09 cm 6077984081) LVOT diameter (test 2.36 cm code = 3151650782) LVOT area (test code = 4.40 cm2 5986395795) FS (test code = 29 % 4773351057) MV Peak E Marlin (test 98.5 cm/s code = 2400233775) MV Peak A Marlin (test 75.4 cm/s code = 3346646775) E/A ratio (test code = ratio 5802058119) E wave decelartion time 0.21 s (test code = 5650002022) LA Volume Index (BP) 21.9 mL/m2 (test code = 9756143700) LA volume (BP) (test 43.4 mL code = 3956042671) LVOT peak marlin (test 105.8 cm/s code = 6356451851) LVOT mn grad (test code mmHg = 4938011923) BSA (test code = 1.98 m2 3265811664) LA size (test code = 3.5 cm 5165566485) LAV(MOD-sp2) (test code 46.40 mL = 3661784822) LAV(MOD-sp4) (test code 39.60 mL = 7990118637) Ao peak marlin (test code 124.2 cm/s = 7817052535) AV LVOT peak gradient mmHg (test code = 0151526156) LVOT peak VTI (test 21.3 cm code = 1779522636) AV area peak marlin (test 3.7 cm2 code = 2573425866) LV V1 mean (test code = 74.80 cm/s 6932161150) Ao max PG (test code = 6.20 mm[Hg] 2544063059) MV Prop V (test code = 54.40 cm/s 2104064290) Ao root diam (test code 3.40 cm = 3495202156) AV peak gradient (test mmHg code = 9557758891) Aortic root (test code 3.4 cm = 8411137261) Ao root annulus (test 3.4 cm code = 9936407655) PW (test code = 1.09 cm 0.6-1.4 9223322406) EF - 2D (test code = 55.90 % 61830267) Interventricular Septum 1.05 cm Diastolic Thickness by 2D (test code = 7541627) Aortic valve mean 83.8 cm/s velocity (test code = 1238754411) Ao VTI (test code = 25.4 cm 0924947954) AV area by cont VTI 3.7 cm2 (test code = 4728060300) AV valve area (test 3.70 cm2 code = 4842119184) AV mean gradient (test mmHg code = 4700246761) Radiology Study observation (narrative) (test code = 86187-6) JULEE (test code = JULEE) ?Left?Ventricle: Left ventricle size is normal. Normal wall thickness. There is concentric remodeling (LVMI 94 g/m2 with RWT 0.48) . Normal wall motion. Normal systolic function with a visually estimated EF of 55 - 60%. Normal diastolic function. ?Right?Ventricle: Normal systolic function. ?Tricuspid?Valve: Insufficient tricuspid regurgitation jet to estimate RVSP.Trace transvalvular regurgitation. ?Aortic?Valve: No hemodynamically significant . ?IVC/SVC: IVC diameter is less than or equal to 21 mm and decreases greater than 50% during inspiration; therefore the estimated right atrial pressure is normal (~0-5 mmHg). ?Pericardium: No pericardial effusion. Left VentricleLeft ventricle size is normal. Normal wall thickness. There is concentric remodeling (LVMI 94 g/m2 with RWT 0.48) . Normal wall motion. Normal systolic function with a visually estimated EF of 55 - 60%. Normal diastolic function.Right VentricleRight ventricle size is normal. Normal systolic function.Left AtriumLeft atrium size is normal. Left atrium volume index is 21.9 mL/m2.Right AtriumRight atrium size is normal.IVC/SVCIVC diameter is less than or equal to 21 mm and decreases greater than 50% during inspiration; therefore the estimated right atrial pressure is normal (~0-5 mmHg).Mitral ValveMitral valve structure is normal. Trace transvalvular regurgitation. No stenosis.Tricuspid ValveTricuspid valve structure is normal. Insufficient tricuspid regurgitation jet to estimate RVSP.Trace transvalvular regurgitation. No stenosis.Aortic ValveAortic valve structure is normal. No transvalvular regurgitation. No hemodynamically significant .Pulmonic ValveNot well visualized. Trace transvalvular regurgitation. No stenosis.Ascending AortaNormal sized annulus and sinus of Valsalva.PericardiumTh e pericardium is normal. No pericardial effusion.Study DetailsStudy quality was adequate. A complete echocardiogram was performed using 2D, color flow Doppler and spectral Doppler. Patient exhibited sinus rhythm. [facility]12[facility]56 Test Item Value Reference Range Interpretation Comments PALB (test code = 70712-5) 16.1 mg/dL 18-45 L Lab Interpretation (test code = Abnormal 35067-2) [facility] 20:12:56 Test Item Value Reference Range Interpretation Comments PALB (test code = 51462-1) 16.1 mg/dL 18-45 L Lab Interpretation (test code = Abnormal 03998-0) [facility] [id number] 17:31:41 Test Item Value Reference Range Interpretation Comments CEA (test code = 11.8 ng/mL 0-10 H 6098919830) JULEE (test code = JULEE) CEA Ranges: Non-Smokers ?0-5.0 ng/mLSmokers ? ? ?0-10.0 ng/mL Lab Interpretation (test Abnormal code = 08339-8) [facility] [id number] 17:31:41 Test Item Value Reference Range Interpretation Comments CEA (test code = 11.8 ng/mL 0-10 H 5614426071) JULEE (test code = JULEE) CEA Ranges: Non-Smokers ?0-5.0 ng/mLSmokers ? ? ?0-10.0 ng/mL Lab Interpretation (test Abnormal code = 69564-7) [facility] [id number] 17:31:41 Test Item Value Reference Range Interpretation Comments CEA (test code = 11.8 ng/mL 0-10 H 8426899941) JULEE (test code = JULEE) CEA Ranges: Non-Smokers ?0-5.0 ng/mLSmokers ? ? ?0-10.0 ng/mL Lab Interpretation (test Abnormal code = 24523-0) [facility] GLUCOSE (AUTOMATED)2021-12-06 17:19:39 Test Item Value Reference Range Interpretation Comments POCT GLU (test code = 7062053093) 210 mg/dL 70-110 H Lab Interpretation (test code = Abnormal 25189-0) [facility] GLUCOSE (AUTOMATED)2021-12-06 17:19:39 Test Item Value Reference Range Interpretation Comments POCT GLU (test code = 9767369408) 210 mg/dL 70-110 H Lab Interpretation (test code = Abnormal 72461-7) [facility] GLUCOSE (AUTOMATED)2021-12-06 17:19:39 Test Item Value Reference Range Interpretation Comments POCT GLU (test code = 6035710860) 210 mg/dL 70-110 H Lab Interpretation (test code = Abnormal 36318-7) [facility] METABOLIC PANEL (NA, K, CL, CO2, GLUCOSE, BUN, CREATININE, CA)2021-12-06 14:48:07 Test Item Value Reference Range Interpretation Comments NA (test code = 134 mmol/L 135-145 L 1027028479) K (test code = 4.7 mmol/L 3.5-5 4563539829) CL (test code = 106 mmol/L 98-108 5732909431) CO2 TOTAL (test code = 24 mmol/L 23-31 5832258575) AGAP (test code = 2-16 2964956464) BUN (test code = 22 mg/dL 7-23 8135625122) GLUCOSE (test code = 138 mg/dL 70-110 H 5078310268) CREATININE (test code = 2.45 mg/dL 0.6-1.25 H 0215068970) CALCIUM (test code = 8.2 mg/dL 8.6-10.6 L 8489032909) eGFR (test code = mL/min/1.73m2 1179225205) JULEE (test code = JULEE) Association of Glomerular Filtration Rate (GFR) and Staging of Kidney Disease* + --+ --+ ------+| GFR (mL/min/1.73 m2) ?| With Kidney Damage ?| ?Without Kidney Damage+ --------+ --------+ +| ?>90 ?| ?Stage one ?| ? Normal ?+ ---+ ---+ -------+| ?60-89 ?| ?Stage two ?| ? Decreased GFR ? + --+ --+ ------+| ?30-59 ?| ?Stage three ?| ? Stage three ? + --+ --+ ------+| ?15-29 ?| ?Stage four ? | ? Stage four ?+ ---+ ---+ -------+| ?<15 (or dialysis) ? ?| ?Stage five ? | ? Stage five ?+ ---+ ---+ -------+ *Each stage assumes the associated GFR level has been in effect for at least three months. ?Stages 1 to 5, with or without kidney disease, indicate chronic kidney disease. Notes: Determination of stages one and two (with eGFR >59mL/min/1.73 m2) requires estimation of kidney damage for at least three months as defined by structural or functional abnormalities of the kidney, manifested by either:Pathological abnormalities or Markers of kidney damage (including abnormalities in the composition of the blood or urine or abnormalities in imaging tests). Lab Interpretation Abnormal (test code = 47949-1) [facility] 14:48:07 Test Item Value Reference Range Interpretation Comments MAGNESIUM (test code = 2782226018) 2.3 mg/dL 1.7-2.4 Lab Interpretation (test code = Normal 87661-8) [facility] (NA, K, CL, CO2, GLUCOSE, BUN, CREATININE, CA)2021-12-06 14:48:07 Test Item Value Reference Range Interpretation Comments NA (test code = 134 mmol/L 135-145 L 6011788313) K (test code = 4.7 mmol/L 3.5-5 7487115488) CL (test code = 106 mmol/L 98-108 6284004304) CO2 TOTAL (test code = 24 mmol/L 23-31 8620803122) AGAP (test code = 2-16 1487638052) BUN (test code = 22 mg/dL 7-23 8877987499) GLUCOSE (test code = 138 mg/dL 70-110 H 4430091981) CREATININE (test code = 2.45 mg/dL 0.6-1.25 H 5362259479) CALCIUM (test code = 8.2 mg/dL 8.6-10.6 L 1510555477) eGFR (test code = mL/min/1.73m2 3401921017) JULEE (test code = JULEE) Association of Glomerular Filtration Rate (GFR) and Staging of Kidney Disease* + --+ --+ ------+| GFR (mL/min/1.73 m2) ?| With Kidney Damage ?| ?Without Kidney Damage+ --------+ --------+ +| ?>90 ?| ?Stage one ?| ? Normal ?+ ---+ ---+ -------+| ?60-89 ?| ?Stage two ?| ? Decreased GFR ? + --+ --+ ------+| ?30-59 ?| ?Stage three ?| ? Stage three ? + --+ --+ ------+| ?15-29 ?| ?Stage four ? | ? Stage four ?+ ---+ ---+ -------+| ?<15 (or dialysis) ? ?| ?Stage five ? | ? Stage five ?+ ---+ ---+ -------+ *Each stage assumes the associated GFR level has been in effect for at least three months. ?Stages 1 to 5, with or without kidney disease, indicate chronic kidney disease. Notes: Determination of stages one and two (with eGFR >59mL/min/1.73 m2) requires estimation of kidney damage for at least three months as defined by structural or functional abnormalities of the kidney, manifested by either:Pathological abnormalities or Markers of kidney damage (including abnormalities in the composition of the blood or urine or abnormalities in imaging tests). Lab Interpretation Abnormal (test code = 79236-4) [facility] 14:48:07 Test Item Value Reference Range Interpretation Comments MAGNESIUM (test code = 2564805387) 2.3 mg/dL 1.7-2.4 Lab Interpretation (test code = Normal 50051-0) [facility] (NA, K, CL, CO2, GLUCOSE, BUN, CREATININE, CA)2021-12-06 14:48:07 Test Item Value Reference Range Interpretation Comments NA (test code = 134 mmol/L 135-145 L 7604328243) K (test code = 4.7 mmol/L 3.5-5 2199552307) CL (test code = 106 mmol/L 98-108 4374196004) CO2 TOTAL (test code = 24 mmol/L 23-31 4507054143) AGAP (test code = 2-16 8460409534) BUN (test code = 22 mg/dL 7-23 3135487506) GLUCOSE (test code = 138 mg/dL 70-110 H 1324581829) CREATININE (test code = 2.45 mg/dL 0.6-1.25 H 0411029858) CALCIUM (test code = 8.2 mg/dL 8.6-10.6 L 0715884485) eGFR (test code = mL/min/1.73m2 2700375272) JULEE (test code = JULEE) Association of Glomerular Filtration Rate (GFR) and Staging of Kidney Disease* + --+ --+ ------+| GFR (mL/min/1.73 m2) ?| With Kidney Damage ?| ?Without Kidney Damage+ --------+ --------+ +| ?>90 ?| ?Stage one ?| ? Normal ?+ ---+ ---+ -------+| ?60-89 ?| ?Stage two ?| ? Decreased GFR ? + --+ --+ ------+| ?30-59 ?| ?Stage three ?| ? Stage three ? + --+ --+ ------+| ?15-29 ?| ?Stage four ? | ? Stage four ?+ ---+ ---+ -------+| ?<15 (or dialysis) ? ?| ?Stage five ? | ? Stage five ?+ ---+ ---+ -------+ *Each stage assumes the associated GFR level has been in effect for at least three months. ?Stages 1 to 5, with or without kidney disease, indicate chronic kidney disease. Notes: Determination of stages one and two (with eGFR >59mL/min/1.73 m2) requires estimation of kidney damage for at least three months as defined by structural or functional abnormalities of the kidney, manifested by either:Pathological abnormalities or Markers of kidney damage (including abnormalities in the composition of the blood or urine or abnormalities in imaging tests). Lab Interpretation Abnormal (test code = 04369-6) [facility] 14[facility]48:07 Test Item Value Reference Range Interpretation Comments MAGNESIUM (test code = 4705630030) 2.3 mg/dL 1.7-2.4 Lab Interpretation (test code = Normal 46814-3) [facility] WITHOUT [id number] 14:28:45 Test Item Value Reference Range Interpretation Comments WBC (test code = 6690-2) See_Comment [A utomated message] The system [employer] generated this result transmit escobar reference range : 4.20 - 10.70 10*3/?L. The reference range was not used to interpret this result as normal/abnormal . RBC (test code = 789-8) See_Comment L [Au tomated message] The system [employer] generated this result transmit escobar reference range : 4.26 - 5.52 10* 6/?L. The reference r blade was not used to interpret this result as normal/abnormal . HGB (test code = 718-7) 8.2 g/dL 12.2-16.4 L HCT (test code = 4544-3) 24.8 % 38.4-49.3 L MCH (test code = 785-6) 26.7 pg 26.1-32.7 MCV (test code = 787-2) 80.8 fL 81.7-95.6 L MCHC (test code = 786-4) 33.1 g/dL 31.2-35 PLT (test code = 777-3) See_Comment H [Au tomated message] The system [employer] generated this result transmit escobar reference range : 150 - 328 10*3/?L. The reference range was not used to interpret this result as normal/abnormal . MPV (test code = 9.3 fL 9.8-13 L 55425-0) RDW-CV (test code = 16.4 % 12.1-15.4 H 788-0) RDW-SD (test code = 47.3 fL 38.5-51.6 57032-7) NRBC x10^3 (test code = See_Comment [Au tomated message] 0912311225) The system [employer] generated this result transmit escobar reference range : 10*3/?L. The reference range was not used to interpret this result as normal/abnormal . NRBC/100 WBC (test code See_Comment [Au tomated message] = 0459430324) The system [employer] generated this result transmit escobar reference range : 0.0 - 10.0 /100 WBC s. The reference r blade was not used to interpret this result as normal/abnormal . IPF % (test code = 1303530471) Lab Interpretation (test Abnormal code = 12196-3) [facility] WITHOUT [id number] 14:28:45 Test Item Value Reference Range Interpretation Comments WBC (test code = 6690-2) See_Comment [A utomated message] The system [employer] generated this result transmit escobar reference range : 4.20 - 10.70 10*3/?L. The reference range was not used to interpret this result as normal/abnormal . RBC (test code = 789-8) See_Comment L [Au tomated message] The system [employer] generated this result transmit escobar reference range : 4.26 - 5.52 10* 6/?L. The reference r blade was not used to interpret this result as normal/abnormal . HGB (test code = 718-7) 8.2 g/dL 12.2-16.4 L HCT (test code = 4544-3) 24.8 % 38.4-49.3 L MCH (test code = 785-6) 26.7 pg 26.1-32.7 MCV (test code = 787-2) 80.8 fL 81.7-95.6 L MCHC (test code = 786-4) 33.1 g/dL 31.2-35 PLT (test code = 777-3) See_Comment H [Au tomated message] The system [employer] generated this result transmit escobar reference range : 150 - 328 10*3/?L. The reference range was not used to interpret this result as normal/abnormal . MPV (test code = 9.3 fL 9.8-13 L 90783-0) RDW-CV (test code = 16.4 % 12.1-15.4 H 788-0) RDW-SD (test code = 47.3 fL 38.5-51.6 20834-9) NRBC x10^3 (test code = See_Comment [Au tomated message] 6381312255) The system [employer] generated this result transmit escobar reference range : 10*3/?L. The reference range was not used to interpret this result as normal/abnormal . NRBC/100 WBC (test code See_Comment [Au tomated message] = 4131268816) The system [facility] generated this result transmit escobar reference range : 0.0 - 10.0 /100 WBC s. The reference r blade was not used to interpret this result as normal/abnormal . IPF % (test code = 2853853324) Lab Interpretation (test Abnormal code = 59474-7) [facility] WITHOUT [id number] 14:28:45 Test Item Value Reference Range Interpretation Comments WBC (test code = 6690-2) See_Comment [A utomated message] The system [employer] generated this result transmit escobar reference range : 4.20 - 10.70 10*3/?L. The reference range was not used to interpret this result as normal/abnormal . RBC (test code = 789-8) See_Comment L [Au tomated message] The system [facility] generated this result transmit escobar reference range : 4.26 - 5.52 10* 6/?L. The reference r blade was not used to interpret this result as normal/abnormal . HGB (test code = 718-7) 8.2 g/dL 12.2-16.4 L HCT (test code = 4544-3) 24.8 % 38.4-49.3 L MCH (test code = 785-6) 26.7 pg 26.1-32.7 MCV (test code = 787-2) 80.8 fL 81.7-95.6 L MCHC (test code = 786-4) 33.1 g/dL 31.2-35 PLT (test code = 777-3) See_Comment H [Au tomated message] The system [employer] generated this result transmit escobar reference range : 150 - 328 10*3/?L. The reference range was not used to interpret this result as normal/abnormal . MPV (test code = 9.3 fL 9.8-13 L 91636-6) RDW-CV (test code = 16.4 % 12.1-15.4 H 788-0) RDW-SD (test code = 47.3 fL 38.5-51.6 35616-0) NRBC x10^3 (test code = See_Comment [Au tomated message] 9007567197) The system [employer] generated this result transmit escobar reference range : 10*3/?L. The reference range was not used to interpret this result as normal/abnormal . NRBC/100 WBC (test code See_Comment [Au tomated message] = 7145396340) The system [employer] generated this result transmit escobar reference range : 0.0 - 10.0 /100 WBC s. The reference r blade was not used to interpret this result as normal/abnormal . IPF % (test code = 8056342044) Lab Interpretation (test Abnormal code = 95355-8) [facility] GLUCOSE (AUTOMATED)2021-12-06 13:32:35 Test Item Value Reference Range Interpretation Comments POCT GLU (test code = 9502120506) 162 mg/dL 70-110 H Lab Interpretation (test code = Abnormal 53202-4) [facility] GLUCOSE (AUTOMATED)2021-12-06 13:32:35 Test Item Value Reference Range Interpretation Comments POCT GLU (test code = 2380508743) 162 mg/dL 70-110 H Lab Interpretation (test code = Abnormal 17537-1) [facility] GLUCOSE (AUTOMATED)2021-12-06 13:32:35 Test Item Value Reference Range Interpretation Comments POCT GLU (test code = 5564171462) 162 mg/dL 70-110 H Lab Interpretation (test code = Abnormal 21880-7) [facility] GLUCOSE (AUTOMATED)2021-12-06 02:28:36 Test Item Value Reference Range Interpretation Comments POCT GLU (test code = 6341205949) 169 mg/dL 70-110 H Lab Interpretation (test code = Abnormal 44293-4) [facility] GLUCOSE (AUTOMATED)2021-12-06 02:28:36 Test Item Value Reference Range Interpretation Comments POCT GLU (test code = 2353513946) 169 mg/dL 70-110 H Lab Interpretation (test code = Abnormal 58440-4) [facility] GLUCOSE (AUTOMATED)2021-12-06 02:28:36 Test Item Value Reference Range Interpretation Comments POCT GLU (test code = 0356540072) 169 mg/dL 70-110 H Lab Interpretation (test code = Abnormal 00304-4) [facility] GLUCOSE (AUTOMATED)2021-12-05 23:47:14 Test Item Value Reference Range Interpretation Comments POCT GLU (test code = 2175332424) 110 mg/dL 70-110 Lab Interpretation (test code = Normal 05762-8) [facility] GLUCOSE (AUTOMATED)2021-12-05 23:47:14 Test Item Value Reference Range Interpretation Comments POCT GLU (test code = 0097863405) 110 mg/dL 70-110 Lab Interpretation (test code = Normal 41991-0) [facility] GLUCOSE (AUTOMATED)2021-12-05 23:47:14 Test Item Value Reference Range Interpretation Comments POCT GLU (test code = 7247144996) 110 mg/dL 70-110 Lab Interpretation (test code = Normal 57989-4) [facility] GLUCOSE (AUTOMATED)2021-12-05 17:14:20 Test Item Value Reference Range Interpretation Comments POCT GLU (test code = 3825785405) 142 mg/dL 70-110 H Lab Interpretation (test code = Abnormal 30042-5) [facility] GLUCOSE (AUTOMATED)2021-12-05 17:14:20 Test Item Value Reference Range Interpretation Comments POCT GLU (test code = 2942176606) 142 mg/dL 70-110 H Lab Interpretation (test code = Abnormal 47111-5) [facility] GLUCOSE (AUTOMATED)2021-12-05 17:14:20 Test Item Value Reference Range Interpretation Comments POCT GLU (test code = 3395485751) 142 mg/dL 70-110 H Lab Interpretation (test code = Abnormal 93989-6) [facility] GLUCOSE (AUTOMATED)2021-12-05 17:14:20 Test Item Value Reference Range Interpretation Comments POCT GLU (test code = 5560647430) 142 mg/dL 70-110 H Lab Interpretation (test code = Abnormal 72034-7) [facility] GLUCOSE (AUTOMATED)2021-12-05 13:34:13 Test Item Value Reference Range Interpretation Comments POCT GLU (test code = 4242074170) 118 mg/dL 70-110 H Lab Interpretation (test code = Abnormal 97640-1) [facility] GLUCOSE (AUTOMATED)2021-12-05 13:34:13 Test Item Value Reference Range Interpretation Comments POCT GLU (test code = 9822864017) 118 mg/dL 70-110 H Lab Interpretation (test code = Abnormal 50576-8) [facility] GLUCOSE (AUTOMATED)2021-12-05 13:34:13 Test Item Value Reference Range Interpretation Comments POCT GLU (test code = 1693172136) 118 mg/dL 70-110 H Lab Interpretation (test code = Abnormal 07482-9) [facility] GLUCOSE (AUTOMATED)2021-12-05 13:34:13 Test Item Value Reference Range Interpretation Comments POCT GLU (test code = 7517189543) 118 mg/dL 70-110 H Lab Interpretation (test code = Abnormal 97824-7) [facility] GLUCOSE (AUTOMATED)2021-12-05 02:32:58 Test Item Value Reference Range Interpretation Comments POCT GLU (test code = 9654943907) 132 mg/dL 70-110 H Lab Interpretation (test code = Abnormal 07636-3) [facility] GLUCOSE (AUTOMATED)2021-12-05 02:32:58 Test Item Value Reference Range Interpretation Comments POCT GLU (test code = 4905123184) 132 mg/dL 70-110 H Lab Interpretation (test code = Abnormal 88343-9) [facility] GLUCOSE (AUTOMATED)2021-12-05 02:32:58 Test Item Value Reference Range Interpretation Comments POCT GLU (test code = 5736070512) 132 mg/dL 70-110 H Lab Interpretation (test code = Abnormal 61118-1) [facility] GLUCOSE (AUTOMATED)2021-12-05 02:32:58 Test Item Value Reference Range Interpretation Comments POCT GLU (test code = 2016969563) 132 mg/dL 70-110 H Lab Interpretation (test code = Abnormal 38012-9) [facility] GLUCOSE (AUTOMATED)2021-12-04 21:49:37 Test Item Value Reference Range Interpretation Comments POCT GLU (test code = 5954049025) 124 mg/dL 70-110 H Lab Interpretation (test code = Abnormal 79018-2) [facility] GLUCOSE (AUTOMATED)2021-12-04 21:49:37 Test Item Value Reference Range Interpretation Comments POCT GLU (test code = 9314247388) 124 mg/dL 70-110 H Lab Interpretation (test code = Abnormal 50176-3) [facility] GLUCOSE (AUTOMATED)2021-12-04 21:49:37 Test Item Value Reference Range Interpretation Comments POCT GLU (test code = 0750667914) 124 mg/dL 70-110 H Lab Interpretation (test code = Abnormal 00850-3) [facility] GLUCOSE (AUTOMATED)2021-12-04 21:49:37 Test Item Value Reference Range Interpretation Comments POCT GLU (test code = 0007969492) 124 mg/dL 70-110 H Lab Interpretation (test code = Abnormal 51513-1) [facility] GLUCOSE (AUTOMATED)2021-12-04 16:51:02 Test Item Value Reference Range Interpretation Comments POCT GLU (test code = 1282610724) 175 mg/dL 70-110 H Lab Interpretation (test code = Abnormal 44202-2) [facility] GLUCOSE (AUTOMATED)2021-12-04 16:51:02 Test Item Value Reference Range Interpretation Comments POCT GLU (test code = 3080543833) 175 mg/dL 70-110 H Lab Interpretation (test code = Abnormal 98593-0) [facility] GLUCOSE (AUTOMATED)2021-12-04 16:51:02 Test Item Value Reference Range Interpretation Comments POCT GLU (test code = 5794183057) 175 mg/dL 70-110 H Lab Interpretation (test code = Abnormal 70640-1) [facility] GLUCOSE (AUTOMATED)2021-12-04 16:51:02 Test Item Value Reference Range Interpretation Comments POCT GLU (test code = 2400085045) 175 mg/dL 70-110 H Lab Interpretation (test code = Abnormal 87999-7) [facility] GLUCOSE (AUTOMATED)2021-12-04 12:42:35 Test Item Value Reference Range Interpretation Comments POCT GLU (test code = 7665953626) 191 mg/dL 70-110 H Lab Interpretation (test code = Abnormal 10465-0) [facility] GLUCOSE (AUTOMATED)2021-12-04 12:42:35 Test Item Value Reference Range Interpretation Comments POCT GLU (test code = 4760714236) 191 mg/dL 70-110 H Lab Interpretation (test code = Abnormal 10499-2) [facility] GLUCOSE (AUTOMATED)2021-12-04 12:42:35 Test Item Value Reference Range Interpretation Comments POCT GLU (test code = 4817213293) 191 mg/dL 70-110 H Lab Interpretation (test code = Abnormal 63699-6) [facility] GLUCOSE (AUTOMATED)2021-12-04 12:42:35 Test Item Value Reference Range Interpretation Comments POCT GLU (test code = 0063161957) 191 mg/dL 70-110 H Lab Interpretation (test code = Abnormal 83021-3) [facility] GLUCOSE (AUTOMATED)2021-12-04 01:46:46 Test Item Value Reference Range Interpretation Comments POCT GLU (test code = 8861225595) 138 mg/dL 70-110 H Lab Interpretation (test code = Abnormal 90319-4) [facility] GLUCOSE (AUTOMATED)2021-12-04 01:46:46 Test Item Value Reference Range Interpretation Comments POCT GLU (test code = 7449661254) 138 mg/dL 70-110 H Lab Interpretation (test code = Abnormal 15856-8) [facility] GLUCOSE (AUTOMATED)2021-12-04 01:46:46 Test Item Value Reference Range Interpretation Comments POCT GLU (test code = 4741633563) 138 mg/dL 70-110 H Lab Interpretation (test code = Abnormal 34984-1) [facility] GLUCOSE (AUTOMATED)2021-12-04 01:46:46 Test Item Value Reference Range Interpretation Comments POCT GLU (test code = 8798215998) 138 mg/dL 70-110 H Lab Interpretation (test code = Abnormal 80918-1) [facility] WITH [id number] 23:01:25 Test Item Value Reference Range Interpretation Comments WBC (test code = See_Comment [Automated 6690-2) message] The sy stem which generated this result transmitted reference range : 4.20 - 10.70 10*3/?L. The reference range was not used to interpret this result as normal/abnormal . RBC (test code = See_Comment L [Automated 789-8) message] The sy stem which generated this result transmitted reference range : 4.26 - 5.52 10*6/?L. The reference range was not used to interpret this result as normal/abnormal . HGB (test code = 7.3 g/dL 12.2-16.4 L 718-7) HCT (test code = 22.3 % 38.4-49.3 L 4544-3) MCV (test code = 80.8 fL 81.7-95.6 L 787-2) MCH (test code = 26.4 pg 26.1-32.7 785-6) MCHC (test code = 32.7 g/dL 31.2-35 786-4) RDW-SD (test code = 46.2 fL 38.5-51.6 90632-3) RDW-CV (test code = 15.7 % 12.1-15.4 H 788-0) PLT (test code = See_Comment H [Automated 777-3) message] The sy stem which generated this result transmitted reference range : 150 - 328 10*3/ ?L. The reference r blade was not used to interpret this result as normal/abnormal . MPV (test code = 9.6 fL 9.8-13 L 16028-3) NRBC/100 WBC (test See_Comment [Automat ed code = 4977391031) message] The system which generated this result transmitted reference range : 0.0 - 10.0 /100 WBCs. The refer ence range was not u sed to interpret th is result as normal/abnormal . NRBC x10^3 (test code See_Comment [Auto mated = 5708922450) message] The s ystem which generated this result transmitted reference range : 10*3/?L. The reference range was not used to interpret this result as normal/abnormal . GRAN MAT (NEUT) % 77.7 % (test code = 770-8) IMM GRAN % (test code 0.70 % = 4404831141) LYMPH % (test code = 7.5 % 736-9) MONO % (test code = 10.2 % 5905-5) EOS % (test code = 3.3 % 713-8) BASO % (test code = 0.6 % 706-2) GRAN MAT x10^3(ANC) 6.78 10*3/uL 1.99-6.95 (test code = 1115723054) IMM GRAN x10^3 (test 0.06 10*3/uL 0-0.06 code = 3029541620) LYMPH x10^3 (test code 0.65 10*3/uL 1.09-3.23 L = 731-0) MONO x10^3 (test code 0.89 10*3/uL 0.36-1.02 = 742-7) EOS x10^3 (test code = 0.29 10*3/uL 0.06-0.53 711-2) BASO x10^3 (test code 0.05 10*3/uL 0.01-0.09 = 704-7) Lab Interpretation Abnormal (test code = 86448-5) [facility] WITH [id number] 23:01:25 Test Item Value Reference Range Interpretation Comments WBC (test code = See_Comment [Automated 8690-2) message] The sy stem which generated this result transmitted reference range : 4.20 - 10.70 10*3/?L. The reference range was not used to interpret this result as normal/abnormal . RBC (test code = See_Comment L [Automated 819-8) message] The sy stem which generated this result transmitted reference range : 4.26 - 5.52 10*6/?L. The reference range was not used to interpret this result as normal/abnormal . HGB (test code = 7.3 g/dL 12.2-16.4 L 718-7) HCT (test code = 22.3 % 38.4-49.3 L 4544-3) MCV (test code = 80.8 fL 81.7-95.6 L 787-2) MCH (test code = 26.4 pg 26.1-32.7 785-6) MCHC (test code = 32.7 g/dL 31.2-35 786-4) RDW-SD (test code = 46.2 fL 38.5-51.6 72960-8) RDW-CV (test code = 15.7 % 12.1-15.4 H 788-0) PLT (test code = See_Comment H [Automated 777-3) message] The sy stem which generated this result transmitted reference range : 150 - 328 10*3/ ?L. The reference r blade was not used to interpret this result as normal/abnormal . MPV (test code = 9.6 fL 9.8-13 L 70993-6) NRBC/100 WBC (test See_Comment [Automat ed code = 2273830771) message] The system which generated this result transmitted reference range : 0.0 - 10.0 /100 WBCs. The refer ence range was not u sed to interpret th is result as normal/abnormal . NRBC x10^3 (test code See_Comment [Auto mated = 1758057443) message] The s ystem which generated this result transmitted reference range : 10*3/?L. The reference range was not used to interpret this result as normal/abnormal . GRAN MAT (NEUT) % 77.7 % (test code = 770-8) IMM GRAN % (test code 0.70 % = 2474619394) LYMPH % (test code = 7.5 % 736-9) MONO % (test code = 10.2 % 5905-5) EOS % (test code = 3.3 % 713-8) BASO % (test code = 0.6 % 706-2) GRAN MAT x10^3(ANC) 6.78 10*3/uL 1.99-6.95 (test code = 6808118263) IMM GRAN x10^3 (test 0.06 10*3/uL 0-0.06 code = 6569081439) LYMPH x10^3 (test code 0.65 10*3/uL 1.09-3.23 L = 731-0) MONO x10^3 (test code 0.89 10*3/uL 0.36-1.02 = 742-7) EOS x10^3 (test code = 0.29 10*3/uL 0.06-0.53 711-2) BASO x10^3 (test code 0.05 10*3/uL 0.01-0.09 = 704-7) Lab Interpretation Abnormal (test code = 29436-5) [facility] WITH [id number] 23:01:25 Test Item Value Reference Range Interpretation Comments WBC (test code = See_Comment [Automated 6690-2) message] The sy stem which generated this result transmitted reference range : 4.20 - 10.70 10*3/?L. The reference range was not used to interpret this result as normal/abnormal . RBC (test code = See_Comment L [Automated 789-8) message] The sy stem which generated this result transmitted reference range : 4.26 - 5.52 10*6/?L. The reference range was not used to interpret this result as normal/abnormal . HGB (test code = 7.3 g/dL 12.2-16.4 L 718-7) HCT (test code = 22.3 % 38.4-49.3 L 4544-3) MCV (test code = 80.8 fL 81.7-95.6 L 787-2) MCH (test code = 26.4 pg 26.1-32.7 785-6) MCHC (test code = 32.7 g/dL 31.2-35 786-4) RDW-SD (test code = 46.2 fL 38.5-51.6 94682-8) RDW-CV (test code = 15.7 % 12.1-15.4 H 788-0) PLT (test code = See_Comment H [Automated 777-3) message] The sy stem which generated this result transmitted reference range : 150 - 328 10*3/ ?L. The reference r blade was not used to interpret this result as normal/abnormal . MPV (test code = 9.6 fL 9.8-13 L 75578-6) NRBC/100 WBC (test See_Comment [Automat ed code = 8451407317) message] The system which generated this result transmitted reference range : 0.0 - 10.0 /100 WBCs. The refer ence range was not u sed to interpret th is result as normal/abnormal . NRBC x10^3 (test code See_Comment [Auto mated = 6682036336) message] The s ystem which generated this result transmitted reference range : 10*3/?L. The reference range was not used to interpret this result as normal/abnormal . GRAN MAT (NEUT) % 77.7 % (test code = 770-8) IMM GRAN % (test code 0.70 % = 3474269502) LYMPH % (test code = 7.5 % 736-9) MONO % (test code = 10.2 % 5905-5) EOS % (test code = 3.3 % 713-8) BASO % (test code = 0.6 % 706-2) GRAN MAT x10^3(ANC) 6.78 10*3/uL 1.99-6.95 (test code = 2845601589) IMM GRAN x10^3 (test 0.06 10*3/uL 0-0.06 code = 8422467432) LYMPH x10^3 (test code 0.65 10*3/uL 1.09-3.23 L = 731-0) MONO x10^3 (test code 0.89 10*3/uL 0.36-1.02 = 742-7) EOS x10^3 (test code = 0.29 10*3/uL 0.06-0.53 711-2) BASO x10^3 (test code 0.05 10*3/uL 0.01-0.09 = 704-7) Lab Interpretation Abnormal (test code = 19773-4) [facility] WITH [id number] 23:01:25 Test Item Value Reference Range Interpretation Comments WBC (test code = See_Comment [Automated 9190-2) message] The sy stem which generated this result transmitted reference range : 4.20 - 10.70 10*3/?L. The reference range was not used to interpret this result as normal/abnormal . RBC (test code = See_Comment L [Automated 189-8) message] The sy stem which generated this result transmitted reference range : 4.26 - 5.52 10*6/?L. The reference range was not used to interpret this result as normal/abnormal . HGB (test code = 7.3 g/dL 12.2-16.4 L 718-7) HCT (test code = 22.3 % 38.4-49.3 L 4544-3) MCV (test code = 80.8 fL 81.7-95.6 L 787-2) MCH (test code = 26.4 pg 26.1-32.7 785-6) MCHC (test code = 32.7 g/dL 31.2-35 786-4) RDW-SD (test code = 46.2 fL 38.5-51.6 82049-5) RDW-CV (test code = 15.7 % 12.1-15.4 H 788-0) PLT (test code = See_Comment H [Automated 777-3) message] The sy stem which generated this result transmitted reference range : 150 - 328 10*3/ ?L. The reference r blade was not used to interpret this result as normal/abnormal . MPV (test code = 9.6 fL 9.8-13 L 07479-2) NRBC/100 WBC (test See_Comment [Automat ed code = 6813060941) message] The system which generated this result transmitted reference range : 0.0 - 10.0 /100 WBCs. The refer ence range was not u sed to interpret th is result as normal/abnormal . NRBC x10^3 (test code See_Comment [Auto mated = 9892446989) message] The s ystem which generated this result transmitted reference range : 10*3/?L. The reference range was not used to interpret this result as normal/abnormal . GRAN MAT (NEUT) % 77.7 % (test code = 770-8) IMM GRAN % (test code 0.70 % = 3044146495) LYMPH % (test code = 7.5 % 736-9) MONO % (test code = 10.2 % 5905-5) EOS % (test code = 3.3 % 713-8) BASO % (test code = 0.6 % 706-2) GRAN MAT x10^3(ANC) 6.78 10*3/uL 1.99-6.95 (test code = 1489887866) IMM GRAN x10^3 (test 0.06 10*3/uL 0-0.06 code = 7316906753) LYMPH x10^3 (test code 0.65 10*3/uL 1.09-3.23 L = 731-0) MONO x10^3 (test code 0.89 10*3/uL 0.36-1.02 = 742-7) EOS x10^3 (test code = 0.29 10*3/uL 0.06-0.53 711-2) BASO x10^3 (test code 0.05 10*3/uL 0.01-0.09 = 704-7) Lab Interpretation Abnormal (test code = 27198-1) [facility] GLUCOSE (AUTOMATED)2021-12-03 21:05:58 Test Item Value Reference Range Interpretation Comments POCT GLU (test code = 3965273376) 195 mg/dL 70-110 H Lab Interpretation (test code = Abnormal 96294-7) [facility] GLUCOSE (AUTOMATED)2021-12-03 21:05:58 Test Item Value Reference Range Interpretation Comments POCT GLU (test code = 0629560163) 195 mg/dL 70-110 H Lab Interpretation (test code = Abnormal 10662-7) [facility] GLUCOSE (AUTOMATED)2021-12-03 21:05:58 Test Item Value Reference Range Interpretation Comments POCT GLU (test code = 4945153071) 195 mg/dL 70-110 H Lab Interpretation (test code = Abnormal 02238-0) [facility] GLUCOSE (AUTOMATED)2021-12-03 21:05:58 Test Item Value Reference Range Interpretation Comments POCT GLU (test code = 1613029044) 195 mg/dL 70-110 H Lab Interpretation (test code = Abnormal 26804-9) [facility] GLUCOSE (AUTOMATED)2021-12-03 16:57:13 Test Item Value Reference Range Interpretation Comments POCT GLU (test code = 5470219286) 138 mg/dL 70-110 H Lab Interpretation (test code = Abnormal 44019-1) [facility] GLUCOSE (AUTOMATED)2021-12-03 16:57:13 Test Item Value Reference Range Interpretation Comments POCT GLU (test code = 2995833743) 138 mg/dL 70-110 H Lab Interpretation (test code = Abnormal 30843-4) [facility] GLUCOSE (AUTOMATED)2021-12-03 16:57:13 Test Item Value Reference Range Interpretation Comments POCT GLU (test code = 0221704317) 138 mg/dL 70-110 H Lab Interpretation (test code = Abnormal 86017-4) [facility] GLUCOSE (AUTOMATED)2021-12-03 16:57:13 Test Item Value Reference Range Interpretation Comments POCT GLU (test code = 1753678058) 138 mg/dL 70-110 H Lab Interpretation (test code = Abnormal 39994-8) [facility] GLUCOSE (AUTOMATED)2021-12-03 13:26:26 Test Item Value Reference Range Interpretation Comments POCT GLU (test code = 1704170707) 94 mg/dL 70-110 Lab Interpretation (test code = Normal 09309-5) [facility] GLUCOSE (AUTOMATED)2021-12-03 13:26:26 Test Item Value Reference Range Interpretation Comments POCT GLU (test code = 5390181031) 94 mg/dL 70-110 Lab Interpretation (test code = Normal 48362-9) [facility] GLUCOSE (AUTOMATED)2021-12-03 13:26:26 Test Item Value Reference Range Interpretation Comments POCT GLU (test code = 9244653395) 94 mg/dL 70-110 Lab Interpretation (test code = Normal 53728-1) [facility] GLUCOSE (AUTOMATED)2021-12-03 13:26:26 Test Item Value Reference Range Interpretation Comments POCT GLU (test code = 1080311002) 94 mg/dL 70-110 Lab Interpretation (test code = Normal 38845-3) [facility] GLUCOSE (AUTOMATED)2021-12-03 01:32:30 Test Item Value Reference Range Interpretation Comments POCT GLU (test code = 1982689625) 110 mg/dL 70-110 Lab Interpretation (test code = Normal 39269-4) [facility] GLUCOSE (AUTOMATED)2021-12-03 01:32:30 Test Item Value Reference Range Interpretation Comments POCT GLU (test code = 2300376062) 110 mg/dL 70-110 Lab Interpretation (test code = Normal 20415-3) [facility] GLUCOSE (AUTOMATED)2021-12-03 01:32:30 Test Item Value Reference Range Interpretation Comments POCT GLU (test code = 7031810793) 110 mg/dL 70-110 Lab Interpretation (test code = Normal 20812-0) [facility] 01:32:30 Test Item Value Reference Range Interpretation Comments POCT GLU (test code = 4823309444) 110 mg/dL 70-110 Lab Interpretation (test code = Normal 31105-3) [facility] Packed RBC (in units), 2 Units 2021-12-02 21:36:39 Test Item Value Reference Range Interpretation Comments Cross Match Result Compatible (test code = 4409) ISBT Blood Type Code (test code = 867194) Unit Blood Type (test B Pos code = 4410) Unit Number (test [id number] code = 4411) Blood Expiration Date & Time (test code = 051787) Status Information Released (test code = 4412) Product Red Blood Cells Identification (test code = 4413) Product Code (test [id number] Performed at [facility] code = 4414) Laboratory Services - [facility] Blood [address] [place] [address]Rmup Free: [phone] A No. [id number] [facility] Packed RBC (in units), 2 Units 2021-12-02 21:36:39 Test Item Value Reference Range Interpretation Comments Cross Match Result Compatible (test code = 4409) ISBT Blood Type Code (test code = 361843) Unit Blood Type (test B Pos code = 4410) Unit Number (test [id number] code = 4411) Blood Expiration Date & Time (test code = 400030) Status Information Released (test code = 4412) Product Red Blood Cells Identification (test code = 4413) Product Code (test [id number] Performed at [facility] code = 4414) Laboratory Services - [facility] Blood [address] [place] [address]Kevn Free: [phone] [id number] [facility] (in units), 2 Units 2021-12-02 21:36:39 Test Item Value Reference Range Interpretation Comments Cross Match Result Compatible (test code = 4409) ISBT Blood Type Code (test code = 920226) Unit Blood Type (test B Pos code = 4410) Unit Number (test [id number] code = 4411) Blood Expiration Date & Time (test code = 874454) Status Information Released (test code = 4412) Product Red Blood Cells Identification (test code = 4413) Product Code (test [id number] Performed at [facility] code = 4414) Laboratory Services [facility] Blood [address] [address]Rpfi Free: [phone] A No. [id number] [facility] RBC (in units), 2 Units 2021-12-02 21:36:39 Test Item Value Reference Range Interpretation Comments Cross Match Result Compatible (test code = 4409) ISBT Blood Type Code (test code = 705068) Unit Blood Type (test B Pos code = 4410) Unit Number (test [id number] code = 4411) Blood Expiration Date & Time (test code = 354409) Status Information Released (test code = 4412) Product Red Blood Cells Identification (test code = 4413) Product Code (test [id number] Performed at [facility] code = 4414) Laboratory Services [facility] Blood [address] [address]Bwpx Free: [phone] A No. [id number] [facility] GLUCOSE (AUTOMATED)2021-12-02 18:00:42 Test Item Value Reference Range Interpretation Comments POCT GLU (test code = 129 mg/dL 70-110 H Notifi ed Provider [id number]) Lab Interpretation (test Abnormal code = 61491-1) [facility] GLUCOSE (AUTOMATED)2021-12-02 18:00:42 Test Item Value Reference Range Interpretation Comments POCT GLU (test code = 129 mg/dL 70-110 H Notifi ed Provider [id number]) Lab Interpretation (test Abnormal code = 07974-4) [facility] GLUCOSE (AUTOMATED)2021-12-02 18:00:42 Test Item Value Reference Range Interpretation Comments POCT GLU (test code = 129 mg/dL 70-110 H Notifi ed Provider [id number]) Lab Interpretation (test Abnormal code = 09057-2) [facility] 18:00:42 Test Item Value Reference Range Interpretation Comments POCT GLU (test code = 129 mg/dL 70-110 H Notifi ed Provider [id number]) Lab Interpretation (test Abnormal code = 93929-4) [facility] (in [facility]), 1 Units 2021-12-02 12:57:47 Test Item Value Reference Range Interpretation Comments Cross Match Result Compatible (test code = 4409) ISBT Blood Type Code (test code = 296710) Unit Blood Type (test B Pos code = 4410) Unit Number (test [id number] code = 4411) Blood Expiration Date & Time (test code = 605545) Status Information Issued (test code = 4412) Product Red Blood Cells Identification (test code = 4413) Product Code (test [id number] Performed at [facility] code = 4414) Laboratory Services - [facility] Blood [address] [address]Ac[place] Free: [phone] [facility]. [id number] [facility]), 1 Units 2021-12-02 12:57:47 Test Item Value Reference Range Interpretation Comments Cross Match Result Compatible (test code = 4409) ISBT Blood Type Code (test code = 675808) Unit Blood Type (test B Pos code = 4410) Unit Number (test [id number] code = 4411) Blood Expiration Date & Time (test code = 988019) Status Information Issued (test code = 4412) Product Red Blood Cells Identification (test code = 4413) Product Code (test E7137R69 Performed at [facility] code = 4414) Laboratory Services - [facility] Blood [address] [place] [address]o Free: [phone] A No. [id number] [facility] RBC (in units), 1 Units 2021-12-02 12:57:47 Test Item Value Reference Range Interpretation Comments Cross Match Result Compatible (test code = 4409) ISBT Blood Type Code (test code = 235573) Unit Blood Type (test B Pos code = 4410) Unit Number (test [id number] code = 4411) Blood Expiration Date & Time (test code = 774436) Status Information Issued (test code = 4412) Product Red Blood Cells Identification (test code = 4413) Product Code (test L1596U54 Performed at [facility] code = 4414) Laboratory Services - [facility] Blood [address] [address] Free: [phone] A No. [id number] [facility] Packed RBC (in units), 1 Units 2021-12-02 12:57:47 Test Item Value Reference Range Interpretation Comments Cross Match Result Compatible (test code = 4409) ISBT Blood Type Code (test code = 735443) Unit Blood Type (test B Pos code = 4410) Unit Number (test [id number] code = 4411) Blood Expiration Date & Time (test code = 568707) Status Information Issued (test code = 4412) Product Red Blood Cells Identification (test code = 4413) Product Code (test R4900Y54 Performed at [facility] code = 4414) Laboratory Services - [facility] Blood [address] [address]Xcts Free: [phone] A No. [id number] [facility] GLUCOSE (AUTOMATED)2021-12-02 12:51:44 Test Item Value Reference Range Interpretation Comments POCT GLU (test code = 9791983737) 153 mg/dL 70-110 H Lab Interpretation (test code = Abnormal 96626-9) [facility] GLUCOSE (AUTOMATED)2021-12-02 12:51:44 Test Item Value Reference Range Interpretation Comments POCT GLU (test code = 7224016942) 153 mg/dL 70-110 H Lab Interpretation (test code = Abnormal 84304-8) [facility] GLUCOSE (AUTOMATED)2021-12-02 12:51:44 Test Item Value Reference Range Interpretation Comments POCT GLU (test code = 7644978987) 153 mg/dL 70-110 H Lab Interpretation (test code = Abnormal 00763-1) [facility] GLUCOSE (AUTOMATED)2021-12-02 12:51:44 Test Item Value Reference Range Interpretation Comments POCT GLU (test code = 4118335996) 153 mg/dL 70-110 H Lab Interpretation (test code = Abnormal 08580-5) [facility] with Ywalarjfotnn9324-63-51 12:24:35 Test Item Value Reference Range Interpretation Comments WBC (test code = See_Comment [Automated 6690-2) message] The sy stem which generated this result transmitted reference range : 4.20 - 10.70 10*3/?L. The reference range was not used to interpret this result as normal/abnormal . RBC (test code = See_Comment L [Automated 789-8) message] The sy stem which generated this result transmitted reference range : 4.26 - 5.52 10*6/?L. The reference range was not used to interpret this result as normal/abnormal . HGB (test code = 5.5 g/dL 12.2-16.4 L 718-7) HCT (test code = 17.3 % 38.4-49.3 L 4544-3) MCV (test code = 81.2 fL 81.7-95.6 L 787-2) MCH (test code = 25.8 pg 26.1-32.7 L 785-6) MCHC (test code = 31.8 g/dL 31.2-35 786-4) RDW-SD (test code = 48.4 fL 38.5-51.6 72806-5) RDW-CV (test code = 16.2 % 12.1-15.4 H 788-0) PLT (test code = See_Comment H [Automated 777-3) message] The sy stem which generated this result transmitted reference range : 150 - 328 10*3/ ?L. The reference r blade was not used to interpret this result as normal/abnormal . MPV (test code = 9.9 fL 9.8-13 85737-5) NRBC/100 WBC (test See_Comment [Automat ed code = 2768525186) message] The system which generated this result transmitted reference range : 0.0 - 10.0 /100 WBCs. The refer ence range was not u sed to interpret th is result as normal/abnormal . NRBC x10^3 (test code See_Comment [Auto mated = 2309788324) message] The s ystem which generated this result transmitted reference range : 10*3/?L. The reference range was not used to interpret this result as normal/abnormal . GRAN MAT (NEUT) % 75.0 % (test code = 770-8) IMM GRAN % (test code 0.70 % = 1540541684) LYMPH % (test code = 11.5 % 736-9) MONO % (test code = 10.4 % 5905-5) EOS % (test code = 2.0 % 713-8) BASO % (test code = 0.4 % 706-2) GRAN MAT x10^3(ANC) 5.76 10*3/uL 1.99-6.95 (test code = 8394421019) IMM GRAN x10^3 (test 0.05 10*3/uL 0-0.06 code = 5107615492) LYMPH x10^3 (test code 0.88 10*3/uL 1.09-3.23 L = 731-0) MONO x10^3 (test code 0.80 10*3/uL 0.36-1.02 = 742-7) EOS x10^3 (test code = 0.15 10*3/uL 0.06-0.53 711-2) BASO x10^3 (test code 0.03 10*3/uL 0.01-0.09 = 704-7) Lab Interpretation Abnormal (test code = 69173-8) [facility] with Zzxnoicbmxmo5058-64-51 12:24:35 Test Item Value Reference Range Interpretation Comments WBC (test code = See_Comment [Automated 8090-2) message] The sy stem which generated this result transmitted reference range : 4.20 - 10.70 10*3/?L. The reference range was not used to interpret this result as normal/abnormal . RBC (test code = See_Comment L [Automated 189-8) message] The sy stem which generated this result transmitted reference range : 4.26 - 5.52 10*6/?L. The reference range was not used to interpret this result as normal/abnormal . HGB (test code = 5.5 g/dL 12.2-16.4 L 718-7) HCT (test code = 17.3 % 38.4-49.3 L 4544-3) MCV (test code = 81.2 fL 81.7-95.6 L 787-2) MCH (test code = 25.8 pg 26.1-32.7 L 785-6) MCHC (test code = 31.8 g/dL 31.2-35 786-4) RDW-SD (test code = 48.4 fL 38.5-51.6 76560-3) RDW-CV (test code = 16.2 % 12.1-15.4 H 788-0) PLT (test code = See_Comment H [Automated 777-3) message] The sy stem which generated this result transmitted reference range : 150 - 328 10*3/ ?L. The reference r blade was not used to interpret this result as normal/abnormal . MPV (test code = 9.9 fL 9.8-13 53627-2) NRBC/100 WBC (test See_Comment [Automat ed code = 7226469523) message] The system which generated this result transmitted reference range : 0.0 - 10.0 /100 WBCs. The refer ence range was not u sed to interpret th is result as normal/abnormal . NRBC x10^3 (test code See_Comment [Auto mated = 3928904602) message] The s ystem which generated this result transmitted reference range : 10*3/?L. The reference range was not used to interpret this result as normal/abnormal . GRAN MAT (NEUT) % 75.0 % (test code = 770-8) IMM GRAN % (test code 0.70 % = 2062437726) LYMPH % (test code = 11.5 % 736-9) MONO % (test code = 10.4 % 5905-5) EOS % (test code = 2.0 % 713-8) BASO % (test code = 0.4 % 706-2) GRAN MAT x10^3(ANC) 5.76 10*3/uL 1.99-6.95 (test code = 3502883176) IMM GRAN x10^3 (test 0.05 10*3/uL 0-0.06 code = 1366391243) LYMPH x10^3 (test code 0.88 10*3/uL 1.09-3.23 L = 731-0) MONO x10^3 (test code 0.80 10*3/uL 0.36-1.02 = 742-7) EOS x10^3 (test code = 0.15 10*3/uL 0.06-0.53 711-2) BASO x10^3 (test code 0.03 10*3/uL 0.01-0.09 = 704-7) Lab Interpretation Abnormal (test code = 96912-2) [facility] with Jphzmbcgtwba2108-81-21 12:24:35 Test Item Value Reference Range Interpretation Comments WBC (test code = See_Comment [Automated 6690-2) message] The sy stem which generated this result transmitted reference range : 4.20 - 10.70 10*3/?L. The reference range was not used to interpret this result as normal/abnormal . RBC (test code = See_Comment L [Automated 789-8) message] The sy stem which generated this result transmitted reference range : 4.26 - 5.52 10*6/?L. The reference range was not used to interpret this result as normal/abnormal . HGB (test code = 5.5 g/dL 12.2-16.4 L 718-7) HCT (test code = 17.3 % 38.4-49.3 L 4544-3) MCV (test code = 81.2 fL 81.7-95.6 L 787-2) MCH (test code = 25.8 pg 26.1-32.7 L 785-6) MCHC (test code = 31.8 g/dL 31.2-35 786-4) RDW-SD (test code = 48.4 fL 38.5-51.6 36176-4) RDW-CV (test code = 16.2 % 12.1-15.4 H 788-0) PLT (test code = See_Comment H [Automated 777-3) message] The sy stem which generated this result transmitted reference range : 150 - 328 10*3/ ?L. The reference r blade was not used to interpret this result as normal/abnormal . MPV (test code = 9.9 fL 9.8-13 91929-8) NRBC/100 WBC (test See_Comment [Automat ed code = 6172023308) message] The system which generated this result transmitted reference range : 0.0 - 10.0 /100 WBCs. The refer ence range was not u sed to interpret th is result as normal/abnormal . NRBC x10^3 (test code See_Comment [Auto mated = 5341533914) message] The s ystem which generated this result transmitted reference range : 10*3/?L. The reference range was not used to interpret this result as normal/abnormal . GRAN MAT (NEUT) % 75.0 % (test code = 770-8) IMM GRAN % (test code 0.70 % = 0029587997) LYMPH % (test code = 11.5 % 736-9) MONO % (test code = 10.4 % 5905-5) EOS % (test code = 2.0 % 713-8) BASO % (test code = 0.4 % 706-2) GRAN MAT x10^3(ANC) 5.76 10*3/uL 1.99-6.95 (test code = 7358787394) IMM GRAN x10^3 (test 0.05 10*3/uL 0-0.06 code = 3550560169) LYMPH x10^3 (test code 0.88 10*3/uL 1.09-3.23 L = 731-0) MONO x10^3 (test code 0.80 10*3/uL 0.36-1.02 = 742-7) EOS x10^3 (test code = 0.15 10*3/uL 0.06-0.53 711-2) BASO x10^3 (test code 0.03 10*3/uL 0.01-0.09 = 704-7) Lab Interpretation Abnormal (test code = 97281-5) [facility] with Cwgvlhjkqxek6484-51-75 12:24:35 Test Item Value Reference Range Interpretation Comments WBC (test code = See_Comment [Automated 1990-2) message] The sy stem which generated this result transmitted reference range : 4.20 - 10.70 10*3/?L. The reference range was not used to interpret this result as normal/abnormal . RBC (test code = See_Comment L [Automated 789-8) message] The sy stem which generated this result transmitted reference range : 4.26 - 5.52 10*6/?L. The reference range was not used to interpret this result as normal/abnormal . HGB (test code = 5.5 g/dL 12.2-16.4 L 718-7) HCT (test code = 17.3 % 38.4-49.3 L 4544-3) MCV (test code = 81.2 fL 81.7-95.6 L 787-2) MCH (test code = 25.8 pg 26.1-32.7 L 785-6) MCHC (test code = 31.8 g/dL 31.2-35 786-4) RDW-SD (test code = 48.4 fL 38.5-51.6 86516-0) RDW-CV (test code = 16.2 % 12.1-15.4 H 788-0) PLT (test code = See_Comment H [Automated 777-3) message] The sy stem which generated this result transmitted reference range : 150 - 328 10*3/ ?L. The reference r blade was not used to interpret this result as normal/abnormal . MPV (test code = 9.9 fL 9.8-13 79513-1) NRBC/100 WBC (test See_Comment [Automat ed code = 3073965494) message] The system which generated this result transmitted reference range : 0.0 - 10.0 /100 WBCs. The refer ence range was not u sed to interpret th is result as normal/abnormal . NRBC x10^3 (test code See_Comment [Auto mated = 1662707483) message] The s ystem which generated this result transmitted reference range : 10*3/?L. The reference range was not used to interpret this result as normal/abnormal . GRAN MAT (NEUT) % 75.0 % (test code = 770-8) IMM GRAN % (test code 0.70 % = 7939762722) LYMPH % (test code = 11.5 % 736-9) MONO % (test code = 10.4 % 5905-5) EOS % (test code = 2.0 % 713-8) BASO % (test code = 0.4 % 706-2) GRAN MAT x10^3(ANC) 5.76 10*3/uL 1.99-6.95 (test code = 6271353897) IMM GRAN x10^3 (test 0.05 10*3/uL 0-0.06 code = 3448282948) LYMPH x10^3 (test code 0.88 10*3/uL 1.09-3.23 L = 731-0) MONO x10^3 (test code 0.80 10*3/uL 0.36-1.02 = 742-7) EOS x10^3 (test code = 0.15 10*3/uL 0.06-0.53 711-2) BASO x10^3 (test code 0.03 10*3/uL 0.01-0.09 = 704-7) Lab Interpretation Abnormal (test code = 42890-8) [facility] METABOLIC PANEL (NA, K, CL, CO2, GLUCOSE, BUN, CREATININE, CA)2021-12-02 12:13:56 Test Item Value Reference Range Interpretation Comments NA (test code = 137 mmol/L 135-145 4898720068) K (test code = 4.9 mmol/L 3.5-5 1470476775) CL (test code = 110 mmol/L 98-108 H 3961149084) CO2 TOTAL (test code = 21 mmol/L 23-31 L 1754618472) AGAP (test code = 2-16 0067013009) BUN (test code = 48 mg/dL 7-23 H 1060610683) GLUCOSE (test code = 147 mg/dL 70-110 H 8633856422) CREATININE (test code = 3.12 mg/dL 0.6-1.25 H 8459358331) CALCIUM (test code = 7.5 mg/dL 8.6-10.6 L 4871300543) eGFR (test code = mL/min/1.73m2 9093368618) JULEE (test code = JULEE) Association of Glomerular Filtration Rate (GFR) and Staging of Kidney Disease* + --+ --+ ------+| GFR (mL/min/1.73 m2) ?| With Kidney Damage ?| ?Without Kidney Damage+ --------+ --------+ +| ?>90 ?| ?Stage one ?| ? Normal ?+ ---+ ---+ -------+| ?60-89 ?| ?Stage two ?| ? Decreased GFR ? + --+ --+ ------+| ?30-59 ?| ?Stage three ?| ? Stage three ? + --+ --+ ------+| ?15-29 ?| ?Stage four ? | ? Stage four ?+ ---+ ---+ -------+| ?<15 (or dialysis) ? ?| ?Stage five ? | ? Stage five ?+ ---+ ---+ -------+ *Each stage assumes the associated GFR level has been in effect for at least three months. ?Stages 1 to 5, with or without kidney disease, indicate chronic kidney disease. Notes: Determination of stages one and two (with eGFR >59mL/min/1.73 m2) requires estimation of kidney damage for at least three months as defined by structural or functional abnormalities of the kidney, manifested by either:Pathological abnormalities or Markers of kidney damage (including abnormalities in the composition of the blood or urine or abnormalities in imaging tests). Lab Interpretation Abnormal (test code = 28842-0) [facility] METABOLIC PANEL (NA, K, CL, CO2, GLUCOSE, BUN, CREATININE, CA)2021-12-02 12:13:56 Test Item Value Reference Range Interpretation Comments NA (test code = 137 mmol/L 135-145 7967494699) K (test code = 4.9 mmol/L 3.5-5 8124592459) CL (test code = 110 mmol/L 98-108 H 3989793816) CO2 TOTAL (test code = 21 mmol/L 23-31 L 4091791699) AGAP (test code = 2-16 0096659831) BUN (test code = 48 mg/dL 7-23 H 5629898404) GLUCOSE (test code = 147 mg/dL 70-110 H 1592916382) CREATININE (test code = 3.12 mg/dL 0.6-1.25 H 6421591917) CALCIUM (test code = 7.5 mg/dL 8.6-10.6 L 5636130567) eGFR (test code = mL/min/1.73m2 7559085287) JULEE (test code = JULEE) Association of Glomerular Filtration Rate (GFR) and Staging of Kidney Disease* + --+ --+ ------+| GFR (mL/min/1.73 m2) ?| With Kidney Damage ?| ?Without Kidney Damage+ --------+ --------+ +| ?>90 ?| ?Stage one ?| ? Normal ?+ ---+ ---+ -------+| ?60-89 ?| ?Stage two ?| ? Decreased GFR ? + --+ --+ ------+| ?30-59 ?| ?Stage three ?| ? Stage three ? + --+ --+ ------+| ?15-29 ?| ?Stage four ? | ? Stage four ?+ ---+ ---+ -------+| ?<15 (or dialysis) ? ?| ?Stage five ? | ? Stage five ?+ ---+ ---+ -------+ *Each stage assumes the associated GFR level has been in effect for at least three months. ?Stages 1 to 5, with or without kidney disease, indicate chronic kidney disease. Notes: Determination of stages one and two (with eGFR >59mL/min/1.73 m2) requires estimation of kidney damage for at least three months as defined by structural or functional abnormalities of the kidney, manifested by either:Pathological abnormalities or Markers of kidney damage (including abnormalities in the composition of the blood or urine or abnormalities in imaging tests). Lab Interpretation Abnormal (test code = 94605-7) [facility] METABOLIC PANEL (NA, K, CL, CO2, GLUCOSE, BUN, CREATININE, CA)2021-12-02 12:13:56 Test Item Value Reference Range Interpretation Comments NA (test code = 137 mmol/L 135-145 5558921301) K (test code = 4.9 mmol/L 3.5-5 5177866097) CL (test code = 110 mmol/L 98-108 H 9468204506) CO2 TOTAL (test code = 21 mmol/L 23-31 L 2842729627) AGAP (test code = 2-16 1981522077) BUN (test code = 48 mg/dL 7-23 H 9051468843) GLUCOSE (test code = 147 mg/dL 70-110 H 0736575778) CREATININE (test code = 3.12 mg/dL 0.6-1.25 H 3579440866) CALCIUM (test code = 7.5 mg/dL 8.6-10.6 L 8573783996) eGFR (test code = mL/min/1.73m2 9063506359) JULEE (test code = JULEE) Association of Glomerular Filtration Rate (GFR) and Staging of Kidney Disease* + --+ --+ ------+| GFR (mL/min/1.73 m2) ?| With Kidney Damage ?| ?Without Kidney Damage+ --------+ --------+ +| ?>90 ?| ?Stage one ?| ? Normal ?+ ---+ ---+ -------+| ?60-89 ?| ?Stage two ?| ? Decreased GFR ? + --+ --+ ------+| ?30-59 ?| ?Stage three ?| ? Stage three ? + --+ --+ ------+| ?15-29 ?| ?Stage four ? | ? Stage four ?+ ---+ ---+ -------+| ?<15 (or dialysis) ? ?| ?Stage five ? | ? Stage five ?+ ---+ ---+ -------+ *Each stage assumes the associated GFR level has been in effect for at least three months. ?Stages 1 to 5, with or without kidney disease, indicate chronic kidney disease. Notes: Determination of stages one and two (with eGFR >59mL/min/1.73 m2) requires estimation of kidney damage for at least three months as defined by structural or functional abnormalities of the kidney, manifested by either:Pathological abnormalities or Markers of kidney damage (including abnormalities in the composition of the blood or urine or abnormalities in imaging tests). Lab Interpretation Abnormal (test code = 35405-5) [facility] (NA, K, CL, CO2, GLUCOSE, BUN, CREATININE, CA)2021-12-02 12:13:56 Test Item Value Reference Range Interpretation Comments NA (test code = 137 mmol/L 135-145 8176420623) K (test code = 4.9 mmol/L 3.5-5 1933252980) CL (test code = 110 mmol/L 98-108 H 5893746556) CO2 TOTAL (test code = 21 mmol/L 23-31 L 9579515832) AGAP (test code = 2-16 4409247034) BUN (test code = 48 mg/dL 7-23 H 4054604682) GLUCOSE (test code = 147 mg/dL 70-110 H 8699373972) CREATININE (test code = 3.12 mg/dL 0.6-1.25 H 9383331191) CALCIUM (test code = 7.5 mg/dL 8.6-10.6 L 5111171263) eGFR (test code = mL/min/1.73m2 6464627811) JULEE (test code = JULEE) Association of Glomerular Filtration Rate (GFR) and Staging of Kidney Disease* + --+ --+ ------+| GFR (mL/min/1.73 m2) ?| With Kidney Damage ?| ?Without Kidney Damage+ --------+ --------+ +| ?>90 ?| ?Stage one ?| ? Normal ?+ ---+ ---+ -------+| ?60-89 ?| ?Stage two ?| ? Decreased GFR ? + --+ --+ ------+| ?30-59 ?| ?Stage three ?| ? Stage three ? + --+ --+ ------+| ?15-29 ?| ?Stage four ? | ? Stage four ?+ ---+ ---+ -------+| ?<15 (or dialysis) ? ?| ?Stage five ? | ? Stage five ?+ ---+ ---+ -------+ *Each stage assumes the associated GFR level has been in effect for at least three months. ?Stages 1 to 5, with or without kidney disease, indicate chronic kidney disease. Notes: Determination of stages one and two (with eGFR >59mL/min/1.73 m2) requires estimation of kidney damage for at least three months as defined by structural or functional abnormalities of the kidney, manifested by either:Pathological abnormalities or Markers of kidney damage (including abnormalities in the composition of the blood or urine or abnormalities in imaging tests). Lab Interpretation Abnormal (test code = 97873-2) [facility] [id number] 09:27:33 Test Item Value Reference Range Interpretation Comments FERRITIN (test code = 35.0 ng/mL 6315980587) JULEE (test code = JULEE) Biotin has been reported to cause a negative bias, interpret results relative to patient's use of biotin. Lab Interpretation (test Normal code = 52317-0) [facility] [id number] 09:27:33 Test Item Value Reference Range Interpretation Comments FERRITIN (test code = 35.0 ng/mL 18-464 5139500268) JULEE (test code = JULEE) Biotin has been reported to cause a negative bias, interpret results relative to patient's use of biotin. Lab Interpretation (test Normal code = 11438-2) [facility] [id number] 09:27:33 Test Item Value Reference Range Interpretation Comments FERRITIN (test code = 35.0 ng/mL 18-464 8390456232) JULEE (test code = JULEE) Biotin has been reported to cause a negative bias, interpret results relative to patient's use of biotin. Lab Interpretation (test Normal code = 11854-4) [facility] [id number] 09:27:33 Test Item Value Reference Range Interpretation Comments FERRITIN (test code = 35.0 ng/mL 18-464 7388122912) JULEE (test code = JULEE) Biotin has been reported to cause a negative bias, interpret results relative to patient's use of biotin. Lab Interpretation (test Normal code = 40511-5) [facility] Packed RBC (in units), 2 Units 2021-12-02 07:44:04 Test Item Value Reference Range Interpretation Comments Cross Match Result Compatible (test code = 4409) ISBT Blood Type Code (test code = 902423) Unit Blood Type (test B Pos code = 4410) Unit Number (test [id number] code = 4411) Blood Expiration Date & Time (test code = 927064) Status Information Issued (test code = 4412) Product Red Blood Cells Identification (test code = 4413) Product Code (test [id number] Performed at [facility] code = 4414) [facility] Services - [facility] Blood [address] [place] [address]Jtit Free: [phone] A No. [id number] [facility] Packed RBC (in units), 2 Units 2021-12-02 07:44:04 Test Item Value Reference Range Interpretation Comments Cross Match Result Compatible (test code = 4409) ISBT Blood Type Code (test code = 798563) Unit Blood Type (test B Pos code = 4410) Unit Number (test [id number] code = 4411) Blood Expiration Date & Time (test code = 709445) Status Information Issued (test code = 4412) Product Red Blood Cells Identification (test code = 4413) Product Code (test C5204X87 Performed at [facility] code = 4414) [facility] Services - [facility] Blood [address] [address]Pxlm Free: [phone] A No. [id number] [facility] Packed RBC (in units), 2 Units 2021-12-02 07:44:04 Test Item Value Reference Range Interpretation Comments Cross Match Result Compatible (test code = 4409) ISBT Blood Type Code (test code = 928172) Unit Blood Type (test B Pos code = 4410) Unit Number (test [id number] code = 4411) Blood Expiration Date & Time (test code = 096625) Status Information Issued (test code = 4412) Product Red Blood Cells Identification (test code = 4413) Product Code (test I5564L47 Performed at [facility] code = 4414) [facility] Services - [facility] Blood [address] [address]Hsld Free: [phone] A No. [id number] [facility] Packed RBC (in units), 2 Units 2021-12-02 07:44:04 Test Item Value Reference Range Interpretation Comments Cross Match Result Compatible (test code = 4409) ISBT Blood Type Code (test code = 461933) Unit Blood Type (test B Pos code = 4410) Unit Number (test [id number] code = 4411) Blood Expiration Date & Time (test code = 651764) Status Information Issued (test code = 4412) Product Red Blood Cells Identification (test code = 4413) Product Code (test [id number] Performed at [facility] code = 4414) [facility] Services - [facility] Blood [address] [address]Jnwh Free: [phone] A No. [id number] [place] 986272-09-30 07:34:03 Test Item Value Reference Range Interpretation Comments IRON (test code = 4406790248) 15 ug/dL 50-160 L TIBC (test code = 0542387479) 400 ug/dL 250-410 % FE SAT (test code = 3384860762) 4 % 20-50 L Lab Interpretation (test code = Abnormal 87887-3) [facility]2022-09-30 07:34:03 Test Item Value Reference Range Interpretation Comments IRON (test code = 2109787924) 15 ug/dL 50-160 L TIBC (test code = 3776882594) 400 ug/dL 250-410 % FE SAT (test code = 2468583428) 4 % 20-50 L Lab Interpretation (test code = Abnormal 79053-1) [place] [id number] 07:34:03 Test Item Value Reference Range Interpretation Comments IRON (test code = 2844218270) 15 ug/dL 50-160 L TIBC (test code = 7610902133) 400 ug/dL 250-410 % FE SAT (test code = 9908910329) 4 % 20-50 L Lab Interpretation (test code = Abnormal 86524-2) [facility]2022-09-30 07:34:03 Test Item Value Reference Range Interpretation Comments IRON (test code = 3582062828) 15 ug/dL 50-160 L TIBC (test code = 7901180157) 400 ug/dL 250-410 % FE SAT (test code = 8844106276) 4 % 20-50 L Lab Interpretation (test code = Abnormal 23347-8) [facility]2022-09-30 07:03:59 Test Item Value Reference Range Interpretation Comments Fibrinogen (test code = 3089623242) 657 mg/dL 167-453 H Lab Interpretation (test code = Abnormal 66599-5) [facility]2022-09-30 07:03:59 Test Item Value Reference Range Interpretation Comments Fibrinogen (test code = 4648774602) 657 mg/dL 167-453 H Lab Interpretation (test code = Abnormal 35569-7) [facility]2022-09-30 07:03:59 Test Item Value Reference Range Interpretation Comments Fibrinogen (test code = 7614512790) 657 mg/dL 167-453 H Lab Interpretation (test code = Abnormal 22048-0) [facility] Test Item Value Reference Range Interpretation Comments Fibrinogen (test code = 1629561973) 657 mg/dL 167-453 H Lab Interpretation (test code = Abnormal 20539-4) [facility] and Screen - ONCE [id number] 04:26:59 Test Item Value Reference Range Interpretation Comments ABO & RH (test code B POSITIVE Performe d at [facility] = 20) [facility] [address] [address]Awkq Free: [phone] A No. [id number] IAT (test code = Negative Performed a t [facility] 1185) [facility] [address] [address]Mmet Free: [phone] A No. [id number] [facility] and Screen - ONCE [id number] 04:26:59 Test Item Value Reference Range Interpretation Comments ABO & RH (test code B POSITIVE Performe d at [facility] = 20) [facility] [address] [place] [address]Rpvp Free: [phone] A No. [id number] IAT (test code = Negative Performed a t [facility] 1185) [facility] [address] [place] [address]Rwrz Free: [phone] A No. [id number] [facility] and Screen - ONCE [id number] 04:26:59 Test Item Value Reference Range Interpretation Comments ABO & RH (test code B POSITIVE Performe d at [facility] = 20) [facility] [address] [place] [address]Ecxo Free: [phone] A No. [id number] IAT (test code = Negative Performed a t [facility] 1185) [facility] [address] [facility] [address]Vzhs Free: [phone] A No. [id number] [facility] [id number] 04:26:59 Test Item Value Reference Range Interpretation Comments ABO & RH (test code B POSITIVE Performe d at [facility] = 20) [facility] [address]Hnia Free: [phone] A No. [id number] IAT (test code = Negative Performed a t [facility] 1185) [facility] [address]Zfvm Free: [phone] A No. [id number] [facility] [id number] 04:21:00 Test Item Value Reference Interpretation Comments Range TROPONIN I (test 0.005 ng/mL See_Comment [Automated code = 9292067187) message] The system which generated this result transmitted reference range : <=0.034. The reference range was not used to interpret this result as normal/abnormal . JULEE (test code = Reference (Normal) JULEE) Range (defined by the 99th percentile reference limit): <= 0.034 ng/mL Note: Cardiac troponin begins to rise 3-4 hours after the onset of ischemia. Repeat in 4-6 hours if the sample was drawn within 3-4 hours of the onset of the symptom and found normal. Diagnosis of myocardial injury is made with acute changes in cTn concentrations with at least one serial sample above the 99th percentile upper reference limit (URL), taken together with the patient's clinical presentation. Biotin has been reported to cause a negative bias, interpret results relative to patient's use of biotin. Lab Interpretation Normal (test code = 89384-0) [facility] [id number] 04:21:00 Test Item Value Reference Range Interpretation Comments NT-proBNP (test code 1390 pg/mL See_Comment H [Autom ated = 8972872484) message] The system which generated this result transmitted reference range : <=125. The reference range was not used to interpret this result as normal/abnormal . JULEE (test code = JULEE) Biotin has been reported to cause a negative bias, interpret results relative to patient's use of biotin. Lab Interpretation Abnormal (test code = 59791-8) [facility] [id number] 04:21:00 Test Item Value Reference Interpretation Comments Range TROPONIN I (test 0.005 ng/mL See_Comment [Automated code = 8823099080) message] The system which generated this result transmitted reference range : <=0.034. The reference range was not used to interpret this result as normal/abnormal . JULEE (test code = Reference (Normal) JULEE) Range (defined by the 99th percentile reference limit): <= 0.034 ng/mL Note: Cardiac troponin begins to rise 3-4 hours after the onset of ischemia. Repeat in 4-6 hours if the sample was drawn within 3-4 hours of the onset of the symptom and found normal. Diagnosis of myocardial injury is made with acute changes in cTn concentrations with at least one serial sample above the 99th percentile upper reference limit (URL), taken together with the patient's clinical presentation. Biotin has been reported to cause a negative bias, interpret results relative to patient's use of biotin. Lab Interpretation Normal (test code = 86665-3) [facility] [id number] 04:21:00 Test Item Value Reference Range Interpretation Comments NT-proBNP (test code 1390 pg/mL See_Comment H [Autom ated = 3422230900) message] The system which generated this result transmitted reference range : <=125. The reference range was not used to interpret this result as normal/abnormal . JULEE (test code = JULEE) Biotin has been reported to cause a negative bias, interpret results relative to patient's use of biotin. Lab Interpretation Abnormal (test code = 52104-2) [facility] [id number] 04:21:00 Test Item Value Reference Interpretation Comments Range TROPONIN I (test 0.005 ng/mL See_Comment [Automated code = 7727695439) message] The system which generated this result transmitted reference range : <=0.034. The reference range was not used to interpret this result as normal/abnormal . JULEE (test code = Reference (Normal) JULEE) Range (defined by the 99th percentile reference limit): <= 0.034 ng/mL Note: Cardiac troponin begins to rise 3-4 hours after the onset of ischemia. Repeat in 4-6 hours if the sample was drawn within 3-4 hours of the onset of the symptom and found normal. Diagnosis of myocardial injury is made with acute changes in cTn concentrations with at least one serial sample above the 99th percentile upper reference limit (URL), taken together with the patient's clinical presentation. Biotin has been reported to cause a negative bias, interpret results relative to patient's use of biotin. Lab Interpretation Normal (test code = 83887-9) [facility] [id number] 04:21:00 Test Item Value Reference Range Interpretation Comments NT-proBNP (test code 1390 pg/mL See_Comment H [Autom ated = 9305800892) message] The system which generated this result transmitted reference range : <=125. The reference range was not used to interpret this result as normal/abnormal . JULEE (test code = JULEE) Biotin has been reported to cause a negative bias, interpret results relative to patient's use of biotin. Lab Interpretation Abnormal (test code = 28425-9) [facility] [id number] 04:21:00 Test Item Value Reference Interpretation Comments Range TROPONIN I (test 0.005 ng/mL See_Comment [Automated code = 0195767240) message] The system which generated this result transmitted reference range : <=0.034. The reference range was not used to interpret this result as normal/abnormal . JULEE (test code = Reference (Normal) JULEE) Range (defined by the 99th percentile reference limit): <= 0.034 ng/mL Note: Cardiac troponin begins to rise 3-4 hours after the onset of ischemia. Repeat in 4-6 hours if the sample was drawn within 3-4 hours of the onset of the symptom and found normal. Diagnosis of myocardial injury is made with acute changes in cTn concentrations with at least one serial sample above the 99th percentile upper reference limit (URL), taken together with the patient's clinical presentation. Biotin has been reported to cause a negative bias, interpret results relative to patient's use of biotin. Lab Interpretation Normal (test code = 96685-3) [facility] [id number] 04:21:00 Test Item Value Reference Range Interpretation Comments NT-proBNP (test code 1390 pg/mL See_Comment H [Autom ated = 9940557829) message] The system which generated this result transmitted reference range : <=125. The reference range was not used to interpret this result as normal/abnormal . JULEE (test code = JULEE) Biotin has been reported to cause a negative bias, interpret results relative to patient's use of biotin. Lab Interpretation Abnormal (test code = 14553-0) [facility] WITH [id number] 04:12:37 Test Item Value Reference Range Interpretation Comments WBC (test code = See_Comment H [Automated 6690-2) message] The sy stem which generated this result transmitted reference range : 4.20 - 10.70 10*3/?L. The reference range was not used to interpret this result as normal/abnormal . RBC (test code = See_Comment L [Automated 789-8) message] The sy stem which generated this result transmitted reference range : 4.26 - 5.52 10*6/?L. The reference range was not used to interpret this result as normal/abnormal . HGB (test code = 4.6 g/dL 12.2-16.4 LL 718-7) HCT (test code = 14.7 % 38.4-49.3 LL 4544-3) MCV (test code = 77.0 fL 81.7-95.6 L 787-2) MCH (test code = 24.1 pg 26.1-32.7 L 785-6) MCHC (test code = 31.3 g/dL 31.2-35 786-4) RDW-SD (test code = 45.7 fL 38.5-51.6 56433-6) RDW-CV (test code = 16.2 % 12.1-15.4 H 788-0) PLT (test code = See_Comment H [Automated 777-3) message] The sy stem which generated this result transmitted reference range : 150 - 328 10*3/ ?L. The reference r blade was not used to interpret this result as normal/abnormal . MPV (test code = 10.0 fL 9.8-13 63658-3) NRBC/100 WBC (test See_Comment [Automat ed code = 0389463792) message] The system which generated this result transmitted reference range : 0.0 - 10.0 /100 WBCs. The refer ence range was not u sed to interpret th is result as normal/abnormal . NRBC x10^3 (test code See_Comment [Auto mated = 0544067510) message] The s ystem which generated this result transmitted reference range : 10*3/?L. The reference range was not used to interpret this result as normal/abnormal . GRAN MAT (NEUT) % 79.4 % (test code = 770-8) IMM GRAN % (test code 0.70 % = 4210820116) LYMPH % (test code = 8.2 % 736-9) MONO % (test code = 9.6 % 5905-5) EOS % (test code = 1.7 % 713-8) BASO % (test code = 0.4 % 706-2) GRAN MAT x10^3(ANC) 9.05 10*3/uL 1.99-6.95 H (test code = 7643857472) IMM GRAN x10^3 (test 0.08 10*3/uL 0-0.06 H code = 1403171452) LYMPH x10^3 (test code 0.94 10*3/uL 1.09-3.23 L = 731-0) MONO x10^3 (test code 1.10 10*3/uL 0.36-1.02 H = 742-7) EOS x10^3 (test code = 0.19 10*3/uL 0.06-0.53 711-2) BASO x10^3 (test code 0.04 10*3/uL 0.01-0.09 = 704-7) Lab Interpretation Abnormal (test code = 94896-4) [facility] WITH [id number] 04:12:37 Test Item Value Reference Range Interpretation Comments WBC (test code = See_Comment H [Automated 6690-2) message] The sy stem which generated this result transmitted reference range : 4.20 - 10.70 10*3/?L. The reference range was not used to interpret this result as normal/abnormal . RBC (test code = See_Comment L [Automated 789-8) message] The sy stem which generated this result transmitted reference range : 4.26 - 5.52 10*6/?L. The reference range was not used to interpret this result as normal/abnormal . HGB (test code = 4.6 g/dL 12.2-16.4 LL 718-7) HCT (test code = 14.7 % 38.4-49.3 LL 4544-3) MCV (test code = 77.0 fL 81.7-95.6 L 787-2) MCH (test code = 24.1 pg 26.1-32.7 L 785-6) MCHC (test code = 31.3 g/dL 31.2-35 786-4) RDW-SD (test code = 45.7 fL 38.5-51.6 66155-9) RDW-CV (test code = 16.2 % 12.1-15.4 H 788-0) PLT (test code = See_Comment H [Automated 777-3) message] The sy stem which generated this result transmitted reference range : 150 - 328 10*3/ ?L. The reference r blade was not used to interpret this result as normal/abnormal . MPV (test code = 10.0 fL 9.8-13 32245-6) NRBC/100 WBC (test See_Comment [Automat ed code = 4537785155) message] The system which generated this result transmitted reference range : 0.0 - 10.0 /100 WBCs. The refer ence range was not u sed to interpret th is result as normal/abnormal . NRBC x10^3 (test code See_Comment [Auto mated = 6449993948) message] The s ystem which generated this result transmitted reference range : 10*3/?L. The reference range was not used to interpret this result as normal/abnormal . GRAN MAT (NEUT) % 79.4 % (test code = 770-8) IMM GRAN % (test code 0.70 % = 2784061591) LYMPH % (test code = 8.2 % 736-9) MONO % (test code = 9.6 % 5905-5) EOS % (test code = 1.7 % 713-8) BASO % (test code = 0.4 % 706-2) GRAN MAT x10^3(ANC) 9.05 10*3/uL 1.99-6.95 H (test code = 4704616042) IMM GRAN x10^3 (test 0.08 10*3/uL 0-0.06 H code = 0567039068) LYMPH x10^3 (test code 0.94 10*3/uL 1.09-3.23 L = 731-0) MONO x10^3 (test code 1.10 10*3/uL 0.36-1.02 H = 742-7) EOS x10^3 (test code = 0.19 10*3/uL 0.06-0.53 711-2) BASO x10^3 (test code 0.04 10*3/uL 0.01-0.09 = 704-7) Lab Interpretation Abnormal (test code = 74584-6) [facility] WITH [id number] 04:12:37 Test Item Value Reference Range Interpretation Comments WBC (test code = See_Comment H [Automated 6690-2) message] The sy stem which generated this result transmitted reference range : 4.20 - 10.70 10*3/?L. The reference range was not used to interpret this result as normal/abnormal . RBC (test code = See_Comment L [Automated 789-8) message] The sy stem which generated this result transmitted reference range : 4.26 - 5.52 10*6/?L. The reference range was not used to interpret this result as normal/abnormal . HGB (test code = 4.6 g/dL 12.2-16.4 LL 718-7) HCT (test code = 14.7 % 38.4-49.3 LL 4544-3) MCV (test code = 77.0 fL 81.7-95.6 L 787-2) MCH (test code = 24.1 pg 26.1-32.7 L 785-6) MCHC (test code = 31.3 g/dL 31.2-35 786-4) RDW-SD (test code = 45.7 fL 38.5-51.6 63490-2) RDW-CV (test code = 16.2 % 12.1-15.4 H 788-0) PLT (test code = See_Comment H [Automated 777-3) message] The sy stem which generated this result transmitted reference range : 150 - 328 10*3/ ?L. The reference r blade was not used to interpret this result as normal/abnormal . MPV (test code = 10.0 fL 9.8-13 51945-0) NRBC/100 WBC (test See_Comment [Automat ed code = 4319956389) message] The system which generated this result transmitted reference range : 0.0 - 10.0 /100 WBCs. The refer ence range was not u sed to interpret th is result as normal/abnormal . NRBC x10^3 (test code See_Comment [Auto mated = 7024248839) message] The s ystem which generated this result transmitted reference range : 10*3/?L. The reference range was not used to interpret this result as normal/abnormal . GRAN MAT (NEUT) % 79.4 % (test code = 770-8) IMM GRAN % (test code 0.70 % = 0086719145) LYMPH % (test code = 8.2 % 736-9) MONO % (test code = 9.6 % 5905-5) EOS % (test code = 1.7 % 713-8) BASO % (test code = 0.4 % 706-2) GRAN MAT x10^3(ANC) 9.05 10*3/uL 1.99-6.95 H (test code = 1001280748) IMM GRAN x10^3 (test 0.08 10*3/uL 0-0.06 H code = 9325784379) LYMPH x10^3 (test code 0.94 10*3/uL 1.09-3.23 L = 731-0) MONO x10^3 (test code 1.10 10*3/uL 0.36-1.02 H = 742-7) EOS x10^3 (test code = 0.19 10*3/uL 0.06-0.53 711-2) BASO x10^3 (test code 0.04 10*3/uL 0.01-0.09 = 704-7) Lab Interpretation Abnormal (test code = 50104-4) [facility] WITH [id number] 04:12:37 Test Item Value Reference Range Interpretation Comments WBC (test code = See_Comment H [Automated 6690-2) message] The sy stem which generated this result transmitted reference range : 4.20 - 10.70 10*3/?L. The reference range was not used to interpret this result as normal/abnormal . RBC (test code = See_Comment L [Automated 789-8) message] The sy stem which generated this result transmitted reference range : 4.26 - 5.52 10*6/?L. The reference range was not used to interpret this result as normal/abnormal . HGB (test code = 4.6 g/dL 12.2-16.4 LL 718-7) HCT (test code = 14.7 % 38.4-49.3 LL 4544-3) MCV (test code = 77.0 fL 81.7-95.6 L 787-2) MCH (test code = 24.1 pg 26.1-32.7 L 785-6) MCHC (test code = 31.3 g/dL 31.2-35 786-4) RDW-SD (test code = 45.7 fL 38.5-51.6 76954-6) RDW-CV (test code = 16.2 % 12.1-15.4 H 788-0) PLT (test code = See_Comment H [Automated 777-3) message] The sy stem which generated this result transmitted reference range : 150 - 328 10*3/ ?L. The reference r blade was not used to interpret this result as normal/abnormal . MPV (test code = 10.0 fL 9.8-13 04117-3) NRBC/100 WBC (test See_Comment [Automat ed code = 6379096986) message] The system which generated this result transmitted reference range : 0.0 - 10.0 /100 WBCs. The refer ence range was not u sed to interpret th is result as normal/abnormal . NRBC x10^3 (test code See_Comment [Auto mated = 9178731389) message] The s ystem which generated this result transmitted reference range : 10*3/?L. The reference range was not used to interpret this result as normal/abnormal . GRAN MAT (NEUT) % 79.4 % (test code = 770-8) IMM GRAN % (test code 0.70 % = 0118218770) LYMPH % (test code = 8.2 % 736-9) MONO % (test code = 9.6 % 5905-5) EOS % (test code = 1.7 % 713-8) BASO % (test code = 0.4 % 706-2) GRAN MAT x10^3(ANC) 9.05 10*3/uL 1.99-6.95 H (test code = 9429374439) IMM GRAN x10^3 (test 0.08 10*3/uL 0-0.06 H code = 0019544733) LYMPH x10^3 (test code 0.94 10*3/uL 1.09-3.23 L = 731-0) MONO x10^3 (test code 1.10 10*3/uL 0.36-1.02 H = 742-7) EOS x10^3 (test code = 0.19 10*3/uL 0.06-0.53 711-2) BASO x10^3 (test code 0.04 10*3/uL 0.01-0.09 = 704-7) Lab Interpretation Abnormal (test code = 99851-3) [facility] ([id number][facility]21-[facility]-02 04:09:00 Test Item Value Reference Range Interpretation Comments NA (test code = 136 mmol/L 135-145 7253257455) K (test code = 5.3 mmol/L 3.5-5 H 7155217872) CL (test code = 105 mmol/L 98-108 3649615649) CO2 TOTAL (test code = 20 mmol/L 23-31 L 8896937336) AGAP (test code = 2-16 2749216733) BUN (test code = 50 mg/dL 7-23 H 6467716687) GLUCOSE (test code = 157 mg/dL 70-110 H 4617708950) CREATININE (test code = 3.67 mg/dL 0.6-1.25 H 6140124420) TOTAL BILI (test code = 0.2 mg/dL 0.1-1.3 6627537197) CALCIUM (test code = 8.2 mg/dL 8.6-10.6 L 6016481908) T PROTEIN (test code = 6.8 g/dL 6.3-8.2 0243253117) ALBUMIN (test code = 3.4 g/dL 3.5-5 L 5321721789) ALK PHOS (test code = 85 U/L 34-122 9870279727) ALTv (test code = 14 U/L 5-50 1742-6) AST(SGOT) (test code = 16 U/L 13-40 0878382961) eGFR (test code = mL/min/1.73m2 3375576192) JULEE (test code = JULEE) Association of Glomerular Filtration Rate (GFR) and Staging of Kidney Disease* + --+ --+ ------+| GFR (mL/min/1.73 m2) ?| With Kidney Damage ?| ?Without Kidney Damage+ --------+ --------+ +| ?>90 ?| ?Stage one ?| ? Normal ?+ ---+ ---+ -------+| ?60-89 ?| ?Stage two ?| ? Decreased GFR ? + --+ --+ ------+| ?30-59 ?| ?Stage three ?| ? Stage three ? + --+ --+ ------+| ?15-29 ?| ?Stage four ? | ? Stage four ?+ ---+ ---+ -------+| ?<15 (or dialysis) ? ?| ?Stage five ? | ? Stage five ?+ ---+ ---+ -------+ *Each stage assumes the associated GFR level has been in effect for at least three months. ?Stages 1 to 5, with or without kidney disease, indicate chronic kidney disease. Notes: Determination of stages one and two (with eGFR >59mL/min/1.73 m2) requires estimation of kidney damage for at least three months as defined by structural or functional abnormalities of the kidney, manifested by either:Pathological abnormalities or Markers of kidney damage (including abnormalities in the composition of the blood or urine or abnormalities in imaging tests). Lab Interpretation Abnormal (test code = 71997-2) [facility]. METABOLIC PANEL ([id number])2021-12-02 04:09:00 Test Item Value Reference Range Interpretation Comments NA (test code = 136 mmol/L 135-145 1268799538) K (test code = 5.3 mmol/L 3.5-5 H 5438876451) CL (test code = 105 mmol/L 98-108 4633613146) CO2 TOTAL (test code = 20 mmol/L 23-31 L 0980594571) AGAP (test code = 2-16 4542590003) BUN (test code = 50 mg/dL 7-23 H 8146460800) GLUCOSE (test code = 157 mg/dL 70-110 H 6123569173) CREATININE (test code = 3.67 mg/dL 0.6-1.25 H 5614698192) TOTAL BILI (test code = 0.2 mg/dL 0.1-1.6 1906922671) CALCIUM (test code = 8.2 mg/dL 8.6-10.6 L 4167565839) T PROTEIN (test code = 6.8 g/dL 6.3-8.2 6230628751) ALBUMIN (test code = 3.4 g/dL 3.5-5 L 4248025383) ALK PHOS (test code = 85 U/L 34-122 1719603667) ALTv (test code = 14 U/L 5-50 1742-6) AST(SGOT) (test code = 16 U/L 13-40 0837321872) eGFR (test code = mL/min/1.73m2 7987281044) JULEE (test code = JULEE) Association of Glomerular Filtration Rate (GFR) and Staging of Kidney Disease* + --+ --+ ------+| GFR (mL/min/1.73 m2) ?| With Kidney Damage ?| ?Without Kidney Damage+ --------+ --------+ +| ?>90 ?| ?Stage one ?| ? Normal ?+ ---+ ---+ -------+| ?60-89 ?| ?Stage two ?| ? Decreased GFR ? + --+ --+ ------+| ?30-59 ?| ?Stage three ?| ? Stage three ? + --+ --+ ------+| ?15-29 ?| ?Stage four ? | ? Stage four ?+ ---+ ---+ -------+| ?<15 (or dialysis) ? ?| ?Stage five ? | ? Stage five ?+ ---+ ---+ -------+ *Each stage assumes the associated GFR level has been in effect for at least three months. ?Stages 1 to 5, with or without kidney disease, indicate chronic kidney disease. Notes: Determination of stages one and two (with eGFR >59mL/min/1.73 m2) requires estimation of kidney damage for at least three months as defined by structural or functional abnormalities of the kidney, manifested by either:Pathological abnormalities or Markers of kidney damage (including abnormalities in the composition of the blood or urine or abnormalities in imaging tests). Lab Interpretation Abnormal (test code = 58613-0) [facility]. METABOLIC PANEL ([id number])2021-12-02 04:09:00 Test Item Value Reference Range Interpretation Comments NA (test code = 136 mmol/L 135-145 7601448440) K (test code = 5.3 mmol/L 3.5-5 H 3641595783) CL (test code = 105 mmol/L 98-108 5852799379) CO2 TOTAL (test code = 20 mmol/L 23-31 L 6711374605) AGAP (test code = 2-16 5233187868) BUN (test code = 50 mg/dL 7-23 H 3981130616) GLUCOSE (test code = 157 mg/dL 70-110 H 3580984308) CREATININE (test code = 3.67 mg/dL 0.6-1.25 H 3496162312) TOTAL BILI (test code = 0.2 mg/dL 0.1-1.6 [id number]) CALCIUM (test code = 8.2 mg/dL 8.6-10.6 L 4362154134) T PROTEIN (test code = 6.8 g/dL 6.3-8.2 6915161337) ALBUMIN (test code = 3.4 g/dL 3.5-5 L 5642381720) ALK PHOS (test code = 85 U/L 34-122 2350041570) ALTv (test code = 14 U/L 5-50 1742-6) AST(SGOT) (test code = 16 U/L 13-40 3953894256) eGFR (test code = mL/min/1.73m2 9508285053) JULEE (test code = JULEE) Association of Glomerular Filtration Rate (GFR) and Staging of Kidney Disease* + --+ --+ ------+| GFR (mL/min/1.73 m2) ?| With Kidney Damage ?| ?Without Kidney Damage+ --------+ --------+ +| ?>90 ?| ?Stage one ?| ? Normal ?+ ---+ ---+ -------+| ?60-89 ?| ?Stage two ?| ? Decreased GFR ? + --+ --+ ------+| ?30-59 ?| ?Stage three ?| ? Stage three ? + --+ --+ ------+| ?15-29 ?| ?Stage four ? | ? Stage four ?+ ---+ ---+ -------+| ?<15 (or dialysis) ? ?| ?Stage five ? | ? Stage five ?+ ---+ ---+ -------+ *Each stage assumes the associated GFR level has been in effect for at least three months. ?Stages 1 to 5, with or without kidney disease, indicate chronic kidney disease. Notes: Determination of stages one and two (with eGFR >59mL/min/1.73 m2) requires estimation of kidney damage for at least three months as defined by structural or functional abnormalities of the kidney, manifested by either:Pathological abnormalities or Markers of kidney damage (including abnormalities in the composition of the blood or urine or abnormalities in imaging tests). Lab Interpretation Abnormal (test code = 75168-0) [facility]. METABOLIC PANEL ([id number])2021-12-02 04:09:00 Test Item Value Reference Range Interpretation Comments NA (test code = 136 mmol/L 135-145 8865856212) K (test code = 5.3 mmol/L 3.5-5 H 7975785294) CL (test code = 105 mmol/L 98-108 9983081455) CO2 TOTAL (test code = 20 mmol/L 23-31 L 4848650053) AGAP (test code = 2-16 6088559224) BUN (test code = 50 mg/dL 7-23 H 6514871557) GLUCOSE (test code = 157 mg/dL 70-110 H 3365035972) CREATININE (test code = 3.67 mg/dL 0.6-1.25 H 1296917533) TOTAL BILI (test code = 0.2 mg/dL 0.1-1.2 4640823164) CALCIUM (test code = 8.2 mg/dL 8.6-10.6 L 3712783272) T PROTEIN (test code = 6.8 g/dL 6.3-8.2 5531198003) ALBUMIN (test code = 3.4 g/dL 3.5-5 L 9591739903) ALK PHOS (test code = 85 U/L 34-122 6758612497) ALTv (test code = 14 U/L 5-50 1742-6) AST(SGOT) (test code = 16 U/L 13-40 1051761177) eGFR (test code = mL/min/1.73m2 9372741014) JULEE (test code = JULEE) Association of Glomerular Filtration Rate (GFR) and Staging of Kidney Disease* + --+ --+ ------+| GFR (mL/min/1.73 m2) ?| With Kidney Damage ?| ?Without Kidney Damage+ --------+ --------+ +| ?>90 ?| ?Stage one ?| ? Normal ?+ ---+ ---+ -------+| ?60-89 ?| ?Stage two ?| ? Decreased GFR ? + --+ --+ ------+| ?30-59 ?| ?Stage three ?| ? Stage three ? + --+ --+ ------+| ?15-29 ?| ?Stage four ? | ? Stage four ?+ ---+ ---+ -------+| ?<15 (or dialysis) ? ?| ?Stage five ? | ? Stage five ?+ ---+ ---+ -------+ *Each stage assumes the associated GFR level has been in effect for at least three months. ?Stages 1 to 5, with or without kidney disease, indicate chronic kidney disease. Notes: Determination of stages one and two (with eGFR >59mL/min/1.73 m2) requires estimation of kidney damage for at least three months as defined by structural or functional abnormalities of the kidney, manifested by either:Pathological abnormalities or Markers of kidney damage (including abnormalities in the composition of the blood or urine or abnormalities in imaging tests). Lab Interpretation Abnormal (test code = 47052-3) [facility] [id number] 04:04:59 Test Item Value Reference Range Interpretation Comments PROTIME PATIENT (test See_Comment [Auto mated message] code = 5964-2) The system [employer] generated this result transmitted ref erence range: 10.1 - 1 2.6 Seconds. The re ference range was not u sed to interpret this result as normal/abnor mal. INR (test code = 6301-6) Nor mal INR <1.1; Warfarin Therap eutic range 2.0 to 3. 0 or 2.5 to 3.5, dep ending upon the indica tions. Lab Interpretation (test Normal code = 75164-1) [facility] / [id number] 04:04:59 Test Item Value Reference Range Interpretation Comments PROTIME PATIENT (test See_Comment [Auto mated message] code = 5964-2) The system [employer] generated this result transmitted ref erence range: 10.1 - 1 2.6 Seconds. The re ference range was not u sed to interpret this result as normal/abnor mal. INR (test code = 6301-6) Nor mal INR <1.1; Warfarin Therap eutic range 2.0 to 3. 0 or 2.5 to 3.5, dep ending upon the indica tions. Lab Interpretation (test Normal code = 92824-1) [facility] / [id number] 04:04:59 Test Item Value Reference Range Interpretation Comments PROTIME PATIENT (test See_Comment [Auto mated message] code = 5964-2) The system [employer] generated this result transmitted ref erence range: 10.1 - 1 2.6 Seconds. The re ference range was not u sed to interpret this result as normal/abnor mal. INR (test code = 6301-6) Nor mal INR <1.1; Warfarin Therap eutic range 2.0 to 3. 0 or 2.5 to 3.5, dep ending upon the indica tions. Lab Interpretation (test Normal code = 30883-8) [facility] / [id number] 04:04:59 Test Item Value Reference Range Interpretation Comments PROTIME PATIENT (test See_Comment [Auto mated message] code = 5964-2) The system [employer] generated this result transmitted ref erence range: 10.1 - 1 2.6 Seconds. The re ference range was not u sed to interpret this result as normal/abnor mal. INR (test code = 6301-6) Nor mal INR <1.1; Warfarin Therap eutic range 2.0 to 3. 0 or 2.5 to 3.5, dep ending upon the indica tions. Lab Interpretation (test Normal code = 80739-7) [facility] GLUCOSE (AUTOMATED)2021-10-26 17:36:03 Test Item Value Reference Range Interpretation Comments POCT GLU (test code = 8649559545) 187 mg/dL 70-110 H Lab Interpretation (test code = Abnormal 14326-9) [facility] GLUCOSE (AUTOMATED)2021-10-26 15:20:41 Test Item Value Reference Range Interpretation Comments POCT GLU (test code = 4882298194) 180 mg/dL 70-110 H Lab Interpretation (test code = Abnormal 33491-0) [facility] GLUCOSE (AUTOMATED)2021-10-26 02:11:12 Test Item Value Reference Range Interpretation Comments POCT GLU (test code = 0088877327) 103 mg/dL 70-110 Lab Interpretation (test code = Normal 79044-2) [facility] GLUCOSE (AUTOMATED)2021-10-25 21:39:49 Test Item Value Reference Range Interpretation Comments POCT GLU (test code = 4587812071) 279 mg/dL 70-110 H Lab Interpretation (test code = Abnormal 53024-7) [facility] GLUCOSE (AUTOMATED)2021-10-25 18:10:28 Test Item Value Reference Range Interpretation Comments POCT GLU (test code = 1713231392) 207 mg/dL 70-110 H Lab Interpretation (test code = Abnormal 56090-9) [facility] GLUCOSE (AUTOMATED)2021-10-25 14:19:30 Test Item Value Reference Range Interpretation Comments POCT GLU (test code = 9296651894) 200 mg/dL 70-110 H Lab Interpretation (test code = Abnormal 01780-4) [facility] GLUCOSE (AUTOMATED)2021-10-25 01:27:34 Test Item Value Reference Range Interpretation Comments POCT GLU (test code = 6683367223) 221 mg/dL 70-110 H Lab Interpretation (test code = Abnormal 27854-6) [facility] GLUCOSE (AUTOMATED)2021-10-24 22:47:04 Test Item Value Reference Range Interpretation Comments POCT GLU (test code = 8446249917) 203 mg/dL 70-110 H Lab Interpretation (test code = Abnormal 08329-8) [facility] GLUCOSE (AUTOMATED)2021-10-24 16:49:14 Test Item Value Reference Range Interpretation Comments POCT GLU (test code = 8571963905) 204 mg/dL 70-110 H Lab Interpretation (test code = Abnormal 74488-2) [facility] GLUCOSE (AUTOMATED)2021-10-24 13:18:13 Test Item Value Reference Range Interpretation Comments POCT GLU (test code = 2211800680) 194 mg/dL 70-110 H Lab Interpretation (test code = Abnormal 81764-7) [facility] GLUCOSE (AUTOMATED)2021-10-24 02:01:33 Test Item Value Reference Range Interpretation Comments POCT GLU (test code = 9772143746) 261 mg/dL 70-110 H Lab Interpretation (test code = Abnormal 33787-3) [facility] GLUCOSE (AUTOMATED)2021-10-23 22:59:39 Test Item Value Reference Range Interpretation Comments POCT GLU (test code = 1361261540) 287 mg/dL 70-110 H Lab Interpretation (test code = Abnormal 59270-7) [facility] GLUCOSE (AUTOMATED)2021-10-23 17:05:16 Test Item Value Reference Range Interpretation Comments POCT GLU (test code = 4235268228) 270 mg/dL 70-110 H Lab Interpretation (test code = Abnormal 65208-1) [facility] GLUCOSE (AUTOMATED)2021-10-23 13:38:13 Test Item Value Reference Range Interpretation Comments POCT GLU (test code = 4408020205) 181 mg/dL 70-110 H Lab Interpretation (test code = Abnormal 59504-6) [facility] GLUCOSE (AUTOMATED)2021-10-23 01:10:35 Test Item Value Reference Range Interpretation Comments POCT GLU (test code = 3787936091) 239 mg/dL 70-110 H Lab Interpretation (test code = Abnormal 26934-5) [facility] GLUCOSE (AUTOMATED)2021-10-22 23:36:05 Test Item Value Reference Range Interpretation Comments POCT GLU (test code = 6483402045) 234 mg/dL 70-110 H Lab Interpretation (test code = Abnormal 97053-5) [facility] GLUCOSE (AUTOMATED)2021-10-22 22:23:22 Test Item Value Reference Range Interpretation Comments POCT GLU (test code = 5010938888) 242 mg/dL 70-110 H Lab Interpretation (test code = Abnormal 17494-3) [facility] GLUCOSE (AUTOMATED)2021-10-22 18:04:55 Test Item Value Reference Range Interpretation Comments POCT GLU (test code = 9594159810) 273 mg/dL 70-110 H Lab Interpretation (test code = Abnormal 68610-7) [facility] GLUCOSE (AUTOMATED)2021-10-22 14:25:06 Test Item Value Reference Range Interpretation Comments POCT GLU (test code = 0998959035) 173 mg/dL 70-110 H Lab Interpretation (test code = Abnormal 47383-0) [facility] METABOLIC PANEL (NA, K, CL, CO2, GLUCOSE, BUN, CREATININE, CA)2021-10-22 10:59:17 Test Item Value Reference Range Interpretation Comments NA (test code = 132 mmol/L 135-145 L 8609065019) K (test code = 4.7 mmol/L 3.5-5 0383898893) CL (test code = 107 mmol/L 98-108 1848862082) CO2 TOTAL (test code = 22 mmol/L 23-31 L 9417377763) AGAP (test code = 2-16 0305418344) BUN (test code = 30 mg/dL 7-23 H 2977030336) GLUCOSE (test code = 220 mg/dL 70-110 H 1622503345) CREATININE (test code = 2.73 mg/dL 0.6-1.25 H 9105484733) CALCIUM (test code = 8.0 mg/dL 8.6-10.6 L 7465311603) eGFR (test code = mL/min/1.73m2 5827514977) JULEE (test code = JULEE) Association of Glomerular Filtration Rate (GFR) and Staging of Kidney Disease* + --+ --+ ------+| GFR (mL/min/1.73 m2) ?| With Kidney Damage ?| ?Without Kidney Damage+ --------+ --------+ +| ?>90 ?| ?Stage one ?| ? Normal ?+ ---+ ---+ -------+| ?60-89 ?| ?Stage two ?| ? Decreased GFR ? + --+ --+ ------+| ?30-59 ?| ?Stage three ?| ? Stage three ? + --+ --+ ------+| ?15-29 ?| ?Stage four ? | ? Stage four ?+ ---+ ---+ -------+| ?<15 (or dialysis) ? ?| ?Stage five ? | ? Stage five ?+ ---+ ---+ -------+ *Each stage assumes the associated GFR level has been in effect for at least three months. ?Stages 1 to 5, with or without kidney disease, indicate chronic kidney disease. Notes: Determination of stages one and two (with eGFR >59mL/min/1.73 m2) requires estimation of kidney damage for at least three months as defined by structural or functional abnormalities of the kidney, manifested by either:Pathological abnormalities or Markers of kidney damage (including abnormalities in the composition of the blood or urine or abnormalities in imaging tests). Lab Interpretation Abnormal (test code = 07234-9) [facility] WITHOUT [id number] 10:29:14 Test Item Value Reference Range Interpretation Comments WBC (test code = 6690-2) See_Comment [A utomated message] The system [employer] generated this result transmit escobar reference range : 4.20 - 10.70 10*3/?L. The reference range was not used to interpret this result as normal/abnormal . RBC (test code = 789-8) See_Comment L [Au tomated message] The system [employer] generated this result transmit escobar reference range : 4.26 - 5.52 10* 6/?L. The reference r blade was not used to interpret this result as normal/abnormal . HGB (test code = 718-7) 9.0 g/dL 12.2-16.4 L HCT (test code = 4544-3) 27.8 % 38.4-49.3 L MCH (test code = 785-6) 26.0 pg 26.1-32.7 L MCV (test code = 787-2) 80.3 fL 81.7-95.6 L MCHC (test code = 786-4) 32.4 g/dL 31.2-35 PLT (test code = 777-3) See_Comment H [Au tomated message] The system [employer] generated this result transmit escobar reference range : 150 - 328 10*3/?L. The reference range was not used to interpret this result as normal/abnormal . MPV (test code = 10.3 fL 9.8-13 72790-1) RDW-CV (test code = 19.1 % 12.1-15.4 H 788-0) RDW-SD (test code = 55.6 fL 38.5-51.6 H 60150-8) NRBC x10^3 (test code = See_Comment [Au tomated message] 3435526471) The system [employer] generated this result transmit escobar reference range : 10*3/?L. The reference range was not used to interpret this result as normal/abnormal . NRBC/100 WBC (test code See_Comment [Au tomated message] = 4522512666) The system [employer] generated this result transmit escobar reference range : 0.0 - 10.0 /100 WBC s. The reference r blade was not used to interpret this result as normal/abnormal . IPF % (test code = 4142120425) Lab Interpretation (test Abnormal code = 51521-1) [facility] GLUCOSE (AUTOMATED)2021-10-22 01:12:16 Test Item Value Reference Range Interpretation Comments POCT GLU (test code = 4568158966) 228 mg/dL 70-110 H Lab Interpretation (test code = Abnormal 42025-9) [facility] GLUCOSE (AUTOMATED)2021-10-21 22:01:19 Test Item Value Reference Range Interpretation Comments POCT GLU (test code = 0059112857) 177 mg/dL 70-110 H Lab Interpretation (test code = Abnormal 98386-3) [facility] GLUCOSE (AUTOMATED)2021-10-21 16:52:10 Test Item Value Reference Range Interpretation Comments POCT GLU (test code = 4403954205) 176 mg/dL 70-110 H Lab Interpretation (test code = Abnormal 16203-8) [facility] GLUCOSE (AUTOMATED)2021-10-21 16:52:10 Test Item Value Reference Range Interpretation Comments POCT GLU (test code = 3217029609) 176 mg/dL 70-110 H Lab Interpretation (test code = Abnormal 96354-6) [facility] GLUCOSE (AUTOMATED)2021-10-21 14:47:32 Test Item Value Reference Range Interpretation Comments POCT GLU (test code = 3349758045) 80 mg/dL 70-110 Lab Interpretation (test code = Normal 82479-7) [facility] GLUCOSE (AUTOMATED)2021-10-21 14:47:32 Test Item Value Reference Range Interpretation Comments POCT GLU (test code = 6912030908) 80 mg/dL 70-110 Lab Interpretation (test code = Normal 54060-4) [facility] [id number] 14:25:55 Test Item Value Reference Range Interpretation Comments TSH (test code = See_Comment [Automated message] 8332537030) The system [employer] generated this result transmitted ref erence range: 0.45 - 4 .70 mIU/L. The refe rence range was not u sed to interpret this result as normal/abnor mal. Lab Interpretation (test Normal code = 17854-3) [facility] [id number] 14:25:55 Test Item Value Reference Range Interpretation Comments TSH (test code = See_Comment [Automated message] 3750283084) The system [employer] generated this result transmitted ref erence range: 0.45 - 4 .70 mIU/L. The refe rence range was not u sed to interpret this result as normal/abnor mal. Lab Interpretation (test Normal code = 26076-1) [facility] METABOLIC PANEL (NA, K, CL, CO2, GLUCOSE, BUN, CREATININE, CA)2021-10-21 09:19:45 Test Item Value Reference Range Interpretation Comments NA (test code = 133 mmol/L 135-145 L 5335111575) K (test code = 4.7 mmol/L 3.5-5 5397680427) CL (test code = 108 mmol/L 98-108 1662955647) CO2 TOTAL (test code = 22 mmol/L 23-31 L 9028733738) AGAP (test code = 2-16 6769818829) BUN (test code = 29 mg/dL 7-23 H 0833022127) GLUCOSE (test code = 86 mg/dL 70-110 1154501637) CREATININE (test code = 2.82 mg/dL 0.6-1.25 H 2385946066) CALCIUM (test code = 8.1 mg/dL 8.6-10.6 L 4740178580) eGFR (test code = mL/min/1.73m2 2819043716) JULEE (test code = JULEE) Association of Glomerular Filtration Rate (GFR) and Staging of Kidney Disease* + --+ --+ ------+| GFR (mL/min/1.73 m2) ?| With Kidney Damage ?| ?Without Kidney Damage+ --------+ --------+ +| ?>90 ?| ?Stage one ?| ? Normal ?+ ---+ ---+ -------+| ?60-89 ?| ?Stage two ?| ? Decreased GFR ? + --+ --+ ------+| ?30-59 ?| ?Stage three ?| ? Stage three ? + --+ --+ ------+| ?15-29 ?| ?Stage four ? | ? Stage four ?+ ---+ ---+ -------+| ?<15 (or dialysis) ? ?| ?Stage five ? | ? Stage five ?+ ---+ ---+ -------+ *Each stage assumes the associated GFR level has been in effect for at least three months. ?Stages 1 to 5, with or without kidney disease, indicate chronic kidney disease. Notes: Determination of stages one and two (with eGFR >59mL/min/1.73 m2) requires estimation of kidney damage for at least three months as defined by structural or functional abnormalities of the kidney, manifested by either:Pathological abnormalities or Markers of kidney damage (including abnormalities in the composition of the blood or urine or abnormalities in imaging tests). Lab Interpretation Abnormal (test code = 67607-4) [facility] METABOLIC PANEL (NA, K, CL, CO2, GLUCOSE, BUN, CREATININE, CA)2021-10-21 09:19:45 Test Item Value Reference Range Interpretation Comments NA (test code = 133 mmol/L 135-145 L 2300697343) K (test code = 4.7 mmol/L 3.5-5 3320253226) CL (test code = 108 mmol/L 98-108 6231638985) CO2 TOTAL (test code = 22 mmol/L 23-31 L 4300706066) AGAP (test code = 2-16 5141039757) BUN (test code = 29 mg/dL 7-23 H 0869480036) GLUCOSE (test code = 86 mg/dL 70-110 2698875911) CREATININE (test code = 2.82 mg/dL 0.6-1.25 H 0567158449) CALCIUM (test code = 8.1 mg/dL 8.6-10.6 L 8854738642) eGFR (test code = mL/min/1.73m2 2431983623) JULEE (test code = JULEE) Association of Glomerular Filtration Rate (GFR) and Staging of Kidney Disease* + --+ --+ ------+| GFR (mL/min/1.73 m2) ?| With Kidney Damage ?| ?Without Kidney Damage+ --------+ --------+ +| ?>90 ?| ?Stage one ?| ? Normal ?+ ---+ ---+ -------+| ?60-89 ?| ?Stage two ?| ? Decreased GFR ? + --+ --+ ------+| ?30-59 ?| ?Stage three ?| ? Stage three ? + --+ --+ ------+| ?15-29 ?| ?Stage four ? | ? Stage four ?+ ---+ ---+ -------+| ?<15 (or dialysis) ? ?| ?Stage five ? | ? Stage five ?+ ---+ ---+ -------+ *Each stage assumes the associated GFR level has been in effect for at least three months. ?Stages 1 to 5, with or without kidney disease, indicate chronic kidney disease. Notes: Determination of stages one and two (with eGFR >59mL/min/1.73 m2) requires estimation of kidney damage for at least three months as defined by structural or functional abnormalities of the kidney, manifested by either:Pathological abnormalities or Markers of kidney damage (including abnormalities in the composition of the blood or urine or abnormalities in imaging tests). Lab Interpretation Abnormal (test code = 18677-2) [facility] WITHOUT [id number] 09:00:21 Test Item Value Reference Range Interpretation Comments WBC (test code = 6690-2) See_Comment [A utomated message] The system [employer] generated this result transmit escobar reference range : 4.20 - 10.70 10*3/?L. The reference range was not used to interpret this result as normal/abnormal . RBC (test code = 789-8) See_Comment L [Au tomated message] The system [employer] generated this result transmit escobar reference range : 4.26 - 5.52 10* 6/?L. The reference r blade was not used to interpret this result as normal/abnormal . HGB (test code = 718-7) 8.7 g/dL 12.2-16.4 L HCT (test code = 4544-3) 27.2 % 38.4-49.3 L MCH (test code = 785-6) 26.0 pg 26.1-32.7 L MCV (test code = 787-2) 81.2 fL 81.7-95.6 L MCHC (test code = 786-4) 32.0 g/dL 31.2-35 PLT (test code = 777-3) See_Comment H [Au tomated message] The system [employer] generated this result transmit escobar reference range : 150 - 328 10*3/?L. The reference range was not used to interpret this result as normal/abnormal . MPV (test code = 9.9 fL 9.8-13 63675-7) RDW-CV (test code = 19.6 % 12.1-15.4 H 788-0) RDW-SD (test code = 57.8 fL 38.5-51.6 H 07956-0) NRBC x10^3 (test code = See_Comment [Au tomated message] 0212065895) The system [employer] generated this result transmit escobar reference range : 10*3/?L. The reference range was not used to interpret this result as normal/abnormal . NRBC/100 WBC (test code See_Comment [Au tomated message] = 3083094690) The system [facility] generated this result transmit escobar reference range : 0.0 - 10.0 /100 WBC s. The reference r blade was not used to interpret this result as normal/abnormal . IPF % (test code = 8468847325) Lab Interpretation (test Abnormal code = 92550-5) [facility] WITHOUT [id number] 09:00:21 Test Item Value Reference Range Interpretation Comments WBC (test code = 6690-2) See_Comment [A utomated message] The system [employer] generated this result transmit escobar reference range : 4.20 - 10.70 10*3/?L. The reference range was not used to interpret this result as normal/abnormal . RBC (test code = 789-8) See_Comment L [Au tomated message] The system [employer] generated this result transmit escobar reference range : 4.26 - 5.52 10* 6/?L. The reference r blade was not used to interpret this result as normal/abnormal . HGB (test code = 718-7) 8.7 g/dL 12.2-16.4 L HCT (test code = 4544-3) 27.2 % 38.4-49.3 L MCH (test code = 785-6) 26.0 pg 26.1-32.7 L MCV (test code = 787-2) 81.2 fL 81.7-95.6 L MCHC (test code = 786-4) 32.0 g/dL 31.2-35 PLT (test code = 777-3) See_Comment H [Au tomated message] The system [employer] generated this result transmit escobar reference range : 150 - 328 10*3/?L. The reference range was not used to interpret this result as normal/abnormal . MPV (test code = 9.9 fL 9.8-13 40085-3) RDW-CV (test code = 19.6 % 12.1-15.4 H 788-0) RDW-SD (test code = 57.8 fL 38.5-51.6 H 27451-7) NRBC x10^3 (test code = See_Comment [Au tomated message] 1952695934) The system [employer] generated this result transmit escobar reference range : 10*3/?L. The reference range was not used to interpret this result as normal/abnormal . NRBC/100 WBC (test code See_Comment [Au tomated message] = 8431923140) The system [employer] generated this result transmit escobar reference range : 0.0 - 10.0 /100 WBC s. The reference r blade was not used to interpret this result as normal/abnormal . IPF % (test code = 7625183708) Lab Interpretation (test Abnormal code = 50780-1) [facility] GLUCOSE (AUTOMATED)2021-10-21 02:12:41 Test Item Value Reference Range Interpretation Comments POCT GLU (test code = 1040876526) 172 mg/dL 70-110 H Lab Interpretation (test code = Abnormal 20698-3) [facility] GLUCOSE (AUTOMATED)2021-10-21 02:12:41 Test Item Value Reference Range Interpretation Comments POCT GLU (test code = 3077559346) 172 mg/dL 70-110 H Lab Interpretation (test code = Abnormal 96697-0) [facility] GLUCOSE (AUTOMATED)2021-10-21 01:25:20 Test Item Value Reference Range Interpretation Comments POCT GLU (test code = 8244184691) 173 mg/dL 70-110 H Lab Interpretation (test code = Abnormal 41375-4) [facility] GLUCOSE (AUTOMATED)2021-10-21 01:25:20 Test Item Value Reference Range Interpretation Comments POCT GLU (test code = 6517065195) 173 mg/dL 70-110 H Lab Interpretation (test code = Abnormal 97489-5) [facility] GLUCOSE (AUTOMATED)2021-10-20 22:03:02 Test Item Value Reference Range Interpretation Comments POCT GLU (test code = 1362260472) 93 mg/dL 70-110 Lab Interpretation (test code = Normal 03426-3) [facility] GLUCOSE (AUTOMATED)2021-10-20 22:03:02 Test Item Value Reference Range Interpretation Comments POCT GLU (test code = 2096104791) 93 mg/dL 70-110 Lab Interpretation (test code = Normal 84327-1) [facility] GLUCOSE (AUTOMATED)2021-10-20 17:36:12 Test Item Value Reference Range Interpretation Comments POCT GLU (test code = 1397346569) 109 mg/dL 70-110 Lab Interpretation (test code = Normal 40862-9) [facility] GLUCOSE (AUTOMATED)2021-10-20 17:36:12 Test Item Value Reference Range Interpretation Comments POCT GLU (test code = 7655730497) 109 mg/dL 70-110 Lab Interpretation (test code = Normal 40217-6) [facility] GLUCOSE (AUTOMATED)2021-10-20 13:36:06 Test Item Value Reference Range Interpretation Comments POCT GLU (test code = 8837646585) 89 mg/dL 70-110 Lab Interpretation (test code = Normal 48148-3) [facility] GLUCOSE (AUTOMATED)2021-10-20 13:36:06 Test Item Value Reference Range Interpretation Comments POCT GLU (test code = 6430968972) 89 mg/dL 70-110 Lab Interpretation (test code = Normal 21597-5) [facility] GLUCOSE (AUTOMATED)2021-10-20 12:53:15 Test Item Value Reference Range Interpretation Comments POCT GLU (test code = 3358234119) 177 mg/dL 70-110 H Lab Interpretation (test code = Abnormal 28012-9) [facility] GLUCOSE (AUTOMATED)2021-10-20 12:53:15 Test Item Value Reference Range Interpretation Comments POCT GLU (test code = 3995954502) 177 mg/dL 70-110 H Lab Interpretation (test code = Abnormal 02792-9) [facility] 08[facility]59:20 Test Item Value Reference Range Interpretation Comments Fibrinogen (test code = 3417633888) 510 mg/dL 167-453 H Lab Interpretation (test code = Abnormal 91531-0) [facility] Test Item Value Reference Range Interpretation Comments Fibrinogen (test code = 0368645840) 510 mg/dL 167-453 H Lab Interpretation (test code = Abnormal 96600-4) [facility] WITH [id number] 08:55:18 Test Item Value Reference Range Interpretation Comments WBC (test code = See_Comment [Automated 6690-2) message] The sy stem which generated this result transmitted reference range : 4.20 - 10.70 10*3/?L. The reference range was not used to interpret this result as normal/abnormal . RBC (test code = See_Comment L [Automated 789-8) message] The sy stem which generated this result transmitted reference range : 4.26 - 5.52 10*6/?L. The reference range was not used to interpret this result as normal/abnormal . HGB (test code = 8.4 g/dL 12.2-16.4 L 718-7) HCT (test code = 26.0 % 38.4-49.3 L 4544-3) MCV (test code = 80.5 fL 81.7-95.6 L 787-2) MCH (test code = 26.0 pg 26.1-32.7 L 785-6) MCHC (test code = 32.3 g/dL 31.2-35 786-4) RDW-SD (test code = 57.1 fL 38.5-51.6 H 44407-3) RDW-CV (test code = 19.6 % 12.1-15.4 H 788-0) PLT (test code = See_Comment H [Automated 777-3) message] The sy stem which generated this result transmitted reference range : 150 - 328 10*3/ ?L. The reference r blade was not used to interpret this result as normal/abnormal . MPV (test code = 10.2 fL 9.8-13 49042-9) NRBC/100 WBC (test See_Comment [Automat ed code = 6441684853) message] The system which generated this result transmitted reference range : 0.0 - 10.0 /100 WBCs. The refer ence range was not u sed to interpret th is result as normal/abnormal . NRBC x10^3 (test code See_Comment [Auto mated = 0640611860) message] The s ystem which generated this result transmitted reference range : 10*3/?L. The reference range was not used to interpret this result as normal/abnormal . GRAN MAT (NEUT) % 73.0 % (test code = 770-8) IMM GRAN % (test code 0.80 % = 1583268839) LYMPH % (test code = 11.1 % 736-9) MONO % (test code = 9.5 % 5905-5) EOS % (test code = 4.5 % 713-8) BASO % (test code = 1.1 % 706-2) GRAN MAT x10^3(ANC) 5.35 10*3/uL 1.99-6.95 (test code = 8257118717) IMM GRAN x10^3 (test 0.06 10*3/uL 0-0.06 code = 2688760665) LYMPH x10^3 (test code 0.81 10*3/uL 1.09-3.23 L = 731-0) MONO x10^3 (test code 0.70 10*3/uL 0.36-1.02 = 742-7) EOS x10^3 (test code = 0.33 10*3/uL 0.06-0.53 711-2) BASO x10^3 (test code 0.08 10*3/uL 0.01-0.09 = 704-7) Lab Interpretation Abnormal (test code = 14247-0) [facility] WITH [id number] 08:55:18 Test Item Value Reference Range Interpretation Comments WBC (test code = See_Comment [Automated 6690-2) message] The sy stem which generated this result transmitted reference range : 4.20 - 10.70 10*3/?L. The reference range was not used to interpret this result as normal/abnormal . RBC (test code = See_Comment L [Automated 789-8) message] The sy stem which generated this result transmitted reference range : 4.26 - 5.52 10*6/?L. The reference range was not used to interpret this result as normal/abnormal . HGB (test code = 8.4 g/dL 12.2-16.4 L 718-7) HCT (test code = 26.0 % 38.4-49.3 L 4544-3) MCV (test code = 80.5 fL 81.7-95.6 L 787-2) MCH (test code = 26.0 pg 26.1-32.7 L 785-6) MCHC (test code = 32.3 g/dL 31.2-35 786-4) RDW-SD (test code = 57.1 fL 38.5-51.6 H 97073-3) RDW-CV (test code = 19.6 % 12.1-15.4 H 788-0) PLT (test code = See_Comment H [Automated 777-3) message] The sy stem which generated this result transmitted reference range : 150 - 328 10*3/ ?L. The reference r blade was not used to interpret this result as normal/abnormal . MPV (test code = 10.2 fL 9.8-13 84810-5) NRBC/100 WBC (test See_Comment [Automat ed code = 7665225747) message] The system which generated this result transmitted reference range : 0.0 - 10.0 /100 WBCs. The refer ence range was not u sed to interpret th is result as normal/abnormal . NRBC x10^3 (test code See_Comment [Auto mated = 4016176602) message] The s ystem which generated this result transmitted reference range : 10*3/?L. The reference range was not used to interpret this result as normal/abnormal . GRAN MAT (NEUT) % 73.0 % (test code = 770-8) IMM GRAN % (test code 0.80 % = 9211066853) LYMPH % (test code = 11.1 % 736-9) MONO % (test code = 9.5 % 5905-5) EOS % (test code = 4.5 % 713-8) BASO % (test code = 1.1 % 706-2) GRAN MAT x10^3(ANC) 5.35 10*3/uL 1.99-6.95 (test code = 5733949685) IMM GRAN x10^3 (test 0.06 10*3/uL 0-0.06 code = 4655192206) LYMPH x10^3 (test code 0.81 10*3/uL 1.09-3.23 L = 731-0) MONO x10^3 (test code 0.70 10*3/uL 0.36-1.02 = 742-7) EOS x10^3 (test code = 0.33 10*3/uL 0.06-0.53 711-2) BASO x10^3 (test code 0.08 10*3/uL 0.01-0.09 = 704-7) Lab Interpretation Abnormal (test code = 68009-6) [facility] GLUCOSE (AUTOMATED)2021-10-20 01:12:56 Test Item Value Reference Range Interpretation Comments POCT GLU (test code = 4008557752) 181 mg/dL 70-110 H Lab Interpretation (test code = Abnormal 65679-1) [facility] 01:12:56 Test Item Value Reference Range Interpretation Comments POCT GLU (test code = 7150357299) 181 mg/dL 70-110 H Lab Interpretation (test code = Abnormal 86408-5) [facility] [id number] 00:08:29 Test Item Value Reference Range Interpretation Comments APTT Patient (test See_Comment [Automat ed code = 3173-2) message] The system which generated this result transmitted reference range : 23 - 38 Seconds . The reference range was not used to interpr et this result as normal/abnormal . JULEE (test code = JULEE) The [facility] patient population mean normal value for aPTT is 30 seconds. Lab Interpretation Normal (test code = 99409-5) [facility] [id number] 00:08:29 Test Item Value Reference Range Interpretation Comments APTT Patient (test See_Comment [Automat ed code = 3173-2) message] The system which generated this result transmitted reference range : 23 - 38 Seconds . The reference range was not used to interpr et this result as normal/abnormal . JULEE (test code = JULEE) The [facility] patient population mean normal value for aPTT is 30 seconds. Lab Interpretation Normal (test code = 82325-8) [facility] CampusProth[facility] Time / [id number] 00:06:32 Test Item Value Reference Range Interpretation Comments PROTIME PATIENT (test See_Comment [Auto mated message] code = 5964-2) The system wh ich generated this result transmitted ref erence range: 12.0 - 1 4.7 Seconds. The re ference range was not u sed to interpret this result as normal/abnor mal. INR (test code = 6301-6) Nor mal INR <1.1; Warfarin Therap eutic range 2.0 to 3. 0 or 2.5 to 3.5, dep ending upon the indica tions. Lab Interpretation (test Normal code = 51985-3) [facility] / [id number] 00:06:32 Test Item Value Reference Range Interpretation Comments PROTIME PATIENT (test See_Comment [Auto mated message] code = 5964-2) The system [employer] generated this result transmitted ref erence range: 12.0 - 1 4.7 Seconds. The re ference range was not u sed to interpret this result as normal/abnor mal. INR (test code = 6301-6) Nor mal INR <1.1; Warfarin Therap eutic range 2.0 to 3. 0 or 2.5 to 3.5, dep ending upon the indica tions. Lab Interpretation (test Normal code = 01684-0) [facility] Packed RBC (in units), 1 Units 2021-10-19 19:42:15 Test Item Value Reference Range Interpretation Comments Cross Match Result Compatible (test code = 4409) ISBT Blood Type Code (test code = 524368) Unit Blood Type (test B Pos code = 4410) Unit Number (test [id number] code = 4411) Blood Expiration Date & Time (test code = 207534) Status Information Issued (test code = 4412) Product Red Blood Cells Identification (test code = 4413) Product Code (test [id number] Performed at [facility] code = 4414) Laboratory Services - [facility] Blood [address] [place] [address] Free: [phone] A No. [id number] [facility] Packed RBC (in units), 1 Units 2021-10-19 19:42:15 Test Item Value Reference Range Interpretation Comments Cross Match Result Compatible (test code = 4409) ISBT Blood Type Code (test code = 070853) Unit Blood Type (test B Pos code = 4410) Unit Number (test [id number] code = 4411) Blood Expiration Date & Time (test code = 711086) Status Information Issued (test code = 4412) Product Red Blood Cells Identification (test code = 4413) Product Code (test P7541Z02 Performed at [facility] code = 4414) Laboratory Services - [facility] Blood [address] [place], [place] [address]Toll Free: [phone] A No. [id number] [facility] and Screen - ONCE [id number] 19:04:35 Test Item Value Reference Range Interpretation Comments ABO & RH (test code B Positive Performe d at [facility] = 20) Laboratory [facility] Blood Bank[address] [place], [place] [address]Toll Free: [phone] A No. [id number] IAT (test code = Negative Performed a t [facility] 1185) Laboratory [facility] Blood [address] [place], [place] [address]Toll Free: [phone] A No. [id number] [facility] and Screen - ONCE [id number] 19:04:35 Test Item Value Reference Range Interpretation Comments ABO & RH (test code B Positive Performe d at [facility] = 20) Laboratory [facility] Blood [address] [place], [place] [address]Toll Free: [phone] A No. [id number] IAT (test code = Negative Performed a t [facility] 1185) Laboratory [facility] Blood [address] [place] [address]Qsji Free: [phone] A No. [id number] [facility] GLUCOSE (AUTOMATED)2021-10-19 17:04:01 Test Item Value Reference Range Interpretation Comments POCT GLU (test code = 9747318645) 127 mg/dL 70-110 H Lab Interpretation (test code = Abnormal 98743-4) [facility] GLUCOSE (AUTOMATED)2021-10-19 17:04:01 Test Item Value Reference Range Interpretation Comments POCT GLU (test code = 8561136695) 127 mg/dL 70-110 H Lab Interpretation (test code = Abnormal 18986-6) [facility] GLUCOSE (AUTOMATED)2021-10-19 13:14:22 Test Item Value Reference Range Interpretation Comments POCT GLU (test code = 7831902614) 98 mg/dL 70-110 Lab Interpretation (test code = Normal 32058-7) [facility] GLUCOSE (AUTOMATED)2021-10-19 13:14:22 Test Item Value Reference Range Interpretation Comments POCT GLU (test code = 4897203805) 98 mg/dL 70-110 Lab Interpretation (test code = Normal 24643-0) [facility] GLUCOSE (AUTOMATED)2021-10-19 13:08:04 Test Item Value Reference Range Interpretation Comments POCT GLU (test code = 4677346802) 189 mg/dL 70-110 H Lab Interpretation (test code = Abnormal 42439-9) [facility] GLUCOSE (AUTOMATED)2021-10-19 13:08:04 Test Item Value Reference Range Interpretation Comments POCT GLU (test code = 2444031543) 189 mg/dL 70-110 H Lab Interpretation (test code = Abnormal 51452-9) [facility] GLUCOSE (AUTOMATED)2021-10-19 01:59:21 Test Item Value Reference Range Interpretation Comments POCT GLU (test code = 2659514207) 206 mg/dL 70-110 H Lab Interpretation (test code = Abnormal 11592-0) [facility] GLUCOSE (AUTOMATED)2021-10-19 01:59:21 Test Item Value Reference Range Interpretation Comments POCT GLU (test code = 3210486035) 206 mg/dL 70-110 H Lab Interpretation (test code = Abnormal 50835-5) [facility] GLUCOSE (AUTOMATED)2021-10-18 21:57:56 Test Item Value Reference Range Interpretation Comments POCT GLU (test code = 4511020416) 206 mg/dL 70-110 H Lab Interpretation (test code = Abnormal 52697-8) [facility] GLUCOSE (AUTOMATED)2021-10-18 21:57:56 Test Item Value Reference Range Interpretation Comments POCT GLU (test code = 6680573927) 206 mg/dL 70-110 H Lab Interpretation (test code = Abnormal 41253-9) [facility] [id number] 17:28:39 Test Item Value Reference Range Interpretation Comments NT-proBNP (test code 1720 pg/mL See_Comment H [Autom ated = 8802339462) message] The system which generated this result transmitted reference range : <=125. The reference range was not used to interpret this result as normal/abnormal . JULEE (test code = JULEE) Biotin has been reported to cause a negative bias, interpret results relative to patient's use of biotin. Lab Interpretation Abnormal (test code = 81328-0) [facility] [id number] 17:28:39 Test Item Value Reference Range Interpretation Comments NT-proBNP (test code 1720 pg/mL See_Comment H [Autom ated = 2888987512) message] The system which generated this result transmitted reference range : <=125. The reference range was not used to interpret this result as normal/abnormal . JULEE (test code = JULEE) Biotin has been reported to cause a negative bias, interpret results relative to patient's use of biotin. Lab Interpretation Abnormal (test code = 17392-8) [facility]20[facility] 17:21:01 Test Item Value Reference Range Interpretation Comments MAGNESIUM (test code = 5776304204) 1.7 mg/dL 1.7-2.4 Lab Interpretation (test code = Normal 61032-1) [facility] 17:21:01 Test Item Value Reference Range Interpretation Comments MAGNESIUM (test code = 4079334876) 1.7 mg/dL 1.7-2.4 Lab Interpretation (test code = Normal 31448-9) [facility] METABOLIC PANEL (05872)2021-10-18 17:20:41 Test Item Value Reference Range Interpretation Comments NA (test code = 135 mmol/L 135-145 9302791370) K (test code = 4.8 mmol/L 3.5-5 5913740366) CL (test code = 107 mmol/L 98-108 4716780040) CO2 TOTAL (test code = 23 mmol/L 23-31 8949717672) AGAP (test code = 2-16 8926701555) BUN (test code = 29 mg/dL 7-23 H 9489151037) GLUCOSE (test code = 269 mg/dL 70-110 H 3304995413) CREATININE (test code = 3.00 mg/dL 0.6-1.25 H 9347755093) TOTAL BILI (test code = 0.2 mg/dL 0.1-1.5 8221616983) CALCIUM (test code = 8.0 mg/dL 8.6-10.6 L 3464507604) T PROTEIN (test code = 5.9 g/dL 6.3-8.2 L 2270238729) ALBUMIN (test code = 3.0 g/dL 3.5-5 L 7528883581) ALK PHOS (test code = 60 U/L 34-122 8250947731) ALTv (test code = 14 U/L 5-50 1742-6) AST(SGOT) (test code = 19 U/L 13-40 4190823605) eGFR (test code = mL/min/1.73m2 0875278099) JULEE (test code = JULEE) Association of Glomerular Filtration Rate (GFR) and Staging of Kidney Disease* + --+ --+ ------+| GFR (mL/min/1.73 m2) ?| With Kidney Damage ?| ?Without Kidney Damage+ --------+ --------+ +| ?>90 ?| ?Stage one ?| ? Normal ?+ ---+ ---+ -------+| ?60-89 ?| ?Stage two ?| ? Decreased GFR ? + --+ --+ ------+| ?30-59 ?| ?Stage three ?| ? Stage three ? + --+ --+ ------+| ?15-29 ?| ?Stage four ? | ? Stage four ?+ ---+ ---+ -------+| ?<15 (or dialysis) ? ?| ?Stage five ? | ? Stage five ?+ ---+ ---+ -------+ *Each stage assumes the associated GFR level has been in effect for at least three months. ?Stages 1 to 5, with or without kidney disease, indicate chronic kidney disease. Notes: Determination of stages one and two (with eGFR >59mL/min/1.73 m2) requires estimation of kidney damage for at least three months as defined by structural or functional abnormalities of the kidney, manifested by either:Pathological abnormalities or Markers of kidney damage (including abnormalities in the composition of the blood or urine or abnormalities in imaging tests). Lab Interpretation Abnormal (test code = 39878-9) [facility]. METABOLIC PANEL (94478)2021-10-18 17:20:41 Test Item Value Reference Range Interpretation Comments NA (test code = 135 mmol/L 135-145 4015459501) K (test code = 4.8 mmol/L 3.5-5 8516813980) CL (test code = 107 mmol/L 98-108 7718683269) CO2 TOTAL (test code = 23 mmol/L 23-31 4103652530) AGAP (test code = 2-16 4090407245) BUN (test code = 29 mg/dL 7-23 H 8290818339) GLUCOSE (test code = 269 mg/dL 70-110 H 2334933024) CREATININE (test code = 3.00 mg/dL 0.6-1.25 H 2950979520) TOTAL BILI (test code = 0.2 mg/dL 0.1-1.5 5688150035) CALCIUM (test code = 8.0 mg/dL 8.6-10.6 L 6085528510) T PROTEIN (test code = 5.9 g/dL 6.3-8.2 L 3282490357) ALBUMIN (test code = 3.0 g/dL 3.5-5 L 4174389345) ALK PHOS (test code = 60 U/L 34-122 0211018066) ALTv (test code = 14 U/L 5-50 1742-6) AST(SGOT) (test code = 19 U/L 13-40 2468482051) eGFR (test code = mL/min/1.73m2 5747227763) JULEE (test code = JULEE) Association of Glomerular Filtration Rate (GFR) and Staging of Kidney Disease* + --+ --+ ------+| GFR (mL/min/1.73 m2) ?| With Kidney Damage ?| ?Without Kidney Damage+ --------+ --------+ +| ?>90 ?| ?Stage one ?| ? Normal ?+ ---+ ---+ -------+| ?60-89 ?| ?Stage two ?| ? Decreased GFR ? + --+ --+ ------+| ?30-59 ?| ?Stage three ?| ? Stage three ? + --+ --+ ------+| ?15-29 ?| ?Stage four ? | ? Stage four ?+ ---+ ---+ -------+| ?<15 (or dialysis) ? ?| ?Stage five ? | ? Stage five ?+ ---+ ---+ -------+ *Each stage assumes the associated GFR level has been in effect for at least three months. ?Stages 1 to 5, with or without kidney disease, indicate chronic kidney disease. Notes: Determination of stages one and two (with eGFR >59mL/min/1.73 m2) requires estimation of kidney damage for at least three months as defined by structural or functional abnormalities of the kidney, manifested by either:Pathological abnormalities or Markers of kidney damage (including abnormalities in the composition of the blood or urine or abnormalities in imaging tests). Lab Interpretation Abnormal (test code = 82605-7) [facility] 17:20:20 Test Item Value Reference Range Interpretation Comments PHOSPHORUS (test code = 2458946860) 3.1 mg/dL 2.5-5 Lab Interpretation (test code = Normal 86933-4) [facility] 17:20:20 Test Item Value Reference Range Interpretation Comments PHOSPHORUS (test code = 1791369364) 3.1 mg/dL 2.5-5 Lab Interpretation (test code = Normal 80616-6) [facility] GLUCOSE (AUTOMATED)2021-10-18 17:12:51 Test Item Value Reference Range Interpretation Comments POCT GLU (test code = 7326188525) 302 mg/dL 70-110 H Lab Interpretation (test code = Abnormal 73481-7) [facility] GLUCOSE (AUTOMATED)2021-10-18 17:12:51 Test Item Value Reference Range Interpretation Comments POCT GLU (test code = 1384152293) 302 mg/dL 70-110 H Lab Interpretation (test code = Abnormal 77310-6) [facility] GLUCOSE (AUTOMATED)2021-10-18 13:36:39 Test Item Value Reference Range Interpretation Comments POCT GLU (test code = 1561016588) 130 mg/dL 70-110 H Lab Interpretation (test code = Abnormal 95157-8) [facility] GLUCOSE (AUTOMATED)2021-10-18 13:36:39 Test Item Value Reference Range Interpretation Comments POCT GLU (test code = 3783705328) 130 mg/dL 70-110 H Lab Interpretation (test code = Abnormal 27302-9) [facility] GLUCOSE (AUTOMATED)2021-10-18 01:20:24 Test Item Value Reference Range Interpretation Comments POCT GLU (test code = 9541996219) 105 mg/dL 70-110 Lab Interpretation (test code = Normal 25157-0) [facility]21-10-18 01:20:24 Test Item Value Reference Range Interpretation Comments POCT GLU (test code = 4481296698) 105 mg/dL 70-110 Lab Interpretation (test code = Normal 03276-8) [facility] GLUCOSE (AUTOMATED)2021-10-17 22:12:15 Test Item Value Reference Range Interpretation Comments POCT GLU (test code = 5924540988) 138 mg/dL 70-110 H Lab Interpretation (test code = Abnormal 75215-8) [facility] GLUCOSE (AUTOMATED)2021-10-17 22:12:15 Test Item Value Reference Range Interpretation Comments POCT GLU (test code = 7604487448) 138 mg/dL 70-110 H Lab Interpretation (test code = Abnormal 16000-6) [facility] GLUCOSE (AUTOMATED)2021-10-17 16:34:47 Test Item Value Reference Range Interpretation Comments POCT GLU (test code = 3926556678) 218 mg/dL 70-110 H Lab Interpretation (test code = Abnormal 21468-3) [facility] GLUCOSE (AUTOMATED)2021-10-17 16:34:47 Test Item Value Reference Range Interpretation Comments POCT GLU (test code = 1641583605) 218 mg/dL 70-110 H Lab Interpretation (test code = Abnormal 53828-2) [facility] GLUCOSE (AUTOMATED)2021-10-17 12:17:51 Test Item Value Reference Range Interpretation Comments POCT GLU (test code = 3867601619) 166 mg/dL 70-110 H Lab Interpretation (test code = Abnormal 94608-0) [facility]21-[facility]-17 12:17:51 Test Item Value Reference Range Interpretation Comments POCT GLU (test code = 7029699388) 166 mg/dL 70-110 H Lab Interpretation (test code = Abnormal 83297-9) [facility] GLUCOSE (AUTOMATED)2021-10-17 01:35:03 Test Item Value Reference Range Interpretation Comments POCT GLU (test code = 9664831901) 143 mg/dL 70-110 H Lab Interpretation (test code = Abnormal 86825-5) [facility]21-10-17 01:35:03 Test Item Value Reference Range Interpretation Comments POCT GLU (test code = 2065647330) 143 mg/dL 70-110 H Lab Interpretation (test code = Abnormal 69831-1) [facility] GLUCOSE (AUTOMATED)2021-10-16 21:46:38 Test Item Value Reference Range Interpretation Comments POCT GLU (test code = 9151722616) 133 mg/dL 70-110 H Lab Interpretation (test code = Abnormal 93323-0) [facility] GLUCOSE (AUTOMATED)2021-10-16 21:46:38 Test Item Value Reference Range Interpretation Comments POCT GLU (test code = 6944743604) 133 mg/dL 70-110 H Lab Interpretation (test code = Abnormal 50275-4) [facility] GLUCOSE (AUTOMATED)2021-10-16 20:14:10 Test Item Value Reference Range Interpretation Comments POCT GLU (test code = 3266522623) 210 mg/dL 70-110 H Lab Interpretation (test code = Abnormal 13965-8) [facility]16 20:14:10 Test Item Value Reference Range Interpretation Comments POCT GLU (test code = 2243368173) 210 mg/dL 70-110 H Lab Interpretation (test code = Abnormal 01668-9) [facility] GLUCOSE (AUTOMATED)2021-10-16 12:30:48 Test Item Value Reference Range Interpretation Comments POCT GLU (test code = 5879482001) 322 mg/dL 70-110 H Lab Interpretation (test code = Abnormal 40482-8) [facility] (AUTOMATED)2021-10-16 12:30:48 Test Item Value Reference Range Interpretation Comments POCT GLU (test code = 2116627962) 322 mg/dL 70-110 H Lab Interpretation (test code = Abnormal 43131-8) [facility] 01:22:10 Test Item Value Reference Range Interpretation Comments POCT GLU (test code = 2826464885) 267 mg/dL 70-110 H Lab Interpretation (test code = Abnormal 65902-3) [facility] GLUCOSE (AUTOMATED)2021-10-16 01:22:10 Test Item Value Reference Range Interpretation Comments POCT GLU (test code = 1417831871) 267 mg/dL 70-110 H Lab Interpretation (test code = Abnormal 96940-5) [facility] GLUCOSE (AUTOMATED)2021-10-15 21:32:13 Test Item Value Reference Range Interpretation Comments POCT GLU (test code = 3477264472) 332 mg/dL 70-110 H Lab Interpretation (test code = Abnormal 99325-3) [facility] GLUCOSE (AUTOMATED)2021-10-15 21:32:13 Test Item Value Reference Range Interpretation Comments POCT GLU (test code = 4102477068) 332 mg/dL 70-110 H Lab Interpretation (test code = Abnormal 68823-5) [facility] GLUCOSE (AUTOMATED)2021-10-15 16:46:46 Test Item Value Reference Range Interpretation Comments POCT GLU (test code = 3410687577) 202 mg/dL 70-110 H Lab Interpretation (test code = Abnormal 38550-9) [facility] GLUCOSE (AUTOMATED)2021-10-15 16:46:46 Test Item Value Reference Range Interpretation Comments POCT GLU (test code = 7736158759) 202 mg/dL 70-110 H Lab Interpretation (test code = Abnormal 60874-4) [facility] GLUCOSE (AUTOMATED)2021-10-15 16:46:41 Test Item Value Reference Range Interpretation Comments POCT GLU (test code = 6964467208) 231 mg/dL 70-110 H Lab Interpretation (test code = Abnormal 29219-6) [facility] GLUCOSE (AUTOMATED)2021-10-15 16:46:41 Test Item Value Reference Range Interpretation Comments POCT GLU (test code = 7567535979) 231 mg/dL 70-110 H Lab Interpretation (test code = Abnormal 70160-0) [facility] GLUCOSE (AUTOMATED)2021-10-15 12:45:15 Test Item Value Reference Range Interpretation Comments POCT GLU (test code = 0309819511) 93 mg/dL 70-110 Lab Interpretation (test code = Normal 06833-2) [facility] GLUCOSE (AUTOMATED)2021-10-15 12:45:15 Test Item Value Reference Range Interpretation Comments POCT GLU (test code = 3354903665) 93 mg/dL 70-110 Lab Interpretation (test code = Normal 65657-7) [facility] GLUCOSE (AUTOMATED)2021-10-14 22:00:00 Test Item Value Reference Range Interpretation Comments POCT GLU (test code = 1658315163) 277 mg/dL 70-110 H Lab Interpretation (test code = Abnormal 24910-2) [facility] GLUCOSE (AUTOMATED)2021-10-14 22:00:00 Test Item Value Reference Range Interpretation Comments POCT GLU (test code = 2326231006) 277 mg/dL 70-110 H Lab Interpretation (test code = Abnormal 90874-2) [facility] Packed RBC (in units), 1 Units 2021-10-14 19:47:59 Test Item Value Reference Range Interpretation Comments Cross Match Result Compatible (test code = 4409) ISBT Blood Type Code (test code = 072305) Unit Blood Type (test B Pos code = 4410) Unit Number (test [id number] code = 4411) Blood Expiration Date & Time (test code = 144712) Status Information Issued (test code = 4412) Product Red Blood Cells Identification (test code = 4413) Product Code (test [id number] Performed at [facility] code = 4414) Laboratory Services [facility] Blood [address] [place] [address] Free: [phone] A No. [id number] [facility] Packed RBC (in units), 1 Units 2021-10-14 19:47:59 Test Item Value Reference Range Interpretation Comments Cross Match Result Compatible (test code = 4409) ISBT Blood Type Code (test code = 347686) Unit Blood Type (test B Pos code = 4410) Unit Number (test [id number] code = 4411) Blood Expiration Date & Time (test code = 702626) Status Information Issued (test code = 4412) Product Red Blood Cells Identification (test code = 4413) Product Code (test [id number] Performed at [facility] code = 4414) Laboratory Services [facility] Blood [address] [place], [place] [address]Toll Free: [phone] A No. [id number] [facility] GLUCOSE (AUTOMATED)2021-10-14 17:18:30 Test Item Value Reference Range Interpretation Comments POCT GLU (test code = 6194455927) 219 mg/dL 70-110 H Lab Interpretation (test code = Abnormal 40709-7) [facility] GLUCOSE (AUTOMATED)2021-10-14 17:18:30 Test Item Value Reference Range Interpretation Comments POCT GLU (test code = 1535913368) 219 mg/dL 70-110 H Lab Interpretation (test code = Abnormal 01038-6) [facility] - ONCE [id number] 16:38:26 Test Item Value Reference Range Interpretation Comments ABO & RH (test code B Positive Performe d at [facility] = 20) Laboratory [facility] Blood Bank[address] [place], [place] [address]Toll Free: [phone] A No. [id number] IAT (test code = Negative Performed a t [facility] 1185) Laboratory [facility] Blood Bank[address] [place], [place] [address]Toll Free: [phone] A No. [id number] [facility] and Screen - ONCE [id number] 16:38:26 Test Item Value Reference Range Interpretation Comments ABO & RH (test code B Positive Performe d at [facility] = 20) Laboratory [facility] Blood [address] [place], [place] [address]Toll Free: [phone] A No. [id number] IAT (test code = Negative Performed a t [facility] 1185) Laboratory [facility] Blood [address] [place], [place] [address]Toll Free: [phone] A No. [id number] [facility] GLUCOSE (AUTOMATED)2021-10-14 12:49:04 Test Item Value Reference Range Interpretation Comments POCT GLU (test code = 6369129388) 185 mg/dL 70-110 H Lab Interpretation (test code = Abnormal 32327-5) [facility] GLUCOSE (AUTOMATED)2021-10-14 12:49:04 Test Item Value Reference Range Interpretation Comments POCT GLU (test code = 0383746449) 185 mg/dL 70-110 H Lab Interpretation (test code = Abnormal 86710-5) [facility] GLUCOSE (AUTOMATED)2021-10-14 01:47:21 Test Item Value Reference Range Interpretation Comments POCT GLU (test code = 7611213979) 236 mg/dL 70-110 H Lab Interpretation (test code = Abnormal 13021-3) [facility] 01:47:21 Test Item Value Reference Range Interpretation Comments POCT GLU (test code = 1748455955) 236 mg/dL 70-110 H Lab Interpretation (test code = Abnormal 22350-5) [facility] GLUCOSE (AUTOMATED)2021-10-13 22:48:50 Test Item Value Reference Range Interpretation Comments POCT GLU (test code = 1972043137) 313 mg/dL 70-110 H Lab Interpretation (test code = Abnormal 53019-5) [facility] GLUCOSE (AUTOMATED)2021-10-13 22:48:50 Test Item Value Reference Range Interpretation Comments POCT GLU (test code = 2672625509) 313 mg/dL 70-110 H Lab Interpretation (test code = Abnormal 79826-9) [facility] GLUCOSE (AUTOMATED)2021-10-13 22:16:14 Test Item Value Reference Range Interpretation Comments POCT GLU (test code = 2028500844) 265 mg/dL 70-110 H Lab Interpretation (test code = Abnormal 71325-3) [facility] GLUCOSE (AUTOMATED)2021-10-13 22:16:14 Test Item Value Reference Range Interpretation Comments POCT GLU (test code = 9463944547) 265 mg/dL 70-110 H Lab Interpretation (test code = Abnormal 29418-8) [facility] 17:08:37 Test Item Value Reference Range Interpretation Comments POCT GLU (test code = 8170681884) 85 mg/dL 70-110 Lab Interpretation (test code = Normal 97790-6) [facility] GLUCOSE (AUTOMATED)2021-10-13 17:08:37 Test Item Value Reference Range Interpretation Comments POCT GLU (test code = 7060136772) 85 mg/dL 70-110 Lab Interpretation (test code = Normal 51523-8) [facility] GLUCOSE (AUTOMATED)2021-10-13 13:54:53 Test Item Value Reference Range Interpretation Comments POCT GLU (test code = 7093081583) 126 mg/dL 70-110 H Lab Interpretation (test code = Abnormal 13982-6) [facility] GLUCOSE (AUTOMATED)2021-10-13 13:54:53 Test Item Value Reference Range Interpretation Comments POCT GLU (test code = 4213299354) 126 mg/dL 70-110 H Lab Interpretation (test code = Abnormal 74127-8) [facility] GLUCOSE (AUTOMATED)2021-10-13 02:32:56 Test Item Value Reference Range Interpretation Comments POCT GLU (test code = 1308530306) 93 mg/dL 70-110 Lab Interpretation (test code = Normal 04435-5) [facility] GLUCOSE (AUTOMATED)2021-10-13 02:32:56 Test Item Value Reference Range Interpretation Comments POCT GLU (test code = 6539475923) 93 mg/dL 70-110 Lab Interpretation (test code = Normal 70364-4) [facility] GLUCOSE (AUTOMATED)2021-10-12 22:12:00 Test Item Value Reference Range Interpretation Comments POCT GLU (test code = 2415889972) 225 mg/dL 70-110 H Lab Interpretation (test code = Abnormal 96174-1) [facility] GLUCOSE (AUTOMATED)2021-10-12 22:12:00 Test Item Value Reference Range Interpretation Comments POCT GLU (test code = 6885829285) 225 mg/dL 70-110 H Lab Interpretation (test code = Abnormal 39477-2) [facility] GLUCOSE (AUTOMATED)2021-10-12 17:02:18 Test Item Value Reference Range Interpretation Comments POCT GLU (test code = 9015980319) 305 mg/dL 70-110 H Lab Interpretation (test code = Abnormal 29861-5) [facility] GLUCOSE (AUTOMATED)2021-10-12 17:02:18 Test Item Value Reference Range Interpretation Comments POCT GLU (test code = 5299099743) 305 mg/dL 70-110 H Lab Interpretation (test code = Abnormal 51927-6) [facility] GLUCOSE (AUTOMATED)2021-10-12 13:05:09 Test Item Value Reference Range Interpretation Comments POCT GLU (test code = 1526239381) 287 mg/dL 70-110 H Lab Interpretation (test code = Abnormal 51818-8) [facility] GLUCOSE (AUTOMATED)2021-10-12 13:05:09 Test Item Value Reference Range Interpretation Comments POCT GLU (test code = 2145998783) 251 mg/dL 70-110 H Lab Interpretation (test code = Abnormal 24509-9) [facility] GLUCOSE (AUTOMATED)2021-10-12 13:05:09 Test Item Value Reference Range Interpretation Comments POCT GLU (test code = 1687667272) 287 mg/dL 70-110 H Lab Interpretation (test code = Abnormal 16721-6) [facility] GLUCOSE (AUTOMATED)2021-10-12 13:05:09 Test Item Value Reference Range Interpretation Comments POCT GLU (test code = 5695668891) 251 mg/dL 70-110 H Lab Interpretation (test code = Abnormal 17308-0) [facility] GLUCOSE (AUTOMATED)2021-10-11 21:57:42 Test Item Value Reference Range Interpretation Comments POCT GLU (test code = 0407490750) 307 mg/dL 70-110 H Lab Interpretation (test code = Abnormal 23842-9) [facility] GLUCOSE (AUTOMATED)2021-10-11 21:57:42 Test Item Value Reference Range Interpretation Comments POCT GLU (test code = 8457895853) 307 mg/dL 70-110 H Lab Interpretation (test code = Abnormal 21878-1) [facility] GLUCOSE (AUTOMATED)2021-10-11 16:41:55 Test Item Value Reference Range Interpretation Comments POCT GLU (test code = 4403034947) 246 mg/dL 70-110 H Lab Interpretation (test code = Abnormal 71725-8) [facility] GLUCOSE (AUTOMATED)2021-10-11 16:41:55 Test Item Value Reference Range Interpretation Comments POCT GLU (test code = 9204689512) 246 mg/dL 70-110 H Lab Interpretation (test code = Abnormal 69014-8) [facility] GLUCOSE (AUTOMATED)2021-10-11 12:38:49 Test Item Value Reference Range Interpretation Comments POCT GLU (test code = 5655863924) 142 mg/dL 70-110 H Lab Interpretation (test code = Abnormal 76323-8) [facility] GLUCOSE (AUTOMATED)2021-10-11 12:38:49 Test Item Value Reference Range Interpretation Comments POCT GLU (test code = 2313452723) 142 mg/dL 70-110 H Lab Interpretation (test code = Abnormal 57275-3) [facility] GLUCOSE (AUTOMATED)2021-10-11 01:08:08 Test Item Value Reference Range Interpretation Comments POCT GLU (test code = 0207931586) 266 mg/dL 70-110 H Lab Interpretation (test code = Abnormal 47320-8) [facility] GLUCOSE (AUTOMATED)2021-10-11 01:08:08 Test Item Value Reference Range Interpretation Comments POCT GLU (test code = 6344089663) 266 mg/dL 70-110 H Lab Interpretation (test code = Abnormal 01687-7) [facility] GLUCOSE (AUTOMATED)2021-10-10 21:57:04 Test Item Value Reference Range Interpretation Comments POCT GLU (test code = 2068223917) 242 mg/dL 70-110 H Lab Interpretation (test code = Abnormal 81172-0) [facility] GLUCOSE (AUTOMATED)2021-10-10 21:57:04 Test Item Value Reference Range Interpretation Comments POCT GLU (test code = 2928076808) 242 mg/dL 70-110 H Lab Interpretation (test code = Abnormal 99841-2) [facility] GLUCOSE (AUTOMATED)2021-10-10 17:12:32 Test Item Value Reference Range Interpretation Comments POCT GLU (test code = 7914191527) 267 mg/dL 70-110 H Lab Interpretation (test code = Abnormal 06696-4) [facility] GLUCOSE (AUTOMATED)2021-10-10 17:12:32 Test Item Value Reference Range Interpretation Comments POCT GLU (test code = 5794723692) 267 mg/dL 70-110 H Lab Interpretation (test code = Abnormal 35335-6) [facility] GLUCOSE (AUTOMATED)2021-10-10 13:04:25 Test Item Value Reference Range Interpretation Comments POCT GLU (test code = 1578263489) 190 mg/dL 70-110 H Lab Interpretation (test code = Abnormal 42253-5) [facility] GLUCOSE (AUTOMATED)2021-10-10 13:04:25 Test Item Value Reference Range Interpretation Comments POCT GLU (test code = 6549523861) 190 mg/dL 70-110 H Lab Interpretation (test code = Abnormal 36275-3) [facility] GLUCOSE (AUTOMATED)2021-10-10 05:17:36 Test Item Value Reference Range Interpretation Comments POCT GLU (test code = 2910483452) 314 mg/dL 70-110 H Lab Interpretation (test code = Abnormal 97208-3) [facility] GLUCOSE (AUTOMATED)2021-10-10 05:17:36 Test Item Value Reference Range Interpretation Comments POCT GLU (test code = 7364149253) 314 mg/dL 70-110 H Lab Interpretation (test code = Abnormal 67381-2) [facility] GLUCOSE (AUTOMATED)2021-10-09 21:29:28 Test Item Value Reference Range Interpretation Comments POCT GLU (test code = 0897829803) 243 mg/dL 70-110 H Lab Interpretation (test code = Abnormal 23671-2) [facility] GLUCOSE (AUTOMATED)2021-10-09 21:29:28 Test Item Value Reference Range Interpretation Comments POCT GLU (test code = 3749396318) 243 mg/dL 70-110 H Lab Interpretation (test code = Abnormal 68573-5) [facility] GLUCOSE (AUTOMATED)2021-10-09 17:31:36 Test Item Value Reference Range Interpretation Comments POCT GLU (test code = 7258536505) 287 mg/dL 70-110 H Lab Interpretation (test code = Abnormal 25703-1) [facility] GLUCOSE (AUTOMATED)2021-10-09 17:31:36 Test Item Value Reference Range Interpretation Comments POCT GLU (test code = 7563566929) 287 mg/dL 70-110 H Lab Interpretation (test code = Abnormal 37228-3) [facility] GLUCOSE (AUTOMATED)2021-10-09 16:19:46 Test Item Value Reference Range Interpretation Comments POCT GLU (test code = 3455197901) 267 mg/dL 70-110 H Lab Interpretation (test code = Abnormal 11733-3) [facility] GLUCOSE (AUTOMATED)2021-10-09 16:19:46 Test Item Value Reference Range Interpretation Comments POCT GLU (test code = 3331345982) 267 mg/dL 70-110 H Lab Interpretation (test code = Abnormal 08558-4) [facility] GLUCOSE (AUTOMATED)2021-10-09 13:00:25 Test Item Value Reference Range Interpretation Comments POCT GLU (test code = 6347559272) 232 mg/dL 70-110 H Lab Interpretation (test code = Abnormal 92800-7) [facility] GLUCOSE (AUTOMATED)2021-10-09 13:00:25 Test Item Value Reference Range Interpretation Comments POCT GLU (test code = 9789660312) 232 mg/dL 70-110 H Lab Interpretation (test code = Abnormal 12609-1) [facility] GLUCOSE (AUTOMATED)2021-10-08 21:41:51 Test Item Value Reference Range Interpretation Comments POCT GLU (test code = 6831624107) 261 mg/dL 70-110 H Lab Interpretation (test code = Abnormal 48406-8) [facility] GLUCOSE (AUTOMATED)2021-10-08 21:41:51 Test Item Value Reference Range Interpretation Comments POCT GLU (test code = 3463718524) 261 mg/dL 70-110 H Lab Interpretation (test code = Abnormal 61767-8) [facility] GLUCOSE (AUTOMATED)2021-10-08 16:46:36 Test Item Value Reference Range Interpretation Comments POCT GLU (test code = 1233969218) 222 mg/dL 70-110 H Lab Interpretation (test code = Abnormal 81202-8) [facility] GLUCOSE (AUTOMATED)2021-10-08 16:46:36 Test Item Value Reference Range Interpretation Comments POCT GLU (test code = 1225574886) 222 mg/dL 70-110 H Lab Interpretation (test code = Abnormal 55029-9) [facility] GLUCOSE (AUTOMATED)2021-10-08 12:55:03 Test Item Value Reference Range Interpretation Comments POCT GLU (test code = 9319115427) 206 mg/dL 70-110 H Lab Interpretation (test code = Abnormal 31535-2) [facility] GLUCOSE (AUTOMATED)2021-10-08 12:55:03 Test Item Value Reference Range Interpretation Comments POCT GLU (test code = 5490144846) 206 mg/dL 70-110 H Lab Interpretation (test code = Abnormal 92914-9) [facility] GLUCOSE (AUTOMATED)2021-10-08 12:55:03 Test Item Value Reference Range Interpretation Comments POCT GLU (test code = 2110370465) 203 mg/dL 70-110 H Lab Interpretation (test code = Abnormal 82346-6) [facility] GLUCOSE (AUTOMATED)2021-10-08 12:55:03 Test Item Value Reference Range Interpretation Comments POCT GLU (test code = 4400558452) 203 mg/dL 70-110 H Lab Interpretation (test code = Abnormal 94146-2) [facility] GLUCOSE (AUTOMATED)2021-10-08 02:22:41 Test Item Value Reference Range Interpretation Comments POCT GLU (test code = 2455662894) 208 mg/dL 70-110 H Lab Interpretation (test code = Abnormal 72901-0) [facility] GLUCOSE (AUTOMATED)2021-10-08 02:22:41 Test Item Value Reference Range Interpretation Comments POCT GLU (test code = 6977373312) 208 mg/dL 70-110 H Lab Interpretation (test code = Abnormal 85398-3) [facility] GLUCOSE (AUTOMATED)2021-10-07 20:21:09 Test Item Value Reference Range Interpretation Comments POCT GLU (test code = 1659890745) 194 mg/dL 70-110 H Lab Interpretation (test code = Abnormal 99734-3) [facility] GLUCOSE (AUTOMATED)2021-10-07 20:21:09 Test Item Value Reference Range Interpretation Comments POCT GLU (test code = 0129771945) 194 mg/dL 70-110 H Lab Interpretation (test code = Abnormal 70822-6) [facility] GLUCOSE (AUTOMATED)2021-10-07 14:01:31 Test Item Value Reference Range Interpretation Comments POCT GLU (test code = 6878239353) 149 mg/dL 70-110 H Lab Interpretation (test code = Abnormal 42565-5) [facility] GLUCOSE (AUTOMATED)2021-10-07 14:01:31 Test Item Value Reference Range Interpretation Comments POCT GLU (test code = 6766494487) 149 mg/dL 70-110 H Lab Interpretation (test code = Abnormal 94808-2) [facility] GLUCOSE (AUTOMATED)2021-10-07 12:58:18 Test Item Value Reference Range Interpretation Comments POCT GLU (test code = 0914690173) 151 mg/dL 70-110 H Lab Interpretation (test code = Abnormal 98891-8) [facility] GLUCOSE (AUTOMATED)2021-10-07 12:58:18 Test Item Value Reference Range Interpretation Comments POCT GLU (test code = 0536384872) 151 mg/dL 70-110 H Lab Interpretation (test code = Abnormal 66840-9) [facility] GLUCOSE (AUTOMATED)2021-10-06 22:06:43 Test Item Value Reference Range Interpretation Comments POCT GLU (test code = 8602469298) 209 mg/dL 70-110 H Lab Interpretation (test code = Abnormal 59155-2) [facility] GLUCOSE (AUTOMATED)2021-10-06 22:06:43 Test Item Value Reference Range Interpretation Comments POCT GLU (test code = 7946231569) 209 mg/dL 70-110 H Lab Interpretation (test code = Abnormal 67926-2) [facility] Packed RBC (in units), 1 Units 2021-10-06 18:19:33 Test Item Value Reference Range Interpretation Comments Cross Match Result Compatible (test code = 4409) ISBT Blood Type Code (test code = 596849) Unit Blood Type (test B Pos code = 4410) Unit Number (test [id number] code = 4411) Blood Expiration Date & Time (test code = 535443) Status Information Issued (test code = 4412) Product Red Blood Cells Identification (test code = 4413) Product Code (test [id number] Performed at [facility] code = 4414) Laboratory Services - [facility] Blood [address] [place] [id number] Free: [phone] A No. [id number] [facility] Packed RBC (in units), 1 Units 2021-10-06 18:19:33 Test Item Value Reference Range Interpretation Comments Cross Match Result Compatible (test code = 4409) ISBT Blood Type Code (test code = 078805) Unit Blood Type (test B Pos code = 4410) Unit Number (test [id number] code = 4411) Blood Expiration Date & Time (test code = 767016) Status Information Issued (test code = 4412) Product Red Blood Cells Identification (test code = 4413) Product Code (test [id number] Performed at [facility] code = 4414) Laboratory Services - [facility] Blood [address] [place] [address]Bgoj Free: [phone] A No. [id number] [facility] GLUCOSE (AUTOMATED)2021-10-06 16:43:41 Test Item Value Reference Range Interpretation Comments POCT GLU (test code = 1725475843) 160 mg/dL 70-110 H Lab Interpretation (test code = Abnormal 03491-5) [facility] GLUCOSE (AUTOMATED)2021-10-06 16:43:41 Test Item Value Reference Range Interpretation Comments POCT GLU (test code = 5629515189) 160 mg/dL 70-110 H Lab Interpretation (test code = Abnormal 10355-5) [facility] GLUCOSE (AUTOMATED)2021-10-06 12:42:56 Test Item Value Reference Range Interpretation Comments POCT GLU (test code = 3207118237) 144 mg/dL 70-110 H Lab Interpretation (test code = Abnormal 28790-5) [facility] GLUCOSE (AUTOMATED)2021-10-06 12:42:56 Test Item Value Reference Range Interpretation Comments POCT GLU (test code = 3563876259) 144 mg/dL 70-110 H Lab Interpretation (test code = Abnormal 44764-5) [facility] GLUCOSE (AUTOMATED)2021-10-06 01:48:58 Test Item Value Reference Range Interpretation Comments POCT GLU (test code = 3899839771) 208 mg/dL 70-110 H Lab Interpretation (test code = Abnormal 65573-7) [facility] GLUCOSE (AUTOMATED)2021-10-06 01:48:58 Test Item Value Reference Range Interpretation Comments POCT GLU (test code = 4728505630) 208 mg/dL 70-110 H Lab Interpretation (test code = Abnormal 52384-9) [facility] GLUCOSE (AUTOMATED)2021-10-05 21:57:50 Test Item Value Reference Range Interpretation Comments POCT GLU (test code = 1751547364) 206 mg/dL 70-110 H Lab Interpretation (test code = Abnormal 40260-7) [facility] 21:57:50 Test Item Value Reference Range Interpretation Comments POCT GLU (test code = 5394594366) 206 mg/dL 70-110 H Lab Interpretation (test code = Abnormal 71987-6) [facility]. METABOLIC PANEL (65229)2021-10-05 18:03:01 Test Item Value Reference Range Interpretation Comments NA (test code = 137 mmol/L 135-145 7571879854) K (test code = 4.7 mmol/L 3.5-5 5273499661) CL (test code = 109 mmol/L 98-108 H 2085963280) CO2 TOTAL (test code = 20 mmol/L 23-31 L 3677168960) AGAP (test code = 2-16 8049699282) BUN (test code = 22 mg/dL 7-23 3062439047) GLUCOSE (test code = 219 mg/dL 70-110 H 9817414827) CREATININE (test code = 2.51 mg/dL 0.6-1.25 H 1606034391) TOTAL BILI (test code = 0.2 mg/dL 0.1-1.3 0094811618) CALCIUM (test code = 8.3 mg/dL 8.6-10.6 L 9487564708) T PROTEIN (test code = 6.1 g/dL 6.3-8.2 L 0489064683) ALBUMIN (test code = 3.0 g/dL 3.5-5 L 8925330968) ALK PHOS (test code = 85 U/L 34-122 5905736601) ALTv (test code = 19 U/L 5-50 1742-6) AST(SGOT) (test code = 20 U/L 13-40 4491111104) eGFR (test code = mL/min/1.73m2 [id number]) JULEE (test code = JULEE) Association of Glomerular Filtration Rate (GFR) and Staging of Kidney Disease* + --+ --+ ------+| GFR (mL/min/1.73 m2) ?| With Kidney Damage ?| ?Without Kidney Damage+ --------+ --------+ +| ?>90 ?| ?Stage one ?| ? Normal ?+ ---+ ---+ -------+| ?60-89 ?| ?Stage two ?| ? Decreased GFR ? + --+ --+ ------+| ?30-59 ?| ?Stage three ?| ? Stage three ? + --+ --+ ------+| ?15-29 ?| ?Stage four ? | ? Stage four ?+ ---+ ---+ -------+| ?<15 (or dialysis) ? ?| ?Stage five ? | ? Stage five ?+ ---+ ---+ -------+ *Each stage assumes the associated GFR level has been in effect for at least three months. ?Stages 1 to 5, with or without kidney disease, indicate chronic kidney disease. Notes: Determination of stages one and two (with eGFR >59mL/min/1.73 m2) requires estimation of kidney damage for at least three months as defined by structural or functional abnormalities of the kidney, manifested by either:Pathological abnormalities or Markers of kidney damage (including abnormalities in the composition of the blood or urine or abnormalities in imaging tests). Lab Interpretation Abnormal (test code = 81346-3) [facility]. METABOLIC PANEL ([id number])2021-10-05 18:03:01 Test Item Value Reference Range Interpretation Comments NA (test code = 137 mmol/L 135-145 1924056008) K (test code = 4.7 mmol/L 3.5-5 8521308048) CL (test code = 109 mmol/L 98-108 H 6938737046) CO2 TOTAL (test code = 20 mmol/L 23-31 L 5728605727) AGAP (test code = 2-16 6008978482) BUN (test code = 22 mg/dL 7-23 3085444324) GLUCOSE (test code = 219 mg/dL 70-110 H 3772409528) CREATININE (test code = 2.51 mg/dL 0.6-1.25 H 2692054641) TOTAL BILI (test code = 0.2 mg/dL 0.1-1.5 8903798697) CALCIUM (test code = 8.3 mg/dL 8.6-10.6 L 1077036835) T PROTEIN (test code = 6.1 g/dL 6.3-8.2 L 4379342042) ALBUMIN (test code = 3.0 g/dL 3.5-5 L 7228221749) ALK PHOS (test code = 85 U/L 34-122 2520107893) ALTv (test code = 19 U/L 5-50 1742-6) AST(SGOT) (test code = 20 U/L 13-40 8721123441) eGFR (test code = mL/min/1.73m2 0694420548) JULEE (test code = JULEE) Association of Glomerular Filtration Rate (GFR) and Staging of Kidney Disease* + --+ --+ ------+| GFR (mL/min/1.73 m2) ?| With Kidney Damage ?| ?Without Kidney Damage+ --------+ --------+ +| ?>90 ?| ?Stage one ?| ? Normal ?+ ---+ ---+ -------+| ?60-89 ?| ?Stage two ?| ? Decreased GFR ? + --+ --+ ------+| ?30-59 ?| ?Stage three ?| ? Stage three ? + --+ --+ ------+| ?15-29 ?| ?Stage four ? | ? Stage four ?+ ---+ ---+ -------+| ?<15 (or dialysis) ? ?| ?Stage five ? | ? Stage five ?+ ---+ ---+ -------+ *Each stage assumes the associated GFR level has been in effect for at least three months. ?Stages 1 to 5, with or without kidney disease, indicate chronic kidney disease. Notes: Determination of stages one and two (with eGFR >59mL/min/1.73 m2) requires estimation of kidney damage for at least three months as defined by structural or functional abnormalities of the kidney, manifested by either:Pathological abnormalities or Markers of kidney damage (including abnormalities in the composition of the blood or urine or abnormalities in imaging tests). Lab Interpretation Abnormal (test code = 40306-5) [facility] ([facility]), 1 Units 2021-10-05 16:16:38 Test Item Value Reference Range Interpretation Comments Cross Match Result Compatible (test code = 4409) ISBT Blood Type Code (test code = 479992) Unit Blood Type (test B Pos code = 4410) Unit Number (test [id number] code = 4411) Blood Expiration Date & Time (test code = 335919) Status Information Issued (test code = 4412) Product Red Blood Cells Identification (test code = 4413) Product Code (test [id number] Performed at [facility] code = 4414) Laboratory [facility] Blood [address] [place] [address] Free: [phone] A No. [id number] [facility] RBC (in units), 1 Units 2021-10-05 16:16:38 Test Item Value Reference Range Interpretation Comments Cross Match Result Compatible (test code = 4409) ISBT Blood Type Code (test code = 296000) Unit Blood Type (test B Pos code = 4410) Unit Number (test [id number] code = 4411) Blood Expiration Date & Time (test code = 342325) Status Information Issued (test code = 4412) Product Red Blood Cells Identification (test code = 4413) Product Code (test [id number] Performed at [facility] code = 4414) Laboratory [facility] Blood [address] [place] [address] Free: [phone] A No. [id number] [facility] and Screen - ONCE [id number] 15:48:12 Test Item Value Reference Range Interpretation Comments ABO & RH (test code B Positive Performe d at [facility] = 20) Laboratory [facility] [address] [place], [place] [address]Toll Free: [phone] A No. [id number] IAT (test code = Negative Performed a t [facility] 1185) Laboratory [facility] [address] [place], [place] [address]Toll Free: [phone] A No. [id number] [facility] - ONCE [id number] 15:48:12 Test Item Value Reference Range Interpretation Comments ABO & RH (test code B Positive Performe d at [facility] = 20) Laboratory [facility] Blood [address] [place], [place] [address]Toll Free: [phone] A No. [id number] IAT (test code = Negative Performed a t [facility] 1185) Laboratory [facility] Blood [address] [place] [address]Oggg Free: [phone] A No. [id number] [facility] / [id number] 15:21:22 Test Item Value Reference Range Interpretation Comments WBC (test code = 6690-2) See_Comment [A utomated message] The system [employer] generated this result transmit escobar reference range : 4.20 - 10.70 10*3/?L. The reference range was not used to interpret this result as normal/abnormal . RBC (test code = 789-8) See_Comment L [Au tomated message] The system [employer] generated this result transmit escobar reference range : 4.26 - 5.52 10* 6/?L. The reference r blade was not used to interpret this result as normal/abnormal . HGB (test code = 718-7) 6.2 g/dL 12.2-16.4 L HCT (test code = 4544-3) 21.9 % 38.4-49.3 L MCH (test code = 785-6) 20.9 pg 26.1-32.7 L MCV (test code = 787-2) 73.7 fL 81.7-95.6 L MCHC (test code = 786-4) 28.3 g/dL 31.2-35 L PLT (test code = 777-3) See_Comment H [Au tomated message] The system [employer] generated this result transmit escobar reference range : 150 - 328 10*3/?L. The reference range was not used to interpret this result as normal/abnormal . MPV (test code = 11.1 fL 9.8-13 49096-0) RDW-CV (test code = 15.1 % 12.1-15.4 788-0) RDW-SD (test code = 40.3 fL 38.5-51.6 56655-0) NRBC x10^3 (test code = See_Comment [Au tomated message] 0033245351) The system [employer] generated this result transmit escobar reference range : 10*3/?L. The reference range was not used to interpret this result as normal/abnormal . NRBC/100 WBC (test code See_Comment [Au tomated message] = 8473810060) The system [facility] generated this result transmit escobar reference range : 0.0 - 10.0 /100 WBC s. The reference r blade was not used to interpret this result as normal/abnormal . IPF % (test code = 2173234924) Lab Interpretation (test Abnormal code = 15532-0) [facility] / [id number] 15:21:22 Test Item Value Reference Range Interpretation Comments WBC (test code = 6690-2) See_Comment [A utomated message] The system [employer] generated this result transmit escobar reference range : 4.20 - 10.70 10*3/?L. The reference range was not used to interpret this result as normal/abnormal . RBC (test code = 789-8) See_Comment L [Au tomated message] The system [employer] generated this result transmit escobar reference range : 4.26 - 5.52 10* 6/?L. The reference r blade was not used to interpret this result as normal/abnormal . HGB (test code = 718-7) 6.2 g/dL 12.2-16.4 L HCT (test code = 4544-3) 21.9 % 38.4-49.3 L MCH (test code = 785-6) 20.9 pg 26.1-32.7 L MCV (test code = 787-2) 73.7 fL 81.7-95.6 L MCHC (test code = 786-4) 28.3 g/dL 31.2-35 L PLT (test code = 777-3) See_Comment H [Au tomated message] The system [facility] generated this result transmit escobar reference range : 150 - 328 10*3/?L. The reference range was not used to interpret this result as normal/abnormal . MPV (test code = 11.1 fL 9.8-13 05544-1) RDW-CV (test code = 15.1 % 12.1-15.4 788-0) RDW-SD (test code = 40.3 fL 38.5-51.6 96838-9) NRBC x10^3 (test code = See_Comment [Au tomated message] [id number]) The system [employer] generated this result transmit escobar reference range : 10*3/?L. The reference range was not used to interpret this result as normal/abnormal . NRBC/100 WBC (test code See_Comment [Au tomated message] = 6188735609) The system [employer] generated this result transmit escobar reference range : 0.0 - 10.0 /100 WBC s. The reference r blade was not used to interpret this result as normal/abnormal . IPF % (test code = 7031840153) Lab Interpretation (test Abnormal code = 50002-4) [facility] NATRIURET[facility] FACTOR (BNP)2017-04-13 14:02:00 Test Item Value Reference Range Interpretation Comments B-TYPE NATRIURETIC PEPTIDE (BEAKER) 148 pg/mL 0-100 H (test code = 700) [id number] 13:52:00 Test Item Value Reference Range Interpretation Comments MAGNESIUM (BEAKER) (test code = 2.3 mg/dL 1.6-2.6 627) BASIC METABOLIC [id number] 13:52:00 Test Item Value Reference Range Interpretation Comments SODIUM (BEAKER) 134 meq/L 136-145 L (test code = 381) POTASSIUM (BEAKER) 4.1 meq/L 3.5-5.1 (test code = 379) CHLORIDE (BEAKER) 100 meq/L 98-107 (test code = 382) CO2 (BEAKER) (test 24 meq/L 22-29 code = 355) BLOOD UREA NITROGEN 65 mg/dL 7-21 H (BEAKER) (test code = 354) CREATININE (BEAKER) 1.90 mg/dL 0.57-1.25 H (test code = 358) GLUCOSE RANDOM 81 mg/dL 70-105 (BEAKER) (test code = 652) CALCIUM (BEAKER) 9.4 mg/dL 8.4-10.2 (test code = 697) EGFR (BEAKER) (test 38 mL/min/1.73 ESTIMA ESCOBAR GFR IS code = 1092) sq m NOT ACCURATE CREATININE CLEARANCE IN PREDICTING GLOMERULAR FILTRATION RATE . ESTIMATED GFR I S NOT APPLICABLE FOR DIALYSIS PATIEN TS. POCT-GLUCOSE [id number] 12:21:00 Test Item Value Reference Range Interpretation Comments POC-GLUCOSE METER 162 mg/dL 70-110 H TESTED AT [place] [address] ([facility]) (test code = [place]ARCELLE [place] 15[address]) [address] POCT-GLUCOSE [id number] 09:05:00 Test Item Value Reference Range Interpretation Comments POC-GLUCOSE METER 147 mg/dL 70-110 H TESTED AT [place] [address] ([facility]) (test code = [place]ARCELLE [place] 1538) [address] POCT-GLUCOSE [id number] 20:53:00 Test Item Value Reference Range Interpretation Comments POC-GLUCOSE METER 143 mg/dL 70-110 H TESTED AT [place] [address] ([facility]) (test code = [place]ARCELLE [place] 1538) [address] POCT-GLUCOSE [id number] 18:29:00 Test Item Value Reference Range Interpretation Comments POC-GLUCOSE METER 166 mg/dL 70-110 H TESTED AT [place] [address] ([facility]) (test code = [place]ARCELLE [place] 1538) [address] POCT-GLUCOSE [id number] 13:05:00 Test Item Value Reference Range Interpretation Comments POC-GLUCOSE METER 165 mg/dL 70-110 H TESTED AT [place] [address] ([facility]) (test code = [place]ARCELLE [place] 1538) [address] POCT-GLUCOSE [id number] 08:33:00 Test Item Value Reference Range Interpretation Comments POC-GLUCOSE METER 143 mg/dL 70-110 H TESTED AT [place] [address] ([facility]) (test code = JOHANNERI [place] [address]) [address] [id number] 06:01:00 Test Item Value Reference Range Interpretation Comments MAGNESIUM (BEAKER) (test code = 1.6 mg/dL 1.6-2.6 627) BASIC METABOLIC [id number] 06:01:00 Test Item Value Reference Range Interpretation Comments SODIUM (BEAKER) 133 meq/L 136-145 L (test code = 381) POTASSIUM (BEAKER) 4.2 meq/L 3.5-5.1 (test code = 379) CHLORIDE (BEAKER) 101 meq/L 98-107 (test code = 382) CO2 (BEAKER) (test 24 meq/L 22-29 code = 355) BLOOD UREA NITROGEN 21 mg/dL 7-21 (BEAKER) (test code = 354) CREATININE (BEAKER) 1.30 mg/dL 0.57-1.25 H (test code = 358) GLUCOSE RANDOM 117 mg/dL 70-105 H (BEAKER) (test code = 652) CALCIUM (BEAKER) 8.2 mg/dL 8.4-10.2 L (test code = 697) EGFR (BEAKER) (test 59 mL/min/1.73 ESTIMA ESCOBAR GFR IS code = 1092) sq m NOT ACCURATE CREATININE CLEARANCE IN PREDICTING GLOMERULAR FILTRATION RATE . ESTIMATED GFR I S NOT APPLICABLE FOR DIALYSIS PATIEN TS. CBC W/PLT COUNT & AUTO [id number] 05:11:00 Test Item Value Reference Range Interpretation Comments WHITE BLOOD CELL COUNT (BEAKER) 9.8 K/ L 3.5-10.5 (test code = 775) RED BLOOD CELL COUNT (BEAKER) 4.70 M/ L 4.63-6.08 (test code = 761) HEMOGLOBIN (BEAKER) (test code = 11.7 GM/DL 13.7-17.5 L 410) HEMATOCRIT (BEAKER) (test code = 37.2 % 40.1-51.0 L 411) MEAN CORPUSCULAR VOLUME (BEAKER) 79.1 fL 79.0-92.2 (test code = 753) MEAN CORPUSCULAR HEMOGLOBIN 24.9 pg 25.7-32.2 L (BEAKER) (test code = 751) MEAN CORPUSCULAR HEMOGLOBIN CONC 31.5 GM/DL 32.3-36.5 L (BEAKER) (test code = 752) RED CELL DISTRIBUTION WIDTH 15.1 % 11.6-14.4 H (BEAKER) (test code = 412) PLATELET COUNT (BEAKER) (test 460 K/CU MM 150-450 H code = 756) MEAN PLATELET VOLUME (BEAKER) 10.2 fL 9.4-12.4 (test code = 754) NUCLEATED RED BLOOD CELLS 0 /100 WBC 0-0 (BEAKER) (test code = 413) NEUTROPHILS RELATIVE PERCENT 55 % (BEAKER) (test code = 429) LYMPHOCYTES RELATIVE PERCENT 24 % (BEAKER) (test code = 430) MONOCYTES RELATIVE PERCENT 10 % (BEAKER) (test code = 431) EOSINOPHILS RELATIVE PERCENT 10 % (BEAKER) (test code = 432) BASOPHILS RELATIVE PERCENT 1 % (BEAKER) (test code = 437) NEUTROPHILS ABSOLUTE COUNT 5.42 K/ L 1.78-5.38 H (BEAKER) (test code = 670) LYMPHOCYTES ABSOLUTE COUNT 2.34 K/ L 1.32-3.57 (BEAKER) (test code = 414) MONOCYTES ABSOLUTE COUNT (BEAKER) 0.95 K/ L 0.30-0.82 H (test code = 415) EOSINOPHILS ABSOLUTE COUNT 0.97 K/ L 0.04-0.54 H (BEAKER) (test code = 416) BASOPHILS ABSOLUTE COUNT (BEAKER) 0.08 K/ L 0.01-0.08 (test code = 417) IMMATURE GRANULOCYTES-RELATIVE 0 % 0-1 PERCENT (BEAKER) (test code = 2801) POCT-GLUCOSE [id number] 21:59:00 Test Item Value Reference Range Interpretation Comments POC-GLUCOSE METER 147 mg/dL 70-110 H TESTED AT [facility] 67 (BEAKER) (test code = [facility] 1538) [address] POCT-GLUCOSE [id number] 18:46:00 Test Item Value Reference Range Interpretation Comments POC-GLUCOSE METER 161 mg/dL 70-110 H TESTED AT [place] [address] (BEAKER) (test code = [facility] 1538) [address] POCT-GLUCOSE [id number] 10:47:00 Test Item Value Reference Range Interpretation Comments POC-GLUCOSE METER 113 mg/dL 70-110 H TESTED AT [place] [address] (BEAKER) (test code = [facility] 1538) [address] [id number] 06:25:00 Test Item Value Reference Range Interpretation Comments MAGNESIUM (BEAKER) (test code = 2.0 mg/dL 1.6-2.6 627) CBC W/PLT COUNT & AUTO [id number] 05:58:00 Test Item Value Reference Range Interpretation Comments WHITE BLOOD CELL COUNT (BEAKER) 8.6 K/ L 3.5-10.5 (test code = 775) RED BLOOD CELL COUNT (BEAKER) 4.43 M/ L 4.63-6.08 L (test code = 761) HEMOGLOBIN (BEAKER) (test code = 11.3 GM/DL 13.7-17.5 L 410) HEMATOCRIT (BEAKER) (test code = 35.5 % 40.1-51.0 L 411) MEAN CORPUSCULAR VOLUME (BEAKER) 80.1 fL 79.0-92.2 (test code = 753) MEAN CORPUSCULAR HEMOGLOBIN 25.5 pg 25.7-32.2 L (BEAKER) (test code = 751) MEAN CORPUSCULAR HEMOGLOBIN CONC 31.8 GM/DL 32.3-36.5 L (BEAKER) (test code = 752) RED CELL DISTRIBUTION WIDTH 15.4 % 11.6-14.4 H (BEAKER) (test code = 412) PLATELET COUNT (BEAKER) (test 434 K/CU MM 150-450 code = 756) MEAN PLATELET VOLUME (BEAKER) 10.2 fL 9.4-12.4 (test code = 754) NUCLEATED RED BLOOD CELLS 0 /100 WBC 0-0 (BEAKER) (test code = 413) NEUTROPHILS RELATIVE PERCENT 58 % (BEAKER) (test code = 429) LYMPHOCYTES RELATIVE PERCENT 21 % (BEAKER) (test code = 430) MONOCYTES RELATIVE PERCENT 10 % (BEAKER) (test code = 431) EOSINOPHILS RELATIVE PERCENT 10 % (BEAKER) (test code = 432) BASOPHILS RELATIVE PERCENT 1 % (BEAKER) (test code = 437) NEUTROPHILS ABSOLUTE COUNT 4.96 K/ L 1.78-5.38 (BEAKER) (test code = 670) LYMPHOCYTES ABSOLUTE COUNT 1.84 K/ L 1.32-3.57 (BEAKER) (test code = 414) MONOCYTES ABSOLUTE COUNT (BEAKER) 0.82 K/ L 0.30-0.82 (test code = 415) EOSINOPHILS ABSOLUTE COUNT 0.87 K/ L 0.04-0.54 H (BEAKER) (test code = 416) BASOPHILS ABSOLUTE COUNT (BEAKER) 0.08 K/ L 0.01-0.08 (test code = 417) IMMATURE GRANULOCYTES-RELATIVE 0 % 0-1 PERCENT (BEAKER) (test code = 2801) POCT-GLUCOSE [id number] 23:38:00 Test Item Value Reference Range Interpretation Comments POC-GLUCOSE METER 118 mg/dL 70-110 H TESTED AT [place] [address] [facility] (test code = [place]ARCELLE [place] 1538) [address] POCT-GLUCOSE [id number] 16:21:00 Test Item Value Reference Range Interpretation Comments POC-GLUCOSE METER 123 mg/dL 70-110 H TESTED AT [place] [address] ([facility]) (test code = MARCELLE Claire [place] 1538) [address] [id number] 14:12:00 Test Item Value Reference Range Interpretation Comments ACTIVATED CLOTTING TIME 367 sec TEST ED AT [place] [address] ([facility]) (test code = MARCELLE Claire [place] [address]) [address] DILUTE MARILEE [facility] (DRVV)2017-03-26 13:44:00 Test Item Value Reference Range Interpretation Comments PROTIME (BEAKER) (test 13.9 seconds 11.7-14.7 code = 759) INR (BEAKER) (test code = 1.1 <=5.9 370) PARTIAL THROMBOPLASTIN 36.3 seconds 22.5-36.0 H TIME (BEAKER) (test code = 760) DRVV INTERPRETATION Normal PT,PTT,DRVV (BEAKER) (test code = results;Negative 2405) screen for Lupus Anticoagulant. [id number] Brynn Coon MD ([facility]) (test code = (electronic 2610) signature) DRVV SCREEN RATIO (BEAKER) 0.84 <1.20 (test code = 2708) [id number] 07:03:00 Test Item Value Reference Range Interpretation Comments MAGNESIUM (BEAKER) (test code = 1.5 mg/dL 1.6-2.6 L 627) BASIC METABOLIC [id number] 07:03:00 Test Item Value Reference Range Interpretation Comments SODIUM (BEAKER) 135 meq/L 136-145 L (test code = 381) POTASSIUM (BEAKER) 4.1 meq/L 3.5-5.1 (test code = 379) CHLORIDE (BEAKER) 102 meq/L 98-107 (test code = 382) CO2 (BEAKER) (test 27 meq/L 22-29 code = 355) BLOOD UREA NITROGEN 21 mg/dL 7-21 (BEAKER) (test code = 354) CREATININE (BEAKER) 1.33 mg/dL 0.57-1.25 H (test code = 358) GLUCOSE RANDOM 122 mg/dL 70-105 H (BEAKER) (test code = 652) CALCIUM (BEAKER) 8.4 mg/dL 8.4-10.2 (test code = 697) EGFR (BEAKER) (test 58 mL/min/1.73 ESTIMA ESCOBAR GFR IS code = 1092) sq m NOT ACCURATE CREATININE CLEARANCE IN PREDICTING GLOMERULAR FILTRATION RATE . ESTIMATED GFR I S NOT APPLICABLE FOR DIALYSIS PATIEN TS. [id number] 06:22:00 Test Item Value Reference Range Interpretation Comments PROTIME (BEAKER) (test code = 14.1 seconds 11.7-14.7 759) INR (BEAKER) (test code = 370) 1.1 <=5.9 PARTIAL THROMBOPLASTIN TIME 34.2 seconds 22.5-36.0 (BEAKER) (test code = 760) RECOMMENDED COUMADIN/WARFARIN INR THERAPY RANGESSTANDARD DOSE: 2.0 - 3.0 Includes: PROPHYLAXIS for venous thrombosis, systemic embolization; TREATMENT for venous thrombosis and/or pulmonary embolus.HIGH RISK: Target INR is 2.5-3.5 for patients with mechanical heart valves.CBC W/PLT COUNT & AUTO [id number] 06:20:00 Test Item Value Reference Range Interpretation Comments WHITE BLOOD CELL COUNT (BEAKER) 10.0 K/ L 3.5-10.5 (test code = 775) RED BLOOD CELL COUNT (BEAKER) 4.58 M/ L 4.63-6.08 L (test code = 761) HEMOGLOBIN (BEAKER) (test code = 11.5 GM/DL 13.7-17.5 L 410) HEMATOCRIT (BEAKER) (test code = 36.9 % 40.1-51.0 L 411) MEAN CORPUSCULAR VOLUME (BEAKER) 80.6 fL 79.0-92.2 (test code = 753) MEAN CORPUSCULAR HEMOGLOBIN 25.1 pg 25.7-32.2 L (BEAKER) (test code = 751) MEAN CORPUSCULAR HEMOGLOBIN CONC 31.2 GM/DL 32.3-36.5 L (BEAKER) (test code = 752) RED CELL DISTRIBUTION WIDTH 15.4 % 11.6-14.4 H (BEAKER) (test code = 412) PLATELET COUNT (BEAKER) (test 421 K/CU MM 150-450 code = 756) MEAN PLATELET VOLUME (BEAKER) 9.9 fL 9.4-12.4 (test code = 754) NUCLEATED RED BLOOD CELLS 0 /100 WBC 0-0 (BEAKER) (test code = 413) NEUTROPHILS RELATIVE PERCENT 54 % (BEAKER) (test code = 429) LYMPHOCYTES RELATIVE PERCENT 25 % (BEAKER) (test code = 430) MONOCYTES RELATIVE PERCENT 10 % (BEAKER) (test code = 431) EOSINOPHILS RELATIVE PERCENT 10 % (BEAKER) (test code = 432) BASOPHILS RELATIVE PERCENT 1 % (BEAKER) (test code = 437) NEUTROPHILS ABSOLUTE COUNT 5.43 K/ L 1.78-5.38 H (BEAKER) (test code = 670) LYMPHOCYTES ABSOLUTE COUNT 2.49 K/ L 1.32-3.57 (BEAKER) (test code = 414) MONOCYTES ABSOLUTE COUNT (BEAKER) 1.03 K/ L 0.30-0.82 H (test code = 415) EOSINOPHILS ABSOLUTE COUNT 0.97 K/ L 0.04-0.54 H (BEAKER) (test code = 416) BASOPHILS ABSOLUTE COUNT (BEAKER) 0.09 K/ L 0.01-0.08 H (test code = 417) IMMATURE GRANULOCYTES-RELATIVE 0 % 0-1 PERCENT (BEAKER) (test code = 2801) [id number] 17:20:00 Test Item Value Reference Range Interpretation Comments MAGNESIUM (BEAKER) 1.6 mg/dL 1.6-2.6 Specimen slightly (test code = 627) hemolyzed HEXAGONAL [id number] 15:09:00 Test Item Value Reference Range Interpretation Comments HEXAGONAL PHOSPHOLIPID (BEAKER) Negative (test code = 1790) BASIC METABOLIC [id number] 08:17:00 Test Item Value Reference Range Interpretation Comments SODIUM (BEAKER) 137 meq/L 136-145 (test code = 381) POTASSIUM (BEAKER) 3.7 meq/L 3.5-5.1 (test code = 379) CHLORIDE (BEAKER) 102 meq/L 98-107 (test code = 382) CO2 (BEAKER) (test 28 meq/L 22-29 code = 355) BLOOD UREA NITROGEN 22 mg/dL 7-21 H (BEAKER) (test code = 354) CREATININE (BEAKER) 1.43 mg/dL 0.57-1.25 H (test code = 358) GLUCOSE RANDOM 125 mg/dL 70-105 H (BEAKER) (test code = 652) CALCIUM (BEAKER) 8.2 mg/dL 8.4-10.2 L (test code = 697) EGFR (BEAKER) (test 53 mL/min/1.73 ESTIMA ESCOBAR GFR IS code = 1092) sq m NOT ACCURATE CREATININE CLEARANCE IN PREDICTING GLOMERULAR FILTRATION RATE . ESTIMATED GFR I S NOT APPLICABLE FOR DIALYSIS PATIEN TS. CBC W/PLT COUNT & AUTO [id number] 07:42:00 Test Item Value Reference Range Interpretation Comments WHITE BLOOD CELL COUNT (BEAKER) 9.7 K/ L 3.5-10.5 (test code = 775) RED BLOOD CELL COUNT (BEAKER) 4.33 M/ L 4.63-6.08 L (test code = 761) HEMOGLOBIN (BEAKER) (test code = 10.8 GM/DL 13.7-17.5 L 410) HEMATOCRIT (BEAKER) (test code = 34.9 % 40.1-51.0 L 411) MEAN CORPUSCULAR VOLUME (BEAKER) 80.6 fL 79.0-92.2 (test code = 753) MEAN CORPUSCULAR HEMOGLOBIN 24.9 pg 25.7-32.2 L (BEAKER) (test code = 751) MEAN CORPUSCULAR HEMOGLOBIN CONC 30.9 GM/DL 32.3-36.5 L (BEAKER) (test code = 752) RED CELL DISTRIBUTION WIDTH 15.7 % 11.6-14.4 H (BEAKER) (test code = 412) PLATELET COUNT (BEAKER) (test 447 K/CU MM 150-450 code = 756) MEAN PLATELET VOLUME (BEAKER) 9.9 fL 9.4-12.4 (test code = 754) NUCLEATED RED BLOOD CELLS 0 /100 WBC 0-0 (BEAKER) (test code = 413) NEUTROPHILS RELATIVE PERCENT 54 % (BEAKER) (test code = 429) LYMPHOCYTES RELATIVE PERCENT 25 % (BEAKER) (test code = 430) MONOCYTES RELATIVE PERCENT 11 % (BEAKER) (test code = 431) EOSINOPHILS RELATIVE PERCENT 10 % (BEAKER) (test code = 432) BASOPHILS RELATIVE PERCENT 1 % (BEAKER) (test code = 437) NEUTROPHILS ABSOLUTE COUNT 5.20 K/ L 1.78-5.38 (BEAKER) (test code = 670) LYMPHOCYTES ABSOLUTE COUNT 2.44 K/ L 1.32-3.57 (BEAKER) (test code = 414) MONOCYTES ABSOLUTE COUNT (BEAKER) 1.04 K/ L 0.30-0.82 H (test code = 415) EOSINOPHILS ABSOLUTE COUNT 0.94 K/ L 0.04-0.54 H (BEAKER) (test code = 416) BASOPHILS ABSOLUTE COUNT (BEAKER) 0.07 K/ L 0.01-0.08 (test code = 417) IMMATURE GRANULOCYTES-RELATIVE 0 % 0-1 PERCENT (BEAKER) (test code = 2801) BASIC METABOLIC [id number] 06:39:00 Test Item Value Reference Range Interpretation Comments SODIUM (BEAKER) 138 meq/L 136-145 (test code = 381) POTASSIUM (BEAKER) 3.8 meq/L 3.5-5.1 (test code = 379) CHLORIDE (BEAKER) 102 meq/L 98-107 (test code = 382) CO2 (BEAKER) (test 26 meq/L 22-29 code = 355) BLOOD UREA NITROGEN 22 mg/dL 7-21 H (BEAKER) (test code = 354) CREATININE (BEAKER) 1.61 mg/dL 0.57-1.25 H (test code = 358) GLUCOSE RANDOM 168 mg/dL 70-105 H (BEAKER) (test code = 652) CALCIUM (BEAKER) 8.4 mg/dL 8.4-10.2 (test code = 697) EGFR (BEAKER) (test 46 mL/min/1.73 ESTIMA ESCOBAR GFR IS code = 1092) sq m NOT ACCURATE CREATININE CLEARANCE IN PREDICTING GLOMERULAR FILTRATION RATE . ESTIMATED GFR I S NOT APPLICABLE FOR DIALYSIS PATIEN TS. [id number] 12:30:00 Test Item Value Reference Range Interpretation Comments MAGNESIUM (BEAKER) (test code = 1.4 mg/dL 1.6-2.6 L 627) BASIC METABOLIC [id number] 12:30:00 Test Item Value Reference Range Interpretation Comments SODIUM (BEAKER) 138 meq/L 136-145 (test code = 381) POTASSIUM (BEAKER) 3.7 meq/L 3.5-5.1 (test code = 379) CHLORIDE (BEAKER) 102 meq/L 98-107 (test code = 382) CO2 (BEAKER) (test 30 meq/L 22-29 H code = 355) BLOOD UREA NITROGEN 19 mg/dL 7-21 (BEAKER) (test code = 354) CREATININE (BEAKER) 1.55 mg/dL 0.57-1.25 H (test code = 358) GLUCOSE RANDOM 154 mg/dL 70-105 H (BEAKER) (test code = 652) CALCIUM (BEAKER) 8.5 mg/dL 8.4-10.2 (test code = 697) EGFR (BEAKER) (test 49 mL/min/1.73 ESTIMA ESCOBAR GFR IS code = 1092) sq m NOT ACCURATE CREATININE CLEARANCE IN PREDICTING GLOMERULAR FILTRATION RATE . ESTIMATED GFR I S NOT APPLICABLE FOR DIALYSIS PATIEN TS. B-TYPE NATRIURETIC FACTOR (BNP)2017-03-23 04:56:00 Test Item Value Reference Range Interpretation Comments B-TYPE NATRIURETIC PEPTIDE (BEAKER) 796 pg/mL 0-100 H (test code = 700) MR, CARDIAC, [id number] 14:39:00Reason for exam:->concern for non- compaction CMPFINAL REPORT Cardiac MRI dated 22 March 2017 INDICATION: This is a 46 year-old male with cardiomyopathy presents for assessment. At the time of dictation, patient's coronary status is unknown. This study is performed in order to quantitate left ventricular function, and to dete rmine myocardial viability and damage. TECHNIQUE: Valentino ACHIEVA MRI scanner. Morphologic and dynamic cine imaging were performed in multiple projections before and after contrast administration. Thereafter, gadolinium was administered, which was followed by viability/scar imaging. Finally, flow quant ification sequences were performed to determine the degree of valvular dysfunction. Please refer to the contrast sheet scanned in the EPIC system for the amount and route of contrast given. Scanning blood pressure was 132/76, and patient weighs 172 pounds with height of 69 inches. Body surface area is approximately 1.95 sq m. FINDINGS: The chest wall and mediastinum appears unremarkable. Mild circumferential pericardial effusion is identified. The central pulmonary artery is still normal in calibre.There are significant bilateral pleural effusion identified, right greater than left, with associated atelectatic changes. Pulmonary vasculature is somewhat prominent suggesting a degree of cardiac congestion. The cardiac chambers demonstrate normal atrioventricular and ventriculoarterial concordance,and systemic and pulmonary venous return. The thoracic aorta is normal in course, caliber, and contour. There is no evidence of acute aortic pathology, such as dissection, intramural hematoma, or contained rupture. The left ventricle is enlarged with severe global systolic dysfunction. By visual estimation, the inferolateral wall appears to have the worse wall motion. Quantitative values are as follows: EDV = 245 cc; ESV = 185 cc; stroke volume = 60 cc; and ejection fraction = 25%. Calculated absolute cardiac output = 5.6 liters/min. Absolute left ventricular mass = 150 grams. Index LVEDV = 126 cc/sq m confirming left ventricular enlargement. There was a concern of left ventricular noncompaction. Mild increased trabeculation is seen , likely in the setting of dilated LV, not reviewed the criteriafor left noncompaction (i.e less than 2.3:1 ratio). In addition, in the serial short axis data set, no abrupt thinning of the myocardium is seen, commonly associated with noncompaction. In summary, this no imaging evidence of left ventricular noncompaction by MRI. The right ventricle is normal in sizeand function. Quantitative values are as follows: EDV = 115 cc; ESV = 66 cc; and ejection fraction =43%. Cine imaging and flow quantification reveals normal mitral, aortic and tricuspid valve function. Viability/scar imaging reveals majority of the left ventricle have full-thickness, viable appearingmyocardium. Incidental note, in the basal inferolateral wall, some patchy subendocardial hyperenhancement is seen, where wall motion abnormality is located. Clinical significance of this finding is uncertain and at the time of dictation, patient's coronary status is unknown. In addition, even in nonisc hemic cardiomyopathy, patchy subendocardial enhancement has been well reported. There is at least moderate reduction in left ventricular long axis strain, - 6.6%; normal MRI reference value is approximately -16.5 + / - 2.2% for male. Ventricular thrombus is not present. Left atrial enlargement is identified. CONCLUSIONS: 1. The left ventricle is mildly enlarged, even after indexed to body surface areaEjection fraction is quantified to be 25%. Quantitative left ventricular functional values are as described above. There was a concern for left ventricular noncompaction. Mild increasing trabeculation is identified, a common finding in the presence of left ventricular enlargement. In addition, by MRI imaging criteria, no left ventricular noncompaction is identified; in addition, no abrupt thinning ofthe myocardium is seen. Viability/scar imaging reveals majority of the left ventricle have full-thickness, viable appearing myocardium. Some patchy subendocardial hyperenhancement is seen in the basal i nferolateral wall, where wall motion abnormality is located. Clinical significance of this finding is uncertain and at the time of dictation, patient's coronary status is unknown. In addition, even in the non - ischaemic cardiomyopathy, patchy subendocardial enhancement has been well reported. 2. The right ventricle is normal in size and function. Quantitative right ventricular functional veins as described above 3. Normal aortic and mitral valvular function. 4. Left atrial enlargement. 5. Large bibasal pleural effusion, right greater than left. Pulmonary vasculature is also somewhat prominent suggesting a degree of cardiac congestion. Signed: Kika Navas MDReport Verified Date/Time: 03/22/2017 14:39:59 Reading Location: [place] [address] Cardiology MRI MAGNESIUM 2017-03-22 07:35:00 Test Item Value Reference Range Interpretation Comments MAGNESIUM (BEAKER) (test code = 1.3 mg/dL 1.6-2.6 L 627) COMPREHENSIVE METABOLIC [id number] 07:35:00 Test Item Value Reference Range Interpretation Comments TOTAL PROTEIN 7.1 gm/dL 6.0-8.3 (BEAKER) (test code = 770) ALBUMIN (BEAKER) 2.5 g/dL 3.5-5.0 L (test code = 1145) ALKALINE PHOSPHATASE 63 U/L 40-150 (BEAKER) (test code = 346) BILIRUBIN TOTAL 0.8 mg/dL 0.2-1.2 (BEAKER) (test code = 377) SODIUM (BEAKER) (test 138 meq/L 136-145 code = 381) POTASSIUM (BEAKER) 3.7 meq/L 3.5-5.1 (test code = 379) CHLORIDE (BEAKER) 105 meq/L 98-107 (test code = 382) CO2 (BEAKER) (test 25 meq/L 22-29 code = 355) BLOOD UREA NITROGEN 18 mg/dL 7-21 (BEAKER) (test code = 354) CREATININE (BEAKER) 1.40 mg/dL 0.57-1.25 H (test code = 358) GLUCOSE RANDOM 114 mg/dL 70-105 H (BEAKER) (test code = 652) CALCIUM (BEAKER) 8.4 mg/dL 8.4-10.2 (test code = 697) AST (SGOT) (BEAKER) 14 U/L 5-34 (test code = 353) ALT (SGPT) (BEAKER) 8 U/L 6-55 (test code = 347) EGFR (BEAKER) (test 55 mL/min/1.73 ESTIMA ESCOBAR GFR IS code = 1092) sq m NOT ACCURATE CREATININE CLEARANCE IN PREDICTING GLOMERULAR FILTRATION RATE . ESTIMATED GFR I S NOT APPLICABLE FOR DIALYSIS PATIEN TS. CARDIOLIPIN ANTIBODIES, IGG AND [id number] 14:12:00 Test Item Value Reference Range Interpretation Comments ANTICARDIOLIPIN IGG ANTIBODY (BEAKER) < GPL (test code = 712) ANTICARDIOLIPIN IGM ANTIBODY (BEAKER) 2.5 MPL (test code = 713) Anticardiolipin IgG Result Interpretation:NEG: <20 GPL; U/mlPOS: >/=20 GPL; U/mlAnticardiolipin IgM Result Interpretation:NEG: <20 MPL; U/mlPOS: >/=20 MPL; U/mlB-TYPE NATRIURETIC FACTOR (BNP)2017-03-21 07:38:00 Test Item Value Reference Range Interpretation Comments B-TYPE NATRIURETIC PEPTIDE 1047 pg/mL 0-100 H (BEAKER) (test code = 700) BASIC METABOLIC [id number] 07:34:00 Test Item Value Reference Range Interpretation Comments SODIUM (BEAKER) 136 meq/L 136-145 (test code = 381) POTASSIUM (BEAKER) 4.1 meq/L 3.5-5.1 (test code = 379) CHLORIDE (BEAKER) 107 meq/L 98-107 (test code = 382) CO2 (BEAKER) (test 24 meq/L 22-29 code = 355) BLOOD UREA NITROGEN 18 mg/dL 7-21 (BEAKER) (test code = 354) CREATININE (BEAKER) 1.30 mg/dL 0.57-1.25 H (test code = 358) GLUCOSE RANDOM 118 mg/dL 70-105 H (BEAKER) (test code = 652) CALCIUM (BEAKER) 8.4 mg/dL 8.4-10.2 (test code = 697) EGFR (BEAKER) (test 59 mL/min/1.73 ESTIMA ESCOBAR GFR IS code = 1092) sq m NOT ACCURATE CREATININE CLEARANCE IN PREDICTING GLOMERULAR FILTRATION RATE . ESTIMATED GFR I S NOT APPLICABLE FOR DIALYSIS PATIEN TS. CBC W/PLT COUNT & AUTO [id number] 07:13:00 Test Item Value Reference Range Interpretation Comments WHITE BLOOD CELL COUNT (BEAKER) 9.0 K/ L 3.5-10.5 (test code = 775) RED BLOOD CELL COUNT (BEAKER) 4.64 M/ L 4.63-6.08 (test code = 761) HEMOGLOBIN (BEAKER) (test code = 11.6 GM/DL 13.7-17.5 L 410) HEMATOCRIT (BEAKER) (test code = 37.5 % 40.1-51.0 L 411) MEAN CORPUSCULAR VOLUME (BEAKER) 80.8 fL 79.0-92.2 (test code = 753) MEAN CORPUSCULAR HEMOGLOBIN 25.0 pg 25.7-32.2 L (BEAKER) (test code = 751) MEAN CORPUSCULAR HEMOGLOBIN CONC 30.9 GM/DL 32.3-36.5 L (BEAKER) (test code = 752) RED CELL DISTRIBUTION WIDTH 15.9 % 11.6-14.4 H (BEAKER) (test code = 412) PLATELET COUNT (BEAKER) (test 439 K/CU MM 150-450 code = 756) MEAN PLATELET VOLUME (BEAKER) 9.5 fL 9.4-12.4 (test code = 754) NUCLEATED RED BLOOD CELLS 0 /100 WBC 0-0 (BEAKER) (test code = 413) NEUTROPHILS RELATIVE PERCENT 57 % (BEAKER) (test code = 429) LYMPHOCYTES RELATIVE PERCENT 25 % (BEAKER) (test code = 430) MONOCYTES RELATIVE PERCENT 9 % (BEAKER) (test code = 431) EOSINOPHILS RELATIVE PERCENT 8 % (BEAKER) (test code = 432) BASOPHILS RELATIVE PERCENT 1 % (BEAKER) (test code = 437) NEUTROPHILS ABSOLUTE COUNT 5.11 K/ L 1.78-5.38 (BEAKER) (test code = 670) LYMPHOCYTES ABSOLUTE COUNT 2.22 K/ L 1.32-3.57 (BEAKER) (test code = 414) MONOCYTES ABSOLUTE COUNT (BEAKER) 0.83 K/ L 0.30-0.82 H (test code = 415) EOSINOPHILS ABSOLUTE COUNT 0.68 K/ L 0.04-0.54 H (BEAKER) (test code = 416) BASOPHILS ABSOLUTE COUNT (BEAKER) 0.08 K/ L 0.01-0.08 (test code = 417) IMMATURE GRANULOCYTES-RELATIVE 0 % 0-1 PERCENT (BEAKER) (test code = 2801) RAD, CHEST, 1 VIEW, NON [id number] 06:38:00Reason for exam:->pleural effusionShould this be performed at the bedside?->YesFINAL REPORT Chest one view. Clinical history: pleural effusion Comparison: Chest radiograph 03/20/2017, 5:51 PM. Technique: A single frontal view of the chest was obtained. Findings: There is moderate to severe CHF and bilateral pleural effusions. The heart is mildly enlarged. Theaorta is uncoiled. There is no pneumothorax. Impression:Moderate to severe CHF and bilateral pleuraleffusions. Superimposed bibasilar pneumonia cannot be excluded. Mild cardiomegaly. Signed: Fiorella Hidalgo MDReport Verified Date/Time: 03/21/2017 06:38:27 Reading Location: [address] Reading Room SOL [id number] 19:57:00 Test Item Value Reference Range Interpretation Comments TROPONIN I (BEAKER) (test code = 0.04 ng/mL 0.00-0.03 H 397) Troponin I (TnI) levels must be interpreted in the context of the presenting symptoms and the clinical findings. Elevated TnI levels indicate myocardial damage, but are not specific for ischemic heart disease. Elevated TnI levels are seen in patients with other cardiac conditions (including myocarditis and congestive heart failure), and slight TnI elevations occur in patients with other conditions, including sepsis, renal failure, acidosis, acute neurological disease, and persistent tachyarrhythmia.RAD, CHEST, 2 [id number] 17:59:00 Reason for exam:->abnormal CXR follow up, tachyFINAL REPORT PA and Lateral views of the chest dated 03/20/2017 COMPARISON: [facility] Clinical information: abnormal CXR follow up, tachy Comment: Heart is minimally enlarged. Pulmonary vasculature is unremarkable. There is trace right pleural effusion and small to moderate left pleural effusion. Subsegmental atelectasis is seen in both lung bases. The rest of the lungs are clear. IMPRESSION: Bilateral pleural effusion with bibasilar subsegmental atelectasis. Signed: Naeem Stricklandeport Verified Date/Time: 03/20/2017 17:59:49 Reading Location: [address] Consult Reading Room MR, MRA, BRAIN, WITHOUT [id number] 17:46:00FINAL REPORT MRI brain and neck and MRA head and neck without contrast 03/20/2017 5:38 PM CLINICAL INDICATION: Strokedissection protocol TECHNIQUE: Multiplanar MRI of the brain was performed utilizing the following imaging sequences: Axial T1, T2, FLAIR, GRE, and DWI; sagittal and coronal T1- weighted images. Multiplanar MRI of the neck was performed utilizing axial and coronal T2 and pre- and ufjz-uud-jcaqcxnyh T1 weighted imaging sequences. Two- and three-dimensional yiod-ul-laebwj MRA images of the intra- and extracranial carotid and vertebral arterial circulations were obtained, from which maximal intensity projection 3-D reconstructions were created. COMPARISON: None availab le FINDINGS: Patient motion limits these examinations. Pathology may be obscured MRI brain: There kezia small volume acute nonhemorrhagic infarct involving the right lateral frontal lobe and adjacent insular cortex and external capsule. There is no hematoma, mass, hydrocephalus, or extra-axial collection. There is mild chronic microvascular ischemia in the supratentorial white matter. The sellar and pineal regions, craniocervical junction, orbits, face, and skull base are unremarkable. MRI and MRA neck: There is no vessel occlusion, flow-limiting stenosis, or evident dissection. There is no NASCET-quantifiable cervical internal carotid artery stenosis. Flow is antegrade in both vertebral arteries. There are bilateral moderate volume pleural effusions. MRA [place]: There is no vessel occlusion or flow-limiting stenosis. IMPRESSION: 1. Motion limited examinations.2. 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 Mild chronic microvascular ischemia.4. Unremarkable intracranial and extracranial MRAs.5. No evidence for arterial dissection.6. Moderate volume bilateral pleural effusions. Signed: Janna Rivas MDReport Verified Date/Time: 03/20/2017 17:46:45 Reading Location: [facility] Reading Room MR, MRA, NECK, WITHOUT IV CONTRAST 2017-03-20 17:46:00FINAL REPORT MRI brain and neck and MRA head and neck without contrast 03/20/2017 5:38 PM CLINICAL INDICATION: Strokedissection protocol TECHNIQUE: Multiplanar MRI of the brain was performed utilizing the following imaging sequences: Axial T1, T2, FLAIR, GRE, and DWI; sagittal and coronal T1-weighted images. Multiplanar MRI of the neck was performed utilizing axial and coronal T2 and pre- and ubkq-phi-xllxcrspp T1 weighted imaging sequences. Two- and three-dimensional aymv-ug-rhftid MRA images of the intra- and extracranial carotid and vertebral arterial circulations were obtained, from which maximal intensity projection 3-D reconstructions were created. COMPARISON: None available FINDINGS: Patient motion limits these examinations. Pathology may be obscured MRI brain: There kezia small volume acute nonhemorrhagic infarct involving the right lateral frontal lobe and adjacent ins ular cortex and external capsule. There is no hematoma, mass, hydrocephalus, or extra-axial collection. There is mild chronic microvascular ischemia in the supratentorial white matter. The sellar and pineal regions, craniocervical junction, orbits, face, and skull base are unremarkable. MRI and MRA neck: There is no vessel occlusion, flow-limiting stenosis, or evident dissection. There is no NASCET-quantifiable cervical internal carotid artery stenosis. Flow is antegrade in both vertebral arteries. There are bilateral moderate volume pleural effusions. MRA [place]: There is no vessel occlusion or flow- limiting stenosis. IMPRESSION: 1. Motion limited examinations.2. 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 Mild chronic microvascular ischemia.4. Unremarkable intracranial and extracranial MRAs.5. No evidence for arterial dissection.6. Moderate volume bilateral pleural effusions. Signed: Janna Rivsa Verified Date/ Time: 03/20/2017 17:46:45 Reading Location: [facility] Reading Room MR, ORBIT, FACE, NECK, WITHOUT [id number] 17:46:00Reason for exam:- >dissection protocolFINAL REPORT MRI brain and neck and MRA head and neck without contrast 03/20/2017 5:38 PM CLINICAL INDICATION: Strokedissection protocol TECHNIQUE: Multiplanar MRI of the brain was performed utilizing the following imaging sequences: Axial T1, T2, FLAIR, GRE, and DWI; sagittal and coronal T1-weighted images. Multiplanar MRI of the neck was performed utilizing axial and coronal T2 and pre- and kjfc-tut-pqqjearoz T1 weighted imaging sequences. Two- and three-dimensional wfjb-lw-vwvcxi MRA images of the intra- and extracranial carotid and vertebral arterial circulations were obtained, from which maximal intensity projection 3-D reconstructions were created. COMPARISON: None available FINDINGS: Patient motion limits these examinations. Pathology may be obscured MRI brain: There kezia small volume acute nonhemorrhagic infarct involving the right lateral frontal lobe and adjacent ins ular cortex and external capsule. There is no hematoma, mass, hydrocephalus, or extra-axial collection. There is mild chronic microvascular ischemia in the supratentorial white matter. The sellar and pineal regions, craniocervical junction, orbits, face, and skull base are unremarkable. MRI and MRA neck: There is no vessel occlusion, flow-limiting stenosis, or evident dissection. There is no NASCET-quantifiable cervical internal carotid artery stenosis. Flow is antegrade in both vertebral arteries. There are bilateral moderate volume pleural effusions. MRA [place]: There is no vessel occlusion or flow- limiting stenosis. IMPRESSION: 1. Motion limited examinations.2. 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 Mild chronic microvascular ischemia.4. Unremarkable intracranial and extracranial MRAs.5. No evidence for arterial dissection.6. Moderate volume bilateral pleural effusions. Signed: Janna Rivas Verified Date/ Time: 03/20/2017 17:46:45 Reading Location: [facility] Reading Room MR, BRAIN, WITHOUT [id number] 17:46:00Dissection ProtocolFINAL REPORT MRI brain and neck and MRA head and neck without contrast 03/20/2017 5:38 PM CLINICAL INDICATION: Strokedissection protocol TECHNIQUE: Multiplanar MRI of the brain was performed utilizing the following imaging sequences: Axial T1, T2, FLAIR, GRE, and DWI; sagittal and coronal T1-weighted images. Multiplanar MRI of the neck was performed utilizing axial and coronal T2 and pre- and oqoh-tqn-alvncfyid T1 weighted imaging sequences. Two- and three- dimensional graw-mf-xwaeic MRA images of the intra- and extracranial carotid and vertebral arterial circulations were obtained, from which maximal intensity projection 3-D reconstructions were created. COMPARISON: None available FINDINGS: Patient motion limits these examinations. Pathology may be obscured MRI brain: There kezia small volume acute nonhemorrhagic infarct involving the right lateral frontal lobe and adjacent insular cortex and external capsule. There is no hematoma, mass, hydrocephalus, or extra-axial collection. There is mild chronic microvascular ischemia in the supratentorial white matter. The sellar and pineal regions, craniocervical junction, orbits, face, and skull base are unremarkable. MRI and MRA neck: There is no vessel occlusion, flow-limiting stenosis, or evident dissection. There is no NASCET-quantifiable cervical internal carotid artery stenosis. Flow is antegrade in both vertebral arteries. There are bilateral moderate volume pleural effusions. MRA [place]: There is no vessel occlusion or flow-limiting stenosis. IMPRESSION: 1. Motion limited examinations.2. 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 Mild chronic microvascular ischemia.4. Unremarkable intracranial and extracranial MRAs.5. No evidence for arterial dissection.6. Moderate volume bilateral pleural effusions. Signed: Janna Rivas MDReport Verified Date/Time: 03/20/2017 17:46:45 Reading Location: [facility] Reading Room B-TYPE NATRIURETIC FACTOR (BNP)2017-03-20 15:31:00 Test Item Value Reference Range Interpretation Comments B-TYPE NATRIURETIC PEPTIDE (BEAKER) 798 pg/mL 0-100 H (test code = 700) [id number] 15:16:00 Test Item Value Reference Range Interpretation Comments RPR SCREEN (BEAKER) (test code = Nonreactive Nonreactive 420) RAD, CHEST, 1 VIEW, NON [id number] 10:11:00Reason for exam:->coughShould this be performed at the bedside?->YesFINAL REPORT Chest one view INDICATION: Cough COMPARISON: None available IMPRESSION: There is pulmonary vascular congestion, interstitial reticulation, and lower lung airspace disease with dependent pleural effusions. This suggests edema and atelectasis but superimposed pneumonitis or aspiration cannot be excluded particularly at the bases. The enlarged cardiac silhouette is partially obscured. No acute osseous abnormality or pneumothorax is evident. Signed: Oneil GonsalesMDReport Verified Date/Time: 03/20/2017 10:11:25 Reading Location: [facility] Reading Room RAPID DRUG SCREEN, URINE 2017-03-20 09:05:00 Test Item Value Reference Range Interpretation Comments BARBITURATE URINE (BEAKER) (test Negative Negative code = 725) BENZODIAZEPINE SCREEN URINE (BEAKER) Negative Negative (test code = 726) COCAINE (METAB.) SCREEN (BEAKER) Negative Negative (test code = 1164) METHADONE SCREEN (BEAKER) (test code Negative Negative = 1436) OPIATE SCREEN URINE (BEAKER) (test Negative Negative code = 734) CANNABINOID SCREEN URINE (BEAKER) Negative Negative (test code = 727) AMPH/METHAMPH SCREEN (BEAKER) (test Negative Negative code = 1438) PHENCYCLIDINE SCREEN URINE (BEAKER) Negative Negative (test code = 608) OXYCODONE SCREEN URINE (BEAKER) Negative Negative (test code = 2761) DRUG CUTOFF CONC.Cocaine 300 ng/mL Cannabinoid 50 ng/mL Benzodiazepine 200 ng/mLBarbiturate 200 ng/mLPhencyclidine 25 ng/mLOpiate 300 ng/mLMethadone 300 ng/mLAmphetamine/ 1000 ng/mL MethamphetamineOxycodone 300 ng/mLThis assay provides an unconfirmed qualitative test result for the clinical managementof patients in emergency situations. Chain of custody not maintained. Some bwno-ylx-egnsybl medications, as well as adulterants, may cause inaccurate results. Clinical correlation should be applied. A more comprehensive drug screen or confirmation of a detected drug may be performed upon request.TROPONIN [id number] 09:00:00 Test Item Value Reference Range Interpretation Comments TROPONIN I (BEAKER) (test code = 0.05 ng/mL 0.00-0.03 H 397) Troponin I (TnI) levels must be interpreted in the context of the presenting symptoms and the clinical findings. Elevated TnI levels indicate myocardial damage, but are not specific for ischemic heart disease. Elevated TnI levels are seen in patients with other cardiac conditions (including myocarditis and congestive heart failure), and slight TnI elevations occur in patients with other conditions, including sepsis, renal failure, acidosis, acute neurological disease, and persistent tachyarrhythmia.TSH/FREE T4 IF [id number] 05:51:00 Test Item Value Reference Range Interpretation Comments THYROID STIMULATING HORMONE 3.57 uIU/mL 0.35-4.94 (BEAKER) (test code = 772) VITAMIN B12 AND [id number] 05:51:00 Test Item Value Reference Range Interpretation Comments VITAMIN B12 (BEAKER) (test code = 558 pg/mL 213-816 774) FOLATE (BEAKER) (test code = 362) 11.8 ng/mL >=7.0 BASIC METABOLIC [id number] 05:33:00 Test Item Value Reference Range Interpretation Comments SODIUM (BEAKER) 138 meq/L 136-145 (test code = 381) POTASSIUM (BEAKER) 4.0 meq/L 3.5-5.1 (test code = 379) CHLORIDE (BEAKER) 107 meq/L 98-107 (test code = 382) CO2 (BEAKER) (test 22 meq/L 22-29 code = 355) BLOOD UREA NITROGEN 21 mg/dL 7-21 (BEAKER) (test code = 354) CREATININE (BEAKER) 1.24 mg/dL 0.57-1.25 (test code = 358) GLUCOSE RANDOM 113 mg/dL 70-105 H (BEAKER) (test code = 652) CALCIUM (BEAKER) 8.3 mg/dL 8.4-10.2 L (test code = 697) EGFR (BEAKER) (test mL/min/1.73 INSUFFIC IENT CLINICAL code = 1092) sq m DATA TO CALCULA TE ESTIMATED GFR. [id number] 05:30:00 Test Item Value Reference Range Interpretation Comments PHOSPHORUS (BEAKER) (test code = 3.4 mg/dL 2.3-4.7 604) [id number] 05:30:00 Test Item Value Reference Range Interpretation Comments MAGNESIUM (BEAKER) (test code = 1.4 mg/dL 1.6-2.6 L 627) TROPONIN [id number] 05:24:00 Test Item Value Reference Range Interpretation Comments TROPONIN I (BEAKER) (test code = 0.05 ng/mL 0.00-0.03 H 397) Troponin I (TnI) levels must be interpreted in the context of the presenting symptoms and the clinical findings. Elevated TnI levels indicate myocardial damage, but are not specific for ischemic heart disease. Elevated TnI levels are seen in patients with other cardiac conditions (including myocarditis and congestive heart failure), and slight TnI elevations occur in patients with other conditions, including sepsis, renal failure, acidosis, acute neurological disease, and persistent tachyarrhythmia.FastingLIPID [id number] 05:20:00 Test Item Value Reference Range Interpretation Comments TRIGLYCERIDES (BEAKER) (test code = 212 mg/dL 540) CHOLESTEROL (BEAKER) (test code = 289 mg/dL 631) HDL CHOLESTEROL (BEAKER) (test code 37 mg/dL = 976) LDL CHOLESTEROL CALCULATED (BEAKER) 210 mg/dL (test code = 633) Triglyceride Reference Range: Low Risk <150 Borderline 150-199 High Risk 200- 499 Very High Risk >=500Cholesterol Reference Range: Low Risk <200 Borderline 200-239 High Risk >240HDL Cholesterol Reference Range: Low Risk >=60 High Risk <40LDL Cholesterol Reference Range: Optimal <100 Near Optimal 100-129 Borderline 130-159 High 160-189 Very High >=190 FastingCBC W/PLT COUNT & AUTO [id number] 04:51:00 Test Item Value Reference Range Interpretation Comments WHITE BLOOD CELL COUNT (BEAKER) 9.7 K/ L 3.5-10.5 (test code = 775) RED BLOOD CELL COUNT (BEAKER) 4.60 M/ L 4.63-6.08 L (test code = 761) HEMOGLOBIN (BEAKER) (test code = 11.3 GM/DL 13.7-17.5 L 410) HEMATOCRIT (BEAKER) (test code = 36.6 % 40.1-51.0 L 411) MEAN CORPUSCULAR VOLUME (BEAKER) 79.6 fL 79.0-92.2 (test code = 753) MEAN CORPUSCULAR HEMOGLOBIN 24.6 pg 25.7-32.2 L (BEAKER) (test code = 751) MEAN CORPUSCULAR HEMOGLOBIN CONC 30.9 GM/DL 32.3-36.5 L (BEAKER) (test code = 752) RED CELL DISTRIBUTION WIDTH 15.5 % 11.6-14.4 H (BEAKER) (test code = 412) PLATELET COUNT (BEAKER) (test 429 K/CU MM 150-450 code = 756) MEAN PLATELET VOLUME (BEAKER) 9.4 fL 9.4-12.4 (test code = 754) NUCLEATED RED BLOOD CELLS 0 /100 WBC 0-0 (BEAKER) (test code = 413) NEUTROPHILS RELATIVE PERCENT 62 % (BEAKER) (test code = 429) LYMPHOCYTES RELATIVE PERCENT 23 % (BEAKER) (test code = 430) MONOCYTES RELATIVE PERCENT 8 % (BEAKER) (test code = 431) EOSINOPHILS RELATIVE PERCENT 5 % (BEAKER) (test code = 432) BASOPHILS RELATIVE PERCENT 1 % (BEAKER) (test code = 437) NEUTROPHILS ABSOLUTE COUNT 6.06 K/ L 1.78-5.38 H (BEAKER) (test code = 670) LYMPHOCYTES ABSOLUTE COUNT 2.25 K/ L 1.32-3.57 (BEAKER) (test code = 414) MONOCYTES ABSOLUTE COUNT (BEAKER) 0.79 K/ L 0.30-0.82 (test code = 415) EOSINOPHILS ABSOLUTE COUNT 0.51 K/ L 0.04-0.54 (BEAKER) (test code = 416) BASOPHILS ABSOLUTE COUNT (BEAKER) 0.08 K/ L 0.01-0.08 (test code = 417) IMMATURE GRANULOCYTES-RELATIVE 0 % 0-1 PERCENT (BEAKER) (test code = 2801) HEMOGLOBIN [id number] 03:51:00 Test Item Value Reference Range Interpretation Comments HEMOGLOBIN A1C (BEAKER) (test code = 7.1 % 4.3-6.1 H 368) [id number] 20:57:00 Test Item Value Reference Range Interpretation Comments HOMOCYSTEINE (BEAKER) (test code = 9.4 umol/L 5.1-15.4 642) CREATINE KINASE (CK), TOTAL AND [id number] 20:42:00 Test Item Value Reference Range Interpretation Comments CREATINE KINASE TOTAL (BEAKER) 478 U/L 29-200 H (test code = 380) CREATINE KINASE-MB (BEAKER) (test 3.5 ng/mL 0.0-6.6 code = 750) CREATINE KINASE-MB INDEX (BEAKER) 0.7 % (test code = 395) CK-MB Reference Range:<6.7 Normal6.7-10.0 Borderline>10.0 AbnormalBASIC METABOLIC [id number] 20:40:00 Test Item Value Reference Range Interpretation Comments SODIUM (BEAKER) 135 meq/L 136-145 L (test code = 381) POTASSIUM (BEAKER) 3.9 meq/L 3.5-5.1 (test code = 379) CHLORIDE (BEAKER) 105 meq/L 98-107 (test code = 382) CO2 (BEAKER) (test 22 meq/L 22-29 code = 355) BLOOD UREA NITROGEN 22 mg/dL 7-21 H (BEAKER) (test code = 354) CREATININE (BEAKER) 1.38 mg/dL 0.57-1.25 H (test code = 358) GLUCOSE RANDOM 140 mg/dL 70-105 H (BEAKER) (test code = 652) CALCIUM (BEAKER) 8.0 mg/dL 8.4-10.2 L (test code = 697) EGFR (BEAKER) (test mL/min/1.73 INSUFFIC IENT CLINICAL code = 1092) sq m DATA TO CALCULA TE ESTIMATED GFR. CBC W/PLT COUNT & AUTO [id number] 20:31:00 Test Item Value Reference Range Interpretation Comments WHITE BLOOD CELL COUNT (BEAKER) 11.5 K/ L 3.5-10.5 H (test code = 775) RED BLOOD CELL COUNT (BEAKER) 4.42 M/ L 4.63-6.08 L (test code = 761) HEMOGLOBIN (BEAKER) (test code = 10.8 GM/DL 13.7-17.5 L 410) HEMATOCRIT (BEAKER) (test code = 35.3 % 40.1-51.0 L 411) MEAN CORPUSCULAR VOLUME (BEAKER) 79.9 fL 79.0-92.2 (test code = 753) MEAN CORPUSCULAR HEMOGLOBIN 24.4 pg 25.7-32.2 L (BEAKER) (test code = 751) MEAN CORPUSCULAR HEMOGLOBIN CONC 30.6 GM/DL 32.3-36.5 L (BEAKER) (test code = 752) RED CELL DISTRIBUTION WIDTH 15.5 % 11.6-14.4 H (BEAKER) (test code = 412) PLATELET COUNT (BEAKER) (test 433 K/CU MM 150-450 code = 756) MEAN PLATELET VOLUME (BEAKER) 9.4 fL 9.4-12.4 (test code = 754) NUCLEATED RED BLOOD CELLS 0 /100 WBC 0-0 (BEAKER) (test code = 413) NEUTROPHILS RELATIVE PERCENT 72 % (BEAKER) (test code = 429) LYMPHOCYTES RELATIVE PERCENT 16 % (BEAKER) (test code = 430) MONOCYTES RELATIVE PERCENT 7 % (BEAKER) (test code = 431) EOSINOPHILS RELATIVE PERCENT 5 % (BEAKER) (test code = 432) BASOPHILS RELATIVE PERCENT 1 % (BEAKER) (test code = 437) NEUTROPHILS ABSOLUTE COUNT 8.28 K/ L 1.78-5.38 H (BEAKER) (test code = 670) LYMPHOCYTES ABSOLUTE COUNT 1.80 K/ L 1.32-3.57 (BEAKER) (test code = 414) MONOCYTES ABSOLUTE COUNT (BEAKER) 0.75 K/ L 0.30-0.82 (test code = 415) EOSINOPHILS ABSOLUTE COUNT 0.52 K/ L 0.04-0.54 (BEAKER) (test code = 416) BASOPHILS ABSOLUTE COUNT (BEAKER) 0.08 K/ L 0.01-0.08 (test code = 417) IMMATURE GRANULOCYTES-RELATIVE 0 % 0-1 PERCENT (BEAKER) (test code = 2801)"
[2022-03-16] MEDS ORDERED: NA CHLORIDE 0.9% 1,000 ML ONE ×2 (09:53→12:24)
[2022-03-16] MEDS ORDERED: ONDANSETRON 4 MG/2 ML VIAL ONE ×2 (10:15→12:57)
--- NOTE | 2022-03-16 10:22 | RAD REPORT ---
EXAM DESCRIPTION: CT - Head Brain Wo Cont - 03/16/2022 10:07 am CLINICAL HISTORY: Alteration of awareness/confusion COMPARISON: 2018 TECHNIQUE: Computed axial tomography of the head was obtained. IV contrast was not requested. All CT scans are performed using dose optimization technique as appropriate and may include automated exposure control or mA/KV adjustment according to patient size. FINDINGS: An intracranial bleed is not seen . The ventricles are normal in caliber. No extra-axial fluid collection is noted. 5 centimeter low-density area has developed within the right frontal lobe. Fluid within the sinuses/ mastoids is not seen. IMPRESSION: 5 centimeter low-density area within the right frontal lobe probably an acute or subacut e infarction. MRI would be helpful for further evaluation
--- NOTE | 2022-03-16 10:36 | RAD REPORT ---
EXAM DESCRIPTION: CT - Abdomen Pelvis Wo Contrast - 03/16/2022 10:07 am CLINICAL HISTORY: Abdominal pain colon cancer COMPARISON: None TECHNIQUE: Computed axial tomography of the abdomen and pelvis was obtained. IV and oral contrast we re not requested. All CT scans are performed using dose optimization technique as appropriate and may include automated exposure control or mA/KV adjustment according to patient size. FINDINGS: The evaluation of solid organs, vessels and bowel is limited secondary to the lack of con trast administration. Several low-density areas liver. Largest left lobe measuring 7 centimeters. Mild dilatation of adjace nt intrahepatic bile ducts. Spleen, pancreas grossly normal. Left kidney absent. 12 millimeter calculus right kidney. It is nonobstructing. Mild right hydronephrosis. Ureteral calcul us not clearly seen. Right upper quadrant ostomy with Gloria's pouch. No obstruction. Prominence right adrenal gland No ascites. Possible small gallstones. No gallbladder wall thickening. Metallic structures upper abdo men may represent vascular coils IMPRESSION: No bowel obstruction Postsurgical changes Low-density areas within the liver presumably metastases. Mild right hydronephrosis. Right ureteral calculus is not clearly seen
[2022-03-16 10:50] LABS: Absolute Lymphocytes (CBC) 0.6 K/uL (0.7-4.9); Hematocrit 32.7 % (39.6-49.0); Lymphocytes % 10.6 % (15.3-44.8); MCV 84.9 fL (80-100); MPV 7.5 fL (7.6-11.3); RBC Red Blood Cell Count 3.86 M/uL (4.33-5.43)
--- NOTE | 2022-03-16 10:50 | RAD REPORT ---
EXAM DESCRIPTION: Jennifer Single View03/16/2022 9:47 am CLINICAL HISTORY: Colon cancer COMPARISON: 2018 FINDINGS: The lungs appear clear of acute infiltrate. The heart is normal size. Central venous cath eter in place nuclear monitoring technician overlies the left chest IMPRESSION: No acute abnormalities displayed
[2022-03-16 10:56] LABS: Protime INR 1.05
[2022-03-16 10:58] LABS: Urine Blood 1+ (Negative); Urine Glucose 1+ (Negative); Urine Protein 3+ (Negative); Urine Specific Gravity >=1.030 (1.005-1.030); Urine pH 5.5 (5.0-7.0)
[2022-03-16 11:11] LABS: ALT/SGPT 26 U/L (16-61); AST/SGOT 17 U/L (15-37); Alkaline Phosphatase 113 U/L (45-117); BUN Blood Urea Nitrogen 97 mg/dL (7-18); Bicarbonate 15 mmol/L (21-32); Bilirubin Total 0.2 mg/dL (0.2-1.0); Creatine Phosphokinase 73 U/L (39-308); Glomerular Filtration Rate 13 ml/min (=/>90); Glucose Level 285 mg/dL (74-106); Sodium Level 134 mmol/L (136-145); Troponin High Sensitivity 46.1 pg/mL (<58.9)
[2022-03-16 11:16] LABS: Potassium 5.9 mmol/L (3.5-5.1)
[2022-03-16 11:22] LABS: Urine Bacteria None Seen /HPF (<20); Urine Mucus Slight /HPF (None Seen); Urine Sperm Present (None Seen)
[2022-03-16 11:24] LABS: Barbiturates NEGATIVE (NEGATIVE); Benzodiazepines NEGATIVE (NEGATIVE); Cocaine NEGATIVE (NEGATIVE); METHAMPHETAM NEGATIVE (NEGATIVE); Methadone NEGATIVE (NEGATIVE); Opiates NEGATIVE (NEGATIVE); Phencyclidine NEGATIVE (NEGATIVE); THC Cannibis NEGATIVE (NEGATIVE)
[2022-03-16 11:43] LABS: Arterial Blood Carboxyhemoglob 1.2 % (0-1.5); Blood Gas Oxyhemoglobin 93.5 % (94-97)
[2022-03-16] MEDS ORDERED: PROMETHAZINE INJ 25 MG/ML AMP ONE (11:47)
--- NOTE | 2022-03-16 12:04 | ER ---
Nurse's Notes [facility] Name: Juan Abraham Age: 51 yrs Sex: Male : 1970 Arrival Date: 03/16/2022 Time: 09:10 Bed External Waiting Private MD: Diagnosis: Metabolic Acidosis;Acute renal failure;Acute CVA;Intractable nausea and vomiting Presentation: 03/16 09:39 Chief complaint: EMS states: client started chemotherapy yesterday for colon cancer and kc6 started with AMS since last night. room mate called this morning stating increased AMS with busted colostomy bag. BGL en route 291. Coronavirus screen: At this time, the client does not indicate any symptoms associated with coronavirus-19. Ebola Screen: No symptoms or risks identified at this time. Initial Sepsis Screen: Does the patient meet any 2 criteria? Altered Mental Status. No. Patient's initial sepsis screen is negative. Does the patient have a suspected source of infection? No. Patient's initial sepsis screen is negative. Risk Assessment: Do you want to hurt yourself or someone else? Patient reports no desire to harm self or others. Onset of symptoms was March 16, 2022. 09:39 Method Of Arrival: EMS: [facility] kc6 09:39 Acuity: RADHA 2 kc6 Triage Assessment: 09:42 General: Appears in no apparent distress. uncomfortable, ill, unkempt, Behavior is kc6 drowsy, inappropriate for age. Pain: Unable to use pain scale. Patient is disoriented. Does not appear to understand pain scale. EENT: No signs and/or symptoms were reported regarding the EENT system. Neuro: Hernandez Agitation-Sedation Scale (RASS): -1 Drowsy Level of Consciousness is confused, lethargic, Oriented to none. Cardiovascular: Heart tones S1 S2 present Capillary refill < 3 seconds. Respiratory: Airway is patent Trachea midline Respiratory effort is even, unlabored, Respiratory pattern is regular, symmetrical, Breath sounds are clear bilaterally. GI: Abdomen is flat, non-distended, Pt is actively vomiting bile, Ileostomy site is intact. Bowel sounds present X 4 quads. Abd is soft in right upper quadrant, left upper quadrant and left lower quadrant Abd is non tender in right upper quadrant, left upper quadrant and left lower quadrant. : No signs and/or symptoms were reported regarding the genitourinary system. Derm: No signs and/or symptoms reported regarding the dermatologic system. Skin is intact, Skin is dry, Skin is pale, Skin temperature is warm. Musculoskeletal: No signs and/or symptoms reported regarding the musculoskeletal system. Circulation, motion, and sensation intact. Capillary refill < 3 seconds, Range of motion: intact in all extremities. Historical: - Allergies: :42 No Known Allergies; kc6 - Home Meds: :42 Unable to obtain [Active]; kc6 - PMHx: :42 BACTERIAL PNEUMONIA; Hypertension; Kidney stones; Diabetes mellitus; liver cancer; kc6 colon cancer; - PSHx: :42 ileostomy; kc6 - Immunization history:: Adult Immunizations unknown. - Social history:: Smoking status: unknown. Screenin:46 [facility] ED Fall Risk Assessment (Adult) History of falling in the last 3 months, kc6 including since admission No falls in past 3 months (0 pts) Confusion or Disorientation Yes (5 pts) Intoxicated or Sedated No (0 pts) Impaired Gait No (0 pts) Mobility Assist Device Used No (0 pt) Altered Elimination Yes (1 pt) Score/Fall Risk Level 3 or more points = High Risk Oriented to surroundings, Maintained a safe environment, Educated pt \\T\\ family on fall prevention, incl call for assistance when getting out of bed, Assessed \\T\\ reinforced patient's understanding of fall precautions, Provided non-skid footwear, Hourly rounding (assess needs \\T\\ fall precautionary measures) done. Abuse screen: Denies threats or abuse. Denies injuries from another. Nutritional screening: No deficits noted. Tuberculosis screening: No symptoms or risk factors identified. Assessment: 09:46 Reassessment: please see triage assessment. kc6 10:46 Reassessment: Patient appears in no apparent distress at this time. No changes from 6 previously documented assessment. Patient and/or family updated on plan of care and expected duration. Pain level reassessed. alert and oriented x0, easily aroused and responds to painful stimuli. respirations equal and unlabored. 11:46 Reassessment: Patient appears in no apparent distress at this time. No changes from [facility] previously documented assessment. Patient and/or family updated on plan of care and expected duration. Pain level reassessed. 12:01 Reassessment: called MRI to inform them client is ready to go. stated it would be over kc6 an hour before they could come due to "taking care of out patients." provider notified. 13:01 Reassessment: Patient appears in no apparent distress at this time. No changes from kc6 previously documented assessment. Patient and/or family updated on plan of care and expected duration. Pain level reassessed. 13:40 Reassessment: Criticore Kumari removed, pt transported to MRI via stretcher at this time.jl7 14:01 Reassessment: Patient appears in no apparent distress at this time. No changes from kc6 previously documented assessment. Patient and/or family updated on plan of care and expected duration. Pain level reassessed. Vital Signs: 09:39 BP 180 / 100; Pulse 74; Resp 12 S; Pulse Ox 99% on R/A; kc6 10:57 BP 148 / 96; Pulse 88; Resp 12 S; Temp 97.0(C); Pulse Ox 100% on R/A; kc6 12:02 BP 184 / 86; Pulse 103; Resp 15 S; Temp 97.3(C); Pulse Ox 100% on R/A; kc6 13:02 BP 155 / 82; Pulse 94; Resp 12 S; Temp 97.8(C); Pulse Ox 99% on R/A; kc6 13:23 BP 155 / 82; Pulse 103; Resp 16; Temp 98.2(C); Pulse Ox 99% ; ap3 14:23 BP 173 / 91; Pulse 92; Resp 15 S; Pulse Ox 100% on R/A; kc6 Felipe Coma Score: 09:15 Eye Response: to voice(3). Verbal Response: none(1). Motor Response: localizes pain(5). 7 Total: 9. NIH Stroke Scale Scores: 09:15 NIHSS Score: 14 [facility] ED Course: 09:10 Patient arrived in ED. jl7 09:14 Concepcion Tarango [facility] jh[facility] 09:14 Brigido Cboos MD is Attending Physician. jh7 09:39 Leatha Ruth, JORDEN is Primary Nurse. kc6 09:42 Triage completed. kc6 09:49 Chest Single View XRAY In Process Unspecified. EDMS 09:57 Stool Culture Sent. kc6 10:02 Arm band placed on. kc6 10:02 Patient has correct armband on for positive identification. Placed in gown. Bed in low kc6 position. Call light in reach. Side rails up X2. 10:09 CT Head Brain wo Cont In Process Unspecified. EDMS 10:09 Abdomen In Process Unspecified. EDMS 10:30 Inserted saline lock: 20 gauge in right antecubital area, using aseptic technique. kc6 ,using aseptic technique. inserted by Jorden Jordan Blood collected. 10:49 Kumari cath inserted, using sterile technique, 18 Fr., by ED staff, balloon inflated, to kc6 gravity drainage, clamped. urine specimen collected. other inserted by JORDEN Salazar. 12:55 Inserted saline lock: 22 gauge in left antecubital area, using aseptic technique. vg1 ,using aseptic technique. COMPLETED BY ANNETTE LEONARDO Blood collected. 15:11 No provider procedures requiring assistance completed. Patient transferred, IV remains kc6 in place. 15:50 Kumari cath inserted, using sterile technique, 16 Fr., by ED staff, balloon inflated, to kc6 gravity drainage, clamped. other inserted by Yvonne. Administered Medications: 10:54 Drug: NS 0.9% 1000 ml Route: IV; Rate: 1 bolus; Site: right antecubital; kc6 13:44 Follow up: Response: No adverse reaction; IV Status: Completed infusion; IV Intake: kc6 1000ml 10:54 Drug: Zofran (Ondansetron) 4 mg Route: IVP; Site: right antecubital; kc6 11:54 Follow up: Response: No adverse reaction; Nausea is decreased; Vomiting decreased kc6 11:49 Drug: Phenergan (promethazine) 25 mg Route: IVP; Site: right antecubital; kc6 12:49 Follow up: Response: No adverse reaction; Nausea is decreased; Vomiting decreased kc6 13:00 Drug: Zofran (Ondansetron) 4 mg Route: IVP; Site: right antecubital; kc6 14:58 Follow up: Response: No adverse reaction; Marked relief of symptoms vg1 14:02 Drug: NS 0.9% 1000 ml Route: IV; Rate: 1 bolus; Site: right antecubital; vg1 15:52 Follow up: IV Status: Infusion continued upon transfer kc6 14:05 Drug: D5W 1000 ml, Sodium Bicarbonate 150 mEq Route: IV; Rate: 125 ml/hr; Site: right vg1 antecubital; 15:52 Follow up: IV Status: Infusion continued upon transfer kc6 14:11 Drug: Cefepime 1 grams Route: IVPB; Rate: 200 ml/hr; Infused Over: 30 mins; Site: left vg1 antecubital; 14:44 Follow up: IV Status: Completed infusion; IV Intake: 100ml vg1 14:52 Drug: vancoMYCIN 1 grams Route: IVPB; Infused Over: 2 hrs; Site: left antecubital; vg1 15:52 Follow up: IV Status: Infusion continued upon transfer kc6 14:55 Drug: Calcium Gluconate 1 grams Route: IVPB; Infused Over: 60 mins; Site: left vg1 antecubital; 15:51 Follow up: Response: No adverse reaction; IV Status: Completed infusion; IV Intake: kc6 100ml Medication: 15:52 VIS not applicable for this client. kc6 Intake: 13:44 IV: 1000ml; Total: 1000ml. kc6 14:44 IV: 100ml; Total: 1100ml. vg1 15:51 IV: 100ml; Total: 1200ml. kc6 Outcome: 12:04 ER care complete, transfer ordered by MD. august 15:11 Transferred by ground EMS to [facility], Transfer form kc6 completed. Note: report called to JORDEN Monge 15:11 Condition: stable 15:11 Instructed on the need for admit. 16:35 Patient left the ED. kc6 NIH Stroke Scale - NIH Stroke Score Date: 03/16/2022 Time: 09:15 Total Score = 14 1a. Level of Consciousness (LOC) - 1(Not Alert) 1b. Level of Consciousness (LOC) (Month \\T\\ Age) - 2(Neither) 1c. LOC Commands (Open \\T\\ Closes Eyes/Loan Servicing Representative) - 0(Both) 2. Best Gaze (Lateral Gaze Paresis) - 0(Normal) 3. Visual Field Loss - 0(No visual loss) 4. Facial Palsy - 0(Normal) 5a. Left Arm: Motor (10-second hold) - 2(Drift, some effort against gravity) 5b. Right Arm: Motor (10-second hold) - 2(Drift, some effort against gravity) 6a. Left Leg: Motor (5-second hold - always test supine) - 2(Drift, some effort against gravity) 6b. Right Leg: Motor (5-second hold - always test supine) - 2(Drift, some effort against gravity) 7. Limb Ataxia (finger/nose \\T\\ heel/evangelista - test with eyes open) - 0(Absent) 8. Sensory Loss (pinprick arms/legs/face) - 0(Normal) 9. Best Language: Aphasia (description/naming/reading) - 3(Mute, global aphasia) 10. Dysarthria (speech clarity - read or repeat words) - 0(Normal) 11. Extinction and Inattention (visual/tactile/auditory/spatial/personal) - 0(No abnormality) Initials: [facility] Signatures: Dispatcher [employer] Franklyn Desai, RN RN jl7 Annette Hooks RN RN ap3 Nancy Julio, RN RN vg1 Concepcion Tarango, CALCINE FURNACE TENDER CALCINE FURNACE TENDER jh7 Leatha Ruth, RN RN kc6
--- NOTE | 2022-03-16 12:04 | EDPHYS ---
Physician Documentation [facility] Name: Juan Abraham Age: 51 yrs Sex: Male : 1970 Arrival Date: 03/16/2022 Time: 09:10 Bed External Waiting Private MD: ARIANNA Physician Brigido Cobos HPI: 03/16 09:15 This 51 yrs old Male presents to ER via EMS with complaints of Altered Mental Status. jh7 09:15 The patient presents with decreased mental status, decreased responsiveness. Onset: The jh7 symptoms/episode began/occurred 1 day(s) ago. Possible causes: unknown. Associated signs and symptoms: Pertinent positives: confusion. Patient's baseline: The patient has a previous history of Colon and liver cancer. 51-year-old male presents to the ER with decreased responsiveness/AMS. The patient's roommate informed EMS that he noticed that the patient had been altered since yesterday which worsened today. Reports that he started chemo yesterday. History of both liver and colon CA. Also reports a history of hypertension and diabetes. Patient has a port to the left upper chest and an ileostomy to the right lower quadrant of the abdomen. EMS reports that the patient will open his eyes but will not speak.. Historical: - Allergies: 09:42 No Known Allergies; kc6 - Home Meds: 09:42 Unable to obtain [Active]; kc6 - PMHx: 09:42 BACTERIAL PNEUMONIA; Hypertension; Kidney stones; Diabetes mellitus; liver cancer; kc6 colon cancer; - PSHx: 09:42 ileostomy; kc6 - Immunization history:: Adult Immunizations unknown. - Social history:: Smoking status: unknown. ROS: 09:15 Constitutional: Negative for fever, chills, and weight loss, Eyes: Negative for injury, jh7 pain, redness, and discharge, Neck: Negative for injury, pain, and swelling, Cardiovascular: Negative for chest pain, palpitations, and edema, Respiratory: Negative for shortness of breath, cough, wheezing, and pleuritic chest pain. 09:15 Back: Negative for injury and pain. 09:15 Abdomen/GI: Positive for 09:15 Abdomen/GI: Positive for Ileostomy. 09:15 MS/extremity: 09:15 Skin: Positive for pallor. 09:15 Neuro: Positive for altered mental status, weakness, Negative for seizure activity. 09:15 All other systems are negative. Exam: 09:15 ENT: Nares patent. No nasal discharge, no septal abnormalities noted. Tympanic jh7 membranes are normal and external auditory canals are clear. Oropharynx with no redness, swelling, or masses, exudates, or evidence of obstruction, uvula midline. Mucous membranes moist. Neck: Trachea midline, no thyromegaly or masses palpated, and no cervical lymphadenopathy. Supple, full range of motion without nuchal rigidity, or vertebral point tenderness. No Meningismus. Cardiovascular: Regular rate and rhythm with a normal S1 and S2. No gallops, murmurs, or rubs. Normal PMI, no JVD. No pulse deficits. Respiratory: Lungs have equal breath sounds bilaterally, clear to auscultation and percussion. No rales, rhonchi or wheezes noted. No increased work of breathing, no retractions or nasal flaring. Back: No spinal tenderness. No costovertebral tenderness. Full range of motion. 09:15 Constitutional: The patient appears lethargic, pale. 09:15 Abdomen/GI: Inspection: Stoma present in the right lower quadrant. Stoma appears inflamed and there is green mucus present in the stool., Bowel sounds: normal, in all quadrants, Palpation: abdomen is soft and non-tender. 09:15 Skin: Appearance: Color: pale, Temperature: cool. 09:15 Neuro: Orientation: unable to test, Patient nonverbal at this time. Vital Signs: 09:39 BP 180 / 100; Pulse 74; Resp 12 S; Pulse Ox 99% on R/A; kc6 10:57 BP 148 / 96; Pulse 88; Resp 12 S; Temp 97.0(C); Pulse Ox 100% on R/A; kc6 12:02 BP 184 / 86; Pulse 103; Resp 15 S; Temp 97.3(C); Pulse Ox 100% on R/A; kc6 13:02 BP 155 / 82; Pulse 94; Resp 12 S; Temp 97.8(C); Pulse Ox 99% on R/A; kc6 13:23 BP 155 / 82; Pulse 103; Resp 16; Temp 98.2(C); Pulse Ox 99% ; ap3 14:23 BP 173 / 91; Pulse 92; Resp 15 S; Pulse Ox 100% on R/A; kc6 NIH Stroke Scale Scores: 09:15 NIHSS Score: 14 jh7 [place] Score: 09:15 Eye Response: to voice(3). Verbal Response: none(1). Motor Response: localizes pain(5). [facility] Total: 9. MDM: 09:14 Patient medically screened. [facility] 13:30 ED course: MRI reports that the patient was unable to tolerate the MRI due to vomiting [facility] when lying flat.. 14:20 Differential Diagnosis: CVA, electrolyte abnormality, alcohol intoxication, jh7 hypoglycemia, intracranial bleed, meningitis, pneumonia, sepsis, UTI, volume depletion. Data reviewed: vital signs, nurses notes, lab test result(s), EKG, radiologic studies, CT scan, plain films. Consideration of Admission/Observation Patient was admitted/placed on observation. Will be transferred to [facility] due to ICU capacity and continuity of care. Management of patient was discussed with the following: Hospitalist: Pulmonary parking lot spotter, Yohan Wallace. I considered the following discharge prescriptions or medication management in the emergency department Medications were administered in the Emergency Department. See MAR. Independent interpretation of the following test(s) in the Emergency Department EKG: See my EKG interpretation above X-Ray: My interpretation is Chest x-ray. Historians other than the Patient: EMS: EMS. Care significantly affected by the following chronic conditions: Diabetes, Hypertension, Cancer. Counseling: I had a detailed discussion with the patient and/or guardian regarding: the historical points, exam findings, and any diagnostic results supporting the discharge/admit diagnosis, the need to transfer to another facility, for higher level of care, Need for ICU bed. 03/16 09:22 Order name: Blood Culture Adult (2) [facility] 03/16 09:22 Order name: CBC with Diff; Complete Time: 11:16 [facility] 03/16 09:22 Order name: CMP; Complete Time: 11: [facility] 03/16 09:22 Order name: Lactate w/ 2H reflex if indic.; Complete Time: 11:16 [facility] 03/16 09:22 Order name: Protime (+inr); Complete Time: 11:16 [facility] 03/16 09:22 Order name: Ptt, Activated; Complete Time: 11: [facility] 03/16 09:22 Order name: Urine Microscopic Only; Complete Time: :26 [facility] 03/16 09:22 Order name: Troponin High Sensitivity; Complete Time: 11:26 [facility] 03/16 09:22 Order name: CK; Complete Time: 11:26 [facility] 03/16 09:22 Order name: AMMONIA; Complete Time: 11:16 [facility] 03/16 09:23 Order name: Urine Drug Screen; Complete Time: 11:26 [facility] 03/16 09:23 Order name: Acetaminophen; Complete Time: 11:26 [facility] 03/16 09:22 Order name: Chest Single View XRAY; Complete Time: 11:16 [facility] 03/16 09:22 Order name: CT Head Brain wo Cont; Complete Time: 10:29 [facility] 03/16 09:46 Order name: Stool Culture [facility] 03/16 10:04 Order name: Abdomen ; Complete Time: 10:49 [facility] 03/16 10:19 Order name: CREATININE WHOLE BLOOD; Complete Time: 10:29 [facility] 03/16 10:21 Order name: CREATININE WHOLE BLOOD [facility] 03/16 10:58 Order name: Urine Dipstick-Ancillary; Complete Time: 11:16 [facility] 03/16 11:26 Order name: ABG; Complete Time: 15:41 [facility] 03/16 13:37 Interpretation: Abnormal: pH 7.267 PCO2 32.0 PO2 93.4 hco3 14.1. [facility] 03/16 12:55 Order name: SARS RAPID; Complete Time: 13:43 [facility] 03/16 09:13 Order name: Misc. Order: colostomy bag; Complete Time: 12:00 [facility] 03/16 09:22 Order name: EKG; Complete Time: 09:23 [facility] 03/16 09:22 Order name: Accucheck; Complete Time: 11:39 [facility] 03/16 09:22 Order name: Cardiac monitoring; Complete Time: 09:38 [facility] 03/16 09:22 Order name: EKG - Nurse/Tech; Complete Time: 11:50 [facility] 03/16 09:22 Order name: IV Saline Lock - Large Bore; Complete Time: 10:54 [facility] 03/16 09:22 Order name: Labs collected and sent; Complete Time: 10:54 [facility] 03/16 09:22 Order name: O2 Per Protocol; Complete Time: 09:38 [facility] 03/16 09:22 Order name: O2 Sat Monitoring; Complete Time: 09:38 [facility] 03/16 09:22 Order name: Urine Dipstick-Ancillary (obtain specimen); Complete Time: 10:57 7 03/16 09:22 Order name: Vital Signs; Complete Time: : 7 EC:45 Rate is 80 beats/min. Rhythm is regular. QRS [place] is Normal. [place] interval is normal at jh7 146 msec. QRS interval is normal at 92 msec. QT interval is normal at 394 msec. No Q waves. T waves are Normal. Clinical impression: NSR w/ Non-specific ST/T Changes. Administered Medications: 10:54 Drug: NS 0.9% 1000 ml Route: IV; Rate: 1 bolus; Site: right antecubital; 6 13:44 Follow up: Response: No adverse reaction; IV Status: Completed infusion; IV Intake: kc6 1000ml 10:54 Drug: Zofran (Ondansetron) 4 mg Route: IVP; Site: right antecubital; 6 11:54 Follow up: Response: No adverse reaction; Nausea is decreased; Vomiting decreased [facility] 11:49 Drug: Phenergan (promethazine) 25 mg Route: IVP; Site: right antecubital; 6 12:49 Follow up: Response: No adverse reaction; Nausea is decreased; Vomiting decreased 6 13:00 Drug: Zofran (Ondansetron) 4 mg Route: IVP; Site: right antecubital; 6 14:58 Follow up: Response: No adverse reaction; Marked relief of symptoms vg1 14:02 Drug: NS 0.9% 1000 ml Route: IV; Rate: 1 bolus; Site: right antecubital; 1 15:52 Follow up: IV Status: Infusion continued upon transfer [facility] 14:05 Drug: D5W 1000 ml, Sodium Bicarbonate 150 mEq Route: IV; Rate: 125 ml/hr; Site: right vg1 antecubital; 15:52 Follow up: IV Status: Infusion continued upon transfer [facility] 14:11 Drug: Cefepime 1 grams Route: IVPB; Rate: 200 ml/hr; Infused Over: 30 mins; Site: left vg1 antecubital; 14:44 Follow up: IV Status: Completed infusion; IV Intake: 100ml 1 14:52 Drug: vancoMYCIN 1 grams Route: IVPB; Infused Over: 2 hrs; Site: left antecubital; vg1 15:52 Follow up: IV Status: Infusion continued upon transfer kc6 14:55 Drug: Calcium Gluconate 1 grams Route: IVPB; Infused Over: 60 mins; Site: left vg1 antecubital; 15:51 Follow up: Response: No adverse reaction; IV Status: Completed infusion; IV Intake: kc6 100ml Disposition Summary: 03/16/22 12:04 Transfer Ordered Reason: Capacity jh7 Condition: Fair jh7 Problem: new 7 Symptoms: have worsened [facility] Transfer Location: [facility](03/16/22 14:25) [facility] Accepting Physician: Yohan Wallace, Pulmonary ICU (03/16/22 16:35) kc6 Diagnosis - Metabolic Acidosis jh7 - Acute renal failure jh7 - Acute CVA jh7 - Intractable nausea and vomiting 7 Forms: - Medication Reconciliation Form 7 - SBAR form [facility] NIH Stroke Scale - NIH Stroke Score Date: 03/16/2022 Time: 09:15 Total Score = 14 1a. Level of Consciousness (LOC) - 1(Not Alert) 1b. Level of Consciousness (LOC) (Month \T\ Age) - 2(Neither) 1c. LOC Commands (Open \T\ Closes Eyes/Pattern And Chain Maker) - 0(Both) 2. Best Gaze (Lateral Gaze Paresis) - 0(Normal) 3. Visual Field Loss - 0(No visual loss) 4. Facial Palsy - 0(Normal) 5a. Left Arm: Motor (10-second hold) - 2(Drift, some effort against gravity) 5b. Right Arm: Motor (10-second hold) - 2(Drift, some effort against gravity) 6a. Left Leg: Motor (5-second hold - always test supine) - 2(Drift, some effort against gravity) 6b. Right Leg: Motor (5-second hold - always test supine) - 2(Drift, some effort against gravity) 7. Limb Ataxia (finger/nose \T\ heel/evangelista - test with eyes open) - 0(Absent) 8. Sensory Loss (pinprick arms/legs/face) - 0(Normal) 9. Best Language: Aphasia (description/naming/reading) - 3(Mute, global aphasia) 10. Dysarthria (speech clarity - read or repeat words) - 0(Normal) 11. Extinction and Inattention (visual/tactile/auditory/spatial/personal) - 0(No abnormality) Initials: [facility] Signatures: Dispatcher [employer] EDFranklyn Aguilar, RN RN jl7 Nancy Julio RN RN vg1 Concepcion Tarango FNP PSYCHOLOGICAL OPERATIONS jh7 Leatha Ruth RN RN kc6 Corrections: (The following items were deleted from the chart) 10:04 09:48 Abdomen Pelvis W Con+CT.RAD.BRZ ordered. [facility] EDDC 14:25 12:04 [facility] GUAMAN jh7 jh7 14:25 12:04 [facility] jh7 16:35 14:25 Yohan Wallace, Pulmonary ICU jh7 kc6
[2022-03-16] MEDS ORDERED: NA CHLORIDE 0.9% 100 ML IV ONE (12:24)
[2022-03-16] MEDS ORDERED: VANCOMYCIN 1 GM/VIAL ONE (12:24)
[2022-03-16] MEDS ORDERED: CEFEPIME 1 GM/VIAL ONE (12:25)
[2022-03-16] MEDS ORDERED: NA CHLORIDE 0.9% 250 ML ONE (12:29)
[2022-03-16] MEDS ORDERED: D5W 1,000 ML with NA BICARB 8.4% 150 MEQ IV SCH ×2 (13:00)
[2022-03-16] MEDS ORDERED: CALCIUM GLUCONATE 1 GM IVPB 1 GM/50 ML BAG IV ONE (13:28)
[2022-03-16 13:40] LABS: SARS-CoV-2 Antigen Rapid Res Negative (Negative)
[2022-03-16 17:09] VITALS: TEMP 98.2
[2022-03-16 17:10] VITALS: BP 173/91; O2SAT 100
--- NOTE | 2022-03-17 10:50 | EKG ---
Test Date: 2022-03-16 Test Time: 11:45:53 Title Clerk Automobile: SOHAIL MEASUREMENT RESULTS: Intervals: Rate: 80 NV: 146 QRSD: 92 QT: 394 QTc: 454 [place]: P: 70 NV: 146 QRS: 54 T: -6 INTERPRETIVE STATEMENTS: Normal sinus rhythm Nonspecific T wave abnormality Abnormal ECG Compared to ECG 03/19/2017 16:47:32 T-wave abnormality now present Sinus tachycardia no longer present ST (T wave) deviation no longer present Possible ischemia no longer present Electronically Signed On 03-17-22 10:46:48 DATA MANAGER by Juno Abraham
== END 2022-03-16 16:35 | disposition short-term general hospital (02) ==
LOC: ER 09:05
DX: E87.20 Acidosis, unspecified (principal); I63.9 Cerebral infarction, unspecified; N17.9 Acute kidney failure, unspecified; R11.2 Nausea with vomiting, unspecified; Z20.822 Contact with and (suspected) exposure to COVID-19
CPT/HCPCS: 36415; 51702; 70450; 71045; 74176; 80053; 80307; 81003; 81015; 82140; 82550; 82565; 82805; 83605; 84484; 85025; 85610; 85730; 87040; 87045; 87046; 87811; 93005; 99285; G0480; J0610; J0692; J2405; J2550; J3370; J7030; J7050

== ENCOUNTER 2022-08-24 19:35 | Emergency (ER) | payer OTHER ==
[2022-08-24] MEDS ORDERED: ALBUMIN HUMAN 25% 100 ML IV ONE (20:35)
[2022-08-24 20:44] LABS: Albumin 3.3 g/dL (3.4-5.0); Bilirubin Total 0.7 mg/dL (0.2-1.0); Potassium 3.9 mEq/L (3.5-5.1)
[2022-08-24 20:53] LABS: Absolute Lymphocytes (CBC) 1.2 K/uL (0.7-4.9); Lymphocytes % 9.7 % (15.3-44.8); MCV 87.7 fL (80-100); MPV 8.5 fL (7.6-11.3); RBC Red Blood Cell Count 3.76 M/uL (4.33-5.43)
[2022-08-24] MEDS ORDERED: METOCLOPRAMIDE 10 MG/2mL INJ ONE (21:06)
[2022-08-24] MEDS ORDERED: ONDANSETRON 4 MG/2 ML VIAL ONE (21:06)
[2022-08-24] MEDS ORDERED: NA CHLORIDE 0.9% 250 ML ONE (21:06)
[2022-08-24] MEDS ORDERED: VANCOMYCIN 1 GM/VIAL ONE ×2 (21:06→21:16)
[2022-08-24] MEDS ORDERED: PIPERACIL/TAZO 3.375 GM VIAL IV ONE (21:07)
[2022-08-24] MEDS ORDERED: NA CHLORIDE 0.9% 100 ML ONE (21:07)
[2022-08-24] MEDS ORDERED: HYDROMORPHONE HCL 1 MG/ML INJ ONE (21:15)
[2022-08-24 21:19] LABS: Protime INR 1.05
--- NOTE | 2022-08-24 21:45 | RAD REPORT ---
EXAM DESCRIPTION: CT - Chest Abd Pelvis Wo Con - 08/24/2022 9:36 pm CLINICAL HISTORY: Chest and abdomen pain. ABDOMINAL DISTENTION COMPARISON: <Comparisons> TECHNIQUE: A limited noncontrast study was performed. All CT scans are performed using dose optimization technique as appropriate and may include automated exposure control or mA/KV adjustment according to patient size. FINDINGS: The lungs are clear.Right-sided venous catheter its tip in the SVC.No pleural or pericardi al effusion.No intrathoracic adenopathy. Multiple low-density masses throughout the liver parenchyma compatible with metastatic disease. This appears mildly to moderately worse relative to comparative study. The spleen is intact. Pancreas, adr enal glands are normal. Cyst with calcification is present superior pole right kidney. Marked dilatation of the stomach and proximal small intestine noted. Omental/ soft tissue masses michael g the fat in the left upper quadrant at left posterior abdomen noted presumably related to metastatic disease appears to contribute to the degree obstruction. No significant ascites. Right lower quadra nt ostomy noted. Postsurgical changes involve sigmoid colon with soft tissue mass place. No lytic or blastic bone lesion. IMPRESSION: Proximal small bowel obstruction is present with marked distention of the stomach.This m ay be related to significant left upper quadrant and left flank intra-abdominal soft tissue metastati c deposits. Moderate worsening in hepatic metastatic disease.
--- NOTE | 2022-08-24 22:13 | ER ---
Nurse's Notes [facility] Name: Juan Abraham Age: 52 yrs Sex: Male : 1970 Arrival Date: 08/24/2022 Time: 19:35 Bed 17 Private MD: Diagnosis: Other and unspecified intestinal obstruction;Metastatic colon cancer, increased metastatic burden in the liver, cancer associated pain, small bowel obstruction secondary to metastatic disease, gastric distention, elevated troponin, end-stage renal disease on hemodialysis, volume depletion,;Hypovolemic shock, revocation of hospice. Presentation: 08/24 19:43 Chief complaint: EMS states: C/O hypotension BP 69/32 with dizziness, decrease in pf1 appetite,worse in the past 2 months with vomiting x 10 episodes today with chronic back pain of 10. Patient stated took all of his pain medications today including Tylenol #3 and Morphine PO. Patient stated smokes marijuana daily and is currently on Hospice care for Liver and Colon CA and is a DNR. [facility] stated gave patient NS 0.9% 100ml and FSBGL 144 [employer]IONING [employer]. Coronavirus screen: Vaccine status: Patient reports receiving the 2nd dose of the covid vaccine. Moderna Client denies travel out of the [place] in the last 14 days. Client presents with at least one sign or symptom that may indicate coronavirus-19. Ebola Screen: Patient negative for fever greater than or equal to 101.5 degrees Fahrenheit, and additional compatible Ebola Virus Disease symptoms. 19:43 Method Of Arrival: EMS: [facility] pf1 19:43 Initial Sepsis Screen: Does the patient meet any 2 criteria? Systolic BP < 90 mmHg. vc1 Mean Arterial Pressure (MAP) < 65. Yes Does the patient have a suspected source of infection? Yes: Acute abdominal pain. 19:43 Risk Assessment: Do you want to hurt yourself or someone else? Patient reports no vc1 desire to harm self or others. Onset of symptoms is unknown. 19:43 Acuity: RDAHA 2 vc1 Triage Assessment: 20:00 General: Appears distressed, uncomfortable, ill, slender, Behavior is cooperative, vc1 restless. Pain: Complains of pain in abdomen diffusely Pain does not radiate. Pain currently is 10 out of 10 on a pain scale. EENT: No deficits noted. No signs and/or symptoms were reported regarding the EENT system. Neuro: Level of Consciousness is awake, alert, obeys commands, Oriented to person, place, time, situation, Appropriate for age. Cardiovascular: Capillary refill is > 3 seconds Respiratory: Airway is patent Respiratory effort is even, unlabored, Respiratory pattern is regular, symmetrical. GI: Reports lower abdominal pain, upper abdominal pain, intolerance of fluids, intolerance of food, nausea, vomiting. : No deficits noted. No signs and/or symptoms were reported regarding the genitourinary system. Derm: No deficits noted. No signs and/or symptoms reported regarding the dermatologic system. Musculoskeletal: No deficits noted. No signs and/or symptoms reported regarding the musculoskeletal system. Historical: - Allergies: 20:04 No Known Allergies; pf1 - Immunization history:: Client reports having NOT received the Covid vaccine. - Social history:: Smoking status: Patient/guardian denies using tobacco, the patient reports quitting approximately 7 years ago, Patient uses street drugs, marijuana, Patient/guardian denies using alcohol. - Family history:: not pertinent. Screenin:03 [facility] ED Fall Risk Assessment (Adult) History of falling in the last 3 months, pf1 including since admission No falls in past 3 months (0 pts) Confusion or Disorientation No (0 pts) Intoxicated or Sedated No (0 pts) Impaired Gait Yes (1 pt) Mobility Assist Device Used No (0 pt) Altered Elimination No (0 pt) Score/Fall Risk Level 0 - 2 = Low Risk Oriented to surroundings, Maintained a safe environment, Educated pt \T\ family on fall prevention, incl call for assistance when getting out of bed, Assessed \T\ reinforced patient's understanding of fall precautions, Provided non-skid footwear, Hourly rounding (assess needs \T\ fall precautionary measures) done, Used ambulatory aids as needed (educated on \T\ assisted with), Used gait belt as appropriate. Abuse screen: Denies threats or abuse. Nutritional screening: No deficits noted. Tuberculosis screening: No symptoms or risk factors identified. Assessment: 20:00 Reassessment: Pt states he wants to revoke his hospice order, pt states if we lose his vc1 airway he would like for us to intubate and perform all life saving measures. 21:00 Reassessment: No changes from previously documented assessment. Patient and/or family vc1 updated on plan of care and expected duration. Pain level reassessed. 22:00 Reassessment: Patient and/or family updated on plan of care and expected duration. Pain vc1 level reassessed. Patient states feeling better. Patient states symptoms have improved. 23:00 Reassessment: Patient and/or family updated on plan of care and expected duration. Pain vc1 level reassessed. Patient states feeling better. Patient states symptoms have improved. Vital Signs: 19:40 BP 94 / 72; Pulse 92; Resp 16; Temp 98.2; Pulse Ox 100% on R/A; Weight 59.87 kg; Height pf1 5 ft. 8 in. ; Pain 10/10; 19:45 BP 87 / 70; Pulse 89; Resp 16; Pulse Ox 100% ; pf1 20:00 BP 88 / 66; Pulse 87; Resp 13; Pulse Ox 100% ; vc1 20:30 BP 125 / 85; Pulse 89; Resp 17; Pulse Ox 100% ; vc1 21:00 BP 117 / 78; Pulse 74; Resp 12; Pulse Ox 100% ; vc1 21:30 BP 114 / 85; Pulse 76; Resp 11; Pulse Ox 100% ; vc1 22:00 BP 124 / 88; Pulse 83; Resp 13; Pulse Ox 98% ; vc1 23:00 BP 112 / 81; Pulse 85; Resp 12; Pulse Ox 100% ; vc1 19:40 Body Mass Index 20.07 (59.87 kg, 172.72 cm) pf1 19:40 Pain Scale: Adult pf1 ED Course: 19:40 Patient arrived in ED. rv1 19:40 Arm band placed on left wrist. EKG completed in triage. Results shown to MD. vc1 19:40 Patient has correct armband on for positive identification. Placed in gown. Bed in low vc1 position. Call light in reach. Side rails up X2. Client placed on continuous cardiac and pulse oximetry monitoring. NIBP monitoring applied. 19:43 Maintain EMS IV. Dressing intact. Good blood return noted. Site clean \T\ dry. Gauge \T\ pf 1 site: 20gauge to LFA. 20:00 IV discontinued, EMS IV infiltrated. vc1 20:05 Rock Moon MD is Attending Physician. sp4 20:10 Inserted saline lock: 20 gauge in left EJ, using aseptic technique. Inserted by Dr. daniel Moon. 20:10 Assisted provider with central line placement. Set up central line tray. Triple lumen vc1 line placed in left femoral. Line placed by Rock Moon MD Placement verified by blood return, Dressed with Tegaderm, Blood was collected. Patient tolerated well. Before procedure, did Practitioner(s) obtain informed consent? Yes. Patient \T\ family education about procedure, CLABSI prevention and S/S of infection? Yes. Was handwashing/sanitizing done immediately prior to procedure? Yes. Was patient positioned to in a way to prevent air embolism? Yes. Was procedure site sterilized? Yes, with chlorhexidine. Was the site allowed to dry? Yes. Was local anesthetic and/or sedation utilized? Yes. During the procedure, did the Practitioner(s) maintain a sterile field? Yes. Were unused ports clamped during insertion? Yes. Was a 2nd qualified MD obtained after 3 unsuccessful insertion attempts? No. Was blood aspirated from each lumen? Yes. After the procedure, did the Practitioner(s) clean the site and apply a sterile dressing? Yes. 21:38 CT Chest Abdomen Pelvis W/O Contrast In Process Unspecified. EDMS 23:00 SARS RAPID Sent. vc1 23:01 NGT: inserted 16 Fr. via right nare. verified placement of air over stomach, to jw7 intermittent suction. Returned gastric contents. Patient tolerated well. 23:12 Triage completed. vc1 23:45 Maria Antonia Nicholson, RN is Primary Nurse. vc1 Administered Medications: 20:22 Drug: Lactated Ringers Solution IV 1000 ml Route: IV; Rate: 999 bolus; Site: left vc1 jugular; 21:20 Follow up: IV Status: Completed infusion; IV Intake: 1000ml vc1 20:42 Drug: Albumin IVPB 25 grams Volume: 100 ml; Route: IVPB; Site: left femoral; vc1 21:42 Follow up: IV Status: Completed infusion; IV Intake: 100ml vc1 21:04 Drug: Ondansetron IVP 4 mg Route: IVP; Site: left jugular; vc1 21:30 Follow up: Response: No adverse reaction; Nausea is decreased vc1 21:04 Drug: metoCLOPramide IVP 10 mg Route: IVP; Site: left jugular; vc1 21:30 Follow up: Response: No adverse reaction vc1 21:05 Drug: HYDROmorphone IVP 1 mg Route: IVP; Site: left jugular; vc1 22:00 Follow up: Response: No adverse reaction; Marked relief of symptoms vc1 21:15 Drug: vancoMYCIN IVPB 1 grams Route: IVPB; Infused Over: 2 hrs; Site: left femoral; vc1 22:45 Follow up: IV Status: Completed infusion; IV Intake: 250ml vc1 21:15 Drug: Piperacillin-Tazobactam IVPB 3.375 grams Route: IVPB; Infused Over: 60 mins; vc1 Site: left jugular; 22:15 Follow up: IV Status: Completed infusion; IV Intake: 100ml vc1 23:00 Drug: NS 0.9% IV 1000 ml Route: IV; Rate: 100 ml/hr; Site: left jugular; vc1 23:45 Follow up: IV Status: Completed infusion; IV Intake: 1000ml vc1 23:38 CANCELLED (Other Intervention Used): Piperacillin-Tazobactam IVPB 2.25 grams IVPB once vc1 over 60 mins; (mix in NS 100 mL) Medication: 23:13 VIS not applicable for this client. vc1 Intake: 21:20 IV: 1000ml; Total: 1000ml. vc1 21:42 IV: 100ml; Total: 1100ml. vc1 22:15 IV: 100ml; Total: 1200ml. vc1 22:45 IV: 250ml; Total: 1450ml. vc1 23:45 IV: 1000ml; Total: 2450ml. vc1 Outcome: 22:12 ER care complete, transfer ordered by . sp4 23:45 Transferred by ground EMS to [facility], Transfer form vc1 completed. X-rays sent w/ patient. 23:45 Condition: good 23:45 Instructed on the need for transfer. 23:46 Patient left the ED. vc1 Signatures: Dispatcher [employer] EDMS Maria Antonia Nicholson RN RN vc1 Ana Chung Pamala RN RN pf1 Karen Acuña rv1 Rock Moon MD MD sp4 Corrections: (The following items were deleted from the chart) 23:38 21:15 Piperacillin-Tazobactam IVPB 2.25 grams IVPB in left femoral over 60 mins vc1 vc1
--- NOTE | 2022-08-24 22:13 | EDPHYS ---
Physician Documentation [facility] Name: Juan Abraham Age: 52 yrs Sex: Male : 1970 Arrival Date: 08/24/2022 Time: 19:35 Bed 17 Private MD: ED Physician Rock Moon HPI: 08/24 20:05 This 52 yrs old Other Race Male presents to ER via EMS with complaints of General sp4 complaint. 21:17 Patient is 53-year-old male with past medical history of end-stage renal disease on sp4 hemodialysis last dialysis on Sunday 2 days ago. Patient has additional history of diabetes mellitus, hypertension, chronic pain, history of liver and colon cancer with history of partial colectomy diversion ileostomy. Last CAT scan was done here on 06/05/2022 and it has revealed near complete colectomy with Bobo's pouch lower quadrant ileostomy and heterogenous masses in the liver with the largest 6.4 cm. Consistent with metastatic cancer colon cancer with hepatic metastatic disease.. Today patient presents with EMS from home where he is currently on hospice. Patient has revoked his hospice and presents here with worsening vomiting moderate to severe back pain and also there is hypotension that was noted by EMS. . Patient states that he is hospice is officially revoked at this time and he desires to be full code. On arrival patient is hypotensive pale appearing debilitated acutely uncomfortable.. 21:45 on 06/04/2022 patient was transferred to [facility] with the following diagnosis sp4 End stage renal disease - on HD - Abdominal tenderness - METASTATIC COLON CANCER, ON CHEMO , WITH INCREASED LIVER METS - Colostomy malfunction . Historical: - Allergies: 20:04 No Known Allergies; pf1 - Immunization history:: Client reports having NOT received the Covid vaccine. - Social history:: Smoking status: Patient/guardian denies using tobacco, the patient reports quitting approximately 7 years ago, Patient uses street drugs, marijuana, Patient/guardian denies using alcohol. - Family history:: not pertinent. ROS: 21:17 Constitutional: Negative for fever, chills, positive for weight loss, generalized sp4 weakness, physical deconditioning, nonambulatory status. Eyes: Negative for injury, pain, redness, and discharge, ENT: Negative for injury, pain, and discharge, Neck: Negative for injury, pain, and swelling, Cardiovascular: Negative for chest pain, palpitations, and edema, Respiratory: Negative for shortness of breath, cough, wheezing, and pleuritic chest pain, Abdomen/GI: Negative for diarrhea, and constipation, positive for abdominal pain, back pain, nausea vomiting and profuse vomiting. Back: Negative for injury positive for moderate to severe back pain. : Negative for injury, bleeding, discharge, and swelling, MS/Extremity: Negative for injury and deformity, positive for diffuse muscular atrophy. Skin: Negative for injury, rash, and discoloration, Neuro: Negative for headache, numbness, tingling, and seizure, positive for generalized weak, no focal weakness Psych: Negative for depression, anxiety, Allergy/Immunology: Negative for hives, rash, and allergies Endocrine: Negative for neck swelling, polydipsia, polyuria, polyphagia, and weight changes Hematologic/Lymphatic: Negative for swollen nodes, abnormal bleeding, and unusual bruising Exam: 21:45 Constitutional: This is a well developed, well nourished patient who is awake, sp4 patient is ill-appearing, toxic-appearing hypertensive male generalized pallor, moderate to severe physical debility, diffuse muscular atrophy, nonambulatory, with right chest wall permacath for dialysis, right lower quadrant abdominal ileostomy, signs of moderate to severe dehydration, dry mucous membranes, hypotensive on the monitor. Head/Face: Normocephalic, atraumatic. Eyes: Pupils equal round and reactive to light, extra-ocular motions intact. Lids and lashes normal. Conjunctiva and sclera are not injected. Cornea within normal limits. Periorbital areas with no swelling, redness, or edema. ENT: Nares patent. No nasal discharge, no septal abnormalities noted. Tympanic membranes are normal and external auditory canals are clear. Oropharynx with no redness, swelling, or masses, exudates, or evidence of obstruction, uvula midline. Mucous membranes moist. Neck: Trachea midline, no thyromegaly or masses palpated, and no cervical lymphadenopathy. Supple, full range of motion without nuchal rigidity, or vertebral point tenderness. Chest/axilla: Normal chest wall appearance and motion. Nontender with no deformity. No lesions are appreciated. Cardiovascular: Regular rate and rhythm with a normal S1 and S2. No gallops, murmurs, or rubs. Normal PMI, no JVD. Diminished peripheral pulses. Flat neck veins. Respiratory: Lungs have equal breath sounds bilaterally, clear to auscultation and percussion. No rales, rhonchi or wheezes noted. Tachypnea and dyspnea on exam. Abdomen/GI: Soft, non-tender, with normal bowel sounds. No distension or tympany. No guarding or rebound. No evidence of tenderness throughout. Back: No spinal tenderness. No costovertebral tenderness. Male : Normal genitalia with no discharge or lesions. Uncircumcised male. Skin: Warm, dry with normal turgor. Normal color with no rashes, no lesions, and no evidence of cellulitis. MS/ Extremity: Pulses equal, no cyanosis. Neurovascular intact. Moderate to severe diffuse muscular atrophy from immobility, physical debility nonambulatory on exam Neuro: Awake and alert, GCS 15, oriented to person, place, time, and situation. Cranial nerves II-XII grossly intact. Motor strength 5/5 in all extremities. Sensory grossly intact. Psych: Awake, alert, with orientation to person, place and time. Behavior, mood, and affect are within normal limits Vital Signs: 19:40 BP 94 / 72; Pulse 92; Resp 16; Temp 98.2; Pulse Ox 100% on R/A; Weight 59.87 kg; Height pf1 5 ft. 8 in. ; Pain 10/10; 19:45 BP 87 / 70; Pulse 89; Resp 16; Pulse Ox 100% ; pf1 20:00 BP 88 / 66; Pulse 87; Resp 13; Pulse Ox 100% ; vc1 20:30 BP 125 / 85; Pulse 89; Resp 17; Pulse Ox 100% ; vc1 21:00 BP 117 / 78; Pulse 74; Resp 12; Pulse Ox 100% ; vc1 21:30 BP 114 / 85; Pulse 76; Resp 11; Pulse Ox 100% ; vc1 22:00 BP 124 / 88; Pulse 83; Resp 13; Pulse Ox 98% ; vc1 23:00 BP 112 / 81; Pulse 85; Resp 12; Pulse Ox 100% ; vc1 19:40 Body Mass Index 20.07 (59.87 kg, 172.72 cm) pf1 19:40 Pain Scale: Adult pf1 MDM: 20:19 Patient medically screened. sp4 21:59 Differential Diagnosis altered mental status, sepsis, flu. Data reviewed: vital signs, sp4 nurses notes. 21:59 Consideration of Admission/Observation. Management of patient was discussed with the sp4 following: Customer Success Intern: Discussed with general surgeon on-call who advised transfer to [facility] for consultation with colorectal surgery.. ED course: Labs revealed elevated white count 12.2 with neutrophil predominance, hyponatremia sodium 128, glucose 150, creatinine 9.37 consistent with chronic kidney disease, there is elevated total protein 10, albumin decreased 3.3, lipase 124, troponin 66.8 most likely secondary to chronic kidney disease with end-stage renal disease. There is also lactate level of 2.6, procalcitonin 2.8, BNP 11,000. CT abdomen pelvis and chest revealed proximal small bowel obstruction with marked distention of stomach. This may be related to significant left upper quadrant left flank intra-abdominal soft tissue metastatic deposits. There is worsening hepatic metastatic disease. There is omental soft tissue masses along the fat in the left upper quadrant left posterior abdomen. The mass is just inferior to the gastric location, this appears to contribute to the obstruction, no significant ascites, right lower quadrant ostomy, postsurgical changes involving sigmoid colon with soft tissue mass.. 22:07 ED course: Patient was discussed with general surgeon on staff who states patient sp4 should be transferred for consultation with colorectal surgeon. Will attempt transfer to [place] where patient has had his colectomy with Gloria pouch procedure.. 22:23 ED course: Patient discussed with Dr. Rodas at [facility] and accepted for transfer . [facility] 08/24 19:45 Order name: CBC with Diff; Complete Time: 21:48 [facility] 08/24 19:45 Order name: CMP; Complete Time: 21:48 [facility] 08/24 19:45 Order name: Lipase; Complete Time: 21:48 [facility] 08/24 19:52 Order name: Troponin High Sensitivity; Complete Time: 21:48 [facility] 08/24 20:18 Order name: Lactate w/ 2H reflex if indic.; Complete Time: 21:48 [facility] 08/24 20:18 Order name: Troponin High Sensitivity; Complete Time: 21:48 [facility] 08/24 20:42 Order name: Blood Culture Adult (2) vc1 08/24 20:49 Order name: Procalcitonin; Complete Time: 21:48 [facility] 08/24 20:49 Order name: PT-INR; Complete Time: 21:48 sp4 08/24 20:49 Order name: BNP; Complete Time: 21:48 sp4 08/24 21:59 Order name: SARS RAPID sp4 08/24 20:48 Order name: CT Chest Abdomen Pelvis W/O Contrast; Complete Time: 21:48 sp4 08/24 19:45 Order name: IV Saline Lock; Complete Time: 19:52 [facility] 08/24 19:45 Order name: Labs collected and sent; Complete Time: 20:58 [facility] 08/24 19:53 Order name: EKG - Nurse/Tech; Complete Time: 19:53 1 08/24 20:17 Order name: Central Line Kit; Complete Time: 20:58 sp4 08/24 21:51 Order name: Nasogastric Tube; Complete Time: 23:00 sp4 08/24 21:51 Order name: Suction; Complete Time: 23:00 sp4 Administered Medications: 20:22 Drug: Lactated Ringers Solution IV 1000 ml Route: IV; Rate: 999 bolus; Site: left vc1 jugular; 21:20 Follow up: IV Status: Completed infusion; IV Intake: 1000ml vc1 20:42 Drug: Albumin IVPB 25 grams Volume: 100 ml; Route: IVPB; Site: left femoral; vc1 21:42 Follow up: IV Status: Completed infusion; IV Intake: 100ml vc1 21:04 Drug: Ondansetron IVP 4 mg Route: IVP; Site: left jugular; vc1 21:30 Follow up: Response: No adverse reaction; Nausea is decreased vc1 21:04 Drug: metoCLOPramide IVP 10 mg Route: IVP; Site: left jugular; vc1 21:30 Follow up: Response: No adverse reaction vc1 21:05 Drug: HYDROmorphone IVP 1 mg Route: IVP; Site: left jugular; vc1 22:00 Follow up: Response: No adverse reaction; Marked relief of symptoms vc1 21:15 Drug: vancoMYCIN IVPB 1 grams Route: IVPB; Infused Over: 2 hrs; Site: left femoral; vc1 22:45 Follow up: IV Status: Completed infusion; IV Intake: 250ml vc1 21:15 Drug: Piperacillin-Tazobactam IVPB 3.375 grams Route: IVPB; Infused Over: 60 mins; vc1 Site: left jugular; 22:15 Follow up: IV Status: Completed infusion; IV Intake: 100ml vc1 23:00 Drug: NS 0.9% IV 1000 ml Route: IV; Rate: 100 ml/hr; Site: left jugular; vc1 23:45 Follow up: IV Status: Completed infusion; IV Intake: 1000ml vc1 23:38 CANCELLED (Other Intervention Used): Piperacillin-Tazobactam IVPB 2.25 grams IVPB once vc1 over 60 mins; (mix in NS 100 mL) Disposition Summary: 08/24/22 22:12 Transfer Ordered Transfer Location: [facility] sp4 Reason: Higher level of care sp4 Condition: Stable sp4 Problem: new sp4 Symptoms: have improved sp4 Accepting Physician: [facility] attending(08/24/22 23:46) vc1 Diagnosis - Other and unspecified intestinal obstruction sp4 - Metastatic colon cancer, increased metastatic burden in the liver, cancer sp4 associated pain, small bowel obstruction secondary to metastatic disease, gastric distention, elevated troponin, end-stage renal disease on hemodialysis, volume depletion, - Hypovolemic shock, revocation of hospice. sp4 Forms: - Medication Reconciliation Form sp4 - SBAR form sp4 Signatures: Dispatcher [employer] EDMS Carlos A Arambula PA PA jmm Calcote, Vanessa, RN RN vc1 Belen Ocampo RN RN pf1 Rock Moon MD MD sp4 Corrections: (The following items were deleted from the chart) 23:38 20:48 Piperacillin-Tazobactam IVPB 2.25 grams IVPB once over 60 mins; (mix in NS 100 vc1 mL) ordered. sp4 23:38 21:39 Piperacillin-Tazobactam IVPB 2.25 grams IVPB once over 60 mins; (mix in NS 100 vc1 mL) given. vc1 23:38 23:38 Piperacillin-Tazobactam IVPB 2.25 grams IVPB once over 60 mins; (mix in NS 100 vc1 mL) ordered. vc1 23:46 22:12 [facility] attending sp4 vc1
[2022-08-24] MEDS ORDERED: NA CHLORIDE 0.9% 1,000 ML ONE (22:31)
[2022-08-24 23:17] LABS: SARS-CoV-2 Antigen Rapid Res Negative (Negative)
[2022-08-25 00:51] VITALS: TEMP 98.2
[2022-08-25 00:59] VITALS: BP 112/81; O2SAT 100
--- NOTE | 2022-08-28 17:19 | EKG ---
Test Date: 2022-08-24 Test Time: 19:45:56 Dealer Card Room: [facility] MEASUREMENT RESULTS: Intervals: Rate: 90 ME: 132 QRSD: 88 QT: 356 QTc: 435 Converse: P: 77 ME: 132 QRS: 81 T: 141 INTERPRETIVE STATEMENTS: Normal sinus rhythm Possible Left atrial enlargement Possible Anterior infarct, age undetermined ST & T wave abnormality, consider inferolateral ischemia Abnormal ECG Compared to ECG 06/04/2022 23:50:03 Myocardial infarct finding now present ST (T wave) deviation now present Possible ischemia now present Electronically Signed On 08-28-22 17:12:55 CDT by Moshe Zeng
== END 2022-08-24 23:46 | disposition short-term general hospital (02) ==
LOC: ER 19:35
DX: R57.1 Hypovolemic shock (principal); C18.9 Malignant neoplasm of colon, unspecified; C78.7 Secondary malignant neoplasm of liver and intrahepatic bile duct; G89.3 Neoplasm related pain (acute) (chronic); K56.609 Unspecified intestinal obstruction, unspecified as to partial versus complete obstruction; E86.9 Volume depletion, unspecified; K31.89 Other diseases of stomach and duodenum; R74.8 Abnormal levels of other serum enzymes; E11.22 Type 2 diabetes mellitus with diabetic chronic kidney disease; I12.0 Hypertensive chronic kidney disease with stage 5 chronic kidney disease or end stage renal disease; N18.6 End stage renal disease; Z99.2 Dependence on renal dialysis; Z20.822 Contact with and (suspected) exposure to COVID-19
CPT/HCPCS: 87040 ×2; 85025; 36415; 87205 ×2; 85610; 83605; 84484 ×2; 83690; 80053; 84145; 83880; 71250; 74176; 99285; 87811; J2765; J2543; J1170; J2405; P9047; J7050; J7030; 93005